=== PATIENT | male | born 1940 | race Hispanic/Latino ===

== ENCOUNTER 2017-03-23 18:47 | Inpatient (IN) | payer MEDICARE, OTHER ==
[2017-03-23 18:48] VITALS: BMI 27.8
--- NOTE | 2017-03-23 19:54 | ED PDOC ---
Syncope/Near Syncope/Dizziness Time Seen by Provider: 03/23/17 19:19 Chief Complaint (Nursing): Syncope Chief Complaint (Provider): Syncope History Per: Patient History/Exam Limitations: no limitations Onset/Duration Of Symptoms: Days (x1) Current Symptoms Are (Timing): Still Present Additional Complaint(s): Lucian Romeo is a 76 year old with previous medical history of myelodysplastic syndrome, CAD, HTN, CHF, hypothyroidism, and COPD, who presents to the emergency department accompanied by his daughter for an evaluation after a syncopal event around 13:00 today. He complains of weakness, nausea, and mild shortness of breath. Denied any chest pain, cough, fever, chills, or weight loss. Of note, patient was discharged yesterday from [facility] after a 2 day stay for general feeling of weakness and nausea. PMD: none provided Past Medical History Reviewed: Historical Data, Nursing Documentation, Vital Signs Vital Signs: Last Vital Signs Temp 97.6 F 03/23/17 18:56 Pulse 64 03/23/17 18:56 Resp 18 03/23/17 18:56 BP 112/58 L 03/23/17 18:56 Pulse Ox 98 03/23/17 18:56 - Medical History PMH: Anemia, Asthma, CAD, COPD, HTN, Hypercholesterolemia, Hyperlipidemia, Hypothyroidism, Chronic Kidney Disease Denies: HIV - Surgical History Surgical History: CABG - Family History Family History: States: No Known Family Hx - Social History Current smoker - smoking cessation education provided: No Alcohol: None Drugs: Denies - Home Medications Home Medications: Ambulatory Orders Medication Instructions Recorded Allopurinol [Zyloprim] 100 mg PO DAILY 12/26/15 Calcitriol [Rocaltrol] 0.25 mcg PO DAILY 12/26/15 Gabapentin [Neurontin] 300 mg PO BID 12/26/15 Metoprolol Succinate [Toprol XL] 200 mg PO DAILY 12/26/15 Omeprazole [Prilosec] 20 mg PO BID 12/26/15 Terazosin [Hytrin] 10 mg PO HS 12/26/15 Citalopram Hydrobromide 60 mg PO DAILY 01/15/16 [Citalopram HBr] Aspirin [Aspirin Chewable] 81 mg PO DAILY 03/23/17 Cholecalciferol [Vitamin D 1000 IU] 1,000 units PO DAILY 03/23/17 Finasteride [Proscar] 5 mg PO DAILY 03/23/17 Fluconazole [Fluconazole] 200 mg PO DAILY 03/23/17 Hydrochlorothiazide [Microzide] 12.5 mg PO DAILY 03/23/17 Isosorbide Mononitrate [Imdur] 60 mg PO DAILY 03/23/17 Levothyroxine [Synthroid] 88 mcg PO DAILY 03/23/17 Lisinopril [Zestril] 20 mg PO DAILY 03/23/17 Simvastatin [Simvastatin] 40 mg PO HS 03/23/17 Zolpidem Tartrate [Ambien] 10 mg PO HS 03/23/17 - Allergies Allergies/Adverse Reactions: Allergies Allergy/AdvReac Type Severity Reaction Status Date / Time No Known Allergies Allergy Verified 12/26/15 12:50 Review of Systems ROS Statement: Except As Marked, All Systems Reviewed And Found Negative Constitutional: Negative for: Fever, Chills, Weight loss Cardiovascular: Negative for: Chest Pain Respiratory: Positive for: Shortness of Breath (mild). Negative for: Cough Gastrointestinal: Positive for: Nausea Neurological: Positive for: Weakness Physical Exam - Reviewed Nursing Documentation Reviewed: Yes Vital Signs Reviewed: Yes - Physical Exam Appears: Positive for: Well, Non-toxic, No Acute Distress Head Exam: Positive for: ATRAUMATIC, NORMAL INSPECTION, NORMOCEPHALIC Skin: Positive for: Normal Color, Warm, DRY Eye Exam: Positive for: Normal appearance Cardiovascular/Chest: Positive for: Regular Rate, Rhythm Respiratory: Positive for: Normal Breath Sounds. Negative for: Crackles, Rales , Rhonchi, Wheezing Extremity: Positive for: Normal ROM. 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 Brain: Mild atrophy. No definite intracranial hemorrhage. No mass. Few scattered foci of decreased attenuation within periventricular/subcortical white matter. No definite edema. Ventricles: No hydrocephalus. Bones/joints: No acute fracture. Soft tissues: Unremarkable. Vasculature: Atherosclerotic disease of intracranial arteries. Sinuses: Scattered minimal mucosal thickening. Mastoid air cells: No mastoid effusion. Orbits: Unremarkable as visualized. IMPRESSION: 1. Nonspecific white matter changes. Acute infarction may be CT occult within first 24 hours. If a focal deficit persists, consider followup CT or MRI for further evaluation. 2. Incidental/non-acute findings are described above. Time: 2058 --Labs: significant clinical abnormality. Hemoglobin level reflect anemia. --Discussed with Dr. Mobley. Patient will be placed in OBS for syncope. Scribe Attestation: Documented by Annie Tamayo, acting as a scribe for Scott Valdez MD. Provider Scribe Attestation: All medical record entries made by the Scribe were at my direction and personally dictated by me. I have reviewed the chart and agree that the record accurately reflects my personal performance of the history, physical exam, medical decision making, and the department course for this patient. I have also personally directed, reviewed, and agree with the discharge instructions and disposition. Disposition - Clinical Impression Clinical Impression: Syncope - Patient ED Disposition Is Patient to be Admitted: Yes Counseled Patient/Family Regarding: Studies Performed, Diagnosis, Need For Followup - Disposition Disposition Time: 20:59 Condition: FAIR - Pt Status Changed To: Hospital Disposition Of: Observation
[2017-03-23 20:09] LABS: ALB/GLOB RATIO 1.2 (1.0-2.1); ALBUMIN 3.9 g/dL (3.5-5.0)
[2017-03-23 20:22] LABS: TROPONIN I 0.015 ng/mL (0.00-0.120)
[2017-03-23 20:25] LABS: PROTHROMBIN TIME 11.2 Seconds (9.8-13.1)
[2017-03-23 20:26] LABS: PARTIAL THROMBOPLASTIN TIME 28.5 Seconds (25.6-37.1)
[2017-03-23 20:28] LABS: BASO % 0.3 % (0.0-2.0); EOS # 0.1 K/uL (0.0-0.7); EOS % 3.3 % (0.0-4.0); LYMPH # 1.5 K/uL (1.0-4.3); LYMPH % 39.6 % (20.0-40.0); MEAN CELL VOLUME 103.1 fl (80.0-94.0); MEAN CORPUSCULAR HEMOGLOBIN 34.8 pg (27.0-31.0); MEAN CORPUSCULAR HGB CONC 33.7 g/dL (33.0-37.0); MONO # 0.5 K/uL (0.0-0.8); MONO % 12.2 % (0.0-10.0); NEUT # 1.7 K/uL (1.8-7.0); NEUT % 44.6 % (50.0-75.0); NRBC % 0.2 % (0.0-0.0); RBC 2.58 Mil/uL (4.40-5.90); RED CELL DISTRIBUTION WIDTH 17.7 % (11.5-14.5); WHITE BLOOD COUNT 3.7 K/uL (4.8-10.8)
--- NOTE | 2017-03-23 21:52 | CT ---
EXAM: CT Head Without Intravenous Contrast CLINICAL HISTORY: 76 years old, male; Signs and symptoms; Syncope and collapse TECHNIQUE: Axial computed tomography images of the head/brain without intravenous contrast. This CT exam was performed using one or more of the following dose reduction techniques: automated exposure control, adjustment of the mA and/or kV according to patient size, and/or use of iterative reconstruction technique. Coronal and sagittal reformatted images were created and reviewed. COMPARISON: CT - HEAD W/O CONTRAST 12/15/2015 2:08:45 PM FINDINGS: Limitations: Motion artifact - mild. Brain: Mild atrophy. No definite intracranial hemorrhage. No mass. Few scattered foci of decreased attenuation within periventricular/subcortical white matter. No definite edema. Ventricles: No hydrocephalus. Bones/joints: No acute fracture. Soft tissues: Unremarkable. Vasculature: Atherosclerotic disease of intracranial arteries. Sinuses: Scattered minimal mucosal thickening. Mastoid air cells: No mastoid effusion. Orbits: Unremarkable as visualized. IMPRESSION: 1. Nonspecific white matter changes. Acute infarction may be CT occult within first 24 hours. If a focal deficit persists, consider followup CT or MRI for further evaluation. 2. Incidental/non-acute findings are described above.
[2017-03-24] MEDS: Levothyroxine 88 MCG TAB PO SCH (06:39)
[2017-03-24 06:58] LABS: HEMOGLOBIN 8.9 g/dL (12.0-18.0); MEAN CELL VOLUME 103.8 fl (80.0-94.0); MEAN CORPUSCULAR HEMOGLOBIN 34.6 pg (27.0-31.0); MEAN CORPUSCULAR HGB CONC 33.4 g/dL (33.0-37.0); RBC 2.56 Mil/uL (4.40-5.90); RED CELL DISTRIBUTION WIDTH 17.9 % (11.5-14.5); WHITE BLOOD COUNT 4.3 K/uL (4.8-10.8)
[2017-03-24 07:20] LABS: ALB/GLOB RATIO 1.1 (1.0-2.1); ALBUMIN 3.7 g/dL (3.5-5.0); CALCIUM 8.9 mg/dL (8.4-10.2)
[2017-03-24] MEDS: Pantoprazole 40 mg EC Tab PO SCH (08:56)
[2017-03-24] MEDS: Metoprolol Succinate 100 mg XL Tab PO SCH (08:57)
[2017-03-24] MEDS: Enoxaparin 30 mg Syringe SC SCH (11:20)
--- NOTE | 2017-03-24 16:04 | CP.PCM.HP ---
<AnishfeliciaWes slade - Last Filed: 03/25/17 10:27> History of Present Illness - History of Present Illness History of Present Illness: 76 year old male with a PMHx remarkable for myelodysplastic syndrome, CAD, HTN , CHF, hypothyroidism, and COPD, who presented to the emergency department accompanied by his daughter for an evaluation after a near syncopal event around 1pm when he was returning from [place]. Pt reports after a recent stay at [facility] he was in his general state of health, but as he was walking back to his car he reports his legs weakened and "gave out". He ended up falling over onto his car and leaned against it till he regained strength. Denies LOC. The leg weakness is associated with lightheadedness, nausea and mild shortness of breath. Denies fever/chills, headaches, CP/Palpitations, V/D/C , urinary symptoms, numbness/tingling. PMD: prior PMD in [place], only being followed at [facility] for Myelodysplastic PMHx: as per HPI Meds: as per med rec ALL: NKDA Social: denies ETOH, tobacco, drug abuse ED COURSE: CT head without contrast EKG BNP Labs Troponin I PTT Accucheck Urinalysis Present on Admission - Present on Admission Any Indicators Present on Admission: No Review of Systems - Review of Systems All systems: reviewed and no additional remarkable complaints except - Constitutional Constitutional: As Per HPI Past Patient History - Past Medical History & Family History Past Medical History?: No - Past Social History Smoking Status: Never Smoked Alcohol: None Drugs: Denies Home Situation {Lives}: With Family Domestic Violence: Negative - CARDIAC Hx Hypercholesterolemia: Yes Hx Hypertension: Yes - PULMONARY Hx Asthma: Yes Hx Chronic Obstructive Pulmonary Disease (COPD): Yes - NEUROLOGICAL Hx Neurological Disorder: No - HEENT Hx HEENT Problems: No - RENAL Hx Chronic Kidney Disease: Yes - ENDOCRINE/METABOLIC Hx Hypothyroidism: Yes - HEMATOLOGICAL/ONCOLOGICAL Hx Anemia: Yes Hx Human Immunodeficiency Virus (HIV): No - INTEGUMENTARY Hx Dermatological Problems: No - MUSCULOSKELETAL/RHEUMATOLOGICAL Hx Falls: Yes - GASTROINTESTINAL Hx Gastrointestinal Disorders: No - GENITOURINARY/GYNECOLOGICAL Hx Prostate Problems: Yes - PSYCHIATRIC Hx Psychophysiologic Disorder: No Hx Substance Use: No - SURGICAL HISTORY Hx Coronary Artery Bypass Graft: Yes - ANESTHESIA Hx Anesthesia: Yes Hx Anesthesia Reactions: No Hx Malignant Hyperthermia: No Meds Allergies/Adverse Reactions: Allergies Allergy/AdvReac Type Severity Reaction Status Date / Time No Known Allergies Allergy Verified 12/26/15 12:50 Physical Exam - Constitutional Appears: Non-toxic, No Acute Distress - Head Exam Head Exam: ATRAUMATIC, NORMOCEPHALIC - Eye Exam Eye Exam: EOMI. absent: Conjunctival injection, Scleral icterus Pupil Exam: PERRL - ENT Exam ENT Exam: Mucous Membranes Moist - Neck Exam Neck exam: Positive for: Normal Inspection - Respiratory Exam Respiratory Exam: Clear to Auscultation Bilateral, NORMAL BREATHING PATTERN. absent: Rales, Rhonchi, Wheezes - Cardiovascular Exam Cardiovascular Exam: REGULAR RHYTHM, RRR, +S1, +S2. absent: Tachycardia, Gallop , JVD, Rubs, Systolic Murmur - GI/Abdominal Exam GI & Abdominal Exam: Normal Bowel Sounds, Soft. absent: Distended, Firm, Guarding, Hernia, Tenderness - Extremities Exam Extremities exam: Positive for: full ROM, normal inspection, pedal pulses present. Negative for: pedal edema, tenderness - Back Exam Back exam: NORMAL INSPECTION - Neurological Exam Neurological exam: Alert, CN II-XII Intact, Normal Gait, Oriented x3, Reflexes Normal - Psychiatric Exam Psychiatric exam: Normal Affect, Normal Mood Results - Vital Signs Recent Vital Signs: Last Vital Signs Temp 97.6 F 03/24/17 12:32 Pulse 63 03/24/17 12:32 Resp 20 03/24/17 12:32 BP 114/67 03/24/17 12:32 Pulse Ox 97 03/24/17 12:32 - Labs Result Diagrams: 03/24/17 05:25 03/25/17 09:40 Labs: Laboratory Results - last 24 hr 03/24/17 03/24/17 03/24/17 05:25 05:25 05:25 WBC 4.3 L RBC 2.56 L Hgb 8.9 L Hct 26.6 L MCV 103.8 H MCH 34.6 H MCHC 33.4 RDW 17.9 H Plt Count 80 L Sodium 137 Potassium 4.0 Chloride 104 Carbon Dioxide 25 Anion Gap 13 BUN 64 H Creatinine 3.0 H Est GFR ( Amer) 25 Est GFR (Non-Af Amer) 21 Random Glucose 84 Hemoglobin A1c 6.3 Calcium 8.9 Total Bilirubin 0.3 AST 26 ALT 29 Alkaline Phosphatase 45 Troponin I Total Protein 6.9 Albumin 3.7 Globulin 3.2 Albumin/Globulin Ratio 1.1 Triglycerides 142 Cholesterol 116 LDL Cholesterol Direct 51 HDL Cholesterol 25 L TSH 3rd Generation 3.79 03/24/17 05:25 WBC RBC Hgb Hct MCV MCH MCHC RDW Plt Count Sodium Potassium Chloride Carbon Dioxide Anion Gap BUN Creatinine Est GFR ( Amer) Est GFR (Non-Af Amer) Random Glucose Hemoglobin A1c Calcium Total Bilirubin AST ALT Alkaline Phosphatase Troponin I 0.0240 Total Protein Albumin Globulin Albumin/Globulin Ratio Triglycerides Cholesterol LDL Cholesterol Direct HDL Cholesterol TSH 3rd Generation Assessment & Plan (1) Near syncope Assessment and Plan: neurology consult with Dr. Barboza cardiology consult with Dr. Perkins f/u labs admitted to tele for monitoring Status: Acute (2) HTN (hypertension) Assessment and Plan: changed Metoprolol 200mg to 50mg BID D/Blake HCTZ Added Amlodipine 5mg QD Status: Chronic (3) Chronic kidney disease (CKD) Assessment and Plan: GFR noted to be [address] Rogers appreciated Status: Chronic (4) DVT prophylaxis Assessment and Plan: Lovenox SC QD Status: Acute <Riley Kern L - Last Filed: 03/26/17 09:40> Results - Vital Signs Recent Vital Signs: Last Vital Signs Temp 98.1 F 03/26/17 08:48 Pulse 59 L 03/26/17 08:48 Resp 20 03/26/17 08:48 BP 169/77 H 03/26/17 08:48 Pulse Ox 98 03/26/17 08:48 - Labs Result Diagrams: 03/24/17 05:25 03/26/17 08:35 Labs: Laboratory Results - last 24 hr 03/25/17 03/25/17 03/25/17 09:40 10:35 18:30 Sodium 137 Potassium 3.5 L Chloride 103 Carbon Dioxide 24 Anion Gap 14 BUN 53 H Creatinine 2.6 H Est GFR ( Amer) 29 Est GFR (Non-Af Amer) 24 Random Glucose 144 H Calcium 9.1 Total Bilirubin AST ALT Alkaline Phosphatase Total Protein Albumin Globulin Albumin/Globulin Ratio Urine Color Straw Urine Clarity Clear Urine pH 7.0 Ur Specific [place] 1.010 Urine Protein 30 Urine Glucose (UA) Neg Urine Ketones Negative Urine Blood Negative Urine Nitrate Negative Urine Bilirubin Negative Urine Urobilinogen 0.2-1.0 Ur Leukocyte Esterase Neg Urine RBC (Auto) 1 Urine Microscopic WBC < 1 Hep Bs Antigen Negative Hep Bs Antibody Hepatitis C Antibody 03/25/17 03/25/17 03/26/17 18:30 18:30 08:35 Sodium 136 Potassium 4.0 Chloride 105 Carbon Dioxide 24 Anion Gap 12 BUN 49 H Creatinine 2.2 H Est GFR ( Amer) 36 Est GFR (Non-Af Amer) 29 Random Glucose 89 Calcium 9.1 Total Bilirubin 0.2 AST 21 ALT 32 Alkaline Phosphatase 47 Total Protein 6.6 Albumin 3.6 Globulin 3.0 Albumin/Globulin Ratio 1.2 Urine Color Urine Clarity Urine pH Ur Specific [place] Urine Protein Urine Glucose (UA) Urine Ketones Urine Blood Urine Nitrate Urine Bilirubin Urine Urobilinogen Ur Leukocyte Esterase Urine RBC (Auto) Urine Microscopic WBC Hep Bs Antigen Hep Bs Antibody Negative Hepatitis C Antibody Negative Assessment & Plan - Assessment and Plan (Free Text) Plan: I was present during evaluation and discussed with Dr Daniel re plans of care and mgt Riley Kern M.D.
--- NOTE | 2017-03-24 17:43 | CP.PCM.CON ---
History of Present Illness - History of Present Illness History of Present Illness: I was asked to see patietn by Dr. Kern. Patient is a 76 year old male with a PMH HTN, who presents with dizziness. The patient had a recent hospital stay at [facility] for nausea and vomiting. The patient has a history of myeodysplastic syndrome and is currently being treated at [facility]. He was walking when he felt lighheaded. He denies chest pain or palpitations. Review of Systems - Constitutional Constitutional: Weakness - EENT Eyes: absent: As Per HPI, Blind Spots, Blurred Vision, Change in Vision, Decreased Night Vision, Diplopia, Discharge, Dry Eye, Exophthalmos, Floaters, Irritation, Itchy Eyes, Loss of Peripheral Vision, Pain, Photophobia, Requires Corrective Lenses, Sees Flashes, Spots in Vision, Tunnel Vision, Other Visual Disturbances, Loss of Vision, Other Ears: absent: As Per HPI, Decreased Hearing, Ear Discharge, Ear Pain, Tinnitus, Abnormal Hearing, Disequilibrium, Dizziness, Other Nose/Mouth/Throat: absent: As Per HPI, Epistaxis, Nasal Congestion, Nasal Discharge, Nasal Obstruction, Nasal Trauma, Nose Pain, Post Nasal Drip, Sinus Pain, Sinus Pressure, Bleeding Gums, Change in Voice, Dental Pain, Dry Mouth, Dysphagia, Halitosis, Hoarsness, Lip Swelling, Mouth Lesions, Mouth Pain, Odynophagia, Sore Throat, Throat Swelling, Tongue Swelling, Facial Pain, Neck Pain, Neck Mass, Other - Cardiovascular Cardiovascular: absent: As Per HPI, Acrocyanosis, Chest Pain, Chest Pain at Rest , Chest Pain with Activity, Claudication, Diaphoresis, Dyspnea, Dyspnea on Exertion, Edema, Irregular Heart Rhythm, Pain Radiating to Arm/Neck/Jaw, Leg Edema, Leg Ulcers, Lightheadedness, Orthopnea, Palpitations, Paroxysmal Nocturnal Dyspnea, Pedal Edema, Radiating Pain, Rapid Heart Rate, Slow Heart Rate, Syncope, Other - Respiratory Respiratory: absent: As Per HPI, Cough, Dyspnea, Hemoptysis, Dyspnea on Exertion , Wheezing, Snoring, Stridor, Pain on Inspiration, Chest Congestion, Excessive Mucous Production, Change in Mucous Color, Pain with Coughing, Other - Gastrointestinal Gastrointestinal: absent: As Per HPI, Abdominal Pain, Belching, Bloating, Change in Bowel Habits, Change in Stool Character, Coffee Ground Emesis, Constipation, Cramping, Diarrhea, Dyspepsia, Dysphagia, Early Satiety, Excessive Flatus, Fecal Incontinence, Heartburn, Hematemesis, Hematochezia, Loose Stools, Melena, Nausea, Odynophagia, Temesmus, Vomiting, Other - Genitourinary Genitourinary: absent: As Per HPI, Change in Urinary Stream, Difficulty Urinating, Dysuria, Flank Pain, Hematuria, Pyuria, Nocturia, Urinary Incontinence, Urinary Frequency, Urinary Hesitance, Urinary Urgency, Voiding Freq/Small Amts, Freq UTI, Hx Renal/Bladder Calculi, Hx /Renal Surgery, Bladder Distension, Other - Musculoskeletal Musculoskeletal: absent: As Per HPI, Abnormal Gait, Arthralgias, Atrophy, Back Pain, Deformity, Joint Swelling, Limited Range of Motion, Loss of Height, Muscle Cramps, Muscle Weakness, Myalgias, Neck Pain, Numbness, Radiating Pain into Limb, Stiffness, Tingling, Other - Integumentary Integumentary: absent: As Per HPI, Acne, Alopecia, Bleeding Lesions, Change in Hair, Change in Nails, Change in Pigmentation, Changing Lesions, Dry Skin, Erythema, Furuncle, Hirsutism, Lesions, New Lesions, Non-Healing Lesions, Photosensitivity, Pruritus, Rash, Skin Pain, Skin Ulcer, Sores, Striae, Swelling , Unusual Bruising, Wounds, Jaundice, Other - Neurological Neurological: absent: As Per HPI, Abnormal Gait, Abnormal Hearing, Abnormal Movements, Abnormal Speech, Behavioral Changes, Burning Sensations, Confusion, Convulsions, Disequilibrium, Dizziness, Numbness, Focal Weakness, Frequent Falls , Headaches, Lack of Coordination, Loss of Vision, Memory Loss, Paresthesias, Radicular Pain, Restless Legs, Sensory Deficit, Syncope, Tingling, Tremor, Vertigo, Weakness, Other Visual Disturbances, Other - Psychiatric Psychiatric: absent: As Per HPI, Abnormal Sleep Pattern, Anhedonia, Anxiety, Auditory Hallucinations, Behavioral Changes, Change in Appetite, Change in Libido, Confusion, Depression, Difficulty Concentrating, Hallucinations, Homicidal Ideation, Hopelessness, Irritability, Memory Loss, Mood Swings, Panic Attacks, Paranoia, Suicidal Ideation, Visual Hallucinations, Tactile Hallucinations, Other - Endocrine Endocrine: absent: As Per HPI, Change in Body Appearance, Change in Libido, Cold Intolorance, Deepening of Voice, Excessive Sweating, Fatigue, Flushing, Heat Intolorance, Increase in Ring/Shoe/Hat Size, Palpitations, Polydipsia, Polyphagia, Polyuria, Other - Hematologic/Lymphatic Hematologic: absent: As Per HPI, Easy Bleeding, Easy Bruising, Lymphadenopathy, Other Past Patient History - Past Medical History & Family History Past Medical History?: No - Past Social History Alcohol: None Drugs: Denies - CARDIAC Hx Hypercholesterolemia: Yes Hx Hypertension: Yes - PULMONARY Hx Asthma: Yes Hx Chronic Obstructive Pulmonary Disease (COPD): Yes - NEUROLOGICAL Hx Neurological Disorder: No - HEENT Hx HEENT Problems: No - RENAL Hx Chronic Kidney Disease: Yes - ENDOCRINE/METABOLIC Hx Hypothyroidism: Yes - HEMATOLOGICAL/ONCOLOGICAL Hx Anemia: Yes Hx Human Immunodeficiency Virus (HIV): No - INTEGUMENTARY Hx Dermatological Problems: No - MUSCULOSKELETAL/RHEUMATOLOGICAL Hx Falls: Yes - GASTROINTESTINAL Hx Gastrointestinal Disorders: No - GENITOURINARY/GYNECOLOGICAL Hx Prostate Problems: Yes - PSYCHIATRIC Hx Psychophysiologic Disorder: No Hx Substance Use: No - SURGICAL HISTORY Hx Coronary Artery Bypass Graft: Yes - ANESTHESIA Hx Anesthesia: Yes Hx Anesthesia Reactions: No Hx Malignant Hyperthermia: No Meds Allergies/Adverse Reactions: Allergies Allergy/AdvReac Type Severity Reaction Status Date / Time No Known Allergies Allergy Verified 12/26/15 12:50 - Medications Medications: Current Medications Acetaminophen (Tylenol 325mg Tab) 650 mg PO Q6 PRN PRN Reason: Pain, moderate (4-7) Last Admin: 03/24/17 17:11 Dose: 650 mg Allopurinol (Zyloprim) 100 mg PO DAILY [facility] Last Admin: 03/24/17 08:57 Dose: 100 mg Aspirin (Aspirin Chewable) 81 mg PO DAILY [facility] Last Admin: 03/24/17 08:55 Dose: 81 mg Atorvastatin Calcium (Lipitor) 20 mg PO [facility] Calcitriol (Rocaltrol) 0.25 mcg PO DAILY [facility] Last Admin: 03/24/17 08:56 Dose: 0.25 mcg Cholecalciferol (Vitamin D) 1,000 iu PO DAILY [facility] Last Admin: 03/24/17 08:57 Dose: 1,000 iu Enoxaparin Sodium (Lovenox) 30 mg SC DAILY [facility] PRN Reason: Protocol Last Admin: 03/24/17 11:20 Dose: 30 mg Finasteride (Proscar) 5 mg PO DAILY [facility] Last Admin: 03/24/17 08:56 Dose: 5 mg Fluconazole (Diflucan) 200 mg PO DAILY [facility] Last Admin: 03/24/17 08:55 Dose: 200 mg Gabapentin (Neurontin) 300 mg PO BID [facility] Last Admin: 03/24/17 17:09 Dose: 300 mg Home Med (Citalopram Hydrobromide [Citalopram Hbr]) 60 mg PO DAILY [facility] Hydrochlorothiazide (Microzide) 12.5 mg PO DAILY [facility] Last Admin: 03/24/17 08:56 Dose: 12.5 mg Isosorbide Mononitrate (Imdur) 60 mg PO DAILY [facility] Last Admin: 03/24/17 08:56 Dose: 60 mg Levothyroxine Sodium (Synthroid) 88 mcg PO DAILY@0630 [facility] Last Admin: 03/24/17 06:39 Dose: 88 mcg Lisinopril (Zestril) 20 mg PO DAILY [facility] Last Admin: 03/24/17 08:57 Dose: 20 mg Metoprolol Succinate (Toprol Xl) 200 mg PO DAILY [facility] Last Admin: 03/24/17 08:57 Dose: 200 mg Pantoprazole Sodium (Protonix Ec Tab) 40 mg PO DAILY [facility] Last Admin: 03/24/17 08:56 Dose: 40 mg Terazosin HCl (Hytrin) 10 mg PO [facility] Zolpidem Tartrate (Ambien) 5 mg PO HS PRN PRN Reason: Insomnia Last Admin: 03/24/17 01:11 Dose: 5 mg Physical Exam - Constitutional Appears: Non-toxic - Head Exam Head Exam: NORMAL INSPECTION - Eye Exam Eye Exam: Normal appearance - ENT Exam ENT Exam: Mucous Membranes Moist - Neck Exam Neck exam: Positive for: Normal Inspection - Respiratory Exam Respiratory Exam: NORMAL BREATHING PATTERN - Cardiovascular Exam Cardiovascular Exam: REGULAR RHYTHM - GI/Abdominal Exam GI & Abdominal Exam: Normal Bowel Sounds - Rectal Exam Rectal Exam: Deferred - Extremities Exam Extremities exam: Positive for: pedal pulses present - Back Exam Back exam: NORMAL INSPECTION - Neurological Exam Neurological exam: Alert, Oriented x3 - Psychiatric Exam Psychiatric exam: Normal Mood - Skin Skin Exam: Normal Color Results - Vital Signs Recent Vital Signs: Last Vital Signs Temp 97.5 F L 03/24/17 16:09 Pulse 60 03/24/17 16:09 Resp 16 03/24/17 16:09 BP 151/62 H 03/24/17 16:09 Pulse Ox 98 03/24/17 16:09 - Labs Result Diagrams: 03/24/17 05:25 03/26/17 08:35 Labs: Laboratory Results - last 24 hr 03/24/17 03/24/17 03/24/17 05:25 05:25 05:25 WBC 4.3 L RBC 2.56 L Hgb 8.9 L Hct 26.6 L MCV 103.8 H MCH 34.6 H MCHC 33.4 RDW 17.9 H Plt Count 80 L Sodium 137 Potassium 4.0 Chloride 104 Carbon Dioxide 25 Anion Gap 13 BUN 64 H Creatinine 3.0 H Est GFR ( Amer) 25 Est GFR (Non-Af Amer) 21 Random Glucose 84 Hemoglobin A1c 6.3 Calcium 8.9 Total Bilirubin 0.3 AST 26 ALT 29 Alkaline Phosphatase 45 Troponin I Total Protein 6.9 Albumin 3.7 Globulin 3.2 Albumin/Globulin Ratio 1.1 Triglycerides 142 Cholesterol 116 LDL Cholesterol Direct 51 HDL Cholesterol 25 L TSH 3rd Generation 3.79 03/24/17 05:25 WBC RBC Hgb Hct MCV MCH MCHC RDW Plt Count Sodium Potassium Chloride Carbon Dioxide Anion Gap BUN Creatinine Est GFR ( Amer) Est GFR (Non-Af Amer) Random Glucose Hemoglobin A1c Calcium Total Bilirubin AST ALT Alkaline Phosphatase Troponin I 0.0240 Total Protein Albumin Globulin Albumin/Globulin Ratio Triglycerides Cholesterol LDL Cholesterol Direct HDL Cholesterol TSH 3rd Generation - EKG Data EKG Interpreted by: Myself Assessment & Plan (1) HTN (hypertension) Assessment and Plan: monitor blood pressure Status: Chronic (2) Near syncope Assessment and Plan: likley due to myelodysplastic. will monitor on telemetry for arrhythmia Status: Resolved
--- NOTE | 2017-03-24 20:34 | CON ---
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 He was coming back from [place] outside in the car, where he felt lightheaded and has passed out from generalized weakness. He was more lightheadedness rather than spinning sensation of the room. He is found to have thought to be elevated BUN and creatinine and became possible more dehydration. He is slightly anemic at baseline and had a transient possible drop in his blood pressure, which he initially came in with 112/58. Currently, no focal neurological symptoms seen on examination. He is currently clinically stable. His CT had showed no intracranial abnormality. PAST MEDICAL HISTORY: History of hypertension, myelodysplastic syndrome seen by pottery decorator, history of COPD, hypothyroidism. FAMILY HISTORY: Noncontributory. MEDICATIONS: Medications reviewed by nurse practitioner. ALLERGIES: NO KNOWN DRUG ALLERGIES. SOCIAL HISTORY: No illicit drug use, smoking, or EtOH abuse. REVIEW OF SYSTEMS: A 14-point review of systems except in HPI. PHYSICAL EXAMINATION: GENERAL: The patient is seen up in bed in no acute distress. VITAL SIGNS: Temperature of 97.5, pulse rate of 60, blood pressure 151/60, respiratory rate 16, oxygen saturation 98% on room air. HEENT: Atraumatic and normocephalic. PERRLA. Extraocular muscles are intact. NECK: Supple. No JVD. No adenopathy noted. LUNGS: Clear to auscultation. No adventitious sounds. HEART: S1 and S2, normal rate and rhythm. No murmurs, rubs, or gallops. ABDOMEN: Soft, nontender, and nondistended. Bowel sounds are present. EXTREMITIES: No clubbing, no cyanosis. Peripheral pulses 2+ bilaterally. NEUROLOGIC: The patient is alert and oriented to person, place, month, year and visual awareness. Cranial nerves II through XII are intact. Motor exam: Moves all extremities equally. Toes are downgoing bilaterally. Sensory exam: Light touch pinprick, proprioception, vibration is intact. DTRs are 2+ throughout and 1 at the ankles. Coordination [id number] intact. Gait deferred for now. LABORATORY DATA: Sodium is 137, potassium 4, chloride 104, carbon dioxide 25, BUN of 64, creatinine of 3, glucose of 84. ASSESSMENT: This is a 76-year-old man with history of hypothyroidism, history of hypertension, dyslipidemia, anemia, myelodysplastic syndrome, and chronic obstructive pulmonary disease. He had dizziness especially out in the hot sun walking back from [facility] and felt lightheaded, but denied any palpitations or chest pain. No seizure like events. CT of the head showed no intracranial abnormality. He had a slightly lower blood pressure when he came in initially. He had an elevated BUN and creatinine levels as well mild dehydration. At this time, his syncopal event was likely secondary to vasovagal type nature, secondary from mild dehydration and possible transient cerebral hypoperfusion to the brain. RECOMMENDATION: At this time. 1. Continue with aspirin 81 mg and Lipitor 20 mg for his stroke prevention. 2. Continue with his gabapentin 300 mg p.o. b.i.d. for neuropathic pain relief. 3. Keep his blood pressure between 130 to 140 mmHg. 4. Continue current present medical management, PT evaluation. At this time, he is neurologically stable. Melvin Barboza MD
[2017-03-24] MEDS ORDERED: TERAZOSIN 10 MG PO SCH (22:00)
--- NOTE | 2017-03-24 23:56 | CARD ---
APPROVED REPORT EKG Measurement Heart [id number] <Conclusion> Sinus bradycardia Cannot rule out Inferior infarct, age undetermined T wave abnormality, consider lateral ischemia Abnormal ECG
[2017-03-25] MEDS: Levothyroxine 88 MCG TAB PO SCH (06:15)
[2017-03-25] MEDS: Enoxaparin 30 mg Syringe SC SCH (08:43)
[2017-03-25] MEDS: Pantoprazole 40 mg EC Tab PO SCH (08:46)
[2017-03-25] MEDS: Metoprolol Succinate 100 mg XL Tab PO SCH (08:46)
[2017-03-25 10:23] LABS: CALCIUM 9.1 mg/dL (8.4-10.2)
--- NOTE | 2017-03-25 10:27 | CP.PCM.PN ---
<Wes Daniel - Last Filed: 03/25/17 11:53> Subjective - Date & Time of Evaluation Date of Evaluation: 03/25/17 Time of Evaluation: 10:27 - Subjective Subjective: pt seen and examined at bedside. No acute events overnight. Reports feeling better overall. No new complaints. Lying in bed comfortably, NAD. Denies fever/ chills, headaches, changes in vision, CP/SOB/Palpitations, N/V/D/C, urinary symptoms, numbness/tingling. Objective - Vital Signs/Intake and Output Vital Signs (last 24 hours): Temp Pulse Resp BP Pulse Ox 98.2 F 56 L 20 156/72 H 97 03/25/17 08:00 03/25/17 08:46 03/25/17 08:00 03/25/17 08:46 03/25/17 08:00 - Medications Medications: Current Medications Acetaminophen (Tylenol 325mg Tab) 650 mg PO Q6 PRN PRN Reason: Pain, moderate (4-7) Last Admin: 03/24/17 17:11 Dose: 650 mg Allopurinol (Zyloprim) 100 mg PO DAILY [facility] Last Admin: 03/25/17 08:46 Dose: 100 mg Amlodipine Besylate (Norvasc) 5 mg PO DAILY [facility] Aspirin (Aspirin Chewable) 81 mg PO DAILY [facility] Last Admin: 03/25/17 08:46 Dose: 81 mg Atorvastatin Calcium (Lipitor) 20 mg PO HS [facility] Last Admin: 03/24/17 21:18 Dose: 20 mg Calcitriol (Rocaltrol) 0.25 mcg PO DAILY [facility] Last Admin: 03/25/17 08:46 Dose: 0.25 mcg Cholecalciferol (Vitamin D) 1,000 iu PO DAILY [facility] Last Admin: 03/25/17 08:46 Dose: 1,000 iu Citalopram Hydrobromide (Celexa) 60 mg PO DAILY [facility] Enoxaparin Sodium (Lovenox) 30 mg SC DAILY [facility] PRN Reason: Protocol Last Admin: 03/25/17 08:43 Dose: 30 mg Finasteride (Proscar) 5 mg PO DAILY [facility] Last Admin: 03/25/17 08:46 Dose: 5 mg Fluconazole (Diflucan) 200 mg PO DAILY [facility] Last Admin: 03/25/17 08:46 Dose: 200 mg Gabapentin (Neurontin) 300 mg PO BID [facility] Last Admin: 03/25/17 08:45 Dose: 300 mg Isosorbide Mononitrate (Imdur) 60 mg PO DAILY [facility] Last Admin: 03/25/17 08:44 Dose: 60 mg Levothyroxine Sodium (Synthroid) 88 mcg PO DAILY@0630 [facility] Last Admin: 03/25/17 06:15 Dose: 88 mcg Lisinopril (Zestril) 20 mg PO DAILY [facility] Last Admin: 03/25/17 08:45 Dose: Not Given Metoprolol Tartrate (Lopressor) 50 mg PO Q12 [facility] Pantoprazole Sodium (Protonix Ec Tab) 40 mg PO DAILY [facility] Last Admin: 03/25/17 08:46 Dose: 40 mg Terazosin HCl (Hytrin) 10 mg PO HS [facility] Last Admin: 03/24/17 21:18 Dose: 10 mg Zolpidem Tartrate (Ambien) 5 mg PO HS PRN PRN Reason: Insomnia Last Admin: 03/24/17 22:03 Dose: 5 mg - Labs Labs: 03/25/17 09:40 PT 11.2 Seconds (9.8-13.1) 03/23/17 19:55 INR 1.0 (0.9-1.2) 03/23/17 19:55 APTT 28.5 Seconds (25.6-37.1) 03/23/17 19:55 - Constitutional Appears: Non-toxic, No Acute Distress - Head Exam Head Exam: ATRAUMATIC, NORMOCEPHALIC - Eye Exam Eye Exam: EOMI Pupil Exam: PERRL - Respiratory Exam Respiratory Exam: Clear to Ausculation Bilateral, NORMAL BREATHING PATTERN. absent: Rales, Rhonchi, Wheezes - Cardiovascular Exam Cardiovascular Exam: REGULAR RHYTHM, RRR, +S1, +S2. absent: Tachycardia, Gallop , JVD, Rubs, Murmur - GI/Abdominal Exam GI & Abdominal Exam: Soft, Normal Bowel Sounds. absent: Firm, Guarding, Rigid, Tenderness, Rebound - Extremities Exam Extremities Exam: Normal Inspection. absent: Calf Tenderness, Pedal Edema, Tenderness - Neurological Exam Neurological Exam: Alert, Awake, CN II-XII Intact, Oriented x3 - Psychiatric Exam Psychiatric exam: Normal Affect, Normal Mood - Skin Skin Exam: Dry, Intact, Normal Color, Warm Assessment and Plan (1) Near syncope Assessment & Plan: cleared from neurology standpoint labs notable for anemia, worsening renal function Status: Resolved (2) HTN (hypertension) Assessment & Plan: changed medication regimen as this maybe reason for near syncope metoprolol 50mg BID Amlodipine 5mg QD D/Blake HCTZ Status: Chronic (3) Chronic kidney disease (CKD) Assessment & Plan: GFR [address] Rogers appreciated Status: Chronic (4) DVT prophylaxis Assessment & Plan: Lovenox SC QD Status: Acute <ErlinRiley L - Last Filed: 03/26/17 09:40> Objective - Vital Signs/Intake and Output Vital Signs (last 24 hours): Temp Pulse Resp BP Pulse Ox 98.1 F 59 L 20 169/77 H 98 03/26/17 08:48 03/26/17 08:48 03/26/17 08:48 03/26/17 08:48 03/26/17 08:48 Intake and Output: 03/26/17 03/26/17 06:59 18:59 Intake Total 760 Output Total 1500 Balance -740 - Medications Medications: Current Medications Acetaminophen (Tylenol 325mg Tab) 650 mg PO Q6 PRN PRN Reason: Pain, moderate (4-7) Last Admin: 03/24/17 17:11 Dose: 650 mg Allopurinol (Zyloprim) 100 mg PO DAILY [facility] Last Admin: 03/26/17 08:16 Dose: 100 mg Amlodipine Besylate (Norvasc) 5 mg PO DAILY [facility] Last Admin: 03/26/17 08:18 Dose: 5 mg Aspirin (Aspirin Chewable) 81 mg PO DAILY [facility] Last Admin: 03/26/17 08:17 Dose: 81 mg Atorvastatin Calcium (Lipitor) 20 mg PO HS [facility] Last Admin: 03/25/17 21:48 Dose: 20 mg Calcitriol (Rocaltrol) 0.25 mcg PO DAILY [facility] Last Admin: 03/26/17 08:16 Dose: 0.25 mcg Cholecalciferol (Vitamin D) 1,000 iu PO DAILY [facility] Last Admin: 03/26/17 08:16 Dose: 1,000 iu Citalopram Hydrobromide (Celexa) 60 mg PO DAILY [facility] Enoxaparin Sodium (Lovenox) 30 mg SC DAILY [facility] PRN Reason: Protocol Last Admin: 03/26/17 08:19 Dose: 30 mg Finasteride (Proscar) 5 mg PO DAILY [facility] Last Admin: 03/26/17 08:16 Dose: 5 mg Fluconazole (Diflucan) 200 mg PO DAILY [facility] Last Admin: 03/26/17 08:17 Dose: 200 mg Gabapentin (Neurontin) 300 mg PO BID [facility] Last Admin: 03/26/17 08:18 Dose: 300 mg Potassium Chloride 20 meq/ (Sodium Chloride) 1,010 mls @ 70 mls/hr IV .[id number] [facility] Stop: 03/26/17 23:25 Last Admin: 03/26/17 01:30 Dose: 70 mls/hr Isosorbide Mononitrate (Imdur) 60 mg PO DAILY [facility] Last Admin: 03/26/17 08:17 Dose: 60 mg Levothyroxine Sodium (Synthroid) 88 mcg PO DAILY@0630 [facility] Last Admin: 03/26/17 06:10 Dose: 88 mcg Lisinopril (Zestril) 20 mg PO DAILY [facility] Last Admin: 03/26/17 08:17 Dose: 20 mg Metoprolol Tartrate (Lopressor) 50 mg PO Q12 [facility] Last Admin: 03/26/17 08:22 Dose: 50 mg Pantoprazole Sodium (Protonix Ec Tab) 40 mg PO DAILY [facility] Last Admin: 03/26/17 08:16 Dose: 40 mg Terazosin HCl (Hytrin) 10 mg PO HS [facility] Last Admin: 03/25/17 21:48 Dose: 10 mg Zolpidem Tartrate (Ambien) 5 mg PO HS PRN PRN Reason: Insomnia Last Admin: 03/25/17 23:36 Dose: 5 mg - Labs Labs: 03/26/17 08:35 PT 11.2 Seconds (9.8-13.1) 03/23/17 19:55 INR 1.0 (0.9-1.2) 03/23/17 19:55 APTT 28.5 Seconds (25.6-37.1) 03/23/17 19:55 Assessment and Plan - Assessment and Plan (Free Text) Plan: I was prtesent during evaluation and discussed with Dr Daniel re plans of car and discharge Riley Kern M.D.
--- NOTE | 2017-03-25 18:31 | CARD ---
APPROVED REPORT EXAM: Two-dimensional and M-mode echocardiogram with Doppler and color Doppler. Other Information Quality : GoodRhythm : NSR INDICATION Syncope Surgery/Intervention CABG: Date: 1998 2D DIMENSIONS IVSd1.23 (0.7-1.1cm)LVDd4.41 (3.9-5.9cm) LVOT Diameter2.99 (1.8-2.4cm)PWd1.01 (0.7-1.1cm) IVSs1.74 (0.8-1.2cm)LVDs3.00 (2.5-4.0cm) FS (%) 32.0 %PWs1.42 (0.8-1.2cm) LVEF (%)50.0 (>50%) M-Mode DIMENSIONS Left Atrium (MM)3.81 (2.5-4.0cm)IVSd1.06 (0.7-1.1cm) Aortic Root3.84 (2.2-3.7cm)LVDd5.03 (4.0-5.6cm) Aortic Cusp Exc.1.72 (1.5-2.0cm)PWd1.06 (0.7-1.1cm) IVSs1.22 cmFS (%) 34 % LVDs3.34 (2.0-3.8cm)PWs1.42 cm Mitral Valve MV E Vgfvhvwy56.9cm/sMV DECEL [id number] A Eediaowp14.0cm/s MV CYF051enD/A ratio0.7MVA (PHT)1.76cm2 TDI Lateral E' Peak V8.80cm/sMedial E' Peak V4.16cm/sE/Lateral E'7.6 E/Medial E'16.1 Pulmonary Valve PV Peak Gbsrwxei29.4cm/s Tricuspid Valve TR Peak Nslrywjs452db/sRAP EWRZYYSD72mkErBA Peak Gr.22mmHg ELAT28nkFr LEFT VENTRICLE The left ventricle is normal size. There is borderline to mild concentric left ventricular hypertrophy. Left ventricle is borderline. Apical hypokinesis Transmitral Doppler flow pattern is Grade I-abnormal relaxation pattern. Apical echoes consistent with trabeculae are noted. Cannot rule out associated thrombi. RIGHT VENTRICLE The right ventricle is normal size. There is normal right ventricular wall thickness. The right ventricular systolic function is normal. ATRIA The left atrium size is normal. The right atrium size is normal. AORTIC VALVE The aortic valve is moderately sclerotic. There is mild to moderate aortic regurgitation. There is no aortic valvular stenosis. MITRAL VALVE The mitral valve is moderately thickened. There is no mitral valve stenosis. There is no mitral valve regurgitation noted. TRICUSPID VALVE The tricuspid valve is normal in structure and function. There is no tricuspid valve regurgitation noted. PULMONIC VALVE The pulmonary valve is normal in structure and function. There is no pulmonic valvular regurgitation. GREAT VESSELS The aortic root is mildly enlarged. The IVC was not visualized. PERICARDIAL EFFUSION There is a small loculated anterior pericardial effusion. <Conclusion> There is borderline to mild concentric left ventricular hypertrophy. Left ventricle is borderline. Apical hypokinesis Transmitral Doppler flow pattern is Grade I-abnormal relaxation pattern. Apical echoes consistent with trabeculae are noted. Cannot rule out associated thrombi. There is mild to moderate aortic regurgitation.
--- NOTE | 2017-03-25 20:15 | CP.PCM.CON ---
History of Present Illness - History of Present Illness History of Present Illness: pt seen and examined, full consult is dictated #[id number] 1. dagmar on ckd 2. pancytopenia 3. htn 4. MDS see orders Past Patient History - Past Medical History & Family History Past Medical History?: No - Past Social History Smoking Status: Never Smoked Alcohol: None Drugs: Denies Home Situation {Lives}: With Family Domestic Violence: Negative - CARDIAC Hx Hypercholesterolemia: Yes Hx Hypertension: Yes - PULMONARY Hx Asthma: Yes Hx Chronic Obstructive Pulmonary Disease (COPD): Yes - NEUROLOGICAL Hx Neurological Disorder: No - HEENT Hx HEENT Problems: No - RENAL Hx Chronic Kidney Disease: Yes - ENDOCRINE/METABOLIC Hx Hypothyroidism: Yes - HEMATOLOGICAL/ONCOLOGICAL Hx Anemia: Yes Hx Human Immunodeficiency Virus (HIV): No - INTEGUMENTARY Hx Dermatological Problems: No - MUSCULOSKELETAL/RHEUMATOLOGICAL Hx Falls: Yes - GASTROINTESTINAL Hx Gastrointestinal Disorders: No - GENITOURINARY/GYNECOLOGICAL Hx Prostate Problems: Yes - PSYCHIATRIC Hx Psychophysiologic Disorder: No Hx Substance Use: No - SURGICAL HISTORY Hx Coronary Artery Bypass Graft: Yes - ANESTHESIA Hx Anesthesia: Yes Hx Anesthesia Reactions: No Hx Malignant Hyperthermia: No Meds Allergies/Adverse Reactions: Allergies Allergy/AdvReac Type Severity Reaction Status Date / Time No Known Allergies Allergy Verified 12/26/15 12:50 - Medications Medications: Current Medications Acetaminophen (Tylenol 325mg Tab) 650 mg PO Q6 PRN PRN Reason: Pain, moderate (4-7) Last Admin: 03/24/17 17:11 Dose: 650 mg Allopurinol (Zyloprim) 100 mg PO DAILY [facility] Last Admin: 03/25/17 08:46 Dose: 100 mg Amlodipine Besylate (Norvasc) 5 mg PO DAILY [facility] Last Admin: 03/25/17 10:00 Dose: 5 mg Aspirin (Aspirin Chewable) 81 mg PO DAILY [facility] Last Admin: 03/25/17 08:46 Dose: 81 mg Atorvastatin Calcium (Lipitor) 20 mg PO HS [facility] Last Admin: 03/24/17 21:18 Dose: 20 mg Calcitriol (Rocaltrol) 0.25 mcg PO DAILY [facility] Last Admin: 03/25/17 08:46 Dose: 0.25 mcg Cholecalciferol (Vitamin D) 1,000 iu PO DAILY [facility] Last Admin: 03/25/17 08:46 Dose: 1,000 iu Citalopram Hydrobromide (Celexa) 60 mg PO DAILY [facility] Enoxaparin Sodium (Lovenox) 30 mg SC DAILY [facility] PRN Reason: Protocol Last Admin: 03/25/17 08:43 Dose: 30 mg Finasteride (Proscar) 5 mg PO DAILY [facility] Last Admin: 03/25/17 08:46 Dose: 5 mg Fluconazole (Diflucan) 200 mg PO DAILY [facility] Last Admin: 03/25/17 08:46 Dose: 200 mg Gabapentin (Neurontin) 300 mg PO BID [facility] Last Admin: 03/25/17 17:30 Dose: 300 mg Isosorbide Mononitrate (Imdur) 60 mg PO DAILY [facility] Last Admin: 03/25/17 08:44 Dose: 60 mg Levothyroxine Sodium (Synthroid) 88 mcg PO DAILY@0630 [facility] Last Admin: 03/25/17 06:15 Dose: 88 mcg Lisinopril (Zestril) 20 mg PO DAILY [facility] Last Admin: 03/25/17 08:45 Dose: Not Given Metoprolol Tartrate (Lopressor) 50 mg PO Q12 [facility] Last Admin: 03/25/17 10:00 Dose: Not Given Pantoprazole Sodium (Protonix Ec Tab) 40 mg PO DAILY [facility] Last Admin: 03/25/17 08:46 Dose: 40 mg Terazosin HCl (Hytrin) 10 mg PO HS [facility] Last Admin: 03/24/17 21:18 Dose: 10 mg Zolpidem Tartrate (Ambien) 5 mg PO HS PRN PRN Reason: Insomnia Last Admin: 03/24/17 22:03 Dose: 5 mg Results - Vital Signs Recent Vital Signs: Last Vital Signs Temp 98 F 03/25/17 16:44 Pulse 58 L 03/25/17 16:44 Resp 18 03/25/17 16:44 BP 151/68 H 03/25/17 16:44 Pulse Ox 95 03/25/17 16:44 - Labs Result Diagrams: 03/24/17 05:25 03/25/17 09:40 Labs: Laboratory Results - last 24 hr 03/24/17 03/25/17 20:49 09:40 Sodium 137 Potassium 3.5 L Chloride 103 Carbon Dioxide 24 Anion Gap 14 BUN 53 H Creatinine 2.6 H Est GFR ( Amer) 29 Est GFR (Non-Af Amer) 24 Random Glucose 144 H Calcium 9.1 Troponin I 0.0160
[2017-03-26] MEDS: Potassium Chloride 20 MEQ in Sodium Chloride 0.45% 1,000 ML IV SCH ×2 (01:30→14:00)
[2017-03-26] MEDS: Levothyroxine 88 MCG TAB PO SCH (06:10)
[2017-03-26] MEDS: Pantoprazole 40 mg EC Tab PO SCH (08:16)
[2017-03-26] MEDS: Enoxaparin 30 mg Syringe SC SCH (08:19)
[2017-03-26 09:01] LABS: URINE BILIRUBIN NEGATIVE (NEGATIVE); URINE BLOOD NEGATIVE (NEGATIVE); URINE CLARITY CLEAR (Clear); URINE COLOR STRAW (YELLOW); URINE GLUCOSE (UA) NEG (Normal); URINE LEUKOCYTE ESTERASE NEG Leu/uL (Negative); URINE NITRATE NEGATIVE (NEGATIVE); URINE PROTEIN 30 mg/dL (NEGATIVE); URINE UROBILINOGEN 0.2-1.0 mg/dL (0.2-1.0)
[2017-03-26 09:06] LABS: ALB/GLOB RATIO 1.2 (1.0-2.1); ALBUMIN 3.6 g/dL (3.5-5.0); CALCIUM 9.1 mg/dL (8.4-10.2)
--- NOTE | 2017-03-26 10:14 | PQF CHF ---
This form is a permanent part of the medical record 03/26/17 Dr. Jennifer Perkins, H&P with documentation of a history of CHF. Would you please specify the type and acuity of heart failure. ECHO: EF 50%,There is a small loculated anterior pericardial effusion. There is borderline to mild concentric left ventricular hypertrophy. Left ventricle is borderline. Apical hypokinesis Transmitral Doppler flow pattern is Grade I- abnormal relaxation pattern. Apical echoes consistent with trabeculae are noted. Cannot rule out associated thrombi. There is mild to moderate aortic regurgitation. ProBNP 1320. Medication includes: Zestril, Lopressor, Imdur, HCTZ Clarification of your documentation is requested to better reflect the severity of illness and intensity of treatment of your patient. Indicators present [x] Diagnosis of CHF and/or history of CHF [x] BNP > 200 [] Imaging Finding of Pulmonary Edema /Pleural Effusions [] Fluid/Volume Overload [] Pitting edema [x] Ejection Fraction < 40% (Indicative of Systolic Heart Failure) [] Ejection Fraction > 40% (Indicative of Diastolic Heart Failure) [] Dyspnea / Orthopenea / Paroxysmal Nocturnal Dyspnea [] Other: Location in the medical record that reflects the above clinical findings: [] Treatment Provided: [x] PHYSICIAN'S RESPONSE Based on your medical judgment of the clinical indicators outlined above, are you treating this patient for a known or suspected: [] Acute CHF [] Systolic [] Diastolic [] Combined [] Chronic CHF [] Systolic [] Diastolic [] Combined [] Acute on Chronic CHF []Systolic [] Diastolic [] Combined [] CHF due hypertension [] Acute systolic []Chronic systolic [] Acute/ chronic systolic [] Other, please indicate: [] [] If Unable to Determine, please check the box, sign and date. Present On Admission (POA) Indicator: [] Present at the time of admission [] Not present at the time of admission [] Clinically Undetermined In responding to this query, please exercise your independent professional judgment. The fact that a question is asked does not imply that any particular answer is desired or expected. Thank you for your clarification on this documentation. If you have any questions please call:ext [phone] * Thank you, Cheryl Bond RN, CDMP [facility]
--- NOTE | 2017-03-26 10:38 | CON ---
The patient is located in room 401, bed #1. REQUESTED BY: Riley Kern MD. REASON FOR RENAL CONSULTATION: Increased BUN and creatinine and pancytopenia and for further evaluation. HISTORY OF PRESENT ILLNESS: Mr. Romeo is now about 76-year-old, very pleasant male with a past medical history significant for a myelodysplastic syndrome, coronary artery disease, status post CABG about 15 years ago and CHF, hypothyroidism, COPD, was admitted with a chief complaint of syncope. As per the patient, he went to a beach and he walked for a few minutes and then he came back to his car and he felt very weak and tired and he fell on the floor and slowly he crawled up and stood up holding the car. Denies any chest pain. The patient has complaints of slight dizziness at that time. Denies any chest pain. Denies any palpitations. Denies any nausea, vomiting or diarrhea. Denies any abdominal pain. Denies any dysuria or frequency. Denies any swelling of the legs. PAST MEDICAL HISTORY: Significant for myelodysplastic syndrome, coronary artery disease, hypertension, CHF, hypothyroidism, COPD and questionable preleukemia on chemotherapy and also on transfusions every 2 weeks for the last 6 months in [facility]. PAST SURGICAL HISTORY: CABG about 15 years ago. FAMILY HISTORY: Not significant. He lives alone with his niece. SOCIAL HISTORY: No smoking. No alcohol. No drugs. PERSONAL HISTORY: He is single. He lives with his niece. CURRENT MEDICATIONS: Include as follows: Ambien 5 mg at bedtime, aspirin 81 mg daily, Celexa 60 mg p.o. daily, Diflucan 200 mg p.o. daily, Hytrin 10 mg at bedtime, Imdur 60 mg p.o. daily, Lipitor 20 mg p.o. at bedtime, metoprolol 15 mg p.o. q.12 hours, Lovenox 40 mg subcutaneous daily, Neurontin 300 mg p.o. b.i.d., amlodipine 5 mg daily, Proscar 5 mg p.o. daily, Protonix 40 mg p.o. daily, Rocaltrol 0.25 mcg p.o. daily, levothyroxine 88 mcg p.o. daily, Tylenol, vitamin D 1000 units p.o. daily, Lisinopril 20 mg p.o. daily and allopurinol 100 mg p.o. daily. REVIEW OF SYSTEMS: Significant for syncope. Denies any loss of consciousness and weakness and tired. All other review of systems are reviewed and negative. PHYSICAL EXAMINATION: VITAL SIGNS: Blood pressure 148/79, pulse 61, respirations 18, temperature 98.2 and O2 saturation 98%. Height 5 feet 7 inches and weight is 170 pounds. GENERAL: Mr. Romeo is a 76-year-old elderly male, very pleasant, well built, well nourished, not in distress. HEENT: Pupils are normal, reactive to light and accommodation. Conjunctivae are slightly pale. Sclerae anicteric. Tongue is moist. Trachea is midline. LUNGS: Symmetrical on both sides. Bilateral breath sounds present. Clear on auscultation. CARDIOVASCULAR: [place] at the fifth intercostal space midclavicular line. S1 and S2 audible. No murmur or gallop. ABDOMEN: Normal in appearance, soft and tympanic. No guarding. No rigidity. No hepatosplenomegaly. No abdominal bruit. The patient had a midsternal scar present from the previous CABG. EXTREMITIES: No cyanosis. No clubbing. No edema. 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 Nonfocal on examination. Cranial nerves II through XII grossly intact. Sensory motor system is within normal limits. LABORATORY DATA: His current laboratory data include as follows. As of 03/23/2017; WBC 3.7, hemoglobin 9, hematocrit is 26.7 and platelet is 89. PT 11.2, PTT 28.5. Sodium 137, potassium 4.2, chloride 103, CO2 22, BUN 70, creatinine 3.5, glucose 118, hemoglobin A1c is 6.3, and calcium 9. Total bilirubin 0.3, AST 26, ALT 27, alkaline phosphatase 47, troponin 0.015, 0.024, and 0.016 and pro-BNP 1320. As of 03/24/2017; BUN and creatinine 64/3 and cholesterol 116, triglyceride 142, LDL 51, HDL 25 and TSH is 3.79. As of 03/25/2017, sodium 137, potassium 3.5, chloride 103, CO2 24, BUN 53, creatinine 2.6, glucose 144, and calcium 9.1. As of 03/25/2017, CT of the head. Impression: Nonspecific white matter changes, acute infarction may be CT occult within first 24 hours. If a focal deficit persists, consider a followup CT or MRI for further evaluation. ASSESSMENT: In summary, Mr. Romeo is a 76-year-old elderly male with a history of hypertension, coronary artery disease, coronary artery bypass grafting, congestive heart failure, hypothyroidism, chronic obstructive pulmonary disease, myelodysplastic syndrome, questionable preleukemia on chemotherapy and blood transfusion every 2 weeks alternating with the chemotherapy for the last 6 months, was admitted with weakness and syncope and increased BUN and creatinine. 1. Renal failure, mostly likely [id number] kidney disease, rule out dehydration. 2. Pancytopenia, mostly likely secondary to myelodysplastic syndrome, rule out hypertensive nephrosclerosis. PLAN: We will check hepatitis B and C serology, C3, C4, ultrasound of the kidneys, and urinalysis. Also, we will start IV fluids, half normal saline at 70 mL per hour, gentle hydration and repeat BMP in a.m. We will follow with you. Thank you for allowing me to participate in your patient's care and follow up with Hematology also. Huber Woods MD
--- NOTE | 2017-03-26 13:45 | US ---
PROCEDURE: Duplex ultrasound of the carotid and vertebral arteries. HISTORY: syncope. COMPARISON: None available. TECHNIQUE: Grayscale and duplex Doppler evaluation of the cervical carotid and vertebral arteries were performed. The common carotid, carotid bifurcations and cervical ICA and proximal ECA were evaluated. The vertebral arteries were evaluated for gross patency and direction. FINDINGS: RIGHT CAROTID ARTERIES: Common Carotid Artery: MInimal atherosclerosis. Maximal flow velocity of 87.3 cm/s. Carotid Bifurcation: MInimal atherosclerosis. Internal Carotid Artery:Normal. Maximal flow velocity of 100.7 cm/s. External Carotid Artery (proximal branches): Normal. Maximal flow velocity of 95.1 cm/s. ICA/CCA Ratio: 1.2 LEFT CAROTID ARTERIES: Common Carotid Artery: MInimal atherosclerosis. Maximal flow velocity of 111.6 cm/s. Carotid Bifurcation: MInimal atherosclerosis. Internal Carotid Artery:Normal. Maximal flow velocity of 99.7 cm/s. External Carotid Artery (proximal branches): Normal. Maximal flow velocity of 139.0 cm/s. ICA/CCA Ratio: 0.9 VERTEBRAL ARTERIES: Right Vertebral Artery: Patent. Antegrade flow. Left Vertebral Artery: Patent. Antegrade flow. OTHER FINDINGS: None. IMPRESSION: 1. No significant stenosis of the bilateral common or internal carotid arteries in the neck 2. Minimal atherosclerosis seen in the bilateral common carotid arteries of the bilateral carotid bulb regions in short segments.
--- NOTE | 2017-03-26 14:11 | PQF GENQUE ---
This form is a permanent part of the medical record 03/26/17 Dr. Kern, Admitted with near syncope. Please clarify the possible etiology of syncope if known/ unknown after workup EKG: Sinus bradycardia cannot rule out inferior infarct age undetermined, T wave abnormality consider lateral ischemia. HR 56-68. Troponins negative. Cardiology consult pending. CT Head: Non specific white matter changes. Neurology Impression: CT of the head showed no intracranial abnormality. He had a slightly lower blood pressure when he came in initially. He had an elevated BUN and creatinine levels as well mild dehydration. At this time, his syncopal event was likely secondary to vasovagal type nature, secondary from mild dehydration and possible transient cerebral hypoperfusion to the brain. BUN 70->49, creatinine 3.0->2.2, GFR 17->29. Renal impression: ROSE on CKD Clarification of your documentation is requested to better reflect the severity of illness and intensity of treatment of your patient. PHYSICIAN'S RESPONSE Based on your medical judgment of the clinical indicators outlined above please clarify the following: [] Practitioner response [] If unable to determine, please check the box, sign and date. Present On Admission (POA) Indicator: [] Present at the time of admission [] Not present at the time of admission [] Clinically Undetermined In responding to this query, please exercise your independent professional judgment. The fact that a question is asked does not imply that any particular answer is desired or expected. Thank you for your clarification on this documentation. If you have any questions please call:ext [phone] * Thank you, Cheryl Bond RN CDMP [facility]
[2017-03-26 16:05] VITALS: BP 126/61; PULSE 71; RESP 16; TEMP 98.3; O2SAT 97
--- NOTE | 2017-03-26 17:00 | CP.PCM.PN ---
Subjective - Date & Time of Evaluation Date of Evaluation: 03/26/17 Time of Evaluation: 16:59 - Subjective Subjective: pt seen and examined, follow up consult is dictated #[id number] check u/s kidneys for size Objective - Vital Signs/Intake and Output Vital Signs (last 24 hours): Temp Pulse Resp BP Pulse Ox 98.3 F 71 16 126/61 97 03/26/17 16:04 03/26/17 16:04 03/26/17 16:04 03/26/17 16:04 03/26/17 16:04 Intake and Output: 03/26/17 03/26/17 06:59 18:59 Intake Total 760 Output Total 1500 Balance -740 - Medications Medications: Current Medications Acetaminophen (Tylenol 325mg Tab) 650 mg PO Q6 PRN PRN Reason: Pain, moderate (4-7) Last Admin: 03/24/17 17:11 Dose: 650 mg Allopurinol (Zyloprim) 100 mg PO DAILY [facility] Last Admin: 03/26/17 08:16 Dose: 100 mg Amlodipine Besylate (Norvasc) 5 mg PO DAILY [facility] Last Admin: 03/26/17 08:18 Dose: 5 mg Aspirin (Aspirin Chewable) 81 mg PO DAILY [facility] Last Admin: 03/26/17 08:17 Dose: 81 mg Atorvastatin Calcium (Lipitor) 20 mg PO HS [facility] Last Admin: 03/25/17 21:48 Dose: 20 mg Calcitriol (Rocaltrol) 0.25 mcg PO DAILY [facility] Last Admin: 03/26/17 08:16 Dose: 0.25 mcg Cholecalciferol (Vitamin D) 1,000 iu PO DAILY [facility] Last Admin: 03/26/17 08:16 Dose: 1,000 iu Citalopram Hydrobromide (Celexa) 60 mg PO DAILY [facility] Last Admin: 03/26/17 16:53 Dose: 60 mg Enoxaparin Sodium (Lovenox) 30 mg SC DAILY [facility] PRN Reason: Protocol Last Admin: 03/26/17 08:19 Dose: 30 mg Finasteride (Proscar) 5 mg PO DAILY [facility] Last Admin: 03/26/17 08:16 Dose: 5 mg Fluconazole (Diflucan) 200 mg PO DAILY [facility] Last Admin: 03/26/17 08:17 Dose: 200 mg Gabapentin (Neurontin) 300 mg PO BID [facility] Last Admin: 03/26/17 16:54 Dose: 300 mg Potassium Chloride 20 meq/ (Sodium Chloride) 1,010 mls @ 70 mls/hr IV .[id number] [facility] Stop: 03/26/17 23:25 Last Admin: 03/26/17 14:00 Dose: 70 mls/hr Isosorbide Mononitrate (Imdur) 60 mg PO DAILY [facility] Last Admin: 03/26/17 08:17 Dose: 60 mg Levothyroxine Sodium (Synthroid) 88 mcg PO DAILY@0630 [facility] Last Admin: 03/26/17 06:10 Dose: 88 mcg Lisinopril (Zestril) 20 mg PO DAILY [facility] Last Admin: 03/26/17 08:17 Dose: 20 mg Metoprolol Tartrate (Lopressor) 50 mg PO Q12 [facility] Last Admin: 03/26/17 08:22 Dose: 50 mg Pantoprazole Sodium (Protonix Ec Tab) 40 mg PO DAILY [facility] Last Admin: 03/26/17 08:16 Dose: 40 mg Terazosin HCl (Hytrin) 10 mg PO HS [facility] Last Admin: 03/25/17 21:48 Dose: 10 mg Zolpidem Tartrate (Ambien) 5 mg PO HS PRN PRN Reason: Insomnia Last Admin: 03/25/17 23:36 Dose: 5 mg - Labs Labs: 03/26/17 08:35 PT 11.2 Seconds (9.8-13.1) 03/23/17 19:55 INR 1.0 (0.9-1.2) 03/23/17 19:55 APTT 28.5 Seconds (25.6-37.1) 03/23/17 19:55
[2017-03-26] MEDS ORDERED: Sodium Chloride 0.45% 1,000 ML IV SCH (17:15)
[2017-03-26 19:09] LABS: U CREAT 24HOUR URINE 814.7 mg/24hr (800-2800); URINE CREATININE 36.7 mg/dl
--- NOTE | 2017-03-27 02:22 | PN ---
DATE: 03/26/2017 LOCATION: The patient is located in telemetry room 401, bed 1. REQUESTED BY: Dr. Riley Kern. REASON FOR RENAL FOLLOWUP: Acute renal failure, chronic kidney disease. SUBJECTIVE: Mr. Romeo is a 76-year-old elderly male with past medical history significant for longstanding hypertension, coronary artery disease, status post CABG, myelodysplastic syndrome, chronic kidney disease, who was admitted with a syncopal episode and the patient was found to have increased BUN and creatinine. Renal consult was requested initially for further evaluation. The patient was started on IV fluids with 20 mEq KCl and D5W at 70 mL per hour. Serum potassium improved to 4.0 this morning and also the serum creatinine slowly improved to 2.2, last serum creatinine. The patient is feeling better. Denies any headache or dizziness. Denies any chest pain or palpitation. Denies any fever or cough. No abdominal pain. No nausea, vomiting or diarrhea. PHYSICAL EXAMINATION: GENERAL: Mr. Romeo is a 76-year-old elderly male, moderately built, moderately nourished, not in acute distress. VITAL SIGNS: Blood pressure 126/61, pulse 71, respirations 16, temperature 98.3, saturations 97%. Height 5 feet 7 inches and weight is 170 pounds. HEENT: Pupils normal, reactive to light and accommodation. Conjunctivae pink. Sclerae anicteric. Tongue is moist. Trachea is midline. CARDIOVASCULAR: [place] at the fifth intercostal space midclavicular. S1 and S2 audible. No murmur, no gallop. The patient has midsternal scar present from the previous CABG. LUNGS: Symmetric on both sides. Bilateral breath sounds present. Clear on auscultation. ABDOMEN: Normal in appearance. Soft. Tympanic. No guarding, *------*, no hepatosplenomegaly. 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 Nonfocal on examination. Cranial nerves II through XII grossly intact. Sensory and motor, essentially within normal limits. EXTREMITIES: No cyanosis, no clubbing, no edema. CURRENT MEDICATIONS: Include as follows: 1. Ambien 5 mg at bedtime. 2. Aspirin 81 mg daily. 3. Celexa 60 mg p.o. daily. 4. Diflucan 200 mg p.o. daily. 5. Hytrin 10 mg p.o. at bedtime. 6. *------* 60 mg p.o. daily. 7. Lipitor 20 mg daily at bedtime. 8. Lopressor 50 mg p.o. q.12 hours. 9. Lovenox 30 mg subcu daily. 10. Neurontin 300 mg p.o. b.i.d. 11. Amlodipine 5 mg daily. 12. Proscar 5 mg p.o. daily. 13. Protonix 40 mg p.o. daily. 14. Calcitrol 0.25 mcg p.o. daily. 15. Synthroid 88 mcg p.o. daily. 16. Tylenol. 17. Vitamin D 1000 units p.o. daily. 18. Zestril 20 mg p.o. daily. 19. Allopurinol 100 mg p.o. daily. LABORATORY DATA: Include as follows: As of 03/26/2017; sodium 136, potassium is 4, chloride 105, CO2 24, BUN 49, and creatinine 2.2. His creatinine on admission on 03/23/2017 was 3.5. On 03/24/2017, creatinine was 3.0. On 03/25/2017, creatinine was 2.6 and 03/26/2017, today, the creatinine is 2.2. The other reports, hepatitis B surface antigen negative. Surface antibody negative. Hep C antibodies negative. Urinalysis, straw color, clear as of 03/25/2017, pH 7, specific gravity 1.010, protein 30, glucose negative, ketones negative, blood negative, nitrites negative, bilirubin negative, urobilinogen is 0.2 to 1.0, leukocyte esterase negative, rbc 1, wbc less than 1, and 24-hour urine collection volume is 2220 and creatinine clearance and protein are pending. PTH intact level is 59. ASSESSMENT AND PLAN: In summary, Mr. Romeo is a 76-year-old elderly male with history of hypertension, hyperlipidemia, hypothyroidism, questionable benign prostatic hypertrophy, and myelodysplastic syndrome, on chemotherapy every 2 weeks alternating with blood transfusion for 6 months in [facility], who was admitted with weakness and a syncopal episode and a low H and H and pancytopenia. Started on IV fluids with elevated serum creatinine on admission 3.5. 1. Acute renal failure on chronic kidney disease versus acute kidney injury. Renal function improving nicely with gentle hydration. 2. Pancytopenia most likely secondary to myelodysplastic syndrome. 3. Hypertension. 4. Coronary artery disease. Continue his current blood pressure medicines, Hytrin, amlodipine, Zestril and Lopressor. Continue IV fluids, half-normal saline at 70 mL per hour and check ultrasound of the kidneys for size. We will follow with you. Thank you for allowing me to participate in your patient's care. Huber Woods MD
[2017-03-27 07:22] LABS: CREATININE, 24 HOUR URINE 1.02 g/24 h (0.63-2.50)
--- NOTE | 2017-03-27 14:00 | CP.PCM.DIS ---
Provider - Provider Date of Admission: 03/24/17 19:49 Attending physician: Riley Kern MD Time Spent in preparation of Discharge (in minutes): 35 Diagnosis - Discharge Diagnosis (1) Near syncope Status: Resolved Hospital Course - Lab Results Lab Results: Most Recent Lab Values WBC 4.3 K/uL (4.8-10.8) L 03/24/17 05:25 RBC 2.56 Mil/uL (4.40-5.90) L 03/24/17 05:25 Hgb 8.9 g/dL (12.0-18.0) L 03/24/17 05:25 Hct 26.6 % (35.0-51.0) L 03/24/17 05:25 MCV 103.8 fl (80.0-94.0) H 03/24/17 05:25 MCH 34.6 pg (27.0-31.0) H 03/24/17 05:25 MCHC 33.4 g/dL (33.0-37.0) 03/24/17 05:25 RDW 17.9 % (11.5-14.5) H 03/24/17 05:25 Plt Count 80 K/uL (130-400) L 03/24/17 05:25 MPV 11.0 fl (7.2-11.7) 03/23/17 19:55 Neut % (Auto) 44.6 % (50.0-75.0) L 03/23/17 19:55 Lymph % (Auto) 39.6 % (20.0-40.0) 03/23/17 19:55 [place] % (Auto) 12.2 % (0.0-10.0) H 03/23/17 19:55 Eos % (Auto) 3.3 % (0.0-4.0) 03/23/17 19:55 Baso % (Auto) 0.3 % (0.0-2.0) 03/23/17 19:55 Neut # 1.7 K/uL (1.8-7.0) L 03/23/17 19:55 Lymph # 1.5 K/uL (1.0-4.3) 03/23/17 19:55 [place] # 0.5 K/uL (0.0-0.8) 03/23/17 19:55 Eos # 0.1 K/uL (0.0-0.7) 03/23/17 19:55 Baso # 0.0 K/uL (0.0-0.2) 03/23/17 19:55 PT 11.2 Seconds (9.8-13.1) 03/23/17 19:55 INR 1.0 (0.9-1.2) 03/23/17 19:55 APTT 28.5 Seconds (25.6-37.1) 03/23/17 19:55 Sodium 136 mmol/l (132-148) 03/26/17 08:35 Potassium 4.0 MMOL/L (3.6-5.0) 03/26/17 08:35 Chloride 105 mmol/L (98-107) 03/26/17 08:35 Carbon Dioxide 24 mmol/L (22-30) 03/26/17 08:35 Anion Gap 12 (10-20) 03/26/17 08:35 BUN 49 mg/dl (9-20) H 03/26/17 08:35 Creatinine 2.2 mg/dL (0.8-1.5) H 03/26/17 08:35 Est GFR ( Amer) 36 03/26/17 08:35 Est GFR (Non-Af Amer) 29 03/26/17 08:35 POC Glucose (mg/dL) 118 mg/dL (65-110) H 03/23/17 19:18 Random Glucose 89 mg/dL (75-110) 03/26/17 08:35 Hemoglobin A1c 6.3 % (4.2-6.5) 03/24/17 05:25 Calcium 9.1 mg/dL (8.4-10.2) 03/26/17 08:35 Total Bilirubin 0.2 mg/dl (0.2-1.3) 03/26/17 08:35 AST 21 U/L (17-59) 03/26/17 08:35 ALT 32 U/L (21-72) 03/26/17 08:35 Alkaline Phosphatase 47 U/L (38-126) 03/26/17 08:35 Troponin I 0.0160 ng/mL (0.00-0.120) 03/24/17 20:49 NT-Pro-B Natriuret Pep 1320 pg/ml (0-900) H 03/23/17 19:55 Total Protein 6.6 G/DL (6.3-8.2) 03/26/17 08:35 Albumin 3.6 g/dL (3.5-5.0) 03/26/17 08:35 Globulin 3.0 gm/dL (2.2-3.9) 03/26/17 08:35 Albumin/Globulin Ratio 1.2 (1.0-2.1) 03/26/17 08:35 Triglycerides 142 mg/DL (0-149) 03/24/17 05:25 Cholesterol 116 mg/dL (0-199) 03/24/17 05:25 LDL Cholesterol Direct 51 mg/dL (0-129) 03/24/17 05:25 HDL Cholesterol 25 MG/DL (30-70) L 03/24/17 05:25 TSH 3rd Generation 3.79 mIU/ML (0.46-4.68) 03/24/17 05:25 PTH Intact Whole Molec 59 pg/mL (14-64) 03/25/17 20:30 Urine Color Straw (YELLOW) 03/25/17 10:35 Urine Clarity Clear (Clear) 03/25/17 10:35 Urine pH 7.0 (5.0-8.0) 03/25/17 10:35 Ur Specific [place] 1.010 (1.003-1.030) 03/25/17 10:35 Urine Protein 30 mg/dL (NEGATIVE) 03/25/17 10:35 Urine Glucose (UA) Neg mg/dL (Normal) 03/25/17 10:35 Urine Ketones Negative mg/dL (NEGATIVE) 03/25/17 10:35 Urine Blood Negative (NEGATIVE) 03/25/17 10:35 Urine Nitrate Negative (NEGATIVE) 03/25/17 10:35 Urine Bilirubin Negative (NEGATIVE) 03/25/17 10:35 Urine Urobilinogen 0.2-1.0 mg/dL (0.2-1.0) 03/25/17 10:35 Ur Leukocyte Esterase Neg [place]/uL (Negative) 03/25/17 10:35 Urine RBC (Auto) 1 /hpf (0-3) 03/25/17 10:35 Urine Microscopic WBC < 1 /hpf (0-5) 03/25/17 10:35 Urine Collection Time 24 HRS 03/26/17 18:46 Urine Total Volume 2220 mL 03/26/17 18:46 Urine Creatinine 0.46 g/L 03/25/17 18:46 Ur Creatinine 24 Hour 1.02 g/24 h (0.63-2.50) 03/25/17 18:46 Ur Total Protein 24 Hr 895 mg/24 h (<150) H 03/25/17 18:46 Protein/Creat Ratio 24h 874 mg/g creat (</=84) H 03/25/17 18:46 Urine Total Protein 403 mg/L (50-250) H 03/25/17 18:46 Hep Bs Antigen Negative (NEGATIVE) 03/25/17 18:30 Hep Bs Antibody Negative (NEGATIVE) 03/25/17 18:30 Hepatitis C Antibody Negative (NEGATIVE) 03/25/17 18:30 - Hospital Course Hospital Course: 76 year old male with a PMHx remarkable for myelodysplastic syndrome, CAD, HTN , CHF, hypothyroidism, and COPD, who presented to the emergency department accompanied by his daughter for an evaluation after a near syncopal event around 1pm when he was returning from [place]. Pt reports after a recent stay at [facility] he was in his general state of health, but as he was walking back to his car he reports his legs weakened and "gave out". He ended up falling over onto his car and leaned against it till he regained strength. Denies LOC. The leg weakness is associated with lightheadedness, nausea and mild shortness of breath. Denies fever/chills, headaches, CP/Palpitations, V/D/C , urinary symptoms, numbness/tingling. HOSPITAL COURSE: (1) Near syncope pt was rehydrated neurology consult with Dr. Barboza: cleared pt from a Neuro standpoint cardiology consult with Dr. Perkins admitted to [facility] for monitoring: uneventful stay w/o arrhthymias noted (2) HTN (hypertension) changed Metoprolol 200mg to 50mg BID D/Blake HCTZ Added Amlodipine 5mg QD (3) Chronic kidney disease (CKD) GFR noted to be [address] Rogers appreciated After an uneventful hospital stay, the pt was discharged in stable condition with follow up orders with Dr. Kern and Dr. Jonnalagada. Discharge Exam - Head Exam Head Exam: ATRAUMATIC, NORMOCEPHALIC - Eye Exam Eye Exam: EOMI Pupil Exam: PERRL - Respiratory Exam Respiratory Exam: Clear to PA & Lateral, NORMAL BREATHING PATTERN, UNREMARKABLE - Cardiovascular Exam Cardiovascular Exam: REGULAR RHYTHM - GI/Abdominal Exam GI & Abdominal Exam: Normal Bowel Sounds, Unremarkable - Exam Exam: NORMAL INSPECTION - Extremities Exam Extremities exam: normal inspection - Neurological Exam Neurological exam: Alert, CN II-XII Intact, Normal Gait, Oriented x3, Reflexes Normal - Psychiatric Exam Psychiatric exam: Normal Affect, Normal Mood Discharge Plan - Follow Up Plan Condition: STABLE Disposition: HOME/ ROUTINE Instructions: Syncope (DC)
[2017-03-30 15:43] LABS: ALPHA-1 GLOBULIN 4.6 Relative %
== END 2017-03-26 18:28 | disposition home or self-care (01) | DRG 312 ==
LOC: H.ER 18:47 → H.ERHOLD 20:59 → H.TEL 22:37 → OBSVTOIN 03-24 19:49
PROVIDERS: ADMIT Family Medicine; ATTEND Family Medicine
DX: R55 Syncope and collapse (principal); N17.9 Acute kidney failure, unspecified; D61.818 Other pancytopenia; I50.9 Heart failure, unspecified; J44.9 Chronic obstructive pulmonary disease, unspecified; E86.0 Dehydration; I12.9 Hypertensive chronic kidney disease with stage 1 through stage 4 chronic kidney disease, or unspecified chronic kidney disease; D46.9 Myelodysplastic syndrome, unspecified; E03.9 Hypothyroidism, unspecified; N18.9 Chronic kidney disease, unspecified; E78.00 Pure hypercholesterolemia, unspecified; I25.10 Atherosclerotic heart disease of native coronary artery without angina pectoris; E78.5 Hyperlipidemia, unspecified; Z95.1 Presence of aortocoronary bypass graft

== ENCOUNTER 2017-10-25 12:43 | Inpatient (IN) | payer MEDICARE ==
[2017-10-25 12:43] VITALS: BMI 27.8
[2017-10-25] MEDS ORDERED: Albuterol-Ipratrop 3 mg / 0.5 (3 ml) UD IH STA ×2 (13:19→13:29)
[2017-10-25] MEDS ORDERED: Sodium Chloride 0.9% 1,000 ML IV STA (13:19)
--- NOTE | 2017-10-25 13:22 | ED PDOC ---
HPI: SOB/CHF/COPD Time Seen by Provider: 10/25/17 13:01 Chief Complaint (Nursing): Shortness Of Breath History Per: Family Onset/Duration Of Symptoms: Days (2) Current Symptoms Are (Timing): Still Present Current Respiratory Medications: See Home Med List Severity: Moderate Associated Symptoms: Fever Additional Complaint(s): Nonproductive cough assoc with fever and confusion x 2 days. Nausea but no vomiting or diarrhea. Past Medical History Vital Signs: Last Vital Signs Temp 97.6 F 10/25/17 12:51 Pulse 73 10/25/17 13:46 Resp 23 10/25/17 13:46 BP 150/78 10/25/17 13:46 Pulse Ox 100 10/25/17 13:46 - Medical History PMH: Anemia, Asthma, CAD, CHF, COPD, HTN, Hypercholesterolemia, Hyperlipidemia, Hypothyroidism, Chronic Kidney Disease Denies: HIV Other PMH: MDS - Surgical History Surgical History: CABG - Family History Family History: States: Unknown Family Hx - Home Medications Home Medications: Ambulatory Orders Medication Instructions Recorded Allopurinol [Zyloprim] 100 mg PO DAILY 12/26/15 Calcitriol [Rocaltrol] 0.25 mcg PO DAILY 12/26/15 Gabapentin [Neurontin] 300 mg PO BID 12/26/15 Metoprolol Succinate [Toprol XL] 200 mg PO DAILY 12/26/15 Omeprazole [Prilosec] 20 mg PO BID 12/26/15 Terazosin [Hytrin] 10 mg PO HS 12/26/15 Citalopram Hydrobromide 60 mg PO DAILY 01/15/16 [Citalopram HBr] Aspirin [Aspirin Chewable] 81 mg PO DAILY 03/23/17 Cholecalciferol [Vitamin D 1000 IU] 1,000 units PO DAILY 03/23/17 Finasteride [Proscar] 5 mg PO DAILY 03/23/17 Fluconazole [Fluconazole] 200 mg PO DAILY 03/23/17 Hydrochlorothiazide [Microzide] 12.5 mg PO DAILY 03/23/17 Isosorbide Mononitrate ER [Imdur 60 mg PO DAILY 03/23/17 ER] Levothyroxine [Synthroid] 88 mcg PO DAILY 03/23/17 Lisinopril [Zestril] 20 mg PO DAILY 03/23/17 Simvastatin [Simvastatin] 40 mg PO HS 03/23/17 Zolpidem Tartrate [Ambien] 10 mg PO HS 03/23/17 - Allergies Allergies/Adverse Reactions: Allergies Allergy/AdvReac Type Severity Reaction Status Date / Time No Known Allergies Allergy Verified 12/26/15 12:50 Review of Systems ROS Statement: Except As Marked, All Systems Reviewed And Found Negative Constitutional: Positive for: Fever Respiratory: Positive for: Cough Physical Exam - Reviewed Nursing Documentation Reviewed: Yes Vital Signs Reviewed: Yes - Physical Exam Appears: Positive for: Non-toxic, No Acute Distress Head Exam: Positive for: ATRAUMATIC, NORMAL INSPECTION, NORMOCEPHALIC Skin: Positive for: Normal Color, Warm, DRY Eye Exam: Positive for: EOMI, Normal appearance, PERRL ENT: Positive for: Normal ENT Inspection Neck: Positive for: Normal, Painless ROM Cardiovascular/Chest: Positive for: Regular Rate, Rhythm Respiratory: Positive for: Rhonchi, Wheezing. Negative for: Respiratory Distress Gastrointestinal/Abdominal: Positive for: Normal Exam, Bowel Sounds, Soft Back: Positive for: Normal Inspection Extremity: Positive for: Normal ROM Neurologic/Psych: Positive for: Alert, Oriented - Laboratory Results Result Diagrams: 10/25/17 13:35 10/25/17 13:35 - ECG O2 Sat by Pulse Oximetry: 95 Disposition - Clinical Impression Clinical Impression: COPD (chronic obstructive pulmonary disease), Bronchitis - Patient ED Disposition Is Patient to be Admitted: Yes - Disposition Disposition Time: 14:35 Condition: FAIR Forms: [facility] ([place] - Pt Status Changed To: Hospital Disposition Of: Inpatient - Admit Certification Admit to Inpatient:: After my assessment, the patient will require hospitalization for at least two midnights. This is because of the severity of symptoms shown, intensity of services needed, and/or the medical risk in this patient being treated as an outpatient. - POA Present On Arrival: None
[2017-10-25] MEDS ORDERED: Albuterol-Ipratrop 3 mg / 0.5 (3 ml) UD ONE ×2 (13:40→13:49)
[2017-10-25 13:44] LABS: BASO % 0.8 % (0.0-2.0); EOS % 0.3 % (0.0-4.0); HEMOGLOBIN 8.2 g/dL (12.0-18.0); LYMPH # 0.6 K/uL (1.0-4.3); LYMPH % 26.3 % (20.0-40.0); MEAN CELL VOLUME 90.3 fl (80.0-94.0); MEAN CORPUSCULAR HEMOGLOBIN 30.6 pg (27.0-31.0); MEAN CORPUSCULAR HGB CONC 33.8 g/dL (33.0-37.0); MEAN PLATELET VOLUME 11.3 fl (7.2-11.7); MONO # 0.4 K/uL (0.0-0.8); MONO % 18.8 % (0.0-10.0); NEUT # 1.2 K/uL (1.8-7.0); NEUT % 53.8 % (50.0-75.0); NRBC % 0.5 % (0.0-0.0); RBC 2.69 Mil/uL (4.40-5.90); RED CELL DISTRIBUTION WIDTH 14.3 % (11.5-14.5); WHITE BLOOD COUNT 2.3 K/uL (4.8-10.8)
[2017-10-25 13:54] LABS: ALB/GLOB RATIO 0.9 (1.0-2.1); ALBUMIN 3.5 g/dL (3.5-5.0); CALCIUM 8.9 mg/dL (8.4-10.2)
[2017-10-25] MEDS ORDERED: Azithromycin 500 MG in Sodium Chloride 0.9% 250 ML IVPB STA (14:33)
[2017-10-25] MEDS ORDERED: cefTRIAXone (Rocephin) 1 gm Inj ONE (14:44)
--- NOTE | 2017-10-25 15:58 | RAD ---
HISTORY: cough COMPARISON: No prior. FINDINGS: LUNGS: No active pulmonary disease. PLEURA: No significant pleural effusion identified, no pneumothorax apparent. CARDIOVASCULAR: Normal. Atherosclerotic aorta. OSSEOUS STRUCTURES: No significant abnormalities. VISUALIZED UPPER ABDOMEN: Normal. OTHER FINDINGS: Status post CABG. IMPRESSION: No active disease.
[2017-10-25] MEDS ORDERED: methylPREDNISolone 80 MG in Sodium Chloride 0.9% 50 ML IVP SCH (22:00)
[2017-10-26] MEDS ORDERED: Benzocaine/Menthol (Cepacol) Lozenge PO ONE (00:19)
[2017-10-26] MEDS: Albuterol-Ipratrop 3 mg / 0.5 (3 ml) UD INH SCH ×4 (01:17→19:28)
[2017-10-26 06:05] LABS: ALB/GLOB RATIO 0.8 (1.0-2.1); ALBUMIN 3.1 g/dL (3.5-5.0); CALCIUM 8.7 mg/dL (8.4-10.2)
[2017-10-26 06:09] LABS: HEMOGLOBIN 7.6 g/dL (12.0-18.0); MEAN CELL VOLUME 90.7 fl (80.0-94.0); MEAN CORPUSCULAR HEMOGLOBIN 30.1 pg (27.0-31.0); MEAN CORPUSCULAR HGB CONC 33.2 g/dL (33.0-37.0); RBC 2.51 Mil/uL (4.40-5.90); RED CELL DISTRIBUTION WIDTH 14.2 % (11.5-14.5); WHITE BLOOD COUNT 2.7 K/uL (4.8-10.8)
[2017-10-26] MEDS: Pantoprazole 40 mg EC Tab PO SCH (08:42)
[2017-10-26] MEDS: Azithromycin 500 MG in Sodium Chloride 0.9% 250 ML IVPB SCH (12:09)
[2017-10-26] MEDS: Promethazine/Cod 6.25mg-10mg/5ml Syr UD PO PRN (12:11)
[2017-10-26 16:03] LABS: MAGNESIUM 2.2 MG/DL (1.6-2.3)
--- NOTE | 2017-10-26 20:23 | CP.PCM.HP ---
History of Present Illness - History of Present Illness History of Present Illness: This is a77 y/o male admitted for worsening of cough and shortness of breath for the past 2 to 3 days. He has a hx of COPD CAD HTN asthma CKD hypothyroidism and MDS. He has been regularly receiving blood transfusion. Past Patient History - Past Medical History & Family History Past Medical History?: No - Past Social History Smoking Status: Former Smoker - CARDIAC Hx Congestive Heart Failure: Yes Hx Hypercholesterolemia: Yes Hx Hypertension: Yes - PULMONARY Hx Asthma: Yes Hx Chronic Obstructive Pulmonary Disease (COPD): Yes - NEUROLOGICAL Hx Neurological Disorder: No - HEENT Hx HEENT Problems: No - RENAL Hx Chronic Kidney Disease: Yes - ENDOCRINE/METABOLIC Hx Hypothyroidism: Yes - HEMATOLOGICAL/ONCOLOGICAL Hx Anemia: Yes Hx Human Immunodeficiency Virus (HIV): No - INTEGUMENTARY Hx Dermatological Problems: No - MUSCULOSKELETAL/RHEUMATOLOGICAL Hx Falls: Yes - GASTROINTESTINAL Hx Gastrointestinal Disorders: No - GENITOURINARY/GYNECOLOGICAL Hx Prostate Problems: Yes - PSYCHIATRIC Hx Psychophysiologic Disorder: No Hx Substance Use: No - SURGICAL HISTORY Hx Coronary Artery Bypass Graft: Yes - ANESTHESIA Hx Anesthesia: Yes Hx Anesthesia Reactions: No Hx Malignant Hyperthermia: No Meds Allergies/Adverse Reactions: Allergies Allergy/AdvReac Type Severity Reaction Status Date / Time No Known Allergies Allergy Verified 12/26/15 12:50 Results - Vital Signs Recent Vital Signs: Last Vital Signs Temp 97.8 F 10/26/17 19:08 Pulse 80 10/26/17 19:08 Resp 20 10/26/17 19:08 BP 145/74 10/26/17 19:08 Pulse Ox 95 10/26/17 19:08 - Labs Result Diagrams: 10/27/17 05:30 10/27/17 05:30 Labs: Laboratory Results - last 24 hr 10/26/17 10/26/17 10/26/17 04:25 04:25 09:35 WBC 2.7 L RBC 2.51 L Hgb 7.6 L Hct 22.8 L MCV 90.7 MCH 30.1 MCHC 33.2 RDW 14.2 Plt Count 83 L Sodium 137 Potassium 4.2 Chloride 104 Carbon Dioxide 21 L Anion Gap 16 BUN 68 H Creatinine 2.9 H Est GFR ( Amer) 26 Est GFR (Non-Af Amer) 21 Random Glucose 142 H Calcium 8.7 Magnesium 2.2 Total Bilirubin 0.4 AST 26 ALT 22 Alkaline Phosphatase 44 Total Protein 7.1 Albumin 3.1 L Globulin 4.0 H Albumin/Globulin Ratio 0.8 L Blood Type O POSITIVE Antibody Screen Positive Antibody Identification Anti c Antigen Identification c Antigen - NEGATIVE Crossmatch See Detail BBK History Checked Patient has bt
[2017-10-27] MEDS: Albuterol-Ipratrop 3 mg / 0.5 (3 ml) UD INH SCH ×4 (01:05→19:26)
[2017-10-27 05:59] LABS: HEMOGLOBIN 9.1 g/dL (12.0-18.0); MEAN CELL VOLUME 89.1 fl (80.0-94.0); MEAN CORPUSCULAR HEMOGLOBIN 29.8 pg (27.0-31.0); MEAN CORPUSCULAR HGB CONC 33.4 g/dL (33.0-37.0); RBC 3.07 Mil/uL (4.40-5.90); RED CELL DISTRIBUTION WIDTH 14.6 % (11.5-14.5); WHITE BLOOD COUNT 4.8 K/uL (4.8-10.8)
[2017-10-27 06:18] LABS: CALCIUM 8.8 mg/dL (8.4-10.2)
[2017-10-27] MEDS: Pantoprazole 40 mg EC Tab PO SCH (08:51)
[2017-10-27] MEDS: Promethazine/Cod 6.25mg-10mg/5ml Syr UD PO PRN ×2 (08:54→17:03)
[2017-10-27] MEDS: Azithromycin 500 MG in Sodium Chloride 0.9% 250 ML IVPB SCH (08:55)
--- NOTE | 2017-10-27 11:05 | PQF GENQUE ---
Dr. Kern, 1. Is there associated diagnosis to go along with the following clinical labs? 2.If yes: etiology if known? WBC: 2.3->2.7->4.8 RBC:2.69->2.51->3.07 H/H:8.2/24.3->7.6/22.8->9.1/27.[address] :90->83->91 ER; Clinical Impression: COPD (chronic obstructive pulmonary disease), Bronchitis Admission order: Admitting dx.: Exacerbation COPD, Bronihitis DRAFT: H and P: admitted for worsening of cough and shortness of breath for the past 2 - 3 days - CARDIAC Hx Congestive Heart Failure: Yes Hx Hypercholesterolemia: Yes Hx Hypertension: Yes - PULMONARY Hx Asthma: Yes Hx Chronic Obstructive Pulmonary Disease (COPD): Yes - RENAL Hx Chronic Kidney Disease: Yes - ENDOCRINE/METABOLIC Hx Hypothyroidism: Yes - HEMATOLOGICAL/ONCOLOGICAL Hx Anemia: Yes GENITOURINARY/GYNECOLOGICAL Hx Prostate Problems: Yes SURGICAL HISTORY : Hx Coronary Artery Bypass Graft: Yes Multiple meds: see EMR This form is a permanent part of the medical record Clarification of your documentation is requested to better reflect the severity of illness and intensity of treatment of your patient. Indicators present [] Specify: [] [] Specify: [] [] Specify: [] [] Specify: [] Location in the medical record that reflects the above clinical findings: [] Treatment Provided: [] PHYSICIAN'S RESPONSE Based on your medical judgment of the clinical indicators outlined above please clarify the following: [] Practitioner response [] If unable to determine, please check the box, sign and date. Present On Admission (POA) Indicator: [] Present at the time of admission [] Not present at the time of admission [] Clinically Undetermined In responding to this query, please exercise your independent professional judgment. The fact that a question is asked does not imply that any particular answer is desired or expected. Thank you for your clarification on this documentation. If you have any questions please call. * Thank you, Keri Diaz RN ext. #[phone] MTDD
--- NOTE | 2017-10-27 11:10 | PQF GENQUE ---
Dr. Kern, Please clarify the stage of the chronic kidney disease: Stage 1 Stage 2 (mild) Stage 3 (moderate) Stage 4 (severe) Stage 5 Other (please specify) Clinically unable to determine Unknown BUN:67->68->73 Creatinine:2.9->2.9->2.6 Est GFR (Afric Amer/Non-Af Amer):->->29/24 H and P hx. CKD Sodium Chloride 0.9: 1,000 ml IV 100 mls/hr: Discontinued This form is a permanent part of the medical record Clarification of your documentation is requested to better reflect the severity of illness and intensity of treatment of your patient. Indicators present [] Specify: [] [] Specify: [] [] Specify: [] [] Specify: [] Location in the medical record that reflects the above clinical findings: [] Treatment Provided: [] PHYSICIAN'S RESPONSE Based on your medical judgment of the clinical indicators outlined above please clarify the following: [] Practitioner response [] If unable to determine, please check the box, sign and date. Present On Admission (POA) Indicator: [] Present at the time of admission [] Not present at the time of admission [] Clinically Undetermined In responding to this query, please exercise your independent professional judgment. The fact that a question is asked does not imply that any particular answer is desired or expected. Thank you for your clarification on this documentation. If you have any questions please call. * Thank you, Keri Diaz RN ext. #[phone] MTDD
--- NOTE | 2017-10-27 11:13 | CP.PCM.PN ---
Subjective - Date & Time of Evaluation Date of Evaluation: 10/27/17 Time of Evaluation: 10:35 - Subjective Subjective: feeling better today, no new complaints or events overnight. no acute resp distress. S/p blood transfusion. Objective - Vital Signs/Intake and Output Vital Signs (last 24 hours): Temp Pulse Resp BP Pulse Ox 97.7 F 79 20 152/69 H 95 10/27/17 08:00 10/27/17 09:14 10/27/17 08:00 10/27/17 09:14 10/27/17 08:00 - Medications Medications: Current Medications Albuterol/Ipratropium (Duoneb 3 Mg/0.5 Mg (3 Ml) Ud) 3 ml INH RQ6 [facility] Last Admin: 10/27/17 01:05 Dose: 3 ml Allopurinol (Zyloprim) 100 mg PO DAILY [facility] Last Admin: 10/27/17 08:51 Dose: 100 mg Amlodipine Besylate (Norvasc) 5 mg PO [facility] Aspirin (Aspirin Chewable) 81 mg PO DAILY [facility] Last Admin: 10/27/17 08:51 Dose: 81 mg Atorvastatin Calcium (Lipitor) 20 mg PO HS [facility] Last Admin: 10/26/17 21:12 Dose: 20 mg Benzocaine/Menthol (Cepacol Sore Throat) 1 steffanie PO Q2 PRN PRN Reason: Sore Throat Carvedilol (Coreg) 12.5 mg PO BID@0900,2100 [facility] Last Admin: 10/27/17 09:14 Dose: 12.5 mg Finasteride (Proscar) 5 mg PO HS [facility] Last Admin: 10/26/17 21:12 Dose: 5 mg Gabapentin (Neurontin) 300 mg PO BID [facility] Last Admin: 10/27/17 08:52 Dose: 300 mg Ceftriaxone Sodium 1 gm/ (Sodium Chloride) 100 mls @ 100 mls/hr IVPB DAILY [facility] PRN Reason: Protocol Last Admin: 10/27/17 08:50 Dose: 100 mls/hr Azithromycin 500 mg/ Sodium (Chloride) 250 mls @ 250 mls/hr IVPB DAILY [facility] PRN Reason: Protocol Last Admin: 10/27/17 08:55 Dose: 250 mls/hr Isosorbide Mononitrate (Imdur) 120 mg PO [facility] Last Admin: 10/26/17 23:00 Dose: 120 mg Lisinopril (Zestril) 20 mg PO DAILY [facility] Last Admin: 10/27/17 08:50 Dose: 20 mg Methylprednisolone (Solu-Medrol) 60 mg IV Q12 [facility] Pantoprazole Sodium (Protonix Ec Tab) 40 mg PO DAILY [facility] Last Admin: 10/27/17 08:51 Dose: 40 mg Promethazine HCl/Codeine (Phenergan/Codeine Oral Syrup) 10 ml PO Q6 PRN PRN Reason: Cough Last Admin: 10/27/17 08:54 Dose: 10 ml Terazosin HCl (Hytrin) 10 mg PO HS [facility] Last Admin: 10/26/17 21:13 Dose: 10 mg Zolpidem Tartrate (Ambien) 10 mg PO HS [facility] Last Admin: 10/26/17 23:01 Dose: 10 mg - Labs Labs: 10/27/17 05:30 10/27/17 05:30 - Constitutional Appears: Non-toxic, No Acute Distress - Eye Exam Eye Exam: EOMI, PERRL - ENT Exam ENT Exam: Mucous Membranes Moist - Respiratory Exam Respiratory Exam: Decreased Breath Sounds (MIld,improved). absent: Rales, Wheezes - Cardiovascular Exam Cardiovascular Exam: REGULAR RHYTHM, +S1, +S2 - GI/Abdominal Exam GI & Abdominal Exam: Soft, Normal Bowel Sounds. absent: Tenderness - Neurological Exam Neurological Exam: Alert, Awake, Oriented x3 - Psychiatric Exam Psychiatric exam: Normal Affect, Normal Mood - Skin Skin Exam: Normal Color, Warm Assessment and Plan - Assessment and Plan (Free Text) Assessment: 77 y/o M with Hx of COPD, CAD and MDS admitted for COPD exacerbation COPD exacerbation Improved Taper down steroids Duonebs PRN C/W Rocephin IV MDS Anemia and Leukopenia on amidssion Chronic S/P PRBC tranfusion Monitor CAD Chronic, stable Monitor C/W home meds
--- NOTE | 2017-10-27 11:19 | PQF GENQUE ---
Dr. Kern, Please specify the type and acuity of heart failure in your progress notes:if known TYPE: Combined systolic and diastolic Heart failure with reduced ejection fraction and diastolic dysfunction Diastolic HFpEF Systolic HFrEF Left heart failure Right heart failure Right heart failure due to left heart failure High Output failure End stage heart failure Other (please specify) Clinically unable to determine Unknown 2. ACUITY: Acute Chronic Acute on chronic Other (please specify) Clinically unable to determine Unknown ER: Respiratory: Positive for: Cough PE; Respiratory: Positive for: Rhonchi, Wheezing. Negative for: Respiratory Distress Clinical Impression: COPD (chronic obstructive pulmonary disease), Bronchitis H and P: hx. CHF BUN:67->68->73 Creatinine:2.9->2.9->2.6 Est GFR (Afric Amer/Non-Af Amer):->-> CXR: IMPRESSION: No active disease. Sodium Chloride 0.9: 1,000 ml IV 100 mls/hr: discontinued -coreg This form is a permanent part of the medical record Clarification of your documentation is requested to better reflect the severity of illness and intensity of treatment of your patient. Indicators present [] Specify: [] [] Specify: [] [] Specify: [] [] Specify: [] Location in the medical record that reflects the above clinical findings: [] Treatment Provided: [] PHYSICIAN'S RESPONSE Based on your medical judgment of the clinical indicators outlined above please clarify the following: [] Practitioner response [] If unable to determine, please check the box, sign and date. Present On Admission (POA) Indicator: [] Present at the time of admission [] Not present at the time of admission [] Clinically Undetermined In responding to this query, please exercise your independent professional judgment. The fact that a question is asked does not imply that any particular answer is desired or expected. Thank you for your clarification on this documentation. If you have any questions please call. * Thank you, Keri Diaz RN ext. #[phone] MTDD
[2017-10-27] MEDS: Benzocaine/Menthol (Cepacol) Lozenge PO PRN ×2 (11:20→14:31)
[2017-10-28] MEDS: Albuterol-Ipratrop 3 mg / 0.5 (3 ml) UD INH SCH ×4 (01:09→19:01)
[2017-10-28] MEDS: Benzocaine/Menthol (Cepacol) Lozenge PO PRN ×3 (09:09→22:16)
[2017-10-28] MEDS: Pantoprazole 40 mg EC Tab PO SCH (09:09)
[2017-10-28] MEDS: Promethazine/Cod 6.25mg-10mg/5ml Syr UD PO PRN (09:18)
[2017-10-28] MEDS: Azithromycin 500 MG in Sodium Chloride 0.9% 250 ML IVPB SCH (09:19)
--- NOTE | 2017-10-28 11:35 | CP.PCM.PN ---
Subjective - Date & Time of Evaluation Date of Evaluation: 10/28/17 Time of Evaluation: 11:00 - Subjective Subjective: Stable. Tolerating flat decubitus. Mild SOB on exertion. No acute distress. No events overnight. Objective - Vital Signs/Intake and Output Vital Signs (last 24 hours): Temp Pulse Resp BP Pulse Ox 98.1 F 78 18 153/66 H 95 10/28/17 07:55 10/28/17 09:10 10/28/17 07:55 10/28/17 09:10 10/28/17 07:55 - Medications Medications: Current Medications Albuterol/Ipratropium (Duoneb 3 Mg/0.5 Mg (3 Ml) Ud) 3 ml INH RQ6 [facility] Last Admin: 10/28/17 07:28 Dose: 3 ml Allopurinol (Zyloprim) 100 mg PO DAILY [facility] Last Admin: 10/28/17 09:09 Dose: 100 mg Amlodipine Besylate (Norvasc) 5 mg PO HS [facility] Last Admin: 10/27/17 21:35 Dose: 5 mg Aspirin (Aspirin Chewable) 81 mg PO DAILY [facility] Last Admin: 10/28/17 09:10 Dose: 81 mg Atorvastatin Calcium (Lipitor) 20 mg PO HS [facility] Last Admin: 10/27/17 22:30 Dose: 20 mg Benzocaine/Menthol (Cepacol Sore Throat) 1 steffanie PO Q2 PRN PRN Reason: Sore Throat Last Admin: 10/28/17 09:09 Dose: 1 steffanie Carvedilol (Coreg) 12.5 mg PO BID@0900,2100 [facility] Last Admin: 10/28/17 09:08 Dose: 12.5 mg Finasteride (Proscar) 5 mg PO HS [facility] Last Admin: 10/27/17 21:35 Dose: 5 mg Gabapentin (Neurontin) 300 mg PO BID [facility] Last Admin: 10/28/17 09:09 Dose: 300 mg Ceftriaxone Sodium 1 gm/ (Sodium Chloride) 100 mls @ 100 mls/hr IVPB DAILY [facility] PRN Reason: Protocol Last Admin: 10/28/17 09:11 Dose: 100 mls/hr Azithromycin 500 mg/ Sodium (Chloride) 250 mls @ 250 mls/hr IVPB DAILY [facility] PRN Reason: Protocol Last Admin: 10/28/17 09:19 Dose: 250 mls/hr Isosorbide Mononitrate (Imdur) 120 mg PO [facility] Last Admin: 10/27/17 21:36 Dose: 120 mg Lisinopril (Zestril) 20 mg PO DAILY [facility] Last Admin: 10/28/17 09:10 Dose: 20 mg Methylprednisolone (Solu-Medrol) 60 mg IV Q12 [facility] Last Admin: 10/28/17 09:10 Dose: 60 mg Pantoprazole Sodium (Protonix Ec Tab) 40 mg PO DAILY [facility] Last Admin: 10/28/17 09:09 Dose: 40 mg Promethazine HCl/Codeine (Phenergan/Codeine Oral Syrup) 10 ml PO Q6 PRN PRN Reason: Cough Last Admin: 10/28/17 09:18 Dose: 10 ml Terazosin HCl (Hytrin) 10 mg PO [facility] Last Admin: 10/27/17 21:35 Dose: 10 mg Zolpidem Tartrate (Ambien) 10 mg PO [facility] Last Admin: 10/27/17 21:36 Dose: 10 mg - Labs Labs: 10/27/17 05:30 10/27/17 05:30 - Constitutional Appears: Non-toxic, No Acute Distress - Head Exam Head Exam: NORMAL INSPECTION - Eye Exam Eye Exam: EOMI, PERRL - ENT Exam ENT Exam: Mucous Membranes Moist - Respiratory Exam Respiratory Exam: Wheezes (Diffuse. B/L), Respiratory Distress (mild). absent: Rales, Stridor - Cardiovascular Exam Cardiovascular Exam: REGULAR RHYTHM, +S1, +S2. absent: Gallop - GI/Abdominal Exam GI & Abdominal Exam: Soft, Normal Bowel Sounds. absent: Tenderness - Neurological Exam Neurological Exam: Alert, Awake, Oriented x3 - Psychiatric Exam Psychiatric exam: Normal Affect, Normal Mood - Skin Skin Exam: Normal Color, Warm Assessment and Plan - Assessment and Plan (Free Text) Assessment: 77 y/o M with Hx of COPD, CAD and MDS admitted for COPD exacerbation COPD exacerbation Still wheezing diffuse B/L C/W current meds Duonebs sched QID C/W Rocephin IV Pulmonology consult: Will f/u recs PT eval and walk test ordered MDS Anemia and Leukopenia on amidssion Chronic S/P PRBC tranfusion Monitor CAD Chronic, stable Monitor C/W home meds
[2017-10-29 00:28] VITALS: RESP 18
[2017-10-29] MEDS: Albuterol-Ipratrop 3 mg / 0.5 (3 ml) UD INH SCH ×2 (01:00→07:21)
[2017-10-29 06:42] LABS: CALCIUM 8.8 mg/dL (8.4-10.2)
[2017-10-29 07:58] VITALS: PULSE 73
[2017-10-29] MEDS: Pantoprazole 40 mg EC Tab PO SCH (09:16)
[2017-10-29 09:21] VITALS: BP 176/70
[2017-10-29] MEDS: Promethazine/Cod 6.25mg-10mg/5ml Syr UD PO PRN (09:22)
[2017-10-29 11:40] VITALS: TEMP 97.8; O2SAT 97
--- NOTE | 2017-10-29 16:16 | CP.PCM.DIS ---
Provider - Provider Date of Admission: 10/25/17 14:32 Attending physician: Riley Kern MD Time Spent in preparation of Discharge (in minutes): 30 Diagnosis - Discharge Diagnosis (1) COPD exacerbation Status: Acute Comment: Improved. DC on Medrol pack (2) Chronic renal disease, stage 4, severely decreased glomerular filtration rate (GFR) between 15-29 mL/min/1.73 square meter Status: Chronic Comment: Stable during admission (3) Myelodysplasia (myelodysplastic syndrome) Status: Chronic Comment: Unknown type. Cause of Pancitopenia. Improved (4) CHF (congestive heart failure) Status: Chronic Comment: Likely diastolic. Stable Hospital Course - Lab Results Lab Results: Micro Results 10/25/17 13:30 Blood Blood Culture - Preliminary NO GROWTH AFTER 4 DAYS Most Recent Lab Values WBC 4.8 K/uL (4.8-10.8) D 10/27/17 05:30 RBC 3.07 Mil/uL (4.40-5.90) L 10/27/17 05:30 Hgb 9.1 g/dL (12.0-18.0) L 10/27/17 05:30 Hct 27.4 % (35.0-51.0) L 10/27/17 05:30 MCV 89.1 fl (80.0-94.0) 10/27/17 05:30 MCH 29.8 pg (27.0-31.0) 10/27/17 05:30 MCHC 33.4 g/dL (33.0-37.0) 10/27/17 05:30 RDW 14.6 % (11.5-14.5) H 10/27/17 05:30 Plt Count 91 K/uL (130-400) L 10/27/17 05:30 MPV 11.3 fl (7.2-11.7) 10/25/17 13:35 Neut % (Auto) 53.8 % (50.0-75.0) 10/25/17 13:35 Lymph % (Auto) 26.3 % (20.0-40.0) 10/25/17 13:35 [place] % (Auto) 18.8 % (0.0-10.0) H 10/25/17 13:35 Eos % (Auto) 0.3 % (0.0-4.0) 10/25/17 13:35 Baso % (Auto) 0.8 % (0.0-2.0) 10/25/17 13:35 Neut # (Auto) 1.2 K/uL (1.8-7.0) L 10/25/17 13:35 Lymph # (Auto) 0.6 K/uL (1.0-4.3) L 10/25/17 13:35 [place] # (Auto) 0.4 K/uL (0.0-0.8) 10/25/17 13:35 Eos # (Auto) 0.0 K/uL (0.0-0.7) 10/25/17 13:35 Baso # (Auto) 0.0 K/uL (0.0-0.2) 10/25/17 13:35 Sodium 139 mmol/l (132-148) 10/29/17 06:10 Potassium 3.8 MMOL/L (3.6-5.0) 10/29/17 06:10 Chloride 104 mmol/L (98-107) 10/29/17 06:10 Carbon Dioxide 25 mmol/L (22-30) 10/29/17 06:10 Anion Gap 14 (10-20) 10/29/17 06:10 BUN 69 mg/dl (9-20) H 10/29/17 06:10 Creatinine 2.2 mg/dl (0.8-1.5) H 10/29/17 06:10 Est GFR ( Amer) 35 10/29/17 06:10 Est GFR (Non-Af Amer) 29 10/29/17 06:10 POC Glucose (mg/dL) 115 mg/dL (65-110) H 10/25/17 13:04 Random Glucose 126 mg/dL (75-110) H 10/29/17 06:10 Calcium 8.8 mg/dL (8.4-10.2) 10/29/17 06:10 Magnesium 2.2 MG/DL (1.6-2.3) 10/26/17 04:25 Total Bilirubin 0.4 mg/dl (0.2-1.3) 10/26/17 04:25 AST 26 U/L (17-59) 10/26/17 04:25 ALT 22 U/L (21-72) 10/26/17 04:25 Alkaline Phosphatase 44 U/L (38-126) 10/26/17 04:25 Total Protein 7.1 G/DL (6.3-8.2) 10/26/17 04:25 Albumin 3.1 g/dL (3.5-5.0) L 10/26/17 04:25 Globulin 4.0 gm/dL (2.2-3.9) H 10/26/17 04:25 Albumin/Globulin Ratio 0.8 (1.0-2.1) L 10/26/17 04:25 Influenza Typ A,B (EIA) Negative for flu a/b (NEGATIVE) 10/25/17 13:35 Blood Type O POSITIVE 10/26/17 09:35 Antibody Screen Positive 10/26/17 09:35 Antibody Identification Anti K Anti c 10/26/17 09:35 Antibody Identification Anti K Anti c 10/26/17 09:35 Antigen Identification c Antigen - NEGATIVE 10/26/17 09:35 Crossmatch See Detail 10/26/17 09:35 BBK History Checked Patient has bt 10/26/17 09:35 - Hospital Course Hospital Course: 77 y/o patient with Hx of COPD, CHF, MDS, HTN was admitted to hosp for COPD exacerbation and pancitopenia. Patient responded well to inpatient treatment including high dose steroids and abx. He is stable and markedly improved today. To be DC home and f/u as outpatient. Discharge Exam - Head Exam Head Exam: NORMAL INSPECTION - Eye Exam Eye Exam: EOMI, PERRL - Respiratory Exam Respiratory Exam: Wheezes (Scattered/Scant), NORMAL BREATHING PATTERN. absent: Decreased Breath Sounds, Rales, Respiratory Distress - Cardiovascular Exam Cardiovascular Exam: REGULAR RHYTHM, +S1, +S2. absent: Gallop - GI/Abdominal Exam GI & Abdominal Exam: Normal Bowel Sounds, Soft. absent: Tenderness - Neurological Exam Neurological exam: Alert, Normal Gait, Oriented x3 - Psychiatric Exam Psychiatric exam: Normal Affect, Normal Mood - Skin Skin Exam: Normal Color, Warm Discharge Plan - Discharge Medications Prescriptions: Azithromycin [Zithromax Tri-Manuel] 500 mg PO DAILY #5 tablet Methylprednisolone [Medrol Dose Pack (21 tabs)] 4 mg PO DAILY #21 mg Promethazine/Codeine [Phenergan/Codeine Oral Syrup] 10 ml PO Q6 PRN #1 bottle PRN Reason: Cough Zolpidem [Ambien] 5 mg PO DAILY #30 tab - Follow Up Plan Condition: GOOD Disposition: HOME/ ROUTINE Instructions: Heart Healthy Diet, Acute Bronchitis, Adult (DC), Exacerbation of COPD (DC) Additional Instructions: Activity as tolerated . To follow-up w/ Dr Kern to call for appt. Heart healthy low fat low cholesterol diet. Referrals: Riley Kern MD [Staff Provider] - FAMILY PROVIDER,LINDSEY [Family Provider] - Jonny Garza MD [Staff Provider] -
== END 2017-10-29 13:22 | disposition home health service (06) | DRG 191 ==
LOC: H.ER 12:43 → H.ERHOLD 14:32 → H.TEL 16:17
PROVIDERS: ADMIT Family Medicine; ATTEND Family Medicine
PROC: 30233N1 Transfusion of Nonautologous Red Blood Cells into Peripheral Vein, Percutaneous Approach (ICD-10-PCS; principal; 2017-10-26)
DX: J44.1 Chronic obstructive pulmonary disease with (acute) exacerbation (principal); I13.0 Hypertensive heart and chronic kidney disease with heart failure and stage 1 through stage 4 chronic kidney disease, or unspecified chronic kidney disease; N18.4 Chronic kidney disease, stage 4 (severe); D61.818 Other pancytopenia; I50.32 Chronic diastolic (congestive) heart failure; D46.9 Myelodysplastic syndrome, unspecified; E03.9 Hypothyroidism, unspecified; I25.10 Atherosclerotic heart disease of native coronary artery without angina pectoris; Z95.1 Presence of aortocoronary bypass graft; Z87.891 Personal history of nicotine dependence; E78.5 Hyperlipidemia, unspecified; E78.00 Pure hypercholesterolemia, unspecified; J45.909 Unspecified asthma, uncomplicated

== ENCOUNTER 2017-11-05 12:29 | Inpatient (IN) | payer MEDICARE ==
[2017-11-05 12:29] VITALS: BMI 27.8
[2017-11-05] MEDS ORDERED: Sodium Chloride 0.9% 1,000 ML IV ONE (13:06)
--- NOTE | 2017-11-05 13:47 | ED PDOC ---
HPI: Abdomen Time Seen by Provider: 11/05/17 12:35 Chief Complaint (Nursing): Trauma History Per: Patient History/Exam Limitations: no limitations Onset/Duration Of Symptoms: Days (1), Gradual Current Symptoms Are (Timing): Still Present Severity: Mild Location Of Pain/Discomfort: LUQ, LLQ Quality Of Discomfort: Dull, Aching Associated Symptoms: denies: Fever, Chills, Nausea, Vomiting, Diarrhea, Back Pain, Chest Pain, Constipation, Urinary Symptoms Exacerbating Factors: None Alleviating Factors: None Additional History Per: Patient Additional Complaint(s): To ED via BLS for evaluation of bruising to abdomen x 1 day. Patient states he fell from his bed yesterday and struck is left flank, no head trauma or neck pain, states miild donald. Past Medical History Reviewed: Historical Data, Nursing Documentation, Vital Signs Vital Signs: Last Vital Signs Temp 98.1 F 11/07/17 12:00 Pulse 65 11/07/17 12:00 Resp 18 11/07/17 12:00 BP 164/67 H 11/07/17 12:00 Pulse Ox 98 11/07/17 12:00 - Medical History PMH: Anemia, Asthma, CAD, CHF, COPD, HTN, Hypercholesterolemia, Hyperlipidemia, Hypothyroidism, Chronic Kidney Disease Denies: HIV - Surgical History Surgical History: CABG - Family History Family History: States: Unknown Family Hx - Living Arrangements Living Arrangements: With Family - Social History Current smoker - smoking cessation education provided: No - Home Medications Home Medications: Ambulatory Orders Medication Instructions Recorded Allopurinol [Zyloprim] 100 mg PO HS 12/26/15 Gabapentin [Neurontin] 300 mg PO Q12 12/26/15 Omeprazole [Prilosec] 20 mg PO BID 12/26/15 Terazosin [Hytrin] 10 mg PO HS 12/26/15 Aspirin [Aspirin Chewable] 81 mg PO DAILY 03/23/17 Isosorbide Mononitrate ER [Imdur 120 mg PO HS 03/23/17 ER] Lisinopril [Zestril] 20 mg PO Q12 03/23/17 Simvastatin 40 mg PO HS 03/23/17 Carvedilol [Coreg] 12.5 mg PO Q12 10/25/17 Finasteride [Proscar] 5 mg PO HS 10/25/17 amLODIPine [Norvasc] 5 mg PO HS 10/25/17 Promethazine/Codeine 10 ml PO Q6 PRN #1 bottle 10/29/17 [Phenergan/Codeine Oral Syrup] Calcitriol [Calcitriol] 0.25 mcg PO DAILY 11/05/17 Cholecalciferol [Vitamin D 1000 IU] 1,000 unit PO DAILY 11/05/17 Citalopram Hydrobromide [Celexa] 20 mg PO DAILY 11/05/17 Citalopram Hydrobromide 40 mg PO DAILY 11/05/17 [Citalopram HBr] Fluticasone/Salmeterol [Advair 1 puff IH Q12 11/05/17 250-50 Diskus] Levothyroxine [Synthroid] 88 mcg PO DAILY 11/05/17 Nitroglycerin [Nitrostat] 0.4 mg SL Q5MIN PRN 11/05/17 Zolpidem [Ambien] 5 mg PO HS 11/05/17 hydroCHLOROthiazide [Microzide] 12.5 mg PO DAILY 11/05/17 - Allergies Allergies/Adverse Reactions: Allergies Allergy/AdvReac Type Severity Reaction Status Date / Time No Known Allergies Allergy Verified 11/05/17 12:31 Review of Systems ROS Statement: Except As Marked, All Systems Reviewed And Found Negative Constitutional: Negative for: Fever, Chills Cardiovascular: Negative for: Chest Pain, Palpitations Respiratory: Negative for: Cough, Shortness of Breath Gastrointestinal: Positive for: Abdominal Pain. Negative for: Nausea, Vomiting , Diarrhea Genitourinary Male: Negative for: Dysuria Musculoskeletal: Negative for: Neck Pain Neurological: Positive for: Headache. Negative for: Weakness, Numbness, Confusion, Seizures, Altered Mental Status Physical Exam - Reviewed Nursing Documentation Reviewed: Yes Vital Signs Reviewed: Yes - Physical Exam Appears: Positive for: No Acute Distress, Uncomfortable Head Exam: Positive for: ATRAUMATIC, NORMAL INSPECTION, NORMOCEPHALIC Skin: Positive for: Normal Color, Warm, Dry Eye Exam: Positive for: Normal appearance, EOMI, PERRL. Negative for: Nystagmus , Periorbital swelling, Periorbital tenderness, Conjunctival injection Neck: Positive for: Normal, Painless ROM, Supple Cardiovascular/Chest: Positive for: Regular Rate, Rhythm. Negative for: Chest Non Tender (left lower chest), Edema, Gallop, Bradycardia, Tachycardia Respiratory: Positive for: Normal Breath Sounds. Negative for: Decreased Breath Sounds, Accessory Muscle Use, Crackles, Rales, Rhonchi, Stridor, Wheezing , Respiratory Distress Pulses-Radial (L): 2+ Pulses-Radial (R): 2+ Gastrointestinal/Abdominal: Positive for: Bowel Sounds, Soft, Other (brusing to left flank and left abdomen, no tenderness). Negative for: Tenderness Back: Positive for: Normal Inspection. Negative for: L CVA Tenderness, R CVA Tenderness, Vertebral Tenderness, Decreased ROM, Muscle Spasm Extremity: Positive for: Normal ROM. Negative for: Tenderness, Pedal Edema, Calf Tenderness, Deformity, Swelling Neurologic/Psych: Positive for: Alert, hiv nurse II-XII, Oriented. Negative for: Motor/Sensory Deficits - Laboratory Results Result Diagrams: 11/07/17 04:51 11/07/17 04:51 - ECG O2 Sat by Pulse Oximetry: 95 Pulse Ox Interpretation: Normal Disposition - Clinical Impression Clinical Impression: Abdominal trauma, Anemia, Thrombocytopenia, Mass of lung - Patient ED Disposition Is Patient to be Admitted: Transfer of Care Counseled Patient/Family Regarding: Studies Performed, Diagnosis, Need For Followup - Disposition Disposition Time: 16:00 Condition: FAIR
[2017-11-05 14:23] LABS: ALB/GLOB RATIO 0.8 (1.0-2.1); ALBUMIN 2.7 g/dL (3.5-5.0); CALCIUM 8.2 mg/dL (8.4-10.2)
[2017-11-05 14:40] LABS: BASO % 0.6 % (0.0-2.0); EOS % 0.4 % (0.0-4.0); HEMOGLOBIN 6.8 g/dL (12.0-18.0); LYMPH # 0.4 K/uL (1.0-4.3); LYMPH % 22.2 % (20.0-40.0); MEAN CELL VOLUME 90.1 fl (80.0-94.0); MEAN CORPUSCULAR HEMOGLOBIN 29.9 pg (27.0-31.0); MEAN CORPUSCULAR HGB CONC 33.2 g/dL (33.0-37.0); MEAN PLATELET VOLUME 12.3 fl (7.2-11.7); MONO # 0.5 K/uL (0.0-0.8); MONO % 23.7 % (0.0-10.0); NEUT % 53.1 % (50.0-75.0); NRBC % 0.3 % (0.0-0.0); RBC 2.27 Mil/uL (4.40-5.90); RED CELL DISTRIBUTION WIDTH 14.5 % (11.5-14.5)
--- NOTE | 2017-11-05 15:01 | RAD ---
HISTORY: abd pain trauma COMPARISON: Portable chest 10/25/2017. FINDINGS: LUNGS: Interval infiltrate seen at the right upper lobe. None is seen at the left chest. PLEURA: No significant pleural effusion identified, no pneumothorax apparent. CARDIOVASCULAR: Vascular markings appears somewhat accentuated though the peripheral reticular markings are not. Borderline pulmonary venous congestion is questioned. OSSEOUS STRUCTURES: Sternotomy wires again noted. VISUALIZED UPPER ABDOMEN: Normal. OTHER FINDINGS: None. IMPRESSION: Interval right upper lobe infiltrate. Borderline pulmonary venous congestion.
[2017-11-05 15:05] LABS: PLATELET COUNT 32 K/uL (130-400)
[2017-11-05 15:41] LABS: LYMPHOCYTE 20 % (20-50); MONOCYTE 24 % (0-10); NEUTROPHIL 55 % (42-75); PLATELET ESTIMATE DECREASED (NORMAL); REACTIVE LYMPHOCYTES 1 % (0-0); TOTAL CELLS COUNTED 100
[2017-11-05 15:42] LABS: HYPOCHROMIC SLIGHT; LARGE PLATELETS PRESENT
--- NOTE | 2017-11-05 15:43 | ED PDOC ---
- Laboratory Results Result Diagrams: 11/05/17 13:30 11/05/17 15:40 Interpretation Of Abn Labs: 6.8 hg, platelets 32 - ECG ECG Rhythm: Positive for: Nonspecific Changes O2 Sat by Pulse Oximetry: 95 - Progress ED Course And Treament: 1535: Took over care from Dr. Metcalf. FU on ct. Getting blood transfusion. Hg 6.8. Has fall and bruising/abd pain L. CT head no acute. CT Chest, Abd, Pelvis 1. There is a large area of consolidation at the right upper lobe inferiorly and anteriorly which may be posttraumatic or neoplastic. Two pulmonary nodules are identified with 1 age at the upper lobes which are nonspecific. No significant lymphadenopathy. No fractures adjacent to the consolidated right upper lobe although there is a mild right pleural effusion. Consider follow-up PET-CT or even tissue diagnosis following therapy for potential contusion or pneumonia. No prominent lymphadenopathy in the chest. 1835: Stable. AAOx3. Vitals maintained. Will admit to Dr. Kern. Pt. well known to him. Surgery resident made aware and will consult. Will give 1 pack of platelets. - Critical Care Total Time (In Min): 30 Documented Critical Care: Time excludes all time spent performint seperately billable procedures Disposition - Clinical Impression Clinical Impression: Abdominal trauma, Anemia, Thrombocytopenia, Mass of lung - POA Present On Arrival: Falls Or Trauma - Disposition Disposition: Admitted as In-Patient Disposition Time: 18:20 Condition: FAIR
[2017-11-05 15:58] LABS: ALB/GLOB RATIO 0.8 (1.0-2.1); ALBUMIN 2.7 g/dL (3.5-5.0)
[2017-11-05 16:16] LABS: INR 1.3 (0.9-1.2); PARTIAL THROMBOPLASTIN TIME 27.7 Seconds (25.6-37.1); PROTHROMBIN TIME 13.9 Seconds (9.8-13.1)
--- NOTE | 2017-11-05 16:41 | CT ---
PROCEDURE: CT HEAD WITHOUT CONTRAST. HISTORY: trauma COMPARISON: 03/23/2017 TECHNIQUE: Axial computed tomography images were obtained through the head/brain without intravenous contrast. Radiation dose: Total exam DLP = 913.72 mGy-cm. This CT exam was performed using one or more of the following dose reduction techniques: Automated exposure control, adjustment of the mA and/or kV according to patient size, and/or use of iterative reconstruction technique. FINDINGS: HEMORRHAGE: No intracranial hemorrhage. BRAIN: No mass effect or edema. Mild diffuse atrophy consistent with age. Mild periventricular white matter lucency with patchy and confluent deep and subcortical white matter lucency, consistent with age related microvascular ischemic change. No evidence of acute infarct. VENTRICLES: Unremarkable. No hydrocephalus. CALVARIUM: Unremarkable. PARANASAL SINUSES: Mild chronic pansinusitis. MASTOID AIR CELLS: Unremarkable as visualized. No inflammatory changes. OTHER FINDINGS: None. IMPRESSION: No intracranial hemorrhage. Mild chronic pansinusitis. Age related atrophy and chronic white matter ischemic change peer
--- NOTE | 2017-11-05 17:44 | CT ---
PROCEDURE: CT Chest, Abdomen and Pelvis without intravenous contrast HISTORY: trauma COMPARISON: None. TECHNIQUE: Helical CT of the chest, abdomen and pelvis was performed without oral or intravenous contrast as requested. Axial, sagittal and coronal projections of been submitted for interpretation. Radiation dose: Total exam DLP = 1209.25 mGy-cm. This CT exam was performed using one or more of the following dose reduction techniques: Automated exposure control, adjustment of the mA and/or kV according to patient size, and/or use of iterative reconstruction technique. FINDINGS: CT CHEST WITHOUT CONTRAST: LUNGS: Extensive consolidation is identified in the nondependent right upper lobe in its mid to inferior extent suspicious for contusion or pneumonia. Nondependent changes at the right upper lobe are nonspecific and may reflect asymmetric atelectasis. 1.1 x 1.6 cm nodules identified in the right upper lobe and image 28 series 2 with the a 0.8 x 0.4 cm nodule at the left upper lobe and image 32. 1.3 by 1.5 cm nodule is identified at the lingula and image 40. The type pattern may reflect neoplasm and follow-up nuclear PET CT scan is recommended or even elective biopsy. Central airways appear clear. MEDIASTINUM: Mild right pleural effusion is evident. No left pleural effusion or pericardial effusion. LYMPH NODES: 1.7 x 1.0 cm pretracheal lymph node is identified inferiorly with otherwise shotty mediastinal lymph nodes noted. No gross hilar adenopathy. Shotty axillary lymph nodes are identified. PLEURA: A mild right pleural effusions identified with none on the left. No pericardial effusion. Cardiac size is normal. Extensive coronary artery atherosclerotic changes are identified with occasional surgical clips and patient is status post median sternotomy suggesting prior CABG. The thoracic inlet is unremarkable. BONES: Unremarkable. OTHER FINDINGS: None. CT ABDOMEN AND PELVIS: LIVER: Unremarkable. No gross lesion or ductal dilatation. GALLBLADDER AND BILE DUCTS: Unremarkable. PANCREAS: Unremarkable. No gross lesion or ductal dilatation. SPLEEN: Unremarkable. ADRENALS: Unremarkable. No mass. KIDNEYS AND URETERS: 2.1 cyst noted at upper pole right kidney. No hydronephrosis. No solid mass. Nonspecific bilateral streaky perinephric changes identified. VASCULATURE: Unremarkable. No aortic aneurysm. BOWEL: Unremarkable. No obstruction. No gross mural thickening. APPENDIX: Normal appendix. PERITONEUM: Unremarkable. No free fluid. No free air. LYMPH NODES: Unremarkable. No enlarged lymph nodes. BLADDER: Unremarkable. REPRODUCTIVE: Unremarkable. BONES: No acute fracture. OTHER FINDINGS: None. IMPRESSION: 1. There is a large area of consolidation at the right upper lobe inferiorly and anteriorly which may be posttraumatic or neoplastic. Two pulmonary nodules are identified with 1 age at the upper lobes which are nonspecific. No significant lymphadenopathy. No fractures adjacent to the consolidated right upper lobe although there is a mild right pleural effusion. Consider follow-up PET-CT or even tissue diagnosis following therapy for potential contusion or pneumonia. No prominent lymphadenopathy in the chest. 2. Nonacute abdomen/pelvis CT including fracture or hemoperitoneum. 3. Tiny right renal cyst identified. Nonspecific bilateral perinephric streaky changes.
--- NOTE | 2017-11-05 19:46 | CP.PCM.CON ---
History of Present Illness - History of Present Illness History of Present Illness: General Surgery Consult Note for Dr. Ramires This 77M with a PMH of MS, Leukemia, HTN, Renal failure and chronic transfusion requirement presented after he fell from bed. He reports that he was feeling a little dizzy however he reports that he does not fall often and that this is a one time. He denies any abdominal pain or tenderness. He denies any fevers chills or chest pain. He reports that he usually requires blood transfusions every ten days due to his leukemia and that his last transfusion was 10 days ago. PMH: See above PSH: PCI with cardiac and LE stenting, CABG Allergies: NKDA Social Hx: Patient lives with family, denies recent EtOH or tobacco Review of Systems - Review of Systems All systems: reviewed and no additional remarkable complaints except - Constitutional Constitutional: Weakness. absent: Anorexia, Chills Past Patient History - Past Medical History & Family History Past Medical History?: No - Past Social History Smoking Status: Former Smoker - CARDIAC Hx Cardiac Disorders: Yes - PULMONARY Hx Respiratory Disorders: Yes - NEUROLOGICAL Hx Neurological Disorder: Yes - HEENT Hx HEENT Problems: No - RENAL Hx Chronic Kidney Disease: Yes - ENDOCRINE/METABOLIC Hx Endocrine Disorders: Yes - HEMATOLOGICAL/ONCOLOGICAL Hx Blood Disorders: Yes - INTEGUMENTARY Hx Dermatological Problems: No - MUSCULOSKELETAL/RHEUMATOLOGICAL Hx Musculoskeletal Disorders: Yes Hx Falls: Yes - GASTROINTESTINAL Hx Gastrointestinal Disorders: No - GENITOURINARY/GYNECOLOGICAL Hx Genitourinary Disorders: Yes Hx Prostate Problems: Yes - PSYCHIATRIC Hx Psychophysiologic Disorder: No - SURGICAL HISTORY Hx Coronary Artery Bypass Graft: Yes - ANESTHESIA Hx Anesthesia: Yes Hx Anesthesia Reactions: No Hx Malignant Hyperthermia: No Meds Allergies/Adverse Reactions: Allergies Allergy/AdvReac Type Severity Reaction Status Date / Time No Known Allergies Allergy Verified 11/05/17 12:31 Physical Exam - Constitutional Appears: Non-toxic, No Acute Distress - Head Exam Head Exam: ATRAUMATIC, NORMOCEPHALIC - Eye Exam Eye Exam: EOMI, Normal appearance - ENT Exam ENT Exam: Mucous Membranes Moist - Respiratory Exam Respiratory Exam: NORMAL BREATHING PATTERN - Cardiovascular Exam Cardiovascular Exam: REGULAR RHYTHM - GI/Abdominal Exam GI & Abdominal Exam: Soft. absent: Distended, Firm, Guarding, Rebound, Rigid, Tenderness Additional comments: Abdominal wall echymosis no hematoma - Extremities Exam Additional comments: RUE echymosis - Neurological Exam Neurological exam: Alert, Oriented x3 - Psychiatric Exam Psychiatric exam: Normal Affect, Normal Mood Results - Vital Signs Recent Vital Signs: Last Vital Signs Temp 98.5 F 11/05/17 17:58 Pulse 88 11/05/17 17:58 Resp 18 11/05/17 17:58 BP 155/83 H 11/05/17 17:58 Pulse Ox 95 11/05/17 18:49 - Labs Result Diagrams: 11/05/17 13:30 11/05/17 15:40 Labs: Laboratory Results - last 24 hr 11/05/17 11/05/17 11/05/17 13:30 13:30 13:30 WBC 2.0 L* D RBC 2.27 L Hgb 6.8 L D Hct 20.5 L MCV 90.1 MCH 29.9 MCHC 33.2 RDW 14.5 Plt Count 32 L D MPV 12.3 H Neut % (Auto) 53.1 Lymph % (Auto) 22.2 [place] % (Auto) 23.7 H Eos % (Auto) 0.4 Baso % (Auto) 0.6 Neut # (Auto) 1.0 L Lymph # (Auto) 0.4 L [place] # (Auto) 0.5 Eos # (Auto) 0.0 Baso # (Auto) 0.0 Neutrophils % (Manual) 55 Lymphocytes % (Manual) 20 Reactive Lymphs % 1 H Monocytes % (Manual) 24 H Platelet Estimate Decreased L Large Platelets Present Hypochromasia (manual) Slight PT Cancelled INR Cancelled APTT Cancelled Sodium 137 Potassium 3.9 Chloride 102 Carbon Dioxide 25 Anion Gap 14 BUN 50 H Creatinine 2.1 H Est GFR ( Amer) 37 Est GFR (Non-Af Amer) 31 Random Glucose 91 Calcium 8.2 L Total Bilirubin 0.6 AST 31 ALT 32 Alkaline Phosphatase 39 Total Protein 6.1 L Albumin 2.7 L Globulin 3.4 Albumin/Globulin Ratio 0.8 L Lipase 128 Blood Type Antibody Screen BBK History Checked 11/05/17 11/05/17 11/05/17 13:30 15:40 15:40 WBC RBC Hgb Hct MCV MCH MCHC RDW Plt Count MPV Neut % (Auto) Lymph % (Auto) [place] % (Auto) Eos % (Auto) Baso % (Auto) Neut # (Auto) Lymph # (Auto) [place] # (Auto) Eos # (Auto) Baso # (Auto) Neutrophils % (Manual) Lymphocytes % (Manual) Reactive Lymphs % Monocytes % (Manual) Platelet Estimate Large Platelets Hypochromasia (manual) PT 13.9 H INR 1.3 H APTT 27.7 Sodium 136 Potassium 4.1 Chloride 104 Carbon Dioxide 22 Anion Gap 14 BUN 48 H Creatinine 2.0 H Est GFR ( Amer) 40 Est GFR (Non-Af Amer) 33 Random Glucose 86 Calcium 8.0 L Total Bilirubin 0.8 AST 35 ALT 30 Alkaline Phosphatase 34 L Total Protein 6.2 L Albumin 2.7 L Globulin 3.5 Albumin/Globulin Ratio 0.8 L Lipase Blood Type O POSITIVE Antibody Screen Positive BBK History Checked Patient has bt Assessment & Plan - Assessment and Plan (Free Text) Assessment: 77M s/p fall with abdominal wall echymosis and anemia Abdominal binder Mario bandage to RUE echymosis Serial Abdominal exams Followup CBC and platelets post transfusion Discuss with Dr. Ike Kent PGY2
[2017-11-05] MEDS ORDERED: Albuterol-Ipratrop 3 mg / 0.5 (3 ml) UD INH STA (22:21)
[2017-11-05] MEDS ORDERED: Albuterol-Ipratrop 3 mg / 0.5 (3 ml) UD ONE (22:23)
--- NOTE | 2017-11-05 22:24 | PCM.RRT ---
PAINTER SET Nurse Assessment - Situation PAINTER SET Responder Arrival Time: 22:15 I.Reason for PAINTER SET - A) Acute Change in Patient: Subjective: PAINTER SET Location: [facility] PAINTER SET reason: shortness of breath S: PAINTER SET was called by RN for 77 yo male pmhx COPD, CHF, MDS, and HTN because of shortness of breath. Upon arrival to the pt's bedside, pt is noted to be tachypenic and complained of shortness of breath. Denies any chest pain, dizziness, nausea, vomiting or focal weakness. O: BP 243/110, HR 95, RR: 22, pulse ox 94% on RA General: tachypneic but no in acute distress. HEENT: ATNC Respiratory: Diffuse B/L wheezing throughout the lung field. Cardio: RRR, normal S1,S2 psych: AAO X 3 A/P: 77 yo male pmhx COPD, CHF, MDS, and HTN admitted for abdominal ecchymosis s /p fall and anemia, PAINTER SET was called for shortness of breath. Plan: PAINTER SET intervention: CXR reviewed duoneb 3ml neb STAT Solumedrol 125 mg ivp Vancomycin 1 gm ivp Zosyn 2.25 gm ivp 2 L NC O2 to keep pulse ox >94% Elevate the head of the bed to 30 degrees. Pt's Vitals at the end of PAINTER SET was BP 191/73, HR 95, RR 18, PULSE OX 97% ON 2 L NC O2 Pt was comfortable and was not in acute distress. PAINTER SET leader: Dr. Tapia PAINTER SET resident: Dr. Daniel, PGY-2, Dr. Choi, PGY-1
[2017-11-05] MEDS ORDERED: Albuterol-Ipratrop 3 mg / 0.5 (3 ml) UD INH PRN (22:29)
[2017-11-06] MEDS: Fluticasone-Salmeterol 250-50mcg Diskus IH SCH ×3 (00:09→21:22)
[2017-11-06] MEDS: Albuterol-Ipratrop 3 mg / 0.5 (3 ml) UD INH SCH ×7 (00:16→23:22)
[2017-11-06] MEDS ORDERED: methylPREDNISolone 125 MG in Sodium Chloride 0.9% 50 ML IVPB SCH (01:00)
[2017-11-06] MEDS: Levothyroxine 88 MCG TAB PO SCH (06:42)
[2017-11-06 06:50] LABS: MEAN CELL VOLUME 89.6 fl (80.0-94.0); MEAN CORPUSCULAR HEMOGLOBIN 30.4 pg (27.0-31.0); RBC 2.63 Mil/uL (4.40-5.90)
[2017-11-06 07:04] LABS: ALB/GLOB RATIO 0.8 (1.0-2.1); ALBUMIN 2.7 g/dL (3.5-5.0); CALCIUM 8.1 mg/dL (8.4-10.2)
--- NOTE | 2017-11-06 07:13 | CP.PCM.HP ---
<EfraínQuentin - Last Filed: 11/06/17 14:05> History of Present Illness - History of Present Illness History of Present Illness: 77 y/o patient with Hx of COPD, CHF, MDS, HTN, discharged recently from hosp after being treated for COPD exacerbation and pancitopenia presented to ED last night after falling from bed and concerns about bruising in the flank/Chest area. He states that he does not fall often and that this is a one time. He denies any abdominal pain or tenderness. He denies any fevers chills or chest pain. Patient requires transfusion often, due to his MDS. On ED plts, wbc and hgb were very low and CT Chest shows nodules/consolidation with poss hematoma collection. VS Stable. PMH: See above PSH: PCI with cardiac and LE stenting, CABG Allergies: NKDA Social Hx: Patient lives with family, denies recent EtOH or tobacco Present on Admission - Present on Admission Any Indicators Present on Admission: No Review of Systems - Review of Systems All systems: reviewed and no additional remarkable complaints except Review of Systems: Rest as PER HPI - Constitutional Constitutional: Weakness - Integumentary Integumentary: Bleeding Lesions (Ecchymosis) Past Patient History - Past Medical History & Family History Past Medical History?: No - Past Social History Smoking Status: Former Smoker - CARDIAC Hx Cardiac Disorders: Yes Hx Congestive Heart Failure: Yes Hx Hypercholesterolemia: Yes Hx Hypertension: Yes - PULMONARY Hx Respiratory Disorders: Yes Hx Asthma: Yes Hx Chronic Obstructive Pulmonary Disease (COPD): Yes Hx Pneumonia: Yes - NEUROLOGICAL Hx Neurological Disorder: No - HEENT Hx HEENT Problems: Yes - RENAL Hx Chronic Kidney Disease: Yes - ENDOCRINE/METABOLIC Hx Endocrine Disorders: Yes Hx Hypothyroidism: Yes - HEMATOLOGICAL/ONCOLOGICAL Hx Blood Disorders: Yes Hx Anemia: Yes Hx Blood Transfusions: Yes Hx Leukemia: Yes - INTEGUMENTARY Hx Dermatological Problems: No - MUSCULOSKELETAL/RHEUMATOLOGICAL Hx Musculoskeletal Disorders: Yes Hx Falls: Yes - GASTROINTESTINAL Hx Gastrointestinal Disorders: No - GENITOURINARY/GYNECOLOGICAL Hx Genitourinary Disorders: Yes Hx Prostate Problems: Yes - PSYCHIATRIC Hx Psychophysiologic Disorder: No Hx Substance Use: No - SURGICAL HISTORY Hx Coronary Artery Bypass Graft: Yes - ANESTHESIA Hx Anesthesia: Yes Hx Anesthesia Reactions: No Hx Malignant Hyperthermia: No Has any member of the family had a problem w/ anesthesia?: No Meds Allergies/Adverse Reactions: Allergies Allergy/AdvReac Type Severity Reaction Status Date / Time No Known Allergies Allergy Verified 11/05/17 12:31 Physical Exam - Constitutional Appears: Non-toxic Additional comments: Sleepy - Eye Exam Eye Exam: EOMI, PERRL - ENT Exam ENT Exam: Mucous Membranes Moist - Respiratory Exam Respiratory Exam: Decreased Breath Sounds, Rhonchi, NORMAL BREATHING PATTERN - Cardiovascular Exam Cardiovascular Exam: REGULAR RHYTHM, +S1, +S2. absent: Gallop - GI/Abdominal Exam GI & Abdominal Exam: Normal Bowel Sounds, Soft, Tenderness (MIld LUQ) - Extremities Exam Extremities exam: Negative for: calf tenderness, joint swelling, pedal edema, tenderness - Back Exam Back exam: absent: CVA tenderness (L), CVA tenderness (R) - Neurological Exam Neurological exam: Alert, Oriented x3 Additional comments: Sleepy but easily arousable - Psychiatric Exam Psychiatric exam: Normal Affect, Normal Mood - Skin Skin Exam: Warm (Moderate ecchymotic area LUQ/Left lower chest area related to recent fall) Results - Vital Signs Recent Vital Signs: Last Vital Signs Temp 97.3 F L 11/06/17 05:05 Pulse 86 11/06/17 05:05 Resp 18 11/06/17 05:05 BP 155/74 H 11/06/17 05:05 Pulse Ox 94 L 11/06/17 05:05 - Labs Result Diagrams: 11/06/17 06:16 11/06/17 06:16 Labs: Laboratory Results - last 24 hr 11/05/17 11/05/17 11/05/17 13:30 13:30 13:30 WBC 2.0 L* D RBC 2.27 L Hgb 6.8 L D Hct 20.5 L MCV 90.1 MCH 29.9 MCHC 33.2 RDW 14.5 Plt Count 32 L D MPV 12.3 H Neut % (Auto) 53.1 Lymph % (Auto) 22.2 [place] % (Auto) 23.7 H Eos % (Auto) 0.4 Baso % (Auto) 0.6 Neut # (Auto) 1.0 L Lymph # (Auto) 0.4 L [place] # (Auto) 0.5 Eos # (Auto) 0.0 Baso # (Auto) 0.0 Neutrophils % (Manual) 55 Lymphocytes % (Manual) 20 Reactive Lymphs % 1 H Monocytes % (Manual) 24 H Platelet Estimate Decreased L Large Platelets Present Hypochromasia (manual) Slight PT Cancelled INR Cancelled APTT Cancelled Sodium 137 Potassium 3.9 Chloride 102 Carbon Dioxide 25 Anion Gap 14 BUN 50 H Creatinine 2.1 H Est GFR ( Amer) 37 Est GFR (Non-Af Amer) 31 Random Glucose 91 Calcium 8.2 L Total Bilirubin 0.6 AST 31 ALT 32 Alkaline Phosphatase 39 Total Protein 6.1 L Albumin 2.7 L Globulin 3.4 Albumin/Globulin Ratio 0.8 L Lipase 128 Blood Type Antibody Screen Antibody Identification Crossmatch BBK History Checked 11/05/17 11/05/17 11/05/17 13:30 15:40 15:40 WBC RBC Hgb Hct MCV MCH MCHC RDW Plt Count MPV Neut % (Auto) Lymph % (Auto) [place] % (Auto) Eos % (Auto) Baso % (Auto) Neut # (Auto) Lymph # (Auto) [place] # (Auto) Eos # (Auto) Baso # (Auto) Neutrophils % (Manual) Lymphocytes % (Manual) Reactive Lymphs % Monocytes % (Manual) Platelet Estimate Large Platelets Hypochromasia (manual) PT 13.9 H INR 1.3 H APTT 27.7 Sodium 136 Potassium 4.1 Chloride 104 Carbon Dioxide 22 Anion Gap 14 BUN 48 H Creatinine 2.0 H Est GFR ( Amer) 40 Est GFR (Non-Af Amer) 33 Random Glucose 86 Calcium 8.0 L Total Bilirubin 0.8 AST 35 ALT 30 Alkaline Phosphatase 34 L Total Protein 6.2 L Albumin 2.7 L Globulin 3.5 Albumin/Globulin Ratio 0.8 L Lipase Blood Type O POSITIVE Antibody Screen Positive Antibody Identification Anti Sakshi Crossmatch See Detail BBK History Checked Patient has bt 11/06/17 06:16 WBC RBC Hgb Hct MCV MCH MCHC RDW Plt Count MPV Neut % (Auto) Lymph % (Auto) [place] % (Auto) Eos % (Auto) Baso % (Auto) Neut # (Auto) Lymph # (Auto) [place] # (Auto) Eos # (Auto) Baso # (Auto) Neutrophils % (Manual) Lymphocytes % (Manual) Reactive Lymphs % Monocytes % (Manual) Platelet Estimate Large Platelets Hypochromasia (manual) PT INR APTT Sodium 138 Potassium 4.1 Chloride 106 Carbon Dioxide 20 L Anion Gap 16 BUN 51 H Creatinine 2.1 H Est GFR ( Amer) 37 Est GFR (Non-Af Amer) 31 Random Glucose 138 H Calcium 8.1 L Total Bilirubin 0.7 AST 31 ALT 31 Alkaline Phosphatase 41 Total Protein 5.9 L Albumin 2.7 L Globulin 3.3 Albumin/Globulin Ratio 0.8 L Lipase Blood Type Antibody Screen Antibody Identification Crossmatch BBK History Checked Assessment & Plan - Assessment and Plan (Free Text) Assessment: 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, unspecified S/O Plt transfusion For PRBC transfusion today Hem-Onc consult appreciated hold aspirin 81 mg Lung nodules/Consolidation CT findings R/O Hemothorax/Malignancy Hem-onc recs PET scan Pulm consult appreciated VS stable C/W IV broad spec Abx for now COPD exacerbation Stable C/W Current treatment HTN Chronic Stable after PRUNER event C/W Current meds <Riley Kern - Last Filed: 11/09/17 22:07> Results - Vital Signs Recent Vital Signs: Last Vital Signs Temp 98.1 F 11/09/17 19:30 Pulse 69 11/09/17 21:50 Resp 20 11/09/17 19:30 BP 182/73 H 11/09/17 21:50 Pulse Ox 96 11/09/17 19:30 - Labs Result Diagrams: 11/09/17 04:25 11/09/17 12:00 Labs: Laboratory Results - last 24 hr 11/09/17 11/09/17 04:25 12:00 WBC 2.1 L RBC 3.25 L Hgb 9.8 L Hct 28.7 L MCV 88.2 MCH 30.1 MCHC 34.1 RDW 14.1 Plt Count 34 L MPV 12.1 H Neut % (Auto) 46.5 L Lymph % (Auto) 33.4 [place] % (Auto) 18.7 H Eos % (Auto) 0.3 Baso % (Auto) 1.1 Neut # (Auto) 1.0 L Lymph # (Auto) 0.7 L [place] # (Auto) 0.4 Eos # (Auto) 0.0 Baso # (Auto) 0.0 Sodium 139 Potassium 4.2 Chloride 102 Carbon Dioxide 26 Anion Gap 15 BUN 64 H Creatinine 2.7 H Est GFR ( Amer) 28 Est GFR (Non-Af Amer) 23 Random Glucose 77 Calcium 8.0 L Assessment & Plan - Assessment and Plan (Free Text) Plan: I was present during evaluation and discussed with Dr Kenny re plans of care and tx. Riley Kern M.D.
[2017-11-06 07:20] LABS: WHITE BLOOD COUNT 1.5 K/uL (4.8-10.8)
[2017-11-06] MEDS: Pantoprazole 40 mg EC Tab PO SCH ×2 (08:14→16:45)
[2017-11-06] MEDS: Cholecalciferol 1,000 INTLU TAB PO SCH (08:18)
--- NOTE | 2017-11-06 09:05 | CP.PCM.CON ---
History of Present Illness - History of Present Illness History of Present Illness: This is a 77 yrs pld male who was admitted after he fell out of bed and had a near syncopal episode as he tries to get up. In the ER CT scan of the head was normal, but the chest shows consolidation in the right upper lobe with subcentimeter nodules in th right upper,lef upper and in the lingular lobes.there ia also a 1.7x.4 cm node in the pretracheal area. In the ER he had a cbc which showed a wbc of 2.0, hgb 6.8gm,and platelets 32. Only ecchymosis at the site of the trauma from the fall. He has a h/o MDS for which he gets transfusion every 10-14 days. But no chemotherapy. He does not know his oncologist's name. he also has HTN, chronic renal disease and evidence of having had a CABG. Past Patient History - Past Medical History & Family History Past Medical History?: No - Past Social History Smoking Status: Former Smoker - CARDIAC Hx Cardiac Disorders: Yes Hx Congestive Heart Failure: Yes Hx Hypercholesterolemia: Yes Hx Hypertension: Yes - PULMONARY Hx Respiratory Disorders: Yes Hx Asthma: Yes Hx Chronic Obstructive Pulmonary Disease (COPD): Yes Hx Pneumonia: Yes - NEUROLOGICAL Hx Neurological Disorder: No - HEENT Hx HEENT Problems: Yes - RENAL Hx Chronic Kidney Disease: Yes - ENDOCRINE/METABOLIC Hx Endocrine Disorders: Yes Hx Hypothyroidism: Yes - HEMATOLOGICAL/ONCOLOGICAL Hx Blood Disorders: Yes Hx Anemia: Yes Hx Blood Transfusions: Yes Hx Leukemia: Yes - INTEGUMENTARY Hx Dermatological Problems: No - MUSCULOSKELETAL/RHEUMATOLOGICAL Hx Musculoskeletal Disorders: Yes Hx Falls: Yes - GASTROINTESTINAL Hx Gastrointestinal Disorders: No - GENITOURINARY/GYNECOLOGICAL Hx Genitourinary Disorders: Yes Hx Prostate Problems: Yes - PSYCHIATRIC Hx Psychophysiologic Disorder: No Hx Substance Use: No - SURGICAL HISTORY Hx Coronary Artery Bypass Graft: Yes - ANESTHESIA Hx Anesthesia: Yes Hx Anesthesia Reactions: No Hx Malignant Hyperthermia: No Has any member of the family had a problem w/ anesthesia?: No Meds Allergies/Adverse Reactions: Allergies Allergy/AdvReac Type Severity Reaction Status Date / Time No Known Allergies Allergy Verified 11/05/17 12:31 - Medications Medications: Current Medications Albuterol/Ipratropium (Duoneb 3 Mg/0.5 Mg (3 Ml) Ud) 3 ml INH QID PRN PRN Reason: Shortness of Breath Albuterol/Ipratropium (Duoneb 3 Mg/0.5 Mg (3 Ml) Ud) 3 ml INH RQ4 [facility] Last Admin: 11/06/17 08:06 Dose: 3 ml Allopurinol (Zyloprim) 100 mg PO HS [facility] Amlodipine Besylate (Norvasc) 5 mg PO HS [facility] Last Admin: 11/05/17 23:56 Dose: 5 mg Aspirin (Aspirin Chewable) 81 mg PO DAILY [facility] Last Admin: 11/06/17 08:18 Dose: 81 mg Atorvastatin Calcium (Lipitor) 20 mg PO HS [facility] Last Admin: 11/05/17 23:59 Dose: 20 mg Calcitriol (Rocaltrol) 0.25 mcg PO DAILY [facility] Last Admin: 11/06/17 08:16 Dose: 0.25 mcg Carvedilol (Coreg) 12.5 mg PO Q12 [facility] Last Admin: 11/06/17 08:17 Dose: 12.5 mg Cholecalciferol (Vitamin D) 1,000 intlu PO DAILY [facility] Last Admin: 11/06/17 08:18 Dose: 1,000 intlu Citalopram Hydrobromide (Celexa) 40 mg PO DAILY [facility] Finasteride (Proscar) 5 mg PO HS [facility] Last Admin: 11/05/17 23:56 Dose: 5 mg Gabapentin (Neurontin) 300 mg PO Q12 [facility] Last Admin: 11/06/17 08:15 Dose: 300 mg Hydrochlorothiazide (Microzide) 12.5 mg PO DAILY [facility] Last Admin: 11/06/17 08:16 Dose: 12.5 mg Piperacillin Sod/Tazobactam (Sod 2.25 gm/ Sodium Chloride) 100 mls @ 100 mls/ hr IVPB Q6 [facility] PRN Reason: Protocol Last Admin: 11/06/17 04:14 Dose: 100 mls/hr Isosorbide Mononitrate (Imdur Er) 120 mg PO [facility] Last Admin: 11/05/17 23:57 Dose: 120 mg Levothyroxine Sodium (Synthroid) 88 mcg PO DAILY@0630 [facility] Last Admin: 11/06/17 06:42 Dose: 88 mcg Lisinopril (Zestril) 20 mg PO Q12 [facility] Last Admin: 11/06/17 08:19 Dose: 20 mg Methylprednisolone (Solu-Medrol) 125 mg IV Q8 [facility] Last Admin: 11/06/17 08:15 Dose: 125 mg Nitroglycerin (Nitrostat Sl Tab) 0.4 mg SL Q5MIN PRN PRN Reason: chest pain Pantoprazole Sodium (Protonix Ec Tab) 40 mg PO BID [facility] Last Admin: 11/06/17 08:14 Dose: 40 mg Promethazine HCl/Codeine (Phenergan/Codeine Oral Syrup) 10 ml PO Q6 PRN PRN Reason: Cough Fluticasone/Salmeterol (Advair Diskus 250/50) 1 puff IH Q12 [facility] Last Admin: 11/06/17 08:14 Dose: 1 puff Terazosin HCl (Hytrin) 10 mg PO HS [facility] Last Admin: 11/05/17 23:58 Dose: 10 mg Zolpidem Tartrate (Ambien) 5 mg PO [facility] Last Admin: 11/06/17 02:37 Dose: 5 mg Physical Exam - Additional Findings Additional findings: physical exam; pt is asleep. Does not answer too many questions when woken up. Neck; Supple , no adenopathy Chest; Clear, no rales or rhonchi Heart; RSR, no murmur Results - Vital Signs Recent Vital Signs: Last Vital Signs Temp 98 F 11/06/17 08:32 Pulse 86 11/06/17 08:32 Resp 18 11/06/17 08:32 BP 101/68 11/06/17 08:32 Pulse Ox 96 11/06/17 08:32 - Labs Result Diagrams: 11/06/17 06:16 11/06/17 06:16 Labs: Laboratory Results - last 24 hr 11/05/17 11/05/17 11/05/17 13:30 13:30 13:30 WBC 2.0 L* D RBC 2.27 L Hgb 6.8 L D Hct 20.5 L MCV 90.1 MCH 29.9 MCHC 33.2 RDW 14.5 Plt Count 32 L D MPV 12.3 H Neut % (Auto) 53.1 Lymph % (Auto) 22.2 [place] % (Auto) 23.7 H Eos % (Auto) 0.4 Baso % (Auto) 0.6 Neut # (Auto) 1.0 L Lymph # (Auto) 0.4 L [place] # (Auto) 0.5 Eos # (Auto) 0.0 Baso # (Auto) 0.0 Neutrophils % (Manual) 55 Lymphocytes % (Manual) 20 Reactive Lymphs % 1 H Monocytes % (Manual) 24 H Platelet Estimate Decreased L Large Platelets Present Hypochromasia (manual) Slight PT Cancelled INR Cancelled APTT Cancelled Sodium 137 Potassium 3.9 Chloride 102 Carbon Dioxide 25 Anion Gap 14 BUN 50 H Creatinine 2.1 H Est GFR ( Amer) 37 Est GFR (Non-Af Amer) 31 Random Glucose 91 Calcium 8.2 L Total Bilirubin 0.6 AST 31 ALT 32 Alkaline Phosphatase 39 Total Protein 6.1 L Albumin 2.7 L Globulin 3.4 Albumin/Globulin Ratio 0.8 L Lipase 128 Blood Type Antibody Screen Antibody Identification Crossmatch BBK History Checked 11/05/17 11/05/17 11/05/17 13:30 15:40 15:40 WBC RBC Hgb Hct MCV MCH MCHC RDW Plt Count MPV Neut % (Auto) Lymph % (Auto) [place] % (Auto) Eos % (Auto) Baso % (Auto) Neut # (Auto) Lymph # (Auto) [place] # (Auto) Eos # (Auto) Baso # (Auto) Neutrophils % (Manual) Lymphocytes % (Manual) Reactive Lymphs % Monocytes % (Manual) Platelet Estimate Large Platelets Hypochromasia (manual) PT 13.9 H INR 1.3 H APTT 27.7 Sodium 136 Potassium 4.1 Chloride 104 Carbon Dioxide 22 Anion Gap 14 BUN 48 H Creatinine 2.0 H Est GFR ( Amer) 40 Est GFR (Non-Af Amer) 33 Random Glucose 86 Calcium 8.0 L Total Bilirubin 0.8 AST 35 ALT 30 Alkaline Phosphatase 34 L Total Protein 6.2 L Albumin 2.7 L Globulin 3.5 Albumin/Globulin Ratio 0.8 L Lipase Blood Type O POSITIVE Antibody Screen Positive Antibody Identification Anti Sakshi Crossmatch See Detail BBK History Checked Patient has bt 11/06/17 11/06/17 06:16 06:16 WBC 1.5 L* RBC 2.63 L Hgb 8.0 L Hct 23.5 L MCV 89.6 MCH 30.4 MCHC 34.0 RDW 14.0 Plt Count 37 L MPV Neut % (Auto) Lymph % (Auto) [place] % (Auto) Eos % (Auto) Baso % (Auto) Neut # (Auto) Lymph # (Auto) [place] # (Auto) Eos # (Auto) Baso # (Auto) Neutrophils % (Manual) Lymphocytes % (Manual) Reactive Lymphs % Monocytes % (Manual) Platelet Estimate Large Platelets Hypochromasia (manual) PT INR APTT Sodium 138 Potassium 4.1 Chloride 106 Carbon Dioxide 20 L Anion Gap 16 BUN 51 H Creatinine 2.1 H Est GFR ( Amer) 37 Est GFR (Non-Af Amer) 31 Random Glucose 138 H Calcium 8.1 L Total Bilirubin 0.7 AST 31 ALT 31 Alkaline Phosphatase 41 Total Protein 5.9 L Albumin 2.7 L Globulin 3.3 Albumin/Globulin Ratio 0.8 L Lipase Blood Type Antibody Screen Antibody Identification Crossmatch BBK History Checked Assessment & Plan - Assessment and Plan (Free Text) Assessment: Impression; Pt with MDS needing frequent transfusions. He also has a ? mass in the upper lobe of the right lung., with several nodules in all the lobes of the lung ? malignant CRD. Plan: Plan; Pt was transfused 1 unit of platelets and now being transfused 2 units of packed cells. When he is a little better would suggest a PET scan to see if all the findings in the lung are malignant
--- NOTE | 2017-11-06 10:13 | CP.PCM.PN ---
Subjective - Date & Time of Evaluation Date of Evaluation: 11/06/17 Time of Evaluation: 10:10 - Subjective Subjective: General Surgery Progress Note for Dr. Ramires 77 year old male patient with a PMHx of MS, Leukemia, HTN, Renal failure and chronic transfusion requirement was seen this morning after he presented to the hospital for a fall. Patient is AAOx3 and is in NAD. Reports very mild pain on his belly today. Denies of any recent F/N/v/C/SOB/CP/headache/diarrhea. Denies of any other complains this morning. Objective - Vital Signs/Intake and Output Vital Signs (last 24 hours): Temp Pulse Resp BP Pulse Ox 98 F 86 18 101/68 96 11/06/17 08:32 11/06/17 08:32 11/06/17 08:32 11/06/17 08:32 11/06/17 08:32 - Medications Medications: Current Medications Albuterol/Ipratropium (Duoneb 3 Mg/0.5 Mg (3 Ml) Ud) 3 ml INH QID PRN PRN Reason: Shortness of Breath Albuterol/Ipratropium (Duoneb 3 Mg/0.5 Mg (3 Ml) Ud) 3 ml INH RQ4 [facility] Last Admin: 11/06/17 08:06 Dose: 3 ml Allopurinol (Zyloprim) 100 mg PO HS [facility] Amlodipine Besylate (Norvasc) 5 mg PO HS [facility] Last Admin: 11/05/17 23:56 Dose: 5 mg Aspirin (Aspirin Chewable) 81 mg PO DAILY [facility] Last Admin: 11/06/17 08:18 Dose: 81 mg Atorvastatin Calcium (Lipitor) 20 mg PO HS [facility] Last Admin: 11/05/17 23:59 Dose: 20 mg Calcitriol (Rocaltrol) 0.25 mcg PO DAILY [facility] Last Admin: 11/06/17 08:16 Dose: 0.25 mcg Carvedilol (Coreg) 12.5 mg PO Q12 [facility] Last Admin: 11/06/17 08:17 Dose: 12.5 mg Cholecalciferol (Vitamin D) 1,000 intlu PO DAILY [facility] Last Admin: 11/06/17 08:18 Dose: 1,000 intlu Citalopram Hydrobromide (Celexa) 40 mg PO DAILY [facility] Finasteride (Proscar) 5 mg PO HS [facility] Last Admin: 11/05/17 23:56 Dose: 5 mg Gabapentin (Neurontin) 300 mg PO Q12 [facility] Last Admin: 11/06/17 08:15 Dose: 300 mg Hydrochlorothiazide (Microzide) 12.5 mg PO DAILY [facility] Last Admin: 11/06/17 08:16 Dose: 12.5 mg Piperacillin Sod/Tazobactam (Sod 2.25 gm/ Sodium Chloride) 100 mls @ 100 mls/ hr IVPB Q6 [facility] PRN Reason: Protocol Last Admin: 11/06/17 09:18 Dose: 100 mls/hr Isosorbide Mononitrate (Imdur Er) 120 mg PO [facility] Last Admin: 11/05/17 23:57 Dose: 120 mg Levothyroxine Sodium (Synthroid) 88 mcg PO DAILY@0630 [facility] Last Admin: 11/06/17 06:42 Dose: 88 mcg Lisinopril (Zestril) 20 mg PO Q12 [facility] Last Admin: 11/06/17 08:19 Dose: 20 mg Methylprednisolone (Solu-Medrol) 125 mg IV Q8 [facility] Last Admin: 11/06/17 08:15 Dose: 125 mg Nitroglycerin (Nitrostat Sl Tab) 0.4 mg SL Q5MIN PRN PRN Reason: chest pain Pantoprazole Sodium (Protonix Ec Tab) 40 mg PO BID [facility] Last Admin: 11/06/17 08:14 Dose: 40 mg Promethazine HCl/Codeine (Phenergan/Codeine Oral Syrup) 10 ml PO Q6 PRN PRN Reason: Cough Fluticasone/Salmeterol (Advair Diskus 250/50) 1 puff IH Q12 [facility] Last Admin: 11/06/17 08:14 Dose: 1 puff Terazosin HCl (Hytrin) 10 mg PO [facility] Last Admin: 11/05/17 23:58 Dose: 10 mg Zolpidem Tartrate (Ambien) 5 mg PO [facility] Last Admin: 11/06/17 02:37 Dose: 5 mg - Labs Labs: 11/06/17 06:16 11/06/17 06:16 PT 13.9 Seconds (9.8-13.1) H 11/05/17 15:40 INR 1.3 (0.9-1.2) H 11/05/17 15:40 APTT 27.7 Seconds (25.6-37.1) 11/05/17 15:40 - Constitutional Appears: Well, Non-toxic, No Acute Distress - Respiratory Exam Respiratory Exam: NORMAL BREATHING PATTERN - GI/Abdominal Exam GI & Abdominal Exam: Soft, Tenderness (mild tenderness with ecchymosis) - Extremities Exam Extremities Exam: Normal Inspection - Neurological Exam Neurological Exam: Alert, Awake, Oriented x3 - Psychiatric Exam Psychiatric exam: Normal Affect, Normal Mood Assessment and Plan - Assessment and Plan (Free Text) Assessment: 77 year old male patient s/p fall with abdominal wall ecchymosis and anemia Plan: Patient seen and evaluated MIKHAIL bandage to RUE echymosis Patient is stable from surgical standpoint No surgical intervention at this time Surgical team to sign off on this patient - please re-consult if needed
[2017-11-06] MEDS: Bacitracin OINT 15GM TOP SCH (16:45)
--- NOTE | 2017-11-06 18:09 | CARD ---
APPROVED REPORT EKG Measurement Heart [id number] <Conclusion> Normal sinus rhythm Possible Left atrial enlargement Nonspecific ST and T wave abnormality Abnormal ECG
[2017-11-07] MEDS: Albuterol-Ipratrop 3 mg / 0.5 (3 ml) UD INH SCH ×3 (04:43→11:21)
[2017-11-07 06:13] LABS: HEMOGLOBIN 9.8 g/dL (12.0-18.0); MEAN CELL VOLUME 87.6 fl (80.0-94.0); MEAN CORPUSCULAR HEMOGLOBIN 30.1 pg (27.0-31.0); MEAN CORPUSCULAR HGB CONC 34.4 g/dL (33.0-37.0); RBC 3.26 Mil/uL (4.40-5.90); RED CELL DISTRIBUTION WIDTH 13.9 % (11.5-14.5); WHITE BLOOD COUNT 4.2 K/uL (4.8-10.8)
[2017-11-07 06:34] LABS: CALCIUM 8.1 mg/dL (8.4-10.2)
[2017-11-07] MEDS: Levothyroxine 88 MCG TAB PO SCH (07:01)
[2017-11-07] MEDS: Fluticasone-Salmeterol 250-50mcg Diskus IH SCH ×2 (08:21→22:10)
[2017-11-07] MEDS: Bacitracin OINT 15GM TOP SCH ×2 (08:21→16:13)
[2017-11-07] MEDS: Pantoprazole 40 mg EC Tab PO SCH ×2 (08:22→16:19)
[2017-11-07] MEDS: Cholecalciferol 1,000 INTLU TAB PO SCH (08:24)
--- NOTE | 2017-11-07 12:31 | CP.PCM.CON ---
History of Present Illness - History of Present Illness History of Present Illness: This 77 yeqar old male with a H/O MDS/leukemia (followed at [facility]) had an apparent fall OOB the day prior to admission with chest and abdominal trauma. He had areas of bruising and pain which prompted his presentation to the ER. A chest x-ray showed right upper lobe infiltrate and a CT chest was requested. A right upper lobe pneumonic infiltrated with air bronchogram was seen as well as nodular densities in both lungs (a RUL nodule was the most troubling in appearance). He was started on antibiotic therapy at that time and related feeling slightly better today. He has a congested cough, but is unable to expectorate. He has significant leukopenia as well as anemia and thrombocytopenia for which he is being transfused. A Hematology consult has also been performed. He is a former cigarette smoker with a prior history of pneumonia. Past Patient History - Past Medical History & Family History Past Medical History?: No Pertinent Family History: Father-lung cancer - Past Social History Smoking Status: Former Smoker Chewing Tobacco Use: No Cigar Use: No Alcohol: None Drugs: Denies Home Situation {Lives}: With Family - CARDIAC Hx Congestive Heart Failure: Yes Hx Hypertension: Yes Other/Comment: CABG 10-12 years ago - PULMONARY Hx Chronic Obstructive Pulmonary Disease (COPD): Yes Hx Pneumonia: Yes - NEUROLOGICAL Other/Comment: Near syncope. - HEENT Hx HEENT Problems: Yes - RENAL Hx Chronic Kidney Disease: Yes - ENDOCRINE/METABOLIC Hx Hypothyroidism: Yes - HEMATOLOGICAL/ONCOLOGICAL Hx Anemia: Yes Hx Blood Transfusions: Yes Hx Leukemia: Yes - INTEGUMENTARY Hx Dermatological Problems: No - MUSCULOSKELETAL/RHEUMATOLOGICAL Hx Falls: Yes - GASTROINTESTINAL Hx Gastrointestinal Disorders: No - GENITOURINARY/GYNECOLOGICAL Hx Prostate Problems: Yes - PSYCHIATRIC Hx Psychophysiologic Disorder: No Hx Substance Use: No - SURGICAL HISTORY Hx Coronary Artery Bypass Graft: Yes - ANESTHESIA Hx Anesthesia: Yes Hx Anesthesia Reactions: No Hx Malignant Hyperthermia: No Has any member of the family had a problem w/ anesthesia?: No Meds Allergies/Adverse Reactions: Allergies Allergy/AdvReac Type Severity Reaction Status Date / Time No Known Allergies Allergy Verified 11/05/17 12:31 - Medications Medications: Current Medications Albuterol/Ipratropium (Duoneb 3 Mg/0.5 Mg (3 Ml) Ud) 3 ml INH QID PRN PRN Reason: Shortness of Breath Albuterol/Ipratropium (Duoneb 3 Mg/0.5 Mg (3 Ml) Ud) 3 ml INH RQ4 [facility] Last Admin: 11/07/17 11:21 Dose: 3 ml Allopurinol (Zyloprim) 100 mg PO HS [facility] Last Admin: 11/06/17 21:41 Dose: 100 mg Amlodipine Besylate (Norvasc) 5 mg PO HS [facility] Last Admin: 11/06/17 21:24 Dose: 5 mg Aspirin (Aspirin Chewable) 81 mg PO DAILY [facility] Last Admin: 11/06/17 08:18 Dose: 81 mg Atorvastatin Calcium (Lipitor) 20 mg PO HS [facility] Last Admin: 11/06/17 21:25 Dose: 20 mg Bacitracin (Bacitracin Oint) 1 applic TOP BID [facility] Last Admin: 11/07/17 08:21 Dose: 1 applic Calcitriol (Rocaltrol) 0.25 mcg PO DAILY [facility] Last Admin: 11/07/17 08:22 Dose: 0.25 mcg Carvedilol (Coreg) 12.5 mg PO Q12 [facility] Last Admin: 11/07/17 08:23 Dose: 12.5 mg Cholecalciferol (Vitamin D) 1,000 intlu PO DAILY [facility] Last Admin: 11/07/17 08:24 Dose: 1,000 intlu Citalopram Hydrobromide (Celexa) 40 mg PO DAILY [facility] Finasteride (Proscar) 5 mg PO HS [facility] Last Admin: 11/06/17 21:23 Dose: 5 mg Furosemide (Lasix) 40 mg IV ONCE ONE Stop: 11/07/17 16:10 Last Admin: 11/06/17 16:42 Dose: 40 mg Gabapentin (Neurontin) 300 mg PO Q12 [facility] Last Admin: 11/07/17 08:22 Dose: 300 mg Hydrochlorothiazide (Microzide) 12.5 mg PO DAILY [facility] Last Admin: 11/07/17 08:22 Dose: 12.5 mg Piperacillin Sod/Tazobactam (Sod 2.25 gm/ Sodium Chloride) 100 mls @ 100 mls/ hr IVPB Q6 [facility] PRN Reason: Protocol Last Admin: 11/07/17 09:12 Dose: 100 mls/hr Isosorbide Mononitrate (Imdur Er) 120 mg PO [facility] Last Admin: 11/06/17 21:27 Dose: 120 mg Levothyroxine Sodium (Synthroid) 88 mcg PO DAILY@0630 [facility] Last Admin: 11/07/17 07:01 Dose: 88 mcg Lisinopril (Zestril) 20 mg PO Q12 [facility] Last Admin: 11/07/17 08:24 Dose: 20 mg Nitroglycerin (Nitrostat Sl Tab) 0.4 mg SL Q5MIN PRN PRN Reason: chest pain Pantoprazole Sodium (Protonix Ec Tab) 40 mg PO BID [facility] Last Admin: 11/07/17 08:22 Dose: 40 mg Promethazine HCl/Codeine (Phenergan/Codeine Oral Syrup) 10 ml PO Q6 PRN PRN Reason: Cough Fluticasone/Salmeterol (Advair Diskus 250/50) 1 puff IH Q12 [facility] Last Admin: 11/07/17 08:21 Dose: 1 puff Terazosin HCl (Hytrin) 10 mg PO [facility] Last Admin: 11/06/17 21:25 Dose: 10 mg Zolpidem Tartrate (Ambien) 5 mg PO [facility] Last Admin: 11/06/17 22:22 Dose: 5 mg Physical Exam - Additional Findings Additional findings: Well nourished, well developed male in no acute distress. Awake and alert, oriented x 3. Recall is diminished. Scattered areas of ecchymosis over UE's and shoulder, LUQ and left lower chest wall.. Speech is fluent, moving all extremities. Neck is supple and trachea midline. No visible JVD. No palpable cervical or supraclavicular adenopathy. No dullness on chest percussion, equal expansion. Coarse rhonchi are present in the right upper lung field. No audible wheezing or bronchial breathing. Heart sounds slightly distant, regular rhythm. Abdomen soft with positive bowel sounds. Bruied left flank, LUQ. No dependant edema, no cyanosis. Results - Vital Signs Recent Vital Signs: Last Vital Signs Temp 98.1 F 11/07/17 12:00 Pulse 65 11/07/17 12:00 Resp 18 11/07/17 12:00 BP 164/67 H 11/07/17 12:00 Pulse Ox 98 11/07/17 12:00 - Labs Result Diagrams: 11/09/17 04:25 11/07/17 04:51 Labs: Laboratory Results - last 24 hr 11/05/17 11/06/17 11/07/17 13:30 16:45 04:51 WBC 4.2 L D RBC 3.26 L Hgb 9.8 L Hct 28.6 L MCV 87.6 D MCH 30.1 MCHC 34.4 RDW 13.9 Plt Count 35 L Sodium Potassium Chloride Carbon Dioxide Anion Gap BUN Creatinine Est GFR ( Amer) Est GFR (Non-Af Amer) Random Glucose Calcium NT-Pro-B Natriuret Pep 61102 H Blood Type O POSITIVE Antibody Screen Positive Antibody Identification Anti c Crossmatch See Detail BBK History Checked Patient has bt 11/07/17 04:51 WBC RBC Hgb Hct MCV MCH MCHC RDW Plt Count Sodium 138 Potassium 3.5 L Chloride 103 Carbon Dioxide 22 Anion Gap 17 BUN 60 H Creatinine 2.4 H Est GFR ( Amer) 32 Est GFR (Non-Af Amer) 27 Random Glucose 123 H Calcium 8.1 L NT-Pro-B Natriuret Pep Blood Type Antibody Screen Antibody Identification Crossmatch BBK History Checked Assessment & Plan (1) Cough with hemoptysis Status: Acute Priority: High Comment: Although possibly related to infectious process in association with low platelets, neoplastic disease remains a consideration. (2) Pneumonia Status: Acute Priority: High Comment: Primarily RUL, but other smaller 'nodules' appear to be consistent with infectious process as well. (3) COPD (chronic obstructive pulmonary disease) Status: Chronic Priority: High Comment: Switch to a more selective beta-enrrique to avoid conflict with beta- agonist. - Assessment and Plan (Free Text) Plan: Continue present antibiotic regimen. Screen sputum for cytology. Obtain sputum for routine culture. Follow up with further imaging in 2-3 weeks (depending on the above results). - Date & Time Date: 11/07/17 Time: 12:30
[2017-11-07] MEDS ORDERED: Sodium Chloride 3% for Inhalation 4 ML VIAL.NEB IH PRN (12:34)
--- NOTE | 2017-11-07 14:21 | CP.PCM.PN ---
Subjective - Date & Time of Evaluation Date of Evaluation: 11/07/17 Time of Evaluation: 14:19 - Subjective Subjective: Pt is awake and alert but gets a little confused when asked about his MDS, who his oncologist is and if he wqas ever given chemotherapy Post [id number] the HGB is 9.8 gms and the wbc 4.1. Platelets are still a little low at 32K. Objective - Vital Signs/Intake and Output Vital Signs (last 24 hours): Temp Pulse Resp BP Pulse Ox 98.1 F 65 18 164/67 H 95 11/07/17 12:00 11/07/17 12:00 11/07/17 12:00 11/07/17 12:00 11/07/17 12:37 Intake and Output: 11/07/17 11/07/17 06:59 18:59 Intake Total 700 Output Total 1200 Balance -500 - Medications Medications: Current Medications Albuterol Sulfate (Albuterol 0.083% Inhal [place] (2.5 Mg/3 Ml) Ud) 2.5 mg INH RQ4 PRN PRN Reason: Shortness of Breath Allopurinol (Zyloprim) 100 mg PO HS [facility] Last Admin: 11/06/17 21:41 Dose: 100 mg Amlodipine Besylate (Norvasc) 5 mg PO HS [facility] Last Admin: 11/06/17 21:24 Dose: 5 mg Aspirin (Aspirin Chewable) 81 mg PO DAILY [facility] Last Admin: 11/06/17 08:18 Dose: 81 mg Atorvastatin Calcium (Lipitor) 20 mg PO HS [facility] Last Admin: 11/06/17 21:25 Dose: 20 mg Bacitracin (Bacitracin Oint) 1 applic TOP BID [facility] Last Admin: 11/07/17 08:21 Dose: 1 applic Calcitriol (Rocaltrol) 0.25 mcg PO DAILY [facility] Last Admin: 11/07/17 08:22 Dose: 0.25 mcg Carvedilol (Coreg) 12.5 mg PO Q12 [facility] Last Admin: 11/07/17 08:23 Dose: 12.5 mg Cholecalciferol (Vitamin D) 1,000 intlu PO DAILY [facility] Last Admin: 11/07/17 08:24 Dose: 1,000 intlu Citalopram Hydrobromide (Celexa) 40 mg PO DAILY [facility] Finasteride (Proscar) [address] [facility] Last Admin: 11/06/17 21:23 Dose: 5 mg Furosemide (Lasix) 40 mg IV ONCE ONE Stop: 11/07/17 16:10 Last Admin: 11/06/17 16:42 Dose: 40 mg Gabapentin (Neurontin) 300 mg PO Q12 [facility] Last Admin: 11/07/17 08:22 Dose: 300 mg Hydrochlorothiazide (Microzide) 12.5 mg PO DAILY [facility] Last Admin: 11/07/17 08:22 Dose: 12.5 mg Piperacillin Sod/Tazobactam (Sod 2.25 gm/ Sodium Chloride) 100 mls @ 100 mls/ hr IVPB Q6 [facility] PRN Reason: Protocol Last Admin: 11/07/17 09:12 Dose: 100 mls/hr Ipratropium [place] (Atrovent) 0.5 mg IH RQID [facility] Isosorbide Mononitrate (Imdur Er) [address] [facility] Last Admin: 11/06/17 21:27 Dose: 120 mg Levothyroxine Sodium (Synthroid) 88 mcg PO DAILY@0630 [facility] Last Admin: 11/07/17 07:01 Dose: 88 mcg Lisinopril (Zestril) 20 mg PO Q12 [facility] Last Admin: 11/07/17 08:24 Dose: 20 mg Nitroglycerin (Nitrostat Sl Tab) 0.4 mg SL Q5MIN PRN PRN Reason: chest pain Pantoprazole Sodium (Protonix Ec Tab) 40 mg PO BID [facility] Last Admin: 11/07/17 08:22 Dose: 40 mg Promethazine HCl/Codeine (Phenergan/Codeine Oral Syrup) 10 ml PO Q6 PRN PRN Reason: Cough Fluticasone/Salmeterol (Advair Diskus 250/50) 1 puff IH Q12 [facility] Last Admin: 11/07/17 08:21 Dose: 1 puff Terazosin HCl (Hytrin) [address] [facility] Last Admin: 11/06/17 21:25 Dose: 10 mg Zolpidem Tartrate (Ambien) [address] [facility] Last Admin: 11/06/17 22:22 Dose: 5 mg - Labs Labs: 11/07/17 04:51 11/07/17 04:51 PT 13.9 Seconds (9.8-13.1) H 11/05/17 15:40 INR 1.3 (0.9-1.2) H 11/05/17 15:40 APTT 27.7 Seconds (25.6-37.1) 11/05/17 15:40
[2017-11-07] MEDS: Promethazine/Cod 6.25mg-10mg/5ml Syr UD PO PRN ×2 (14:25→22:03)
[2017-11-07] MEDS: Ipratropium 0.02% Inhal Soln (0.5 mg/2.5 ml) UD IH SCH ×2 (16:43→20:25)
[2017-11-07] MEDS: Albuterol 0.083% Inhal Sol (2.5 mg/3 mL) UD INH PRN (23:47)
[2017-11-08] MEDS: Albuterol 0.083% Inhal Sol (2.5 mg/3 mL) UD INH PRN (04:57)
[2017-11-08] MEDS: Levothyroxine 88 MCG TAB PO SCH (06:41)
[2017-11-08] MEDS: Ipratropium 0.02% Inhal Soln (0.5 mg/2.5 ml) UD IH SCH ×4 (07:42→19:12)
[2017-11-08] MEDS: Fluticasone-Salmeterol 250-50mcg Diskus IH SCH ×2 (09:00→22:28)
[2017-11-08] MEDS: Pantoprazole 40 mg EC Tab PO SCH ×2 (09:00→17:21)
[2017-11-08] MEDS: Cholecalciferol 1,000 INTLU TAB PO SCH (09:02)
[2017-11-08] MEDS: Bacitracin OINT 15GM TOP SCH ×2 (09:02→16:40)
--- NOTE | 2017-11-08 09:04 | CP.PCM.PN ---
Subjective - Date & Time of Evaluation Date of Evaluation: 11/08/17 Time of Evaluation: 09:02 - Subjective Subjective: Pt is doing better, with lesser respiratory symptoms.CBC has been stable as well. Will repeat a cbc tomorrow am. Objective - Vital Signs/Intake and Output Vital Signs (last 24 hours): Temp Pulse Resp BP Pulse Ox 98.3 F 63 18 160/72 H 94 L 11/08/17 07:44 11/08/17 07:44 11/08/17 07:44 11/08/17 07:44 11/08/17 07:44 Intake and Output: 11/08/17 11/08/17 06:59 18:59 Intake Total 600 Output Total 1000 Balance -400 - Medications Medications: Current Medications Albuterol Sulfate (Albuterol 0.083% Inhal [place] (2.5 Mg/3 Ml) Ud) 2.5 mg INH RQ4 PRN PRN Reason: Shortness of Breath Last Admin: 11/08/17 04:57 Dose: 2.5 mg Allopurinol (Zyloprim) 100 mg PO HS [facility] Last Admin: 11/07/17 22:06 Dose: 100 mg Amlodipine Besylate (Norvasc) 5 mg PO [facility] Last Admin: 11/07/17 22:09 Dose: 5 mg Aspirin (Aspirin Chewable) 81 mg PO DAILY [facility] Last Admin: 11/06/17 08:18 Dose: 81 mg Atorvastatin Calcium (Lipitor) 20 mg PO HS [facility] Last Admin: 11/07/17 22:09 Dose: 20 mg Bacitracin (Bacitracin Oint) 1 applic TOP BID [facility] Last Admin: 11/07/17 16:13 Dose: 1 applic Calcitriol (Rocaltrol) 0.25 mcg PO DAILY [facility] Last Admin: 11/07/17 08:22 Dose: 0.25 mcg Carvedilol (Coreg) 12.5 mg PO Q12 [facility] Last Admin: 11/07/17 22:10 Dose: 12.5 mg Cholecalciferol (Vitamin D) 1,000 intlu PO DAILY [facility] Last Admin: 11/07/17 08:24 Dose: 1,000 intlu Citalopram Hydrobromide (Celexa) 40 mg PO DAILY [facility] Finasteride (Proscar) 5 mg PO [facility] Last Admin: 11/07/17 22:06 Dose: 5 mg Gabapentin (Neurontin) 300 mg PO Q12 [facility] Last Admin: 11/07/17 22:06 Dose: 300 mg Hydrochlorothiazide (Microzide) 12.5 mg PO DAILY [facility] Last Admin: 11/07/17 08:22 Dose: 12.5 mg Piperacillin Sod/Tazobactam (Sod 2.25 gm/ Sodium Chloride) 100 mls @ 100 mls/ hr IVPB Q6 [facility] PRN Reason: Protocol Last Admin: 11/08/17 04:48 Dose: 100 mls/hr Ipratropium [place] (Atrovent) 0.5 mg IH RQID [facility] Last Admin: 11/08/17 07:42 Dose: 0.5 mg Isosorbide Mononitrate (Imdur Er) 120 mg PO HS [facility] Last Admin: 11/07/17 22:08 Dose: 120 mg Levothyroxine Sodium (Synthroid) 88 mcg PO DAILY@0630 [facility] Last Admin: 11/08/17 06:41 Dose: 88 mcg Lisinopril (Zestril) 20 mg PO Q12 [facility] Last Admin: 11/07/17 22:16 Dose: 20 mg Nitroglycerin (Nitrostat Sl Tab) 0.4 mg SL Q5MIN PRN PRN Reason: chest pain Pantoprazole Sodium (Protonix Ec Tab) 40 mg PO BID [facility] Last Admin: 11/07/17 16:19 Dose: 40 mg Promethazine HCl/Codeine (Phenergan/Codeine Oral Syrup) 10 ml PO Q6 PRN PRN Reason: Cough Last Admin: 11/07/17 22:03 Dose: 10 ml Fluticasone/Salmeterol (Advair Diskus 250/50) 1 puff IH Q12 [facility] Last Admin: 11/07/17 22:10 Dose: 1 puff Terazosin HCl (Hytrin) 10 mg PO HS [facility] Last Admin: 11/07/17 22:09 Dose: 10 mg Zolpidem Tartrate (Ambien) 10 mg PO [facility] Last Admin: 11/07/17 22:03 Dose: 10 mg - Labs Labs: 11/07/17 04:51 11/07/17 04:51 PT 13.9 Seconds (9.8-13.1) H 11/05/17 15:40 INR 1.3 (0.9-1.2) H 11/05/17 15:40 APTT 27.7 Seconds (25.6-37.1) 11/05/17 15:40
[2017-11-08 15:34] LABS: HEMOGLOBIN 9.6 g/dL (12.0-18.0); MEAN CELL VOLUME 88.3 fl (80.0-94.0); MEAN CORPUSCULAR HEMOGLOBIN 29.8 pg (27.0-31.0); MEAN CORPUSCULAR HGB CONC 33.8 g/dL (33.0-37.0); RBC 3.22 Mil/uL (4.40-5.90); RED CELL DISTRIBUTION WIDTH 14.6 % (11.5-14.5); WHITE BLOOD COUNT 2.6 K/uL (4.8-10.8)
[2017-11-08] MEDS: Promethazine/Cod 6.25mg-10mg/5ml Syr UD PO PRN (19:59)
--- NOTE | 2017-11-08 23:58 | CP.PCM.PN ---
Subjective - Date & Time of Evaluation Date of Evaluation: 11/07/17 Time of Evaluation: 09:30 - Subjective Subjective: Patient still has SOB and cough. Noted stable CBC,Has no fever Still with low platelet 35 and Hgb 9.8 but both indices are stable Objective - Vital Signs/Intake and Output Vital Signs (last 24 hours): Temp Pulse Resp BP Pulse Ox 98 F 66 20 179/72 H 96 11/08/17 19:22 11/08/17 21:20 11/08/17 19:22 11/08/17 21:20 11/08/17 19:22 - Medications Medications: Current Medications Acetaminophen (Tylenol 325mg Tab) 650 mg PO Q6 PRN PRN Reason: Pain, Mild (1-3) Last Admin: 11/08/17 19:59 Dose: 650 mg Albuterol Sulfate (Albuterol 0.083% Inhal Zonia (2.5 Mg/3 Ml) Ud) 2.5 mg INH RQ4 PRN PRN Reason: Shortness of Breath Last Admin: 11/08/17 04:57 Dose: 2.5 mg Allopurinol (Zyloprim) 100 mg PO HS [facility] Last Admin: 11/07/17 22:06 Dose: 100 mg Amlodipine Besylate (Norvasc) 5 mg PO HS [facility] Last Admin: 11/08/17 21:20 Dose: 5 mg Aspirin (Aspirin Chewable) 81 mg PO DAILY [facility] Last Admin: 11/06/17 08:18 Dose: 81 mg Atorvastatin Calcium (Lipitor) 20 mg PO HS [facility] Last Admin: 11/08/17 21:18 Dose: 20 mg Bacitracin (Bacitracin Oint) 1 applic TOP BID [facility] Last Admin: 11/08/17 16:40 Dose: 1 applic Calcitriol (Rocaltrol) 0.25 mcg PO DAILY [facility] Last Admin: 11/08/17 09:02 Dose: 0.25 mcg Carvedilol (Coreg) 12.5 mg PO Q12 [facility] Last Admin: 11/08/17 21:19 Dose: 12.5 mg Cholecalciferol (Vitamin D) 1,000 intlu PO DAILY [facility] Last Admin: 11/08/17 09:02 Dose: 1,000 intlu Citalopram Hydrobromide (Celexa) 40 mg PO DAILY [facility] Finasteride (Proscar) 5 mg PO HS [facility] Last Admin: 11/08/17 21:20 Dose: 5 mg Gabapentin (Neurontin) 300 mg PO Q12 [facility] Last Admin: 11/08/17 21:18 Dose: 300 mg Hydrochlorothiazide (Microzide) 12.5 mg PO DAILY [facility] Last Admin: 11/08/17 09:01 Dose: 12.5 mg Piperacillin Sod/Tazobactam (Sod 2.25 gm/ Sodium Chloride) 100 mls @ 100 mls/ hr IVPB Q6 [facility] PRN Reason: Protocol Last Admin: 11/08/17 16:39 Dose: 100 mls/hr Ipratropium [place] (Atrovent) 0.5 mg IH RQID [facility] Last Admin: 11/08/17 19:12 Dose: 0.5 mg Isosorbide Mononitrate (Imdur Er) 120 mg PO [facility] Last Admin: 11/08/17 21:19 Dose: 120 mg Levothyroxine Sodium (Synthroid) 88 mcg PO DAILY@0630 [facility] Last Admin: 11/08/17 06:41 Dose: 88 mcg Lisinopril (Zestril) 20 mg PO Q12 [facility] Last Admin: 11/08/17 21:19 Dose: 20 mg Nitroglycerin (Nitrostat Sl Tab) 0.4 mg SL Q5MIN PRN PRN Reason: chest pain Pantoprazole Sodium (Protonix Ec Tab) 40 mg PO BID [facility] Last Admin: 11/08/17 17:21 Dose: 40 mg Fluticasone/Salmeterol (Advair Diskus 250/50) 1 puff IH Q12 [facility] Last Admin: 11/08/17 22:28 Dose: 1 puff Terazosin HCl (Hytrin) 10 mg PO [facility] Last Admin: 11/08/17 21:18 Dose: 10 mg Zolpidem Tartrate (Ambien) 10 mg PO [facility] Last Admin: 11/08/17 22:28 Dose: 10 mg - Labs Labs: 11/08/17 15:30 11/07/17 04:51 PT 13.9 Seconds (9.8-13.1) H 11/05/17 15:40 INR 1.3 (0.9-1.2) H 11/05/17 15:40 APTT 27.7 Seconds (25.6-37.1) 11/05/17 15:40 - Head Exam Head Exam: NORMAL INSPECTION - ENT Exam ENT Exam: Mucous Membranes Moist - Respiratory Exam Respiratory Exam: Rhonchi - Cardiovascular Exam Cardiovascular Exam: REGULAR RHYTHM - GI/Abdominal Exam GI & Abdominal Exam: Normal Bowel Sounds - Neurological Exam Neurological Exam: Awake, Oriented x3 Assessment and Plan (1) Thrombocytopenia Status: Acute (2) COPD exacerbation Status: Acute (3) Pneumonia Status: Acute (4) Severe anemia Status: Acute - Assessment and Plan (Free Text) Plan: Cont meds Cont Zosyn Cont neb tx iv solumedrol pulmonary consult
--- NOTE | 2017-11-09 | CP.PCM.PN ---
Subjective - Date & Time of Evaluation Date of Evaluation: 11/08/17 Time of Evaluation: 14:00 - Subjective Subjective: Patient remains stable Has no chest pain Noted low Hgb and platelet but no decreasing trend. Has no fever Has slight cough Objective - Vital Signs/Intake and Output Vital Signs (last 24 hours): Temp Pulse Resp BP Pulse Ox 98 F 66 20 179/72 H 96 11/08/17 19:22 11/08/17 21:20 11/08/17 19:22 11/08/17 21:20 11/08/17 19:22 - Medications Medications: Current Medications Acetaminophen (Tylenol 325mg Tab) 650 mg PO Q6 PRN PRN Reason: Pain, Mild (1-3) Last Admin: 11/08/17 19:59 Dose: 650 mg Albuterol Sulfate (Albuterol 0.083% Inhal Zonia (2.5 Mg/3 Ml) Ud) 2.5 mg INH RQ4 PRN PRN Reason: Shortness of Breath Last Admin: 11/08/17 04:57 Dose: 2.5 mg Allopurinol (Zyloprim) 100 mg PO HS [facility] Last Admin: 11/07/17 22:06 Dose: 100 mg Amlodipine Besylate (Norvasc) 5 mg PO [facility] Last Admin: 11/08/17 21:20 Dose: 5 mg Aspirin (Aspirin Chewable) 81 mg PO DAILY [facility] Last Admin: 11/06/17 08:18 Dose: 81 mg Atorvastatin Calcium (Lipitor) 20 mg PO HS [facility] Last Admin: 11/08/17 21:18 Dose: 20 mg Bacitracin (Bacitracin Oint) 1 applic TOP BID [facility] Last Admin: 11/08/17 16:40 Dose: 1 applic Calcitriol (Rocaltrol) 0.25 mcg PO DAILY [facility] Last Admin: 11/08/17 09:02 Dose: 0.25 mcg Carvedilol (Coreg) 12.5 mg PO Q12 [facility] Last Admin: 11/08/17 21:19 Dose: 12.5 mg Cholecalciferol (Vitamin D) 1,000 intlu PO DAILY [facility] Last Admin: 11/08/17 09:02 Dose: 1,000 intlu Citalopram Hydrobromide (Celexa) 40 mg PO DAILY [facility] Finasteride (Proscar) 5 mg PO [facility] Last Admin: 11/08/17 21:20 Dose: 5 mg Gabapentin (Neurontin) 300 mg PO Q12 [facility] Last Admin: 11/08/17 21:18 Dose: 300 mg Hydrochlorothiazide (Microzide) 12.5 mg PO DAILY [facility] Last Admin: 11/08/17 09:01 Dose: 12.5 mg Piperacillin Sod/Tazobactam (Sod 2.25 gm/ Sodium Chloride) 100 mls @ 100 mls/ hr IVPB Q6 [facility] PRN Reason: Protocol Last Admin: 11/08/17 16:39 Dose: 100 mls/hr Ipratropium [place] (Atrovent) 0.5 mg IH RQID [facility] Last Admin: 11/08/17 19:12 Dose: 0.5 mg Isosorbide Mononitrate (Imdur Er) 120 mg PO HS [facility] Last Admin: 11/08/17 21:19 Dose: 120 mg Levothyroxine Sodium (Synthroid) 88 mcg PO DAILY@0630 [facility] Last Admin: 11/08/17 06:41 Dose: 88 mcg Lisinopril (Zestril) 20 mg PO Q12 [facility] Last Admin: 11/08/17 21:19 Dose: 20 mg Nitroglycerin (Nitrostat Sl Tab) 0.4 mg SL Q5MIN PRN PRN Reason: chest pain Pantoprazole Sodium (Protonix Ec Tab) 40 mg PO BID [facility] Last Admin: 11/08/17 17:21 Dose: 40 mg Fluticasone/Salmeterol (Advair Diskus 250/50) 1 puff IH Q12 [facility] Last Admin: 11/08/17 22:28 Dose: 1 puff Terazosin HCl (Hytrin) 10 mg PO [facility] Last Admin: 11/08/17 21:18 Dose: 10 mg Zolpidem Tartrate (Ambien) 10 mg PO HS [facility] Last Admin: 11/08/17 22:28 Dose: 10 mg - Labs Labs: 11/08/17 15:30 11/07/17 04:51 PT 13.9 Seconds (9.8-13.1) H 11/05/17 15:40 INR 1.3 (0.9-1.2) H 11/05/17 15:40 APTT 27.7 Seconds (25.6-37.1) 11/05/17 15:40 - Head Exam Head Exam: NORMAL INSPECTION - Eye Exam Eye Exam: Normal appearance - ENT Exam ENT Exam: Mucous Membranes Moist - Respiratory Exam Respiratory Exam: Rhonchi, NORMAL BREATHING PATTERN - Cardiovascular Exam Cardiovascular Exam: REGULAR RHYTHM - GI/Abdominal Exam GI & Abdominal Exam: Normal Bowel Sounds Assessment and Plan (1) COPD exacerbation Status: Acute (2) Myelodysplasia (myelodysplastic syndrome) Status: Acute (3) Anemia Status: Acute (4) Thrombocytopenia Status: Acute (5) Pneumonia Status: Acute - Assessment and Plan (Free Text) Plan: Cont iv antibiotics cont neb tx repeat CXR in am contmeds
[2017-11-09] MEDS: Albuterol 0.083% Inhal Sol (2.5 mg/3 mL) UD INH PRN (03:53)
[2017-11-09 05:39] LABS: BASO % 1.1 % (0.0-2.0); EOS % 0.3 % (0.0-4.0); HEMOGLOBIN 9.8 g/dL (12.0-18.0); LYMPH # 0.7 K/uL (1.0-4.3); LYMPH % 33.4 % (20.0-40.0); MEAN CELL VOLUME 88.2 fl (80.0-94.0); MEAN CORPUSCULAR HEMOGLOBIN 30.1 pg (27.0-31.0); MEAN CORPUSCULAR HGB CONC 34.1 g/dL (33.0-37.0); MEAN PLATELET VOLUME 12.1 fl (7.2-11.7); MONO # 0.4 K/uL (0.0-0.8); MONO % 18.7 % (0.0-10.0); NEUT % 46.5 % (50.0-75.0); NRBC % 0.2 % (0.0-0.0); RBC 3.25 Mil/uL (4.40-5.90); RED CELL DISTRIBUTION WIDTH 14.1 % (11.5-14.5); WHITE BLOOD COUNT 2.1 K/uL (4.8-10.8)
[2017-11-09] MEDS: Ipratropium 0.02% Inhal Soln (0.5 mg/2.5 ml) UD IH SCH ×2 (07:49→11:38)
[2017-11-09] MEDS: Pantoprazole 40 mg EC Tab PO SCH ×2 (09:31→16:59)
[2017-11-09] MEDS: Cholecalciferol 1,000 INTLU TAB PO SCH (09:31)
[2017-11-09] MEDS: Levothyroxine 88 MCG TAB PO SCH (09:31)
[2017-11-09] MEDS: Bacitracin OINT 15GM TOP SCH ×2 (09:31→16:59)
[2017-11-09] MEDS: Fluticasone-Salmeterol 250-50mcg Diskus IH SCH ×2 (09:31→20:41)
--- NOTE | 2017-11-09 09:39 | PQF GENQUE ---
Dr. Kern, 2 queries: Please specify the type and acuity of heart failure in your progress notes: 1. TYPE: Combined systolic and diastolic Heart failure with reduced ejection fraction and diastolic dysfunction Diastolic HFpEF Systolic HFrEF Left heart failure Right heart failure Right heart failure due to left heart failure High Output failure End stage heart failure Other (please specify) Clinically unable to determine Unknown 2. ACUITY: Acute Chronic Acute on chronic Other (please specify) Clinically unable to determine Unknown H and P: hx. of CHF ProBNP:[id number] 11/05 CXR: Impression: Interval right upper lobe infiltrate. Borderline pulmonary venous congestion. coreg , 11/06 :IV lasix x 1 This form is a permanent part of the medical record Clarification of your documentation is requested to better reflect the severity of illness and intensity of treatment of your patient. Indicators present [] Specify: [] [] Specify: [] [] Specify: [] [] Specify: [] Location in the medical record that reflects the above clinical findings: [] Treatment Provided: [] PHYSICIAN'S RESPONSE Based on your medical judgment of the clinical indicators outlined above please clarify the following: [] Practitioner response [] If unable to determine, please check the box, sign and date. Present On Admission (POA) Indicator: [] Present at the time of admission [] Not present at the time of admission [] Clinically Undetermined In responding to this query, please exercise your independent professional judgment. The fact that a question is asked does not imply that any particular answer is desired or expected. Thank you for your clarification on this documentation. If you have any questions please call. * Thank you, Keri Diaz RN ext. #[phone] MTDD
--- NOTE | 2017-11-09 09:46 | PQF GENQUE ---
Dr. Kern, Please clarify the stage of the chronic kidney disease: Stage 1 Stage 2 (mild) Stage 3 (moderate) Stage 4 (severe) Stage 5 Other (please specify) Clinically unable to determine Unknown H and P: hx. CKD BUN:50->48->51->60 Creatinine:2.1->2.0->2.1->2.4 Est GFR(Afric/Non Afric Amer): 37/31->40/33->37/31->32/27 This form is a permanent part of the medical record Clarification of your documentation is requested to better reflect the severity of illness and intensity of treatment of your patient. Indicators present [] Specify: [] [] Specify: [] [] Specify: [] [] Specify: [] Location in the medical record that reflects the above clinical findings: [] Treatment Provided: [] PHYSICIAN'S RESPONSE Based on your medical judgment of the clinical indicators outlined above please clarify the following: [] Practitioner response [] If unable to determine, please check the box, sign and date. Present On Admission (POA) Indicator: [] Present at the time of admission [] Not present at the time of admission [] Clinically Undetermined In responding to this query, please exercise your independent professional judgment. The fact that a question is asked does not imply that any particular answer is desired or expected. Thank you for your clarification on this documentation. If you have any questions please call. * Thank you, Keri Diaz RN ext. #[phone] MTDD
--- NOTE | 2017-11-09 09:53 | CP.PCM.PN ---
Subjective - Date & Time of Evaluation Date of Evaluation: 11/09/17 Time of Evaluation: 09:51 - Subjective Subjective: Pt is awake and alert. he claims that he will get his record from his oncologist because he wants to continue with me.on discharge. Objective - Vital Signs/Intake and Output Vital Signs (last 24 hours): Temp Pulse Resp BP Pulse Ox 98.4 F 88 18 162/70 H 99 11/09/17 07:55 11/09/17 09:32 11/09/17 07:55 11/09/17 09:32 11/09/17 07:55 - Medications Medications: Current Medications Acetaminophen (Tylenol 325mg Tab) 650 mg PO Q6 PRN PRN Reason: Pain, Mild (1-3) Last Admin: 11/08/17 19:59 Dose: 650 mg Acetylcysteine (Acetylcysteine 20%) 2 ml INH RBID [place] Albuterol Sulfate (Albuterol 0.083% Inhal Zonia (2.5 Mg/3 Ml) Ud) 2.5 mg INH RQ4 PRN PRN Reason: Shortness of Breath Last Admin: 11/09/17 03:53 Dose: 2.5 mg Allopurinol (Zyloprim) 100 mg PO HS [facility] Last Admin: 11/07/17 22:06 Dose: 100 mg Amlodipine Besylate (Norvasc) 5 mg PO HS [facility] Last Admin: 11/08/17 21:20 Dose: 5 mg Aspirin (Aspirin Chewable) 81 mg PO DAILY [facility] Last Admin: 11/06/17 08:18 Dose: 81 mg Atorvastatin Calcium (Lipitor) 20 mg PO HS [facility] Last Admin: 11/08/17 21:18 Dose: 20 mg Bacitracin (Bacitracin Oint) 1 applic TOP BID [facility] Last Admin: 11/09/17 09:31 Dose: 1 applic Benzonatate (Tessalon Perles) 200 mg PO Q8 [facility] Last Admin: 11/09/17 09:46 Dose: 200 mg Calcitriol (Rocaltrol) 0.25 mcg PO DAILY [facility] Last Admin: 11/09/17 09:31 Dose: 0.25 mcg Carvedilol (Coreg) 12.5 mg PO Q12 [facility] Last Admin: 11/09/17 09:32 Dose: 12.5 mg Cholecalciferol (Vitamin D) 1,000 intlu PO DAILY [facility] Last Admin: 11/09/17 09:31 Dose: 1,000 intlu Citalopram Hydrobromide (Celexa) 40 mg PO DAILY [facility] Finasteride (Proscar) 5 mg PO [facility] Last Admin: 11/08/17 21:20 Dose: 5 mg Gabapentin (Neurontin) 300 mg PO Q12 [facility] Last Admin: 11/09/17 09:31 Dose: 300 mg Hydrochlorothiazide (Microzide) 12.5 mg PO DAILY [facility] Last Admin: 11/09/17 09:32 Dose: 12.5 mg Piperacillin Sod/Tazobactam (Sod 2.25 gm/ Sodium Chloride) 100 mls @ 100 mls/ hr IVPB Q6 [facility] PRN Reason: Protocol Last Admin: 11/09/17 09:32 Dose: 100 mls/hr Ipratropium [place] (Atrovent) 0.5 mg IH RQID [facility] Last Admin: 11/09/17 07:49 Dose: 0.5 mg Isosorbide Mononitrate (Imdur Er) 120 mg PO [facility] Last Admin: 11/08/17 21:19 Dose: 120 mg Levothyroxine Sodium (Synthroid) 88 mcg PO DAILY@0630 [facility] Last Admin: 11/09/17 09:31 Dose: 88 mcg Lisinopril (Zestril) 20 mg PO Q12 [facility] Last Admin: 11/09/17 09:31 Dose: 20 mg Nitroglycerin (Nitrostat Sl Tab) 0.4 mg SL Q5MIN PRN PRN Reason: chest pain Pantoprazole Sodium (Protonix Ec Tab) 40 mg PO BID [facility] Last Admin: 11/09/17 09:31 Dose: 40 mg Fluticasone/Salmeterol (Advair Diskus 250/50) 1 puff IH Q12 [facility] Last Admin: 11/09/17 09:31 Dose: 1 puff Terazosin HCl (Hytrin) 10 mg PO [facility] Last Admin: 11/08/17 21:18 Dose: 10 mg Zolpidem Tartrate (Ambien) 10 mg PO HS [facility] Last Admin: 11/08/17 22:28 Dose: 10 mg - Labs Labs: 11/09/17 04:25 11/07/17 04:51 PT 13.9 Seconds (9.8-13.1) H 11/05/17 15:40 INR 1.3 (0.9-1.2) H 11/05/17 15:40 APTT 27.7 Seconds (25.6-37.1) 11/05/17 15:40
--- NOTE | 2017-11-09 10:01 | CP.PCM.PN ---
Subjective - Date & Time of Evaluation Date of Evaluation: 11/09/17 Time of Evaluation: 09:58 - Subjective Subjective: Awake, seated up in bed. Appears comfortable, coughing non-productively. The cough does appear to be congested. There has been one sputum collected and sent for culture. No further sputum specimens have been obtained. He denies any chest pains or dyspnea presently. Vital signs have been stable and he has remained afebrile since admission. Oxygenation has been stable using nasal canula. No dullness on percussion, no subcut emphysema. Coarse rhonchi are present in the RUL area posteriorly. No audible bronchial breath sounds or egophony. No wheezes, scattered medium rales present in the lower lobes. Heart sounds slightly distant, regular. Continue aerosol therapy, add acetylcysteine BID. CPT with flutter valve device. Continue attempt to obtain sputum for cytology. Sputum for culture has been sent to lab. Presently on Zosyn; continue. Plain CXR today. Objective - Vital Signs/Intake and Output Vital Signs (last 24 hours): Temp Pulse Resp BP Pulse Ox 98.4 F 88 18 162/70 H 99 11/09/17 07:55 11/09/17 09:32 11/09/17 07:55 11/09/17 09:32 11/09/17 07:55 - Medications Medications: Current Medications Acetaminophen (Tylenol 325mg Tab) 650 mg PO Q6 PRN PRN Reason: Pain, Mild (1-3) Last Admin: 11/08/17 19:59 Dose: 650 mg Acetylcysteine (Acetylcysteine 20%) 2 ml INH RBID [place] Albuterol Sulfate (Albuterol 0.083% Inhal Zonia (2.5 Mg/3 Ml) Ud) 2.5 mg INH RQ4 PRN PRN Reason: Shortness of Breath Last Admin: 11/09/17 03:53 Dose: 2.5 mg Allopurinol (Zyloprim) 100 mg PO [facility] Last Admin: 11/07/17 22:06 Dose: 100 mg Amlodipine Besylate (Norvasc) 5 mg PO HS [facility] Last Admin: 11/08/17 21:20 Dose: 5 mg Aspirin (Aspirin Chewable) 81 mg PO DAILY [facility] Last Admin: 11/06/17 08:18 Dose: 81 mg Atorvastatin Calcium (Lipitor) 20 mg PO [facility] Last Admin: 11/08/17 21:18 Dose: 20 mg Bacitracin (Bacitracin Oint) 1 applic TOP BID [facility] Last Admin: 11/09/17 09:31 Dose: 1 applic Benzonatate (Tessalon Perles) 200 mg PO Q8 [facility] Last Admin: 11/09/17 09:46 Dose: 200 mg Calcitriol (Rocaltrol) 0.25 mcg PO DAILY [facility] Last Admin: 11/09/17 09:31 Dose: 0.25 mcg Carvedilol (Coreg) 12.5 mg PO Q12 [facility] Last Admin: 11/09/17 09:32 Dose: 12.5 mg Cholecalciferol (Vitamin D) 1,000 intlu PO DAILY [facility] Last Admin: 11/09/17 09:31 Dose: 1,000 intlu Citalopram Hydrobromide (Celexa) 40 mg PO DAILY [facility] Finasteride (Proscar) 5 mg PO [facility] Last Admin: 11/08/17 21:20 Dose: 5 mg Gabapentin (Neurontin) 300 mg PO Q12 [facility] Last Admin: 11/09/17 09:31 Dose: 300 mg Hydrochlorothiazide (Microzide) 12.5 mg PO DAILY [facility] Last Admin: 11/09/17 09:32 Dose: 12.5 mg Piperacillin Sod/Tazobactam (Sod 2.25 gm/ Sodium Chloride) 100 mls @ 100 mls/ hr IVPB Q6 [facility] PRN Reason: Protocol Last Admin: 11/09/17 09:32 Dose: 100 mls/hr Ipratropium [place] (Atrovent) 0.5 mg IH RQID [facility] Last Admin: 11/09/17 07:49 Dose: 0.5 mg Isosorbide Mononitrate (Imdur Er) 120 mg PO [facility] Last Admin: 11/08/17 21:19 Dose: 120 mg Levothyroxine Sodium (Synthroid) 88 mcg PO DAILY@0630 [facility] Last Admin: 11/09/17 09:31 Dose: 88 mcg Lisinopril (Zestril) 20 mg PO Q12 [facility] Last Admin: 11/09/17 09:31 Dose: 20 mg Nitroglycerin (Nitrostat Sl Tab) 0.4 mg SL Q5MIN PRN PRN Reason: chest pain Pantoprazole Sodium (Protonix Ec Tab) 40 mg PO BID [facility] Last Admin: 11/09/17 09:31 Dose: 40 mg Fluticasone/Salmeterol (Advair Diskus 250/50) 1 puff IH Q12 [facility] Last Admin: 11/09/17 09:31 Dose: 1 puff Terazosin HCl (Hytrin) 10 mg PO HS [facility] Last Admin: 11/08/17 21:18 Dose: 10 mg Zolpidem Tartrate (Ambien) 10 mg PO [facility] Last Admin: 11/08/17 22:28 Dose: 10 mg - Labs Labs: 11/09/17 04:25 11/07/17 04:51 PT 13.9 Seconds (9.8-13.1) H 11/05/17 15:40 INR 1.3 (0.9-1.2) H 11/05/17 15:40 APTT 27.7 Seconds (25.6-37.1) 11/05/17 15:40 Assessment and Plan (1) Cough with hemoptysis Status: Acute (2) Pneumonia Status: Acute (3) COPD (chronic obstructive pulmonary disease) Status: Chronic
--- NOTE | 2017-11-09 10:09 | PQF GENQUE ---
Dr. Kern, Please specify type of pneumonia in the progress notes: if in agreement with C [employer] Work[employer]: (Note: CAP, HAP, and HCAP indicate where the pneumonia was acquired, not a specific type.) i.e.: Aspiration pneumonia Please document specific aspirate (food, liquids, etc.) Please indicate if this is postprocedural Bacterial (specify organism) Bronchopneumonia (specify organism) Interstitual pneumonia Organizing pneumonia/BOOP Pneumonia with influenza, yelitza flu, or H1N1 flu RSV pneumonia Tuberculosis, pulmonary Viral pneumonia Other pneumonia (specify organism or type) OR: Disagree OR Clinically unable to determine OR Unknown Note: Probable and suspected conditions can be coded as if they exist if still documented at the time of discharge. Please specify the organism causing the pneumonia: if known after the work up is completed Pulmonary consult: Cough with hemoptysis Status: Acute Priority: High Comment: Although possibly related to infectious process in association with low platelets, neoplastic disease remains a consideration. (2) Pneumonia Status: Acute Priority: High Comment: Primarily RUL, but other smaller 'nodules' appear to be consistent with infectious process as well. (3) COPD (chronic obstructive pulmonary disease) Status: Chronic Priority: High Comment: Switch to a more selective beta-enrrique to avoid conflict with beta- agonist. Assessment and Plan (Free Text) : Plan: Continue present antibiotic regimen. Screen sputum for cytology. Obtain sputum for routine culture. Follow up with further imaging in 2-3 weeks (depending on the above results). This form is a permanent part of the medical record Clarification of your documentation is requested to better reflect the severity of illness and intensity of treatment of your patient. Indicators present [] Specify: [] [] Specify: [] [] Specify: [] [] Specify: [] Location in the medical record that reflects the above clinical findings: [] Treatment Provided: [] PHYSICIAN'S RESPONSE Based on your medical judgment of the clinical indicators outlined above please clarify the following: [] Practitioner response [] If unable to determine, please check the box, sign and date. Present On Admission (POA) Indicator: [] Present at the time of admission [] Not present at the time of admission [] Clinically Undetermined In responding to this query, please exercise your independent professional judgment. The fact that a question is asked does not imply that any particular answer is desired or expected. Thank you for your clarification on this documentation. If you have any questions please call. * Thank you, Keri Diaz RN ext. #[phone] MTDD
[2017-11-09] MEDS ORDERED: methylPREDNISolone 40 MG in Sodium Chloride 0.9% 50 ML IVPB ONE (11:59)
[2017-11-09] MEDS ORDERED: MethylPREDNISolone 40 mg Vial IVP ONE (12:30)
--- NOTE | 2017-11-09 15:20 | RAD ---
HISTORY: Pneumonia. COMPARISON: 11/05/2017. TECHNIQUE: Chest PA and lateral FINDINGS: LUNGS: Interval improvement right upper lobe infiltrate. PLEURA: No significant pleural effusion identified. No pneumothorax apparent. CARDIOVASCULAR: No radiographic findings to suggest acute or significant cardiovascular disease. OSSEOUS STRUCTURES: No significant abnormalities. VISUALIZED UPPER ABDOMEN: Normal. OTHER FINDINGS: None. IMPRESSION: Improving right upper lobe infiltrate. Residual consolidative changes in the anterior segment remain
[2017-11-09] MEDS: Albuterol-Ipratrop 3 mg / 0.5 (3 ml) UD INH SCH ×2 (15:57→19:47)
[2017-11-09] MEDS: guaiFENesin-DM 600-30 mg ER Tab PO SCH (16:59)
[2017-11-09] MEDS: Acetylcysteine 20% Inhal Soln (4ml) INH SCH (19:46)
[2017-11-10 05:23] LABS: HEMOGLOBIN 9.5 g/dL (12.0-18.0); MEAN CELL VOLUME 88.7 fl (80.0-94.0); MEAN CORPUSCULAR HEMOGLOBIN 29.8 pg (27.0-31.0); MEAN CORPUSCULAR HGB CONC 33.6 g/dL (33.0-37.0); RBC 3.17 Mil/uL (4.40-5.90); RED CELL DISTRIBUTION WIDTH 14.2 % (11.5-14.5)
[2017-11-10] MEDS: Levothyroxine 88 MCG TAB PO SCH (05:35)
[2017-11-10 05:41] LABS: CALCIUM 8.4 mg/dL (8.4-10.2)
--- NOTE | 2017-11-10 07:08 | CP.PCM.PN ---
Subjective - Date & Time of Evaluation Date of Evaluation: 11/09/17 Time of Evaluation: 10:30 - Subjective Subjective: Patient started to have recurrence of wheezing and rhonchi earlier in the morning Repeat CXR showed persistent lung infiltrate but improved. Has no fever Has no chest pain Objective - Vital Signs/Intake and Output Vital Signs (last 24 hours): Temp Pulse Resp BP Pulse Ox 97.5 F L 81 18 171/73 H 97 11/10/17 04:54 11/10/17 04:54 11/10/17 04:54 11/10/17 04:54 11/10/17 04:54 - Medications Medications: Current Medications Acetaminophen (Tylenol 325mg Tab) 650 mg PO Q6 PRN PRN Reason: Pain, Mild (1-3) Last Admin: 11/08/17 19:59 Dose: 650 mg Acetylcysteine (Acetylcysteine 20%) 2 ml INH RBID [facility] Last Admin: 11/09/17 19:46 Dose: 2 ml Albuterol Sulfate (Albuterol 0.083% Inhal Zonia (2.5 Mg/3 Ml) Ud) 2.5 mg INH RQ4 PRN PRN Reason: Shortness of Breath Last Admin: 11/09/17 03:53 Dose: 2.5 mg Albuterol/Ipratropium (Duoneb 3 Mg/0.5 Mg (3 Ml) Ud) 3 ml INH RQID [facility] Last Admin: 11/09/17 19:47 Dose: 3 ml Allopurinol (Zyloprim) 100 mg PO [facility] Last Admin: 11/09/17 22:00 Dose: 100 mg Amlodipine Besylate (Norvasc) 5 mg PO [facility] Last Admin: 11/09/17 21:50 Dose: 5 mg Aspirin (Aspirin Chewable) 81 mg PO DAILY [facility] Last Admin: 11/06/17 08:18 Dose: 81 mg Atorvastatin Calcium (Lipitor) 20 mg PO HS [facility] Last Admin: 11/09/17 21:50 Dose: 20 mg Bacitracin (Bacitracin Oint) 1 applic TOP BID [facility] Last Admin: 11/09/17 16:59 Dose: 1 applic Benzonatate (Tessalon Perles) 200 mg PO Q8 [facility] Last Admin: 11/10/17 00:19 Dose: 200 mg Calcitriol (Rocaltrol) 0.25 mcg PO DAILY [facility] Last Admin: 11/09/17 09:31 Dose: 0.25 mcg Carvedilol (Coreg) 12.5 mg PO Q12 [facility] Last Admin: 11/09/17 20:41 Dose: 12.5 mg Cholecalciferol (Vitamin D) 1,000 intlu PO DAILY [facility] Last Admin: 11/09/17 09:31 Dose: 1,000 intlu Citalopram Hydrobromide (Celexa) 40 mg PO DAILY [facility] Finasteride (Proscar) 5 mg PO [facility] Last Admin: 11/09/17 21:50 Dose: 5 mg Gabapentin (Neurontin) 300 mg PO Q12 [facility] Last Admin: 11/09/17 20:43 Dose: 300 mg Guaifenesin/Dextromethorphan (Mucinex-Dm 600-30 Mg) 1 tab PO BID [facility] Last Admin: 11/09/17 16:59 Dose: 1 tab Hydrochlorothiazide (Microzide) 12.5 mg PO DAILY [facility] Last Admin: 11/09/17 09:32 Dose: 12.5 mg Piperacillin Sod/Tazobactam (Sod 2.25 gm/ Sodium Chloride) 100 mls @ 100 mls/ hr IVPB Q6 [facility] PRN Reason: Protocol Ipratropium [place] (Atrovent) 0.5 mg IH RQID [facility] Last Admin: 11/09/17 11:38 Dose: 0.5 mg Isosorbide Mononitrate (Imdur Er) 120 mg PO [facility] Last Admin: 11/09/17 21:51 Dose: 120 mg Levothyroxine Sodium (Synthroid) 88 mcg PO DAILY@0630 [facility] Last Admin: 11/10/17 05:35 Dose: 88 mcg Lisinopril (Zestril) 20 mg PO Q12 [facility] Last Admin: 11/09/17 20:42 Dose: 20 mg Nitroglycerin (Nitrostat Sl Tab) 0.4 mg SL Q5MIN PRN PRN Reason: chest pain Pantoprazole Sodium (Protonix Ec Tab) 40 mg PO BID [facility] Last Admin: 11/09/17 16:59 Dose: 40 mg Prednisone (Prednisone Tab) 10 mg PO DAILY [facility] Fluticasone/Salmeterol (Advair Diskus 250/50) 1 puff IH Q12 [facility] Last Admin: 11/09/17 20:41 Dose: 1 puff Terazosin HCl (Hytrin) 10 mg PO HS [facility] Last Admin: 11/09/17 21:49 Dose: 10 mg Zolpidem Tartrate (Ambien) 10 mg PO HS [facility] Last Admin: 11/09/17 21:49 Dose: 10 mg - Labs Labs: 11/10/17 04:15 11/10/17 04:15 PT 13.9 Seconds (9.8-13.1) H 11/05/17 15:40 INR 1.3 (0.9-1.2) H 11/05/17 15:40 APTT 27.7 Seconds (25.6-37.1) 11/05/17 15:40 - Head Exam Head Exam: NORMAL INSPECTION - Eye Exam Eye Exam: Normal appearance - ENT Exam ENT Exam: Mucous Membranes Moist - Respiratory Exam Respiratory Exam: Rhonchi, Wheezes - Cardiovascular Exam Cardiovascular Exam: REGULAR RHYTHM - Neurological Exam Neurological Exam: Awake, Oriented x3 Assessment and Plan (1) COPD exacerbation Status: Acute (2) Myelodysplasia (myelodysplastic syndrome) Status: Acute (3) Anemia Status: Acute (4) Thrombocytopenia Status: Acute (5) Pneumonia Status: Acute - Assessment and Plan (Free Text) Plan: Cont meds cont neb tx cont iv antibiotics cont start phys therapy
[2017-11-10] MEDS: Acetylcysteine 20% Inhal Soln (4ml) INH SCH (07:50)
[2017-11-10] MEDS: Albuterol-Ipratrop 3 mg / 0.5 (3 ml) UD INH SCH ×4 (07:50→15:44)
[2017-11-10] MEDS: Fluticasone-Salmeterol 250-50mcg Diskus IH SCH (08:34)
[2017-11-10] MEDS: Pantoprazole 40 mg EC Tab PO SCH (08:35)
[2017-11-10] MEDS: Cholecalciferol 1,000 INTLU TAB PO SCH (08:36)
[2017-11-10] MEDS: Bacitracin OINT 15GM TOP SCH (08:36)
[2017-11-10] MEDS: guaiFENesin-DM 600-30 mg ER Tab PO SCH (08:36)
--- NOTE | 2017-11-10 09:26 | CP.PCM.PN ---
Subjective - Date & Time of Evaluation Date of Evaluation: 11/10/17 Time of Evaluation: 09:26 Objective - Vital Signs/Intake and Output Vital Signs (last 24 hours): Temp Pulse Resp BP Pulse Ox 97.6 F 84 18 153/75 H 93 L 11/10/17 08:00 11/10/17 08:36 11/10/17 08:00 11/10/17 08:36 11/10/17 08:00 - Medications Medications: Current Medications Acetaminophen (Tylenol 325mg Tab) 650 mg PO Q6 PRN PRN Reason: Pain, Mild (1-3) Last Admin: 11/08/17 19:59 Dose: 650 mg Acetylcysteine (Acetylcysteine 20%) 2 ml INH RBID [facility] Last Admin: 11/10/17 07:50 Dose: 2 ml Albuterol Sulfate (Albuterol 0.083% Inhal Zonia (2.5 Mg/3 Ml) Ud) 2.5 mg INH RQ4 PRN PRN Reason: Shortness of Breath Last Admin: 11/09/17 03:53 Dose: 2.5 mg Albuterol/Ipratropium (Duoneb 3 Mg/0.5 Mg (3 Ml) Ud) 3 ml INH RQID [facility] Last Admin: 11/10/17 07:50 Dose: 3 ml Allopurinol (Zyloprim) 100 mg PO HS [facility] Last Admin: 11/09/17 22:00 Dose: 100 mg Amlodipine Besylate (Norvasc) 5 mg PO HS [facility] Last Admin: 11/09/17 21:50 Dose: 5 mg Aspirin (Aspirin Chewable) 81 mg PO DAILY [facility] Last Admin: 11/06/17 08:18 Dose: 81 mg Atorvastatin Calcium (Lipitor) 20 mg PO HS [facility] Last Admin: 11/09/17 21:50 Dose: 20 mg Bacitracin (Bacitracin Oint) 1 applic TOP BID [facility] Last Admin: 11/10/17 08:36 Dose: 1 applic Benzonatate (Tessalon Perles) 200 mg PO Q8 [facility] Last Admin: 11/10/17 08:35 Dose: 200 mg Calcitriol (Rocaltrol) 0.25 mcg PO DAILY [facility] Last Admin: 11/10/17 08:39 Dose: 0.25 mcg Carvedilol (Coreg) 12.5 mg PO Q12 [facility] Last Admin: 11/10/17 08:36 Dose: 12.5 mg Cholecalciferol (Vitamin D) 1,000 intlu PO DAILY [facility] Last Admin: 11/10/17 08:36 Dose: 1,000 intlu Citalopram Hydrobromide (Celexa) 40 mg PO DAILY [facility] Finasteride (Proscar) 5 mg PO HS [facility] Last Admin: 11/09/17 21:50 Dose: 5 mg Gabapentin (Neurontin) 300 mg PO Q12 [facility] Last Admin: 11/10/17 08:35 Dose: 300 mg Guaifenesin/Dextromethorphan (Mucinex-Dm 600-30 Mg) 1 tab PO BID [facility] Last Admin: 11/10/17 08:36 Dose: 1 tab Hydrochlorothiazide (Microzide) 12.5 mg PO DAILY [facility] Last Admin: 11/09/17 09:32 Dose: 12.5 mg Piperacillin Sod/Tazobactam (Sod 2.25 gm/ Sodium Chloride) 100 mls @ 100 mls/ hr IVPB Q6 [facility] PRN Reason: Protocol Last Admin: 11/10/17 09:11 Dose: 100 mls/hr Ipratropium [place] (Atrovent) 0.5 mg IH RQID [facility] Last Admin: 11/09/17 11:38 Dose: 0.5 mg Isosorbide Mononitrate (Imdur Er) 120 mg PO HS [facility] Last Admin: 11/09/17 21:51 Dose: 120 mg Levothyroxine Sodium (Synthroid) 88 mcg PO DAILY@0630 [facility] Last Admin: 11/10/17 05:35 Dose: 88 mcg Lisinopril (Zestril) 20 mg PO Q12 [facility] Last Admin: 11/10/17 08:35 Dose: 20 mg Nitroglycerin (Nitrostat Sl Tab) 0.4 mg SL Q5MIN PRN PRN Reason: chest pain Pantoprazole Sodium (Protonix Ec Tab) 40 mg PO BID [facility] Last Admin: 11/10/17 08:35 Dose: 40 mg Prednisone (Prednisone Tab) 10 mg PO DAILY [facility] Last Admin: 11/10/17 08:35 Dose: 10 mg Fluticasone/Salmeterol (Advair Diskus 250/50) 1 puff IH Q12 [facility] Last Admin: 11/10/17 08:34 Dose: 1 puff Terazosin HCl (Hytrin) 10 mg PO HS [facility] Last Admin: 11/09/17 21:49 Dose: 10 mg Zolpidem Tartrate (Ambien) 10 mg PO HS [facility] Last Admin: 11/09/17 21:49 Dose: 10 mg - Labs Labs: 11/10/17 04:15 11/10/17 04:15 PT 13.9 Seconds (9.8-13.1) H 11/05/17 15:40 INR 1.3 (0.9-1.2) H 11/05/17 15:40 APTT 27.7 Seconds (25.6-37.1) 11/05/17 15:40 Assessment and Plan (1) Cough with hemoptysis Status: Acute (2) Pneumonia Status: Acute (3) COPD (chronic obstructive pulmonary disease) Status: Chronic
--- NOTE | 2017-11-10 10:06 | CP.PCM.PN ---
Subjective - Date & Time of Evaluation Date of Evaluation: 11/10/17 Time of Evaluation: 09:48 - Subjective Subjective: Interim events reviewed. Developed acute bronchospasm yesterday and multiple meds were added. Prednisone is fine, duoneb with concomitant Advair may result in excess beta adrenergic effect. Mucinex DM along with benzonatate seems to be well tolerated and effective. Carvedilol in this situation would be deleterious causing more bronchospasm. His chest x-ray yesterday shows that the right upper lobe infiltrate is responding to therapy. He has been afebrile, remains hypertensive, and his labs remain stable. On exam this morning there is no dullness on chest percussion. Rhonchi which were very prominent yesterday are very much decreased. There is no audible wheezing at this time,and a few medium rales are heard. Harsh breath sounds with some egophony are heard in the RUL anteriorly. Hopefully sputum culture will be reported today and may indicate a specific oral antibiotic. Change carvedilol to metoprolol or atenolol and continue prednisone 10MG for 5 days, then 5MG for another 5 days. Advair can be continued with Spiriva added to the regimen. A rescue inhaler and nebulizer can be used as needed. A follow up CT chest w/o contrast should be repeated in one month. If the reported 'nodules' are still present, then a biopsy would be indicated. Once he is on an oral antibiotic discharge can be planned. Objective - Vital Signs/Intake and Output Vital Signs (last 24 hours): Temp Pulse Resp BP Pulse Ox 97.6 F 84 18 153/75 H 93 L 11/10/17 08:00 11/10/17 08:36 11/10/17 08:00 11/10/17 08:36 11/10/17 08:00 - Medications Medications: Current Medications Acetaminophen (Tylenol 325mg Tab) 650 mg PO Q6 PRN PRN Reason: Pain, Mild (1-3) Last Admin: 11/08/17 19:59 Dose: 650 mg Acetylcysteine (Acetylcysteine 20%) 2 ml INH RBID [facility] Last Admin: 11/10/17 07:50 Dose: 2 ml Albuterol Sulfate (Albuterol 0.083% Inhal Zonia (2.5 Mg/3 Ml) Ud) 2.5 mg INH RQ4 PRN PRN Reason: Shortness of Breath Last Admin: 11/09/17 03:53 Dose: 2.5 mg Albuterol/Ipratropium (Duoneb 3 Mg/0.5 Mg (3 Ml) Ud) 3 ml INH RQID [facility] Last Admin: 11/10/17 07:50 Dose: 3 ml Allopurinol (Zyloprim) 100 mg PO HS [facility] Last Admin: 11/09/17 22:00 Dose: 100 mg Amlodipine Besylate (Norvasc) 5 mg PO HS [facility] Last Admin: 11/09/17 21:50 Dose: 5 mg Aspirin (Aspirin Chewable) 81 mg PO DAILY [facility] Last Admin: 11/06/17 08:18 Dose: 81 mg Atorvastatin Calcium (Lipitor) 20 mg PO HS [facility] Last Admin: 11/09/17 21:50 Dose: 20 mg Bacitracin (Bacitracin Oint) 1 applic TOP BID [facility] Last Admin: 11/10/17 08:36 Dose: 1 applic Benzonatate (Tessalon Perles) 200 mg PO Q8 [facility] Last Admin: 11/10/17 08:35 Dose: 200 mg Calcitriol (Rocaltrol) 0.25 mcg PO DAILY [facility] Last Admin: 11/10/17 08:39 Dose: 0.25 mcg Carvedilol (Coreg) 12.5 mg PO Q12 [facility] Last Admin: 11/10/17 08:36 Dose: 12.5 mg Cholecalciferol (Vitamin D) 1,000 intlu PO DAILY [facility] Last Admin: 11/10/17 08:36 Dose: 1,000 intlu Citalopram Hydrobromide (Celexa) 40 mg PO DAILY [facility] Finasteride (Proscar) 5 mg PO HS [facility] Last Admin: 11/09/17 21:50 Dose: 5 mg Gabapentin (Neurontin) 300 mg PO Q12 [facility] Last Admin: 11/10/17 08:35 Dose: 300 mg Guaifenesin/Dextromethorphan (Mucinex-Dm 600-30 Mg) 1 tab PO BID [facility] Last Admin: 11/10/17 08:36 Dose: 1 tab Hydrochlorothiazide (Microzide) 12.5 mg PO DAILY [facility] Last Admin: 11/09/17 09:32 Dose: 12.5 mg Piperacillin Sod/Tazobactam (Sod 2.25 gm/ Sodium Chloride) 100 mls @ 100 mls/ hr IVPB Q6 [facility] PRN Reason: Protocol Last Admin: 11/10/17 09:11 Dose: 100 mls/hr Ipratropium [place] (Atrovent) 0.5 mg IH RQID [facility] Last Admin: 11/09/17 11:38 Dose: 0.5 mg Isosorbide Mononitrate (Imdur Er) 120 mg PO HS [facility] Last Admin: 11/09/17 21:51 Dose: 120 mg Levothyroxine Sodium (Synthroid) 88 mcg PO DAILY@0630 [facility] Last Admin: 11/10/17 05:35 Dose: 88 mcg Lisinopril (Zestril) 20 mg PO Q12 [facility] Last Admin: 11/10/17 08:35 Dose: 20 mg Nitroglycerin (Nitrostat Sl Tab) 0.4 mg SL Q5MIN PRN PRN Reason: chest pain Pantoprazole Sodium (Protonix Ec Tab) 40 mg PO BID [facility] Last Admin: 11/10/17 08:35 Dose: 40 mg Prednisone (Prednisone Tab) 10 mg PO DAILY [facility] Last Admin: 11/10/17 08:35 Dose: 10 mg Fluticasone/Salmeterol (Advair Diskus 250/50) 1 puff IH Q12 [facility] Last Admin: 11/10/17 08:34 Dose: 1 puff Terazosin HCl (Hytrin) 10 mg PO [facility] Last Admin: 11/09/17 21:49 Dose: 10 mg Zolpidem Tartrate (Ambien) 10 mg PO HS [facility] Last Admin: 11/09/17 21:49 Dose: 10 mg - Labs Labs: 11/10/17 04:15 11/10/17 04:15 PT 13.9 Seconds (9.8-13.1) H 11/05/17 15:40 INR 1.3 (0.9-1.2) H 11/05/17 15:40 APTT 27.7 Seconds (25.6-37.1) 11/05/17 15:40 Assessment and Plan (1) Cough with hemoptysis Status: Acute (2) Pneumonia Status: Acute (3) COPD (chronic obstructive pulmonary disease) Status: Chronic
--- NOTE | 2017-11-10 11:20 | CP.PCM.PN ---
Subjective - Date & Time of Evaluation Date of Evaluation: 11/10/17 Time of Evaluation: 11:10 - Subjective Subjective: Pt's cbc is stable considering his MDS. He is however still having respiratory problems.. The nodules in the lung mainly seem to be due to the pulmonary inflammatory process. Awaiting sputum c/s/. Objective - Vital Signs/Intake and Output Vital Signs (last 24 hours): Temp Pulse Resp BP Pulse Ox 97.6 F 84 18 153/75 H 93 L 11/10/17 08:00 11/10/17 08:36 11/10/17 08:00 11/10/17 08:36 11/10/17 08:00 - Medications Medications: Current Medications Acetaminophen (Tylenol 325mg Tab) 650 mg PO Q6 PRN PRN Reason: Pain, Mild (1-3) Last Admin: 11/08/17 19:59 Dose: 650 mg Acetylcysteine (Acetylcysteine 20%) 2 ml INH RBID [facility] Last Admin: 11/10/17 07:50 Dose: 2 ml Albuterol Sulfate (Albuterol 0.083% Inhal Zonia (2.5 Mg/3 Ml) Ud) 2.5 mg INH RQ4 PRN PRN Reason: Shortness of Breath Last Admin: 11/09/17 03:53 Dose: 2.5 mg Albuterol/Ipratropium (Duoneb 3 Mg/0.5 Mg (3 Ml) Ud) 3 ml INH RQID [facility] Last Admin: 11/10/17 07:50 Dose: 3 ml Allopurinol (Zyloprim) 100 mg PO [facility] Last Admin: 11/09/17 22:00 Dose: 100 mg Amlodipine Besylate (Norvasc) 5 mg PO [facility] Last Admin: 11/09/17 21:50 Dose: 5 mg Aspirin (Aspirin Chewable) 81 mg PO DAILY [facility] Last Admin: 11/06/17 08:18 Dose: 81 mg Atorvastatin Calcium (Lipitor) 20 mg PO [facility] Last Admin: 11/09/17 21:50 Dose: 20 mg Bacitracin (Bacitracin Oint) 1 applic TOP BID [facility] Last Admin: 11/10/17 08:36 Dose: 1 applic Benzonatate (Tessalon Perles) 200 mg PO Q8 [facility] Last Admin: 11/10/17 08:35 Dose: 200 mg Calcitriol (Rocaltrol) 0.25 mcg PO DAILY [facility] Last Admin: 11/10/17 08:39 Dose: 0.25 mcg Carvedilol (Coreg) 12.5 mg PO Q12 [facility] Last Admin: 11/10/17 08:36 Dose: 12.5 mg Cholecalciferol (Vitamin D) 1,000 intlu PO DAILY [facility] Last Admin: 11/10/17 08:36 Dose: 1,000 intlu Citalopram Hydrobromide (Celexa) 40 mg PO DAILY [facility] Finasteride (Proscar) 5 mg PO HS [facility] Last Admin: 11/09/17 21:50 Dose: 5 mg Gabapentin (Neurontin) 300 mg PO Q12 [facility] Last Admin: 11/10/17 08:35 Dose: 300 mg Guaifenesin/Dextromethorphan (Mucinex-Dm 600-30 Mg) 1 tab PO BID [facility] Last Admin: 11/10/17 08:36 Dose: 1 tab Hydrochlorothiazide (Microzide) 12.5 mg PO DAILY [facility] Last Admin: 11/09/17 09:32 Dose: 12.5 mg Piperacillin Sod/Tazobactam (Sod 2.25 gm/ Sodium Chloride) 100 mls @ 100 mls/ hr IVPB Q6 [facility] PRN Reason: Protocol Last Admin: 11/10/17 09:11 Dose: 100 mls/hr Ipratropium [employer] (Atrovent) 0.5 mg IH RQID [facility] Last Admin: 11/09/17 11:38 Dose: 0.5 mg Isosorbide Mononitrate (Imdur) 120 mg PO [facility] Levothyroxine Sodium (Synthroid) 88 mcg PO DAILY@0630 [facility] Last Admin: 11/10/17 05:35 Dose: 88 mcg Lisinopril (Zestril) 20 mg PO Q12 [facility] Last Admin: 11/10/17 08:35 Dose: 20 mg Nitroglycerin (Nitrostat Sl Tab) 0.4 mg SL Q5MIN PRN PRN Reason: chest pain Pantoprazole Sodium (Protonix Ec Tab) 40 mg PO BID [facility] Last Admin: 11/10/17 08:35 Dose: 40 mg Prednisone (Prednisone Tab) 10 mg PO DAILY [facility] Last Admin: 11/10/17 08:35 Dose: 10 mg Fluticasone/Salmeterol (Advair Diskus 250/50) 1 puff IH Q12 [facility] Last Admin: 11/10/17 08:34 Dose: 1 puff Terazosin HCl (Hytrin) 10 mg PO HS [facility] Last Admin: 11/09/17 21:49 Dose: 10 mg Zolpidem Tartrate (Ambien) 10 mg PO HS [facility] Last Admin: 11/09/17 21:49 Dose: 10 mg - Labs Labs: 11/10/17 04:15 11/10/17 04:15 PT 13.9 Seconds (9.8-13.1) H 11/05/17 15:40 INR 1.3 (0.9-1.2) H 11/05/17 15:40 APTT 27.7 Seconds (25.6-37.1) 11/05/17 15:40
[2017-11-10] MEDS ORDERED: Metoprolol Succinate 25 mg XL Tab PO SCH (11:45)
[2017-11-10 12:06] VITALS: RESP 20
[2017-11-10] MEDS ORDERED: levoFLOXacin 500 mg in D5W 500 MG/100 ML BAG IVPB SCH (12:30)
--- NOTE | 2017-11-10 13:24 | CP.PCM.DIS ---
Provider - Provider Date of Admission: 11/05/17 18:50 Attending physician: Riley Kern MD Consults: Pulmonology Hem-Onc Time Spent in preparation of Discharge (in minutes): 35 Diagnosis - Discharge Diagnosis (1) Pneumonia Status: Acute Priority: High Comment: Improved. C/W Abx (2) Myelodysplasia (myelodysplastic syndrome) Status: Chronic Comment: S/P PRBC/Plts transfusion. Chronic. Evaluated by Hem-onc (3) Pancytopenia Status: Chronic Comment: Likely due to MDS. Stable (4) Abdominal trauma Status: Acute Comment: Post fall. Ecchymosis. No organ damage suspected. Stable Hospital Course - Lab Results Lab Results: Micro Results 11/06/17 11:40 Blood-Venous Blood Culture - Preliminary NO GROWTH AFTER 4 DAYS 11/06/17 11:30 Blood-Venous Blood Culture - Preliminary NO GROWTH AFTER 4 DAYS 11/07/17 20:39 Sputum Gram Stain - Final 11/07/17 20:39 Sputum Sputum Culture - Final NORMAL ORAL DEANN Most Recent Lab Values WBC 2.0 K/uL (4.8-10.8) L* 11/10/17 04:15 RBC 3.17 Mil/uL (4.40-5.90) L 11/10/17 04:15 Hgb 9.5 g/dL (12.0-18.0) L 11/10/17 04:15 Hct 28.2 % (35.0-51.0) L 11/10/17 04:15 MCV 88.7 fl (80.0-94.0) 11/10/17 04:15 MCH 29.8 pg (27.0-31.0) 11/10/17 04:15 MCHC 33.6 g/dL (33.0-37.0) 11/10/17 04:15 RDW 14.2 % (11.5-14.5) 11/10/17 04:15 Plt Count 34 K/uL (130-400) L 11/10/17 04:15 MPV 12.1 fl (7.2-11.7) H 11/09/17 04:25 Neut % (Auto) 46.5 % (50.0-75.0) L 11/09/17 04:25 Lymph % (Auto) 33.4 % (20.0-40.0) 11/09/17 04:25 [place] % (Auto) 18.7 % (0.0-10.0) H 11/09/17 04:25 Eos % (Auto) 0.3 % (0.0-4.0) 11/09/17 04:25 Baso % (Auto) 1.1 % (0.0-2.0) 11/09/17 04:25 Neut # (Auto) 1.0 K/uL (1.8-7.0) L 11/09/17 04:25 Lymph # (Auto) 0.7 K/uL (1.0-4.3) L 11/09/17 04:25 [place] # (Auto) 0.4 K/uL (0.0-0.8) 11/09/17 04:25 Eos # (Auto) 0.0 K/uL (0.0-0.7) 11/09/17 04:25 Baso # (Auto) 0.0 K/uL (0.0-0.2) 11/09/17 04:25 Neutrophils % (Manual) 55 % (42-75) 11/05/17 13:30 Lymphocytes % (Manual) 20 % (20-50) 11/05/17 13:30 Reactive Lymphs % 1 % (0-0) H 11/05/17 13:30 Monocytes % (Manual) 24 % (0-10) H 11/05/17 13:30 Platelet Estimate Decreased (NORMAL) L 11/05/17 13:30 Large Platelets Present 11/05/17 13:30 Hypochromasia (manual) Slight 11/05/17 13:30 PT 13.9 Seconds (9.8-13.1) H 11/05/17 15:40 INR 1.3 (0.9-1.2) H 11/05/17 15:40 APTT 27.7 Seconds (25.6-37.1) 11/05/17 15:40 Sodium 137 mmol/l (132-148) 11/10/17 04:15 Potassium 4.3 MMOL/L (3.6-5.0) 11/10/17 04:15 Chloride 101 mmol/L (98-107) 11/10/17 04:15 Carbon Dioxide 24 mmol/L (22-30) 11/10/17 04:15 Anion Gap 16 (10-20) 11/10/17 04:15 BUN 67 mg/dl (9-20) H 11/10/17 04:15 Creatinine 2.4 mg/dl (0.8-1.5) H 11/10/17 04:15 Est GFR ( Amer) 32 11/10/17 04:15 Est GFR (Non-Af Amer) 27 11/10/17 04:15 Random Glucose 126 mg/dL (75-110) H 11/10/17 04:15 Calcium 8.4 mg/dL (8.4-10.2) 11/10/17 04:15 Total Bilirubin 0.7 mg/dl (0.2-1.3) 11/06/17 06:16 AST 31 U/L (17-59) 11/06/17 06:16 ALT 31 U/L (21-72) 11/06/17 06:16 Alkaline Phosphatase 41 U/L (38-126) 11/06/17 06:16 NT-Pro-B Natriuret Pep 36583 pg/ml (0-900) H 11/06/17 16:45 Total Protein 5.9 G/DL (6.3-8.2) L 11/06/17 06:16 Albumin 2.7 g/dL (3.5-5.0) L 11/06/17 06:16 Globulin 3.3 gm/dL (2.2-3.9) 11/06/17 06:16 Albumin/Globulin Ratio 0.8 (1.0-2.1) L 11/06/17 06:16 Lipase 128 U/L (23-300) 11/05/17 13:30 Ur L.pneumophila Ag Negative (NEGATIVE) 11/07/17 20:39 Blood Type O POSITIVE 11/05/17 13:30 Antibody Screen Positive 11/05/17 13:30 Antibody Identification Anti c 11/05/17 13:30 Crossmatch See Detail 11/05/17 13:30 BBK History Checked Patient has bt 11/05/17 13:30 - Hospital Course Hospital Course: 77 y/o patient with Hx of COPD, CHF, MDS, HTN, admitted to hosp after falling from bed and concerns about bruising in the flank/Chest area. Chest imaging studies showed infiltrate/consolidation and nodularity. Patient evaluated by Pulm and was started on abx for Pneumonia. He was noticed pancytopenic and received PRBC and plts trasnfusion. Was evaluated by hem-onc. Today after cleared by consultants and medically stable [facility] is [facility] PO abx and medical care as outpatient Discharge Exam - Head Exam Head Exam: NORMAL INSPECTION - Eye Exam Eye Exam: PERRL - ENT Exam ENT Exam: Mucous Membranes Moist - Respiratory Exam Respiratory Exam: NORMAL BREATHING PATTERN, UNREMARKABLE. absent: Wheezes - Cardiovascular Exam Cardiovascular Exam: REGULAR RHYTHM, +S1, +S2. absent: Gallop - GI/Abdominal Exam GI & Abdominal Exam: Normal Bowel Sounds, Soft, Unremarkable. absent: Tenderness - Neurological Exam Neurological exam: Alert, Oriented x3 - Psychiatric Exam Psychiatric exam: Normal Affect, Normal Mood - Skin Skin Exam: Warm Discharge Plan - Discharge Medications Prescriptions: Albuterol 0.083% [Albuterol 0.083% Inhal [place] (2.5 mg/3 ml) UD] 2.5 mg INH RQ4 PRN #30 neb PRN Reason: Shortness Of Breath Bacitracin OINT 1 applic TOP BID #1 tube Benzonatate [Tessalon Perles] 200 mg PO Q8 #30 sgl guaiFENesin/Dextromethorphan [Mucinex-DM 600-30 mg] 1 tab PO BID #14 tab Ipratropium 0.02% [Atrovent] 0.5 mg IH RQID #30 neb Levofloxacin [Levaquin] 500 mg PO DAILY #7 tablet Metoprolol Succinate [Toprol XL] 25 mg PO DAILY #30 tab predniSONE [predniSONE Tab] 5 mg PO DAILY #15 tab - Follow Up Plan Condition: STABLE Disposition: HOME/ ROUTINE Instructions: Cough, Adult (DC), Exacerbation of COPD (DC), Myelodysplastic Syndromes (MDS) (DC) Additional Instructions: Patient in bed, in no apparent distress, and feeling well. Discharge plan discussed with Dr. Kern and Dr. Torres, meds reviewed. Discharge plan reviewed with patient and agreed. pt. cleared for d/c today by , and pt. will f/u with next thursday at 10 am Rx for all meds sent to [facility] Referrals: Orestes Donaldson MD [Staff Provider] - Riley Kern MD [Staff Provider] - Jeanmarie Torres MD [Staff Provider] -
[2017-11-10 15:20] VITALS: BP 182/73; PULSE 85; TEMP 98; O2SAT 97
[2017-11-10] MEDS: Ipratropium 0.02% Inhal Soln (0.5 mg/2.5 ml) UD IH SCH (15:44)
== END 2017-11-10 17:15 | disposition home or self-care (01) | DRG 808 ==
LOC: H.ER 12:29 → H.ERHOLD 18:50 → H.TEL 22:13
PROVIDERS: ADMIT Family Medicine; ATTEND Family Medicine
PROC: 30233N1 Transfusion of Nonautologous Red Blood Cells into Peripheral Vein, Percutaneous Approach (ICD-10-PCS; principal; 2017-11-06)
DX: D61.818 Other pancytopenia (principal); J15.9 Unspecified bacterial pneumonia; C95.90 Leukemia, unspecified not having achieved remission; I13.0 Hypertensive heart and chronic kidney disease with heart failure and stage 1 through stage 4 chronic kidney disease, or unspecified chronic kidney disease; N18.4 Chronic kidney disease, stage 4 (severe); J44.0 Chronic obstructive pulmonary disease with (acute) lower respiratory infection; I50.9 Heart failure, unspecified; D46.9 Myelodysplastic syndrome, unspecified; J44.1 Chronic obstructive pulmonary disease with (acute) exacerbation; E03.9 Hypothyroidism, unspecified; E78.00 Pure hypercholesterolemia, unspecified; E78.5 Hyperlipidemia, unspecified; I25.10 Atherosclerotic heart disease of native coronary artery without angina pectoris; W06.XXXA Fall from bed, initial encounter; Y92.003 Bedroom of unspecified non-institutional (private) residence as the place of occurrence of the external cause; Z79.82 Long term (current) use of aspirin; Z80.1 Family history of malignant neoplasm of trachea, bronchus and lung; Z87.01 Personal history of pneumonia (recurrent); Z87.891 Personal history of nicotine dependence; Z95.1 Presence of aortocoronary bypass graft; Z79.899 Other long term (current) drug therapy; R06.02 Shortness of breath; R91.8 Other nonspecific abnormal finding of lung field

== ENCOUNTER 2017-11-23 04:09 | Inpatient (IN) | payer MEDICARE ==
[2017-11-23 04:10] VITALS: BMI 27.8
[2017-11-23] MEDS ORDERED: DiphenhydrAMINE 50 mg/ml Inj ONE (04:17)
[2017-11-23] MEDS ORDERED: DiphenhydrAMINE 50 mg/ml Inj IVP STA (04:18)
[2017-11-23] MEDS ORDERED: Albuterol 0.083% Inhal Sol (2.5 mg/3 mL) UD INH ONE (04:25)
--- NOTE | 2017-11-23 04:25 | ED PDOC ---
HPI: Allergic Reaction Time Seen by Provider: 11/23/17 04:13 Chief Complaint (Nursing): Dental Pain Chief Complaint (Provider): Swollen Tongue History Per: Patient History/Exam Limitations: no limitations Current Symptoms Are (Timing): Still Present Possible Cause: Medication Associated Symptoms: Swelling Additional Complaint(s): 77 year old male brought in by EMS presents to ED with complaints of angioedema to the tongue and has a past medical history of HTN, seizures, gout, CAD, COPD, CHDF, chronic kidney disease, myelodysplastic syndrome, hypothyroidism, subdural hemorrhage, allergic reactions, and was recently treated for PNA. Patient notes acute onset of tongue swelling upon waking up and subsequently called EMS. (-) SOB. Patient states he has been taking Lisinopril for the last 4 months. PCP: Erlin Past Medical History Reviewed: Historical Data, Nursing Documentation, Vital Signs Vital Signs: Last Vital Signs Temp 97.9 F 11/23/17 04:13 Pulse 99 H 11/23/17 04:13 Resp 18 11/23/17 04:13 BP 113/58 L 11/23/17 04:13 Pulse Ox 98 11/23/17 04:13 - Medical History PMH: Anemia, Asthma, CAD, CHF, COPD, HTN, Hypercholesterolemia, Hyperlipidemia, Hypothyroidism, Pneumonia, Chronic Kidney Disease Denies: HIV - Surgical History Surgical History: CABG - Family History Family History: States: Unknown Family Hx - Social History Alcohol: None Drugs: Denies - Home Medications Home Medications: Ambulatory Orders Medication Instructions Recorded Allopurinol [Zyloprim] 100 mg PO HS 12/26/15 Gabapentin [Neurontin] 300 mg PO Q12 12/26/15 Omeprazole [Prilosec] 20 mg PO BID 12/26/15 Terazosin [Hytrin] 10 mg PO HS 12/26/15 Isosorbide Mononitrate ER [Imdur 120 mg PO HS 03/23/17 ER] Lisinopril [Zestril] 20 mg PO Q12 03/23/17 Simvastatin 40 mg PO HS 03/23/17 Finasteride [Proscar] 5 mg PO HS 10/25/17 amLODIPine [Norvasc] 5 mg PO HS 10/25/17 Cholecalciferol [Vitamin D 1000 IU] 1,000 unit PO DAILY 11/05/17 Levothyroxine [Synthroid] 88 mcg PO DAILY 11/05/17 Nitroglycerin [Nitrostat] 0.4 mg SL Q5MIN PRN 11/05/17 Zolpidem [Ambien] 5 mg PO HS 11/05/17 hydroCHLOROthiazide [Microzide] 12.5 mg PO DAILY 11/05/17 Metoprolol Succinate [Toprol XL] 25 mg PO DAILY #30 tab 11/10/17 - Allergies Allergies/Adverse Reactions: Allergies Allergy/AdvReac Type Severity Reaction Status Date / Time No Known Allergies Allergy Verified 11/23/17 04:12 Review of Systems ROS Statement: Except As Marked, All Systems Reviewed And Found Negative ENT: Positive for: Other (Tongue swelling) Respiratory: Negative for: Shortness of Breath Physical Exam - Reviewed Nursing Documentation Reviewed: Yes Vital Signs Reviewed: Yes - Physical Exam Appears: Positive for: Non-toxic Skin: Positive for: Normal Color, Warm, Dry Eye Exam: Positive for: Normal appearance ENT: Negative for: Normal ENT Inspection (angioedema of the tongue) Cardiovascular/Chest: Positive for: Regular Rate, Rhythm. Negative for: Murmur Respiratory: Positive for: Normal Breath Sounds. Negative for: Wheezing, Respiratory Distress (able to speak) Gastrointestinal/Abdominal: Positive for: Soft. Negative for: Tenderness Neurologic/Psych: Positive for: Alert, Oriented. Negative for: Motor/Sensory Deficits - Laboratory Results Result Diagrams: 11/25/17 04:35 11/25/17 04:35 - ECG O2 Sat by Pulse Oximetry: 98 Disposition - Patient ED Disposition Is Patient to be Admitted: Yes - Disposition Disposition Time: 04:29 Condition: FAIR - Pt Status Changed To: Hospital Disposition Of: Inpatient (INPATIENT ICU) - Admit Certification Admit to Inpatient:: After my assessment, the patient will require hospitalization for at least two midnights. This is because of the severity of symptoms shown, intensity of services needed, and/or the medical risk in this patient being treated as an outpatient. Medical Decision Making Medical Decision Makin Initial plan: * T&S * Labs * PTT/PT * Benadryl 50mg IVP * Pepcid 20mg IVP * Solumedrol 125 mg IVP * Re-eval [id number] Kern, PCP, who agrees with plan to admit to ICU. [id number] Discussed case with service sprinkler helper secondary school teacher, Dr. Parmar, who accepts admission. * CXR Scribe Attestation: Documented by Mile Main acting as a scribe for Ana Ye MD. Scribe Attestation: All medical record entries made by the Scribe were at my direction and personally dictated by me. I have reviewed the chart and agree that the record accurately reflects my personal performance of the history, physical exam, medical decision making, and the department course for this patient. I have also personally directed, reviewed, and agree with the discharge instructions and disposition.
[2017-11-23 04:31] LABS: BASO % 0.6 % (0.0-2.0); EOS % 0.4 % (0.0-4.0); HEMOGLOBIN 8.4 g/dL (12.0-18.0); LYMPH # 0.8 K/uL (1.0-4.3); LYMPH % 52.8 % (20.0-40.0); MEAN CELL VOLUME 86.4 fl (80.0-94.0); MEAN CORPUSCULAR HEMOGLOBIN 29.5 pg (27.0-31.0); MEAN CORPUSCULAR HGB CONC 34.1 g/dL (33.0-37.0); MONO # 0.2 K/uL (0.0-0.8); MONO % 13.2 % (0.0-10.0); NEUT # 0.5 K/uL (1.8-7.0); NRBC % 0.5 % (0.0-0.0); RBC 2.85 Mil/uL (4.40-5.90)
[2017-11-23 04:38] LABS: WHITE BLOOD COUNT 1.4 K/uL (4.8-10.8)
[2017-11-23 04:43] LABS: ALB/GLOB RATIO 0.7 (1.0-2.1); ALBUMIN 2.7 g/dL (3.5-5.0); CALCIUM 8.7 mg/dL (8.4-10.2)
[2017-11-23] MEDS ORDERED: Albuterol 0.083% Inhal Sol (2.5 mg/3 mL) UD ONE (04:57)
[2017-11-23 05:21] LABS: INR 1.2 (0.9-1.2); PARTIAL THROMBOPLASTIN TIME 33.5 Seconds (25.6-37.1); PROTHROMBIN TIME 12.9 Seconds (9.8-13.1)
--- NOTE | 2017-11-23 05:23 | CP.PCM.CON ---
History of Present Illness - History of Present Illness History of Present Illness: PMD: Riley Kern MD Reason for consult: Critical care Management Chief Complaint: Swollen tongue The Patient was seen and evaluated in the ED. no family member present HPI: The Hx is obtained after evaluation of the medical records. He is a 77 years old male with hx of CAD/PVD, Hypothyroidism, Subdural hematoma. Myelodysplastic syndrome who was admitted on 01/15/16 for Tongue swelling and trouble swallowing. He is now brought by the EMS with complaint of an acute unset of swollen tongue on waking up during the night. No SOB. he has been taking Lisinopril for the last 4 months. PMH: CAD/ PVD; HTN; Hypothyroidism; Gout; Asthma, SDH; CKD; BPH; Anemia with multiple blood transfusions; Myelodysplastic syndrome; Sleep Apnea; Chronic Leukopenia PSH: CABG, PCI with 3 stents placement; Bilateral lower extremity stents; SH: No illegal drug use; Former Smoker; No Alcohol; Live with niece FH: Father with lung cancer Allergies: past hx of Angioedema with swollen tongue Medications: Reviewed Review of Systems - Review of Systems Review of Systems: Review of systems is limited as the patient cannot talk with large tongue and mild sedation after Benadryl Past Patient History - Past Medical History & Family History Past Medical History?: Yes - Past Social History Smoking Status: Former Smoker Chewing Tobacco Use: No Cigar Use: No Alcohol: None Drugs: Denies Home Situation {Lives}: With Family - CARDIAC Hx Congestive Heart Failure: Yes Hx Hypercholesterolemia: Yes Hx Hypertension: Yes - PULMONARY Hx Asthma: Yes Hx Chronic Obstructive Pulmonary Disease (COPD): Yes Hx Pneumonia: Yes - NEUROLOGICAL Hx Neurological Disorder: Yes Other/Comment: Near syncope. - HEENT Hx HEENT Problems: Yes - RENAL Hx Chronic Kidney Disease: Yes - ENDOCRINE/METABOLIC Hx Hypothyroidism: Yes - HEMATOLOGICAL/ONCOLOGICAL Hx Anemia: Yes Hx Human Immunodeficiency Virus (HIV): No Other/Comment: Myelodysplastic syndrome - INTEGUMENTARY Hx Dermatological Problems: No - MUSCULOSKELETAL/RHEUMATOLOGICAL Hx Falls: Yes - GASTROINTESTINAL Hx Gastrointestinal Disorders: No - GENITOURINARY/GYNECOLOGICAL Hx Prostate Problems: Yes - PSYCHIATRIC Hx Psychophysiologic Disorder: No Hx Substance Use: No - SURGICAL HISTORY Hx Cardiac Catheterization: Yes Hx Coronary Artery Bypass Graft: Yes Other/Comment: Stents in both lower extremities - ANESTHESIA Hx Anesthesia: Yes Hx Anesthesia Reactions: No Hx Malignant Hyperthermia: No Meds Allergies/Adverse Reactions: Allergies Allergy/AdvReac Type Severity Reaction Status Date / Time No Known Allergies Allergy Verified 11/23/17 04:12 Physical Exam - Constitutional Additional comments: Mild respiratory with the large tongue protruding from the mouth. - Head Exam Head Exam: ATRAUMATIC, NORMAL INSPECTION, NORMOCEPHALIC - Eye Exam Eye Exam: Normal appearance. absent: Periorbital swelling Additional comments: Equal and reacting well to light - ENT Exam ENT Exam: Mucous Membranes Moist Additional comments: Genaro tongue protruding from the mouth with Saliva dripping down. - Neck Exam Neck exam: Negative for: Lymphadenopathy Additional comments: Short obese neck - Respiratory Exam Respiratory Exam: absent: Stridor Additional comments: Distant breath sounds, no rales, wheezing. Mild ronchi. - Cardiovascular Exam Cardiovascular Exam: Diastolic murmur, REGULAR RHYTHM, RRR, +S1, +S2 - GI/Abdominal Exam Additional comments: Ecchymotic patch 10X5cm at the mid legt abdomen and another patch of ecchymosis 12X4cm below the right breast Abdomen obese, firm, decreased bowel sounds, No palpable viceromegaleas. - Rectal Exam Rectal Exam: Deferred - Extremities Exam Additional comments: 2+ edema to the right lower extremity. No edema to the left lower extremity. - Back Exam Back exam: absent: CVA tenderness (L), CVA tenderness (R) - Neurological Exam Additional comments: Very Sleepy post Benadryl , no facial droop, Motor tone conserved. Non focal neurological findings - Psychiatric Exam Additional comments: Very Sleepy post Benadryl , no facial droop, Motor tone conserved. Non focal neurological findings - Skin Skin Exam: Dry, Intact, Normal Color, Warm Additional comments: Ecchymotic patch 10X5cm at the mid legt abdomen and another patch of ecchymosis 12X4cm below the right breast Results - Vital Signs Recent Vital Signs: Last Vital Signs Temp 97.9 F 11/23/17 04:13 Pulse 99 H 11/23/17 04:13 Resp 18 11/23/17 04:13 BP 113/58 L 11/23/17 04:13 Pulse Ox 98 11/23/17 05:06 - Labs Result Diagrams: 11/23/17 04:28 11/23/17 04:28 Labs: Laboratory Results - last 24 hr 11/23/17 11/23/17 11/23/17 04:28 04:28 04:28 WBC 1.4 L* RBC 2.85 L Hgb 8.4 L Hct 24.6 L MCV 86.4 D MCH 29.5 MCHC 34.1 RDW 14.0 Plt Count 38 L MPV 10.0 Neut % (Auto) 33.0 L Lymph % (Auto) 52.8 H [place] % (Auto) 13.2 H Eos % (Auto) 0.4 Baso % (Auto) 0.6 Neut # (Auto) 0.5 L Lymph # (Auto) 0.8 L [place] # (Auto) 0.2 Eos # (Auto) 0.0 Baso # (Auto) 0.0 PT 12.9 INR 1.2 APTT 33.5 Sodium 140 Potassium 4.7 Chloride 103 Carbon Dioxide 26 Anion Gap 16 BUN 45 H Creatinine 2.9 H Est GFR ( Amer) 26 Est GFR (Non-Af Amer) 21 Random Glucose 113 H Calcium 8.7 Total Bilirubin 0.3 AST 33 ALT 21 D Alkaline Phosphatase 48 Total Protein 6.6 Albumin 2.7 L Globulin 3.9 Albumin/Globulin Ratio 0.7 L BBK History Checked 11/23/17 04:29 WBC RBC Hgb Hct MCV MCH MCHC RDW Plt Count MPV Neut % (Auto) Lymph % (Auto) [place] % (Auto) Eos % (Auto) Baso % (Auto) Neut # (Auto) Lymph # (Auto) [place] # (Auto) Eos # (Auto) Baso # (Auto) PT INR APTT Sodium Potassium Chloride Carbon Dioxide Anion Gap BUN Creatinine Est GFR ( Amer) Est GFR (Non-Af Amer) Random Glucose Calcium Total Bilirubin AST ALT Alkaline Phosphatase Total Protein Albumin Globulin Albumin/Globulin Ratio BBK History Checked Patient has bt - Imaging and Cardiology Chest x-ray Status: Image reviewed by me Additional comment: cardiomegaly No infiltrate Assessment & Plan - Assessment and Plan (Free Text) Assessment: #. Allergic Reaction with Angioedema #. Myelodysplastic Syndrome with Pancytopenia #. Hypothyroidism #. Stage IV CKD #. CAD/PVD #. Asthma Plan: 77 years old male with hx of CAD/PVD, Hypothyroidism, Subdural hematoma. Myelodysplastic syndrome who was admitted on 01/15/16 for Tongue swelling and trouble swallowing. He is now brought by the EMS with acute unset of swollen tongue on waking up during the night. #. Allergic Reaction with Angioedema - Admit to ICU for closs monitoring - NPO - Hold Lisinopril - Benadryl - Pepcid - Methylprednisolone - IV Fluid #. Myelodysplastic Syndrome with Pancytopenia - Consult Dr Leahy Hem/Onc -Follow WBC #. Hypothyroidism - Synthroid. #. Stage IV CKD - IV Fluid - Follow Renal labs #. CAD/PVD - Restart Statin when patient start oral feed - No ASA nor Plavix as pte is thrombocytopenic #. Asthma - Albuterol #. DVT Prophylaxis with SCD #. Code Status: Full - Date & Time Date: 11/23/17 Time: 05:23
[2017-11-23] MEDS ORDERED: Pneumococcal 23-Valent Vaccine IM ONE (07:13)
[2017-11-23] MEDS: Albuterol 0.083% Inhal Sol (2.5 mg/3 mL) UD INH SCH ×5 (08:22→23:24)
--- NOTE | 2017-11-23 08:46 | RAD ---
HISTORY: angioedema COMPARISON: Chest radiographs 11/09/2017. FINDINGS: LUNGS: Limited airspace disease is seen at the left base with none on the right. Apparent resolution of right perihilar infiltrate. Diminished inspiratory effort noted in the interval. PLEURA: Minimal left pleural effusion is identified. None is seen at the right. No pneumothorax bilaterally. CARDIOVASCULAR: Normal. OSSEOUS STRUCTURES: Sternotomy wires identified once again. VISUALIZED UPPER ABDOMEN: Normal. OTHER FINDINGS: None. IMPRESSION: Diminished inspiratory volume with left basilar atelectasis or infiltrate noted in minimally. Resolution of right perihilar infiltrate Trace left pleural effusion is evident. None is seen the right. Exam otherwise stable.
[2017-11-23] MEDS: Levothyroxine 100 mcg (0.1 mg) Inj IVP SCH (09:40)
[2017-11-23] MEDS ORDERED: methylPREDNISolone 80 MG in Sodium Chloride 0.9% 50 ML IVPB SCH (10:00)
[2017-11-23] MEDS ORDERED: DiphenhydrAMINE 50 mg/ml Inj IM PRN (10:00)
--- NOTE | 2017-11-23 23:45 | CP.PCM.HP ---
History of Present Illness - History of Present Illness History of Present Illness: This is a 77 y/o male admitted for sudden swelling of the tongue. Claims that upon waking up he noted excessive swelling of the tongue hence called 911. He had no difficulty of breathing and has no wheezing. He has been on Lisinopril for the past few months. Has a hx of COPD, recent pneumonia, HTN, CAD CKD, myelodysplasia, anemia Past Patient History - Past Medical History & Family History Past Medical History?: Yes - Past Social History Smoking Status: Former Smoker Chewing Tobacco Use: No Cigar Use: No Alcohol: None Drugs: Denies Home Situation {Lives}: With Family - CARDIAC Hx Congestive Heart Failure: Yes Hx Hypercholesterolemia: Yes Hx Hypertension: Yes - PULMONARY Hx Asthma: Yes Hx Chronic Obstructive Pulmonary Disease (COPD): Yes Hx Pneumonia: Yes - NEUROLOGICAL Hx Neurological Disorder: Yes Other/Comment: Near syncope. - HEENT Hx HEENT Problems: Yes - RENAL Hx Chronic Kidney Disease: Yes - ENDOCRINE/METABOLIC Hx Hypothyroidism: Yes - HEMATOLOGICAL/ONCOLOGICAL Hx Anemia: Yes Hx Human Immunodeficiency Virus (HIV): No Other/Comment: Myelodysplastic syndrome - INTEGUMENTARY Hx Dermatological Problems: No - MUSCULOSKELETAL/RHEUMATOLOGICAL Hx Falls: Yes - GASTROINTESTINAL Hx Gastrointestinal Disorders: No - GENITOURINARY/GYNECOLOGICAL Hx Prostate Problems: Yes - PSYCHIATRIC Hx Psychophysiologic Disorder: No Hx Substance Use: No - SURGICAL HISTORY Hx Cardiac Catheterization: Yes Hx Coronary Artery Bypass Graft: Yes Other/Comment: Stents in both lower extremities - ANESTHESIA Hx Anesthesia: Yes Hx Anesthesia Reactions: No Hx Malignant Hyperthermia: No Meds Allergies/Adverse Reactions: Allergies Allergy/AdvReac Type Severity Reaction Status Date / Time No Known Allergies Allergy Verified 11/23/17 04:12 Results - Vital Signs Recent Vital Signs: Last Vital Signs Temp 97.6 F 11/23/17 16:00 Pulse 91 H 11/23/17 18:00 Resp 19 11/23/17 18:00 BP 114/70 11/23/17 18:00 Pulse Ox 98 11/23/17 18:00 - Labs Result Diagrams: 11/23/17 04:28 11/23/17 04:28 Labs: Laboratory Results - last 24 hr 11/23/17 11/23/17 11/23/17 04:28 04:28 04:28 WBC 1.4 L* RBC 2.85 L Hgb 8.4 L Hct 24.6 L MCV 86.4 D MCH 29.5 MCHC 34.1 RDW 14.0 Plt Count 38 L MPV 10.0 Neut % (Auto) 33.0 L Lymph % (Auto) 52.8 H [place] % (Auto) 13.2 H Eos % (Auto) 0.4 Baso % (Auto) 0.6 Neut # (Auto) 0.5 L Lymph # (Auto) 0.8 L [place] # (Auto) 0.2 Eos # (Auto) 0.0 Baso # (Auto) 0.0 PT 12.9 INR 1.2 APTT 33.5 Sodium 140 Potassium 4.7 Chloride 103 Carbon Dioxide 26 Anion Gap 16 BUN 45 H Creatinine 2.9 H Est GFR ( Amer) 26 Est GFR (Non-Af Amer) 21 Random Glucose 113 H Calcium 8.7 Total Bilirubin 0.3 AST 33 ALT 21 D Alkaline Phosphatase 48 Total Protein 6.6 Albumin 2.7 L Globulin 3.9 Albumin/Globulin Ratio 0.7 L Blood Type Antibody Screen BBK History Checked 11/23/17 04:29 WBC RBC Hgb Hct MCV MCH MCHC RDW Plt Count MPV Neut % (Auto) Lymph % (Auto) [place] % (Auto) Eos % (Auto) Baso % (Auto) Neut # (Auto) Lymph # (Auto) [place] # (Auto) Eos # (Auto) Baso # (Auto) PT INR APTT Sodium Potassium Chloride Carbon Dioxide Anion Gap BUN Creatinine Est GFR ( Amer) Est GFR (Non-Af Amer) Random Glucose Calcium Total Bilirubin AST ALT Alkaline Phosphatase Total Protein Albumin Globulin Albumin/Globulin Ratio Blood Type O POSITIVE Antibody Screen Negative BBK History Checked Patient has bt
[2017-11-24 01:08] LABS: HEMOGLOBIN 7.8 g/dL (12.0-18.0); MEAN CELL VOLUME 86.1 fl (80.0-94.0); MEAN CORPUSCULAR HEMOGLOBIN 28.7 pg (27.0-31.0); MEAN CORPUSCULAR HGB CONC 33.3 g/dL (33.0-37.0); RBC 2.72 Mil/uL (4.40-5.90); RED CELL DISTRIBUTION WIDTH 13.8 % (11.5-14.5)
[2017-11-24 01:18] LABS: CALCIUM 8.3 mg/dL (8.4-10.2); WHITE BLOOD COUNT 1.7 K/uL (4.8-10.8)
[2017-11-24 02:06] LABS: TROPONIN I 0.613 ng/mL (0.00-0.120)
[2017-11-24] MEDS: Albuterol 0.083% Inhal Sol (2.5 mg/3 mL) UD INH SCH ×5 (05:20→19:11)
[2017-11-24 06:13] LABS: TROPONIN I 0.546 ng/mL (0.00-0.120)
[2017-11-24] MEDS: Levothyroxine 100 mcg (0.1 mg) Inj IVP SCH (06:51)
--- NOTE | 2017-11-24 08:05 | RAD ---
PROCEDURE: CHEST RADIOGRAPH, 1 VIEW HISTORY: CP COMPARISON: Frontal chest radiograph 11/23/2017. FINDINGS: LUNGS: Trace left basilar atelectasis or infiltrate remains with minimal left pleural effusion remaining in question. Borderline patchy density right perihilar region. No right pleural effusion. No pneumothorax bilaterally. Cardiac size stable. Trachea is midline. No pulmonary vascular derangement appreciated. PLEURA: As above. CARDIOVASCULAR: As above. OSSEOUS STRUCTURES: No significant abnormalities. VISUALIZED UPPER ABDOMEN: Normal. OTHER FINDINGS: None. IMPRESSION: Diminished left basilar atelectasis or infiltrate with minimal residual noted. Minimal left pleural effusion in question. None at the right. Borderline patchy right perihilar density.
--- NOTE | 2017-11-24 08:55 | CP.CCUPN ---
CCU Subjective - Physician Review Events Since Last Encounter (Free Text): 11/24/17 16:50 The patient was Seen/interviewed and examined by me at the bedside during ICU round, Medical records reviewed and Management issues were discussed and formulated with the house staff. Events reviewed Doing better Saturation 96-99% on 2L nasal cannula Tongue swelling less, almost back to normal Started on PO diet and tolerating, will discontinue IV Fluid Holding Lisinopril Continue Benadryl, Pepcid and IV Methylprednisolone but will decrease dose Thank you Patient had an episode of chest pain this morning, EKG done showed sinus tachycardia, no acute changes, trop mildly elevated but trending down, scheduled for [facility] and will be evaluated by cardiology. CCU Objective - Vital Signs / Intake & Output Vital Signs (Last 4 hours): Vital Signs Temp Pulse Resp BP Pulse Ox 11/24/17 08:00 97.3 F L 118 H 14 125/27 L 99 11/24/17 06:00 111 H 15 115/81 98 - Physical Exam Head: Positive for: Atraumatic, Normocephalic. Negative for: Tenderness, Contusion, Swelling Pupils: Positive for: PERRL. Negative for: Sluggish, Non-Reactive Extroacular Muscles: Positive for: EOMI Conjunctiva: Positive for: Normal. Negative for: Injected, Icteric Ears: Positive for: Normal Mouth: Positive for: Moist Mucous Membranes Pharnyx: Positive for: Normal. Negative for: ERYTHEMA, EXUDATE Nose (Internal): Positive for: Normal Inspection Neck: Positive for: Normal Range of Motion, Trachea Midline. Negative for: Meningeal Signs, MIDLINE TENDERNESS, Paraspinal Tenderness, JVD, Lymphadenopathy , Bruit, Other Respiratory/Chest: Positive for: Clear to Auscultation, Good Air Exchange. Negative for: Respiratory Distress, Accessory Muscle Use Cardiovascular: Positive for: Regular Rate and Rhythm, Normal S1, S2, Peripheal Pulses Present. Negative for: Murmurs, Irregular Rhythm, Tachycardic, Bradycardic Abdomen: Positive for: Normal Bowel Sounds. Negative for: Tenderness, Distention, Peritoneal Signs Back: Positive for: Normal Inspection. Negative for: CVA Tenderness Neurological: Positive for: GCS=15, CN II-XII Intact, Speech Normal, Motor Func Grossly Intact, Normal Sensory Function Psychiatric: Positive for: Alert, Oriented x 3 - Medications Active Medications: Active Medications Generic Name Dose Route Start Last Admin Trade Name Freq PRN Reason Stop Dose Admin Albuterol Sulfate 2.5 mg 11/23/17 08:00 11/24/17 07:38 Albuterol 0.083% Inhal Zonia (2.5 Mg/3 Ml) Ud INH 2.5 mg RQ4 TOMÁS Administration Diphenhydramine HCl 50 mg 11/23/17 10:00 Benadryl IM Q6 PRN Allergy symptoms Famotidine 20 mg 11/23/17 09:00 11/24/17 08:45 Pepcid IVP 20 mg Q12 TOMÁS Administration Levothyroxine Sodium 44 mcg 11/23/17 06:30 11/24/17 06:51 Synthroid IVP 44 mcg DAILY@0630 TOMÁS Administration Methylprednisolone 80 mg 11/23/17 10:00 11/24/17 03:47 Solu-Medrol IV 80 mg Q6 TOMÁS Administration Nitroglycerin 0.4 mg 11/23/17 07:07 11/24/17 04:50 Nitrostat Sl Tab SL 0.4 mg Q5MIN PRN Administration chest pain - Patient Studies Lab Studies: Lab Studies 11/24/17 11/24/17 11/24/17 Range/Units 05:40 00:30 00:30 WBC 1.7 L* (4.8-10.8) K/uL RBC 2.72 L (4.40-5.90) Mil/uL Hgb 7.8 L (12.0-18.0) g/dL Hct 23.4 L (35.0-51.0) % MCV 86.1 (80.0-94.0) fl MCH 28.7 (27.0-31.0) pg MCHC 33.3 (33.0-37.0) g/dL RDW 13.8 (11.5-14.5) % Plt Count 39 L (130-400) K/uL Sodium 140 (132-148) mmol/l Potassium 4.0 (3.6-5.0) MMOL/L Chloride 107 (98-107) mmol/L Carbon Dioxide 22 (22-30) mmol/L Anion Gap 15 (10-20) BUN 52 H (9-20) mg/dl Creatinine 2.8 H (0.8-1.5) mg/dl Est GFR ( Amer) 27 Est GFR (Non-Af Amer) 22 Random Glucose 137 H (75-110) mg/dL Calcium 8.3 L (8.4-10.2) mg/dL Troponin I 0.5460 H* 0.6130 H* (0.00-0.120) ng/mL NT-Pro-B Natriuret Pep 3530 H (0-900) pg/ml Laboratory Results - last 24 hr 11/24/17 11/24/17 11/24/17 00:30 00:30 05:40 WBC 1.7 L* RBC 2.72 L Hgb 7.8 L Hct 23.4 L MCV 86.1 MCH 28.7 MCHC 33.3 RDW 13.8 Plt Count 39 L Sodium 140 Potassium 4.0 Chloride 107 Carbon Dioxide 22 Anion Gap 15 BUN 52 H Creatinine 2.8 H Est GFR ( Amer) 27 Est GFR (Non-Af Amer) 22 Random Glucose 137 H Calcium 8.3 L Troponin I 0.6130 H* 0.5460 H* NT-Pro-B Natriuret Pep 3530 H EKG/Cardiology Studies: Cardiology / EKG Studies 11/24/17 07:00 EKG [ELECTROCARDIOGRAM] Routine Comment: Mode Of Transportation: Reason For Exam: CP, elevated trop Review of Systems - Cardiovascular Cardiovascular: absent: As Per HPI, Acrocyanosis, Chest Pain, Chest Pain at Rest , Chest Pain with Activity, Claudication, Diaphoresis, Dyspnea, Dyspnea on Exertion, Edema, Irregular Heart Rhythm, Pain Radiating to Arm/Neck/Jaw, Leg Edema, Leg Ulcers, Lightheadedness, Orthopnea, Palpitations, Paroxysmal Nocturnal Dyspnea, Pedal Edema, Radiating Pain, Rapid Heart Rate, Slow Heart Rate, Syncope, Other, UNREMARKABLE - Respiratory Respiratory: absent: As Per HPI, Cough, Dyspnea, Hemoptysis, Dyspnea on Exertion , Wheezing, Snoring, Stridor, Pain on Inspiration, Chest Congestion, Excessive Mucous Production, Change in Mucous Color, Pain with Coughing, Other, UNREMARKABLE - Gastrointestinal Gastrointestinal: absent: As Per HPI, Abdominal Pain, Belching, Bloating, Change in Bowel Habits, Change in Stool Character, Coffee Ground Emesis, Constipation, Cramping, Diarrhea, Dyspepsia, Dysphagia, Early Satiety, Excessive Flatus, Fecal Incontinence, Heartburn, Hematemesis, Hematochezia, Loose Stools, Melena, Nausea, Odynophagia, Temesmus, Vomiting, Other, UNREMARKABLE Critical Care Progress Note - Nutrition Nutrition: Nutrition Category Date Time Status Heart Healthy Diet [DIET] Diets 11/24/17 Breakfast Active Assessment/Plan (1) Allergic reaction Current Visit: No Status: Acute Comment: Continue Benadryl, Pepcid and IV Methylprednisolone (2) ACS (acute coronary syndrome) Current Visit: Yes Status: Acute Comment: Thank you Patient had an episode of chest pain this morning, EKG done showed sinus tachycardia, no acute changes , trop mildly elevated but trending down, scheduled for [facility] and will be evaluated by cardiology.
--- NOTE | 2017-11-24 09:38 | CP.PCM.CON ---
History of Present Illness - History of Present Illness History of Present Illness: 77 year old male with a history of COPD, HTN, CAD, MDS on weekly transfusions, admitted with swelling of his tongue, with pancytopenia. The patient reports to increased swelling of his tongue which prompted him to come to the hospital. He denies shortness of breath or chest pain. He reports to going into [place] for weekly transfusions due to his blood condition. He denies abnormal bleeding and bruising. Past medical history: COPD, HTN, CAD, MDS Past surgical history: CABG Family history: Denies hematologic and oncologic problems Social history: Denies tobacco, alcohol, and illicit drug use. Allergies: NKA Review of systems: All remaining review of systems including HEENT, cardiovascular, respiratory, gastrointestinal, genitourinary, musculoskeletal, dermatologic, neurologic, and psychiatric are negative unless mentioned in the HPI. Past Patient History - Past Medical History & Family History Past Medical History?: Yes - Past Social History Smoking Status: Former Smoker Chewing Tobacco Use: No Cigar Use: No Alcohol: None Drugs: Denies Home Situation {Lives}: With Family - CARDIAC Hx Congestive Heart Failure: Yes Hx Hypercholesterolemia: Yes Hx Hypertension: Yes - PULMONARY Hx Asthma: Yes Hx Chronic Obstructive Pulmonary Disease (COPD): Yes Hx Pneumonia: Yes - NEUROLOGICAL Hx Neurological Disorder: Yes Other/Comment: Near syncope. - HEENT Hx HEENT Problems: Yes - RENAL Hx Chronic Kidney Disease: Yes - ENDOCRINE/METABOLIC Hx Hypothyroidism: Yes - HEMATOLOGICAL/ONCOLOGICAL Hx Anemia: Yes Hx Human Immunodeficiency Virus (HIV): No Other/Comment: Myelodysplastic syndrome - INTEGUMENTARY Hx Dermatological Problems: No - MUSCULOSKELETAL/RHEUMATOLOGICAL Hx Falls: Yes - GASTROINTESTINAL Hx Gastrointestinal Disorders: No - GENITOURINARY/GYNECOLOGICAL Hx Prostate Problems: Yes - PSYCHIATRIC Hx Psychophysiologic Disorder: No Hx Substance Use: No - SURGICAL HISTORY Hx Cardiac Catheterization: Yes Hx Coronary Artery Bypass Graft: Yes Other/Comment: Stents in both lower extremities - ANESTHESIA Hx Anesthesia: Yes Hx Anesthesia Reactions: No Hx Malignant Hyperthermia: No Meds Allergies/Adverse Reactions: Allergies Allergy/AdvReac Type Severity Reaction Status Date / Time No Known Allergies Allergy Verified 11/23/17 04:12 - Medications Medications: Current Medications Albuterol Sulfate (Albuterol 0.083% Inhal Zonia (2.5 Mg/3 Ml) Ud) 2.5 mg INH RQ4 [facility] Last Admin: 11/24/17 07:38 Dose: 2.5 mg Diphenhydramine HCl (Benadryl) 50 mg IM Q6 PRN PRN Reason: Allergy symptoms Famotidine (Pepcid) 20 mg IVP Q12 [facility] Last Admin: 11/24/17 08:45 Dose: 20 mg Levothyroxine Sodium (Synthroid) 44 mcg IVP DAILY@0630 [facility] Last Admin: 11/24/17 06:51 Dose: 44 mcg Methylprednisolone (Solu-Medrol) 80 mg IV Q6 [facility] Last Admin: 11/24/17 09:00 Dose: 80 mg Nitroglycerin (Nitrostat Sl Tab) 0.4 mg SL Q5MIN PRN PRN Reason: chest pain Last Admin: 11/24/17 04:50 Dose: 0.4 mg Physical Exam - Head Exam Head Exam: ATRAUMATIC - Eye Exam Eye Exam: Normal appearance - ENT Exam ENT Exam: Mucous Membranes Dry - Respiratory Exam Respiratory Exam: NORMAL BREATHING PATTERN - Cardiovascular Exam Cardiovascular Exam: +S1, +S2 - GI/Abdominal Exam GI & Abdominal Exam: Normal Bowel Sounds - Neurological Exam Neurological exam: Oriented x3 - Psychiatric Exam Psychiatric exam: Normal Affect, Normal Mood - Skin Skin Exam: Warm Results - Vital Signs Recent Vital Signs: Last Vital Signs Temp 97.3 F L 11/24/17 08:00 Pulse 118 H 11/24/17 08:00 Resp 14 11/24/17 08:00 BP 125/27 L 11/24/17 08:00 Pulse Ox 99 11/24/17 08:00 - Labs Result Diagrams: 11/25/17 04:35 11/25/17 04:35 Labs: Laboratory Results - last 24 hr 11/24/17 11/24/17 11/24/17 00:30 00:30 05:40 WBC 1.7 L* RBC 2.72 L Hgb 7.8 L Hct 23.4 L MCV 86.1 MCH 28.7 MCHC 33.3 RDW 13.8 Plt Count 39 L Sodium 140 Potassium 4.0 Chloride 107 Carbon Dioxide 22 Anion Gap 15 BUN 52 H Creatinine 2.8 H Est GFR ( Amer) 27 Est GFR (Non-Af Amer) 22 Random Glucose 137 H Calcium 8.3 L Troponin I 0.6130 H* 0.5460 H* NT-Pro-B Natriuret Pep 3530 H Assessment & Plan (1) Pancytopenia Assessment and Plan: pt reports to being diagnosed with MDS recquires weekly PRBC transfusion will give 2U PRBC today Status: Chronic (2) Myelodysplasia (myelodysplastic syndrome) Assessment and Plan: outpatient f/u Thank you for this interesting consult. Status: Chronic
--- NOTE | 2017-11-24 09:49 | CARD ---
APPROVED REPORT EKG Measurement Heart [id number] <Conclusion> Sinus tachycardia Nonspecific T wave abnormality Abnormal ECG
--- NOTE | 2017-11-24 12:09 | CP.PCM.PN ---
Addendum entered and electronically signed by Quentin Kenny MD 11/24/17 13: 59: CHF chronic, no an active problem during current admission. C/W Home meds Original Note: <Quentin Kenny - Last Filed: 11/24/17 12:52> Subjective - Date & Time of Evaluation Date of Evaluation: 11/24/17 Time of Evaluation: 10:20 - Subjective Subjective: Stable. Tongue swelling resolved. No acute distress. Admitted CP last night that resolved. Denies CP or SOB at this time. Tolerating PO. No difficulty breathing. Afebrile Objective - Vital Signs/Intake and Output Vital Signs (last 24 hours): Temp Pulse Resp BP Pulse Ox 97.3 F L 115 H 12 142/68 99 11/24/17 08:00 11/24/17 10:00 11/24/17 10:00 11/24/17 10:00 11/24/17 10:00 - Medications Medications: Current Medications Albuterol Sulfate (Albuterol 0.083% Inhal Zonia (2.5 Mg/3 Ml) Ud) 2.5 mg INH RQ4 [facility] Last Admin: 11/24/17 11:06 Dose: 2.5 mg Diphenhydramine HCl (Benadryl) 50 mg IM Q6 PRN PRN Reason: Allergy symptoms Famotidine (Pepcid) 20 mg IVP Q12 [facility] Last Admin: 11/24/17 08:45 Dose: 20 mg Levothyroxine Sodium (Synthroid) 44 mcg IVP DAILY@0630 [facility] Last Admin: 11/24/17 06:51 Dose: 44 mcg Methylprednisolone (Solu-Medrol) 80 mg IV Q6 [facility] Last Admin: 11/24/17 09:00 Dose: 80 mg Nitroglycerin (Nitrostat Sl Tab) 0.4 mg SL Q5MIN PRN PRN Reason: chest pain Last Admin: 11/24/17 04:50 Dose: 0.4 mg - Labs Labs: 11/24/17 00:30 11/24/17 00:30 PT 12.9 Seconds (9.8-13.1) 11/23/17 04:28 INR 1.2 (0.9-1.2) 11/23/17 04:28 APTT 33.5 Seconds (25.6-37.1) 11/23/17 04:28 - Constitutional Appears: Non-toxic, No Acute Distress - Eye Exam Eye Exam: EOMI, PERRL - ENT Exam ENT Exam: Mucous Membranes Moist - Respiratory Exam Respiratory Exam: Decreased Breath Sounds, Clear to Ausculation Bilateral. absent: Rales, Wheezes, Respiratory Distress - Cardiovascular Exam Cardiovascular Exam: REGULAR RHYTHM, +S1, +S2. absent: Gallop - GI/Abdominal Exam GI & Abdominal Exam: Soft, Normal Bowel Sounds. absent: Tenderness, Rebound - Neurological Exam Neurological Exam: Alert, Awake, Oriented x3. absent: Motor Sensory Deficit - Psychiatric Exam Psychiatric exam: Normal Affect, Normal Mood - Skin Skin Exam: Pallor, Warm Assessment and Plan - Assessment and Plan (Free Text) Assessment: Angioedema resolved. DC solumedrol, keep benadryl PRN Avoid ACEi MDS: Hemonc consult appreciated Pancitopenia, chronic. F/U hem-onc recs COPD stable, c/w current treatment CAD/Elevated troponins: Episode of CP last night, has Hx of Heart Sx 15 y/a. Trops x2 elevated. EKG this morning non specific T-wave changes. Cardiology consulted: Dr Kern spoke with Dr Perkins this morning who will see patient today. F/U recs <Riley Kern - Last Filed: 11/24/17 14:52> Objective - Vital Signs/Intake and Output Vital Signs (last 24 hours): Temp Pulse Resp BP Pulse Ox 98.9 F 103 H 16 149/70 100 11/24/17 12:00 11/24/17 14:00 11/24/17 14:00 11/24/17 14:00 11/24/17 14:00 - Medications Medications: Current Medications Albuterol Sulfate (Albuterol 0.083% Inhal Zonia (2.5 Mg/3 Ml) Ud) 2.5 mg INH RQ4 [facility] Last Admin: 11/24/17 11:06 Dose: 2.5 mg Amlodipine Besylate (Norvasc) 5 mg PO HS [facility] Atorvastatin Calcium (Lipitor) 20 mg PO HS [facility] Diphenhydramine HCl (Benadryl) 50 mg IM Q6 PRN PRN Reason: Allergy symptoms Famotidine (Pepcid) 20 mg IVP Q12 [facility] Last Admin: 11/24/17 08:45 Dose: 20 mg Hydrochlorothiazide (Microzide) 12.5 mg PO DAILY [facility] Isosorbide Mononitrate (Imdur) 120 mg PO HS [facility] Levothyroxine Sodium (Synthroid) 44 mcg IVP DAILY@0630 [facility] Last Admin: 11/24/17 06:51 Dose: 44 mcg Metoprolol Succinate (Toprol Xl) 25 mg PO DAILY [facility] Nitroglycerin (Nitrostat Sl Tab) 0.4 mg SL Q5MIN PRN PRN Reason: chest pain Last Admin: 11/24/17 04:50 Dose: 0.4 mg Zolpidem Tartrate (Ambien) 5 mg PO HS [facility] - Labs Labs: 11/24/17 00:30 11/24/17 00:30 PT 12.9 Seconds (9.8-13.1) 11/23/17 04:28 INR 1.2 (0.9-1.2) 11/23/17 04:28 APTT 33.5 Seconds (25.6-37.1) 11/23/17 04:28 Assessment and Plan - Assessment and Plan (Free Text) Plan: Pt seen on rounds with resident. Agree with above plan.
--- NOTE | 2017-11-24 13:45 | PQF GENQUE ---
Dr. Kern, 2 queries: Please specify the type and acuity of heart failure in your progress notes: versus hx. of CHF and not currently being treated versus CHF ruled out 1. TYPE: Combined systolic and diastolic Heart failure with reduced ejection fraction and diastolic dysfunction Diastolic HFpEF Systolic HFrEF Left heart failure Right heart failure Right heart failure due to left heart failure High Output failure End stage heart failure Other (please specify) OR Clinically unable to determine OR Unknown 2. ACUITY: Acute Chronic Acute on chronic Other (please specify) OR Clinically unable to determine OR Unknown ProBNP: 3530 CXR: Imp:Diminished inspiratory volume with left basilar atelectasis or infiltrate noted in minimally. Resolution of right perihilar infiltrate Trace left pleural effusion is evident. None is seen the right. Exam otherwise stable 11/24 CXR: Imp.:Diminished left basilar atelectasis or infiltrate with minimal residual noted. Minimal left pleural effusion in question. None at the right. Borderline patchy right perihilar density. H and P and Consult notes: Hx Congestive Heart Failure: Yes Echo ordered 11/24/17 This form is a permanent part of the medical record Clarification of your documentation is requested to better reflect the severity of illness and intensity of treatment of your patient. Indicators present [] Specify: [] [] Specify: [] [] Specify: [] [] Specify: [] Location in the medical record that reflects the above clinical findings: [] Treatment Provided: [] PHYSICIAN'S RESPONSE Based on your medical judgment of the clinical indicators outlined above please clarify the following: [] Practitioner response [] If unable to determine, please check the box, sign and date. Present On Admission (POA) Indicator: [] Present at the time of admission [] Not present at the time of admission [] Clinically Undetermined In responding to this query, please exercise your independent professional judgment. The fact that a question is asked does not imply that any particular answer is desired or expected. Thank you for your clarification on this documentation. If you have any questions please call. * Thank you, Keri Diaz RN ext. #[phone] MTDD
--- NOTE | 2017-11-24 13:59 | PQF GENQUE ---
Dr. Kern, Documentation Clarification: After the work up is completed: Etiology of the Elevated Troponin levels?: if known: after the work up is completed OR: Unable to determine OR: Other explanation of clinical finding 11/24: Troponin: 0.6130->0.5460 11/24 Resident Progress note: CAD/Elevated troponins: Episode of CP last night, has Hx of Heart Sx 15 y/a. Trops x2 elevated. EKG this morning non specific T- wave changes. Cardiology consulted: Dr Kern spoke with Dr Perkins this morning who will see patient today. F/U recs This form is a permanent part of the medical record Clarification of your documentation is requested to better reflect the severity of illness and intensity of treatment of your patient. Indicators present [] Specify: [] [] Specify: [] [] Specify: [] [] Specify: [] Location in the medical record that reflects the above clinical findings: [] Treatment Provided: [] PHYSICIAN'S RESPONSE Based on your medical judgment of the clinical indicators outlined above please clarify the following: [] Practitioner response [] If unable to determine, please check the box, sign and date. Present On Admission (POA) Indicator: [] Present at the time of admission [] Not present at the time of admission [] Clinically Undetermined In responding to this query, please exercise your independent professional judgment. The fact that a question is asked does not imply that any particular answer is desired or expected. Thank you for your clarification on this documentation. If you have any questions please call. * Thank you, Keri Diaz RN ext. #[phone] MTDD
--- NOTE | 2017-11-24 18:14 | CP.PCM.CON ---
History of Present Illness - History of Present Illness History of Present Illness: patient seen/examined. full consult to follow. angioedema due to lisino[pril. will d/c. chest pain due to anemia in the setting of CAD. recommend blood transufusion. no heparin at this time. will check echocardiogram Past Patient History - Past Medical History & Family History Past Medical History?: Yes - Past Social History Smoking Status: Former Smoker Chewing Tobacco Use: No Cigar Use: No Alcohol: None Drugs: Denies Home Situation {Lives}: With Family - CARDIAC Hx Congestive Heart Failure: Yes Hx Hypercholesterolemia: Yes Hx Hypertension: Yes - PULMONARY Hx Asthma: Yes Hx Chronic Obstructive Pulmonary Disease (COPD): Yes Hx Pneumonia: Yes - NEUROLOGICAL Hx Neurological Disorder: Yes Other/Comment: Near syncope. - HEENT Hx HEENT Problems: Yes - RENAL Hx Chronic Kidney Disease: Yes - ENDOCRINE/METABOLIC Hx Hypothyroidism: Yes - HEMATOLOGICAL/ONCOLOGICAL Hx Anemia: Yes Hx Human Immunodeficiency Virus (HIV): No Other/Comment: Myelodysplastic syndrome - INTEGUMENTARY Hx Dermatological Problems: No - MUSCULOSKELETAL/RHEUMATOLOGICAL Hx Falls: Yes - GASTROINTESTINAL Hx Gastrointestinal Disorders: No - GENITOURINARY/GYNECOLOGICAL Hx Prostate Problems: Yes - PSYCHIATRIC Hx Psychophysiologic Disorder: No Hx Substance Use: No - SURGICAL HISTORY Hx Cardiac Catheterization: Yes Hx Coronary Artery Bypass Graft: Yes Other/Comment: Stents in both lower extremities - ANESTHESIA Hx Anesthesia: Yes Hx Anesthesia Reactions: No Hx Malignant Hyperthermia: No Meds Allergies/Adverse Reactions: Allergies Allergy/AdvReac Type Severity Reaction Status Date / Time No Known Allergies Allergy Verified 11/23/17 04:12 - Medications Medications: Current Medications Albuterol Sulfate (Albuterol 0.083% Inhal Zonia (2.5 Mg/3 Ml) Ud) 2.5 mg INH RQ4 [facility] Last Admin: 11/24/17 15:27 Dose: 2.5 mg Amlodipine Besylate (Norvasc) 5 mg PO HS [facility] Atorvastatin Calcium (Lipitor) 20 mg PO HS [facility] Famotidine (Pepcid) 20 mg IVP Q12 [facility] Last Admin: 11/24/17 08:45 Dose: 20 mg Hydrochlorothiazide (Microzide) 12.5 mg PO DAILY [facility] Isosorbide Mononitrate (Imdur) 120 mg PO HS [facility] Levothyroxine Sodium (Synthroid) 44 mcg IVP DAILY@0630 [facility] Last Admin: 11/24/17 06:51 Dose: 44 mcg Metoprolol Succinate (Toprol Xl) 25 mg PO DAILY [facility] Nitroglycerin (Nitrostat Sl Tab) 0.4 mg SL Q5MIN PRN PRN Reason: chest pain Last Admin: 11/24/17 04:50 Dose: 0.4 mg Zolpidem Tartrate (Ambien) 5 mg PO [facility] Results - Vital Signs Recent Vital Signs: Last Vital Signs Temp 97.8 F 11/24/17 16:00 Pulse 103 H 11/24/17 18:00 Resp 19 11/24/17 18:00 BP 140/72 11/24/17 18:00 Pulse Ox 99 11/24/17 18:00 - Labs Result Diagrams: 11/24/17 00:30 11/24/17 00:30 Labs: Laboratory Results - last 24 hr 11/23/17 11/24/17 11/24/17 04:29 00:30 00:30 WBC 1.7 L* RBC 2.72 L Hgb 7.8 L Hct 23.4 L MCV 86.1 MCH 28.7 MCHC 33.3 RDW 13.8 Plt Count 39 L Sodium 140 Potassium 4.0 Chloride 107 Carbon Dioxide 22 Anion Gap 15 BUN 52 H Creatinine 2.8 H Est GFR ( Amer) 27 Est GFR (Non-Af Amer) 22 Random Glucose 137 H Calcium 8.3 L Troponin I 0.6130 H* NT-Pro-B Natriuret Pep Blood Type O POSITIVE Antibody Screen Negative Crossmatch See Detail BBK History Checked Patient has bt 11/24/17 11/24/17 05:40 14:20 WBC RBC Hgb Hct MCV MCH MCHC RDW Plt Count Sodium Potassium Chloride Carbon Dioxide Anion Gap BUN Creatinine Est GFR ( Amer) Est GFR (Non-Af Amer) Random Glucose Calcium Troponin I 0.5460 H* 0.5440 H* NT-Pro-B Natriuret Pep 3530 H Blood Type Antibody Screen Crossmatch BBK History Checked
--- NOTE | 2017-11-24 18:14 | CP.PCM.CON ---
Past Patient History - Past Medical History & Family History Past Medical History?: Yes - Past Social History Smoking Status: Former Smoker Chewing Tobacco Use: No Cigar Use: No Alcohol: None Drugs: Denies Home Situation {Lives}: With Family - CARDIAC Hx Congestive Heart Failure: Yes Hx Hypercholesterolemia: Yes Hx Hypertension: Yes - PULMONARY Hx Asthma: Yes Hx Chronic Obstructive Pulmonary Disease (COPD): Yes Hx Pneumonia: Yes - NEUROLOGICAL Hx Neurological Disorder: Yes Other/Comment: Near syncope. - HEENT Hx HEENT Problems: Yes - RENAL Hx Chronic Kidney Disease: Yes - ENDOCRINE/METABOLIC Hx Hypothyroidism: Yes - HEMATOLOGICAL/ONCOLOGICAL Hx Anemia: Yes Hx Human Immunodeficiency Virus (HIV): No Other/Comment: Myelodysplastic syndrome - INTEGUMENTARY Hx Dermatological Problems: No - MUSCULOSKELETAL/RHEUMATOLOGICAL Hx Falls: Yes - GASTROINTESTINAL Hx Gastrointestinal Disorders: No - GENITOURINARY/GYNECOLOGICAL Hx Prostate Problems: Yes - PSYCHIATRIC Hx Psychophysiologic Disorder: No Hx Substance Use: No - SURGICAL HISTORY Hx Cardiac Catheterization: Yes Hx Coronary Artery Bypass Graft: Yes Other/Comment: Stents in both lower extremities - ANESTHESIA Hx Anesthesia: Yes Hx Anesthesia Reactions: No Hx Malignant Hyperthermia: No Meds Allergies/Adverse Reactions: Allergies Allergy/AdvReac Type Severity Reaction Status Date / Time No Known Allergies Allergy Verified 11/23/17 04:12 - Medications Medications: Current Medications Albuterol Sulfate (Albuterol 0.083% Inhal Zonia (2.5 Mg/3 Ml) Ud) 2.5 mg INH RQ4 [facility] Last Admin: 11/24/17 15:27 Dose: 2.5 mg Amlodipine Besylate (Norvasc) 5 mg PO HS [facility] Atorvastatin Calcium (Lipitor) 20 mg PO HS [facility] Famotidine (Pepcid) 20 mg IVP Q12 [facility] Last Admin: 11/24/17 08:45 Dose: 20 mg Hydrochlorothiazide (Microzide) 12.5 mg PO DAILY [facility] Isosorbide Mononitrate (Imdur) 120 mg PO HS [facility] Levothyroxine Sodium (Synthroid) 44 mcg IVP DAILY@0630 [facility] Last Admin: 11/24/17 06:51 Dose: 44 mcg Metoprolol Succinate (Toprol Xl) 25 mg PO DAILY [facility] Nitroglycerin (Nitrostat Sl Tab) 0.4 mg SL Q5MIN PRN PRN Reason: chest pain Last Admin: 11/24/17 04:50 Dose: 0.4 mg Zolpidem Tartrate (Ambien) 5 mg PO HS [facility] Results - Vital Signs Recent Vital Signs: Last Vital Signs Temp 97.8 F 11/24/17 16:00 Pulse 103 H 11/24/17 18:00 Resp 19 11/24/17 18:00 BP 140/72 11/24/17 18:00 Pulse Ox 99 11/24/17 18:00 - Labs Result Diagrams: 11/24/17 00:30 11/24/17 00:30 Labs: Laboratory Results - last 24 hr 11/23/17 11/24/17 11/24/17 04:29 00:30 00:30 WBC 1.7 L* RBC 2.72 L Hgb 7.8 L Hct 23.4 L MCV 86.1 MCH 28.7 MCHC 33.3 RDW 13.8 Plt Count 39 L Sodium 140 Potassium 4.0 Chloride 107 Carbon Dioxide 22 Anion Gap 15 BUN 52 H Creatinine 2.8 H Est GFR ( Amer) 27 Est GFR (Non-Af Amer) 22 Random Glucose 137 H Calcium 8.3 L Troponin I 0.6130 H* NT-Pro-B Natriuret Pep Blood Type O POSITIVE Antibody Screen Negative Crossmatch See Detail BBK History Checked Patient has bt 11/24/17 11/24/17 05:40 14:20 WBC RBC Hgb Hct MCV MCH MCHC RDW Plt Count Sodium Potassium Chloride Carbon Dioxide Anion Gap BUN Creatinine Est GFR ( Amer) Est GFR (Non-Af Amer) Random Glucose Calcium Troponin I 0.5460 H* 0.5440 H* NT-Pro-B Natriuret Pep 3530 H Blood Type Antibody Screen Crossmatch BBK History Checked
[2017-11-24 20:25] VITALS: TEMP 98.2
[2017-11-25] MEDS: Albuterol 0.083% Inhal Sol (2.5 mg/3 mL) UD INH SCH ×2 (00:05→05:12)
[2017-11-25 05:14] LABS: HEMOGLOBIN 8.9 g/dL (12.0-18.0); MEAN CELL VOLUME 86.2 fl (80.0-94.0); MEAN CORPUSCULAR HEMOGLOBIN 28.6 pg (27.0-31.0); MEAN CORPUSCULAR HGB CONC 33.2 g/dL (33.0-37.0); RBC 3.1 Mil/uL (4.40-5.90); WHITE BLOOD COUNT 2.7 K/uL (4.8-10.8)
[2017-11-25 05:20] LABS: CALCIUM 8.1 mg/dL (8.4-10.2)
[2017-11-25] MEDS: Levothyroxine 100 mcg (0.1 mg) Inj IVP SCH (06:27)
[2017-11-25 07:09] VITALS: BP 167/66; PULSE 98; RESP 26
[2017-11-25] MEDS ORDERED: Metoprolol Succinate 25 mg XL Tab PO SCH (09:00)
--- NOTE | 2017-11-25 09:44 | CP.PCM.DIS ---
Provider - Provider Date of Admission: 11/23/17 04:29 Attending physician: Riley Kern MD Primary care physician: Riley Kern MD Consults: Cardiology Hemonc Time Spent in preparation of Discharge (in minutes): 30 Diagnosis - Discharge Diagnosis (1) Angioedema due to angiotensin converting enzyme inhibitor (MIKHAIL-I) Status: Acute Comment: Resolved. ACEi stopped (2) Chronic renal disease, stage 4, severely decreased glomerular filtration rate (GFR) between 15-29 mL/min/1.73 square meter Status: Chronic (3) Myelodysplasia (myelodysplastic syndrome) Status: Chronic Comment: S/p 2 units of PRBC transfusion. (4) Elevated troponin Status: Acute Comment: Evaluated by Cardio. Likely due to increaed cardiac demands due to anemia Hospital Course - Lab Results Lab Results: Micro Results 11/23/17 07:55 Naris MRSA Culture (Admit) - Final MRSA NOT DETECTED Most Recent Lab Values WBC 2.7 K/uL (4.8-10.8) L D 11/25/17 04:35 RBC 3.10 Mil/uL (4.40-5.90) L 11/25/17 04:35 Hgb 8.9 g/dL (12.0-18.0) L 11/25/17 04:35 Hct 26.7 % (35.0-51.0) L 11/25/17 04:35 MCV 86.2 fl (80.0-94.0) 11/25/17 04:35 MCH 28.6 pg (27.0-31.0) 11/25/17 04:35 MCHC 33.2 g/dL (33.0-37.0) 11/25/17 04:35 RDW 14.0 % (11.5-14.5) 11/25/17 04:35 Plt Count 48 K/uL (130-400) L 11/25/17 04:35 MPV 10.0 fl (7.2-11.7) 11/23/17 04:28 Neut % (Auto) 33.0 % (50.0-75.0) L 11/23/17 04:28 Lymph % (Auto) 52.8 % (20.0-40.0) H 11/23/17 04:28 Rains % (Auto) 13.2 % (0.0-10.0) H 11/23/17 04:28 Eos % (Auto) 0.4 % (0.0-4.0) 11/23/17 04:28 Baso % (Auto) 0.6 % (0.0-2.0) 11/23/17 04:28 Neut # (Auto) 0.5 K/uL (1.8-7.0) L 11/23/17 04:28 Lymph # (Auto) 0.8 K/uL (1.0-4.3) L 11/23/17 04:28 Rains # (Auto) 0.2 K/uL (0.0-0.8) 11/23/17 04:28 Eos # (Auto) 0.0 K/uL (0.0-0.7) 11/23/17 04:28 Baso # (Auto) 0.0 K/uL (0.0-0.2) 11/23/17 04:28 PT 12.9 Seconds (9.8-13.1) 11/23/17 04:28 INR 1.2 (0.9-1.2) 11/23/17 04:28 APTT 33.5 Seconds (25.6-37.1) 11/23/17 04:28 Sodium 142 mmol/l (132-148) 11/25/17 04:35 Potassium 4.1 MMOL/L (3.6-5.0) 11/25/17 04:35 Chloride 108 mmol/L (98-107) H 11/25/17 04:35 Carbon Dioxide 22 mmol/L (22-30) 11/25/17 04:35 Anion Gap 16 (10-20) 11/25/17 04:35 BUN 58 mg/dl (9-20) H 11/25/17 04:35 Creatinine 2.9 mg/dl (0.8-1.5) H 11/25/17 04:35 Est GFR ( Amer) 11/25/17 04:35 Est GFR (Non-Af Amer) 11/25/17 04:35 Random Glucose 119 mg/dL (75-110) H 11/25/17 04:35 Calcium 8.1 mg/dL (8.4-10.2) L 11/25/17 04:35 Total Bilirubin 0.3 mg/dl (0.2-1.3) 11/23/17 04:28 AST 33 U/L (17-59) 11/23/17 04:28 ALT 21 U/L (21-72) D 11/23/17 04:28 Alkaline Phosphatase 48 U/L (38-126) 11/23/17 04:28 Troponin I 0.5440 ng/mL (0.00-0.120) H* 11/24/17 14:20 NT-Pro-B Natriuret Pep 3530 pg/ml (0-900) H 11/24/17 05:40 Total Protein 6.6 G/DL (6.3-8.2) 11/23/17 04:28 Albumin 2.7 g/dL (3.5-5.0) L 11/23/17 04:28 Globulin 3.9 gm/dL (2.2-3.9) 11/23/17 04:28 Albumin/Globulin Ratio 0.7 (1.0-2.1) L 11/23/17 04:28 Blood Type O POSITIVE 11/23/17 04:29 Antibody Screen Negative 11/23/17 04:29 Crossmatch See Detail 11/23/17 04:29 BBK History Checked Patient has bt 11/23/17 04:29 - Hospital Course Hospital Course: 77 y/o M with multiple co-morbidities was admitted to hosp for angioedema. Patient received bandryl and steroids IV and ACEi were stopped. Swelling resolved overnight but patient was found to have very low hgb and elevated tropponins. Cardiology and Hem-Onc were consulted and patient received 2 units of PRBC with post transfusion hgb improved. As per Cardiology elevated trops likely due to increased cardiac demands due to anemia. Patient decided to leave AMA director of primary because of the "storm" before finishing work up or medically cleared. Discharge Plan - Follow Up Plan Condition: FAIR Disposition: AGAINST MEDICAL ADVICE Additional Instructions: Called patient after leaving AMA to confirm with him that he should stop taking ACEi and to f/u as outpatient at the clinic next week. Referrals: Riley Kern MD [Primary Care Provider] -
[2017-11-26 18:41] VITALS: O2SAT 98
== END 2017-11-25 07:00 | disposition left against medical advice (07) | DRG 916 ==
LOC: H.ER 04:09 → H.ERHOLD 04:29 → H.ICU/CCU 05:26
PROVIDERS: ADMIT Family Medicine; ATTEND Family Medicine
PROC: 3E0234Z Introduction of Serum, Toxoid and Vaccine into Muscle, Percutaneous Approach (ICD-10-PCS; 2017-11-23)
PROC: 30233N1 Transfusion of Nonautologous Red Blood Cells into Peripheral Vein, Percutaneous Approach (ICD-10-PCS; principal; 2017-11-24)
DX: T78.3XXA Angioneurotic edema, initial encounter (principal); N18.4 Chronic kidney disease, stage 4 (severe); D61.818 Other pancytopenia; I24.9 Acute ischemic heart disease, unspecified; I13.0 Hypertensive heart and chronic kidney disease with heart failure and stage 1 through stage 4 chronic kidney disease, or unspecified chronic kidney disease; T46.4X5A Adverse effect of angiotensin-converting-enzyme inhibitors, initial encounter; J44.9 Chronic obstructive pulmonary disease, unspecified; I50.9 Heart failure, unspecified; D46.9 Myelodysplastic syndrome, unspecified; E03.9 Hypothyroidism, unspecified; I25.10 Atherosclerotic heart disease of native coronary artery without angina pectoris; I73.9 Peripheral vascular disease, unspecified; E78.00 Pure hypercholesterolemia, unspecified; N40.0 Benign prostatic hyperplasia without lower urinary tract symptoms; G47.30 Sleep apnea, unspecified; M10.9 Gout, unspecified; R00.0 Tachycardia, unspecified; Z23 Encounter for immunization; Z87.01 Personal history of pneumonia (recurrent); Z95.1 Presence of aortocoronary bypass graft; Z87.891 Personal history of nicotine dependence

== ENCOUNTER 2018-03-18 18:23 | Observation (INO) | payer MEDICARE ==
[2018-03-18 18:23] VITALS: BMI 27.8
--- NOTE | 2018-03-18 18:59 | ED PDOC ---
HPI: Chest Pain Time Seen by Provider: 03/18/18 18:32 Chief Complaint (Nursing): Chest Pain Chief Complaint (Provider): Chest Pain History Per: Patient History/Exam Limitations: no limitations Onset/Duration Of Symptoms: Hrs, Days (this morning) Current Symptoms Are (Timing): Still Present Quality: "Pain" Additional Complaint(s): 77 year old male with a history of CAD, s/p CABG, s/p stent placement presents to the ED with intermittent episodes of left sided chest pain radiating left arm onset this morning. He denies shortness of breath, nausea, vomiting, or any other medical complaints. PMD: Dr. Riley Kern Past Medical History Reviewed: Historical Data, Nursing Documentation, Vital Signs Vital Signs: Last Vital Signs Temp 99.8 F H 03/18/18 18:26 Pulse 109 H 03/18/18 18:26 Resp 18 03/18/18 18:26 BP 127/72 03/18/18 18:26 Pulse Ox 96 03/18/18 19:00 - Medical History PMH: Anemia, Asthma, CAD, CHF, COPD, HTN, Hypercholesterolemia, Hyperlipidemia, Hypothyroidism, Pneumonia, Chronic Kidney Disease Denies: HIV - Surgical History Surgical History: CABG, Coronary Stent - Family History Family History: States: Unknown Family Hx - Home Medications Home Medications: Ambulatory Orders Medication Instructions Recorded Allopurinol [Zyloprim] 100 mg PO HS 12/26/15 Gabapentin [Neurontin] 300 mg PO Q12 12/26/15 Omeprazole [Prilosec] 20 mg PO BID 12/26/15 Terazosin [Hytrin] 10 mg PO HS 12/26/15 Isosorbide Mononitrate ER [Imdur 120 mg PO HS 03/23/17 ER] Lisinopril [Zestril] 20 mg PO Q12 03/23/17 Simvastatin 40 mg PO HS 03/23/17 Finasteride [Proscar] 5 mg PO HS 10/25/17 amLODIPine [Norvasc] 5 mg PO HS 10/25/17 Cholecalciferol [Vitamin D 1000 IU] 1,000 unit PO DAILY 11/05/17 Levothyroxine [Synthroid] 88 mcg PO DAILY 11/05/17 Nitroglycerin [Nitrostat] 0.4 mg SL Q5MIN PRN 11/05/17 Zolpidem [Ambien] 5 mg PO HS 11/05/17 hydroCHLOROthiazide [Microzide] 12.5 mg PO DAILY 11/05/17 Metoprolol Succinate XL [Toprol XL] 25 mg PO DAILY #30 tab 11/10/17 - Allergies Allergies/Adverse Reactions: Allergies Allergy/AdvReac Type Severity Reaction Status Date / Time No Known Allergies Allergy Verified 03/18/18 18:25 Review of Systems ROS Statement: Except As Marked, All Systems Reviewed And Found Negative Cardiovascular: Positive for: Chest Pain Musculoskeletal: Positive for: Arm Pain (left) Physical Exam - Reviewed Nursing Documentation Reviewed: Yes Vital Signs Reviewed: Yes - Physical Exam Appears: Positive for: Non-toxic, No Acute Distress Head Exam: Positive for: ATRAUMATIC, NORMOCEPHALIC Skin: Positive for: Normal Color, Warm, Dry Eye Exam: Positive for: EOMI, Normal appearance, PERRL Neck: Positive for: Normal, Painless ROM Cardiovascular/Chest: Positive for: Regular Rate, Rhythm. Negative for: Murmur Respiratory: Positive for: Normal Breath Sounds. Negative for: Respiratory Distress Gastrointestinal/Abdominal: Positive for: Normal Exam, Soft. Negative for: Tenderness Extremity: Positive for: Normal ROM (upper and lower) Neurologic/Psych: Positive for: Alert, Oriented (x3). Negative for: Motor/ Sensory Deficits - Laboratory Results Result Diagrams: 03/18/18 18:55 03/18/18 18:55 - ECG O2 Sat by Pulse Oximetry: 96 (RA) Pulse Ox Interpretation: Normal Medical Decision Making Medical Decision Making: Time: 18:53 Initial Plan: --EKG --CMP --Troponin --CBC with differentials --CXR Scribe Attestation: Documented by Allison Silva, acting as a scribe for Rosendo Ramirez MD Provider Scribe Attestation: All medical record entries made by the Scribe were at my direction and personally dictated by me. I have reviewed the chart and agree that the record accurately reflects my personal performance of the history, physical exam, medical decision making, and the department course for this patient. I have also personally directed, reviewed, and agree with the discharge instructions and disposition. Disposition - Clinical Impression Clinical Impression: Chest pain - Patient ED Disposition Is Patient to be Admitted: Yes - Disposition Disposition Time: 19:42 Condition: FAIR Forms: [employer] (Yoruba) - Pt Status Changed To: Hospital Disposition Of: Observation - POA Present On Arrival: None
[2018-03-18 19:09] LABS: BASO % 1.1 % (0.0-2.0); EOS % 1.4 % (0.0-4.0); LYMPH # 0.6 K/uL (1.0-4.3); LYMPH % 40.7 % (20.0-40.0); MEAN CELL VOLUME 87.2 fl (80.0-94.0); MEAN CORPUSCULAR HEMOGLOBIN 29.9 pg (27.0-31.0); MEAN CORPUSCULAR HGB CONC 34.2 g/dL (33.0-37.0); MEAN PLATELET VOLUME 10.2 fl (7.2-11.7); MONO # 0.3 K/uL (0.0-0.8); NEUT # 0.5 K/uL (1.8-7.0); NEUT % 33.8 % (50.0-75.0); NRBC % 0.4 % (0.0-0.0); PLATELET COUNT 48 K/uL (130-400); RBC 3.02 Mil/uL (4.40-5.90); RED CELL DISTRIBUTION WIDTH 14.6 % (11.5-14.5)
[2018-03-18 19:15] LABS: WHITE BLOOD COUNT 1.5 K/uL (4.8-10.8)
[2018-03-18 19:28] LABS: TROPONIN I 0.019 ng/mL (0.00-0.120)
[2018-03-18 19:29] LABS: ALB/GLOB RATIO 0.8 (1.0-2.1); ALBUMIN 3.5 g/dL (3.5-5.0); CALCIUM 8.5 mg/dL (8.4-10.2)
[2018-03-18] MEDS ORDERED: Nitroglycerin 2% Ointment Foilpak UD TOP STA (20:46)
[2018-03-18] MEDS ORDERED: Nitroglycerin 2% Ointment Foilpak UD TOP ONE (20:50)
[2018-03-18 21:25] LABS: ANISOCYTOSIS SLIGHT; BASOPHIL 1 % (0-2); LYMPHOCYTE 43 % (20-50); MONOCYTE 13 % (0-10); MYELOCYTE 1 % (0-0); NEUTROPHIL 42 % (42-75); PLATELET ESTIMATE MARKEDLY DECREASED (NORMAL); TOTAL CELLS COUNTED 100
[2018-03-18 21:26] LABS: LARGE PLATELETS PRESENT; OVALOCYTES SLIGHT
[2018-03-19] MEDS ORDERED: Levothyroxine 88 MCG TAB PO SCH (06:30)
[2018-03-19] MEDS: Pantoprazole 20 mg EC Tab PO SCH ×2 (08:32→16:45)
[2018-03-19] MEDS ORDERED: Cholecalciferol 1,000 INTLU TAB PO SCH (09:00)
[2018-03-19] MEDS ORDERED: Metoprolol Succinate 25 mg XL Tab PO SCH (09:00)
[2018-03-19] MEDS ORDERED: Nitroglycerin 2% Ointment Foilpak UD TOP ONE (10:00)
--- NOTE | 2018-03-19 10:31 | RAD ---
Date of service: 03/18/2018 HISTORY: cough COMPARISON: Chest radiograph dated 11/24/2017. FINDINGS: LUNGS: No active pulmonary disease. PLEURA: No significant pleural effusion identified, no pneumothorax apparent. CARDIOVASCULAR: Prior sternotomy with sternal wires and surgical clips redemonstrated. Atherosclerotic aortic calcifications. Cardiomediastinal silhouette stably prominent. OSSEOUS STRUCTURES: Unchanged. VISUALIZED UPPER ABDOMEN: Normal. OTHER FINDINGS: None. IMPRESSION: No active disease.
[2018-03-19 12:35] VITALS: PULSE 81; O2SAT 98
--- NOTE | 2018-03-19 14:50 | CP.PCM.HP ---
History of Present Illness - History of Present Illness History of Present Illness: 77 yo M with PMH HTN, CAD, ME, s/p CABG, s/p stent placement admitted due to chest pain, r/o ACS. He presented yesterday to the ED with complaint of intermittent episodes of left sided chest pain radiating left arm. Pain started morning of day of presentation. In ED: denies shortness of breath, nausea, vomiting, or any other medical complaints. EKG showed no acute changes. CXR unremarkable Initial troponin in ED neg. Neutropenic. Seen this morning on rounds with Dr. Kern. Pt states he feels better, still has some discomfort but improved. PMD: Dr. Kern Present on Admission - Present on Admission Any Indicators Present on Admission: No Review of Systems - Review of Systems All systems: reviewed and no additional remarkable complaints except (as per HPI ) Past Patient History - Past Medical History & Family History Past Medical History?: Yes - Past Social History Smoking Status: Former Smoker - CARDIAC Hx Cardiac Disorders: Yes Hx Hypercholesterolemia: Yes Hx Hypertension: Yes - PULMONARY Hx Respiratory Disorders: Yes Hx Asthma: Yes Hx Chronic Obstructive Pulmonary Disease (COPD): Yes - NEUROLOGICAL Hx Neurological Disorder: No - HEENT Hx HEENT Problems: No - RENAL Hx Chronic Kidney Disease: Yes - ENDOCRINE/METABOLIC Hx Endocrine Disorders: Yes Hx Hypothyroidism: Yes - HEMATOLOGICAL/ONCOLOGICAL Hx Blood Disorders: Yes Hx AIDS: No Hx Anemia: Yes Hx Blood Transfusions: Yes Hx Blood Transfusion Reaction: No Hx Chemotherapy: Yes Hx Human Immunodeficiency Virus (HIV): No Hx Leukemia: Yes - INTEGUMENTARY Hx Dermatological Problems: No - MUSCULOSKELETAL/RHEUMATOLOGICAL Hx Musculoskeletal Disorders: Yes Hx Arthritis: Yes Hx Falls: No Hx Gout: Yes - GASTROINTESTINAL Hx Gastrointestinal Disorders: No - GENITOURINARY/GYNECOLOGICAL Hx Genitourinary Disorders: Yes Hx Prostate Problems: Yes - PSYCHIATRIC Hx Psychophysiologic Disorder: No Hx Substance Use: No - SURGICAL HISTORY Hx Coronary Artery Bypass Graft: Yes Hx Coronary Stent: Yes - ANESTHESIA Hx Anesthesia: Yes Hx Anesthesia Reactions: No Hx Malignant Hyperthermia: No Meds Allergies/Adverse Reactions: Allergies Allergy/AdvReac Type Severity Reaction Status Date / Time No Known Allergies Allergy Verified 03/18/18 18:25 Physical Exam - Constitutional Appears: No Acute Distress - Eye Exam Additional comments: wearing glasses - Respiratory Exam Respiratory Exam: Clear to Auscultation Bilateral, NORMAL BREATHING PATTERN. absent: Respiratory Distress - Cardiovascular Exam Cardiovascular Exam: REGULAR RHYTHM - Extremities Exam Extremities exam: Negative for: calf tenderness - Neurological Exam Neurological exam: Alert, Oriented x3 - Psychiatric Exam Psychiatric exam: Normal Mood - Skin Skin Exam: Normal Color, Warm Results - Vital Signs Recent Vital Signs: Last Vital Signs Temp 98.5 F 03/19/18 12:35 Pulse 81 03/19/18 12:35 Resp 18 03/19/18 12:35 BP 141/68 03/19/18 12:35 Pulse Ox 98 03/19/18 12:35 - Labs Result Diagrams: 03/18/18 18:55 03/18/18 18:55 Labs: Laboratory Results - last 24 hr 03/18/18 03/18/18 03/19/18 18:55 18:55 03:27 WBC 1.5 L* RBC 3.02 L Hgb 9.0 L Hct 26.3 L MCV 87.2 MCH 29.9 MCHC 34.2 RDW 14.6 H Plt Count 48 L MPV 10.2 Neut % (Auto) 33.8 L Lymph % (Auto) 40.7 H [place] % (Auto) 23.0 H Eos % (Auto) 1.4 Baso % (Auto) 1.1 Neut # (Auto) 0.5 L Lymph # (Auto) 0.6 L [place] # (Auto) 0.3 Eos # (Auto) 0.0 Baso # (Auto) 0.0 Neutrophils % (Manual) 42 Lymphocytes % (Manual) 43 Monocytes % (Manual) 13 H Basophils % (Manual) 1 Myelocytes % 1 H Platelet Estimate Markedly decreased L Large Platelets Present Anisocytosis (manual) Slight Ovalocytes Slight Sodium 140 Potassium 4.9 Chloride 113 H Carbon Dioxide 14 L Anion Gap 18 BUN 63 H Creatinine 3.7 H Est GFR ( Amer) 19 Est GFR (Non-Af Amer) 16 Random Glucose 116 H Calcium 8.5 Total Bilirubin 0.6 AST 23 ALT 6 L D Alkaline Phosphatase 56 Troponin I 0.0190 0.0250 Total Protein 7.6 Albumin 3.5 D Globulin 4.1 H Albumin/Globulin Ratio 0.8 L 03/19/18 11:13 WBC RBC Hgb Hct MCV MCH MCHC RDW Plt Count MPV Neut % (Auto) Lymph % (Auto) [place] % (Auto) Eos % (Auto) Baso % (Auto) Neut # (Auto) Lymph # (Auto) [place] # (Auto) Eos # (Auto) Baso # (Auto) Neutrophils % (Manual) Lymphocytes % (Manual) Monocytes % (Manual) Basophils % (Manual) Myelocytes % Platelet Estimate Large Platelets Anisocytosis (manual) Ovalocytes Sodium Potassium Chloride Carbon Dioxide Anion Gap BUN Creatinine Est GFR ( Amer) Est GFR (Non-Af Amer) Random Glucose Calcium Total Bilirubin AST ALT Alkaline Phosphatase Troponin I 0.0240 Total Protein Albumin Globulin Albumin/Globulin Ratio Assessment & Plan (1) Chest pain Status: Acute (2) Neutropenia Status: Chronic - Assessment and Plan (Free Text) Plan: - Admitted to tele; monitoring - Trend troponins - Cardio consult - Dr. Perkins - Heme/onc - Dr. Yemi Donaldson - Resume home meds; heart healthy diet - f/u CBC , CMP in am - Rest of plan as ordered, continue current management
[2018-03-19 16:01] VITALS: BP 148/69; RESP 20; TEMP 98.1
--- NOTE | 2018-03-19 18:03 | CP.PCM.CON ---
Past Patient History - Past Medical History & Family History Past Medical History?: Yes - Past Social History Smoking Status: Former Smoker - CARDIAC Hx Cardiac Disorders: Yes Hx Hypercholesterolemia: Yes Hx Hypertension: Yes - PULMONARY Hx Respiratory Disorders: Yes Hx Asthma: Yes Hx Chronic Obstructive Pulmonary Disease (COPD): Yes - NEUROLOGICAL Hx Neurological Disorder: No - HEENT Hx HEENT Problems: No - RENAL Hx Chronic Kidney Disease: Yes - ENDOCRINE/METABOLIC Hx Endocrine Disorders: Yes Hx Hypothyroidism: Yes - HEMATOLOGICAL/ONCOLOGICAL Hx Blood Disorders: Yes Hx AIDS: No Hx Anemia: Yes Hx Blood Transfusions: Yes Hx Blood Transfusion Reaction: No Hx Chemotherapy: Yes Hx Human Immunodeficiency Virus (HIV): No Hx Leukemia: Yes - INTEGUMENTARY Hx Dermatological Problems: No - MUSCULOSKELETAL/RHEUMATOLOGICAL Hx Musculoskeletal Disorders: Yes Hx Arthritis: Yes Hx Falls: No Hx Gout: Yes - GASTROINTESTINAL Hx Gastrointestinal Disorders: No - GENITOURINARY/GYNECOLOGICAL Hx Genitourinary Disorders: Yes Hx Prostate Problems: Yes - PSYCHIATRIC Hx Psychophysiologic Disorder: No Hx Substance Use: No - SURGICAL HISTORY Hx Coronary Artery Bypass Graft: Yes Hx Coronary Stent: Yes - ANESTHESIA Hx Anesthesia: Yes Hx Anesthesia Reactions: No Hx Malignant Hyperthermia: No Meds Allergies/Adverse Reactions: Allergies Allergy/AdvReac Type Severity Reaction Status Date / Time No Known Allergies Allergy Verified 03/18/18 18:25 - Medications Medications: Current Medications Allopurinol (Zyloprim) 100 mg PO HS [facility] Last Admin: 03/18/18 22:38 Dose: 100 mg Amlodipine Besylate (Norvasc) 5 mg PO HS [facility] Last Admin: 03/18/18 22:38 Dose: 5 mg Atorvastatin Calcium (Lipitor) 20 mg PO HS [facility] Last Admin: 03/18/18 22:38 Dose: 20 mg Calcitriol (Rocaltrol) 0.25 mcg PO DAILY [facility] Last Admin: 03/19/18 08:32 Dose: 0.25 mcg Cholecalciferol (Vitamin D) 1,000 intlu PO DAILY [facility] Last Admin: 03/19/18 08:35 Dose: 1,000 intlu Finasteride (Proscar) 5 mg PO HS [facility] Last Admin: 03/18/18 22:37 Dose: 5 mg Gabapentin (Neurontin) 300 mg PO Q12 [facility] Last Admin: 03/19/18 08:31 Dose: 300 mg Hydrochlorothiazide (Microzide) 12.5 mg PO DAILY [facility] Last Admin: 03/19/18 08:31 Dose: 12.5 mg Isosorbide Mononitrate (Imdur) 120 mg PO HS [facility] Last Admin: 03/18/18 22:39 Dose: 120 mg Levothyroxine Sodium (Synthroid) 88 mcg PO DAILY@0630 [facility] Last Admin: 03/19/18 06:23 Dose: 88 mcg Metoprolol Succinate (Toprol Xl) 25 mg PO DAILY [facility] Last Admin: 03/19/18 08:34 Dose: 25 mg Pantoprazole Sodium (Protonix Ec Tab) 20 mg PO BID [facility] Last Admin: 03/19/18 16:45 Dose: 20 mg Terazosin HCl (Hytrin) 10 mg PO HS [facility] Last Admin: 03/18/18 22:39 Dose: 10 mg Results - Vital Signs Recent Vital Signs: Last Vital Signs Temp 98.1 F 03/19/18 16:00 Pulse 81 03/19/18 16:00 Resp 20 03/19/18 16:00 BP 148/69 03/19/18 16:00 Pulse Ox 98 03/19/18 16:00 - Labs Result Diagrams: 03/18/18 18:55 03/18/18 18:55 Labs: Laboratory Results - last 24 hr 03/18/18 03/18/18 03/19/18 18:55 18:55 03:27 WBC 1.5 L* RBC 3.02 L Hgb 9.0 L Hct 26.3 L MCV 87.2 MCH 29.9 MCHC 34.2 RDW 14.6 H Plt Count 48 L MPV 10.2 Neut % (Auto) 33.8 L Lymph % (Auto) 40.7 H [place] % (Auto) 23.0 H Eos % (Auto) 1.4 Baso % (Auto) 1.1 Neut # (Auto) 0.5 L Lymph # (Auto) 0.6 L [place] # (Auto) 0.3 Eos # (Auto) 0.0 Baso # (Auto) 0.0 Neutrophils % (Manual) 42 Lymphocytes % (Manual) 43 Monocytes % (Manual) 13 H Basophils % (Manual) 1 Myelocytes % 1 H Platelet Estimate Markedly decreased L Large Platelets Present Anisocytosis (manual) Slight Ovalocytes Slight Sodium 140 Potassium 4.9 Chloride 113 H Carbon Dioxide 14 L Anion Gap 18 BUN 63 H Creatinine 3.7 H Est GFR ( Amer) 19 Est GFR (Non-Af Amer) 16 Random Glucose 116 H Calcium 8.5 Total Bilirubin 0.6 AST 23 ALT 6 L D Alkaline Phosphatase 56 Troponin I 0.0190 0.0250 Total Protein 7.6 Albumin 3.5 D Globulin 4.1 H Albumin/Globulin Ratio 0.8 L 03/19/18 11:13 WBC RBC Hgb Hct MCV MCH MCHC RDW Plt Count MPV Neut % (Auto) Lymph % (Auto) [place] % (Auto) Eos % (Auto) Baso % (Auto) Neut # (Auto) Lymph # (Auto) [place] # (Auto) Eos # (Auto) Baso # (Auto) Neutrophils % (Manual) Lymphocytes % (Manual) Monocytes % (Manual) Basophils % (Manual) Myelocytes % Platelet Estimate Large Platelets Anisocytosis (manual) Ovalocytes Sodium Potassium Chloride Carbon Dioxide Anion Gap BUN Creatinine Est GFR ( Amer) Est GFR (Non-Af Amer) Random Glucose Calcium Total Bilirubin AST ALT Alkaline Phosphatase Troponin I 0.0240 Total Protein Albumin Globulin Albumin/Globulin Ratio
--- NOTE | 2018-03-22 11:52 | CARD ---
APPROVED REPORT Date of service: 03/18/2018 EKG Measurement Heart [id number] <Conclusion> Normal sinus rhythm Possible Inferior infarct, age undetermined T wave abnormality, consider lateral ischemia Abnormal ECG
== END 2018-03-19 18:45 | disposition home or self-care (01) ==
LOC: H.ER 18:23 → H.ERHOLD 19:41 → H.TEL 21:10
PROVIDERS: ADMIT Family Medicine; ATTEND Family Medicine
DX: R07.9 Chest pain, unspecified (principal); D70.9 Neutropenia, unspecified; I25.10 Atherosclerotic heart disease of native coronary artery without angina pectoris; Z95.1 Presence of aortocoronary bypass graft; Z95.5 Presence of coronary angioplasty implant and graft; J44.9 Chronic obstructive pulmonary disease, unspecified; I13.0 Hypertensive heart and chronic kidney disease with heart failure and stage 1 through stage 4 chronic kidney disease, or unspecified chronic kidney disease; I50.9 Heart failure, unspecified; N18.9 Chronic kidney disease, unspecified; E03.9 Hypothyroidism, unspecified; E78.00 Pure hypercholesterolemia, unspecified; E78.5 Hyperlipidemia, unspecified; Z87.891 Personal history of nicotine dependence
CPT/HCPCS: 36415; 71045; 80053; 84484; 85025; 99285; G0378

== ENCOUNTER 2018-04-22 10:48 | Emergency (ER) | payer MEDICARE ==
[2018-04-22 11:03] VITALS: BMI 25.8
--- NOTE | 2018-04-22 11:16 | ED PDOC ---
HPI: General Adult Time Seen by Provider: 04/22/18 10:58 Chief Complaint (Nursing): Weakness/Neurological Deficit Chief Complaint (Provider): Generalized weakness History Per: Patient, Family History/Exam Limitations: no limitations Additional Complaint(s): Pt presents to ED with c/o generalized weakness, inability to walk secondary to weakness in both legs. Pt discharged from [facility] 3 days ago, being treated for leukemia, admitted for fungal infection in blood for 10 days. Pt was advised to come to ED for transfer to [facility]. Denies fever, CP, SOB, GUIDRY, numbness. Past Medical History Reviewed: Nursing Documentation, Vital Signs Vital Signs: Last Vital Signs Temp 98.6 F 04/22/18 14:29 Pulse 88 04/22/18 14:29 Resp 18 04/22/18 14:29 BP 149/74 04/22/18 14:29 Pulse Ox 98 04/22/18 14:29 - Medical History PMH: Anemia, Arthritis, Asthma, Benign Prostatic Hyperplasia, CAD, CHF, COPD, HTN, Hypercholesterolemia, Hyperlipidemia, Hypothyroidism, Pneumonia, Chronic Kidney Disease Denies: HIV - Surgical History Surgical History: CABG, Coronary Stent - Family History Family History: States: Unknown Family Hx - Home Medications Home Medications: Ambulatory Orders Medication Instructions Recorded Allopurinol [Zyloprim] 100 mg PO HS 12/26/15 Gabapentin [Neurontin] 300 mg PO Q12 12/26/15 Omeprazole [Prilosec] 20 mg PO BID 12/26/15 Terazosin [Hytrin] 10 mg PO HS 12/26/15 Isosorbide Mononitrate ER [Imdur 120 mg PO HS 03/23/17 ER] Simvastatin 40 mg PO HS 03/23/17 Finasteride [Proscar] 5 mg PO HS 10/25/17 amLODIPine [Norvasc] 5 mg PO HS 10/25/17 Cholecalciferol [Vitamin D 1000 IU] 1,000 unit PO DAILY 11/05/17 Levothyroxine [Synthroid] 88 mcg PO DAILY 11/05/17 hydroCHLOROthiazide [Microzide] 12.5 mg PO DAILY 11/05/17 Metoprolol Succinate XL [Toprol XL] 25 mg PO DAILY #30 tab 11/10/17 Calcitriol 0.25 mcg PO DAILY 03/18/18 - Allergies Allergies/Adverse Reactions: Allergies Allergy/AdvReac Type Severity Reaction Status Date / Time No Known Allergies Allergy Verified 03/18/18 18:25 Review of Systems Constitutional: Negative for: Fever, Chills Cardiovascular: Negative for: Chest Pain, Palpitations Respiratory: Negative for: Cough, Shortness of Breath Gastrointestinal: Negative for: Nausea, Vomiting, Abdominal Pain, Diarrhea Neurological: Positive for: Weakness. Negative for: Numbness, Incoordination, Change in Speech, Confusion, Seizures, Altered Mental Status, Headache, Dizziness Physical Exam - Reviewed Nursing Documentation Reviewed: Yes Vital Signs Reviewed: Yes - Physical Exam Appears: Positive for: Well, No Acute Distress Head Exam: Positive for: ATRAUMATIC, NORMAL INSPECTION Skin: Positive for: Normal Color, Warm, Dry Eye Exam: Positive for: Normal appearance, EOMI, PERRL Cardiovascular/Chest: Positive for: Regular Rate, Rhythm Respiratory: Positive for: Normal Breath Sounds Gastrointestinal/Abdominal: Positive for: Normal Exam Extremity: Positive for: Normal ROM. Negative for: Tenderness, Pedal Edema, Swelling Neurologic/Psych: Positive for: Alert, curing finisher II-XII, Oriented. Negative for: Motor/Sensory Deficits, Aphasia, Facial Droop - Laboratory Results Result Diagrams: 04/22/18 12:06 04/22/18 12:06 - ECG Interpretation Of ECG: NSR @ 86, TWI inferiolaterally, anteriorly. O2 Sat by Pulse Oximetry: 99 Pulse Ox Interpretation: Normal Medical Decision Making Medical Decision Makin yo male with generalized weakness. - labs - EKG - CXR - CT head Time: 11:15 Case discussed with SHAHLA Corona ([phone]) for Dr. Maulik Brewster (Heme-Onc) @ [facility]) ([phone]). States pt dx with acute leukemia, no chemo for past 1.5 years, undergoing symptomatic treatment with blood transfusions. Requests workup here prior to transfer. Time: 1134 CXR RESULTS FINDINGS: LUNGS: Interval improved aeration right lung. Progressive consolidative changes affecting perihilar region of left upper and left lower lobe. PLEURA: No significant pleural effusion identified, no pneumothorax apparent. CARDIOVASCULAR: No radiographic findings to suggest acute or significant cardiovascular disease. Incidental Finding(s): Postoperative changes related to sternotomy. OSSEOUS STRUCTURES: No significant abnormalities. VISUALIZED UPPER ABDOMEN: Normal. OTHER FINDINGS: None. IMPRESSION: New infiltrates affecting left upper lobe and to lesser extent left lower lobe. Time: 13:[address] Brewster, states patient has myelodysplastic syndrome, advised placement to NH at time of admission there but family declined. Labs and CXR findings discussed, advises no antibiotic treatment for pneumonia since he was treated while admitted there. Time: [address] RESULTS FINDINGS: HEMORRHAGE: No intracranial hemorrhage. BRAIN: There are mild chronic microangiopathic changes. There is no mass, mass effect or abnormal extra-axial fluid collection. There is no territorial infarction. The midline sagittal structures are normal. VENTRICLES: There is mild age-related global parenchymal volume loss and proportionate enlargement of the ventricles and cortical sulci. CALVARIUM: The skull base and calvarium are normal. PARANASAL SINUSES: Predominantly clear. MASTOID AIR CELLS: Predominantly clear. OTHER FINDINGS: None. IMPRESSION: No acute intracranial abnormality. Mild chronic microangiopathic changes and mild age-related global parenchymal volume loss. Time: 1356 -- At this time, spoke to Penelope POTTS who will be receiving the patient to the floor at [facility]. Scribe Attestation: Documented by Vasu Araujo acting as a scribe for Dr. Irene aCrter MD. Provider Scribe Attestation: All medical record entries made by the Scribe were at my direction and personally dictated by me. I have reviewed the chart and agree that the record accurately reflects my personal performance of the medical decision making for this patient. I have also personally directed, reviewed, and agree with the discharge instructions and disposition. Disposition - Clinical Impression Clinical Impression: Generalized muscle weakness, Myelodysplasia (myelodysplastic syndrome), Pneumobilia - Patient ED Disposition Is Patient to be Admitted: Transfer of Care - Disposition Disposition: Other Institution ([facility]) Disposition Time: 13:35 Condition: GUARDED Instructions: Weakness (ED) Forms: [employer] (Fijian)
--- NOTE | 2018-04-22 11:46 | RAD ---
Date of service: 04/22/2018 HISTORY: Generalized weakness COMPARISON: 03/18/2018 single-view chest. 11/05/2017 CT thorax. FINDINGS: LUNGS: Interval improved aeration right lung. Progressive consolidative changes affecting perihilar region of left upper and left lower lobe. PLEURA: No significant pleural effusion identified, no pneumothorax apparent. CARDIOVASCULAR: No radiographic findings to suggest acute or significant cardiovascular disease. Incidental Finding(s): Postoperative changes related to sternotomy. OSSEOUS STRUCTURES: No significant abnormalities. VISUALIZED UPPER ABDOMEN: Normal. OTHER FINDINGS: None. IMPRESSION: New infiltrates affecting left upper lobe and to lesser extent left lower lobe.
[2018-04-22 12:25] LABS: BASO % 0.8 % (0.0-2.0); EOS # 0.1 K/uL (0.0-0.7); EOS % 1.9 % (0.0-4.0); HEMOGLOBIN 8.1 g/dL (12.0-18.0); LYMPH # 2.1 K/uL (1.0-4.3); LYMPH % 45.4 % (20.0-40.0); MEAN CELL VOLUME 83.8 fl (80.0-94.0); MEAN CORPUSCULAR HEMOGLOBIN 29.1 pg (27.0-31.0); MEAN CORPUSCULAR HGB CONC 34.7 g/dL (33.0-37.0); MEAN PLATELET VOLUME 10.2 fl (7.2-11.7); MONO % 20.6 % (0.0-10.0); NEUT # 1.5 K/uL (1.8-7.0); NEUT % 31.3 % (50.0-75.0); NRBC % 1.3 % (0.0-0.0); RED CELL DISTRIBUTION WIDTH 14.6 % (11.5-14.5); WHITE BLOOD COUNT 4.7 K/uL (4.8-10.8)
[2018-04-22 12:30] LABS: ALB/GLOB RATIO 0.8 (1.0-2.1); ALBUMIN 3.1 g/dL (3.5-5.0); CALCIUM 8.2 mg/dL (8.4-10.2)
[2018-04-22 12:56] LABS: VENOUS BLOOD GAS BASE EXCESS -2.9 mmol/L (0.0-2.0); VENOUS BLOOD GAS PCO2 33 mmHg (40-60); VENOUS BLOOD GAS PO2 40 mm/Hg (30-55); VENOUS BLOOD PH 7.41 (7.32-7.43)
[2018-04-22 13:11] LABS: PLATELET COUNT 65 K/uL (130-400)
[2018-04-22 13:16] LABS: LYMPHOCYTE 50 % (20-50); MONOCYTE 18 % (0-10); NEUTROPHIL 32 % (42-75); TOTAL CELLS COUNTED 100
[2018-04-22 13:17] LABS: ANISOCYTOSIS SLIGHT; LARGE PLATELETS PRESENT; PLATELET ESTIMATE DECREASED (NORMAL)
[2018-04-22 13:18] LABS: GIANT PLATELETS PRESENT; OVALOCYTES SLIGHT; POIKILOCYTOSIS SLIGHT
[2018-04-22 13:22] LABS: URINE AMORPHOUS SEDIMENT RARE /ul (<OCC); URINE BILIRUBIN NEGATIVE (NEGATIVE); URINE BLOOD MODERATE (NEGATIVE); URINE CLARITY SLIGHTY-CLOUDY (Clear); URINE COLOR YELLOW (YELLOW); URINE GLUCOSE (UA) NEG (Normal); URINE LEUKOCYTE ESTERASE NEG Leu/uL (Negative); URINE PROTEIN 100 mg/dL (NEGATIVE); URINE UROBILINOGEN 0.2-1.0 mg/dL (0.2-1.0)
--- NOTE | 2018-04-22 13:42 | CT ---
Date of service: 04/22/2018 PROCEDURE: CT HEAD WITHOUT CONTRAST. HISTORY: Generalized weakness COMPARISON: 11/05/2017. TECHNIQUE: Axial computed tomography images were obtained through the head/brain without intravenous contrast. Radiation dose: Total exam DLP = 913.72 mGy-cm. This CT exam was performed using one or more of the following dose reduction techniques: Automated exposure control, adjustment of the mA and/or kV according to patient size, and/or use of iterative reconstruction technique. FINDINGS: HEMORRHAGE: No intracranial hemorrhage. BRAIN: There are mild chronic microangiopathic changes. There is no mass, mass effect or abnormal extra-axial fluid collection. There is no territorial infarction. The midline sagittal structures are normal. VENTRICLES: There is mild age-related global parenchymal volume loss and proportionate enlargement of the ventricles and cortical sulci. CALVARIUM: The skull base and calvarium are normal. PARANASAL SINUSES: Predominantly clear. MASTOID AIR CELLS: Predominantly clear. OTHER FINDINGS: None. IMPRESSION: No acute intracranial abnormality. Mild chronic microangiopathic changes and mild age-related global parenchymal volume loss.
[2018-04-22 14:30] VITALS: BP 149/74; PULSE 88; RESP 18; TEMP 98.6
[2018-04-22 17:40] VITALS: O2SAT 99
--- NOTE | 2018-04-22 18:53 | CARD ---
APPROVED REPORT Date of service: 04/22/2018 <Conclusion> Normal sinus rhythm Cannot rule out Inferior infarct, age undetermined ST & T wave abnormality, consider anterior ischemia Abnormal ECG
[2018-04-23] MEDS ORDERED: Cefepime 1 GM in Sodium Chloride 0.9% 100 ML IVPB SCH (09:00)
== END 2018-04-22 15:35 | disposition short-term general hospital (02) ==
LOC: H.ER 10:48
DX: M62.81 Muscle weakness (generalized) (principal); D46.9 Myelodysplastic syndrome, unspecified; K83.8 Other specified diseases of biliary tract; E03.9 Hypothyroidism, unspecified; E78.00 Pure hypercholesterolemia, unspecified; I13.0 Hypertensive heart and chronic kidney disease with heart failure and stage 1 through stage 4 chronic kidney disease, or unspecified chronic kidney disease; N40.0 Benign prostatic hyperplasia without lower urinary tract symptoms; Z95.5 Presence of coronary angioplasty implant and graft; Z95.1 Presence of aortocoronary bypass graft

== ENCOUNTER 2018-06-18 11:03 | Inpatient (IN) | payer MEDICARE ==
[2018-06-18 11:11] VITALS: BMI 26.6
[2018-06-18] MEDS ORDERED: Albuterol-Ipratrop 3 mg / 0.5 (3 ml) UD IH STA ×2 (11:30→13:47)
--- NOTE | 2018-06-18 11:55 | ED PDOC ---
HPI: SOB/CHF/COPD Time Seen by Provider: 06/18/18 11:17 Chief Complaint (Nursing): Shortness Of Breath Chief Complaint (Provider): Shortness Of Breath History Per: Patient, Family History/Exam Limitations: no limitations Onset/Duration Of Symptoms: Days (2) Associated Symptoms: denies: Fever Additional Complaint(s): 78 years old male with history of COPD and MDS brought to ER by family due to shortness of breath, cough and productive brown sputum. Patient was admitted 2 weeks ago for pneumonia and discharged with antibiotics. He denies fever and chest pain with cough. PMD: non provided Past Medical History Reviewed: Historical Data, Nursing Documentation, Vital Signs Vital Signs: Last Vital Signs Temp 98.2 F 06/18/18 11:11 Pulse 122 H 06/18/18 11:11 Resp 19 06/18/18 11:11 BP 149/93 H 06/18/18 11:11 Pulse Ox 99 06/18/18 11:11 - Medical History PMH: Anemia, Arthritis, Asthma, Benign Prostatic Hyperplasia, CAD, CHF, COPD, HTN, Hypercholesterolemia, Hyperlipidemia, Hypothyroidism, Pneumonia, Chronic Kidney Disease Denies: HIV - Surgical History Surgical History: CABG, Coronary Stent - Family History Family History: States: Unknown Family Hx - Home Medications Home Medications: Ambulatory Orders Medication Instructions Recorded Allopurinol [Zyloprim] 100 mg PO HS 12/26/15 Gabapentin [Neurontin] 300 mg PO Q12 12/26/15 Omeprazole [Prilosec] 20 mg PO BID 12/26/15 Terazosin [Hytrin] 10 mg PO HS 12/26/15 Isosorbide Mononitrate ER [Imdur 120 mg PO HS 03/23/17 ER] Simvastatin 40 mg PO HS 03/23/17 Finasteride [Proscar] 5 mg PO HS 10/25/17 amLODIPine [Norvasc] 5 mg PO HS 10/25/17 Cholecalciferol [Vitamin D 1000 IU] 1,000 unit PO DAILY 11/05/17 Levothyroxine [Synthroid] 88 mcg PO DAILY 11/05/17 hydroCHLOROthiazide [Microzide] 12.5 mg PO DAILY 11/05/17 Metoprolol Succinate XL [Toprol XL] 25 mg PO DAILY #30 tab 11/10/17 Calcitriol 0.25 mcg PO DAILY 03/18/18 - Allergies Allergies/Adverse Reactions: Allergies Allergy/AdvReac Type Severity Reaction Status Date / Time No Known Allergies Allergy Verified 03/18/18 18:25 Review of Systems ROS Statement: Except As Marked, All Systems Reviewed And Found Negative Constitutional: Negative for: Fever Cardiovascular: Negative for: Chest Pain Respiratory: Positive for: Cough, Shortness of Breath, Sputum (brown) Physical Exam - Reviewed Nursing Documentation Reviewed: Yes Vital Signs Reviewed: Yes - Physical Exam Appears: Positive for: Non-toxic, No Acute Distress Head Exam: Positive for: ATRAUMATIC, NORMOCEPHALIC Skin: Positive for: Normal Color, Warm, Dry Cardiovascular/Chest: Positive for: Regular Rate, Rhythm, Tachycardia Respiratory: Positive for: Normal Breath Sounds, Rhonchi (Scattered), Other (mild dyspnea). Negative for: Wheezing Gastrointestinal/Abdominal: Positive for: Normal Exam, Soft. Negative for: Tenderness Extremity: Positive for: Normal ROM, Tenderness (to right upper extremity bicep with ecchymosis induration) Neurologic/Psych: Positive for: Alert, Oriented (x3). Negative for: Motor/Senso ry Deficits - Laboratory Results Result Diagrams: 06/18/18 11:55 06/18/18 11:55 - ECG O2 Sat by Pulse Oximetry: 99 (RA) Pulse Ox Interpretation: Normal Medical Decision Making Medical Decision Making: Time: 112 Initial Plan: --VBG Shock --EKG --CMP --CBC --D Dimer --PTT --Chest X-Ray --Albuterol 3 ml IH --Blood culture --Peak flow pre/post treatment ----- Scribe Attestation: Documented by Pamela Ballesteros, acting as a scribe for Rosendo Ramirez MD. Provider Scribe Attestation: All medical record entries made by the Scribe were at my direction and personally dictated by me. I have reviewed the chart and agree that the record accurately reflects my personal performance of the history, physical exam, medical decision making, and the department course for this patient. I have also personally directed, reviewed, and agree with the discharge instructions and disposition. Disposition - Clinical Impression Clinical Impression: COPD (chronic obstructive pulmonary disease), Myelodysplasia (myelodysplastic syndrome), Pneumonia - Patient ED Disposition Is Patient to be Admitted: Yes - Disposition Disposition Time: 13:59 Condition: FAIR Forms: [employer] ([place] Islander) - Pt Status Changed To: Hospital Disposition Of: Inpatient - Admit Certification Admit to Inpatient:: After my assessment, the patient will require hospitalization for at least two midnights. This is because of the severity of symptoms shown, intensity of services needed, and/or the medical risk in this patient being treated as an outpatient. - POA Present On Arrival: None
[2018-06-18] MEDS ORDERED: Albuterol-Ipratrop 3 mg / 0.5 (3 ml) UD ONE ×2 (12:03→13:52)
[2018-06-18 12:07] LABS: VENOUS BLOOD GAS BASE EXCESS -3.2 mmol/L (0.0-2.0); VENOUS BLOOD GAS PCO2 29 mmHg (40-60); VENOUS BLOOD GAS PO2 39 mm/Hg (30-55); VENOUS BLOOD PH 7.44 (7.32-7.43)
[2018-06-18 12:13] LABS: BASO % 0.5 % (0.0-2.0); EOS % 0.1 % (0.0-4.0); LYMPH # 0.4 K/uL (1.0-4.3); LYMPH % 34.5 % (20.0-40.0); MEAN CELL VOLUME 84.5 fl (80.0-94.0); MEAN CORPUSCULAR HEMOGLOBIN 29.4 pg (27.0-31.0); MEAN CORPUSCULAR HGB CONC 34.8 g/dL (33.0-37.0); MEAN PLATELET VOLUME 10.5 fl (7.2-11.7); MONO # 0.1 K/uL (0.0-0.8); MONO % 13.1 % (0.0-10.0); NEUT # 0.6 K/uL (1.8-7.0); NEUT % 51.8 % (50.0-75.0); NRBC % 0.1 % (0.0-0.0); RBC 3.06 Mil/uL (4.40-5.90); RED CELL DISTRIBUTION WIDTH 16.2 % (11.5-14.5)
[2018-06-18 12:18] LABS: WHITE BLOOD COUNT 1.1 K/uL (4.8-10.8)
[2018-06-18 12:26] LABS: CALCIUM 8.6 mg/dL (8.4-10.2)
[2018-06-18 12:27] LABS: ALB/GLOB RATIO 0.7 (1.0-2.1); ALBUMIN 3.3 g/dL (3.5-5.0)
[2018-06-18 13:11] LABS: INR 1.3; PROTHROMBIN TIME 14.4 Seconds (9.8-13.1)
--- NOTE | 2018-06-18 13:35 | RAD ---
Date of service: 06/18/2018 HISTORY: cough COMPARISON: 11/09/2017 and 04/22/2018. serial chest radiographs FINDINGS: LUNGS: Persistent infiltrate left lung. PLEURA: No significant pleural effusion identified, no pneumothorax apparent. CARDIOVASCULAR: No radiographic findings to suggest acute or significant cardiovascular disease. Incidental Finding(s): Postoperative changes related to sternotomy. OSSEOUS STRUCTURES: No significant abnormalities. VISUALIZED UPPER ABDOMEN: Normal. OTHER FINDINGS: None. IMPRESSION: Persistent/chronic infiltrate left lung. CT scan recommended for findings that have not resolved compared to 04/22/2018.
--- NOTE | 2018-06-18 13:41 | CARD ---
APPROVED REPORT Date of service: 06/18/2018 EKG Measurement Heart [id number] <Conclusion> Sinus tachycardia ST & T wave abnormality, consider lateral ischemia Abnormal ECG
[2018-06-18] MEDS ORDERED: Albuterol-Ipratrop 3 mg / 0.5 (3 ml) UD INH STA ×2 (16:13→19:46)
--- NOTE | 2018-06-18 16:18 | NM ---
Date of service: 06/18/2018 COMPARISON: Single-view chest June 18, 2018 TECHNIQUE: 45.2 mCi technetium 99-m DTPA aerosol. 5.80 mCI technetium 99-m MAA administered intravenously. FINDINGS: VENTILATION COMPONENT: Heterogeneous ventilation. Retention of radionuclide in the tracheobronchial tree and ingestion of radionuclide in the stomach, incidental findings PERFUSION COMPONENT: Heterogeneous distribution of radionuclide. No geographic, segmental, lobar abnormalities apparent on the present examination. IMPRESSION: Low probability ventilation perfusion scan for pulmonary embolism.
[2018-06-18 16:41] LABS: ALB/GLOB RATIO 0.7 (1.0-2.1); ALBUMIN 3.2 g/dL (3.5-5.0); CALCIUM 8.7 mg/dL (8.4-10.2)
[2018-06-18] MEDS ORDERED: Albuterol-Ipratrop 3 mg / 0.5 (3 ml) UD NEB SCH (17:00)
[2018-06-18] MEDS ORDERED: methylPREDNISolone 40 MG in Sodium Chloride 0.9% 50 ML IVPB SCH (17:00)
[2018-06-18] MEDS: MethylPREDNISolone 40 mg Vial IVP SCH (17:28)
[2018-06-18 18:31] LABS: TROPONIN I 0.043 ng/mL (0.00-0.120)
[2018-06-18 20:02] LABS: ABG ALLEN TEST YES; ARTERIAL BLOOD GAS O2 SAT 99.8 % (95-98); ARTERIAL BLOOD GAS PCO2 26 mm/Hg (35-45); ARTERIAL BLOOD GAS PH 7.25 (7.35-7.45); ARTERIAL BLOOD GAS PO2 139 mm/Hg (80-100); ARTERIAL BLOOD GAS TCO2 12.2 mmol/L (22-28)
--- NOTE | 2018-06-18 20:12 | PCM.RRT ---
<Wes Daniel - Last Filed: 06/18/18 20:09> PLATE [employer]OP HELPER Nurse Assessment - Situation Location: telemetry Room Number: 410-1 [facility]ATE SHOP HEL[employer] Reason for Call: Respiratory Distress PLATE SHOP HELPER Called By: RN - IV IV Inserted during PLATE SHOP HELPER?: No - Respiratory Oxygen Delivery Method: Venturi Mask Received Nebulizer Treatments: Yes (Duo-neb x1) Was the Patient Ventilated with Bag/Mask 100% O2?: No Secretions Suctioned?: No Was the Patient Intubated?: No Was the Patient Placed on a Ventilator?: No - Medication Medications Administered During PLATE SHOP HELPER: duo-neb 3ml INH. xopenex 1.25ml INH - Diagnostic Test Ordered EKG: No Chest X-Ray: No CT Scan: No - Stat Labs Ordered [facility]ATE SHOP HELPER Stat Labs Ordered: ABG CPR started during PLATE SHOP HELPER?: No - Vital Signs Vital Signs: POX: 92% BP: 184/112 HR: 161 RR: 28 agitated - Irena Coma Scale Coma Scale Eye Opening: Spontaneous Coma Scale Motor: Obeys Commands Movement Coma Scale Verbal: Oriented Coma Scale Total: 15 - Vital Signs at end of [employer]ATE SHOP HELPER Vital Signs at end of PLATE SHOP HELPER: POX 100% BP: 176/102 HR: 140 RR: 20 - Recommendations PLATE SHOP HELPER Level of Care Recommendations: Transfer to ICU Notifications: Attending Physician I.Reason for PLATE SHOP HELPER - A) Acute Change in Patient: (Select all that apply): Acute change in SpO2 less Subjective: 78 y/o male with PMHx of COPD, MDS, admitted for acute COPD exacerbation/pneumonia, had [employer]ATE [employer] HELPER called due to acute SOB and agitation. As per nursing, he reported yelling he is having a hard time breathing and became very agitated. He did not want to keep face mask on. He was also diaphoretic. He denied any chest pain, arm/jaw pain. Afebrile. - Neurological Status (Select all that apply): Alert, Responsive, Oriented, Verbal, Follows Commands. absent: Disoriented, Lethargic - Respiratory Oxygen Delivery Method: Venturi Mask @% Oxygen Flow Rate: 5 - Constitutional Appears: Non-toxic, Agitated - Head Head Exam: ATRAUMATIC, NORMOCEPHALIC - Eyes Eye Exam: EOMI, PERRL - Respiratory Exam Respiratory Exam: Accessory Muscle Use, Decreased Breath Sounds, Wheezes, Respiratory Distress. absent: Rales, Rhonchi, NORMAL BREATHING PATTERN - Cardiovascular Exam Cardiovascular Exam: Tachycardia, RRR, +S1, +S2. absent: JVD, Rubs, Murmur - GI/Abdominal Exam GI & Abdominal Exam: Soft, Normal Bowel Sounds. absent: Tenderness - Neurological Exam Neurological Exam: Awake, CN II-XII Intact, Oriented x3 - Extremities Exam Extremities Exam: absent: Pedal Edema Plan - Assessment of Findings&Treatment Plan 78 y/o male with PMHx of COPD and MDS had [employer] called for acute SOB. Plan: -s/p duo-nb x1 -s/p xopenex x1 -abg pending -transfer to ICU -case discussed with nocturinist -admitting physician notified <Shola Parmar - Last Filed: 06/19/18 02:57> [employer] Nurse Assessment - Vital Signs Vital Signs: Rapid Response Vital Sign Blood Pressure 181/100 Pulse Rate 163 Respiratory Rate 44 Oxygen Saturation 98 - Vital Signs at end of [employer]PER Vital Signs at end of PLATE SHOP HELPER: Rapid Response End Vital Sign Blood Pressure 146/108 Pulse Rate 141 Respiratory Rate 24 O2 Sat by Pulse Oximetry 100 Attending/Attestation - Attestation I have personally seen and examined this patient.: Yes I have fully participated in the care of the patient.: Yes I have reviewed all pertinent clinical information, including history, physical exam and plan: Yes Notes (Text): 06/19/18 02:56 I saw and examined this patient with Dr Daniel. i agree with his assessment and plan.
--- NOTE | 2018-06-18 20:26 | CP.PCM.CON ---
History of Present Illness - History of Present Illness History of Present Illness: Attending: Enrrique Howard MD Reason for Consult: Critical care management Chief complaint: SOB The patient was seen and examined on the Telemetry Unit HPI: The hx was obtained after review of the Radiographic, laboratory and medical records as the patient was in severe SOB. He is a 78 years old male with hx of HTN, Myelodysplastic Syndrome, CHF, Asthma and COPD. he came to the ED with Two days of worsening SOB with productive cough. Apparently he was admitted a few weeks ago and dx with pneumonia and discharged on antibiotics. No fever,nausea,nor vomits.On the Telemetry unit he developed severe SOB. This was eventually relieved with Albuterol/ Ipratropium combination although Tachycardia was left post treatment. PMH: Anemia, Arthritis, Asthma, Benign Prostatic Hyperplasia, CAD, CHF, COPD, HTN, HLD, Hypothyroidism, Pneumonia, CKD PSH: CABG; Coronary Stents SH: Former Smoker; live with Family;No Alcohol nor illegal drug use FA: States: Unknown Family Hx Allergies: NKDA Medication: Reviewed Review of Systems - Review of Systems Systems not reviewed;Unavailable: Respiratory Distress Review of Systems: Review of systems limited because of patients Respiratory distress Past Patient History - Past Medical History & Family History Past Medical History?: Yes - Past Social History Smoking Status: Former Smoker Chewing Tobacco Use: No Cigar Use: No Alcohol: None Drugs: Denies Home Situation {Lives}: With Family - CARDIAC Hx Cardiac Disorders: Yes Hx Congestive Heart Failure: Yes Hx Hypercholesterolemia: Yes Hx Hypertension: Yes - PULMONARY Hx Respiratory Disorders: Yes Hx Asthma: Yes Hx Chronic Obstructive Pulmonary Disease (COPD): Yes Hx Pneumonia: Yes - NEUROLOGICAL Hx Neurological Disorder: No - HEENT Hx HEENT Problems: No - RENAL Hx Chronic Kidney Disease: Yes Hx Renal Failure: Yes - ENDOCRINE/METABOLIC Hx Hypothyroidism: Yes - HEMATOLOGICAL/ONCOLOGICAL Hx Blood Disorders: Yes Hx AIDS: No Hx Anemia: Yes Hx Human Immunodeficiency Virus (HIV): No - INTEGUMENTARY Hx Dermatological Problems: No - MUSCULOSKELETAL/RHEUMATOLOGICAL Hx Musculoskeletal Disorders: Yes Hx Arthritis: Yes Hx Falls: No - GASTROINTESTINAL Hx Gastrointestinal Disorders: No - GENITOURINARY/GYNECOLOGICAL Hx Genitourinary Disorders: Yes Hx Prostate Problems: Yes - PSYCHIATRIC Hx Psychophysiologic Disorder: Yes Hx Anxiety: Yes Hx Substance Use: No - SURGICAL HISTORY Hx Surgeries: Yes Hx Coronary Artery Bypass Graft: Yes Hx Coronary Stent: Yes - ANESTHESIA Hx Anesthesia: Yes Hx Anesthesia Reactions: No Hx Malignant Hyperthermia: No Has any member of the family had a problem w/ anesthesia?: No Meds Allergies/Adverse Reactions: Allergies Allergy/AdvReac Type Severity Reaction Status Date / Time No Known Allergies Allergy Verified 03/18/18 18:25 - Medications Medications: Current Medications Albuterol/Ipratropium (Duoneb 3 Mg/0.5 Mg (3 Ml) Ud) 3 ml NEB QID [facility] Last Admin: 06/18/18 19:34 Dose: 3 ml Furosemide (Lasix) 40 mg PO BID [facility] Last Admin: 06/18/18 17:28 Dose: 40 mg Influenza Virus Vaccine (Afluria Quad (Pf) [id number]) 60 mcg IM .ONCE ONE Stop: 06/19/18 09:01 Methylprednisolone (Solu-Medrol) 40 mg IVP Q8 [facility] Last Admin: 06/18/18 17:28 Dose: 40 mg Physical Exam - Constitutional Appears: In Acute Distress - Head Exam Head Exam: ATRAUMATIC, NORMAL INSPECTION, NORMOCEPHALIC - Eye Exam Eye Exam: EOMI, Normal appearance Pupil Exam: NORMAL ACCOMODATION, PERRL - ENT Exam ENT Exam: Mucous Membranes Moist, Normal Exam, Normal External Ear Exam - Neck Exam Neck exam: Positive for: Full Rom, Normal Inspection. Negative for: Lymphadenopathy, Tenderness - Respiratory Exam Additional comments: Decreased Breath sounds with Rales at both lung bases. - Cardiovascular Exam Cardiovascular Exam: REGULAR RHYTHM, RRR, +S1, +S2 - GI/Abdominal Exam GI & Abdominal Exam: Normal Bowel Sounds, Soft. absent: Mass, Organomegaly, Tenderness - Rectal Exam Rectal Exam: Deferred - Extremities Exam Extremities exam: Positive for: normal inspection. Negative for: full ROM, joint swelling, pedal edema - Back Exam Back exam: NORMAL INSPECTION. absent: CVA tenderness (L), CVA tenderness (R) - Neurological Exam Neurological exam: Alert, CN II-XII Intact, Oriented x3, Reflexes Normal - Psychiatric Exam Psychiatric exam: Anxious - Skin Skin Exam: Diaphoretic, Intact, Normal Color, Warm Results - Vital Signs Recent Vital Signs: Last Vital Signs Temp 97.7 F 06/18/18 17:49 Pulse 124 H 06/18/18 18:18 Resp 18 06/18/18 18:18 BP 168/83 H 06/18/18 17:49 Pulse Ox 94 L 06/18/18 17:49 - Labs Result Diagrams: 06/18/18 11:55 06/18/18 15:50 Labs: Laboratory Results - last 24 hr 06/18/18 06/18/18 06/18/18 11:55 11:55 12:00 WBC 1.1 L* D RBC 3.06 L Hgb 9.0 L Hct 25.9 L MCV 84.5 MCH 29.4 MCHC 34.8 RDW 16.2 H Plt Count 39 L D MPV 10.5 Neut % (Auto) 51.8 Lymph % (Auto) 34.5 [place] % (Auto) 13.1 H Eos % (Auto) 0.1 Baso % (Auto) 0.5 Neut # (Auto) 0.6 L Lymph # (Auto) 0.4 L [place] # (Auto) 0.1 Eos # (Auto) 0.0 Baso # (Auto) 0.0 PT INR D-Dimer, Quantitative pCO2 pO2 39 HCO3 ABG pH ABG Total CO2 ABG O2 Saturation ABG Base Excess Abdirizak Test ABG Potassium VBG pH 7.44 H VBG pCO2 29 L VBG HCO3 21.9 VBG Total CO2 20.6 L VBG O2 Sat (Calc) 81.3 H VBG Base Excess -3.2 L VBG Potassium 6.1 H A-a O2 Difference Glucose 146 H Lactate 1.9 Vent Mode FiO2 21.0 Crit Value Called To Crit Value Called By Crit Value Read Back Blood Gas Notified Time Sodium 138 133.0 Potassium 6.0 H Chloride 108 H 104.0 Carbon Dioxide 18 L Anion Gap 18 BUN 62 H Creatinine 3.3 H Est GFR ( Amer) 22 Est GFR (Non-Af Amer) 18 Random Glucose 144 H Calcium 8.6 Total Bilirubin 0.7 AST 41 ALT 22 Alkaline Phosphatase 51 Troponin I Total Protein 8.2 Albumin 3.3 L Globulin 5.0 H Albumin/Globulin Ratio 0.7 L Arterial Blood Potassium Venous Blood Potassium 6.1 H 06/18/18 06/18/18 06/18/18 12:50 15:50 19:52 WBC RBC Hgb Hct MCV MCH MCHC RDW Plt Count MPV Neut % (Auto) Lymph % (Auto) [place] % (Auto) Eos % (Auto) Baso % (Auto) Neut # (Auto) Lymph # (Auto) [place] # (Auto) Eos # (Auto) Baso # (Auto) PT 14.4 H INR 1.3 D-Dimer, Quantitative 708 H pCO2 26 L pO2 139 H HCO3 14.0 L ABG pH 7.25 L ABG Total CO2 12.2 L ABG O2 Saturation 99.8 H ABG Base Excess -14.1 L Abdirizak Test Yes ABG Potassium 5.5 H VBG pH VBG pCO2 VBG HCO3 VBG Total CO2 VBG O2 Sat (Calc) VBG Base Excess VBG Potassium A-a O2 Difference 114.0 Glucose 288 H Lactate 7.3 H* Vent Mode Aerosol mask FiO2 40.0 Crit Value Called To grace Daniel md Crit Value Called By Helena gonsalves Crit Value Read Back Y Blood Gas Notified Time 2001 Sodium 137 132.0 Potassium 5.0 Chloride 106 105.0 Carbon Dioxide 19 L Anion Gap 17 BUN 60 H Creatinine 3.5 H Est GFR ( Amer) 21 Est GFR (Non-Af Amer) 17 Random Glucose 117 H Calcium 8.7 Total Bilirubin 0.3 AST 34 ALT 29 Alkaline Phosphatase 60 Troponin I 0.0430 Total Protein 7.8 Albumin 3.2 L Globulin 4.6 H Albumin/Globulin Ratio 0.7 L Arterial Blood Potassium 5.5 H Venous Blood Potassium - Impressions Impression: Sinus Tachycardia 127/min No sign of ischemia - Imaging and Cardiology Chest x-ray Status: Image reviewed by me, Report reviewed by me Additional comment: Interstitial infiltrate at left lung Wire from sternotomy visable LUNG Scan Additional comment: Low probability Assessment & Plan - Assessment and Plan (Free Text) Assessment: #. COPD Exacerbation #. Myelodysplastic Syndrome with Pancytopenia #. CKD Stage IV #. Hypothyroidism Plan: 78 years old male with hx of HTN, Myelodysplastic Syndrome, CHF, Asthma and COPD. he came to the ED with Two days of worsening SOB with productive cough. Apparently he was admitted a few weeks ago and dx with pneumonia and discharged on antibiotics. No fever,nausea,nor vomits.On the Telemetry unit he developed severe SOB. This was eventually relieved with Albuterol/ Ipratropium combination although Tachycardia was left post treatment. #. COPD Exacerbation - Xopenex/ Ipratropium Q4H and Q2H PRN - Methylprednisolone Q8H IV - O2 via NC 2L/min - Patient was recently treated for Pneumonia - Procalcitonin #. Myelodysplastic Syndrome with Pancytopenia - patient's Oncologist Is in [place] - Consult Dr Yemi Donaldson hem/Onc #. CKD Stage IV - follow Renal labs #. Rales at the bases probably atelectasis r/o CHF with ECHO #. Hypothyroidism - follow TSH Shola Parmar MD - Date & Time Date: 06/18/18 Time: 20:26
[2018-06-18] MEDS ORDERED: guaiFENesin-Codeine 100-10mg/5ml Syrup (5 ml) UD PO PRN (21:56)
[2018-06-18] MEDS: guaiFENesin 100 mg/5 ml Syrup UD PO PRN (22:08)
[2018-06-18] MEDS: Ipratropium 0.02% Inhal Soln (0.5 mg/2.5 ml) UD IH SCH (22:59)
[2018-06-18] MEDS: Levalbuterol 1.25 MG/3 ML Inhal Soln UD INH SCH (22:59)
[2018-06-19] MEDS: MethylPREDNISolone 40 mg Vial IVP SCH ×3 (01:15→16:52)
[2018-06-19] MEDS ORDERED: Levalbuterol 1.25 MG/3 ML Inhal Soln UD INH PRN (02:00)
[2018-06-19] MEDS: guaiFENesin 100 mg/5 ml Syrup UD PO PRN ×4 (03:20→22:54)
[2018-06-19] MEDS: Ipratropium 0.02% Inhal Soln (0.5 mg/2.5 ml) UD IH SCH ×6 (04:53→23:46)
[2018-06-19] MEDS: Levalbuterol 1.25 MG/3 ML Inhal Soln UD INH SCH ×6 (04:53→23:46)
[2018-06-19 06:16] LABS: MEAN CELL VOLUME 84.9 fl (80.0-94.0); MEAN CORPUSCULAR HEMOGLOBIN 28.5 pg (27.0-31.0); MEAN CORPUSCULAR HGB CONC 33.6 g/dL (33.0-37.0); RBC 3.14 Mil/uL (4.40-5.90); RED CELL DISTRIBUTION WIDTH 16.3 % (11.5-14.5); WHITE BLOOD COUNT 5.2 K/uL (4.8-10.8)
[2018-06-19 06:41] LABS: ALB/GLOB RATIO 0.7 (1.0-2.1); ALBUMIN 3.5 g/dL (3.5-5.0)
[2018-06-19] MEDS ORDERED: Influenza Vaccine (5 YR UP)/PF 60 MCG/0.5 ML SYR IM ONE (09:00)
--- NOTE | 2018-06-19 09:54 | CP.PCM.CON ---
History of Present Illness - History of Present Illness History of Present Illness: He is a 78 years old male who was transferred to ICU last night due to sever SOB, which was acute, , had no CP, . He has hx of HTN, Myelodysplastic Syndrome, CHF, Asthma and COPD. he came to the ED with Two days of worsening SOB with productive cough. Apparently he was admitted a few weeks ago and dx with pneumonia and discharged on antibiotics. No fever,nausea,nor vomits. This was eventually relieved with Albuterol/ Ipratropium combination although Tachycardia was left post treatment. He has h/o CKD-4. Review of Systems - Review of Systems Systems not reviewed;Unavailable: Other - Constitutional Constitutional: Fatigue - EENT Eyes: As Per HPI Ears: As Per HPI Nose/Mouth/Throat: As Per HPI - Cardiovascular Cardiovascular: As Per HPI - Respiratory Respiratory: Dyspnea - Gastrointestinal Gastrointestinal: As Per HPI - Genitourinary Genitourinary: As Per HPI Past Patient History - Past Medical History & Family History Past Medical History?: Yes - Past Social History Smoking Status: Former Smoker Chewing Tobacco Use: No Cigar Use: No Alcohol: None Drugs: Denies Home Situation {Lives}: With Family - CARDIAC Hx Cardiac Disorders: Yes Hx Congestive Heart Failure: Yes Hx Hypercholesterolemia: Yes Hx Hypertension: Yes - PULMONARY Hx Respiratory Disorders: Yes Hx Asthma: Yes Hx Chronic Obstructive Pulmonary Disease (COPD): Yes Hx Pneumonia: Yes - NEUROLOGICAL Hx Neurological Disorder: No - HEENT Hx HEENT Problems: No - RENAL Hx Chronic Kidney Disease: Yes Hx Renal Failure: Yes - ENDOCRINE/METABOLIC Hx Hypothyroidism: Yes - HEMATOLOGICAL/ONCOLOGICAL Hx Blood Disorders: Yes Hx AIDS: No Hx Anemia: Yes Hx Human Immunodeficiency Virus (HIV): No - INTEGUMENTARY Hx Dermatological Problems: No - MUSCULOSKELETAL/RHEUMATOLOGICAL Hx Musculoskeletal Disorders: Yes Hx Arthritis: Yes Hx Falls: No - GASTROINTESTINAL Hx Gastrointestinal Disorders: No - GENITOURINARY/GYNECOLOGICAL Hx Genitourinary Disorders: Yes Hx Prostate Problems: Yes - PSYCHIATRIC Hx Psychophysiologic Disorder: Yes Hx Anxiety: Yes Hx Substance Use: No - SURGICAL HISTORY Hx Surgeries: Yes Hx Coronary Artery Bypass Graft: Yes Hx Coronary Stent: Yes - ANESTHESIA Hx Anesthesia: Yes Hx Anesthesia Reactions: No Hx Malignant Hyperthermia: No Has any member of the family had a problem w/ anesthesia?: No Meds Allergies/Adverse Reactions: Allergies Allergy/AdvReac Type Severity Reaction Status Date / Time No Known Allergies Allergy Verified 03/18/18 18:25 - Medications Medications: Current Medications Acetaminophen (Tylenol 325mg Tab) 650 mg PO Q6 PRN PRN Reason: Headache Last Admin: 06/19/18 07:36 Dose: 650 mg Furosemide (Lasix) 40 mg PO BID [facility] Last Admin: 06/19/18 09:02 Dose: 40 mg Guaifenesin (Robitussin) 100 mg PO Q4 PRN PRN Reason: Cough Last Admin: 06/19/18 03:20 Dose: 100 mg Ipratropium [place] (Atrovent) 0.5 mg IH RQ4 [facility] Last Admin: 06/19/18 07:48 Dose: 0.5 mg Levalbuterol HCl (Xopenex) 1.25 mg INH RQ4 [facility] Last Admin: 06/19/18 07:48 Dose: 1.25 mg Levalbuterol HCl (Xopenex) 1.25 mg INH RQ2 PRN PRN Reason: Shortness of Breath Last Admin: 06/19/18 01:35 Dose: 1.25 mg Methylprednisolone (Solu-Medrol) 40 mg IVP Q8 [facility] Last Admin: 06/19/18 09:10 Dose: 40 mg Zolpidem Tartrate (Ambien) 5 mg PO HS PRN PRN Reason: Sleep Last Admin: 06/18/18 22:40 Dose: 5 mg Physical Exam - Head Exam Head Exam: ATRAUMATIC - Eye Exam Eye Exam: Normal appearance - ENT Exam ENT Exam: Mucous Membranes Moist - Neck Exam Neck exam: Positive for: Full Rom - Respiratory Exam Respiratory Exam: Rales - Cardiovascular Exam Cardiovascular Exam: REGULAR RHYTHM - GI/Abdominal Exam GI & Abdominal Exam: Soft Results - Vital Signs Recent Vital Signs: Last Vital Signs Temp 98.3 F 06/19/18 07:48 Pulse 120 H 06/19/18 07:48 Resp 20 06/19/18 07:48 BP 135/79 06/19/18 09:02 Pulse Ox 100 06/19/18 07:48 - Labs Result Diagrams: 06/19/18 05:30 06/19/18 05:30 Labs: Laboratory Results - last 24 hr 06/18/18 06/18/18 06/18/18 11:55 11:55 12:00 WBC 1.1 L* D RBC 3.06 L Hgb 9.0 L Hct 25.9 L MCV 84.5 MCH 29.4 MCHC 34.8 RDW 16.2 H Plt Count 39 L D MPV 10.5 Neut % (Auto) 51.8 Lymph % (Auto) 34.5 [place] % (Auto) 13.1 H Eos % (Auto) 0.1 Baso % (Auto) 0.5 Neut # (Auto) 0.6 L Lymph # (Auto) 0.4 L [place] # (Auto) 0.1 Eos # (Auto) 0.0 Baso # (Auto) 0.0 PT INR D-Dimer, Quantitative pCO2 pO2 39 HCO3 ABG pH ABG Total CO2 ABG O2 Saturation ABG Base Excess Abdirizak Test ABG Potassium VBG pH 7.44 H VBG pCO2 29 L VBG HCO3 21.9 VBG Total CO2 20.6 L VBG O2 Sat (Calc) 81.3 H VBG Base Excess -3.2 L VBG Potassium 6.1 H A-a O2 Difference Glucose 146 H Lactate 1.9 Vent Mode FiO2 21.0 Crit Value Called To Crit Value Called By Crit Value Read Back Blood Gas Notified Time Sodium 138 133.0 Potassium 6.0 H Chloride 108 H 104.0 Carbon Dioxide 18 L Anion Gap 18 BUN 62 H Creatinine 3.3 H Est GFR ( Amer) 22 Est GFR (Non-Af Amer) 18 Random Glucose 144 H Calcium 8.6 Total Bilirubin 0.7 AST 41 ALT 22 Alkaline Phosphatase 51 Troponin I NT-Pro-B Natriuret Pep Total Protein 8.2 Albumin 3.3 L Globulin 5.0 H Albumin/Globulin Ratio 0.7 L TSH 3rd Generation Arterial Blood Potassium Venous Blood Potassium 6.1 H 06/18/18 06/18/18 06/18/18 12:50 15:50 19:52 WBC RBC Hgb Hct MCV MCH MCHC RDW Plt Count MPV Neut % (Auto) Lymph % (Auto) [place] % (Auto) Eos % (Auto) Baso % (Auto) Neut # (Auto) Lymph # (Auto) [place] # (Auto) Eos # (Auto) Baso # (Auto) PT 14.4 H INR 1.3 D-Dimer, Quantitative 708 H pCO2 26 L pO2 139 H HCO3 14.0 L ABG pH 7.25 L ABG Total CO2 12.2 L ABG O2 Saturation 99.8 H ABG Base Excess -14.1 L Abdirizak Test Yes ABG Potassium 5.5 H VBG pH VBG pCO2 VBG HCO3 VBG Total CO2 VBG O2 Sat (Calc) VBG Base Excess VBG Potassium A-a O2 Difference 114.0 Glucose 288 H Lactate 7.3 H* Vent Mode Aerosol mask FiO2 40.0 Crit Value Called To grace Daniel md Crit Value Called By major Crit Value Read Back Y Blood Gas Notified Time 2001 Sodium 137 132.0 Potassium 5.0 Chloride 106 105.0 Carbon Dioxide 19 L Anion Gap 17 BUN 60 H Creatinine 3.5 H Est GFR ( Amer) 21 Est GFR (Non-Af Amer) 17 Random Glucose 117 H Calcium 8.7 Total Bilirubin 0.3 AST 34 ALT 29 Alkaline Phosphatase 60 Troponin I 0.0430 NT-Pro-B Natriuret Pep Total Protein 7.8 Albumin 3.2 L Globulin 4.6 H Albumin/Globulin Ratio 0.7 L TSH 3rd Generation Arterial Blood Potassium 5.5 H Venous Blood Potassium 06/19/18 06/19/18 06/19/18 05:30 05:30 05:30 WBC 5.2 D RBC 3.14 L Hgb 9.0 L Hct 26.7 L MCV 84.9 MCH 28.5 MCHC 33.6 RDW 16.3 H Plt Count 35 L MPV Neut % (Auto) Lymph % (Auto) [place] % (Auto) Eos % (Auto) Baso % (Auto) Neut # (Auto) Lymph # (Auto) [place] # (Auto) Eos # (Auto) Baso # (Auto) PT INR D-Dimer, Quantitative pCO2 pO2 HCO3 ABG pH ABG Total CO2 ABG O2 Saturation ABG Base Excess Abdirizak Test ABG Potassium VBG pH VBG pCO2 VBG HCO3 VBG Total CO2 VBG O2 Sat (Calc) VBG Base Excess VBG Potassium A-a O2 Difference Glucose Lactate Vent Mode FiO2 Crit Value Called To Crit Value Called By Crit Value Read Back Blood Gas Notified Time Sodium 138 Potassium 5.1 H Chloride 105 Carbon Dioxide 21 L Anion Gap 17 BUN 67 H Creatinine 4.0 H Est GFR ( Amer) 18 Est GFR (Non-Af Amer) 15 Random Glucose 149 H Calcium 9.0 Total Bilirubin 0.4 AST 45 ALT 28 Alkaline Phosphatase 68 Troponin I 0.2960 H* NT-Pro-B Natriuret Pep 129192 H Total Protein 8.5 H Albumin 3.5 Globulin 5.0 H Albumin/Globulin Ratio 0.7 L TSH 3rd Generation Arterial Blood Potassium Venous Blood Potassium 06/19/18 05:30 WBC RBC Hgb Hct MCV MCH MCHC RDW Plt Count MPV Neut % (Auto) Lymph % (Auto) [place] % (Auto) Eos % (Auto) Baso % (Auto) Neut # (Auto) Lymph # (Auto) [place] # (Auto) Eos # (Auto) Baso # (Auto) PT INR D-Dimer, Quantitative pCO2 pO2 HCO3 ABG pH ABG Total CO2 ABG O2 Saturation ABG Base Excess Abdirizak Test ABG Potassium VBG pH VBG pCO2 VBG HCO3 VBG Total CO2 VBG O2 Sat (Calc) VBG Base Excess VBG Potassium A-a O2 Difference Glucose Lactate Vent Mode FiO2 Crit Value Called To Crit Value Called By Crit Value Read Back Blood Gas Notified Time Sodium Potassium Chloride Carbon Dioxide Anion Gap BUN Creatinine Est GFR ( Amer) Est GFR (Non-Af Amer) Random Glucose Calcium Total Bilirubin AST ALT Alkaline Phosphatase Troponin I NT-Pro-B Natriuret Pep Total Protein Albumin Globulin Albumin/Globulin Ratio TSH 3rd Generation 3.38 Arterial Blood Potassium Venous Blood Potassium Assessment & Plan - Assessment and Plan (Free Text) Assessment: Assessment and Plan: #. COPD Exacerbation - Xopenex/ Ipratropium Q4H and Q2H PRN - Methylprednisolone Q8H IV - O2 via NC 2L/min - Patient was recently treated for Pneumonia - Procalcitonin CHF exacerbation: Lasix 40 mg IV q 12 H #. Myelodysplastic Syndrome with Pancytopenia, low platlets , leukopenia improved - patient's Oncologist Is in [place] - Consult Dr Yemi Donaldson hem/Onc #. CKD Stage IV - follow Renal labs #. Hypothyroidism - follow TSH Repeat Lactate and TNI.
--- NOTE | 2018-06-19 11:33 | CP.PCM.CON ---
History of Present Illness - History of Present Illness History of Present Illness: This is a 78 yrs old male who was admitted because of increasing shortness of breath. Apparently pt had been admitted to [facility] 2 weeks ago with pneumonia and after treatment was asent home with antibiotics. Now he no longer has fever , cough or chills, but had shortness of breath and came back to the hospital.last night a LAPPER was called on him because he was getting more short of breath and hypoxic. He was transferred to the ICU where he was given 100% 02 by nasal cannula. he is doing much better today h/0 MDS for which he is followed up at [facility]. He has not been on any chemotherapy , he has a transfusion every week. On admission, hisWVC was 1.1, Hgb 9.0gms, and platelets were 39K. I gave him 1 dose of granix and his WBC has increased to 5.2. His hgb is still 9,o gms and i will transfuse him is it drops any further. He has a past h/o CAD and had a stent placement and a CABG done, Anemia, arthritis, BPH ,CHF, COPD , HTN, HDL, hypothyroidism and CRD Past Patient History - Past Medical History & Family History Past Medical History?: Yes - Past Social History Smoking Status: Former Smoker Chewing Tobacco Use: No Cigar Use: No Alcohol: None Drugs: Denies Home Situation {Lives}: With Family - CARDIAC Hx Cardiac Disorders: Yes Hx Congestive Heart Failure: Yes Hx Hypercholesterolemia: Yes Hx Hypertension: Yes - PULMONARY Hx Respiratory Disorders: Yes Hx Asthma: Yes Hx Chronic Obstructive Pulmonary Disease (COPD): Yes Hx Pneumonia: Yes - NEUROLOGICAL Hx Neurological Disorder: No - HEENT Hx HEENT Problems: No - RENAL Hx Chronic Kidney Disease: Yes Hx Renal Failure: Yes - ENDOCRINE/METABOLIC Hx Hypothyroidism: Yes - HEMATOLOGICAL/ONCOLOGICAL Hx Blood Disorders: Yes Hx AIDS: No Hx Anemia: Yes Hx Human Immunodeficiency Virus (HIV): No - INTEGUMENTARY Hx Dermatological Problems: No - MUSCULOSKELETAL/RHEUMATOLOGICAL Hx Musculoskeletal Disorders: Yes Hx Arthritis: Yes Hx Falls: No - GASTROINTESTINAL Hx Gastrointestinal Disorders: No - GENITOURINARY/GYNECOLOGICAL Hx Genitourinary Disorders: Yes Hx Prostate Problems: Yes - PSYCHIATRIC Hx Psychophysiologic Disorder: Yes Hx Anxiety: Yes Hx Substance Use: No - SURGICAL HISTORY Hx Surgeries: Yes Hx Coronary Artery Bypass Graft: Yes Hx Coronary Stent: Yes - ANESTHESIA Hx Anesthesia: Yes Hx Anesthesia Reactions: No Hx Malignant Hyperthermia: No Has any member of the family had a problem w/ anesthesia?: No Meds Allergies/Adverse Reactions: Allergies Allergy/AdvReac Type Severity Reaction Status Date / Time No Known Allergies Allergy Verified 03/18/18 18:25 - Medications Medications: Current Medications Acetaminophen (Tylenol 325mg Tab) 650 mg PO Q6 PRN PRN Reason: Headache Last Admin: 06/19/18 07:36 Dose: 650 mg Furosemide (Lasix) 40 mg PO BID TOMÁS Last Admin: 06/19/18 09:02 Dose: 40 mg Guaifenesin (Robitussin) 100 mg PO Q4 PRN PRN Reason: Cough Last Admin: 06/19/18 10:43 Dose: 100 mg Ipratropium [place] (Atrovent) 0.5 mg IH RQ4 TOMÁS Last Admin: 06/19/18 07:48 Dose: 0.5 mg Levalbuterol HCl (Xopenex) 1.25 mg INH RQ4 TOMÁS Last Admin: 06/19/18 07:48 Dose: 1.25 mg Levalbuterol HCl (Xopenex) 1.25 mg INH RQ2 PRN PRN Reason: Shortness of Breath Last Admin: 06/19/18 01:35 Dose: 1.25 mg Methylprednisolone (Solu-Medrol) 40 mg IVP Q8 TOMÁS Last Admin: 06/19/18 09:10 Dose: 40 mg Zolpidem Tartrate (Ambien) 5 mg PO HS PRN PRN Reason: Sleep Last Admin: 06/18/18 22:40 Dose: 5 mg Physical Exam - Additional Findings Additional findings: Physical exam; Alert, well oriented.in no acute distress now neck; Supple, no adenopathy Chest; Scattered rhonchi and basal rales Heart Grade 2/6 systolic murmur Abd; Soft, no mass, no h/s megaly Results - Vital Signs Recent Vital Signs: Last Vital Signs Temp 98.3 F 06/19/18 07:48 Pulse 119 H 06/19/18 10:00 Resp 15 06/19/18 10:00 BP 140/78 06/19/18 10:00 Pulse Ox 99 06/19/18 10:00 - Labs Result Diagrams: 06/19/18 05:30 06/19/18 05:30 Labs: Laboratory Results - last 24 hr 06/18/18 06/18/18 06/18/18 11:55 11:55 12:00 WBC 1.1 L* D RBC 3.06 L Hgb 9.0 L Hct 25.9 L MCV 84.5 MCH 29.4 MCHC 34.8 RDW 16.2 H Plt Count 39 L D MPV 10.5 Neut % (Auto) 51.8 Lymph % (Auto) 34.5 Glenn % (Auto) 13.1 H Eos % (Auto) 0.1 Baso % (Auto) 0.5 Neut # (Auto) 0.6 L Lymph # (Auto) 0.4 L Glenn # (Auto) 0.1 Eos # (Auto) 0.0 Baso # (Auto) 0.0 PT INR D-Dimer, Quantitative pCO2 pO2 39 HCO3 ABG pH ABG Total CO2 ABG O2 Saturation ABG Base Excess Abdirizak Test ABG Potassium VBG pH 7.44 H VBG pCO2 29 L VBG HCO3 21.9 VBG Total CO2 20.6 L VBG O2 Sat (Calc) 81.3 H VBG Base Excess -3.2 L VBG Potassium 6.1 H A-a O2 Difference Glucose 146 H Lactate 1.9 Vent Mode FiO2 21.0 Crit Value Called To Crit Value Called By Crit Value Read Back Blood Gas Notified Time Sodium 138 133.0 Potassium 6.0 H Chloride 108 H 104.0 Carbon Dioxide 18 L Anion Gap 18 BUN 62 H Creatinine 3.3 H Est GFR ( Amer) 22 Est GFR (Non-Af Amer) 18 Random Glucose 144 H Calcium 8.6 Total Bilirubin 0.7 AST 41 ALT 22 Alkaline Phosphatase 51 Troponin I NT-Pro-B Natriuret Pep Total Protein 8.2 Albumin 3.3 L Globulin 5.0 H Albumin/Globulin Ratio 0.7 L TSH 3rd Generation Arterial Blood Potassium Venous Blood Potassium 6.1 H 06/18/18 06/18/18 06/18/18 12:50 15:50 19:52 WBC RBC Hgb Hct MCV MCH MCHC RDW Plt Count MPV Neut % (Auto) Lymph % (Auto) Glenn % (Auto) Eos % (Auto) Baso % (Auto) Neut # (Auto) Lymph # (Auto) Glenn # (Auto) Eos # (Auto) Baso # (Auto) PT 14.4 H INR 1.3 D-Dimer, Quantitative 708 H pCO2 26 L pO2 139 H HCO3 14.0 L ABG pH 7.25 L ABG Total CO2 12.2 L ABG O2 Saturation 99.8 H ABG Base Excess -14.1 L Abdirizak Test Yes ABG Potassium 5.5 H VBG pH VBG pCO2 VBG HCO3 VBG Total CO2 VBG O2 Sat (Calc) VBG Base Excess VBG Potassium A-a O2 Difference 114.0 Glucose 288 H Lactate 7.3 H* Vent Mode Aerosol mask FiO2 40.0 Crit Value Called To grace Daniel md Crit Value Called By Helena gonsalves Crit Value Read Back Y Blood Gas Notified Time 2001 Sodium 137 132.0 Potassium 5.0 Chloride 106 105.0 Carbon Dioxide 19 L Anion Gap 17 BUN 60 H Creatinine 3.5 H Est GFR ( Amer) 21 Est GFR (Non-Af Amer) 17 Random Glucose 117 H Calcium 8.7 Total Bilirubin 0.3 AST 34 ALT 29 Alkaline Phosphatase 60 Troponin I 0.0430 NT-Pro-B Natriuret Pep Total Protein 7.8 Albumin 3.2 L Globulin 4.6 H Albumin/Globulin Ratio 0.7 L TSH 3rd Generation Arterial Blood Potassium 5.5 H Venous Blood Potassium 06/19/18 06/19/18 06/19/18 05:30 05:30 05:30 WBC 5.2 D RBC 3.14 L Hgb 9.0 L Hct 26.7 L MCV 84.9 MCH 28.5 MCHC 33.6 RDW 16.3 H Plt Count 35 L MPV Neut % (Auto) Lymph % (Auto) Glenn % (Auto) Eos % (Auto) Baso % (Auto) Neut # (Auto) Lymph # (Auto) Glenn # (Auto) Eos # (Auto) Baso # (Auto) PT INR D-Dimer, Quantitative pCO2 pO2 HCO3 ABG pH ABG Total CO2 ABG O2 Saturation ABG Base Excess Abdirizak Test ABG Potassium VBG pH VBG pCO2 VBG HCO3 VBG Total CO2 VBG O2 Sat (Calc) VBG Base Excess VBG Potassium A-a O2 Difference Glucose Lactate Vent Mode FiO2 Crit Value Called To Crit Value Called By Crit Value Read Back Blood Gas Notified Time Sodium 138 Potassium 5.1 H Chloride 105 Carbon Dioxide 21 L Anion Gap 17 BUN 67 H Creatinine 4.0 H Est GFR ( Amer) 18 Est GFR (Non-Af Amer) 15 Random Glucose 149 H Calcium 9.0 Total Bilirubin 0.4 AST 45 ALT 28 Alkaline Phosphatase 68 Troponin I 0.2960 H* NT-Pro-B Natriuret Pep 210514 H Total Protein 8.5 H Albumin 3.5 Globulin 5.0 H Albumin/Globulin Ratio 0.7 L TSH 3rd Generation Arterial Blood Potassium Venous Blood Potassium 06/19/18 05:30 WBC RBC Hgb Hct MCV MCH MCHC RDW Plt Count MPV Neut % (Auto) Lymph % (Auto) Glenn % (Auto) Eos % (Auto) Baso % (Auto) Neut # (Auto) Lymph # (Auto) Glenn # (Auto) Eos # (Auto) Baso # (Auto) PT INR D-Dimer, Quantitative pCO2 pO2 HCO3 ABG pH ABG Total CO2 ABG O2 Saturation ABG Base Excess Abdirizak Test ABG Potassium VBG pH VBG pCO2 VBG HCO3 VBG Total CO2 VBG O2 Sat (Calc) VBG Base Excess VBG Potassium A-a O2 Difference Glucose Lactate Vent Mode FiO2 Crit Value Called To Crit Value Called By Crit Value Read Back Blood Gas Notified Time Sodium Potassium Chloride Carbon Dioxide Anion Gap BUN Creatinine Est GFR ( Amer) Est GFR (Non-Af Amer) Random Glucose Calcium Total Bilirubin AST ALT Alkaline Phosphatase Troponin I NT-Pro-B Natriuret Pep Total Protein Albumin Globulin Albumin/Globulin Ratio TSH 3rd Generation 3.38 Arterial Blood Potassium Venous Blood Potassium Assessment & Plan - Assessment and Plan (Free Text) Assessment: Impression; Acute shortness of breath MDS with pancytopenia Plan: Plan;Ii have given him 1 dose of granix yesterday, and will d/c granix after another dose today.. His hgb is 9.0. if it drops below 8.0 will transfuse PRBC - Date & Time Date: 06/19/18 Time: 11:42
[2018-06-19] MEDS ORDERED: Oxycodone/Acetaminophen 5/325 mg Tab PO ONE (18:14)
[2018-06-19] MEDS ORDERED: Levalbuterol 1.25 MG/3 ML Inhal Soln UD INH ONE (21:47)
[2018-06-19] MEDS ORDERED: Alum-Mag Hydrox-Simethicone Susp (30 mL) PO ONE (23:16)
--- NOTE | 2018-06-19 23:57 | CON ---
DATE: 06/19/2018 REASON FOR CONSULTATION: Chest pain and elevated troponin. HISTORY OF PRESENT ILLNESS: The patient is a 78-year-old male, who has a history of coronary artery disease, underwent a single-vessel coronary artery bypass surgery 15 years ago in a [facility]. Subsequently, the patient required at least one coronary intervention by his catalyst concentration operator, Dr. Silverio, in [facility] as well as at least four peripheral vascular interventions on both lower extremities. The patient was recently diagnosed with myelodysplasia and for the past few months, he was receiving packed RBC transfusion. The patient presented at this time because of shortness of breath, cough, and productive cough and was treated two weeks earlier prior to this admission for pneumonia. Today, the patient reported retrosternal chest pain and troponin was mildly elevated. No reported ventricular arrhythmia or hypotension; however, the patient has been in sinus tachycardia. SOCIAL HISTORY: The patient quit smoking 15 years ago after his open heart surgery. MEDICATIONS: Ambien 5 mg at bedtime, Atrovent inhalation every 4 hours, Lasix 40 mg intravenously twice a day, Robitussin 100 mg p.o. every 4 hours p.r.n., Solu-Medrol 40 mg intravenously every 8 hours, and Xopenex inhaler every 4 hours. REVIEW OF SYSTEMS: No fever. The patient complains of chills which he attributes to low room temperature. No nausea or vomiting; and no dizziness or syncope. PHYSICAL EXAMINATION: GENERAL: The patient is an elderly male, who does not appear to be in acute distress. VITAL SIGNS: Blood pressure 140/78, heart rate 119, temperature 98.3, respirations 20. HEENT: Pale conjunctivae. CHEST: Diffuse bilateral rhonchi. CARDIOPULMONARY: Heart S1 and S2 regular. ABDOMEN: Soft. EXTREMITIES: No edema. LABORATORY DATA: Yesterday's white count on admission was 1.1. Today's white count 5.2, hemoglobin and hematocrit 9 and 26.7, platelet count 35,000. Today's SMA-7, sodium 138, potassium 5.1, chloride 105, CO2 of 21, glucose 149, BUN 67, and creatinine 4. ProBNP is 164,000. Troponin 0.296 and 0.399. D-dimer is 708. INR is 1.3. Ventilation perfusion scan revealed low probability for pulmonary embolus. Echocardiogram in March of last year revealed [id number] LVH with apical hypokinesis, cannot rule out associated thrombi. Ejection at that time was measured at 50%. EKG revealed sinus tachycardia, ST-T wave changes. Consider lateral ischemia. Chest x-ray revealed no cardiomegaly, sternotomy scar, prominent bronchovascular markings. ASSESSMENT: 1. Chest pain, consider non-ST elevation myocardial infarction. 2. Worsening renal insufficiency. 3. History of coronary artery disease, status post single-vessel bypass surgery, according to the patient 15 years ago. 4. Myelodysplasia. 5. Pancytopenia. RECOMMENDATIONS: Continue Lasix 40 mg p.o. twice a day, Solu-Medrol 40 mg intravenously every 8 hours, Atrovent and Xopenex. Start aspirin at 81 mg orally daily once approved by foster winder, Dr. Donaldson. Obtain a bedside echocardiogram. Invasive cardiac workup will not be justified because of the underlying significant renal insufficiency and the conditions of thrombocytopenia. I will also request venous Doppler of the lower extremities. Valdemar Pedraza MD
[2018-06-20] MEDS: Levalbuterol 1.25 MG/3 ML Inhal Soln UD INH PRN ×2 (02:11→10:03)
[2018-06-20] MEDS: Levalbuterol 1.25 MG/3 ML Inhal Soln UD INH SCH ×5 (05:07→19:34)
[2018-06-20] MEDS: Ipratropium 0.02% Inhal Soln (0.5 mg/2.5 ml) UD IH SCH ×5 (05:07→19:34)
--- NOTE | 2018-06-20 09:35 | CP.CCUPN ---
CCU Subjective - Physician Review Events Since Last Encounter (Free Text): 06/20/18 09:31 alert and awake, no sob, still has mild cough, no blood work available this morning, re-ordered, will review. CCU Objective - Vital Signs / Intake & Output Vital Signs (Last 4 hours): Vital Signs Temp Pulse Resp BP Pulse Ox 06/20/18 09:12 122/71 06/20/18 09:11 99 H 122/71 06/20/18 08:00 97.6 F 94 H 12 126/74 100 06/20/18 06:00 94 H 20 134/81 100 Intake and Output (Last 8hrs): Intake & Output 06/19/18 06/20/18 06/20/18 22:59 06:59 14:59 Intake Total 280 10 Output Total 350 Balance -70 10 Intake: IV 10 Oral 280 Output: Urine 350 Condom 350 Other: # Voids Condom 200 # Bowel Movements 1 1 - Physical Exam Narrative Physical Exam (Free Text): 06/20/18 09:32 P./E neck: No JVD Lungs: few scattered ronchi, Rt basal crackles Abdomen: soft, non-tender Ext; no edema heart: No gallop. - Medications Active Medications: Active Medications Generic Name Dose Route Start Last Admin Trade Name Freq PRN Reason Stop Dose Admin Acetaminophen 650 mg 06/19/18 21:47 06/20/18 01:26 Tylenol 325mg Tab PO 650 mg Q6 PRN Administration Headache Aspirin 81 mg 06/20/18 09:00 06/20/18 09:10 Aspirin Chewable PO 81 mg DAILY TOMÁS Administration Furosemide 40 mg 06/19/18 22:00 06/20/18 09:12 Lasix IVP 40 mg BID TOMÁS Administration Guaifenesin 100 mg 06/19/18 21:47 06/19/18 22:54 Robitussin PO 100 mg Q4 PRN Administration Cough Ipratropium [place] 0.5 mg 06/20/18 00:00 06/20/18 08:09 Atrovent IH 0.5 mg RQ4 TOMÁS Administration Levalbuterol HCl 1.25 mg 06/19/18 21:47 06/20/18 02:11 Xopenex INH 1.25 mg RQ2 PRN Administration Shortness of Breath Levalbuterol HCl 1.25 mg 06/20/18 00:00 06/20/18 08:09 Xopenex INH 1.25 mg RQ4 TOMÁS Administration Metoprolol Tartrate 50 mg 06/19/18 22:00 06/20/18 09:11 Lopressor PO 50 mg Q12 TOMÁS Administration Ondansetron HCl 4 mg 06/20/18 01:16 06/20/18 01:57 Zofran Inj IVP 4 mg Q6 PRN Administration Nausea/Vomiting Zolpidem Tartrate 10 mg 06/19/18 22:00 06/19/18 22:53 Ambien PO 10 mg HS TOMÁS Administration - Patient Studies Lab Studies: Microbiology Studies 06/18/18 15:30 Blood Culture - Preliminary Blood-Venous NO GROWTH AFTER 24 HOURS 06/18/18 11:55 Blood Culture - Preliminary Blood-Venous NO GROWTH AFTER 24 HOURS Lab Studies 06/19/18 06/19/18 06/19/18 Range/Units 22:59 10:50 10:50 POC Glucose (mg/dL) 129 H (65-110) mg/dL Lactic Acid 3.1 H (0.7-2.1) MMOL/L Troponin I 0.3990 H* (0.00-0.120) ng/mL Procalcitonin (0.19-0.49) NG/ML 06/19/18 Range/Units 05:30 POC Glucose (mg/dL) (65-110) mg/dL Lactic Acid (0.7-2.1) MMOL/L Troponin I (0.00-0.120) ng/mL Procalcitonin 0.11 L (0.19-0.49) NG/ML Laboratory Results - last 24 hr 06/19/18 06/19/18 06/19/18 05:30 10:50 10:50 POC Glucose (mg/dL) Lactic Acid 3.1 H Troponin I 0.3990 H* Procalcitonin 0.11 L 06/19/18 22:59 POC Glucose (mg/dL) 129 H Lactic Acid Troponin I Procalcitonin Critical Care Progress Note - Nutrition Nutrition: Nutrition Category Date Time Status Heart Healthy Diet [DIET] Diets 06/20/18 Breakfast Active Assessment/Plan - Assessment and Plan (Free Text) Assessment: Assessment and Plan: #. COPD Exacerbation - Xopenex/ Ipratropium Q4H and Q2H PRN - Methylprednisolone Q8H IV - O2 via NC 2L/min - Patient was recently treated for Pneumonia - Procalcitonin CHF exacerbation: Lasix 40 mg IV q 12 H #. Myelodysplastic Syndrome with Pancytopenia, low platlets , leukopenia improved - patient's Oncologist Is in [place] - Consult Dr Yemi Donaldson hem/Onc, platets and WBC improved yesterday, was given granix by Dr Donaldson yesterday, today's labs are pending #. CKD Stage IV - follow Renal labs #. Hypothyroidism - follow TSH Labs ordered, will review, if stable , will transfer to tele Cardiology consult was done yesterday due to rising TNI, Echo was ordered, Dr Perkins to follow.
[2018-06-20] MEDS ORDERED: MethylPREDNISolone 40 mg Vial IVP STA (10:20)
[2018-06-20 11:23] LABS: BASO # 0.2 K/uL (0.0-0.2); BASO % 1.3 % (0.0-2.0); EOS % 0.2 % (0.0-4.0); HEMOGLOBIN 9.1 g/dL (12.0-18.0); LYMPH % 15.1 % (20.0-40.0); MEAN CELL VOLUME 86.3 fl (80.0-94.0); MEAN CORPUSCULAR HEMOGLOBIN 28.3 pg (27.0-31.0); MEAN CORPUSCULAR HGB CONC 32.8 g/dL (33.0-37.0); MEAN PLATELET VOLUME 12.3 fl (7.2-11.7); MONO # 1.1 K/uL (0.0-0.8); MONO % 8.2 % (0.0-10.0); NEUT # 9.8 K/uL (1.8-7.0); NEUT % 75.2 % (50.0-75.0); RBC 3.21 Mil/uL (4.40-5.90); RED CELL DISTRIBUTION WIDTH 16.8 % (11.5-14.5)
--- NOTE | 2018-06-20 11:32 | CP.PCM.CON ---
History of Present Illness - History of Present Illness History of Present Illness: I was asked to evaluate patient by Dr Howard. Patient is a 78 year old male with PMH HTN, hypercholesterolemia CAD s/p CABG, Myelodysplastic syndrome who presents with dyspnea. The patient had a recent hospitalization for pneumonia and was treated with antibiotics. he was cischsrged and presents with dyspnea and productive cough. He was pancytopenic. He was also found to be in renal failure. He was transferred to ICU for acute dyspnea. He has had very poor urine output. He developed change inmental status with emesis this morning. ABG is pending. Review of Systems - Review of Systems Systems not reviewed;Unavailable: Altered Mental Status Past Patient History - Past Medical History & Family History Past Medical History?: Yes - Past Social History Smoking Status: Former Smoker Chewing Tobacco Use: No Cigar Use: No Alcohol: None Drugs: Denies Home Situation {Lives}: With Family - CARDIAC Hx Cardiac Disorders: Yes Hx Congestive Heart Failure: Yes Hx Hypercholesterolemia: Yes Hx Hypertension: Yes - PULMONARY Hx Respiratory Disorders: Yes Hx Asthma: Yes Hx Chronic Obstructive Pulmonary Disease (COPD): Yes Hx Pneumonia: Yes - NEUROLOGICAL Hx Neurological Disorder: No - HEENT Hx HEENT Problems: No - RENAL Hx Chronic Kidney Disease: Yes Hx Renal Failure: Yes - ENDOCRINE/METABOLIC Hx Hypothyroidism: Yes - HEMATOLOGICAL/ONCOLOGICAL Hx Blood Disorders: Yes Hx AIDS: No Hx Anemia: Yes Hx Human Immunodeficiency Virus (HIV): No - INTEGUMENTARY Hx Dermatological Problems: No - MUSCULOSKELETAL/RHEUMATOLOGICAL Hx Musculoskeletal Disorders: Yes Hx Arthritis: Yes Hx Falls: No - GASTROINTESTINAL Hx Gastrointestinal Disorders: No - GENITOURINARY/GYNECOLOGICAL Hx Genitourinary Disorders: Yes Hx Prostate Problems: Yes - PSYCHIATRIC Hx Psychophysiologic Disorder: Yes Hx Anxiety: Yes Hx Substance Use: No - SURGICAL HISTORY Hx Surgeries: Yes Hx Coronary Artery Bypass Graft: Yes Hx Coronary Stent: Yes - ANESTHESIA Hx Anesthesia: Yes Hx Anesthesia Reactions: No Hx Malignant Hyperthermia: No Has any member of the family had a problem w/ anesthesia?: No Meds Allergies/Adverse Reactions: Allergies Allergy/AdvReac Type Severity Reaction Status Date / Time No Known Allergies Allergy Verified 03/18/18 18:25 - Medications Medications: Current Medications Acetaminophen (Tylenol 325mg Tab) 650 mg PO Q6 PRN PRN Reason: Headache Last Admin: 06/20/18 01:26 Dose: 650 mg Aspirin (Aspirin Chewable) 81 mg PO DAILY [facility] Last Admin: 06/20/18 09:10 Dose: 81 mg Furosemide (Lasix) 40 mg IVP BID [facility] Last Admin: 06/20/18 09:12 Dose: 40 mg Guaifenesin (Robitussin) 100 mg PO Q4 PRN PRN Reason: Cough Last Admin: 06/19/18 22:54 Dose: 100 mg Ipratropium [place] (Atrovent) 0.5 mg IH RQ4 [facility] Last Admin: 06/20/18 08:09 Dose: 0.5 mg Levalbuterol HCl (Xopenex) 1.25 mg INH RQ2 PRN PRN Reason: Shortness of Breath Last Admin: 06/20/18 10:03 Dose: 1.25 mg Levalbuterol HCl (Xopenex) 1.25 mg INH RQ4 [facility] Last Admin: 06/20/18 08:09 Dose: 1.25 mg Metoprolol Tartrate (Lopressor) 50 mg PO Q12 [facility] Last Admin: 06/20/18 09:11 Dose: 50 mg Ondansetron HCl (Zofran Inj) 4 mg IVP Q6 PRN PRN Reason: Nausea/Vomiting Last Admin: 06/20/18 01:57 Dose: 4 mg Zolpidem Tartrate (Ambien) 10 mg PO HS [facility] Last Admin: 06/19/18 22:53 Dose: 10 mg Physical Exam - Constitutional Appears: Toxic - Head Exam Head Exam: NORMAL INSPECTION - Eye Exam Eye Exam: Normal appearance - ENT Exam ENT Exam: Mucous Membranes Moist - Neck Exam Neck exam: Positive for: Normal Inspection. Negative for: Lymphadenopathy, Meningismus, Tenderness, Thyromegaly - Respiratory Exam Respiratory Exam: Decreased Breath Sounds - Cardiovascular Exam Cardiovascular Exam: REGULAR RHYTHM, RRR, +S1, +S2. absent: Gallop, JVD, Rubs, +S4 - GI/Abdominal Exam GI & Abdominal Exam: Diminished Bowel Sounds - Rectal Exam Rectal Exam: Deferred - Extremities Exam Extremities exam: Positive for: normal inspection, pedal pulses present. Negative for: pedal edema - Back Exam Back exam: NORMAL INSPECTION - Neurological Exam Additional comments: confused. appears altered - Skin Skin Exam: Normal Color Results - Vital Signs Recent Vital Signs: Last Vital Signs Temp 97.6 F 06/20/18 08:00 Pulse 99 H 06/20/18 09:11 Resp 12 06/20/18 08:00 BP 122/71 06/20/18 09:12 Pulse Ox 100 06/20/18 08:00 - Labs Result Diagrams: 06/20/18 11:10 06/19/18 05:30 Labs: Laboratory Results - last 24 hr 06/19/18 06/19/18 06/19/18 05:30 10:50 10:50 POC Glucose (mg/dL) Lactic Acid 3.1 H Troponin I 0.3990 H* Procalcitonin 0.11 L 06/19/18 22:59 POC Glucose (mg/dL) 129 H Lactic Acid Troponin I Procalcitonin - EKG Data EKG Interpreted by: Myself EKG shows normal: Sinus rhythm Assessment & Plan (1) CAD (coronary artery disease) Assessment and Plan: patient has known CAD and is s/p CABG. His troponin is elevated but in the setting of renal failure cannot be interpreted. The patient is at high risk for progressive renal failure, if given contrast therefore will not proceed with cardiac cath. His presentation currently is not indicative of acute coronary syndrome. Status: Chronic (2) CHF (congestive heart failure) Assessment and Plan: recommend echocardiogram to assess etiology of heart failure. previous LV function was preserved. Status: Chronic (3) Chronic kidney disease (CKD) Assessment and Plan: likley the etiology of acute compromise. The patient had metabolic acidosis on admission. He may need dialysis as he is currently oliguric. recommend repeat ABG to assess acid base status. Status: Chronic
[2018-06-20 11:44] LABS: ABG ALLEN TEST YES; ARTERIAL BLOOD GAS HCO3 15.4 mmol/L (21-28); ARTERIAL BLOOD GAS HEMOGLOBIN 9.5 g/dL (11.7-17.4); ARTERIAL BLOOD GAS O2 CAPACITY 13.3 mL/dL (16-24); ARTERIAL BLOOD GAS O2 CONTENT 13.4 ML/dL (15-23); ARTERIAL BLOOD GAS O2 SAT 100.4 % (95-98); ARTERIAL BLOOD GAS PCO2 26 mm/Hg (35-45); ARTERIAL BLOOD GAS PO2 168 mm/Hg (80-100); ARTERIAL BLOOD GAS TCO2 13.6 mmol/L (22-28)
[2018-06-20] MEDS ORDERED: Calcium Gluconate 4.65 mEq/10 ml Inj IV ONE (11:46)
[2018-06-20] MEDS ORDERED: Etomidate 20 mg/10ml Inj IV ONE ×2 (11:51→13:07)
[2018-06-20 11:53] LABS: ALB/GLOB RATIO 0.8 (1.0-2.1); ALBUMIN 3.6 g/dL (3.5-5.0); CALCIUM 8.5 mg/dL (8.4-10.2); TROPONIN I 0.694 ng/mL (0.00-0.120)
[2018-06-20] MEDS ORDERED: Dextrose 50% SYRINGE Inj (50 ml) ONE ×2 (11:57→14:01)
[2018-06-20] MEDS ORDERED: Calcium Gluconate 4.6 MEQ in Sodium Chloride 0.9% 100 ML IV ONE (12:00)
[2018-06-20] MEDS ORDERED: Propofol 10 mg/ml 3,000 MG/300 ML VIAL ONE (12:21)
[2018-06-20] MEDS: Propofol 10 mg/ml 1,000 MG/100 ML VIAL IV SCH ×2 (12:30→21:48)
--- NOTE | 2018-06-20 12:55 | CP.PCM.HP ---
History of Present Illness - History of Present Illness History of Present Illness: This is a 78 y/o male with COPD chronic heart failure,hypothyroidism and MDS was admitted for worsening of cough and SOB. He was apparently admitted to another hospital 2 weeks ago and was sent home on po antibiotics however he continued to cough and started having SOB in the past few days and sx worsen hence sought ER evaluation, Past Hx CAD COPD MDS he gets transfusion regularly every week. CKD Hypothyroidism Present on Admission - Present on Admission Any Indicators Present on Admission: No History of DVT/PE: No History of Uncontrolled Diabetes: No Urinary Catheter: No Decubitus Ulcer Present: No Review of Systems - Constitutional Constitutional: Anorexia, Fatigue, Weakness - Respiratory Respiratory: Cough, Dyspnea Past Patient History - Past Medical History & Family History Past Medical History?: Yes - Past Social History Smoking Status: Former Smoker Chewing Tobacco Use: No Cigar Use: No Alcohol: None Drugs: Denies Home Situation {Lives}: With Family - CARDIAC Hx Cardiac Disorders: Yes Hx Congestive Heart Failure: Yes Hx Hypercholesterolemia: Yes Hx Hypertension: Yes - PULMONARY Hx Respiratory Disorders: Yes Hx Asthma: Yes Hx Chronic Obstructive Pulmonary Disease (COPD): Yes Hx Pneumonia: Yes - NEUROLOGICAL Hx Neurological Disorder: No - HEENT Hx HEENT Problems: No - RENAL Hx Chronic Kidney Disease: Yes Hx Renal Failure: Yes - ENDOCRINE/METABOLIC Hx Hypothyroidism: Yes - HEMATOLOGICAL/ONCOLOGICAL Hx Blood Disorders: Yes Hx AIDS: No Hx Anemia: Yes Hx Human Immunodeficiency Virus (HIV): No - INTEGUMENTARY Hx Dermatological Problems: No - MUSCULOSKELETAL/RHEUMATOLOGICAL Hx Musculoskeletal Disorders: Yes Hx Arthritis: Yes Hx Falls: No - GASTROINTESTINAL Hx Gastrointestinal Disorders: No - GENITOURINARY/GYNECOLOGICAL Hx Genitourinary Disorders: Yes Hx Prostate Problems: Yes - PSYCHIATRIC Hx Psychophysiologic Disorder: Yes Hx Anxiety: Yes Hx Substance Use: No - SURGICAL HISTORY Hx Surgeries: Yes Hx Coronary Artery Bypass Graft: Yes Hx Coronary Stent: Yes - ANESTHESIA Hx Anesthesia: Yes Hx Anesthesia Reactions: No Hx Malignant Hyperthermia: No Has any member of the family had a problem w/ anesthesia?: No Meds Allergies/Adverse Reactions: Allergies Allergy/AdvReac Type Severity Reaction Status Date / Time No Known Allergies Allergy Verified 03/18/18 18:25 Physical Exam - Head Exam Head Exam: NORMAL INSPECTION - Eye Exam Eye Exam: Normal appearance - ENT Exam ENT Exam: Mucous Membranes Dry - Respiratory Exam Respiratory Exam: Decreased Breath Sounds, Rales, Rhonchi - Cardiovascular Exam Cardiovascular Exam: REGULAR RHYTHM - GI/Abdominal Exam GI & Abdominal Exam: Normal Bowel Sounds Results - Vital Signs Recent Vital Signs: Last Vital Signs Temp 97.6 F 06/20/18 08:00 Pulse 99 H 06/20/18 09:11 Resp 12 06/20/18 08:00 BP 122/71 06/20/18 09:12 Pulse Ox 100 06/20/18 08:00 - Labs Result Diagrams: 06/29/18 04:20 06/29/18 04:20 Labs: Laboratory Results - last 24 hr 06/19/18 06/19/18 06/20/18 05:30 22:59 11:10 WBC RBC Hgb Hct MCV MCH MCHC RDW Plt Count MPV Neut % (Auto) Lymph % (Auto) [place] % (Auto) Eos % (Auto) Baso % (Auto) Neut # (Auto) Lymph # (Auto) [place] # (Auto) Eos # (Auto) Baso # (Auto) pCO2 pO2 HCO3 ABG pH ABG Total CO2 ABG O2 Saturation ABG O2 Content ABG Base Excess ABG Hemoglobin ABG Carboxyhemoglobin POC ABG HHb (Measured) ABG Methemoglobin ABG O2 Capacity Abdirizak Test A-a O2 Difference Hgb O2 Saturation Liter Flow Vent Mode FiO2 Blood Gas Comments Crit Value Called To Crit Value Called By Crit Value Read Back Blood Gas Notified Time Sodium 131 L Potassium 7.2 H* D Chloride 99 Carbon Dioxide 18 L Anion Gap 21 H BUN 88 H Creatinine 4.6 H Est GFR ( Amer) 15 Est GFR (Non-Af Amer) 12 POC Glucose (mg/dL) 129 H Random Glucose 134 H Calcium 8.5 Total Bilirubin 0.7 AST 208 H D ALT 154 H D Alkaline Phosphatase 62 Troponin I 0.6940 H* Total Protein 8.3 H Albumin 3.6 Globulin 4.7 H Albumin/Globulin Ratio 0.8 L Procalcitonin 0.11 L 06/20/18 06/20/18 11:10 11:32 WBC 13.0 H D RBC 3.21 L Hgb 9.1 L Hct 27.7 L MCV 86.3 MCH 28.3 MCHC 32.8 L RDW 16.8 H Plt Count 51 L MPV 12.3 H Neut % (Auto) 75.2 H Lymph % (Auto) 15.1 L [place] % (Auto) 8.2 Eos % (Auto) 0.2 Baso % (Auto) 1.3 Neut # (Auto) 9.8 H Lymph # (Auto) 2.0 Churchill # (Auto) 1.1 H Eos # (Auto) 0.0 Baso # (Auto) 0.2 pCO2 26 L pO2 168 H HCO3 15.4 L ABG pH 7.30 L ABG Total CO2 13.6 L ABG O2 Saturation 100.4 H ABG O2 Content 13.4 L ABG Base Excess -12.2 L ABG Hemoglobin 9.5 L ABG Carboxyhemoglobin 1.5 POC ABG HHb (Measured) -0.4 L ABG Methemoglobin 1.4 ABG O2 Capacity 13.3 L Abdirizak Test Yes A-a O2 Difference 113.0 Hgb O2 Saturation 97.5 Liter Flow 6 Vent Mode Nc FiO2 44.0 Blood Gas Comments Nc 6 lpm Crit Value Called To Dr kaitlynn stauffer Crit Value Called By Keri Crit Value Read Back Y Blood Gas Notified Time 1144 Sodium Potassium Chloride Carbon Dioxide Anion Gap BUN Creatinine Est GFR ( Amer) Est GFR (Non-Af Amer) POC Glucose (mg/dL) Random Glucose Calcium Total Bilirubin AST ALT Alkaline Phosphatase Troponin I Total Protein Albumin Globulin Albumin/Globulin Ratio Procalcitonin Assessment & Plan (1) Acute respiratory failure with hypoxia Status: Acute Priority: High (2) COPD exacerbation Status: Acute Priority: High (3) Pneumonia Status: Acute Priority: High (4) Renal failure (ARF), acute on chronic Status: Acute Priority: High (5) Myelodysplasia (myelodysplastic syndrome) Status: Chronic Priority: High (6) Severe anemia Status: Acute (7) Thrombocytopenia Status: Acute - Assessment and Plan (Free Text) Plan: start IV antibiotics troponn ECHO diuretic neb tx crdiology and pulmonary eval ICU check labs cbc cmp
--- NOTE | 2018-06-20 12:57 | CP.PCM.PN ---
Subjective - Date & Time of Evaluation Date of Evaluation: 06/20/18 Time of Evaluation: 12:56 - Subjective Subjective: Patient was noted to have elevated Objective - Vital Signs/Intake and Output Vital Signs (last 24 hours): Temp Pulse Resp BP Pulse Ox 97.6 F 107 H 12 122/71 100 06/20/18 08:00 06/20/18 12:15 06/20/18 08:00 06/20/18 09:12 06/20/18 08:00 Intake and Output: 06/20/18 06/20/18 06:59 18:59 Intake Total 290 Output Total 350 Balance -60 - Medications Medications: Current Medications Acetaminophen (Tylenol 325mg Tab) 650 mg PO Q6 PRN PRN Reason: Headache Last Admin: 06/20/18 01:26 Dose: 650 mg Aspirin (Aspirin Chewable) 81 mg PO DAILY [facility] Last Admin: 06/20/18 09:10 Dose: 81 mg Furosemide (Lasix) 40 mg IVP BID [facility] Last Admin: 06/20/18 09:12 Dose: 40 mg Guaifenesin (Robitussin) 100 mg PO Q4 PRN PRN Reason: Cough Last Admin: 06/19/18 22:54 Dose: 100 mg Calcium Gluconate 4.6 meq/ (Sodium Chloride) 109.8924 mls @ 109.892 mls/hr IV ONCE ONE Stop: 06/20/18 12:59 Sodium Bicarbonate 150 meq/ (Dextrose) 1,150 mls @ 200 mls/hr IV .Q5H45M [facility] Stop: 06/21/18 12:14 Ipratropium [place] (Atrovent) 0.5 mg IH RQ4 [facility] Last Admin: 06/20/18 12:22 Dose: 0.5 mg Levalbuterol HCl (Xopenex) 1.25 mg INH RQ2 PRN PRN Reason: Shortness of Breath Last Admin: 06/20/18 10:03 Dose: 1.25 mg Levalbuterol HCl (Xopenex) 1.25 mg INH RQ4 [facility] Last Admin: 06/20/18 12:22 Dose: 1.25 mg Metoprolol Tartrate (Lopressor) 50 mg PO Q12 [facility] Last Admin: 06/20/18 09:11 Dose: 50 mg Ondansetron HCl (Zofran Inj) 4 mg IVP Q6 PRN PRN Reason: Nausea/Vomiting Last Admin: 06/20/18 01:57 Dose: 4 mg Zolpidem Tartrate (Ambien) 10 mg PO HS [facility] Last Admin: 06/19/18 22:53 Dose: 10 mg - Labs Labs: 06/20/18 11:10 06/20/18 11:10 PT 14.4 Seconds (9.8-13.1) H 06/18/18 12:50 INR 1.3 06/18/18 12:50
[2018-06-20] MEDS ORDERED: Sodium Bicarbonate 7.5% (0.9 MEQ/ML) 50ML INJ IV ONE (13:01)
[2018-06-20] MEDS ORDERED: Calcium Chloride 1000 mg/10 ml Syringe IV ONE (13:01)
[2018-06-20] MEDS ORDERED: Dextrose 50% SYRINGE Inj (50 ml) IVP ONE (13:01)
[2018-06-20] MEDS ORDERED: Insulin Regular 100 units/ml IV ONE (13:15)
[2018-06-20] MEDS: Sodium Bicarbonate 8.4% 150 MEQ in Dextrose 5% In Water 1,000 ML IV SCH ×2 (14:34→21:57)
--- NOTE | 2018-06-20 15:00 | CP.PCM.CON ---
History of Present Illness - History of Present Illness History of Present Illness: Mr. Farmer is 78 yo wm with pmh/o MDS, cad, s/p CABG about 15 yrs ago, hypothyroidism, CHF, COPD was admitted to [facility] for about 2 months as per pt's family. who discharged about 2 weks ago was presedted to ER on with cc/o severe cough, sob, cough ass ociated yellow sputum for few days. s/p LEASE PICKER, pt was transferred to iCU. renal consult is requested for worsening renal function since admission, pt was in resp. distress and intubated electively this am, pt also develeoped met. acidosis, resp.acidosis and severe hyperkalemia, s/p rt FV catheter , scheduled for HD this afternoon, pt is on vent, arousable, following commands. Review of Systems - Constitutional Constitutional: As Per HPI - EENT Eyes: As Per HPI Ears: As Per HPI Nose/Mouth/Throat: As Per HPI - Cardiovascular Cardiovascular: As Per HPI - Respiratory Respiratory: As Per HPI, Cough, Dyspnea, Dyspnea on Exertion - Gastrointestinal Gastrointestinal: As Per HPI - Genitourinary Genitourinary: As Per HPI - Musculoskeletal Musculoskeletal: As Per HPI - Integumentary Integumentary: As Per HPI - Neurological Neurological: As Per HPI - Psychiatric Psychiatric: As Per HPI - Endocrine Endocrine: As Per HPI - Hematologic/Lymphatic Hematologic: As Per HPI Past Patient History - Past Medical History & Family History Past Medical History?: Yes - Past Social History Smoking Status: Former Smoker Chewing Tobacco Use: No Cigar Use: No Alcohol: None Drugs: Denies Home Situation {Lives}: With Family - CARDIAC Hx Cardiac Disorders: Yes Hx Congestive Heart Failure: Yes Hx Hypercholesterolemia: Yes Hx Hypertension: Yes - PULMONARY Hx Respiratory Disorders: Yes Hx Asthma: Yes Hx Chronic Obstructive Pulmonary Disease (COPD): Yes Hx Pneumonia: Yes - NEUROLOGICAL Hx Neurological Disorder: No - HEENT Hx HEENT Problems: No - RENAL Hx Chronic Kidney Disease: Yes Hx Renal Failure: Yes - ENDOCRINE/METABOLIC Hx Hypothyroidism: Yes - HEMATOLOGICAL/ONCOLOGICAL Hx Blood Disorders: Yes Hx AIDS: No Hx Anemia: Yes Hx Human Immunodeficiency Virus (HIV): No - INTEGUMENTARY Hx Dermatological Problems: No - MUSCULOSKELETAL/RHEUMATOLOGICAL Hx Musculoskeletal Disorders: Yes Hx Arthritis: Yes Hx Falls: No - GASTROINTESTINAL Hx Gastrointestinal Disorders: No - GENITOURINARY/GYNECOLOGICAL Hx Genitourinary Disorders: Yes Hx Prostate Problems: Yes - PSYCHIATRIC Hx Psychophysiologic Disorder: Yes Hx Anxiety: Yes Hx Substance Use: No - SURGICAL HISTORY Hx Surgeries: Yes Hx Coronary Artery Bypass Graft: Yes Hx Coronary Stent: Yes - ANESTHESIA Hx Anesthesia: Yes Hx Anesthesia Reactions: No Hx Malignant Hyperthermia: No Has any member of the family had a problem w/ anesthesia?: No Meds Allergies/Adverse Reactions: Allergies Allergy/AdvReac Type Severity Reaction Status Date / Time No Known Allergies Allergy Verified 03/18/18 18:25 - Medications Medications: Current Medications Acetaminophen (Tylenol 325mg Tab) 650 mg PO Q6 PRN PRN Reason: Headache Last Admin: 06/20/18 01:26 Dose: 650 mg Aspirin (Aspirin Chewable) 81 mg PO DAILY [facility] Last Admin: 06/20/18 09:10 Dose: 81 mg Furosemide (Lasix) 40 mg IVP BID [facility] Last Admin: 06/20/18 09:12 Dose: 40 mg Guaifenesin (Robitussin) 100 mg PO Q4 PRN PRN Reason: Cough Last Admin: 06/19/18 22:54 Dose: 100 mg Sodium Bicarbonate 150 meq/ (Dextrose) 1,150 mls @ 200 mls/hr IV .Q5H45M [facility] Stop: 06/21/18 12:14 Last Admin: 06/20/18 14:34 Dose: 200 mls/hr Propofol (Diprivan) 1,000 mg in 100 mls @ 2.313 mls/hr IV .Q24H [facility]; Protocol Stop: 06/21/18 13:01 Last Admin: 06/20/18 12:30 Dose: 5 mcg/kg/min, 2.313 mls/hr Ipratropium [place] (Atrovent) 0.5 mg IH RQ4 [facility] Last Admin: 06/20/18 12:22 Dose: 0.5 mg Levalbuterol HCl (Xopenex) 1.25 mg INH RQ2 PRN PRN Reason: Shortness of Breath Last Admin: 06/20/18 10:03 Dose: 1.25 mg Levalbuterol HCl (Xopenex) 1.25 mg INH RQ4 [facility] Last Admin: 06/20/18 12:22 Dose: 1.25 mg Metoprolol Tartrate (Lopressor) 50 mg PO Q12 [facility] Last Admin: 06/20/18 09:11 Dose: 50 mg Ondansetron HCl (Zofran Inj) 4 mg IVP Q6 PRN PRN Reason: Nausea/Vomiting Last Admin: 06/20/18 01:57 Dose: 4 mg Zolpidem Tartrate (Ambien) 10 mg PO HS [facility] Last Admin: 06/19/18 22:53 Dose: 10 mg Physical Exam - Constitutional Appears: No Acute Distress Additional comments: s/p intubation, on vent, arousable - Head Exam Head Exam: ATRAUMATIC, NORMAL INSPECTION, NORMOCEPHALIC - Eye Exam Eye Exam: EOMI, Normal appearance, PERRL Pupil Exam: NORMAL ACCOMODATION - ENT Exam ENT Exam: Mucous Membranes Moist - Neck Exam Neck exam: Positive for: Normal Inspection - Respiratory Exam Respiratory Exam: Clear to Auscultation Bilateral, NORMAL BREATHING PATTERN - Cardiovascular Exam Cardiovascular Exam: REGULAR RHYTHM, +S1, +S2 Additional comments: on vent - GI/Abdominal Exam GI & Abdominal Exam: Normal Bowel Sounds, Soft - Rectal Exam Rectal Exam: Deferred - Extremities Exam Extremities exam: Positive for: normal inspection - Neurological Exam Additional comments: on vent , under sedation, opens eyes to verbal stimuli - Skin Skin Exam: Normal Color, Warm Results - Vital Signs Recent Vital Signs: Last Vital Signs Temp 97.6 F 06/20/18 08:00 Pulse 107 H 06/20/18 12:15 Resp 12 06/20/18 08:00 BP 122/71 06/20/18 09:12 Pulse Ox 100 06/20/18 08:00 - Labs Result Diagrams: 06/20/18 11:10 06/20/18 18:53 Labs: Laboratory Results - last 24 hr 06/19/18 06/19/18 06/20/18 05:30 22:59 11:10 WBC RBC Hgb Hct MCV MCH MCHC RDW Plt Count MPV Neut % (Auto) Lymph % (Auto) [place] % (Auto) Eos % (Auto) Baso % (Auto) Neut # (Auto) Lymph # (Auto) [place] # (Auto) Eos # (Auto) Baso # (Auto) pCO2 pO2 HCO3 ABG pH ABG Total CO2 ABG O2 Saturation ABG O2 Content ABG Base Excess ABG Hemoglobin ABG Carboxyhemoglobin POC ABG HHb (Measured) ABG Methemoglobin ABG O2 Capacity Abdirizak Test A-a O2 Difference Hgb O2 Saturation Liter Flow Vent Mode FiO2 Blood Gas Comments Crit Value Called To Crit Value Called By Crit Value Read Back Blood Gas Notified Time Sodium 131 L Potassium 7.2 H* D Chloride 99 Carbon Dioxide 18 L Anion Gap 21 H BUN 88 H Creatinine 4.6 H Est GFR ( Amer) 15 Est GFR (Non-Af Amer) 12 POC Glucose (mg/dL) 129 H Random Glucose 134 H Calcium 8.5 Total Bilirubin 0.7 AST 208 H D ALT 154 H D Alkaline Phosphatase 62 Troponin I 0.6940 H* Total Protein 8.3 H Albumin 3.6 Globulin 4.7 H Albumin/Globulin Ratio 0.8 L Procalcitonin 0.11 L 06/20/18 06/20/18 11:10 11:32 WBC 13.0 H D RBC 3.21 L Hgb 9.1 L Hct 27.7 L MCV 86.3 MCH 28.3 MCHC 32.8 L RDW 16.8 H Plt Count 51 L MPV 12.3 H Neut % (Auto) 75.2 H Lymph % (Auto) 15.1 L [place] % (Auto) 8.2 Eos % (Auto) 0.2 Baso % (Auto) 1.3 Neut # (Auto) 9.8 H Lymph # (Auto) 2.0 [place] # (Auto) 1.1 H Eos # (Auto) 0.0 Baso # (Auto) 0.2 pCO2 26 L pO2 168 H HCO3 15.4 L ABG pH 7.30 L ABG Total CO2 13.6 L ABG O2 Saturation 100.4 H ABG O2 Content 13.4 L ABG Base Excess -12.2 L ABG Hemoglobin 9.5 L ABG Carboxyhemoglobin 1.5 POC ABG HHb (Measured) -0.4 L ABG Methemoglobin 1.4 ABG O2 Capacity 13.3 L Abdirizak Test Yes A-a O2 Difference 113.0 Hgb O2 Saturation 97.5 Liter Flow 6 Vent Mode Nc FiO2 44.0 Blood Gas Comments Nc 6 lpm Crit Value Called To Dr kaitlynn stauffer Crit Value Called By Keri Crit Value Read Back Y Blood Gas Notified Time 1144 Sodium Potassium Chloride Carbon Dioxide Anion Gap BUN Creatinine Est GFR ( Amer) Est GFR (Non-Af Amer) POC Glucose (mg/dL) Random Glucose Calcium Total Bilirubin AST ALT Alkaline Phosphatase Troponin I Total Protein Albumin Globulin Albumin/Globulin Ratio Procalcitonin - Imaging and Cardiology Chest x-ray Status: Report reviewed by me Assessment & Plan - Assessment and Plan (Free Text) Assessment: Mr. Farmer is 78 yo wm with pmh/o MDS, cad, s/p CABG about 15 yrs ago, hypothyroidism, CHF, COPD was admitted to [facility] for about 2 months as per pt's family. who discharged about 2 weks ago was presedted to ER on with cc/o severe cough, sob, cough ass ociated yellow sputum for few days. s/p intubation with worsening renal function , hyperkalemia 1. ROSE on ckd-4 2. HYperkalemia 3. Acute resp. failure 4. s/p intubation 5. Acute exaccerbation of COPD 6. MDS 7. Anemia s/p Rt fv catheter placement pt is being dialyzed check hep. b, c serology repeat bmp pre and post HD d/w pt's family at bed side d/w ICU attending in rounds Plan: As above
--- NOTE | 2018-06-20 15:06 | PCM.PROC ---
Procedures Attestation:: I certify that I have explained the specified Operation(s) or Procedure(s), risks, benefits and reasonable alternatives to the Patient and/or other person responsible. The opportunity was given to ask questions and all questions answered - Intubation Sedative: Etomidate Laryngoscope: Warren ET Tube Size: 7.5 ET Tube Uncuffed: Yes ET Tube Secured Locarion: Lips ET Tube Placement Confirmation: Visualized Passing Through Cords, Breath Sounds Equal Bilaterally, Confirmation w/Capnometry Patient Tolerated Procedure: Well Procedure Immediate Complications: None
--- NOTE | 2018-06-20 15:08 | PCM.PROC ---
Procedures Attestation:: I certify that I have explained the specified Operation(s) or Procedure(s), risks, benefits and reasonable alternatives to the Patient and/or other person responsible. The opportunity was given to ask questions and all questions answered - Central Line Placement Right Femoral Hemodialysis Access Aseptic technique was employed throughout the procedure: Full sterile barriers (mask, hair cover, sterile gown, sterile gloves), Full body sterile drape, Chloraprep Antiseptic: 30 second prep for IJ or SC sites CVP Time Out Performed: Yes Pt. Placed on Pulse Ox Monitor: Yes Central Line Prep: Chlorhexidine-Alcohol Combination Local Anesthesia Used: Lidocaine 2% Ultrasound Used for Placement: No Central Line Lumen Inserted: double Central Line Length: 20 cm Post Procedure: Sutured in Place, Good Blood Return, All Ports Aspirated, Flushed, Capped, Sterile Dressing Applied Secured by: Suture Post procedure dressing: Gauze Post Procedure X-Ray: No Patient Tolerated Procedure: Well Immediate Complications: None
[2018-06-20 16:15] LABS: BLOOD UREA NITROGEN 86 mg/dl (9-20); CALCIUM 9.2 mg/dL (8.4-10.2); GFR NON-AFRICAN AMERICAN 13
--- NOTE | 2018-06-20 17:35 | RAD ---
Date of service: 06/20/2018 PROCEDURE: CHEST RADIOGRAPH, 1 VIEW HISTORY: CHF, resp failure, COPD COMPARISON: Comparison is made with 06/18/2018 FINDINGS: LUNGS: Interval worsening of perihilar opacities left more than right since the previous study. There is consolidation at the left lower chest may represent atelectasis or infiltrate associated with left pleural effusion. PLEURA: Suspicious for left pleural effusion. CARDIOVASCULAR: Normal. OSSEOUS STRUCTURES: No significant abnormalities. VISUALIZED UPPER ABDOMEN: Normal. OTHER FINDINGS: None. IMPRESSION: Worsening opacities in the left lower lung since the previous exam with possible new left pleural effusion.
--- NOTE | 2018-06-20 17:52 | RAD ---
Date of service: 06/20/2018 HISTORY: intubation COMPARISON: Comparison is made with previous same-day exam. FINDINGS: LUNGS: Status post intubation. The ET tube seen as somewhat low position pointing to were the right with the tip at the level of jorge luis. Patchy opacities in the lungs more prominent on the left. PLEURA: No significant pleural effusion identified, no pneumothorax apparent. CARDIOVASCULAR: Normal. OSSEOUS STRUCTURES: No significant abnormalities. VISUALIZED UPPER ABDOMEN: Normal. OTHER FINDINGS: None. IMPRESSION: Low position of the ETT pointing to the right main bronchus. Redemonstration of bilateral opacities in the lungs and blunting of the left costophrenic angle.
[2018-06-20 18:36] LABS: ABG ALLEN TEST YES; ARTERIAL BLOOD GAS HCO3 30.8 mmol/L (21-28); ARTERIAL BLOOD GAS HEMOGLOBIN 7.8 g/dL (11.7-17.4); ARTERIAL BLOOD GAS O2 CAPACITY 11.6 mL/dL (16-24); ARTERIAL BLOOD GAS O2 CONTENT 11.7 ML/dL (15-23); ARTERIAL BLOOD GAS O2 SAT 100.7 % (95-98); ARTERIAL BLOOD GAS PCO2 38 mm/Hg (35-45); ARTERIAL BLOOD GAS PH 7.52 (7.35-7.45); ARTERIAL BLOOD GAS PO2 322 mm/Hg (80-100); ARTERIAL BLOOD GAS TCO2 32.2 mmol/L (22-28)
[2018-06-20 19:19] LABS: CALCIUM 8.2 mg/dL (8.4-10.2)
[2018-06-20] MEDS: MethylPREDNISolone 40 mg Vial IVP SCH (21:48)
--- NOTE | 2018-06-20 23:06 | CARD ---
APPROVED REPORT Date of service: 06/20/2018 EKG Measurement Heart [id number] <Conclusion> Normal sinus rhythm ST & T wave abnormality, consider lateral ischemia Abnormal ECG
[2018-06-20] MEDS: guaiFENesin 100 mg/5 ml Syrup UD PO PRN (23:55)
[2018-06-21] MEDS: Levalbuterol 1.25 MG/3 ML Inhal Soln UD INH SCH ×7 (00:53→23:37)
[2018-06-21] MEDS: Ipratropium 0.02% Inhal Soln (0.5 mg/2.5 ml) UD IH SCH ×7 (00:53→23:37)
[2018-06-21] MEDS: Sodium Bicarbonate 8.4% 150 MEQ in Dextrose 5% In Water 1,000 ML IV SCH ×2 (03:06→08:00)
[2018-06-21 04:53] LABS: ABG ALLEN TEST YES; ARTERIAL BLOOD GAS HCO3 36.1 mmol/L (21-28); ARTERIAL BLOOD GAS HEMOGLOBIN 7.6 g/dL (11.7-17.4); ARTERIAL BLOOD GAS O2 CAPACITY 10.8 mL/dL (16-24); ARTERIAL BLOOD GAS O2 CONTENT 10.9 ML/dL (15-23); ARTERIAL BLOOD GAS O2 SAT 100.9 % (95-98); ARTERIAL BLOOD GAS PCO2 40 mm/Hg (35-45); ARTERIAL BLOOD GAS PH 7.58 (7.35-7.45); ARTERIAL BLOOD GAS PO2 170 mm/Hg (80-100); ARTERIAL BLOOD GAS TCO2 38.7 mmol/L (22-28)
[2018-06-21 05:12] LABS: HEMOGLOBIN 7.6 g/dL (12.0-18.0); MEAN CELL VOLUME 84.7 fl (80.0-94.0); MEAN CORPUSCULAR HEMOGLOBIN 29.3 pg (27.0-31.0); MEAN CORPUSCULAR HGB CONC 34.6 g/dL (33.0-37.0); RBC 2.6 Mil/uL (4.40-5.90); WHITE BLOOD COUNT 3.9 K/uL (4.8-10.8)
[2018-06-21 05:24] LABS: CALCIUM 7.9 mg/dL (8.4-10.2)
--- NOTE | 2018-06-21 07:29 | CP.CCUPN ---
CCU Subjective - Physician Review Subjective (Free Text): 06/21/18 The patient was Seen and examined by me at the bedside during ICU round, Medical records reviewed and Management issues were discussed and formulated with the house staff. Events reviewed Mr Romeo is a 78 Years old Male with PMHx of HTN, CKD-4, Myelodysplastic Syndrome, CHF, Asthma and COPD Who initially presented to the Emergency department with Two days of worsening SOB with productive cough. Apparently he was admitted a few weeks ago and dx with pneumonia and discharged on antibiotics. On 06/20 morning he developed an episode of acute SOB and was very restless ad improved for the time being with bronchodilators, IV steroids and IV lasix but continue to be very anxious , resless and at time SOB, although Oxy sat remained > 95% all the time but was hyperventilating. ABG was done , which also showed K 7.4, and stat blood work also showed K 7.2, with no hemolysis , pt was also oliguric by new High K was treated with IV bicarb, D50, insulin and pt needed dialysis due to worsening renal failure, high K and worsening metabolic acidosis, probably was the reason for his acute AMS and being very restless and tachypnic. Patient was urgently intubated for being very tachypnic , confusing and airway protection as he vomited twice also. Consent for HD and dialysis cath insertion ws taken from patient's NOK, his neice and HD catheter was inserted HD to be started. This morning, he is comfortable, Sedated and orally intubated, NAD Afebrile, NSR on the monitor Last 24H I&O 2300/150 CXR reviewed; small stable left perihilar and Bibasilar infiltrate Will send 2 sets of blood culturesd and Start IV Antibiotics with IV Vancomycin (post HD) and Piperacillin Sod/Tazobactam This morning labs revealed improved WBC, H/H drop to 7.6/22, improved renal function BUN/Cr 47/2.7 with resolved hyperkalemia, K of 4.4, Pt scheduled for HD session today and will transfuse 2U packed RBC with HD. 06/21/18 14:38 Will start tube feeding via OG tube with [facility] Critical Care Time Spent (in minutes): 48 CCU Objective - Vital Signs / Intake & Output Vital Signs (Last 4 hours): Vital Signs Temp Pulse Resp BP Pulse Ox 06/21/18 06:00 76 14 139/60 100 06/21/18 05:00 77 16 139/73 100 06/21/18 04:00 98.3 F 80 16 136/56 L 100 Intake and Output (Last 8hrs): Intake & Output 06/20/18 06/21/18 06/21/18 22:59 06:59 14:59 Intake Total 1300 1000 Balance 1300 1000 Intake: IV 1300 880 Tube Feeding 60 Free Water Flush 60 - Physical Exam Physical Exam Limitations: Positive for: Altered Mental Status, Clinical Condition Head: Positive for: Atraumatic, Normocephalic Pupils: Positive for: PERRL, Sluggish Extroacular Muscles: Positive for: EOMI Conjunctiva: Positive for: Normal. Negative for: Injected, Icteric Ears: Positive for: Normal Mouth: Positive for: Moist Mucous Membranes Pharnyx: Positive for: Normal Nose (Internal): Positive for: Normal Inspection Neck: Positive for: Normal Range of Motion, Trachea Midline. Negative for: Meningeal Signs, MIDLINE TENDERNESS, Paraspinal Tenderness, JVD, Lymphadenopathy, Bruit, Other Respiratory/Chest: Positive for: Decreased Breath Sounds, Rales, Rhonchi. Negative for: Clear to Auscultation, Respiratory Distress, Accessory Muscle Use, Wheezes, Tachypneic, Tender to Palpation Cardiovascular: Positive for: Regular Rate and Rhythm, Normal S1, S2, Peripheal Pulses Present, Tachycardic. Negative for: Murmurs, Irregular Rhythm Abdomen: Positive for: Distention. Negative for: Tenderness, Peritoneal Signs - Medications Active Medications: Active Medications Generic Name Dose Route Start Last Admin Trade Name Freq PRN Reason Stop Dose Admin Acetaminophen 650 mg 06/19/18 21:47 06/20/18 01:26 Tylenol 325mg Tab PO 650 mg Q6 PRN Administration Headache Aspirin 81 mg 06/20/18 09:00 06/20/18 09:10 Aspirin Chewable PO 81 mg DAILY TOMÁS Administration Furosemide 40 mg 06/19/18 22:00 06/20/18 18:28 Lasix IVP Not Given BID TOMÁS Guaifenesin 100 mg 06/19/18 21:47 06/20/18 23:55 Robitussin PO 100 mg Q4 PRN Administration Cough Sodium Bicarbonate 150 meq/ 1,150 mls @ 200 mls/hr 06/20/18 12:15 06/21/18 03:06 Dextrose IV 06/21/18 12:14 200 mls/hr .Q5H45M TOMÁS Administration Propofol 1,000 mg in 100 mls @ 2.313 mls/hr 06/20/18 13:00 06/21/18 06:55 Diprivan IV 06/21/18 13:01 25 mcg/kg/min .Q24H TOMÁS 11.567 mls/hr Titration Protocol 5 MCG/KG/MIN Ipratropium [place] 0.5 mg 06/20/18 00:00 06/21/18 04:11 Atrovent IH 0.5 mg RQ4 TOMÁS Administration Levalbuterol HCl 1.25 mg 06/19/18 21:47 06/20/18 10:03 Xopenex INH 1.25 mg RQ2 PRN Administration Shortness of Breath Levalbuterol HCl 1.25 mg 06/20/18 00:00 06/21/18 04:11 Xopenex INH 1.25 mg RQ4 TOMÁS Administration Methylprednisolone 40 mg 06/20/18 21:00 06/20/18 21:48 Solu-Medrol IVP 40 mg Q12 TOMÁS Administration Metoprolol Tartrate 50 mg 06/19/18 22:00 06/20/18 23:54 Lopressor PO 50 mg Q12 TOMÁS Administration Ondansetron HCl 4 mg 06/20/18 01:16 06/20/18 01:57 Zofran Inj IVP 4 mg Q6 PRN Administration Nausea/Vomiting Zolpidem Tartrate 10 mg 06/19/18 22:00 06/20/18 21:30 Ambien PO Not Given HS TOMÁS - Patient Studies Lab Studies: Microbiology Studies 06/18/18 15:30 Blood Culture - Preliminary Blood-Venous NO GROWTH AFTER 48 HOURS 06/18/18 11:55 Blood Culture - Preliminary Blood-Venous NO GROWTH AFTER 48 HOURS 06/18/18 06:15 MRSA Culture (Admit) - Final [facility] Lab Studies 06/21/18 06/21/18 06/21/18 Range/Units 04:24 04:20 04:20 WBC 3.9 L D (4.8-10.8) K/uL RBC 2.60 L (4.40-5.90) Mil/uL Hgb 7.6 L (12.0-18.0) g/dL Hct 22.0 L (35.0-51.0) % MCV 84.7 (80.0-94.0) fl MCH 29.3 (27.0-31.0) pg MCHC 34.6 (33.0-37.0) g/dL RDW 16.0 H (11.5-14.5) % Plt Count 26 L* D (130-400) K/uL MPV (7.2-11.7) fl Neut % (Auto) (50.0-75.0) % Lymph % (Auto) (20.0-40.0) % [place] % (Auto) (0.0-10.0) % Eos % (Auto) (0.0-4.0) % Baso % (Auto) (0.0-2.0) % Neut # (Auto) (1.8-7.0) K/uL Lymph # (Auto) (1.0-4.3) K/uL [place] # (Auto) (0.0-0.8) K/uL Eos # (Auto) (0.0-0.7) K/uL Baso # (Auto) (0.0-0.2) K/uL pCO2 40 (35-45) mm/Hg pO2 170 H (80-100) mm/Hg HCO3 36.1 H (21-28) mmol/L ABG pH 7.58 H (7.35-7.45) ABG Total CO2 38.7 H (22-28) mmol/L ABG O2 Saturation 100.9 H (95-98) % ABG O2 Content 10.9 L (15-23) ML/dL ABG Base Excess 14.3 H (-2.0-3.0) mmol/L ABG Hemoglobin 7.6 L (11.7-17.4) g/dL ABG Carboxyhemoglobin 1.6 H (0.5-1.5) % POC ABG HHb (Measured) -0.9 L (0.0-5.0) % ABG Methemoglobin 1.4 (0.0-3.0) % ABG O2 Capacity 10.8 L (16-24) mL/dL Abdirizak Test Yes A-a O2 Difference 65.0 mm/Hg Hgb O2 Saturation 97.9 (95.0-98.0) % Liter Flow Vent Mode Prvc ac Mechanical Rate 12 FiO2 40.0 % Tidal Volume 500 PEEP 5 Blood Gas Comments Crit Value Called To Crit Value Called By Crit Value Read Back Blood Gas Notified Time Sodium 134 (132-148) mmol/l Potassium 4.4 (3.6-5.0) MMOL/L Chloride 92 L (98-107) mmol/L Carbon Dioxide 37 H (22-30) mmol/L Anion Gap 9 L (10-20) BUN 47 H (9-20) mg/dl Creatinine 2.7 H (0.8-1.5) mg/dl Est GFR ( Amer) 28 Est GFR (Non-Af Amer) 23 POC Glucose (mg/dL) (65-110) mg/dL Random Glucose 158 H (75-110) mg/dL Calcium 7.9 L (8.4-10.2) mg/dL Total Bilirubin (0.2-1.3) mg/dl AST (17-59) U/L ALT (21-72) U/L Alkaline Phosphatase (38-126) U/L Troponin I (0.00-0.120) ng/mL Total Protein (6.3-8.2) G/DL Albumin (3.5-5.0) g/dL Globulin (2.2-3.9) gm/dL Albumin/Globulin Ratio (1.0-2.1) 06/20/18 06/20/18 06/20/18 Range/Units 18:53 18:22 15:56 WBC (4.8-10.8) K/uL RBC (4.40-5.90) Mil/uL Hgb (12.0-18.0) g/dL Hct (35.0-51.0) % MCV (80.0-94.0) fl MCH (27.0-31.0) pg MCHC (33.0-37.0) g/dL RDW (11.5-14.5) % Plt Count (130-400) K/uL MPV (7.2-11.7) fl Neut % (Auto) (50.0-75.0) % Lymph % (Auto) (20.0-40.0) % [place] % (Auto) (0.0-10.0) % Eos % (Auto) (0.0-4.0) % Baso % (Auto) (0.0-2.0) % Neut # (Auto) (1.8-7.0) K/uL Lymph # (Auto) (1.0-4.3) K/uL [place] # (Auto) (0.0-0.8) K/uL Eos # (Auto) (0.0-0.7) K/uL Baso # (Auto) (0.0-0.2) K/uL pCO2 38 (35-45) mm/Hg pO2 322 H (80-100) mm/Hg HCO3 30.8 H (21-28) mmol/L ABG pH 7.52 H (7.35-7.45) ABG Total CO2 32.2 H (22-28) mmol/L ABG O2 Saturation 100.7 H (95-98) % ABG O2 Content 11.7 L (15-23) ML/dL ABG Base Excess 7.5 H (-2.0-3.0) mmol/L ABG Hemoglobin 7.8 L (11.7-17.4) g/dL ABG Carboxyhemoglobin 0.9 (0.5-1.5) % POC ABG HHb (Measured) -0.7 L (0.0-5.0) % ABG Methemoglobin 1.2 (0.0-3.0) % ABG O2 Capacity 11.6 L (16-24) mL/dL Abdirizak Test Yes A-a O2 Difference 58.0 mm/Hg Hgb O2 Saturation 98.6 H (95.0-98.0) % Liter Flow Vent Mode Prvc/c Mechanical Rate 12 FiO2 60.0 % Tidal Volume 500 PEEP 5 Blood Gas Comments Crit Value Called To Crit Value Called By Crit Value Read Back Blood Gas Notified Time Sodium 136 133 (132-148) mmol/l Potassium 3.8 5.7 H (3.6-5.0) MMOL/L Chloride 99 100 (98-107) mmol/L Carbon Dioxide 33 H 24 (22-30) mmol/L Anion Gap 8 L 15 (10-20) BUN 32 H 86 H (9-20) mg/dl Creatinine 1.8 H 4.3 H (0.8-1.5) mg/dl Est GFR ( Amer) 45 16 Est GFR (Non-Af Amer) 37 13 POC Glucose (mg/dL) (65-110) mg/dL Random Glucose 147 H 118 H (75-110) mg/dL Calcium 8.2 L 9.2 (8.4-10.2) mg/dL Total Bilirubin (0.2-1.3) mg/dl AST (17-59) U/L ALT (21-72) U/L Alkaline Phosphatase (38-126) U/L Troponin I (0.00-0.120) ng/mL Total Protein (6.3-8.2) G/DL Albumin (3.5-5.0) g/dL Globulin (2.2-3.9) gm/dL Albumin/Globulin Ratio (1.0-2.1) 06/20/18 06/20/18 06/20/18 Range/Units 14:54 13:56 11:55 WBC (4.8-10.8) K/uL RBC (4.40-5.90) Mil/uL Hgb (12.0-18.0) g/dL Hct (35.0-51.0) % MCV (80.0-94.0) fl MCH (27.0-31.0) pg MCHC (33.0-37.0) g/dL RDW (11.5-14.5) % Plt Count (130-400) K/uL MPV (7.2-11.7) fl Neut % (Auto) (50.0-75.0) % Lymph % (Auto) (20.0-40.0) % [place] % (Auto) (0.0-10.0) % Eos % (Auto) (0.0-4.0) % Baso % (Auto) (0.0-2.0) % Neut # (Auto) (1.8-7.0) K/uL Lymph # (Auto) (1.0-4.3) K/uL [place] # (Auto) (0.0-0.8) K/uL Eos # (Auto) (0.0-0.7) K/uL Baso # (Auto) (0.0-0.2) K/uL pCO2 (35-45) mm/Hg pO2 (80-100) mm/Hg HCO3 (21-28) mmol/L ABG pH (7.35-7.45) ABG Total CO2 (22-28) mmol/L ABG O2 Saturation (95-98) % ABG O2 Content (15-23) ML/dL ABG Base Excess (-2.0-3.0) mmol/L ABG Hemoglobin (11.7-17.4) g/dL ABG Carboxyhemoglobin (0.5-1.5) % POC ABG HHb (Measured) (0.0-5.0) % ABG Methemoglobin (0.0-3.0) % ABG O2 Capacity (16-24) mL/dL Abdirizak Test A-a O2 Difference mm/Hg Hgb O2 Saturation (95.0-98.0) % Liter Flow Vent Mode Mechanical Rate FiO2 % Tidal Volume PEEP Blood Gas Comments Crit Value Called To Crit Value Called By Crit Value Read Back Blood Gas Notified Time Sodium (132-148) mmol/l Potassium (3.6-5.0) MMOL/L Chloride (98-107) mmol/L Carbon Dioxide (22-30) mmol/L Anion Gap (10-20) BUN (9-20) mg/dl Creatinine (0.8-1.5) mg/dl Est GFR ( Amer) Est GFR (Non-Af Amer) POC Glucose (mg/dL) 131 H 47 L 126 H (65-110) mg/dL Random Glucose (75-110) mg/dL Calcium (8.4-10.2) mg/dL Total Bilirubin (0.2-1.3) mg/dl AST (17-59) U/L ALT (21-72) U/L Alkaline Phosphatase (38-126) U/L Troponin I (0.00-0.120) ng/mL Total Protein (6.3-8.2) G/DL Albumin (3.5-5.0) g/dL Globulin (2.2-3.9) gm/dL Albumin/Globulin Ratio (1.0-2.1) 06/20/18 06/20/18 06/20/18 Range/Units 11:32 11:10 11:10 WBC 13.0 H D (4.8-10.8) K/uL RBC 3.21 L (4.40-5.90) Mil/uL Hgb 9.1 L (12.0-18.0) g/dL Hct 27.7 L (35.0-51.0) % MCV 86.3 (80.0-94.0) fl MCH 28.3 (27.0-31.0) pg MCHC 32.8 L (33.0-37.0) g/dL RDW 16.8 H (11.5-14.5) % Plt Count 51 L (130-400) K/uL MPV 12.3 H (7.2-11.7) fl Neut % (Auto) 75.2 H (50.0-75.0) % Lymph % (Auto) 15.1 L (20.0-40.0) % [place] % (Auto) 8.2 (0.0-10.0) % Eos % (Auto) 0.2 (0.0-4.0) % Baso % (Auto) 1.3 (0.0-2.0) % Neut # (Auto) 9.8 H (1.8-7.0) K/uL Lymph # (Auto) 2.0 (1.0-4.3) K/uL [place] # (Auto) 1.1 H (0.0-0.8) K/uL Eos # (Auto) 0.0 (0.0-0.7) K/uL Baso # (Auto) 0.2 (0.0-0.2) K/uL pCO2 26 L (35-45) mm/Hg pO2 168 H (80-100) mm/Hg HCO3 15.4 L (21-28) mmol/L ABG pH 7.30 L (7.35-7.45) ABG Total CO2 13.6 L (22-28) mmol/L ABG O2 Saturation 100.4 H (95-98) % ABG O2 Content 13.4 L (15-23) ML/dL ABG Base Excess -12.2 L (-2.0-3.0) mmol/L ABG Hemoglobin 9.5 L (11.7-17.4) g/dL ABG Carboxyhemoglobin 1.5 (0.5-1.5) % POC ABG HHb (Measured) -0.4 L (0.0-5.0) % ABG Methemoglobin 1.4 (0.0-3.0) % ABG O2 Capacity 13.3 L (16-24) mL/dL Abdirizak Test Yes A-a O2 Difference 113.0 mm/Hg Hgb O2 Saturation 97.5 (95.0-98.0) % Liter Flow 6 Vent Mode Nc Mechanical Rate FiO2 44.0 % Tidal Volume PEEP Blood Gas Comments Nc 6 lpm Crit Value Called To Dr kaitlynn stauffer Crit Value Called By Keri Crit Value Read Back Y Blood Gas Notified Time 1144 Sodium 131 L (132-148) mmol/l Potassium 7.2 H* D (3.6-5.0) MMOL/L Chloride 99 (98-107) mmol/L Carbon Dioxide 18 L (22-30) mmol/L Anion Gap 21 H (10-20) BUN 88 H (9-20) mg/dl Creatinine 4.6 H (0.8-1.5) mg/dl Est GFR ( Amer) 15 Est GFR (Non-Af Amer) 12 POC Glucose (mg/dL) (65-110) mg/dL Random Glucose 134 H (75-110) mg/dL Calcium 8.5 (8.4-10.2) mg/dL Total Bilirubin 0.7 (0.2-1.3) mg/dl AST 208 H D (17-59) U/L ALT 154 H D (21-72) U/L Alkaline Phosphatase 62 (38-126) U/L Troponin I 0.6940 H* (0.00-0.120) ng/mL Total Protein 8.3 H (6.3-8.2) G/DL Albumin 3.6 (3.5-5.0) g/dL Globulin 4.7 H (2.2-3.9) gm/dL Albumin/Globulin Ratio 0.8 L (1.0-2.1) Laboratory Results - last 24 hr 06/20/18 06/20/18 06/20/18 11:10 11:10 11:32 WBC 13.0 H D RBC 3.21 L Hgb 9.1 L Hct 27.7 L MCV 86.3 MCH 28.3 MCHC 32.8 L RDW 16.8 H Plt Count 51 L MPV 12.3 H Neut % (Auto) 75.2 H Lymph % (Auto) 15.1 L [place] % (Auto) 8.2 Eos % (Auto) 0.2 Baso % (Auto) 1.3 Neut # (Auto) 9.8 H Lymph # (Auto) 2.0 [place] # (Auto) 1.1 H Eos # (Auto) 0.0 Baso # (Auto) 0.2 pCO2 26 L pO2 168 H HCO3 15.4 L ABG pH 7.30 L ABG Total CO2 13.6 L ABG O2 Saturation 100.4 H ABG O2 Content 13.4 L ABG Base Excess -12.2 L ABG Hemoglobin 9.5 L ABG Carboxyhemoglobin 1.5 POC ABG HHb (Measured) -0.4 L ABG Methemoglobin 1.4 ABG O2 Capacity 13.3 L Abdirizak Test Yes A-a O2 Difference 113.0 Hgb O2 Saturation 97.5 Liter Flow 6 Vent Mode Nc Mechanical Rate FiO2 44.0 Tidal Volume PEEP Blood Gas Comments Nc 6 lpm Crit Value Called To Dr kaitlynn stauffer Crit Value Called By Keri Crit Value Read Back Y Blood Gas Notified Time 1144 Sodium 131 L Potassium 7.2 H* D Chloride 99 Carbon Dioxide 18 L Anion Gap 21 H BUN 88 H Creatinine 4.6 H Est GFR ( Amer) 15 Est GFR (Non-Af Amer) 12 POC Glucose (mg/dL) Random Glucose 134 H Calcium 8.5 Total Bilirubin 0.7 AST 208 H D ALT 154 H D Alkaline Phosphatase 62 Troponin I 0.6940 H* Total Protein 8.3 H Albumin 3.6 Globulin 4.7 H Albumin/Globulin Ratio 0.8 L 06/20/18 06/20/18 06/20/18 11:55 13:56 14:54 WBC RBC Hgb Hct MCV MCH MCHC RDW Plt Count MPV Neut % (Auto) Lymph % (Auto) [place] % (Auto) Eos % (Auto) Baso % (Auto) Neut # (Auto) Lymph # (Auto) [place] # (Auto) Eos # (Auto) Baso # (Auto) pCO2 pO2 HCO3 ABG pH ABG Total CO2 ABG O2 Saturation ABG O2 Content ABG Base Excess ABG Hemoglobin ABG Carboxyhemoglobin POC ABG HHb (Measured) ABG Methemoglobin ABG O2 Capacity Abdirizak Test A-a O2 Difference Hgb O2 Saturation Liter Flow Vent Mode Mechanical Rate FiO2 Tidal Volume PEEP Blood Gas Comments Crit Value Called To Crit Value Called By Crit Value Read Back Blood Gas Notified Time Sodium Potassium Chloride Carbon Dioxide Anion Gap BUN Creatinine Est GFR ( Amer) Est GFR (Non-Af Amer) POC Glucose (mg/dL) 126 H 47 L 131 H Random Glucose Calcium Total Bilirubin AST ALT Alkaline Phosphatase Troponin I Total Protein Albumin Globulin Albumin/Globulin Ratio 06/20/18 06/20/18 06/20/18 15:56 18:22 18:53 WBC RBC Hgb Hct MCV MCH MCHC RDW Plt Count MPV Neut % (Auto) Lymph % (Auto) [place] % (Auto) Eos % (Auto) Baso % (Auto) Neut # (Auto) Lymph # (Auto) [place] # (Auto) Eos # (Auto) Baso # (Auto) pCO2 38 pO2 322 H HCO3 30.8 H ABG pH 7.52 H ABG Total CO2 32.2 H ABG O2 Saturation 100.7 H ABG O2 Content 11.7 L ABG Base Excess 7.5 H ABG Hemoglobin 7.8 L ABG Carboxyhemoglobin 0.9 POC ABG HHb (Measured) -0.7 L ABG Methemoglobin 1.2 ABG O2 Capacity 11.6 L Abdirizak Test Yes A-a O2 Difference 58.0 Hgb O2 Saturation 98.6 H Liter Flow Vent Mode Prvc/c Mechanical Rate 12 FiO2 60.0 Tidal Volume 500 PEEP 5 Blood Gas Comments Crit Value Called To Crit Value Called By Crit Value Read Back Blood Gas Notified Time Sodium 133 136 Potassium 5.7 H 3.8 Chloride 100 99 Carbon Dioxide 24 33 H Anion Gap 15 8 L BUN 86 H 32 H Creatinine 4.3 H 1.8 H Est GFR ( Amer) 16 45 Est GFR (Non-Af Amer) 13 37 POC Glucose (mg/dL) Random Glucose 118 H 147 H Calcium 9.2 8.2 L Total Bilirubin AST ALT Alkaline Phosphatase Troponin I Total Protein Albumin Globulin Albumin/Globulin Ratio 06/21/18 06/21/18 06/21/18 04:20 04:20 04:24 WBC 3.9 L D RBC 2.60 L Hgb 7.6 L Hct 22.0 L MCV 84.7 MCH 29.3 MCHC 34.6 RDW 16.0 H Plt Count 26 L* D MPV Neut % (Auto) Lymph % (Auto) [place] % (Auto) Eos % (Auto) Baso % (Auto) Neut # (Auto) Lymph # (Auto) [place] # (Auto) Eos # (Auto) Baso # (Auto) pCO2 40 pO2 170 H HCO3 36.1 H ABG pH 7.58 H ABG Total CO2 38.7 H ABG O2 Saturation 100.9 H ABG O2 Content 10.9 L ABG Base Excess 14.3 H ABG Hemoglobin 7.6 L ABG Carboxyhemoglobin 1.6 H POC ABG HHb (Measured) -0.9 L ABG Methemoglobin 1.4 ABG O2 Capacity 10.8 L Abdirizak Test Yes A-a O2 Difference 65.0 Hgb O2 Saturation 97.9 Liter Flow Vent Mode Prvc ac Mechanical Rate 12 FiO2 40.0 Tidal Volume 500 PEEP 5 Blood Gas Comments Crit Value Called To Crit Value Called By Crit Value Read Back Blood Gas Notified Time Sodium 134 Potassium 4.4 Chloride 92 L Carbon Dioxide 37 H Anion Gap 9 L BUN 47 H Creatinine 2.7 H Est GFR ( Amer) 28 Est GFR (Non-Af Amer) 23 POC Glucose (mg/dL) Random Glucose 158 H Calcium 7.9 L Total Bilirubin AST ALT Alkaline Phosphatase Troponin I Total Protein Albumin Globulin Albumin/Globulin Ratio Critical Care Progress Note - Ventilator Checklist Head of Bed 30 Degrees: Yes Daily Sedation Vacation: Yes Daily Assessment of Readiness to Wean: Yes Daily Spontaneous Breathing Trial: Yes PUD Prophalyxis: Yes DVT Prophylaxis: Yes Oral Care with Chlorhexidine Gluconate {CHG}: Yes - Extremities/Vascular Does the Patient have a Central Venous Catheter?: Yes Does the Patient need a Central Venous Catheter?: Yes Does the Patient have a Rosas Catheter?: Yes Does the Patient need a Rosas Catheter?: Yes - Nutrition Nutrition: Nutrition Category Date Time Status NPO Diet [DIET] Diets 06/21/18 Breakfast Active Assessment/Plan (1) Acute respiratory failure with hypoxia Current Visit: Yes Status: Acute Priority: High Comment: Vent weaning in progress Daily CAT/SBT IV antibiotics IV Methylprednisolone to 40 mg IVPB Q12H Continue nebulizer treatment Continue diuretics Another HD todat to obtimize fluid status (2) COPD exacerbation Current Visit: Yes Status: Acute Priority: High Comment: IV Methylprednisolone to 40 mg IVPB Q12H Continue nebulizer treatment Continue diuretics (3) Pneumonia Current Visit: Yes Status: Acute Priority: High Comment: CXR reviewed; small left perihilar and Bibasilar infiltrate Will send 2 sets of blood culturesd and Start IV Antibiotics with IV Vancomycin (post HD) and Piperacillin Sod/Tazobactam (4) Myelodysplasia (myelodysplastic syndrome) Current Visit: Yes Status: Chronic Priority: High (5) ACS (acute coronary syndrome) Current Visit: Yes Status: Acute Priority: Medium Comment: EKG done showed no acute changes, evaluated by cardiology. (6) Renal failure (ARF), acute on chronic Current Visit: No Status: Acute Comment: - Stage 4 - Started on HD - IV Lasix given - f/u repeat bun/cr (7) Prophylactic measure Current Visit: No Status: Acute Comment: # Stress Ulcer prophylaxis Protonix 40 mg IVP QD # DVT prophylaxis with SCD, AC contraindicated due to Low platelets count of 26 - Assessment and Plan (Free Text) Assessment: # HOB maintained at 30 degrees. Encouraged use of IS # GI/DVT PPX # Stress Ulcer prophylaxis Protonix 40 mg IVP QD # DVT prophylaxis with SCD, AC contraindicated due to Low platelets count of 26 # Code Status: Full code Will start tube feeding via OG tube with [facility] Total critical care time 48 minutes
[2018-06-21 08:23] LABS: HEMOGLOBIN 7.3 g/dL (12.0-18.0); MEAN CELL VOLUME 83.6 fl (80.0-94.0); MEAN CORPUSCULAR HEMOGLOBIN 28.7 pg (27.0-31.0); MEAN CORPUSCULAR HGB CONC 34.4 g/dL (33.0-37.0); RBC 2.54 Mil/uL (4.40-5.90); RED CELL DISTRIBUTION WIDTH 16.2 % (11.5-14.5); WHITE BLOOD COUNT 3.8 K/uL (4.8-10.8)
--- NOTE | 2018-06-21 09:31 | RAD ---
Date of service: 06/21/2018 PROCEDURE: CHEST RADIOGRAPH, 1 VIEW HISTORY: pt intubated, daily verification of ETT and OGT COMPARISON: Portable chest 06/20/2018. FINDINGS: LUNGS: Endotracheal tube has been adjusted to terminate at the distal trachea in the interval. Nasogastric tube does not appear significantly changed in position. Patchy left perihilar infiltrate unchanged with minimal patchy density left base noted. Borderline medial right basilar patchy opacity. PLEURA: No pneumothorax or pleural fluid seen. CARDIOVASCULAR: Cardiac silhouette appears stable. No pulmonary vascular congestion. OSSEOUS STRUCTURES: No significant abnormalities. VISUALIZED UPPER ABDOMEN: Normal. OTHER FINDINGS: None. IMPRESSION: Stable left perihilar and limited basilar patchy infiltrate, borderline at the medial right base. ET tube in good apparent position.
--- NOTE | 2018-06-21 09:33 | RAD ---
Date of service: 06/20/2018 PROCEDURE: CHEST RADIOGRAPH, 1 VIEW HISTORY: confirm OGT placement COMPARISON: Portable chest 06/20/2018, 12:56 p.m.. FINDINGS: LUNGS: Endotracheal tube adjusted terminating in lower trachea 3 cm above the jorge luis. Nasogastric tube identified placed terminating at the right upper quadrant abdomen. Patchy density is developing at the left perihilar and medial basilar regions with the right lung grossly clear. PLEURA: No pneumothorax or pleural fluid seen. CARDIOVASCULAR: Stable cardiomediastinal silhouette. No pulmonary vascular congestion. OSSEOUS STRUCTURES: No significant abnormalities. VISUALIZED UPPER ABDOMEN: Normal. OTHER FINDINGS: None. IMPRESSION: Adequate interval nasogastric tube deployment and ETT adjustment. Subtle developing patchy infiltrates are noted at the left perihilar and medial basilar regions. Continued clinical and radiographic monitor advised.
[2018-06-21] MEDS: Propofol 10 mg/ml 1,000 MG/100 ML VIAL IV SCH ×4 (09:36→22:46)
[2018-06-21] MEDS: MethylPREDNISolone 40 mg Vial IVP SCH ×2 (09:39→22:52)
--- NOTE | 2018-06-21 10:38 | CP.PCM.PN ---
Subjective - Date & Time of Evaluation Date of Evaluation: 06/21/18 Time of Evaluation: 10:37 - Subjective Subjective: Pt seemed to be improving but yesterday he got very short of breath and hypoxic, was intubated. His renal function rapidly deteriorated as well. and he was given 1 dialysis yesterday. Today his CBC shows the WBC to be 3.8, hgb 7.3gms I will transfuse him 2 units of packed cells today and platelets were 26K. Objective - Vital Signs/Intake and Output Vital Signs (last 24 hours): Temp Pulse Resp BP Pulse Ox 98.3 F 80 14 141/65 100 06/21/18 04:00 06/21/18 09:38 06/21/18 06:00 06/21/18 09:47 06/21/18 06:00 Intake and Output: 06/21/18 06/21/18 06:59 18:59 Intake Total 1900 20 Balance 1900 20 - Medications Medications: Current Medications Acetaminophen (Tylenol 325mg Tab) 650 mg PO Q6 PRN PRN Reason: Headache Last Admin: 06/20/18 01:26 Dose: 650 mg Aspirin (Aspirin Chewable) 81 mg PO DAILY [facility] Last Admin: 06/20/18 09:10 Dose: 81 mg Furosemide (Lasix) 40 mg IVP BID [facility] Last Admin: 06/21/18 09:47 Dose: 40 mg Guaifenesin (Robitussin) 100 mg PO Q4 PRN PRN Reason: Cough Last Admin: 06/20/18 23:55 Dose: 100 mg Sodium Bicarbonate 150 meq/ (Dextrose) 1,150 mls @ 200 mls/hr IV .Q5H45M [facility] Stop: 06/21/18 12:14 Last Admin: 06/21/18 08:00 Dose: 200 mls/hr Propofol (Diprivan) 1,000 mg in 100 mls @ 2.313 mls/hr IV .Q24H [facility]; Protocol Stop: 06/21/18 13:01 Last Admin: 06/21/18 09:36 Dose: 25 mcg/kg/min, 11.567 mls/hr Ipratropium [place] (Atrovent) 0.5 mg IH RQ4 [facility] Last Admin: 06/21/18 07:48 Dose: 0.5 mg Levalbuterol HCl (Xopenex) 1.25 mg INH RQ2 PRN PRN Reason: Shortness of Breath Last Admin: 06/20/18 10:03 Dose: 1.25 mg Levalbuterol HCl (Xopenex) 1.25 mg INH RQ4 [facility] Last Admin: 06/21/18 07:48 Dose: 1.25 mg Methylprednisolone (Solu-Medrol) 40 mg IVP Q12 [facility] Last Admin: 06/21/18 09:39 Dose: 40 mg Metoprolol Tartrate (Lopressor) 50 mg PO Q12 [facility] Last Admin: 06/21/18 09:38 Dose: 50 mg Ondansetron HCl (Zofran Inj) 4 mg IVP Q6 PRN PRN Reason: Nausea/Vomiting Last Admin: 06/20/18 01:57 Dose: 4 mg Zolpidem Tartrate (Ambien) 10 mg PO HS [facility] Last Admin: 06/20/18 21:30 Dose: Not Given - Labs Labs: 06/21/18 07:30 06/21/18 04:20 PT 14.4 Seconds (9.8-13.1) H 06/18/18 12:50 INR 1.3 06/18/18 12:50
[2018-06-21 12:19] LABS: HEPATITIS B SURFACE AG Negative (NEGATIVE)
[2018-06-21 12:24] LABS: HEPATITIS B CORE AB NEGATIVE (NEGATIVE)
--- NOTE | 2018-06-21 12:26 | US ---
Date of service: 06/21/2018 PROCEDURE: Bilateral lower extremity venous duplex Doppler. HISTORY: r/o dvt COMPARISON: None available. TECHNIQUE: Bilateral common femoral, superficial femoral, popliteal and posterior tibial veins were evaluated. Flow was assessed with color Doppler, compressibility, assessment of phasic flow and augmentation response. FINDINGS: COMMON FEMORAL VEIN: Right CFV: Unremarkable. Left CFV: Unremarkable. SUPERFICIAL FEMORAL VEIN: Right SFV: Unremarkable. Left SFV: Unremarkable. POPLITEAL VEIN: Right Popliteal: Unremarkable. Left Popliteal: Unremarkable. POSTERIOR TIBIAL VEIN: Right PTV: Unremarkable. Left PTV: Unremarkable. OTHER FINDINGS: None. IMPRESSION: No evidence of deep venous thrombosis.
[2018-06-21 12:36] LABS: HEPATITIS C ANTIBODY NEGATIVE (NEGATIVE)
--- NOTE | 2018-06-21 18:11 | CARD ---
APPROVED REPORT Date of service: 06/21/2018 EXAM: Two-dimensional and M-mode echocardiogram with Doppler and color Doppler. Other Information Quality : GoodRhythm : NSR INDICATION Chest Pain Surgery/Intervention CABD DIMENSIONS IVSd1.01 (0.7-1.1cm)LVDd5.66 (3.9-5.9cm) LVOT Diameter2.48 (1.8-2.4cm)PWd0.81 (0.7-1.1cm) IVSs0.85 (0.8-1.2cm)LVDs5.37 (2.5-4.0cm) FS (%) 5.1 %PWs1.20 (0.8-1.2cm) M-Mode DIMENSIONS Left Atrium (MM)4.00 (2.5-4.0cm)IVSd0.81 (0.7-1.1cm) Aortic Root3.66 (2.2-3.7cm)LVDd6.97 (4.0-5.6cm) Aortic Cusp Exc.1.63 (1.5-2.0cm)PWd0.91 (0.7-1.1cm) IVSs1.13 cmFS (%) 3 % LVDs6.75 (2.0-3.8cm)PWs1.03 cm Aortic Valve AoV Peak Hulxzzgd528.8cm/sAoV VTI23.5cmAO Peak GR.6mmHg LVOT Peak Meqzwqoc74.7cm/sLVOT VTI14.80cmAO Mean GR.3mmHg PORFIRIO (VMAX)1.53ad0VQT (VTI)1.92ye0PO P 1/2 Grpa658fu Mitral Valve MV E Ofnklpem46.5cm/sMV DECEL [id number] A Fciwqfqb55.1cm/s MV MCH56jmI/A ratio2.2MVA (PHT)4.16cm2 TDI Lateral E' Peak V8.07cm/sMedial E' Peak V5.21cm/sE/Lateral E'12.3 E/Medial E'19.1 Tricuspid Valve TR Peak Lclglrwa675by/sRAP ILGKUIEI31qbAwBK Peak Gr.36mmHg [id number] LEFT VENTRICLE The left ventricle is normal size. There is normal left ventricular wall thickness. The systolic function is severely impaired. The estimated ejection fraction is 25-30% No regional wall motion abnormalities noted.. Transmitral Doppler flow pattern is Grade II-pseudonormal filling dynamics. No left ventricle thrombus noted on this study. There is no ventricular septal defect visualized. There is no left ventricular aneurysm. There is no mass noted in the left ventricle. RIGHT VENTRICLE The right ventricle is normal size. There is normal right ventricular wall thickness. The right ventricular systolic function is normal. ATRIA The left atrium is mildly dilated. The right atrium size is normal. The interatrial septum is intact with no evidence for an atrial septal defect. AORTIC VALVE The aortic valve is normal in structure. Mild to moderate aortic regurgitation is present. There is no aortic valvular stenosis. There is no aortic valvular vegetation. MITRAL VALVE The mitral valve is normal in structure. There is no evidence of mitral valve prolapse. There is no mitral valve stenosis. There is moderate to severe mitral valve regurgitation. TRICUSPID VALVE The tricuspid valve is normal in structure. There is mild tricuspid valve regurgitation noted. RVSP is calculated at 45 mm Hg. There is no tricuspid valve prolapse or vegetation. There is no tricuspid valve stenosis. PULMONIC VALVE The pulmonary valve is normal in structure. There is no pulmonic valvular regurgitation. There is no pulmonic valvular stenosis. GREAT VESSELS The aortic root is normal in size. The ascending aorta is normal in size. The pulmonary artery is normal. The IVC is normal in size and collapses >50% with inspiration. PERICARDIAL EFFUSION There is no pericardial effusion. There is no pleural effusion. <Conclusion> The systolic function is severely impaired. The estimated ejection fraction is 25-30% Transmitral Doppler flow pattern is Grade II-pseudonormal filling dynamics. The left atrium is mildly dilated. Mild to moderate aortic regurgitation is present. There is moderate to severe mitral valve regurgitation. There is mild tricuspid valve regurgitation noted. RVSP is calculated at 45 mm Hg.
--- NOTE | 2018-06-21 18:53 | CP.PCM.PN ---
Subjective - Date & Time of Evaluation Date of Evaluation: 06/21/18 Time of Evaluation: 18:53 - Subjective Subjective: Mr. Farmer is 78 yo wm with pmh/o MDS, cad, s/p CABG about 15 yrs ago, hypothyroidism, CHF, COPD was admitted to [facility] for about 2 months as per pt's family. who discharged about 2 weks ago was presented to ER on with cc/o severe cough, sob, cough associated with yellow sputum for few days. 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 renal consult is requested for worsening renal function since admission, pt was in resp. distress and intubated on 06/20/2018, pt also developed met. acidosis, res p.acidosis and severe hyperkalemia, s/p rt FV catheter placement by icu attending, pt remains intubated s/p hd last night, K+ is corrected, for another hd this evening and transfusion of 2 units prbc Objective - Vital Signs/Intake and Output Vital Signs (last 24 hours): Temp Pulse Resp BP Pulse Ox 98.0 F 79 12 146/90 0 L 06/21/18 16:00 06/21/18 17:00 06/21/18 17:00 06/21/18 17:00 06/21/18 17:00 Intake and Output: 06/21/18 06/21/18 06:59 18:59 Intake Total 1900 2254 Balance 1900 2254 - Medications Medications: Current Medications Acetaminophen (Tylenol 325mg Tab) 650 mg PO Q6 PRN PRN Reason: Headache Last Admin: 06/20/18 01:26 Dose: 650 mg Aspirin (Aspirin Chewable) 81 mg PO DAILY [facility] Last Admin: 06/21/18 16:36 Dose: Not Given Furosemide (Lasix) 40 mg IVP BID [facility] Last Admin: 06/21/18 16:40 Dose: 40 mg Guaifenesin (Robitussin) 100 mg PO Q4 PRN PRN Reason: Cough Last Admin: 06/20/18 23:55 Dose: 100 mg Piperacillin Sod/Tazobactam (Sod 2.25 gm/ Sodium Chloride) 100 mls @ 100 mls/hr IVPB Q6 [facility]; Protocol Propofol (Diprivan) 1,000 mg in 100 mls @ 13.88 mls/hr IV .Q7H13M [facility]; Protocol Stop: 06/22/18 17:23 Last Admin: 06/21/18 17:00 Dose: 30 mcg/kg/min, 13.88 mls/hr Ipratropium [place] (Atrovent) 0.5 mg IH RQ4 [facility] Last Admin: 06/21/18 15:13 Dose: 0.5 mg Levalbuterol HCl (Xopenex) 1.25 mg INH RQ2 PRN PRN Reason: Shortness of Breath Last Admin: 06/20/18 10:03 Dose: 1.25 mg Levalbuterol HCl (Xopenex) 1.25 mg INH RQ4 [facility] Last Admin: 06/21/18 15:13 Dose: 1.25 mg Methylprednisolone (Solu-Medrol) 40 mg IVP Q12 [facility] Last Admin: 06/21/18 09:39 Dose: 40 mg Metoprolol Tartrate (Lopressor) 50 mg PO Q12 [facility] Last Admin: 06/21/18 09:38 Dose: 50 mg Ondansetron HCl (Zofran Inj) 4 mg IVP Q6 PRN PRN Reason: Nausea/Vomiting Last Admin: 06/20/18 01:57 Dose: 4 mg Pantoprazole Sodium (Protonix Inj) 40 mg IVP DAILY [facility] Last Admin: 06/21/18 16:37 Dose: 40 mg - Labs Labs: 06/21/18 07:30 06/21/18 04:20 PT 14.4 Seconds (9.8-13.1) H 06/18/18 12:50 INR 1.3 06/18/18 12:50 - Constitutional Appears: Well, Non-toxic - Head Exam Head Exam: ATRAUMATIC, NORMAL INSPECTION, NORMOCEPHALIC - Eye Exam Eye Exam: EOMI, Normal appearance, PERRL Pupil Exam: NORMAL ACCOMODATION - ENT Exam ENT Exam: Mucous Membranes Moist - Neck Exam Neck Exam: Full ROM - Respiratory Exam Respiratory Exam: Clear to Ausculation Bilateral, NORMAL BREATHING PATTERN - Cardiovascular Exam Cardiovascular Exam: REGULAR RHYTHM, +S1, +S2 - GI/Abdominal Exam GI & Abdominal Exam: Soft, Normal Bowel Sounds - Neurological Exam Additional comments: pt is under sedation, on ventilator - Skin Skin Exam: Normal Color, Warm Assessment and Plan - Assessment and Plan (Free Text) Assessment: Mr. Farmer is 78 yo wm with pmh/o MDS, cad, s/p CABG about 15 yrs ago, hypothyroidism, CHF, COPD was admitted to [facility] for about 2 months as per pt's family. who discharged about 2 weks ago was presedted to ER on with cc/o severe cough, sob, cough [id number] yellow sputum for few days. s/p intubation with worsening renal function , hyperkalemia 1. ROSE on ckd-4 2. s/p Hyperkalemia 3. Acute resp. failure 4. s/p intubation 5. Acute exaccerbation of COPD 6. MDS 7. Anemia 8. Thrombocytopenia s/p Rt fv catheter placement, s/p hd last night pt is being dialyzed again this evening hep. b, c serology is wnl c/w vent support pt is scheduled to receive 2 units PRBC during HD d/w ICU attending in rounds
--- NOTE | 2018-06-21 20:37 | CP.PCM.PN ---
Subjective - Date & Time of Evaluation Date of Evaluation: 06/21/18 Time of Evaluation: 16:30 - Subjective Subjective: patient remains intubated. s/p HD. Improvement in K. sedated Objective - Vital Signs/Intake and Output Vital Signs (last 24 hours): Temp Pulse Resp BP Pulse Ox 97.3 F L 75 17 118/60 100 06/21/18 20:04 06/21/18 20:04 06/21/18 20:04 06/21/18 20:04 06/21/18 18:00 Intake and Output: 06/21/18 06/22/18 18:59 06:59 Intake Total 2702 0 Output Total 300 Balance 2402 0 - Medications Medications: Current Medications Acetaminophen (Tylenol 325mg Tab) 650 mg PO Q6 PRN PRN Reason: Headache Last Admin: 06/20/18 01:26 Dose: 650 mg Aspirin (Aspirin Chewable) 81 mg PO DAILY [facility] Last Admin: 06/21/18 16:36 Dose: Not Given Furosemide (Lasix) 40 mg IVP BID [facility] Last Admin: 06/21/18 16:40 Dose: 40 mg Guaifenesin (Robitussin) 100 mg PO Q4 PRN PRN Reason: Cough Last Admin: 06/20/18 23:55 Dose: 100 mg Piperacillin Sod/Tazobactam (Sod 2.25 gm/ Sodium Chloride) 100 mls @ 100 mls/hr IVPB Q6 [facility]; Protocol Propofol (Diprivan) 1,000 mg in 100 mls @ 13.88 mls/hr IV .Q7H13M [facility]; Protocol Stop: 06/22/18 17:23 Last Admin: 06/21/18 17:00 Dose: 30 mcg/kg/min, 13.88 mls/hr Ipratropium [place] (Atrovent) 0.5 mg IH RQ4 [facility] Last Admin: 06/21/18 19:35 Dose: 0.5 mg Levalbuterol HCl (Xopenex) 1.25 mg INH RQ2 PRN PRN Reason: Shortness of Breath Last Admin: 06/20/18 10:03 Dose: 1.25 mg Levalbuterol HCl (Xopenex) 1.25 mg INH RQ4 [facility] Last Admin: 06/21/18 19:35 Dose: 1.25 mg Methylprednisolone (Solu-Medrol) 40 mg IVP Q12 [facility] Last Admin: 06/21/18 09:39 Dose: 40 mg Metoprolol Tartrate (Lopressor) 50 mg PO Q12 [facility] Last Admin: 06/21/18 09:38 Dose: 50 mg Ondansetron HCl (Zofran Inj) 4 mg IVP Q6 PRN PRN Reason: Nausea/Vomiting Last Admin: 06/20/18 01:57 Dose: 4 mg Pantoprazole Sodium (Protonix Inj) 40 mg IVP DAILY [facility] Last Admin: 06/21/18 16:37 Dose: 40 mg - Labs Labs: 06/21/18 07:30 06/21/18 04:20 PT 14.4 Seconds (9.8-13.1) H 06/18/18 12:50 INR 1.3 06/18/18 12:50 - Constitutional Appears: Toxic - Head Exam Head Exam: NORMAL INSPECTION - Eye Exam Eye Exam: Normal appearance - ENT Exam ENT Exam: Mucous Membranes Moist - Neck Exam Neck Exam: Full ROM - Respiratory Exam Respiratory Exam: Decreased Breath Sounds - Cardiovascular Exam Cardiovascular Exam: REGULAR RHYTHM - GI/Abdominal Exam GI & Abdominal Exam: Normal Bowel Sounds - Rectal Exam Rectal Exam: Deferred - Extremities Exam Extremities Exam: absent: Pedal Edema - Back Exam Back Exam: NORMAL INSPECTION - Skin Skin Exam: Normal Color Assessment and Plan (1) CAD (coronary artery disease) Assessment & Plan: will treate cosnervatively. no active angina Status: Chronic (2) CHF (congestive heart failure) Assessment & Plan: likely acute daistolic dsyfunction and volume overlaod due to renal failure. improved with dialysis Status: Chronic (3) Chronic kidney disease (CKD) Assessment & Plan: s/p HD Status: Chronic
--- NOTE | 2018-06-22 00:07 | CP.PCM.PN ---
Subjective - Date & Time of Evaluation Date of Evaluation: 06/20/18 Time of Evaluation: 11:00 - Subjective Subjective: Noted increasing creatinine and elevated potassium. Objective - Vital Signs/Intake and Output Vital Signs (last 24 hours): Temp Pulse Resp BP Pulse Ox 97.5 F L 83 17 135/70 100 06/21/18 21:50 06/21/18 22:53 06/21/18 21:50 06/21/18 22:53 06/21/18 19:00 Intake and Output: 06/21/18 06/22/18 18:59 06:59 Intake Total 2702 490 Output Total 300 Balance 2402 490 - Medications Medications: Current Medications Acetaminophen (Tylenol 325mg Tab) 650 mg PO Q6 PRN PRN Reason: Headache Last Admin: 06/20/18 01:26 Dose: 650 mg Aspirin (Aspirin Chewable) 81 mg PO DAILY [facility] Last Admin: 06/21/18 16:36 Dose: Not Given Furosemide (Lasix) 40 mg IVP BID [facility] Last Admin: 06/21/18 16:40 Dose: 40 mg Guaifenesin (Robitussin) 100 mg PO Q4 PRN PRN Reason: Cough Last Admin: 06/20/18 23:55 Dose: 100 mg Piperacillin Sod/Tazobactam (Sod 2.25 gm/ Sodium Chloride) 100 mls @ 100 mls/hr IVPB Q6 [facility]; Protocol Last Admin: 06/21/18 22:49 Dose: 100 mls/hr Propofol (Diprivan) 1,000 mg in 100 mls @ 13.88 mls/hr IV .Q7H13M [facility]; Protocol Stop: 06/22/18 17:23 Last Admin: 06/21/18 22:46 Dose: 35 mcg/kg/min, 16.193 mls/hr Ipratropium [place] (Atrovent) 0.5 mg IH RQ4 [facility] Last Admin: 06/21/18 23:37 Dose: 0.5 mg Levalbuterol HCl (Xopenex) 1.25 mg INH RQ2 PRN PRN Reason: Shortness of Breath Last Admin: 06/20/18 10:03 Dose: 1.25 mg Levalbuterol HCl (Xopenex) 1.25 mg INH RQ4 [facility] Last Admin: 06/21/18 23:37 Dose: 1.25 mg Methylprednisolone (Solu-Medrol) 40 mg IVP Q12 [facility] Last Admin: 06/21/18 22:52 Dose: 40 mg Metoprolol Tartrate (Lopressor) 50 mg PO Q12 [facility] Last Admin: 06/21/18 22:53 Dose: 50 mg Ondansetron HCl (Zofran Inj) 4 mg IVP Q6 PRN PRN Reason: Nausea/Vomiting Last Admin: 06/20/18 01:57 Dose: 4 mg Pantoprazole Sodium (Protonix Inj) 40 mg IVP DAILY [facility] Last Admin: 06/21/18 16:37 Dose: 40 mg - Labs Labs: 06/21/18 07:30 06/21/18 04:20 PT 14.4 Seconds (9.8-13.1) H 06/18/18 12:50 INR 1.3 06/18/18 12:50
--- NOTE | 2018-06-22 00:08 | CP.PCM.PN ---
Subjective - Date & Time of Evaluation Date of Evaluation: 06/21/18 Time of Evaluation: 10:00 - Subjective Subjective: Still intubated. Noted very low hgb Objective - Vital Signs/Intake and Output Vital Signs (last 24 hours): Temp Pulse Resp BP Pulse Ox 97.5 F L 83 17 135/70 100 06/21/18 21:50 06/21/18 22:53 06/21/18 21:50 06/21/18 22:53 06/21/18 19:00 Intake and Output: 06/21/18 06/22/18 18:59 06:59 Intake Total 2702 490 Output Total 300 Balance 2402 490 - Medications Medications: Current Medications Acetaminophen (Tylenol 325mg Tab) 650 mg PO Q6 PRN PRN Reason: Headache Last Admin: 06/20/18 01:26 Dose: 650 mg Aspirin (Aspirin Chewable) 81 mg PO DAILY [facility] Last Admin: 06/21/18 16:36 Dose: Not Given Furosemide (Lasix) 40 mg IVP BID [facility] Last Admin: 06/21/18 16:40 Dose: 40 mg Guaifenesin (Robitussin) 100 mg PO Q4 PRN PRN Reason: Cough Last Admin: 06/20/18 23:55 Dose: 100 mg Piperacillin Sod/Tazobactam (Sod 2.25 gm/ Sodium Chloride) 100 mls @ 100 mls/hr IVPB Q6 [facility]; Protocol Last Admin: 06/21/18 22:49 Dose: 100 mls/hr Propofol (Diprivan) 1,000 mg in 100 mls @ 13.88 mls/hr IV .Q7H13M [facility]; Protocol Stop: 06/22/18 17:23 Last Admin: 06/21/18 22:46 Dose: 35 mcg/kg/min, 16.193 mls/hr Ipratropium [place] (Atrovent) 0.5 mg IH RQ4 [facility] Last Admin: 06/21/18 23:37 Dose: 0.5 mg Levalbuterol HCl (Xopenex) 1.25 mg INH RQ2 PRN PRN Reason: Shortness of Breath Last Admin: 06/20/18 10:03 Dose: 1.25 mg Levalbuterol HCl (Xopenex) 1.25 mg INH RQ4 [facility] Last Admin: 06/21/18 23:37 Dose: 1.25 mg Methylprednisolone (Solu-Medrol) 40 mg IVP Q12 [facility] Last Admin: 06/21/18 22:52 Dose: 40 mg Metoprolol Tartrate (Lopressor) 50 mg PO Q12 [facility] Last Admin: 06/21/18 22:53 Dose: 50 mg Ondansetron HCl (Zofran Inj) 4 mg IVP Q6 PRN PRN Reason: Nausea/Vomiting Last Admin: 06/20/18 01:57 Dose: 4 mg Pantoprazole Sodium (Protonix Inj) 40 mg IVP DAILY [facility] Last Admin: 06/21/18 16:37 Dose: 40 mg - Labs Labs: 06/21/18 07:30 06/21/18 04:20 PT 14.4 Seconds (9.8-13.1) H 06/18/18 12:50 INR 1.3 06/18/18 12:50
[2018-06-22 05:14] LABS: HEMOGLOBIN 10.1 g/dL (12.0-18.0); MEAN CELL VOLUME 87.5 fl (80.0-94.0); MEAN CORPUSCULAR HEMOGLOBIN 30.3 pg (27.0-31.0); MEAN CORPUSCULAR HGB CONC 34.7 g/dL (33.0-37.0); RBC 3.33 Mil/uL (4.40-5.90); WHITE BLOOD COUNT 5.2 K/uL (4.8-10.8)
[2018-06-22] MEDS: Levalbuterol 1.25 MG/3 ML Inhal Soln UD INH SCH ×5 (05:28→19:33)
[2018-06-22] MEDS: Ipratropium 0.02% Inhal Soln (0.5 mg/2.5 ml) UD IH SCH ×5 (05:28→19:33)
[2018-06-22 05:32] LABS: CALCIUM 7.7 mg/dL (8.4-10.2)
[2018-06-22] MEDS: Propofol 10 mg/ml 1,000 MG/100 ML VIAL IV SCH (05:44)
--- NOTE | 2018-06-22 08:37 | RAD ---
Date of service: 06/22/2018 HISTORY: ETT placement COMPARISON: Portable chest 06/21/2018. FINDINGS: LUNGS: Endotracheal and nasogastric tubes do not appear significantly changed in position. Proved aeration with diminishing airspace disease at the left perihilar and medial basilar regions trace residual patchy density identified at the medial right base. PLEURA: No pneumothorax bilaterally, no right pleural effusion. Trace of pleural effusion is suggested blunting the left costophrenic sulcus. CARDIOVASCULAR: Cardiomediastinal silhouette is stable. No pulmonary vascular derangement evident. OSSEOUS STRUCTURES: No significant abnormalities. VISUALIZED UPPER ABDOMEN: Sternotomy wires reiterated. OTHER FINDINGS: None. IMPRESSION: Improving left-sided airspace disease with trace residual at the medial right lung base. Minimal left pleural effusion identified.
[2018-06-22 08:51] LABS: ABG ALLEN TEST YES
[2018-06-22 09:03] LABS: ARTERIAL BLOOD GAS HCO3 31.8 mmol/L (21-28); ARTERIAL BLOOD GAS HEMOGLOBIN 10.3 g/dL (11.7-17.4); ARTERIAL BLOOD GAS O2 CAPACITY 14.5 mL/dL (16-24); ARTERIAL BLOOD GAS O2 CONTENT 14.5 ML/dL (15-23); ARTERIAL BLOOD GAS O2 SAT 99.8 % (95-98); ARTERIAL BLOOD GAS PCO2 42 mm/Hg (35-45); ARTERIAL BLOOD GAS PO2 171 mm/Hg (80-100); ARTERIAL BLOOD GAS TCO2 34.1 mmol/L (22-28)
[2018-06-22] MEDS: MethylPREDNISolone 40 mg Vial IVP SCH ×2 (09:20→23:35)
--- NOTE | 2018-06-22 09:25 | CP.PCM.PN ---
Subjective - Date & Time of Evaluation Date of Evaluation: 06/22/18 Time of Evaluation: 09:25 - Subjective Subjective: Mr. Farmer is 78 yo wm with pmh/o MDS, cad, s/p CABG about 15 yrs ago, hypothyroidism, CHF, COPD was admitted to [facility] for about 2 months as per pt's family. who discharged about 2 weks ago was presented to ER on with cc/o severe cough, sob, cough associated with yellow sputum for few days. 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 renal consult is requested for worsening renal function since admission, pt was in resp. distress and intubated on 06/20/2018, pt also developed met. acidosis, res p.acidosis and severe hyperkalemia, s/p rt FV catheter placement by icu attending. pt remains intubated s/p transfusion of 2 units prbc, pt is drowsy, arousable Objective - Vital Signs/Intake and Output Vital Signs (last 24 hours): Temp Pulse Resp BP Pulse Ox 96.9 F L 80 17 135/75 100 06/22/18 08:00 06/22/18 09:19 06/22/18 08:00 06/22/18 09:23 06/22/18 08:00 Intake and Output: 06/22/18 06/22/18 06:59 18:59 Intake Total 1320 96 Output Total 450 Balance 870 96 - Medications Medications: Current Medications Acetaminophen (Tylenol 325mg Tab) 650 mg PO Q6 PRN PRN Reason: Headache Last Admin: 06/20/18 01:26 Dose: 650 mg Aspirin (Aspirin Chewable) 81 mg PO DAILY [facility] Last Admin: 06/22/18 09:19 Dose: Not Given Furosemide (Lasix) 40 mg IVP BID [facility] Last Admin: 06/22/18 09:23 Dose: 40 mg Guaifenesin (Robitussin) 100 mg PO Q4 PRN PRN Reason: Cough Last Admin: 06/20/18 23:55 Dose: 100 mg Piperacillin Sod/Tazobactam (Sod 2.25 gm/ Sodium Chloride) 100 mls @ 100 mls/hr IVPB Q6 [facility]; Protocol Last Admin: 06/22/18 09:21 Dose: 100 mls/hr Propofol (Diprivan) 1,000 mg in 100 mls @ 13.88 mls/hr IV .Q7H13M [facility]; Protocol Stop: 06/22/18 17:23 Last Admin: 06/22/18 05:44 Dose: 35 mcg/kg/min, 16.193 mls/hr Ipratropium [place] (Atrovent) 0.5 mg IH RQ4 [facility] Last Admin: 06/22/18 07:41 Dose: 0.5 mg Levalbuterol HCl (Xopenex) 1.25 mg INH RQ2 PRN PRN Reason: Shortness of Breath Last Admin: 06/20/18 10:03 Dose: 1.25 mg Levalbuterol HCl (Xopenex) 1.25 mg INH RQ4 [facility] Last Admin: 06/22/18 07:41 Dose: 1.25 mg Methylprednisolone (Solu-Medrol) 40 mg IVP Q12 [facility] Last Admin: 06/22/18 09:20 Dose: 40 mg Metoprolol Tartrate (Lopressor) 50 mg PO Q12 [facility] Last Admin: 06/22/18 09:19 Dose: 50 mg Ondansetron HCl (Zofran Inj) 4 mg IVP Q6 PRN PRN Reason: Nausea/Vomiting Last Admin: 06/20/18 01:57 Dose: 4 mg Pantoprazole Sodium (Protonix Inj) 40 mg IVP DAILY [facility] Last Admin: 06/22/18 09:20 Dose: 40 mg - Labs Labs: 06/22/18 04:20 06/22/18 04:20 PT 14.4 Seconds (9.8-13.1) H 06/18/18 12:50 INR 1.3 06/18/18 12:50 - Constitutional Appears: Well, No Acute Distress - Head Exam Head Exam: ATRAUMATIC, NORMAL INSPECTION, NORMOCEPHALIC - Eye Exam Eye Exam: EOMI, Normal appearance, PERRL Pupil Exam: NORMAL ACCOMODATION - Neck Exam Neck Exam: Full ROM, Normal Inspection - Respiratory Exam Respiratory Exam: Clear to Ausculation Bilateral, NORMAL BREATHING PATTERN - Cardiovascular Exam Cardiovascular Exam: REGULAR RHYTHM, +S1, +S2 - GI/Abdominal Exam GI & Abdominal Exam: Soft, Normal Bowel Sounds - Extremities Exam Additional comments: no edema - Neurological Exam Additional comments: on vent , under sedation - Skin Skin Exam: Normal Color, Warm Assessment and Plan - Assessment and Plan (Free Text) Assessment: Mr. Farmer is 78 yo wm with pmh/o MDS, cad, s/p CABG about 15 yrs ago, hypothyroidism, CHF, COPD was admitted to [facility] for about 2 months as per pt's family. who discharged about 2 weks ago was presedted to ER on with cc/o severe cough, sob, cough [id number] yellow sputum for few days. s/p intubation with worsening renal function , hyperkalemia 1. ROSE on ckd-4 2. s/p Hyperkalemia 3. Acute resp. failure 4. s/p intubation 5. Acute exaccerbation of COPD 6. MDS 7. Anemia 8. Thrombocytopenia s/p Rt fv catheter placement, s/p hd thursday and thursday c/w vent support s/p transfusion of 2 units PRBC during HD yesterday d/w ICU attending in rounds possible extubation today
--- NOTE | 2018-06-22 10:22 | CP.PCM.PN ---
Subjective - Date & Time of Evaluation Date of Evaluation: 06/22/18 Time of Evaluation: 10:20 - Subjective Subjective: Pt6 is more strable and is to be extubated today. The hgb increased to 10.2 and WBC is in the normal range. Will follow Objective - Vital Signs/Intake and Output Vital Signs (last 24 hours): Temp Pulse Resp BP Pulse Ox 96.9 F L 80 17 135/75 100 06/22/18 08:00 06/22/18 09:19 06/22/18 08:00 06/22/18 09:23 06/22/18 08:00 Intake and Output: 06/22/18 06/22/18 06:59 18:59 Intake Total 1320 96 Output Total 450 Balance 870 96 - Medications Medications: Current Medications Acetaminophen (Tylenol 325mg Tab) 650 mg PO Q6 PRN PRN Reason: Headache Last Admin: 06/20/18 01:26 Dose: 650 mg Aspirin (Aspirin Chewable) 81 mg PO DAILY [facility] Last Admin: 06/22/18 09:19 Dose: Not Given Furosemide (Lasix) 40 mg IVP BID [facility] Last Admin: 06/22/18 09:23 Dose: 40 mg Guaifenesin (Robitussin) 100 mg PO Q4 PRN PRN Reason: Cough Last Admin: 06/20/18 23:55 Dose: 100 mg Piperacillin Sod/Tazobactam (Sod 2.25 gm/ Sodium Chloride) 100 mls @ 100 mls/hr IVPB Q6 [facility]; Protocol Last Admin: 06/22/18 09:21 Dose: 100 mls/hr Propofol (Diprivan) 1,000 mg in 100 mls @ 13.88 mls/hr IV .Q7H13M [facility]; Protocol Stop: 06/22/18 17:23 Last Admin: 06/22/18 05:44 Dose: 35 mcg/kg/min, 16.193 mls/hr Ipratropium [place] (Atrovent) 0.5 mg IH RQ4 [facility] Last Admin: 06/22/18 07:41 Dose: 0.5 mg Levalbuterol HCl (Xopenex) 1.25 mg INH RQ2 PRN PRN Reason: Shortness of Breath Last Admin: 06/20/18 10:03 Dose: 1.25 mg Levalbuterol HCl (Xopenex) 1.25 mg INH RQ4 [facility] Last Admin: 06/22/18 07:41 Dose: 1.25 mg Methylprednisolone (Solu-Medrol) 40 mg IVP Q12 [facility] Last Admin: 06/22/18 09:20 Dose: 40 mg Metoprolol Tartrate (Lopressor) 50 mg PO Q12 [facility] Last Admin: 06/22/18 09:19 Dose: 50 mg Ondansetron HCl (Zofran Inj) 4 mg IVP Q6 PRN PRN Reason: Nausea/Vomiting Last Admin: 06/20/18 01:57 Dose: 4 mg Pantoprazole Sodium (Protonix Inj) 40 mg IVP DAILY [facility] Last Admin: 06/22/18 09:20 Dose: 40 mg - Labs Labs: 06/22/18 04:20 06/22/18 04:20 PT 14.4 Seconds (9.8-13.1) H 06/18/18 12:50 INR 1.3 06/18/18 12:50
--- NOTE | 2018-06-22 10:37 | CP.CCUPN ---
CCU Subjective - Physician Review Subjective (Free Text): 06/22/18 10:25 The patient was Seen and examined by me at the bedside during ICU round, Medical records reviewed and Management issues were discussed and formulated with the house staff. Events reviewed Mr Romeo is a 78 Years old Male with PMHx of HTN, CKD-4, Myelodysplastic Syndrome, CHF, Asthma and COPD Who initially presented to the Emergency department with Two days of worsening SOB with productive cough. Apparently he was admitted a few weeks ago and dx with pneumonia and discharged on antibiotics. On 06/20 morning he developed an episode of acute SOB and was very restless ad improved for the time being with bronchodilators, IV steroids and IV lasix but continue to be very anxious , resless and at time SOB, although Oxy sat remained > 95% all the time but was hyperventilating. ABG was done , which also showed K 7.4, and stat blood work also showed K 7.2, with no hemolysis , pt was also oliguric by new High K was treated with IV bicarb, D50, insulin and pt needed dialysis due to worsening renal failure, high K and worsening metabolic acidosis, probably was the reason for his acute AMS and being very restless and tachypnic. Patient was urgently intubated for being very tachypnic , confusing and airway protection as he vomited twice also. Consent for HD and dialysis cath insertion ws taken from patient's NOK, his neice and HD catheter was inserted HD to be started. Patient received 2 sessions of HD so far 2 sets of blood cultures was sent yesterday 06/21 Started on IV Antibiotics with IV Vancomycin (post HD) and Piperacillin Sod/Tazobactam 06/21 Also [facility] This morning, he is comfortable, Sedated and orally intubated, NAD Vent weaning in progress Afebrile, NSR on the monitor Last 24H I&O 4022/750 CXR reviewed; Improved pulmoonary edema, small stable left perihilar and Bibasilar infiltrate This morning labs revealed improved WBC H/H (Received 2U Packed RBC with HD yesterday ), improved renal function BUN/Cr 32/2.00 with resolved hyperkalemia, K of 4.3 Pt received a second HD session yesterday and was transfused 2U packed RBC with HD. CCU Objective - Vital Signs / Intake & Output Vital Signs (Last 4 hours): Vital Signs Temp Pulse Resp BP Pulse Ox 06/22/18 09:23 135/75 06/22/18 09:19 80 135/75 06/22/18 08:00 96.9 F L 77 17 132/73 100 06/22/18 07:00 80 14 124/59 L 100 Intake and Output (Last 8hrs): Intake & Output 06/21/18 06/22/18 06/22/18 22:59 06:59 14:59 Intake Total 1856 440 96 Output Total 300 450 Balance 1556 -10 96 Intake: IV 1000 100 4 Intake, Piggyback 406 32 Tube Feeding 105 240 60 Blood Product 325 Red Blood Cells Cp2d As3 325 Lr Unit [id number] Red Blood Cells Cpd As1 0 Lr Unit [id number] Free Water Flush 100 Other 20 Red Blood Cells Cp2d As3 10 Lr Unit [id number] Red Blood Cells Cpd As1 10 Lr Unit [id number] Output: Urine 300 450 Condom 300 450 - Physical Exam Head: Positive for: Atraumatic, Normocephalic Pupils: Positive for: PERRL, Sluggish Extroacular Muscles: Positive for: EOMI Conjunctiva: Positive for: Normal. Negative for: Injected, Icteric Ears: Positive for: Normal Mouth: Positive for: Moist Mucous Membranes Pharnyx: Positive for: Normal Nose (Internal): Positive for: Normal Inspection Neck: Positive for: Normal Range of Motion, Trachea Midline. Negative for: Meningeal Signs, MIDLINE TENDERNESS, Paraspinal Tenderness, JVD, Lymphadenopathy, Bruit, Other Respiratory/Chest: Positive for: Decreased Breath Sounds, Rales, Rhonchi. Negative for: Clear to Auscultation, Respiratory Distress, Accessory Muscle Use, Wheezes, Tachypneic, Tender to Palpation Cardiovascular: Positive for: Regular Rate and Rhythm, Normal S1, S2, Peripheal Pulses Present, Tachycardic. Negative for: Murmurs, Irregular Rhythm Abdomen: Positive for: Distention. Negative for: Tenderness, Peritoneal Signs - Medications Active Medications: Active Medications Generic Name Dose Route Start Last Admin Trade Name Freq PRN Reason Stop Dose Admin Acetaminophen 650 mg 06/19/18 21:47 06/20/18 01:26 Tylenol 325mg Tab PO 650 mg Q6 PRN Administration Headache Aspirin 81 mg 06/20/18 09:00 06/22/18 09:19 Aspirin Chewable PO Not Given DAILY [facility] Furosemide 40 mg 06/22/18 09:00 06/22/18 09:23 Lasix IVP 40 mg BID [facility] Administration Guaifenesin 100 mg 06/19/18 21:47 06/20/18 23:55 Robitussin PO 100 mg Q4 PRN Administration Cough Piperacillin Sod/Tazobactam 100 mls @ 100 mls/hr 06/21/18 16:00 06/22/18 09:21 Sod 2.25 gm/ Sodium Chloride IVPB 100 mls/hr Q6 [facility] Administration Protocol Propofol 1,000 mg in 100 mls @ 13.88 mls/hr 06/21/18 17:00 06/22/18 05:44 Diprivan IV 06/22/18 17:23 35 mcg/kg/min .Q7H13M [facility] 16.193 mls/hr Administration Protocol 30 MCG/KG/MIN Ipratropium [place] 0.5 mg 06/20/18 00:00 06/22/18 07:41 Atrovent IH 0.5 mg RQ4 [facility] Administration Levalbuterol HCl 1.25 mg 06/19/18 21:47 06/20/18 10:03 Xopenex INH 1.25 mg RQ2 PRN Administration Shortness of Breath Levalbuterol HCl 1.25 mg 06/20/18 00:00 06/22/18 07:41 Xopenex INH 1.25 mg RQ4 [facility] Administration Methylprednisolone 40 mg 06/20/18 21:00 06/22/18 09:20 Solu-Medrol IVP 40 mg Q12 [facility] Administration Metoprolol Tartrate 50 mg 06/19/18 22:00 06/22/18 09:19 Lopressor PO 50 mg Q12 [facility] Administration Ondansetron HCl 4 mg 06/20/18 01:16 06/20/18 01:57 Zofran Inj IVP 4 mg Q6 PRN Administration Nausea/Vomiting Pantoprazole Sodium 40 mg 06/21/18 14:15 06/22/18 09:20 Protonix Inj IVP 40 mg DAILY [facility] Administration - Patient Studies Lab Studies: Microbiology Studies 06/18/18 15:30 Blood Culture - Preliminary Blood-Venous NO GROWTH AFTER 3 DAYS 06/18/18 11:55 Blood Culture - Preliminary Blood-Venous NO GROWTH AFTER 3 DAYS Lab Studies 06/22/18 06/22/18 06/22/18 Range/Units 08:42 04:20 04:20 WBC 5.2 (4.8-10.8) K/uL RBC 3.33 L (4.40-5.90) Mil/uL Hgb 10.1 L D (12.0-18.0) g/dL Hct 29.2 L (35.0-51.0) % MCV 87.5 D (80.0-94.0) fl MCH 30.3 (27.0-31.0) pg MCHC 34.7 (33.0-37.0) g/dL RDW 16.0 H (11.5-14.5) % Plt Count 33 L (130-400) K/uL pCO2 42 (35-45) mm/Hg pO2 171 H (80-100) mm/Hg HCO3 31.8 H (21-28) mmol/L ABG pH 7.50 H (7.35-7.45) ABG Total CO2 34.1 H (22-28) mmol/L ABG O2 Saturation 99.8 H (95-98) % ABG O2 Content 14.5 L (15-23) ML/dL ABG Base Excess 8.8 H (-2.0-3.0) mmol/L ABG Hemoglobin 10.3 L (11.7-17.4) g/dL ABG Carboxyhemoglobin 1.2 (0.5-1.5) % POC ABG HHb (Measured) 0.2 (0.0-5.0) % ABG Methemoglobin 1.4 (0.0-3.0) % ABG O2 Capacity 14.5 L (16-24) mL/dL Abdirizak Test Yes A-a O2 Difference 62.0 mm/Hg Hgb O2 Saturation 97.2 (95.0-98.0) % Vent Mode A/c Mechanical Rate 12 FiO2 40.0 % Tidal Volume 500 PEEP 5 Sodium 134 (132-148) mmol/l Potassium 4.3 (3.6-5.0) MMOL/L Chloride 100 (98-107) mmol/L Carbon Dioxide 29 (22-30) mmol/L Anion Gap 9 L (10-20) BUN 32 H (9-20) mg/dl Creatinine 2.0 H (0.8-1.5) mg/dl Est GFR ( Amer) 40 Est GFR (Non-Af Amer) 33 Random Glucose 149 H (75-110) mg/dL Calcium 7.7 L (8.4-10.2) mg/dL Hep Bs Antigen (NEGATIVE) Hep B Core IgM Ab (NEGATIVE) Hepatitis C Antibody (NEGATIVE) Blood Type Antibody Screen Crossmatch BBK History Checked 06/21/18 06/20/18 Range/Units 10:10 15:56 WBC (4.8-10.8) K/uL RBC (4.40-5.90) Mil/uL Hgb (12.0-18.0) g/dL Hct (35.0-51.0) % MCV (80.0-94.0) fl MCH (27.0-31.0) pg MCHC (33.0-37.0) g/dL RDW (11.5-14.5) % Plt Count (130-400) K/uL pCO2 (35-45) mm/Hg pO2 (80-100) mm/Hg HCO3 (21-28) mmol/L ABG pH (7.35-7.45) ABG Total CO2 (22-28) mmol/L ABG O2 Saturation (95-98) % ABG O2 Content (15-23) ML/dL ABG Base Excess (-2.0-3.0) mmol/L ABG Hemoglobin (11.7-17.4) g/dL ABG Carboxyhemoglobin (0.5-1.5) % POC ABG HHb (Measured) (0.0-5.0) % ABG Methemoglobin (0.0-3.0) % ABG O2 Capacity (16-24) mL/dL Abdirizak Test A-a O2 Difference mm/Hg Hgb O2 Saturation (95.0-98.0) % Vent Mode Mechanical Rate FiO2 % Tidal Volume PEEP Sodium (132-148) mmol/l Potassium (3.6-5.0) MMOL/L Chloride (98-107) mmol/L Carbon Dioxide (22-30) mmol/L Anion Gap (10-20) BUN (9-20) mg/dl Creatinine (0.8-1.5) mg/dl Est GFR ( Amer) Est GFR (Non-Af Amer) Random Glucose (75-110) mg/dL Calcium (8.4-10.2) mg/dL Hep Bs Antigen Negative (NEGATIVE) Hep B Core IgM Ab Negative (NEGATIVE) Hepatitis C Antibody Negative (NEGATIVE) Blood Type O POSITIVE Antibody Screen Negative Crossmatch See Detail BBK History Checked Patient has bt Laboratory Results - last 24 hr 06/20/18 06/21/18 06/22/18 15:56 10:10 04:20 WBC 5.2 RBC 3.33 L Hgb 10.1 L D Hct 29.2 L MCV 87.5 D MCH 30.3 MCHC 34.7 RDW 16.0 H Plt Count 33 L pCO2 pO2 HCO3 ABG pH ABG Total CO2 ABG O2 Saturation ABG O2 Content ABG Base Excess ABG Hemoglobin ABG Carboxyhemoglobin POC ABG HHb (Measured) ABG Methemoglobin ABG O2 Capacity Abdirizak Test A-a O2 Difference Hgb O2 Saturation Vent Mode Mechanical Rate FiO2 Tidal Volume PEEP Sodium Potassium Chloride Carbon Dioxide Anion Gap BUN Creatinine Est GFR ( Amer) Est GFR (Non-Af Amer) Random Glucose Calcium Hep Bs Antigen Negative Hep B Core IgM Ab Negative Hepatitis C Antibody Negative Blood Type O POSITIVE Antibody Screen Negative Crossmatch See Detail BBK History Checked Patient has bt 06/22/18 06/22/18 04:20 08:42 WBC RBC Hgb Hct MCV MCH MCHC RDW Plt Count pCO2 42 pO2 171 H HCO3 31.8 H ABG pH 7.50 H ABG Total CO2 34.1 H ABG O2 Saturation 99.8 H ABG O2 Content 14.5 L ABG Base Excess 8.8 H ABG Hemoglobin 10.3 L ABG Carboxyhemoglobin 1.2 POC ABG HHb (Measured) 0.2 ABG Methemoglobin 1.4 ABG O2 Capacity 14.5 L Abdirizak Test Yes A-a O2 Difference 62.0 Hgb O2 Saturation 97.2 Vent Mode A/c Mechanical Rate 12 FiO2 40.0 Tidal Volume 500 PEEP 5 Sodium 134 Potassium 4.3 Chloride 100 Carbon Dioxide 29 Anion Gap 9 L BUN 32 H Creatinine 2.0 H Est GFR ( Amer) 40 Est GFR (Non-Af Amer) 33 Random Glucose 149 H Calcium 7.7 L Hep Bs Antigen Hep B Core IgM Ab Hepatitis C Antibody Blood Type Antibody Screen Crossmatch BBK History Checked Critical Care Progress Note - Ventilator Checklist Head of Bed 30 Degrees: Yes Daily Sedation Vacation: Yes Daily Assessment of Readiness to Wean: Yes Daily Spontaneous Breathing Trial: Yes PUD Prophalyxis: Yes DVT Prophylaxis: Yes Oral Care with Chlorhexidine Gluconate {CHG}: Yes - Extremities/Vascular Does the Patient have a Central Venous Catheter?: Yes Does the Patient need a Central Venous Catheter?: Yes Does the Patient have a Rosas Catheter?: Yes Does the Patient need a Rosas Catheter?: Yes - Nutrition Nutrition: Nutrition Category Date Time Status NPO Diet [DIET] Diets 06/21/18 Breakfast Active Assessment/Plan (1) Acute respiratory failure with hypoxia Current Visit: Yes Status: Acute Priority: High Comment: Vent weaning in progress, Discontinued the Propofol Daily CAT/SBT IV antibiotics IV Methylprednisolone to 40 mg IVPB Q12H Continue nebulizer treatment Continue diuretics and HD todat to obtimize fluid status Aggressive pulmonary toilet, chest PT, suctioning (2) COPD exacerbation Current Visit: Yes Status: Acute Priority: High Comment: IV Methylprednisolone to 40 mg IVPB Q12H Continue nebulizer treatment Aggressive pulmonary toilet, chest PT, suctioning (3) Pneumonia Current Visit: Yes Status: Acute Priority: High Comment: CXR reviewed; Improved pulmoonary edema, small left perihilar and Bibasilar infiltrate 2 sets of blood cultures was sent yesterday 06/21 Started on IV Antibiotics with IV Vancomycin (post HD) and Piperacillin Sod/Tazobactam (4) Myelodysplasia (myelodysplastic syndrome) Current Visit: Yes Status: Chronic Priority: High Comment: Transfused 2U packed RBC with HD yesterday Hem/Oncology consult appretiated (5) ACS (acute coronary syndrome) Current Visit: Yes Status: Acute Priority: Medium Comment: EKG done showed no acute changes, evaluated by cardiology. (6) Renal failure (ARF), acute on chronic Current Visit: Yes Status: Acute Priority: High Comment: - Stage 4 - Started on HD - IV Lasix given - f/u repeat bun/cr (7) Prophylactic measure Current Visit: Yes Status: Acute Priority: High Comment: # Stress Ulcer prophylaxis Protonix 40 mg IVP QD # DVT prophylaxis with SCD, AC contraindicated due to Low platelets count of 26
--- NOTE | 2018-06-22 11:56 | CP.PCM.PN ---
Subjective - Date & Time of Evaluation Date of Evaluation: 06/22/18 Time of Evaluation: 08:32 - Subjective Subjective: Patient seen and examined at bed side today, still intubated, but alert, able to follow commands Plan for extubate today Afebrile, denies chest pain, otherwise no complaints. Objective - Vital Signs/Intake and Output Vital Signs (last 24 hours): Temp Pulse Resp BP Pulse Ox 96.9 F L 90 18 154/91 H 100 06/22/18 08:00 06/22/18 11:00 06/22/18 11:00 06/22/18 11:00 06/22/18 11:00 Intake and Output: 06/22/18 06/22/18 06:59 18:59 Intake Total 1320 216 Output Total 450 Balance 870 216 - Medications Medications: Current Medications Acetaminophen (Tylenol 325mg Tab) 650 mg PO Q6 PRN PRN Reason: Headache Last Admin: 06/20/18 01:26 Dose: 650 mg Aspirin (Aspirin Chewable) 81 mg PO DAILY [facility] Last Admin: 06/22/18 09:19 Dose: Not Given Furosemide (Lasix) 40 mg IVP BID [facility] Last Admin: 06/22/18 09:23 Dose: 40 mg Guaifenesin (Robitussin) 100 mg PO Q4 PRN PRN Reason: Cough Last Admin: 06/20/18 23:55 Dose: 100 mg Piperacillin Sod/Tazobactam (Sod 2.25 gm/ Sodium Chloride) 100 mls @ 100 mls/hr IVPB Q6 [facility]; Protocol Last Admin: 06/22/18 09:21 Dose: 100 mls/hr Propofol (Diprivan) 1,000 mg in 100 mls @ 13.88 mls/hr IV .Q7H13M [facility]; Protocol Stop: 06/22/18 17:23 Last Admin: 06/22/18 05:44 Dose: 35 mcg/kg/min, 16.193 mls/hr Dexmedetomidine HCl 400 mcg/ (Sodium Chloride) 100 mls @ 3.86 mls/hr IV .Q24H ONE; Protocol Stop: 06/23/18 11:59 Ipratropium [place] (Atrovent) 0.5 mg IH RQ4 [facility] Last Admin: 06/22/18 07:41 Dose: 0.5 mg Levalbuterol HCl (Xopenex) 1.25 mg INH RQ2 PRN PRN Reason: Shortness of Breath Last Admin: 06/20/18 10:03 Dose: 1.25 mg Levalbuterol HCl (Xopenex) 1.25 mg INH RQ4 [facility] Last Admin: 06/22/18 07:41 Dose: 1.25 mg Methylprednisolone (Solu-Medrol) 40 mg IVP Q12 [facility] Last Admin: 06/22/18 09:20 Dose: 40 mg Metoprolol Tartrate (Lopressor) 50 mg PO Q12 [facility] Last Admin: 06/22/18 09:19 Dose: 50 mg Ondansetron HCl (Zofran Inj) 4 mg IVP Q6 PRN PRN Reason: Nausea/Vomiting Last Admin: 06/20/18 01:57 Dose: 4 mg Pantoprazole Sodium (Protonix Inj) 40 mg IVP DAILY [facility] Last Admin: 06/22/18 09:20 Dose: 40 mg - Labs Labs: 06/22/18 04:20 06/22/18 04:20 PT 14.4 Seconds (9.8-13.1) H 06/18/18 12:50 INR 1.3 06/18/18 12:50 - Constitutional Appears: No Acute Distress - Head Exam Head Exam: NORMAL INSPECTION - Eye Exam Eye Exam: EOMI, PERRL - Respiratory Exam Respiratory Exam: Clear to Ausculation Bilateral - Cardiovascular Exam Cardiovascular Exam: REGULAR RHYTHM, +S1, +S2 - GI/Abdominal Exam GI & Abdominal Exam: Soft. absent: Distended, Tenderness - Extremities Exam Extremities Exam: absent: Calf Tenderness - Neurological Exam Neurological Exam: Alert, Awake Assessment and Plan - Assessment and Plan (Free Text) Assessment: 78 Years old Male with PMHx of HTN, CKD-4, Myelodysplastic Syndrome, CHF, Asthma and COPD admitted due to worsening SOB with productive cough likely 2/2 to COPD exacerbation. Plan: - Plan for extubate today - MRSA positive - ID consulted, recommeds appreciated. - stable H/H - Continue plan as ordered Case discussed with Dr Howard
[2018-06-22] MEDS ORDERED: Dexmedetomidine Hydrochloride 400 MCG in Sodium Chloride 0.9% 96 ML IV ONE (12:00)
[2018-06-22 13:13] LABS: BASO % 0.4 % (0.0-2.0); EOS % 0.3 % (0.0-4.0); HEMOGLOBIN 10.1 g/dL (12.0-18.0); LYMPH # 0.5 K/uL (1.0-4.3); MEAN CELL VOLUME 87.8 fl (80.0-94.0); MEAN CORPUSCULAR HEMOGLOBIN 30.3 pg (27.0-31.0); MEAN CORPUSCULAR HGB CONC 34.5 g/dL (33.0-37.0); MEAN PLATELET VOLUME 11.2 fl (7.2-11.7); MONO # 0.1 K/uL (0.0-0.8); MONO % 1.3 % (0.0-10.0); NEUT # 4.8 K/uL (1.8-7.0); NRBC % 0.1 % (0.0-0.0); PLATELET COUNT 41 K/uL (130-400); RBC 3.32 Mil/uL (4.40-5.90); RED CELL DISTRIBUTION WIDTH 16.5 % (11.5-14.5); WHITE BLOOD COUNT 5.4 K/uL (4.8-10.8)
[2018-06-22 14:37] LABS: BANDS 1 % (0-2); LYMPHOCYTE 9 % (20-50); METAMYELOCYTE 1 % (0-0); MONOCYTE 4 % (0-10); MYELOCYTE 1 % (0-0); NEUTROPHIL 84 % (42-75); PLATELET ESTIMATE MARKEDLY DECREASED (NORMAL); TOTAL CELLS COUNTED 100
[2018-06-22 14:41] LABS: ANISOCYTOSIS SLIGHT; GIANT PLATELETS PRESENT; HYPOCHROMIC SLIGHT; LARGE PLATELETS PRESENT; OVALOCYTES SLIGHT
--- NOTE | 2018-06-22 14:41 | PCM.PROC ---
Procedures Attestation:: I certify that I have explained the specified Operation(s) or Procedure(s), risks, benefits and reasonable alternatives to the Patient and/or other person responsible. The opportunity was given to ask questions and all questions answered - Extubation Clinical Parameters: Resolution/Stabilization of disease process, Hemodynamically Stable, Intact Cough/Gag Reflex, Spontaneous Respirations, Acceptable Vent Settings (FIO2<50%, PEEP<8, PaO2>75, pH>7.25) Weaning Criteria Met: Yes General Weaning Approaches: Pressure Support Ventilation (PSV) Weaning Patient Condition: Patient has been successfully extubated and assessed Oxygen Therapy: O2 via Venti Mask Patient Tolerated Procedure: Well, No Complications
--- NOTE | 2018-06-22 21:21 | CP.PCM.PN ---
Subjective - Date & Time of Evaluation Date of Evaluation: 06/22/18 Time of Evaluation: 21:00 - Subjective Subjective: extubated. sleeping at present Objective - Vital Signs/Intake and Output Vital Signs (last 24 hours): Temp Pulse Resp BP Pulse Ox 97.5 F L 97 H 17 154/89 H 99 06/22/18 16:00 06/22/18 18:00 06/22/18 18:00 06/22/18 18:00 06/22/18 18:00 Intake and Output: 06/22/18 06/23/18 18:59 06:59 Intake Total 348 Output Total 800 Balance -452 - Medications Medications: Current Medications Acetaminophen (Tylenol 325mg Tab) 650 mg PO Q6 PRN PRN Reason: Headache Last Admin: 06/20/18 01:26 Dose: 650 mg Aspirin (Aspirin Chewable) 81 mg PO DAILY [facility] Last Admin: 06/22/18 09:19 Dose: Not Given Furosemide (Lasix) 40 mg IVP BID [facility] Last Admin: 06/22/18 16:40 Dose: 40 mg Guaifenesin (Robitussin) 100 mg PO Q4 PRN PRN Reason: Cough Last Admin: 06/20/18 23:55 Dose: 100 mg Piperacillin Sod/Tazobactam (Sod 2.25 gm/ Sodium Chloride) 100 mls @ 100 mls/hr IVPB Q6 [facility]; Protocol Last Admin: 06/22/18 16:44 Dose: 100 mls/hr Dexmedetomidine HCl 400 mcg/ (Sodium Chloride) 100 mls @ 3.86 mls/hr IV .Q24H ONE; Protocol Stop: 06/23/18 11:59 Last Titration: 06/22/18 17:20 Dose: 0.5 mcg/kg/hr, 9.64 mls/hr Ipratropium [place] (Atrovent) 0.5 mg IH RQ4 [facility] Last Admin: 06/22/18 19:33 Dose: 0.5 mg Levalbuterol HCl (Xopenex) 1.25 mg INH RQ2 PRN PRN Reason: Shortness of Breath Last Admin: 06/20/18 10:03 Dose: 1.25 mg Levalbuterol HCl (Xopenex) 1.25 mg INH RQ4 [facility] Last Admin: 06/22/18 19:33 Dose: 1.25 mg Methylprednisolone (Solu-Medrol) 40 mg IVP Q12 [facility] Last Admin: 06/22/18 09:20 Dose: 40 mg Metoprolol Tartrate (Lopressor) 50 mg PO Q12 [facility] Last Admin: 06/22/18 09:19 Dose: 50 mg Ondansetron HCl (Zofran Inj) 4 mg IVP Q6 PRN PRN Reason: Nausea/Vomiting Last Admin: 06/20/18 01:57 Dose: 4 mg Pantoprazole Sodium (Protonix Inj) 40 mg IVP DAILY [facility] Last Admin: 06/22/18 09:20 Dose: 40 mg - Labs Labs: 06/22/18 13:00 06/22/18 04:20 PT 14.4 Seconds (9.8-13.1) H 06/18/18 12:50 INR 1.3 06/18/18 12:50 - Constitutional Appears: Chronically Ill - Head Exam Head Exam: NORMAL INSPECTION - Eye Exam Eye Exam: Normal appearance - ENT Exam ENT Exam: Mucous Membranes Dry - Neck Exam Neck Exam: Full ROM. absent: Lymphadenopathy - Respiratory Exam Respiratory Exam: Decreased Breath Sounds - Cardiovascular Exam Cardiovascular Exam: REGULAR RHYTHM - GI/Abdominal Exam GI & Abdominal Exam: Normal Bowel Sounds. absent: Distended, Firm, Guarding - Rectal Exam Rectal Exam: Deferred - Extremities Exam Extremities Exam: absent: Pedal Edema - Back Exam Back Exam: NORMAL INSPECTION - Neurological Exam Neurological Exam: Alert - Psychiatric Exam Psychiatric exam: Normal Affect - Skin Skin Exam: Normal Color Assessment and Plan (1) CAD (coronary artery disease) Assessment & Plan: conservative therapy Status: Chronic (2) CHF (congestive heart failure) Assessment & Plan: not in acute CHF. volume status is improved Status: Chronic (3) Chronic kidney disease (CKD) Assessment & Plan: dialysis as per renal Status: Chronic
[2018-06-22] MEDS ORDERED: Metoprolol 1 mg/ml Inj IVP ONE (21:50)
[2018-06-23] MEDS ORDERED: Chlorhexidine Gluconate 1 APPL/PKT TP ONE (00:26)
[2018-06-23] MEDS: Ipratropium 0.02% Inhal Soln (0.5 mg/2.5 ml) UD IH SCH ×6 (00:39→19:10)
[2018-06-23] MEDS: Levalbuterol 1.25 MG/3 ML Inhal Soln UD INH SCH ×6 (00:39→19:10)
[2018-06-23 00:55] LABS: ABG ALLEN TEST YES; ARTERIAL BLOOD GAS HCO3 22.9 mmol/L (21-28); ARTERIAL BLOOD GAS HEMOGLOBIN 11.2 g/dL (11.7-17.4); ARTERIAL BLOOD GAS O2 CAPACITY 16.6 mL/dL (16-24); ARTERIAL BLOOD GAS O2 CONTENT 16.6 ML/dL (15-23); ARTERIAL BLOOD GAS O2 SAT 100.2 % (95-98); ARTERIAL BLOOD GAS PCO2 49 mm/Hg (35-45); ARTERIAL BLOOD GAS PO2 408 mm/Hg (80-100); ARTERIAL BLOOD GAS TCO2 25.6 mmol/L (22-28)
[2018-06-23 05:23] LABS: BASO % 0.2 % (0.0-2.0); HEMOGLOBIN 10.1 g/dL (12.0-18.0); LYMPH # 0.4 K/uL (1.0-4.3); LYMPH % 7.7 % (20.0-40.0); MEAN CELL VOLUME 87.8 fl (80.0-94.0); MEAN CORPUSCULAR HEMOGLOBIN 30.5 pg (27.0-31.0); MEAN CORPUSCULAR HGB CONC 34.7 g/dL (33.0-37.0); MEAN PLATELET VOLUME 11.4 fl (7.2-11.7); MONO # 0.1 K/uL (0.0-0.8); MONO % 1.5 % (0.0-10.0); NEUT # 4.6 K/uL (1.8-7.0); NEUT % 90.6 % (50.0-75.0); NRBC % 0.1 % (0.0-0.0); RED CELL DISTRIBUTION WIDTH 16.3 % (11.5-14.5); WHITE BLOOD COUNT 5.1 K/uL (4.8-10.8)
[2018-06-23 05:55] LABS: ALB/GLOB RATIO 0.7 (1.0-2.1); ALBUMIN 2.9 g/dL (3.5-5.0); CALCIUM 8.1 mg/dL (8.4-10.2)
[2018-06-23 06:15] LABS: PLATELET COUNT 27 K/uL (130-400)
--- NOTE | 2018-06-23 08:36 | RAD ---
Date of service: 06/23/2018 PROCEDURE: CHEST RADIOGRAPH, 1 VIEW HISTORY: sob COMPARISON: 06/22/2018 FINDINGS: LUNGS: Endotracheal tube removed Interval increased symmetrical pulmonary venous congestion PLEURA: Thorax. Similar trace left pleural effusion CARDIOVASCULAR: Cardiomegaly and interval increased bilateral symmetrical pulmonary venous congestion. OSSEOUS STRUCTURES: Similar midline sternotomy wires present VISUALIZED UPPER ABDOMEN: Inferred NG tube removal. OTHER FINDINGS: None. IMPRESSION: Cardiomegaly with interval increased pulmonary venous congestion-compatible with CHF. Similar trace left pleural effusion Interval endotracheal and NG tube removals
[2018-06-23 09:39] LABS: BANDS 2 % (0-2); BASOPHIL 1 % (0-2); LYMPHOCYTE 10 % (20-50); MONOCYTE 2 % (0-10); NEUTROPHIL 85 % (42-75); TOTAL CELLS COUNTED 100
[2018-06-23 09:41] LABS: GIANT PLATELETS PRESENT; OVALOCYTES SLIGHT; PLATELET CLUMPS PRESENT; SPHEROCYTES SLIGHT
[2018-06-23 09:42] LABS: PLATELET ESTIMATE MARKEDLY DECREASED (NORMAL)
[2018-06-23] MEDS: MethylPREDNISolone 40 mg Vial IVP SCH ×2 (10:17→21:41)
--- NOTE | 2018-06-23 11:58 | CP.PCM.PN ---
Subjective - Date & Time of Evaluation Date of Evaluation: 06/23/18 Time of Evaluation: 11:49 - Subjective Subjective: Pt extubated himself last night and then was extremely agitated all night long. he was given some ativan and is deeply sedated . His CBC shows the wbc to be 5.1, hgb 10.1g. platelet 27K. Pt was on aspirin. I suggest discontinuing the asp irin until the platelet count is up to at least 40K. Objective - Vital Signs/Intake and Output Vital Signs (last 24 hours): Temp Pulse Resp BP Pulse Ox 98.2 F 87 21 140/78 100 06/23/18 08:00 06/23/18 10:12 06/23/18 10:00 06/23/18 10:12 06/23/18 10:00 Intake and Output: 06/23/18 06/23/18 06:59 18:59 Intake Total 285 0 Balance 285 0 - Medications Medications: Current Medications Acetaminophen (Tylenol 325mg Tab) 650 mg PO Q6 PRN PRN Reason: Headache Last Admin: 06/20/18 01:26 Dose: 650 mg Aspirin (Aspirin Chewable) 81 mg PO DAILY [facility] Last Admin: 06/23/18 10:12 Dose: Not Given Furosemide (Lasix) 40 mg IVP BID [facility] Last Admin: 06/23/18 10:12 Dose: 40 mg Guaifenesin (Robitussin) 100 mg PO Q4 PRN PRN Reason: Cough Last Admin: 06/20/18 23:55 Dose: 100 mg Piperacillin Sod/Tazobactam (Sod 2.25 gm/ Sodium Chloride) 100 mls @ 100 mls/hr IVPB Q6 [facility]; Protocol Last Admin: 06/23/18 10:16 Dose: 100 mls/hr Dexmedetomidine HCl 400 mcg/ (Sodium Chloride) 100 mls @ 3.86 mls/hr IV .Q24H [facility]; Protocol Stop: 06/23/18 11:59 Last Titration: 06/23/18 09:00 Dose: 0 mcg/kg/hr, 0 mls/hr Vancomycin HCl 750 mg/ Sodium (Chloride) 250 mls @ 166.667 mls/hr IVPB Q12 [facility]; Protocol Last Admin: 06/23/18 10:16 Dose: 166.667 mls/hr Ipratropium [place] (Atrovent) 0.5 mg IH RQ4 [facility] Last Admin: 06/23/18 11:00 Dose: 0.5 mg Levalbuterol HCl (Xopenex) 1.25 mg INH RQ2 PRN PRN Reason: Shortness of Breath Last Admin: 06/20/18 10:03 Dose: 1.25 mg Levalbuterol HCl (Xopenex) 1.25 mg INH RQ4 [facility] Last Admin: 06/23/18 11:00 Dose: 1.25 mg Methylprednisolone (Solu-Medrol) 40 mg IVP Q12 [facility] Last Admin: 06/23/18 10:17 Dose: 40 mg Metoprolol Tartrate (Lopressor) 50 mg PO Q12 [facility] Last Admin: 06/23/18 10:12 Dose: Not Given Ondansetron HCl (Zofran Inj) 4 mg IVP Q6 PRN PRN Reason: Nausea/Vomiting Last Admin: 06/20/18 01:57 Dose: 4 mg Pantoprazole Sodium (Protonix Inj) 40 mg IVP DAILY [facility] Last Admin: 06/23/18 10:17 Dose: 40 mg - Labs Labs: 06/23/18 04:20 06/23/18 04:20 PT 14.4 Seconds (9.8-13.1) H 06/18/18 12:50 INR 1.3 06/18/18 12:50
--- NOTE | 2018-06-23 12:50 | CP.PCM.PN ---
Subjective - Date & Time of Evaluation Date of Evaluation: 06/23/18 Time of Evaluation: 09:30 - Subjective Subjective: Patient seen and examined this morning in ICU, self extubated yesterday, tolerated well. nonverbal, uncooperative with exam Afebrile, no sob or chest pain appreciated. VSS As per nurse patient pulled out HD catheter, needs PICC insertion for IV fluids and meds No official health Care proxy, discussed with ICU attending needs for emergent / urgent PICC placement under IR specialty-imaging guidance given thrombocytopenia in order to obtain a stable form of venous access for further management. Objective - Vital Signs/Intake and Output Vital Signs (last 24 hours): Temp Pulse Resp BP Pulse Ox 97.5 F L 103 H 20 164/92 H 100 06/23/18 12:00 06/23/18 12:00 06/23/18 12:00 06/23/18 12:00 06/23/18 12:00 Intake and Output: 06/23/18 06/23/18 06:59 18:59 Intake Total 285 0 Balance 285 0 - Medications Medications: Current Medications Acetaminophen (Tylenol 325mg Tab) 650 mg PO Q6 PRN PRN Reason: Headache Last Admin: 06/20/18 01:26 Dose: 650 mg Aspirin (Aspirin Chewable) 81 mg PO DAILY [facility] Last Admin: 06/23/18 10:12 Dose: Not Given Furosemide (Lasix) 40 mg IVP BID [facility] Last Admin: 06/23/18 10:12 Dose: 40 mg Guaifenesin (Robitussin) 100 mg PO Q4 PRN PRN Reason: Cough Last Admin: 06/20/18 23:55 Dose: 100 mg Piperacillin Sod/Tazobactam (Sod 2.25 gm/ Sodium Chloride) 100 mls @ 100 mls/hr IVPB Q6 [facility]; Protocol Last Admin: 06/23/18 10:16 Dose: 100 mls/hr Vancomycin HCl 750 mg/ Sodium (Chloride) 250 mls @ 166.667 mls/hr IVPB Q12 [facility]; Protocol Last Admin: 06/23/18 10:16 Dose: 166.667 mls/hr Ipratropium [place] (Atrovent) 0.5 mg IH RQ4 [facility] Last Admin: 06/23/18 11:00 Dose: 0.5 mg Levalbuterol HCl (Xopenex) 1.25 mg INH RQ2 PRN PRN Reason: Shortness of Breath Last Admin: 06/20/18 10:03 Dose: 1.25 mg Levalbuterol HCl (Xopenex) 1.25 mg INH RQ4 [facility] Last Admin: 06/23/18 11:00 Dose: 1.25 mg Lorazepam (Ativan) 1 mg IVP Q6 PRN PRN Reason: Agitation Methylprednisolone (Solu-Medrol) 40 mg IVP Q12 [facility] Last Admin: 06/23/18 10:17 Dose: 40 mg Metoprolol Tartrate (Lopressor) 50 mg PO Q12 [facility] Last Admin: 06/23/18 10:12 Dose: Not Given Ondansetron HCl (Zofran Inj) 4 mg IVP Q6 PRN PRN Reason: Nausea/Vomiting Last Admin: 06/20/18 01:57 Dose: 4 mg Pantoprazole Sodium (Protonix Inj) 40 mg IVP DAILY [facility] Last Admin: 06/23/18 10:17 Dose: 40 mg - Labs Labs: 06/23/18 04:20 06/23/18 04:20 PT 14.4 Seconds (9.8-13.1) H 06/18/18 12:50 INR 1.3 06/18/18 12:50 - Constitutional Appears: Other (Mildly agitated, in 1:1) - Head Exam Head Exam: NORMAL INSPECTION - Eye Exam Eye Exam: EOMI, PERRL - Respiratory Exam Respiratory Exam: Decreased Breath Sounds, Prolonged Expiratory Phase - Cardiovascular Exam Cardiovascular Exam: REGULAR RHYTHM, +S1, +S2 - GI/Abdominal Exam GI & Abdominal Exam: Soft. absent: Distended, Tenderness - Extremities Exam Extremities Exam: absent: Calf Tenderness - Neurological Exam Additional comments: Mildly agitated - Skin Skin Exam: Dry, Warm Assessment and Plan - Assessment and Plan (Free Text) Assessment: 78 Years old Male with PMHx of HTN, CKD-4, Myelodysplastic Syndrome, CHF, Asthma and COPD admitted due to worsening SOB with productive cough likely 2/2 to COPD exacerbation. Plan: - Extubated - MRSA positive - ID consulted, recommeds appreciated. - Pulmonology consulted, recommendations appreciated - stable H/H - Cr improving - thrombocytopenia satble - started on vanco and zosyn IV - nephro on board, recommendations appreciated - Heme/onco on board, f/u recomm - needs for PICC line insertion - Continue plan as ordered Case discussed with Dr Howard
--- NOTE | 2018-06-23 13:00 | CP.CCUPN ---
CCU Subjective - Physician Review Subjective (Free Text): Events over the past 72 H reviewed. Underwent self-extubation yesterday despite anxiolytics, no apparent injury of other sequelae noted so far. Recd 2 mg Ativan dose overnight and still sedated this AM, but has also remained on low dose Precedex infusion as well, which has been stopped. He did self-remove temporary HD groin catheter, too. Placed on 1:1 supervision this AM for patients safety. Other vitals and I/O's reviewed. No fever spikes last 24H, approx. 800 ml urine output overnight. Placed onto nasal cannula and SPO2 99-100^%. ROS: No other pertinent negs or positives on 10+ system review- unobtainable due to agitation. PMSFH: All other Nursing and physician documentation reviewed to date; no new pertinent info noted relevant to current medical problems. EXAM- HEENT: no icterus, no gaze preference, Pupils 3 mm and reactive. NECK: No JVD visible, supple, carotids equal upstroke bilat/no bruit CHEST: clear bilateral BS , no wheezes audible HEART: regular, distant, tachy S1S2, no rubs ABD: softly and nontender, no guarding, no organomegaly, BS hypoactive. EXT: +1 edema, no calf tenderness or palpable cords, distal pulses intact and symmetrical. NEURO: no focal motor deficits. SKIN: no rashes, warm and dry LABS: WBC= 5.1 HGB= 10.1 PLTs= 27K 7.30/49/408 Na= 137 K= 4.3 CL= 100 HCO3= 29 BUN/Cr= 55/2.9 BS= 141 AST= 689 (increased) ALT= 819 (increased) CXR: minor bilateral basilar and bi-hilar interstitial changes. IMPRESSION / MAJOR PROBLEMS NOW: 1. Delirium 2. s/p Acute Hypoxemic Resp failure, self extubated yesterday after 3 days on MV. 3. Bilateral PNA 4. CHF 2 DDysfx and Pulm edema from Acute Renal faikure 5. Pancytopenia / MDS PLAN: 1. PRN anxiolysis, Get OOB as tolerated. 2. Needs PICC line. 3. Discussed with Nephro, no further need for repeat HD. 4. No evidence of any acute bleeding, but may need platelets for any invasive procedure ( PICC) today. 5. Lasix IV / Lasix Drip PRN 6. Consider weaning steroids. Day #2 Empiric Zosyn / Vanco. Vanco trough level in AM. 7. Transaminase rise noted 2' ?? ischemic hepatocellular disease, monitor repeal levels, no suspicion of active hepatic infection. 8. No official health Care proxy, discussed with PMD, will place 2-physician consent for urgent PICC placement under IR specialty guidance given low platelets. CCU Objective - Vital Signs / Intake & Output Vital Signs (Last 4 hours): Vital Signs Temp Pulse Resp BP Pulse Ox 06/23/18 12:00 97.5 F L 103 H 20 164/92 H 100 06/23/18 10:12 87 140/78 06/23/18 10:00 90 21 140/78 100 Intake and Output (Last 8hrs): Intake & Output 06/22/18 06/23/18 06/23/18 22:59 06:59 14:59 Intake Total 220 185 0 Output Total 800 Balance -580 185 0 Intake: IV 8 85 0 Intake, Piggyback 212 100 Output: Urine 800 Condom 400 Straight 400 Other: # Voids Condom 0 # Bowel Movements 0
--- NOTE | 2018-06-23 14:08 | CP.PCM.CON ---
History of Present Illness - History of Present Illness History of Present Illness: Mr. Romeo is 78 yo wm with pmh/o MDS, cad, s/p CABG about 15 yrs ago, hypothyroidism, CHF, COPD was admitted to [facility] for about 2 months as per pt's family. was discharged about 2 weks ago on VFend for unknown reason and was to ER on with cc/o severe cough, sob, cough associated yellow sputum for few days. here he developed respiratory distress and s/p [employer], pt was transferred to ICU. renal Was eventually extubated but remains consed agitated and bed bound Review of Systems - Review of Systems Systems not reviewed;Unavailable: Altered Mental Status All systems: reviewed and no additional remarkable complaints except - Constitutional Constitutional: As Per HPI - EENT Eyes: absent: As Per HPI, Blind Spots, Blurred Vision, Change in Vision, Decreased Night Vision, Diplopia, Discharge, Dry Eye, Exophthalmos, Floaters, Irritation, Itchy Eyes, Loss of Peripheral Vision, Pain, Photophobia, Requires Corrective Lenses, Sees Flashes, Spots in Vision, Tunnel Vision, Other Visual Disturbances, Loss of Vision, Other Ears: absent: As Per HPI, Decreased Hearing, Ear Discharge, Ear Pain, Tinnitus, Abnormal Hearing, Disequilibrium, Dizziness, Other Nose/Mouth/Throat: absent: As Per HPI, Epistaxis, Nasal Congestion, Nasal Discharge, Nasal Obstruction, Nasal Trauma, Nose Pain, Post Nasal Drip, Sinus Pain, Sinus Pressure, Bleeding Gums, Change in Voice, Dental Pain, Dry Mouth, Dysphagia, Halitosis, Hoarsness, Lip Swelling, Mouth Lesions, Mouth Pain, Odynophagia, Sore Throat, Throat Swelling, Tongue Swelling, Facial Pain, Neck Pain, Neck Mass, Other - Cardiovascular Cardiovascular: As Per HPI - Respiratory Respiratory: As Per HPI - Gastrointestinal Gastrointestinal: absent: As Per HPI, Abdominal Pain, Belching, Bloating, Change in Bowel Habits, Change in Stool Character, Coffee Ground Emesis, Constipation, Cramping, Diarrhea, Dyspepsia, Dysphagia, Early Satiety, Excessive Flatus, Fecal Incontinence, Heartburn, Hematemesis, Hematochezia, Loose Stools, Melena, Nausea, Odynophagia, Temesmus, Vomiting, Other - Genitourinary Genitourinary: absent: As Per HPI, Change in Urinary Stream, Difficulty Urina ting, Dysuria, Flank Pain, Hematuria, Pyuria, Nocturia, Urinary Incontinence, Urinary Frequency, Urinary Hesitance, Urinary Urgency, Voiding Freq/Small Amts, Freq UTI, Hx Renal/Bladder Calculi, Hx /Renal Surgery, Bladder Distension, Other - Musculoskeletal Musculoskeletal: absent: As Per HPI, Abnormal Gait, Arthralgias, Atrophy, Back Pain, Deformity, Joint Swelling, Limited Range of Motion, Loss of Height, Muscle Cramps, Muscle Weakness, Myalgias, Neck Pain, Numbness, Radiating Pain into Limb, Stiffness, Tingling, Other - Integumentary Integumentary: absent: As Per HPI, Acne, Alopecia, Bleeding Lesions, Change in Hair, Change in Nails, Change in Pigmentation, Changing Lesions, Dry Skin, Erythema, Furuncle, Hirsutism, Lesions, New Lesions, Non-Healing Lesions, Photosensitivity, Pruritus, Rash, Skin Pain, Skin Ulcer, Sores, Striae, Swelling, Unusual Bruising, Wounds, Jaundice, Other - Neurological Neurological: As Per HPI - Psychiatric Psychiatric: absent: As Per HPI, Abnormal Sleep Pattern, Anhedonia, Anxiety, Auditory Hallucinations, Behavioral Changes, Change in Appetite, Change in Libido, Confusion, Depression, Difficulty Concentrating, Hallucinations, Homicidal Ideation, Hopelessness, Irritability, Memory Loss, Mood Swings, Panic Attacks, Paranoia, Suicidal Ideation, Visual Hallucinations, Tactile Hallucinations, Other - Endocrine Endocrine: absent: As Per HPI, Change in Body Appearance, Change in Libido, Cold Intolorance, Deepening of Voice, Excessive Sweating, Fatigue, Flushing, Heat Intolorance, Increase in Ring/Shoe/Hat Size, Palpitations, Polydipsia, Polyphagia, Polyuria, Other - Hematologic/Lymphatic Hematologic: absent: As Per HPI, Easy Bleeding, Easy Bruising, Lymphadenopathy, Other Past Patient History - Past Medical History & Family History Past Medical History?: Yes - Past Social History Smoking Status: Former Smoker Chewing Tobacco Use: No Cigar Use: No Alcohol: None Drugs: Denies Home Situation {Lives}: With Family - CARDIAC Hx Cardiac Disorders: Yes Hx Congestive Heart Failure: Yes Hx Hypercholesterolemia: Yes Hx Hypertension: Yes - PULMONARY Hx Respiratory Disorders: Yes Hx Asthma: Yes Hx Chronic Obstructive Pulmonary Disease (COPD): Yes Hx Pneumonia: Yes - NEUROLOGICAL Hx Neurological Disorder: No - HEENT Hx HEENT Problems: No - RENAL Hx Chronic Kidney Disease: Yes Hx Renal Failure: Yes - ENDOCRINE/METABOLIC Hx Hypothyroidism: Yes - HEMATOLOGICAL/ONCOLOGICAL Hx Blood Disorders: Yes Hx AIDS: No Hx Anemia: Yes Hx Human Immunodeficiency Virus (HIV): No - INTEGUMENTARY Hx Dermatological Problems: No - MUSCULOSKELETAL/RHEUMATOLOGICAL Hx Musculoskeletal Disorders: Yes Hx Arthritis: Yes Hx Falls: No - GASTROINTESTINAL Hx Gastrointestinal Disorders: No - GENITOURINARY/GYNECOLOGICAL Hx Genitourinary Disorders: Yes Hx Prostate Problems: Yes - PSYCHIATRIC Hx Psychophysiologic Disorder: Yes Hx Anxiety: Yes Hx Substance Use: No - SURGICAL HISTORY Hx Surgeries: Yes Hx Coronary Artery Bypass Graft: Yes Hx Coronary Stent: Yes - ANESTHESIA Hx Anesthesia: Yes Hx Anesthesia Reactions: No Hx Malignant Hyperthermia: No Has any member of the family had a problem w/ anesthesia?: No Meds Allergies/Adverse Reactions: Allergies Allergy/AdvReac Type Severity Reaction Status Date / Time No Known Allergies Allergy Verified 03/18/18 18:25 - Medications Medications: Current Medications Acetaminophen (Tylenol 325mg Tab) 650 mg PO Q6 PRN PRN Reason: Headache Last Admin: 06/20/18 01:26 Dose: 650 mg Aspirin (Aspirin Chewable) 81 mg PO DAILY [facility] Last Admin: 06/23/18 10:12 Dose: Not Given Furosemide (Lasix) 40 mg IVP BID [facility] Last Admin: 06/23/18 10:12 Dose: 40 mg Guaifenesin (Robitussin) 100 mg PO Q4 PRN PRN Reason: Cough Last Admin: 06/20/18 23:55 Dose: 100 mg Piperacillin Sod/Tazobactam (Sod 2.25 gm/ Sodium Chloride) 100 mls @ 100 mls/hr IVPB Q6 [facility]; Protocol Last Admin: 06/23/18 10:16 Dose: 100 mls/hr Vancomycin HCl 750 mg/ Sodium (Chloride) 250 mls @ 166.667 mls/hr IVPB Q12 [facility]; Protocol Last Admin: 06/23/18 10:16 Dose: 166.667 mls/hr Ipratropium [place] (Atrovent) 0.5 mg IH RQ4 [facility] Last Admin: 06/23/18 11:00 Dose: 0.5 mg Levalbuterol HCl (Xopenex) 1.25 mg INH RQ2 PRN PRN Reason: Shortness of Breath Last Admin: 06/20/18 10:03 Dose: 1.25 mg Levalbuterol HCl (Xopenex) 1.25 mg INH RQ4 [facility] Last Admin: 06/23/18 11:00 Dose: 1.25 mg Lorazepam (Ativan) 1 mg IVP Q6 PRN PRN Reason: Agitation Last Admin: 06/23/18 12:53 Dose: 1 mg Methylprednisolone (Solu-Medrol) 40 mg IVP Q12 [facility] Last Admin: 06/23/18 10:17 Dose: 40 mg Metoprolol Tartrate (Lopressor) 50 mg PO Q12 [facility] Last Admin: 06/23/18 10:12 Dose: Not Given Ondansetron HCl (Zofran Inj) 4 mg IVP Q6 PRN PRN Reason: Nausea/Vomiting Last Admin: 06/20/18 01:57 Dose: 4 mg Pantoprazole Sodium (Protonix Inj) 40 mg IVP DAILY [facility] Last Admin: 06/23/18 10:17 Dose: 40 mg Physical Exam - Constitutional Appears: Confused, Cachectic, Chronically Ill - Head Exam Head Exam: ATRAUMATIC, NORMAL INSPECTION, NORMOCEPHALIC - Eye Exam Eye Exam: EOMI, PERRL. absent: Scleral icterus - ENT Exam ENT Exam: Mucous Membranes Dry, Normal External Ear Exam - Neck Exam Neck exam: Negative for: Lymphadenopathy - Respiratory Exam Respiratory Exam: Decreased Breath Sounds, Prolonged Expiratory Phase, Rhonchi - Cardiovascular Exam Cardiovascular Exam: REGULAR RHYTHM, +S1, +S2 - GI/Abdominal Exam GI & Abdominal Exam: Diminished Bowel Sounds, Soft. absent: Tenderness - Rectal Exam Rectal Exam: Deferred - Exam Exam: NORMAL INSPECTION - Extremities Exam Extremities exam: Positive for: pedal pulses present. Negative for: calf tenderness, pedal edema, tenderness - Back Exam Back exam: absent: CVA tenderness (L), CVA tenderness (R) - Neurological Exam Neurological exam: Alert, Altered, CN II-XII Intact - Psychiatric Exam Psychiatric exam: Depressed - Skin Skin Exam: Dry Results - Vital Signs Recent Vital Signs: Last Vital Signs Temp 97.5 F L 06/23/18 12:00 Pulse 103 H 06/23/18 12:00 Resp 20 06/23/18 12:00 BP 164/92 H 06/23/18 12:00 Pulse Ox 100 06/23/18 12:00 - Labs Result Diagrams: 06/23/18 04:20 06/23/18 04:20 Labs: Laboratory Results - last 24 hr 06/22/18 06/23/18 06/23/18 13:00 00:44 04:20 WBC 5.1 RBC 3.30 L Hgb 10.1 L Hct 29.0 L MCV 87.8 MCH 30.5 MCHC 34.7 RDW 16.3 H Plt Count 27 L* D MPV 11.4 Neut % (Auto) 90.6 H Lymph % (Auto) 7.7 L Forrest % (Auto) 1.5 Eos % (Auto) 0.0 Baso % (Auto) 0.2 Neut # (Auto) 4.6 Lymph # (Auto) 0.4 L Forrest # (Auto) 0.1 Eos # (Auto) 0.0 Baso # (Auto) 0.0 Neutrophils % (Manual) 84 H 85 H Band Neutrophils % 1 2 Lymphocytes % (Manual) 9 L 10 L Monocytes % (Manual) 4 2 Basophils % (Manual) 1 Metamyelocytes % 1 H Myelocytes % 1 H Platelet Estimate Markedly decreased L Markedly decreased L Plt Clumps, EDTA Present Large Platelets Present Giant Platelets Present Present Hypochromasia (manual) Slight Anisocytosis (manual) Slight Spherocytes Slight Ovalocytes Slight Slight pCO2 49 H pO2 408 H HCO3 22.9 ABG pH 7.30 L ABG Total CO2 25.6 ABG O2 Saturation 100.2 H ABG O2 Content 16.6 ABG Base Excess -2.6 L ABG Hemoglobin 11.2 L ABG Carboxyhemoglobin 1.2 POC ABG HHb (Measured) -0.2 L ABG Methemoglobin 0.9 ABG O2 Capacity 16.6 Abdirizak Test Yes A-a O2 Difference 244.0 Hgb O2 Saturation 98.1 H FiO2 100.0 Crit Value Called To Dr jeffry block Crit Value Called By Christopher Crit Value Read Back Y Blood Gas Notified Time 54 Sodium Potassium Chloride Carbon Dioxide Anion Gap BUN Creatinine Est GFR ( Amer) Est GFR (Non-Af Amer) Random Glucose Calcium Total Bilirubin AST ALT Alkaline Phosphatase Total Protein Albumin Globulin Albumin/Globulin Ratio 06/23/18 04:20 WBC RBC Hgb Hct MCV MCH MCHC RDW Plt Count MPV Neut % (Auto) Lymph % (Auto) Forrest % (Auto) Eos % (Auto) Baso % (Auto) Neut # (Auto) Lymph # (Auto) Forrest # (Auto) Eos # (Auto) Baso # (Auto) Neutrophils % (Manual) Band Neutrophils % Lymphocytes % (Manual) Monocytes % (Manual) Basophils % (Manual) Metamyelocytes % Myelocytes % Platelet Estimate Plt Clumps, EDTA Large Platelets Giant Platelets Hypochromasia (manual) Anisocytosis (manual) Spherocytes Ovalocytes pCO2 pO2 HCO3 ABG pH ABG Total CO2 ABG O2 Saturation ABG O2 Content ABG Base Excess ABG Hemoglobin ABG Carboxyhemoglobin POC ABG HHb (Measured) ABG Methemoglobin ABG O2 Capacity Abdirizak Test A-a O2 Difference Hgb O2 Saturation FiO2 Crit Value Called To Crit Value Called By Crit Value Read Back Blood Gas Notified Time Sodium 137 Potassium 4.3 Chloride 100 Carbon Dioxide 29 Anion Gap 12 BUN 55 H Creatinine 2.9 H Est GFR ( Amer) 26 Est GFR (Non-Af Amer) 21 Random Glucose 141 H Calcium 8.1 L Total Bilirubin 1.0 AST 689 H D ALT 819 H D Alkaline Phosphatase 60 Total Protein 6.8 Albumin 2.9 L Globulin 4.0 H Albumin/Globulin Ratio 0.7 L Assessment & Plan (1) ACS (acute coronary syndrome) Status: Acute Priority: Medium (2) Acute respiratory failure with hypoxia Status: Acute Priority: High (3) COPD (chronic obstructive pulmonary disease) Status: Acute Priority: High (4) Pneumonia Status: Acute Priority: High (5) Renal failure (ARF), acute on chronic Status: Acute Priority: High (6) Myelodysplasia (myelodysplastic syndrome) Status: Chronic Priority: High - Assessment and Plan (Free Text) Assessment: Mr. Farmer is 78 yo wm with pmh/o MDS, cad, s/p CABG about 15 yrs ago, hypothyroidism, CHF, COPD septic work up in progress IV antibiotics reviewed
[2018-06-23] MEDS ORDERED: Dexmedetomidine Hydrochloride 400 MCG in Sodium Chloride 0.9% 96 ML IV ONE (14:26)
--- NOTE | 2018-06-23 14:27 | CP.PCM.CON ---
History of Present Illness - History of Present Illness History of Present Illness: GI Fellow PGY5 Consult This is a 78yM with past medical history of hx Myelodysplastic Syndrome, Asthma, BPH, CAD, CHF, COPD, HTN, HLD, Hypothyroidism, CKD presenting for worsening SOB with productive cough. Apparently he was admitted a few weeks ago and dx with pneumonia and discharged on antibiotics. Pt decompressed on the medical floor and transferred to ICU. Pt was intubated on MV and went into ARF started on HD with two sessions. Pt self extubated and pulled temp HD catheter yesterday. Pt is currently delirious and very agitated. Pt recent echo shows an EF of 25-30% with elevated troponins and AECHF. GI was consulted for elevated LFTS. ROS: A 12pt ROS was unable to be obtained from [facility] PMH: As stated in HPI PSH: CABG; Coronary Stents SH: Former Smoker;No Alcohol nor illegal drug use FA: Unknown Family Hx Past Patient History - Past Medical History & Family History Past Medical History?: Yes - Past Social History Smoking Status: Former Smoker Chewing Tobacco Use: No Cigar Use: No Alcohol: None Drugs: Denies Home Situation {Lives}: With Family - CARDIAC Hx Cardiac Disorders: Yes Hx Congestive Heart Failure: Yes Hx Hypercholesterolemia: Yes Hx Hypertension: Yes - PULMONARY Hx Respiratory Disorders: Yes Hx Asthma: Yes Hx Chronic Obstructive Pulmonary Disease (COPD): Yes Hx Pneumonia: Yes - NEUROLOGICAL Hx Neurological Disorder: No - HEENT Hx HEENT Problems: No - RENAL Hx Chronic Kidney Disease: Yes Hx Renal Failure: Yes - ENDOCRINE/METABOLIC Hx Hypothyroidism: Yes - HEMATOLOGICAL/ONCOLOGICAL Hx Blood Disorders: Yes Hx AIDS: No Hx Anemia: Yes Hx Human Immunodeficiency Virus (HIV): No - INTEGUMENTARY Hx Dermatological Problems: No - MUSCULOSKELETAL/RHEUMATOLOGICAL Hx Musculoskeletal Disorders: Yes Hx Arthritis: Yes Hx Falls: No - GASTROINTESTINAL Hx Gastrointestinal Disorders: No - GENITOURINARY/GYNECOLOGICAL Hx Genitourinary Disorders: Yes Hx Prostate Problems: Yes - PSYCHIATRIC Hx Psychophysiologic Disorder: Yes Hx Anxiety: Yes Hx Substance Use: No - SURGICAL HISTORY Hx Surgeries: Yes Hx Coronary Artery Bypass Graft: Yes Hx Coronary Stent: Yes - ANESTHESIA Hx Anesthesia: Yes Hx Anesthesia Reactions: No Hx Malignant Hyperthermia: No Has any member of the family had a problem w/ anesthesia?: No Meds Allergies/Adverse Reactions: Allergies Allergy/AdvReac Type Severity Reaction Status Date / Time No Known Allergies Allergy Verified 03/18/18 18:25 - Medications Medications: Current Medications Acetaminophen (Tylenol 325mg Tab) 650 mg PO Q6 PRN PRN Reason: Headache Last Admin: 06/20/18 01:26 Dose: 650 mg Aspirin (Aspirin Chewable) 81 mg PO DAILY [facility] Last Admin: 06/23/18 10:12 Dose: Not Given Furosemide (Lasix) 40 mg IVP BID [facility] Last Admin: 06/23/18 10:12 Dose: 40 mg Guaifenesin (Robitussin) 100 mg PO Q4 PRN PRN Reason: Cough Last Admin: 06/20/18 23:55 Dose: 100 mg Piperacillin Sod/Tazobactam (Sod 2.25 gm/ Sodium Chloride) 100 mls @ 100 mls/hr IVPB Q6 [facility]; Protocol Last Admin: 06/23/18 10:16 Dose: 100 mls/hr Vancomycin HCl 1,000 mg/ (Sodium Chloride) 250 mls @ 250 mls/hr IVPB Q48H [facility]; Protocol Micafungin Sodium 100 mg/ (Sodium Chloride) 100 mls @ 100 mls/hr IVPB DAILY [facility]; Protocol Ipratropium [place] (Atrovent) 0.5 mg IH RQ4 [facility] Last Admin: 06/23/18 11:00 Dose: 0.5 mg Levalbuterol HCl (Xopenex) 1.25 mg INH RQ2 PRN PRN Reason: Shortness of Breath Last Admin: 06/20/18 10:03 Dose: 1.25 mg Levalbuterol HCl (Xopenex) 1.25 mg INH RQ4 [facility] Last Admin: 06/23/18 11:00 Dose: 1.25 mg Lorazepam (Ativan) 1 mg IVP Q6 PRN PRN Reason: Agitation Last Admin: 06/23/18 12:53 Dose: 1 mg Methylprednisolone (Solu-Medrol) 40 mg IVP Q12 [facility] Last Admin: 06/23/18 10:17 Dose: 40 mg Metoprolol Tartrate (Lopressor) 50 mg PO Q12 [facility] Last Admin: 06/23/18 10:12 Dose: Not Given Ondansetron HCl (Zofran Inj) 4 mg IVP Q6 PRN PRN Reason: Nausea/Vomiting Last Admin: 06/20/18 01:57 Dose: 4 mg Pantoprazole Sodium (Protonix Inj) 40 mg IVP DAILY [facility] Last Admin: 06/23/18 10:17 Dose: 40 mg Physical Exam - Constitutional Appears: Toxic, In Acute Distress, Combative, Agitated, Confused, Chronically Ill - Head Exam Head Exam: ATRAUMATIC, NORMAL INSPECTION, NORMOCEPHALIC - ENT Exam ENT Exam: Mucous Membranes Dry - Respiratory Exam Respiratory Exam: Rales, Rhonchi, Respiratory Distress - Cardiovascular Exam Cardiovascular Exam: Tachycardia, +S1, +S2 - GI/Abdominal Exam GI & Abdominal Exam: Normal Bowel Sounds, Soft. absent: Distended, Firm, Guarding, Organomegaly, Tenderness - Rectal Exam Rectal Exam: Deferred - Extremities Exam Extremities exam: Positive for: full ROM - Psychiatric Exam Psychiatric exam: Agitated - Skin Skin Exam: Dry, Intact, Normal Color, Warm Results - Vital Signs Recent Vital Signs: Last Vital Signs Temp 97.5 F L 06/23/18 12:00 Pulse 103 H 06/23/18 12:00 Resp 20 06/23/18 12:00 BP 164/92 H 06/23/18 12:00 Pulse Ox 100 06/23/18 12:00 - Labs Result Diagrams: 06/23/18 04:20 06/23/18 04:20 Labs: Laboratory Results - last 24 hr 06/22/18 06/23/18 06/23/18 13:00 00:44 04:20 WBC 5.1 RBC 3.30 L Hgb 10.1 L Hct 29.0 L MCV 87.8 MCH 30.5 MCHC 34.7 RDW 16.3 H Plt Count 27 L* D MPV 11.4 Neut % (Auto) 90.6 H Lymph % (Auto) 7.7 L [place] % (Auto) 1.5 Eos % (Auto) 0.0 Baso % (Auto) 0.2 Neut # (Auto) 4.6 Lymph # (Auto) 0.4 L [place] # (Auto) 0.1 Eos # (Auto) 0.0 Baso # (Auto) 0.0 Neutrophils % (Manual) 84 H 85 H Band Neutrophils % 1 2 Lymphocytes % (Manual) 9 L 10 L Monocytes % (Manual) 4 2 Basophils % (Manual) 1 Metamyelocytes % 1 H Myelocytes % 1 H Platelet Estimate Markedly decreased L Markedly decreased L Plt Clumps, EDTA Present Large Platelets Present Giant Platelets Present Present Hypochromasia (manual) Slight Anisocytosis (manual) Slight Spherocytes Slight Ovalocytes Slight Slight pCO2 49 H pO2 408 H HCO3 22.9 ABG pH 7.30 L ABG Total CO2 25.6 ABG O2 Saturation 100.2 H ABG O2 Content 16.6 ABG Base Excess -2.6 L ABG Hemoglobin 11.2 L ABG Carboxyhemoglobin 1.2 POC ABG HHb (Measured) -0.2 L ABG Methemoglobin 0.9 ABG O2 Capacity 16.6 Abdirizak Test Yes A-a O2 Difference 244.0 Hgb O2 Saturation 98.1 H FiO2 100.0 Crit Value Called To Dr jeffry block Crit Value Called By Christopher Crit Value Read Back Y Blood Gas Notified Time 54 Sodium Potassium Chloride Carbon Dioxide Anion Gap BUN Creatinine Est GFR ( Amer) Est GFR (Non-Af Amer) Random Glucose Calcium Total Bilirubin AST ALT Alkaline Phosphatase Total Protein Albumin Globulin Albumin/Globulin Ratio 06/23/18 04:20 WBC RBC Hgb Hct MCV MCH MCHC RDW Plt Count MPV Neut % (Auto) Lymph % (Auto) [place] % (Auto) Eos % (Auto) Baso % (Auto) Neut # (Auto) Lymph # (Auto) [place] # (Auto) Eos # (Auto) Baso # (Auto) Neutrophils % (Manual) Band Neutrophils % Lymphocytes % (Manual) Monocytes % (Manual) Basophils % (Manual) Metamyelocytes % Myelocytes % Platelet Estimate Plt Clumps, EDTA Large Platelets Giant Platelets Hypochromasia (manual) Anisocytosis (manual) Spherocytes Ovalocytes pCO2 pO2 HCO3 ABG pH ABG Total CO2 ABG O2 Saturation ABG O2 Content ABG Base Excess ABG Hemoglobin ABG Carboxyhemoglobin POC ABG HHb (Measured) ABG Methemoglobin ABG O2 Capacity Abdirizak Test A-a O2 Difference Hgb O2 Saturation FiO2 Crit Value Called To Crit Value Called By Crit Value Read Back Blood Gas Notified Time Sodium 137 Potassium 4.3 Chloride 100 Carbon Dioxide 29 Anion Gap 12 BUN 55 H Creatinine 2.9 H Est GFR ( Amer) 26 Est GFR (Non-Af Amer) 21 Random Glucose 141 H Calcium 8.1 L Total Bilirubin 1.0 AST 689 H D ALT 819 H D Alkaline Phosphatase 60 Total Protein 6.8 Albumin 2.9 L Globulin 4.0 H Albumin/Globulin Ratio 0.7 L Assessment & Plan - Assessment and Plan (Free Text) Assessment: 1. Elevated LFTs 2. PNA 3. VDRF s/p extubation 4. COPD Exacerbation 5. Myelodysplastic Syndrome with Pancytopenia 6. ARF s/p HP 7. Delirium 8. AECHF 9. Elevated troponin Plan: -Continue supportive care in ICU -Elevated LFTs likely from Drug induced liver injury while on abx and congestive hepatopathy with CHF -Monitor LFTS -Will order Abd US to evaluate liver -Hepatitis profile ordered -Optimize cardiac function and fluid status -Recommend changing abx to less hepatotoxic agent -Transfuse as needed for MDS, hematology following -Will continue to follow pt
[2018-06-23] MEDS: Micafungin 100 MG in Sodium Chloride 0.9% 100 ML IVPB SCH (15:49)
--- NOTE | 2018-06-23 21:31 | CP.PCM.CON ---
History of Present Illness - History of Present Illness History of Present Illness: Patient seen, examined, and interrogated. Full consult to follow. Cont present treatment plan. Past Patient History - Past Medical History & Family History Past Medical History?: Yes - Past Social History Smoking Status: Former Smoker Chewing Tobacco Use: No Cigar Use: No Alcohol: None Drugs: Denies Home Situation {Lives}: With Family - CARDIAC Hx Cardiac Disorders: Yes Hx Congestive Heart Failure: Yes Hx Hypercholesterolemia: Yes Hx Hypertension: Yes - PULMONARY Hx Respiratory Disorders: Yes Hx Asthma: Yes Hx Chronic Obstructive Pulmonary Disease (COPD): Yes Hx Pneumonia: Yes - NEUROLOGICAL Hx Neurological Disorder: No - HEENT Hx HEENT Problems: No - RENAL Hx Chronic Kidney Disease: Yes Hx Renal Failure: Yes - ENDOCRINE/METABOLIC Hx Hypothyroidism: Yes - HEMATOLOGICAL/ONCOLOGICAL Hx Blood Disorders: Yes Hx AIDS: No Hx Anemia: Yes Hx Human Immunodeficiency Virus (HIV): No - INTEGUMENTARY Hx Dermatological Problems: No - MUSCULOSKELETAL/RHEUMATOLOGICAL Hx Musculoskeletal Disorders: Yes Hx Arthritis: Yes Hx Falls: No - GASTROINTESTINAL Hx Gastrointestinal Disorders: No - GENITOURINARY/GYNECOLOGICAL Hx Genitourinary Disorders: Yes Hx Prostate Problems: Yes - PSYCHIATRIC Hx Psychophysiologic Disorder: Yes Hx Anxiety: Yes Hx Substance Use: No - SURGICAL HISTORY Hx Surgeries: Yes Hx Coronary Artery Bypass Graft: Yes Hx Coronary Stent: Yes - ANESTHESIA Hx Anesthesia: Yes Hx Anesthesia Reactions: No Hx Malignant Hyperthermia: No Has any member of the family had a problem w/ anesthesia?: No Meds Allergies/Adverse Reactions: Allergies Allergy/AdvReac Type Severity Reaction Status Date / Time No Known Allergies Allergy Verified 03/18/18 18:25 - Medications Medications: Current Medications Acetaminophen (Tylenol 325mg Tab) 650 mg PO Q6 PRN PRN Reason: Headache Last Admin: 06/20/18 01:26 Dose: 650 mg Aspirin (Aspirin Chewable) 81 mg PO DAILY [facility] Last Admin: 06/23/18 10:12 Dose: Not Given Furosemide (Lasix) 40 mg IVP BID [facility] Last Admin: 06/23/18 18:33 Dose: 40 mg Guaifenesin (Robitussin) 100 mg PO Q4 PRN PRN Reason: Cough Last Admin: 06/20/18 23:55 Dose: 100 mg Haloperidol Lactate (Haldol) 5 mg IVP Q6 PRN PRN Reason: Agitation Last Admin: 06/23/18 18:32 Dose: 5 mg Piperacillin Sod/Tazobactam (Sod 2.25 gm/ Sodium Chloride) 100 mls @ 100 mls/hr IVPB Q6 [facility]; Protocol Last Admin: 06/23/18 15:45 Dose: 100 mls/hr Vancomycin HCl 1 gm/ Sodium (Chloride) 250 mls @ 125 mls/hr IVPB Q48H [facility]; Protocol Last Admin: 06/23/18 15:48 Dose: Not Given Micafungin Sodium 100 mg/ (Sodium Chloride) 100 mls @ 100 mls/hr IVPB DAILY [facility]; Protocol Last Admin: 06/23/18 15:49 Dose: 100 mls/hr Dexmedetomidine HCl 400 mcg/ (Sodium Chloride) 100 mls @ 3.86 mls/hr IV .Q24H [facility]; Protocol Stop: 06/24/18 14:25 Last Titration: 06/23/18 16:30 Dose: 0 mcg/kg/hr, 0 mls/hr Ipratropium [place] (Atrovent) 0.5 mg IH RQ4 [facility] Last Admin: 06/23/18 19:10 Dose: 0.5 mg Levalbuterol HCl (Xopenex) 1.25 mg INH RQ2 PRN PRN Reason: Shortness of Breath Last Admin: 06/20/18 10:03 Dose: 1.25 mg Levalbuterol HCl (Xopenex) 1.25 mg INH RQ4 [facility] Last Admin: 06/23/18 19:10 Dose: 1.25 mg Lorazepam (Ativan) 1 mg IVP Q6 PRN PRN Reason: Agitation Last Admin: 06/23/18 12:53 Dose: 1 mg Methylprednisolone (Solu-Medrol) 40 mg IVP Q12 [facility] Last Admin: 06/23/18 10:17 Dose: 40 mg Metoprolol Tartrate (Lopressor) 50 mg PO Q12 [facility] Last Admin: 06/23/18 10:12 Dose: Not Given Morphine Sulfate (Morphine) 4 mg IVP Q4 PRN PRN Reason: Pain, moderate (4-7) Last Admin: 06/23/18 18:15 Dose: 4 mg Ondansetron HCl (Zofran Inj) 4 mg IVP Q6 PRN PRN Reason: Nausea/Vomiting Last Admin: 06/20/18 01:57 Dose: 4 mg Pantoprazole Sodium (Protonix Inj) 40 mg IVP DAILY [facility] Last Admin: 06/23/18 10:17 Dose: 40 mg Results - Vital Signs Recent Vital Signs: Last Vital Signs Temp 98.6 F 06/23/18 16:00 Pulse 117 H 06/23/18 18:00 Resp 15 06/23/18 18:00 BP 171/97 H 06/23/18 18:33 Pulse Ox 96 06/23/18 18:00 - Labs Result Diagrams: 06/23/18 04:20 06/23/18 04:20 Labs: Laboratory Results - last 24 hr 06/23/18 06/23/18 06/23/18 00:44 04:20 04:20 WBC 5.1 RBC 3.30 L Hgb 10.1 L Hct 29.0 L MCV 87.8 MCH 30.5 MCHC 34.7 RDW 16.3 H Plt Count 27 L* D MPV 11.4 Neut % (Auto) 90.6 H Lymph % (Auto) 7.7 L [place] % (Auto) 1.5 Eos % (Auto) 0.0 Baso % (Auto) 0.2 Neut # (Auto) 4.6 Lymph # (Auto) 0.4 L [place] # (Auto) 0.1 Eos # (Auto) 0.0 Baso # (Auto) 0.0 Neutrophils % (Manual) 85 H Band Neutrophils % 2 Lymphocytes % (Manual) 10 L Monocytes % (Manual) 2 Basophils % (Manual) 1 Platelet Estimate Markedly decreased L Plt Clumps, EDTA Present Giant Platelets Present Spherocytes Slight Ovalocytes Slight pCO2 49 H pO2 408 H HCO3 22.9 ABG pH 7.30 L ABG Total CO2 25.6 ABG O2 Saturation 100.2 H ABG O2 Content 16.6 ABG Base Excess -2.6 L ABG Hemoglobin 11.2 L ABG Carboxyhemoglobin 1.2 POC ABG HHb (Measured) -0.2 L ABG Methemoglobin 0.9 ABG O2 Capacity 16.6 Abdirizak Test Yes A-a O2 Difference 244.0 Hgb O2 Saturation 98.1 H FiO2 100.0 Crit Value Called To Dr jeffry block Crit Value Called By Christopher Crit Value Read Back Y Blood Gas Notified Time 54 Sodium 137 Potassium 4.3 Chloride 100 Carbon Dioxide 29 Anion Gap 12 BUN 55 H Creatinine 2.9 H Est GFR ( Amer) 26 Est GFR (Non-Af Amer) 21 Random Glucose 141 H Calcium 8.1 L Total Bilirubin 1.0 AST 689 H D ALT 819 H D Alkaline Phosphatase 60 Total Protein 6.8 Albumin 2.9 L Globulin 4.0 H Albumin/Globulin Ratio 0.7 L
[2018-06-23] MEDS ORDERED: Metoprolol 1 mg/ml Inj IVP ONE (21:48)
[2018-06-24] MEDS: Levalbuterol 1.25 MG/3 ML Inhal Soln UD INH SCH ×7 (05:13→23:31)
[2018-06-24] MEDS: Ipratropium 0.02% Inhal Soln (0.5 mg/2.5 ml) UD IH SCH ×7 (05:13→23:31)
[2018-06-24 05:38] LABS: HEMOGLOBIN 11.2 g/dL (12.0-18.0); MEAN CELL VOLUME 90.3 fl (80.0-94.0); MEAN CORPUSCULAR HGB CONC 33.3 g/dL (33.0-37.0); RBC 3.73 Mil/uL (4.40-5.90); RED CELL DISTRIBUTION WIDTH 17.1 % (11.5-14.5); WHITE BLOOD COUNT 8.8 K/uL (4.8-10.8)
[2018-06-24 06:20] LABS: CALCIUM 8.7 mg/dL (8.4-10.2)
[2018-06-24] MEDS ORDERED: Albuterol 0.083% Inhal Sol (2.5 mg/3 mL) UD INH ONE (08:57)
--- NOTE | 2018-06-24 09:11 | CP.PCM.PN ---
Subjective - Date & Time of Evaluation Date of Evaluation: 06/24/18 Time of Evaluation: 08:30 - Subjective Subjective: GI Fellow PGY5 Progress Note Pt seen and examined at bedside, pt is still delirious, screaming, disoriented, unable to answer questions. Received ativan overnight, in restraints. No abdominal pain on exam. ROS: A 12pt ROS was unable to be obtained due to AMS. Objective - Vital Signs/Intake and Output Vital Signs (last 24 hours): Temp Pulse Resp BP Pulse Ox 98.3 F 110 H 37 H 167/76 H 96 06/24/18 08:00 06/24/18 08:00 06/24/18 08:00 06/24/18 08:00 06/24/18 08:00 Intake and Output: 06/24/18 06/24/18 06:59 18:59 Intake Total 414 Output Total 350 Balance 64 - Medications Medications: Current Medications Acetaminophen (Tylenol 325mg Tab) 650 mg PO Q6 PRN PRN Reason: Headache Last Admin: 06/20/18 01:26 Dose: 650 mg Aspirin (Aspirin Chewable) 81 mg PO DAILY [facility] Last Admin: 06/23/18 10:12 Dose: Not Given Furosemide (Lasix) 40 mg IVP BID [facility] Last Admin: 06/23/18 18:33 Dose: 40 mg Guaifenesin (Robitussin) 100 mg PO Q4 PRN PRN Reason: Cough Last Admin: 06/20/18 23:55 Dose: 100 mg Haloperidol Lactate (Haldol) 5 mg IVP Q6 PRN PRN Reason: Agitation Last Admin: 06/24/18 01:46 Dose: 5 mg Piperacillin Sod/Tazobactam (Sod 2.25 gm/ Sodium Chloride) 100 mls @ 100 mls/hr IVPB Q6 [facility]; Protocol Last Admin: 06/24/18 00:27 Dose: 100 mls/hr Vancomycin HCl 1 gm/ Sodium (Chloride) 250 mls @ 125 mls/hr IVPB Q48H [facility]; Protocol Last Admin: 06/23/18 15:48 Dose: Not Given Micafungin Sodium 100 mg/ (Sodium Chloride) 100 mls @ 100 mls/hr IVPB DAILY [facility]; Protocol Last Admin: 06/23/18 15:49 Dose: 100 mls/hr Dexmedetomidine HCl 400 mcg/ (Sodium Chloride) 100 mls @ 3.86 mls/hr IV .Q24H [facility]; Protocol Stop: 06/24/18 14:25 Last Titration: 06/23/18 16:30 Dose: 0 mcg/kg/hr, 0 mls/hr Ipratropium [place] (Atrovent) 0.5 mg IH RQ4 [facility] Last Admin: 06/24/18 07:59 Dose: 0.5 mg Levalbuterol HCl (Xopenex) 1.25 mg INH RQ2 PRN PRN Reason: Shortness of Breath Last Admin: 06/20/18 10:03 Dose: 1.25 mg Levalbuterol HCl (Xopenex) 1.25 mg INH RQ4 [facility] Last Admin: 06/24/18 07:59 Dose: 1.25 mg Lorazepam (Ativan) 1 mg IVP Q6 PRN PRN Reason: Agitation Last Admin: 06/24/18 00:24 Dose: 1 mg Methylprednisolone (Solu-Medrol) 40 mg IVP Q12 [facility] Last Admin: 06/23/18 21:41 Dose: 40 mg Metoprolol Tartrate (Lopressor) 50 mg PO Q12 [facility] Last Admin: 06/23/18 22:40 Dose: Not Given Morphine Sulfate (Morphine) 4 mg IVP Q4 PRN PRN Reason: Pain, moderate (4-7) Last Admin: 06/23/18 22:44 Dose: 4 mg Ondansetron HCl (Zofran Inj) 4 mg IVP Q6 PRN PRN Reason: Nausea/Vomiting Last Admin: 06/20/18 01:57 Dose: 4 mg Pantoprazole Sodium (Protonix Inj) 40 mg IVP DAILY [facility] Last Admin: 06/23/18 10:17 Dose: 40 mg - Labs Labs: 06/24/18 04:20 06/24/18 04:20 PT 14.4 Seconds (9.8-13.1) H 06/18/18 12:50 INR 1.3 06/18/18 12:50 - Constitutional Appears: Toxic, In Acute Distress, Agitated, Confused, Chronically Ill - Head Exam Head Exam: ATRAUMATIC, NORMAL INSPECTION, NORMOCEPHALIC - ENT Exam ENT Exam: Mucous Membranes Dry - Neck Exam Neck Exam: Full ROM - Respiratory Exam Respiratory Exam: Rales, Rhonchi - Cardiovascular Exam Cardiovascular Exam: Tachycardia, +S1, +S2 - GI/Abdominal Exam GI & Abdominal Exam: Soft, Normal Bowel Sounds. absent: Distended, Firm, Guarding, Tenderness - Rectal Exam Rectal Exam: Deferred - Extremities Exam Extremities Exam: Full ROM - Psychiatric Exam Psychiatric exam: Agitated - Skin Skin Exam: Dry, Erythema, Intact, Petechiae, Rash, Warm Assessment and Plan - Assessment and Plan (Free Text) Assessment: 1. Elevated LFTs 2. PNA 3. VDRF s/p extubation 4. COPD Exacerbation 5. Myelodysplastic Syndrome with Pancytopenia 6. ARF s/p HD 7. Delirium 8. AECHF 9. Elevated troponin Plan: -Continue supportive care in ICU -Elevated LFTs likely from Drug induced liver injury while on abx and congestive hepatopathy with CHF -Monitor LFTS and INR pending for today -Abd US to evaluate liver pending -Hepatitis profile negative -Optimize cardiac function and fluid status -Test for legionella since levated LFTs -Recommend changing abx to less hepatotoxic agent, pt is currently on Zosyn which can cause elevated LFTs -Transfuse as needed for MDS, hematology following -Will continue to follow pt
[2018-06-24 09:19] LABS: INR 2.3
[2018-06-24 09:30] LABS: ALB/GLOB RATIO 0.8 (1.0-2.1); ALBUMIN 3.3 g/dL (3.5-5.0); BILIRUBIN,DIRECT 3.2 mg/ml (0.0-0.4)
[2018-06-24] MEDS: Micafungin 100 MG in Sodium Chloride 0.9% 100 ML IVPB SCH (09:46)
[2018-06-24] MEDS: MethylPREDNISolone 40 mg Vial IVP SCH ×2 (09:47→21:07)
--- NOTE | 2018-06-24 09:51 | CP.PCM.PN ---
Subjective - Date & Time of Evaluation Date of Evaluation: 06/24/18 Time of Evaluation: 09:49 - Subjective Subjective: Mr. Farmer is 78 yo wm with pmh/o MDS, cad, s/p CABG about 15 yrs ago, hypothyroidism, CHF, COPD was admitted to [facility] for about 2 months as per pt's family. who discharged about 2 weks ago was presented to ER on with cc/o severe cough, sob, cough associated with yellow sputum for few days. s/p [employer], pt was transferred to iCU. renal consult is requested for worsening renal function since admission, pt was in resp. distress and intubated on 06/20/2018, pt also developed met. acidosis, res p.acidosis and severe hyperkalemia, s/p rt FV catheter placement by icu attending s/p HD x2 on thursday and thursday, then pt fulled out his fv catheter. pt is confused, agitated and pt's renal function is deteriorating with hyperkalemia pt will benfit from continuation of hemodialysis, pt will need dialysis catheter/ perma cath. As per icu team pt doesn't have NOK. pt is very confused. Agree with icu attending for HD and catheter placement,benefits outweigh the risks Objective - Vital Signs/Intake and Output Vital Signs (last 24 hours): Temp Pulse Resp BP Pulse Ox 98.3 F 105 H 37 H 145/75 96 06/24/18 08:00 06/24/18 09:46 06/24/18 08:00 06/24/18 09:46 06/24/18 08:00 Intake and Output: 06/24/18 06/24/18 06:59 18:59 Intake Total 414 Output Total 350 Balance 64 - Medications Medications: Current Medications Acetaminophen (Tylenol 325mg Tab) 650 mg PO Q6 PRN PRN Reason: Headache Last Admin: 06/20/18 01:26 Dose: 650 mg Aspirin (Aspirin Chewable) 81 mg PO DAILY [facility] Last Admin: 06/23/18 10:12 Dose: Not Given Furosemide (Lasix) 40 mg IVP BID [facility] Last Admin: 06/24/18 09:45 Dose: Not Given Guaifenesin (Robitussin) 100 mg PO Q4 PRN PRN Reason: Cough Last Admin: 06/20/18 23:55 Dose: 100 mg Haloperidol Lactate (Haldol) 5 mg IVP Q6 PRN PRN Reason: Agitation Last Admin: 06/24/18 01:46 Dose: 5 mg Piperacillin Sod/Tazobactam (Sod 2.25 gm/ Sodium Chloride) 100 mls @ 100 mls/hr IVPB Q6 [facility]; Protocol Last Admin: 06/24/18 09:47 Dose: Not Given Vancomycin HCl 1 gm/ Sodium (Chloride) 250 mls @ 125 mls/hr IVPB Q48H [facility]; Protocol Last Admin: 06/23/18 15:48 Dose: Not Given Micafungin Sodium 100 mg/ (Sodium Chloride) 100 mls @ 100 mls/hr IVPB DAILY [facility]; Protocol Last Admin: 06/24/18 09:46 Dose: Not Given Dexmedetomidine HCl 400 mcg/ (Sodium Chloride) 100 mls @ 3.86 mls/hr IV .Q24H [facility]; Protocol Stop: 06/24/18 14:25 Last Titration: 06/23/18 16:30 Dose: 0 mcg/kg/hr, 0 mls/hr Ipratropium [place] (Atrovent) 0.5 mg IH RQ4 [facility] Last Admin: 06/24/18 07:59 Dose: 0.5 mg Levalbuterol HCl (Xopenex) 1.25 mg INH RQ2 PRN PRN Reason: Shortness of Breath Last Admin: 06/20/18 10:03 Dose: 1.25 mg Levalbuterol HCl (Xopenex) 1.25 mg INH RQ4 [facility] Last Admin: 06/24/18 07:59 Dose: 1.25 mg Lorazepam (Ativan) 1 mg IVP Q6 PRN PRN Reason: Agitation Last Admin: 06/24/18 00:24 Dose: 1 mg Methylprednisolone (Solu-Medrol) 40 mg IVP Q12 [facility] Last Admin: 06/24/18 09:47 Dose: Not Given Metoprolol Tartrate (Lopressor) 50 mg PO Q12 [facility] Last Admin: 06/24/18 09:46 Dose: Not Given Morphine Sulfate (Morphine) 4 mg IVP Q4 PRN PRN Reason: Pain, moderate (4-7) Last Admin: 06/23/18 22:44 Dose: 4 mg Ondansetron HCl (Zofran Inj) 4 mg IVP Q6 PRN PRN Reason: Nausea/Vomiting Last Admin: 06/20/18 01:57 Dose: 4 mg Pantoprazole Sodium (Protonix Inj) 40 mg IVP DAILY [facility] Last Admin: 06/24/18 09:47 Dose: Not Given - Labs Labs: 06/24/18 04:20 06/24/18 04:20 PT 26.0 Seconds (9.8-13.1) H 06/24/18 09:10 INR 2.3 06/24/18 09:10 - Constitutional Appears: Non-toxic, Agitated, Confused, Chronically Ill - Head Exam Head Exam: ATRAUMATIC, NORMOCEPHALIC - Eye Exam Eye Exam: EOMI, Normal appearance, PERRL Pupil Exam: NORMAL ACCOMODATION - ENT Exam ENT Exam: Mucous Membranes Moist, Normal Exam - Neck Exam Neck Exam: Full ROM, Normal Inspection - Respiratory Exam Respiratory Exam: Clear to Ausculation Bilateral, NORMAL BREATHING PATTERN - GI/Abdominal Exam GI & Abdominal Exam: Soft, Normal Bowel Sounds - Rectal Exam Rectal Exam: Deferred - Extremities Exam Extremities Exam: Normal Inspection - Neurological Exam Neurological Exam: Altered Additional comments: confused, agitated, restless, moving all extremities, - Skin Skin Exam: Normal Color, Warm Assessment and Plan - Assessment and Plan (Free Text) Assessment: Mr. Farmer is 78 yo wm with pmh/o MDS, cad, s/p CABG about 15 yrs ago, hypothyroidism, CHF, COPD was admitted to [facility] for about 2 months as per pt's family. who discharged about 2 weks ago was presedted to ER on with cc/o severe cough, sob, cough [id number] yellow sputum for few days. s/p intubation with worsening renal function , hyperkalemia 1. ROSE on ckd-4 2. s/p Hyperkalemia 3. Acute resp. failure 4. s/p intubation 5. Acute exaccerbation of COPD 6. MDS 7. Anemia 8. Thrombocytopenia s/p Rt fv catheter placement, s/p hd thursday and thursday s/p transfusion of 2 units PRBC during HD on thursday d/w ICU attending in rounds renal is deteriorating with hyperkalemia, as per social service unable to reach any family, no numbers are available, the person who was listed in the chart is not a blood relative, ? friend, no NOK at this time pt will benfit from hemodialysis and catheter placement will schedule for hd after catheter placement, d/w DR Yamileth Meng d/w socail service Ms. Travis in rounds
--- NOTE | 2018-06-24 10:23 | CP.PCM.PN ---
Subjective - Date & Time of Evaluation Date of Evaluation: 06/24/18 Time of Evaluation: 10:15 - Subjective Subjective: Pt is extremely demented. He pulled out his iv, and inspite of him receiving Ativan and Morphine he shouts out almost all day and night. He his WBC and hgb are in the normal range but platelets were low yesterday and after transfusion o f 1 unit of platelets the count today is 53K. He needs a PICC line and since the BUN/Creat have increased as well.will also need a shunt for dialysis.If the IR radiologist needs a higher platelet count, will give another platelet transfusion. Objective - Vital Signs/Intake and Output Vital Signs (last 24 hours): Temp Pulse Resp BP Pulse Ox 98.3 F 104 H 37 H 154/83 H 95 06/24/18 08:00 06/24/18 10:00 06/24/18 10:00 06/24/18 10:00 06/24/18 10:00 Intake and Output: 06/24/18 06/24/18 06:59 18:59 Intake Total 414 Output Total 350 Balance 64 - Medications Medications: Current Medications Acetaminophen (Tylenol 325mg Tab) 650 mg PO Q6 PRN PRN Reason: Headache Last Admin: 06/20/18 01:26 Dose: 650 mg Aspirin (Aspirin Chewable) 81 mg PO DAILY [facility] Last Admin: 06/23/18 10:12 Dose: Not Given Furosemide (Lasix) 40 mg IVP BID [facility] Last Admin: 06/24/18 09:45 Dose: Not Given Guaifenesin (Robitussin) 100 mg PO Q4 PRN PRN Reason: Cough Last Admin: 06/20/18 23:55 Dose: 100 mg Haloperidol Lactate (Haldol) 5 mg IVP Q6 PRN PRN Reason: Agitation Last Admin: 06/24/18 01:46 Dose: 5 mg Piperacillin Sod/Tazobactam (Sod 2.25 gm/ Sodium Chloride) 100 mls @ 100 mls/hr IVPB Q6 [facility]; Protocol Last Admin: 06/24/18 09:47 Dose: Not Given Vancomycin HCl 1 gm/ Sodium (Chloride) 250 mls @ 125 mls/hr IVPB Q48H [facility]; Protocol Last Admin: 06/23/18 15:48 Dose: Not Given Micafungin Sodium 100 mg/ (Sodium Chloride) 100 mls @ 100 mls/hr IVPB DAILY [facility]; Protocol Last Admin: 06/24/18 09:46 Dose: Not Given Dexmedetomidine HCl 400 mcg/ (Sodium Chloride) 100 mls @ 3.86 mls/hr IV .Q24H [facility]; Protocol Stop: 06/24/18 14:25 Last Titration: 06/23/18 16:30 Dose: 0 mcg/kg/hr, 0 mls/hr Ipratropium [place] (Atrovent) 0.5 mg IH RQ4 [facility] Last Admin: 06/24/18 07:59 Dose: 0.5 mg Levalbuterol HCl (Xopenex) 1.25 mg INH RQ2 PRN PRN Reason: Shortness of Breath Last Admin: 06/20/18 10:03 Dose: 1.25 mg Levalbuterol HCl (Xopenex) 1.25 mg INH RQ4 [facility] Last Admin: 06/24/18 07:59 Dose: 1.25 mg Lorazepam (Ativan) 1 mg IVP Q6 PRN PRN Reason: Agitation Last Admin: 06/24/18 00:24 Dose: 1 mg Methylprednisolone (Solu-Medrol) 40 mg IVP Q12 [facility] Last Admin: 06/24/18 09:47 Dose: Not Given Metoprolol Tartrate (Lopressor) 50 mg PO Q12 [facility] Last Admin: 06/24/18 09:46 Dose: Not Given Morphine Sulfate (Morphine) 4 mg IVP Q4 PRN PRN Reason: Pain, moderate (4-7) Last Admin: 06/23/18 22:44 Dose: 4 mg Ondansetron HCl (Zofran Inj) 4 mg IVP Q6 PRN PRN Reason: Nausea/Vomiting Last Admin: 06/20/18 01:57 Dose: 4 mg Pantoprazole Sodium (Protonix Inj) 40 mg IVP DAILY [facility] Last Admin: 06/24/18 09:47 Dose: Not Given - Labs Labs: 06/24/18 04:20 06/24/18 04:20 PT 26.0 Seconds (9.8-13.1) H 06/24/18 09:10 INR 2.3 06/24/18 09:10
[2018-06-24] MEDS ORDERED: Lidocaine 1% 5ml Abboject ONE (11:38)
--- NOTE | 2018-06-24 11:44 | CP.CCUPN ---
CCU Subjective - Physician Review Subjective (Free Text): Still extremely agitated and now non-verbal with rhythmic moaning with each breath, yet he does not appear distressed, diaphoretic, nor does he show any labored breathing. Recd 1 unit of platelets overnight. Continued on 1:1 supervision this AM for patients safety. Other vitals and I/O's reviewed. No fever spikes last 24H, approx. 600 ml urine output overnight. Placed on nasal cannula and SPO2 99-100^%. ROS: No other pertinent negs or positives on 10+ system review- unobtainable due to agitation. PMSFH: All other Nursing and physician documentation reviewed to date; no new pertinent info noted relevant to current medical problems. EXAM- HEENT: no icterus, no gaze preference, Pupils 3 mm and reactive. NECK: No JVD visible, supple, carotids equal upstroke bilat/no bruit CHEST: clear bilateral BS , no wheezes audible HEART: regular, distant, tachy S1S2, no rubs ABD: softly and nontender, no guarding, no organomegaly, BS hypoactive. EXT: +1 edema, no calf tenderness or palpable cords, distal pulses intact and symmetrical. NEURO: no focal motor deficits. SKIN: no rashes, warm and dry LABS: WBC= 8.8 HGB= 11.2 PLTs= 53K INR= 2.3 7.30/49/408 yesterday Na= 141 K= 5.8 CL= 101 HCO3= 22 BUN/Cr= 75/4.0 BS= 98 Vanco random level= 18 AST= 689 (increased) to 1678 ALT= 819 (increased) to 1832 Alk Phos = 66 IMPRESSION / MAJOR PROBLEMS NOW: 1. Delirium 2. s/p Acute Hypoxemic Resp failure, self extubated 2 days ago, after 3 days on MV. 3. Bilateral PNA, was d/edison on VFend from [facility], now on Shellie/ Zosyn/ Vanco 4. CHF 2 DDysfx and Pulm edema from Acute Renal failure 5. Pancytopenia / MDS PLAN: 1. PRN anxiolysis, Get OOB as tolerated. As more anxiolytics are used to control psychomotor agitation and delirium, it may result in the need for airway protection and subsequent re-intubation with MV support. 2. Needs PICC line. Nephrology now requesting re-placement of temp dialysis catheter. Interim multiple Albuterol nebs given for now, no malignant arrthymias noted so far. 3. LFTs higher, GI eval reviewed. 4. No evidence of any acute bleeding, but may need more platelets for any invasive procedure ( PICC) today. Discussed with Heme-Onc. 5. No known official health Care proxy. Discussed with PMD, and Nephro, will need physician documentation noting life-threatening disease and emergent need for invasive lines for IV access, hemodialysis and hemodynamic monitoring. Social Work Dept notes that he has been estranged from family for the past 12 years, and progressive Dementia had been documented during last hospitalization at [facility]. He remains full Code status. CCU Objective - Vital Signs / Intake & Output Vital Signs (Last 4 hours): Vital Signs Temp Pulse Resp BP Pulse Ox 06/24/18 10:00 104 H 37 H 154/83 H 95 06/24/18 09:46 105 H 145/75 06/24/18 08:00 98.3 F 110 H 37 H 167/76 H 96 Intake and Output (Last 8hrs): Intake & Output 06/23/18 06/24/18 06/24/18 22:59 06:59 14:59 Intake Total 200 414 Output Total 450 150 Balance -250 264 Intake: IV 0 Intake, Piggyback 200 Blood Product 0 414 Apheresis Plts Acda Lr 0 199 Irr 3rd Unit [id number] Albumin 0 Free Water Flush 0 Output: Urine 450 150 Straight 200 Urethral (Rosas) 250 150
--- NOTE | 2018-06-24 12:37 | PCM.SURG1 ---
Surgeon's Initial Post Op Note - Surgeon's Notes Surgeon: aDvid Jaramillo MD Linotype Mechanic: NONE Type of Anesthesia: Local Pre-Operative Diagnosis: Renal failure, poor venous access Operative Findings: US showed patent right brachial vein, PATENT right IJV Post-Operative Diagnosis: Renal failure, poor venous access Operation Performed: Double lumen picc right arm 43 cm. Temporary HD catheter right IJV, 15 cm. Specimen/Specimens Removed: None Estimated Blood Loss: EBL {In ML}: 5 Blood Products Given: N/A Drains Used: No Drains Post-Op Condition: Poor Date of Surgery/Procedure: 06/24/18 Time of Surgery/Procedure: 12:30
--- NOTE | 2018-06-24 12:53 | CP.PCM.PN ---
Subjective - Date & Time of Evaluation Date of Evaluation: 06/24/18 Time of Evaluation: 12:53 - Subjective Subjective: Patient seen and examined this morning in ICU, nonverbal, agitated, uncooperative with exam Afebrile, no sob or chest pain appreciated. For PICC line today. VSS Objective - Vital Signs/Intake and Output Vital Signs (last 24 hours): Temp Pulse Resp BP Pulse Ox 99.2 F 105 H 20 137/72 98 06/24/18 12:03 06/24/18 12:03 06/24/18 12:03 06/24/18 12:03 06/24/18 12:03 Intake and Output: 06/24/18 06/24/18 06:59 18:59 Intake Total 414 Output Total 350 Balance 64 - Medications Medications: Current Medications Acetaminophen (Tylenol 325mg Tab) 650 mg PO Q6 PRN PRN Reason: Headache Last Admin: 06/20/18 01:26 Dose: 650 mg Aspirin (Aspirin Chewable) 81 mg PO DAILY [facility] Last Admin: 06/23/18 10:12 Dose: Not Given Furosemide (Lasix) 40 mg IVP BID [facility] Last Admin: 06/24/18 09:45 Dose: Not Given Guaifenesin (Robitussin) 100 mg PO Q4 PRN PRN Reason: Cough Last Admin: 06/20/18 23:55 Dose: 100 mg Haloperidol Lactate (Haldol) 5 mg IVP Q6 PRN PRN Reason: Agitation Last Admin: 06/24/18 01:46 Dose: 5 mg Piperacillin Sod/Tazobactam (Sod 2.25 gm/ Sodium Chloride) 100 mls @ 100 mls/hr IVPB Q6 [facility]; Protocol Last Admin: 06/24/18 09:47 Dose: Not Given Vancomycin HCl 1 gm/ Sodium (Chloride) 250 mls @ 125 mls/hr IVPB Q48H [facility]; Protocol Last Admin: 06/23/18 15:48 Dose: Not Given Micafungin Sodium 100 mg/ (Sodium Chloride) 100 mls @ 100 mls/hr IVPB DAILY [facility]; Protocol Last Admin: 06/24/18 09:46 Dose: Not Given Dexmedetomidine HCl 400 mcg/ (Sodium Chloride) 100 mls @ 3.86 mls/hr IV .Q24H [facility]; Protocol Stop: 06/24/18 14:25 Last Titration: 06/23/18 16:30 Dose: 0 mcg/kg/hr, 0 mls/hr Ipratropium [place] (Atrovent) 0.5 mg IH RQ4 [facility] Last Admin: 06/24/18 11:18 Dose: Not Given Levalbuterol HCl (Xopenex) 1.25 mg INH RQ2 PRN PRN Reason: Shortness of Breath Last Admin: 06/20/18 10:03 Dose: 1.25 mg Levalbuterol HCl (Xopenex) 1.25 mg INH RQ4 [facility] Last Admin: 06/24/18 11:18 Dose: Not Given Lorazepam (Ativan) 1 mg IVP Q6 PRN PRN Reason: Agitation Last Admin: 06/24/18 00:24 Dose: 1 mg Methylprednisolone (Solu-Medrol) 40 mg IVP Q12 [facility] Last Admin: 06/24/18 09:47 Dose: Not Given Metoprolol Tartrate (Lopressor) 50 mg PO Q12 [facility] Last Admin: 06/24/18 09:46 Dose: Not Given Morphine Sulfate (Morphine) 4 mg IVP Q4 PRN PRN Reason: Pain, moderate (4-7) Last Admin: 06/23/18 22:44 Dose: 4 mg Ondansetron HCl (Zofran Inj) 4 mg IVP Q6 PRN PRN Reason: Nausea/Vomiting Last Admin: 06/20/18 01:57 Dose: 4 mg Pantoprazole Sodium (Protonix Inj) 40 mg IVP DAILY [facility] Last Admin: 06/24/18 09:47 Dose: Not Given - Labs Labs: 06/24/18 04:20 06/24/18 04:20 PT 26.0 Seconds (9.8-13.1) H 06/24/18 09:10 INR 2.3 06/24/18 09:10 - Constitutional Appears: No Acute Distress - Head Exam Head Exam: NORMAL INSPECTION - Respiratory Exam Respiratory Exam: Decreased Breath Sounds, Prolonged Expiratory Phase, Rhonchi - Cardiovascular Exam Cardiovascular Exam: Tachycardia, REGULAR RHYTHM - GI/Abdominal Exam GI & Abdominal Exam: Soft. absent: Distended, Tenderness - Extremities Exam Extremities Exam: absent: Calf Tenderness - Neurological Exam Additional comments: Agitated, uncooperative with exam - Skin Skin Exam: Dry, Warm Assessment and Plan - Assessment and Plan (Free Text) Assessment: 78 yo old Male with PMHx of HTN, CKD-4, Myelodysplastic Syndrome, CHF, Asthma and COPD admitted due to worsening SOB with productive cough likely 2/2 to COPD exacerbation. R/O HCAP, unspecified. troponin elevated, no acute EKG changes, likely secondary to renal failure, r/o ACS. Plan: - Double lumen PICC right arm 37 cm. Temporary HD catheter right IJV 15 cm. - hyperkalemia, likely 2/2 to CKD, kayexalate once - MRSA positive - ID on board, recommendations appreciated. - Pulmonology consulted, recommendations appreciated - stable H/H, plt stable, no active bleeding - Cr improving - c/w vanco and zosyn IV - nephro on board, recommendations appreciated - Heme/onco on board, f/u recomm - Continue plan as ordered Case discussed with Dr Howard
[2018-06-24] MEDS ORDERED: Sod Polystyrene Sulf 15 gm/60 ml Susp PO ONE (12:57)
--- NOTE | 2018-06-24 12:59 | VASCULAR ---
PROCEDURE: Date of procedure: 06/24/2018 Procedure: 1. Placement of a right arm PICC with ultrasound and fluoroscopic guidance, CPT 56006 2. PICC tip confirmation with spot radiograph and is in the superior vena cava Medications: 3cc 1 percent lidocaine Total Fluoro time: 14.7 Seconds Radiation: 2.39 MGy EBL: 2 cc HISTORY: Poor venous access TECHNIQUE: Following informed consent and procedure time-out, the patient was placed supine on the interventional table and the right arm prepped and draped in the usual sterile fashion. Ultrasound showed a patent and compressible right brachial vein. After the skin was anesthetized with lidocaine, the brachial vein was accessed with micro micropuncture technique using ultrasound guidance. A guidewire was then advanced under fluoroscopic guidance into the superior vena cava. An image documenting ultrasound guidance for vascular access was permanently saved. The length of the double-lumen 5 Macedonian PICC was trimmed to 37 centimeters and advanced through a peel-away sheath. The PICC was position with tip of PICC confirm a spot radiograph the superior vena cava. The PICC was secured to the patient's skin. The PICC was flushed. A biopatch and sterile dressing was applied. IMPRESSION: Placement of a double-lumen 5 Macedonian PICC trimmed to 35 centimeters via right brachial vein. The tip of the PICC is confirmed with spot radiograph and is in the superior vena cava.
--- NOTE | 2018-06-24 13:00 | VASCULAR ---
PROCEDURE: Date of procedure: 06/24/2017 Procedure: Placement of a non tunneled hemodialysis catheter, CPT 21135 Medications: 6cc 1 percent lidocaine Radiation: 2.26 MGy Fluoro time: 2.3 Seconds Images saved: 2 HISTORY: Renal failure TECHNIQUE: Following informed consent, the patient's right neck was prepped and draped in the usual sterile fashion. Ultrasound showed a patent and compressible right internal jugular vein. After the skin was anesthetized with 3cc 1% lidocaine, the internal jugular vein was accessed under direct ultrasound guidance with micropuncture technique and a guidewire was advanced under fluoroscopic guidance into the SVC. The venotomy was then dilated to accommodate a non tunneled 15 hemodialysis catheter. An image documenting ultrasound guidance for vascular access was permanently saved. The catheter was tested and has adequate blood return for hemodialysis. The catheter was flushed and loaded with heparin per specified amounts. The catheter was secured to patient's skin. A dressing was applied. Post procedure chest x-ray showed a hemodialysis catheter at the caval atrial junction. IMPRESSION: Placement of a non tunneled 15 centimeter hemodialysis catheter via the right internal jugular vein. The tip of the catheter was confirmed with a postoperative chest x-ray and is at the cavoatrial junction. The catheter is functional ready for use.
[2018-06-24] MEDS ORDERED: Chlorhexidine Gluconate 1 APPL/PKT TP ONE (13:18)
[2018-06-24 16:37] LABS: HEPATITIS B SURFACE AG Negative (NEGATIVE)
[2018-06-24 16:42] LABS: HEPATITIS B CORE AB NEGATIVE (NEGATIVE)
[2018-06-24 17:27] LABS: HEPATITIS A IGM NEGATIVE (NEGATIVE)
[2018-06-24 17:37] LABS: HEPATITIS C ANTIBODY NEGATIVE (NEGATIVE)
--- NOTE | 2018-06-24 21:59 | CP.PCM.CON ---
History of Present Illness - History of Present Illness History of Present Illness: This note represents a consult done on Acute Resp Fail COPD Ex. Pna / Sepsis NKDA 2 PPD smoker for 40 years. Quit 20 y ago. Fam Hx Non Cont. VSS Head: neg adeno, pos janki Heart: RRR ns1s2 neg m Lungs Distant BS. Mild exp wheezing no C,C,E Neuro: lethargic 2/2 sedation Plan: Cont supp O2, maintain O2 Sat > 90%. Avoid hyperoxia. Cont NIKOLAY nebulized, steroids with a taper. Cont IV ABX. Monitor WBC#, temp curve, and micro studies. D/C from case. Will f/u with me after d/c. Dr. Garza Past Patient History - Past Medical History & Family History Past Medical History?: Yes - Past Social History Smoking Status: Former Smoker Chewing Tobacco Use: No Cigar Use: No Alcohol: None Drugs: Denies Home Situation {Lives}: With Family - CARDIAC Hx Cardiac Disorders: Yes Hx Congestive Heart Failure: Yes Hx Hypercholesterolemia: Yes Hx Hypertension: Yes - PULMONARY Hx Respiratory Disorders: Yes Hx Asthma: Yes Hx Chronic Obstructive Pulmonary Disease (COPD): Yes Hx Pneumonia: Yes - NEUROLOGICAL Hx Neurological Disorder: No - HEENT Hx HEENT Problems: No - RENAL Hx Chronic Kidney Disease: Yes Hx Renal Failure: Yes - ENDOCRINE/METABOLIC Hx Hypothyroidism: Yes - HEMATOLOGICAL/ONCOLOGICAL Hx Blood Disorders: Yes Hx AIDS: No Hx Anemia: Yes Hx Human Immunodeficiency Virus (HIV): No - INTEGUMENTARY Hx Dermatological Problems: No - MUSCULOSKELETAL/RHEUMATOLOGICAL Hx Musculoskeletal Disorders: Yes Hx Arthritis: Yes Hx Falls: No - GASTROINTESTINAL Hx Gastrointestinal Disorders: No - GENITOURINARY/GYNECOLOGICAL Hx Genitourinary Disorders: Yes Hx Prostate Problems: Yes - PSYCHIATRIC Hx Psychophysiologic Disorder: Yes Hx Anxiety: Yes Hx Substance Use: No - SURGICAL HISTORY Hx Surgeries: Yes Hx Coronary Artery Bypass Graft: Yes Hx Coronary Stent: Yes - ANESTHESIA Hx Anesthesia: Yes Hx Anesthesia Reactions: No Hx Malignant Hyperthermia: No Has any member of the family had a problem w/ anesthesia?: No Meds Allergies/Adverse Reactions: Allergies Allergy/AdvReac Type Severity Reaction Status Date / Time No Known Allergies Allergy Verified 03/18/18 18:25 - Medications Medications: Current Medications Acetaminophen (Tylenol 325mg Tab) 650 mg PO Q6 PRN PRN Reason: Headache Last Admin: 06/20/18 01:26 Dose: 650 mg Aspirin (Aspirin Chewable) 81 mg PO DAILY [facility] Last Admin: 06/23/18 10:12 Dose: Not Given Furosemide (Lasix) 40 mg IVP BID [facility] Last Admin: 06/24/18 17:42 Dose: Not Given Guaifenesin (Robitussin) 100 mg PO Q4 PRN PRN Reason: Cough Last Admin: 06/20/18 23:55 Dose: 100 mg Haloperidol Lactate (Haldol) 5 mg IVP Q6 PRN PRN Reason: Agitation Last Admin: 06/24/18 15:47 Dose: 5 mg Piperacillin Sod/Tazobactam (Sod 2.25 gm/ Sodium Chloride) 100 mls @ 100 mls/hr IVPB Q6 [facility]; Protocol Last Admin: 06/24/18 21:08 Dose: 100 mls/hr Vancomycin HCl 1 gm/ Sodium (Chloride) 250 mls @ 125 mls/hr IVPB Q48H [facility]; Protocol Last Admin: 06/23/18 15:48 Dose: Not Given Micafungin Sodium 100 mg/ (Sodium Chloride) 100 mls @ 100 mls/hr IVPB DAILY [facility]; Protocol Last Admin: 06/24/18 09:46 Dose: Not Given Ipratropium [place] (Atrovent) 0.5 mg IH RQ4 [facility] Last Admin: 06/24/18 19:58 Dose: 0.5 mg Levalbuterol HCl (Xopenex) 1.25 mg INH RQ2 PRN PRN Reason: Shortness of Breath Last Admin: 06/20/18 10:03 Dose: 1.25 mg Levalbuterol HCl (Xopenex) 1.25 mg INH RQ4 [facility] Last Admin: 06/24/18 19:58 Dose: 1.25 mg Lorazepam (Ativan) 1 mg IVP Q6 PRN PRN Reason: Agitation Last Admin: 06/24/18 18:23 Dose: 1 mg Methylprednisolone (Solu-Medrol) 40 mg IVP Q12 [facility] Last Admin: 06/24/18 21:07 Dose: 40 mg Metoprolol Tartrate (Lopressor) 50 mg PO Q12 [facility] Last Admin: 06/24/18 21:07 Dose: Not Given Morphine Sulfate (Morphine) 4 mg IVP Q4 PRN PRN Reason: Pain, moderate (4-7) Last Admin: 06/24/18 21:16 Dose: 4 mg Ondansetron HCl (Zofran Inj) 4 mg IVP Q6 PRN PRN Reason: Nausea/Vomiting Last Admin: 06/20/18 01:57 Dose: 4 mg Pantoprazole Sodium (Protonix Inj) 40 mg IVP DAILY [facility] Last Admin: 06/24/18 09:47 Dose: Not Given Results - Vital Signs Recent Vital Signs: Last Vital Signs Temp 97.9 F 06/24/18 20:00 Pulse 110 H 06/24/18 20:00 Resp 18 06/24/18 20:00 BP 137/77 06/24/18 20:00 Pulse Ox 100 06/24/18 20:00 - Labs Result Diagrams: 06/24/18 04:20 06/24/18 04:20 Labs: Laboratory Results - last 24 hr 06/21/18 06/24/18 06/24/18 10:10 04:20 04:20 WBC RBC Hgb Hct MCV MCH MCHC RDW Plt Count PT INR Sodium Potassium Chloride Carbon Dioxide Anion Gap BUN Creatinine Est GFR ( Amer) Est GFR (Non-Af Amer) Random Glucose Calcium Total Bilirubin Direct Bilirubin AST ALT Alkaline Phosphatase Total Protein Albumin Globulin Albumin/Globulin Ratio Random Vancomycin 18.0 Hepatitis A IgM Ab Hep Bs Antigen Hep B Core IgM Ab Hepatitis C Antibody HIV 1&2 Antibody Screen Negative Ur L.pneumophila Ag Crossmatch See Detail 06/24/18 06/24/18 06/24/18 04:20 04:20 04:20 WBC 8.8 D RBC 3.73 L Hgb 11.2 L Hct 33.7 L MCV 90.3 D MCH 30.0 MCHC 33.3 RDW 17.1 H Plt Count 53 L D PT INR Sodium 141 Potassium 5.8 H Chloride 101 Carbon Dioxide 22 Anion Gap 24 H BUN 75 H Creatinine 4.0 H Est GFR ( Amer) 18 Est GFR (Non-Af Amer) 15 Random Glucose 98 Calcium 8.7 Total Bilirubin Direct Bilirubin AST ALT Alkaline Phosphatase Total Protein Albumin Globulin Albumin/Globulin Ratio Random Vancomycin Hepatitis A IgM Ab Negative Hep Bs Antigen Negative Hep B Core IgM Ab Negative Hepatitis C Antibody Negative HIV 1&2 Antibody Screen Ur L.pneumophila Ag Crossmatch 06/24/18 06/24/18 06/24/18 09:10 09:10 14:49 WBC RBC Hgb Hct MCV MCH MCHC RDW Plt Count PT 26.0 H INR 2.3 Sodium Potassium Chloride Carbon Dioxide Anion Gap BUN Creatinine Est GFR ( Amer) Est GFR (Non-Af Amer) Random Glucose Calcium Total Bilirubin 3.6 H Direct Bilirubin 3.2 H AST 1678 H ALT 1832 H Alkaline Phosphatase 66 Total Protein 7.4 Albumin 3.3 L Globulin 4.1 H Albumin/Globulin Ratio 0.8 L Random Vancomycin Hepatitis A IgM Ab Hep Bs Antigen Hep B Core IgM Ab Hepatitis C Antibody HIV 1&2 Antibody Screen Ur L.pneumophila Ag Negative Crossmatch
[2018-06-25] MEDS: Levalbuterol 1.25 MG/3 ML Inhal Soln UD INH SCH ×6 (05:10→23:26)
[2018-06-25] MEDS: Ipratropium 0.02% Inhal Soln (0.5 mg/2.5 ml) UD IH SCH ×6 (05:10→23:27)
[2018-06-25 05:55] LABS: BASO % 0.3 % (0.0-2.0); HEMOGLOBIN 8.9 g/dL (12.0-18.0); LYMPH # 0.2 K/uL (1.0-4.3); LYMPH % 6.3 % (20.0-40.0); MEAN CELL VOLUME 88.9 fl (80.0-94.0); MEAN CORPUSCULAR HEMOGLOBIN 30.5 pg (27.0-31.0); MEAN CORPUSCULAR HGB CONC 34.3 g/dL (33.0-37.0); MEAN PLATELET VOLUME 10.3 fl (7.2-11.7); MONO % 1.4 % (0.0-10.0); NEUT # 2.8 K/uL (1.8-7.0); NRBC % 0.1 % (0.0-0.0); RBC 2.93 Mil/uL (4.40-5.90); RED CELL DISTRIBUTION WIDTH 16.8 % (11.5-14.5)
[2018-06-25 06:02] LABS: PLATELET COUNT 17 K/uL (130-400)
[2018-06-25 06:03] LABS: ALB/GLOB RATIO 0.7 (1.0-2.1); BILIRUBIN,DIRECT 2.6 mg/ml (0.0-0.4)
[2018-06-25 06:43] LABS: ALB/GLOB RATIO 0.7 (1.0-2.1); ALBUMIN 2.9 g/dL (3.5-5.0); CALCIUM 8.3 mg/dL (8.4-10.2)
[2018-06-25 09:17] LABS: EOSINOPHIL 1 % (0-7); LYMPHOCYTE 8 % (20-50); MONOCYTE 4 % (0-10); NEUTROPHIL 87 % (42-75); PLATELET ESTIMATE MARKEDLY DECREASED (NORMAL); TOTAL CELLS COUNTED 100
[2018-06-25 09:18] LABS: ANISOCYTOSIS SLIGHT; LARGE PLATELETS PRESENT; MICROCYTOSIS SLIGHT; OVALOCYTES MODERATE; TEARDROP CELLS SLIGHT
[2018-06-25] MEDS ORDERED: Lactulose 10 gm/15 ml (Rectal Use) PR ONE (09:45)
[2018-06-25] MEDS: Micafungin 100 MG in Sodium Chloride 0.9% 100 ML IVPB SCH (09:53)
[2018-06-25] MEDS: MethylPREDNISolone 40 mg Vial IVP SCH (09:55)
--- NOTE | 2018-06-25 10:11 | CP.CCUPN ---
CCU Subjective - Physician Review Subjective (Free Text): Still intermittently agitated, non-verbal with rhythmic moaning with each breath, but does not appear distressed, diaphoretic, nor does he show any labored breathing. Underwent HD yesterday with 1 L/ fluid removal. otherwise oliguric. Continued on 1:1 supervision this AM for patients safety. Other vitals and I/O's reviewed. No fever spikes last 24H, on nasal cannula and SPO2 99-100^%. ROS: No other pertinent negs or positives on 10+ system review- unobtainable due to agitation. PMSFH: All other Nursing and physician documentation reviewed to date; no new pertinent info noted relevant to current medical problems. EXAM- HEENT: no icterus, no gaze preference, Pupils 3 mm and reactive. NECK: No JVD visible, supple, carotids equal upstroke bilat/no bruit CHEST: clear bilateral BS , no wheezes audible HEART: regular, distant, tachy S1S2, no rubs ABD: softly and nontender, no guarding, no organomegaly, BS hypoactive. EXT: +1 edema, no calf tenderness or palpable cords, distal pulses intact and symmetrical. NEURO: no focal motor deficits. SKIN: no rashes, warm and dry LABS: WBC= 3.0 HGB= 8.9 PLTs= 17K INR= 2.3 yesterday Na= 140 K= 4.8 CL= 101 HCO3= 30 BUN/Cr= 60/3.1 BS= 119 Vanco random level= 18 AST= (increased) to 6378 ALT= (increased) to 5224 Alk Phos = normal TBili= 3.3 IMPRESSION / MAJOR PROBLEMS NOW: 1. Delirium 2. s/p Acute Hypoxemic Resp failure, self extubated 2 days ago, after 3 day s on MV. 3. Bilateral PNA, was d/edison on VFend from [facility], now on Shellie/ Zosyn/ Vanco 4. CHF 2 DDysfx and Pulm edema from Acute Renal failure 5. Pancytopenia / MDS PLAN: 1. 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 Have reqested Aspergillus serum testing here, no sputum cx were obtained when he was intubated. Consider resuming Voriconazole given ex[ected long duration of therapy for this fungal organism. Will need to consoder CT Chest to further evaluate for infiltraes. Unclear if there is dissemination of disease now?? ID and Pulm f/u. 2. LFTs higher, GI eval reviewed. 3. No evidence of any acute bleeding, but may need more platelets, to prevent any spontaneous bleed, INR was elevated from yesterday, will discuss with Heme- Onc. 4. Further HD as per Nephro. Will continue interim Lasix IV (known 25% EF). 5. NGT for meds and enteral nutritional support. 6. Unchanged full Code status. 06/25/18 10:11 CCU Objective - Vital Signs / Intake & Output Vital Signs (Last 4 hours): Vital Signs Temp Pulse Resp BP Pulse Ox 06/25/18 07:48 984 F H 91 H 21 147/77 100 06/25/18 06:00 97 H 18 153/93 H 100 Intake and Output (Last 8hrs): Intake & Output 06/24/18 06/25/18 06/25/18 22:59 06:59 14:59 Intake Total 100 100 Output Total 35 15 Balance 65 85 Intake: IV 100 100 Oral 0 0 Output: Urine 35 15 Urethral (Rosas) 35 15
[2018-06-25] MEDS ORDERED: Chlorhexidine Gluconate 1 APPL/PKT TP ONE ×3 (10:14→23:30)
[2018-06-25 10:20] LABS: INR 2.8; PROTHROMBIN TIME 32.3 Seconds (9.8-13.1)
--- NOTE | 2018-06-25 11:28 | CP.PCM.PN ---
Subjective - Date & Time of Evaluation Date of Evaluation: 06/25/18 Time of Evaluation: 08:31 - Subjective Subjective: Patient seen and examined this morning in ICU, still intermittently agitated, non-verbal but does not appear distressed, no labored breathing. Underwent HD yesterday, afebrile VSS I/O: 200/50 Objective - Vital Signs/Intake and Output Vital Signs (last 24 hours): Temp Pulse Resp BP Pulse Ox 984 F H 91 H 21 135/82 100 06/25/18 07:48 06/25/18 07:48 06/25/18 07:48 06/25/18 09:56 06/25/18 07:48 Intake and Output: 06/25/18 06/25/18 06:59 18:59 Intake Total 200 Output Total 30 Balance 170 - Medications Medications: Current Medications Aspirin (Aspirin Chewable) 81 mg PO DAILY [facility] Last Admin: 06/23/18 10:12 Dose: Not Given Furosemide (Lasix) 40 mg IVP BID [facility] Last Admin: 06/25/18 09:56 Dose: 40 mg Guaifenesin (Robitussin) 100 mg PO Q4 PRN PRN Reason: Cough Last Admin: 06/20/18 23:55 Dose: 100 mg Haloperidol Lactate (Haldol) 5 mg IVP Q6 PRN PRN Reason: Agitation Last Admin: 06/25/18 09:52 Dose: 5 mg Piperacillin Sod/Tazobactam (Sod 2.25 gm/ Sodium Chloride) 100 mls @ 100 mls/hr IVPB Q6 [facility]; Protocol Last Admin: 06/25/18 09:54 Dose: 100 mls/hr Vancomycin HCl 1 gm/ Sodium (Chloride) 250 mls @ 125 mls/hr IVPB Q48H [facility]; Protocol Last Admin: 06/23/18 15:48 Dose: Not Given Micafungin Sodium 100 mg/ (Sodium Chloride) 100 mls @ 100 mls/hr IVPB DAILY [facility]; Protocol Last Admin: 06/25/18 09:53 Dose: 100 mls/hr Phytonadione 10 mg/ Sodium (Chloride) 51 mls @ 102 mls/hr IV ONCE ONE Stop: 06/25/18 11:59 [address] [place] (Atrovent) 0.5 mg IH RQ4 [facility] Last Admin: 06/25/18 07:27 Dose: 0.5 mg Lactulose (Enulose) 20 gm PO Q6 [facility] Levalbuterol HCl (Xopenex) 1.25 mg INH RQ2 PRN PRN Reason: Shortness of Breath Last Admin: 06/20/18 10:03 Dose: 1.25 mg Levalbuterol HCl (Xopenex) 1.25 mg INH RQ4 [facility] Last Admin: 06/25/18 07:27 Dose: 1.25 mg Lorazepam (Ativan) 1 mg IVP Q6 PRN PRN Reason: Agitation Last Admin: 06/25/18 05:39 Dose: 1 mg Methylprednisolone (Solu-Medrol) 40 mg IVP Q12 [facility] Last Admin: 06/25/18 09:55 Dose: 40 mg Metoprolol Tartrate (Lopressor) 50 mg PO Q12 [facility] Last Admin: 06/25/18 09:56 Dose: Not Given Morphine Sulfate (Morphine) 4 mg IVP Q4 PRN PRN Reason: Pain, moderate (4-7) Last Admin: 06/25/18 09:30 Dose: 4 mg Ondansetron HCl (Zofran Inj) 4 mg IVP Q6 PRN PRN Reason: Nausea/Vomiting Last Admin: 06/20/18 01:57 Dose: 4 mg - Labs Labs: 06/25/18 05:00 06/25/18 05:00 PT 32.3 Seconds (9.8-13.1) H D 06/25/18 10:06 INR 2.8 06/25/18 10:06 - Constitutional Appears: No Acute Distress - Head Exam Head Exam: NORMAL INSPECTION - Eye Exam Eye Exam: EOMI, PERRL - Respiratory Exam Respiratory Exam: Clear to Ausculation Bilateral. absent: Rhonchi, Wheezes - Cardiovascular Exam Cardiovascular Exam: Tachycardia, REGULAR RHYTHM, +S1, +S2 - GI/Abdominal Exam GI & Abdominal Exam: Soft. absent: Distended, Tenderness - Extremities Exam Extremities Exam: absent: Calf Tenderness Additional comments: 1+ edema - Neurological Exam Neurological Exam: absent: Motor Sensory Deficit - Skin Skin Exam: Dry, Warm Assessment and Plan - Assessment and Plan (Free Text) Assessment: 78 yo old Male with PMHx of HTN, CKD-4, Myelodysplastic Syndrome, CHF, Asthma and COPD admitted due to worsening SOB with productive cough likely 2/2 to COPD exacerbation. R/O HCAP, unspecified. troponin elevated, no acute EKG changes, likely secondary to renal failure, r/o ACS. Plan: - Double lumen PICC right arm 37 cm. Temporary HD catheter right IJV 15 cm. - hyperkalemia, likely 2/2 to CKD, resolved after HD - MRSA positive - ID on board, recommendations appreciated. - Pulmonology consulted, recommendations appreciated - drop in H/H, no active bleeding, trasnfuse PRN - Cr improving - c/w vanco and zosyn IV - nephro on board, recommendations appreciated, continue with HD - Heme/onco on board, f/u recomm - Continue plan as ordered Case seen and examined with Dr Kern
[2018-06-25] MEDS ORDERED: Phytonadione 10 mg/ml Inj (Adult) IV SCH (11:30)
[2018-06-25] MEDS ORDERED: Phytonadione 10 MG in Sodium Chloride 0.9% 50 ML IV ONE (11:30)
--- NOTE | 2018-06-25 11:50 | CP.PCM.PN ---
Subjective - Date & Time of Evaluation Date of Evaluation: 06/25/18 Time of Evaluation: 11:46 - Subjective Subjective: Pt is afebrile, still very restless and calling out loudly. He had a PICC line placed yesterday, and also had a dialysis done. Today his platelets dropped to 17 and I have ordered a platelet transfusion. Prognosis appears to be poor, Objective - Vital Signs/Intake and Output Vital Signs (last 24 hours): Temp Pulse Resp BP Pulse Ox 984 F H 91 H 21 135/82 100 06/25/18 07:48 06/25/18 07:48 06/25/18 07:48 06/25/18 09:56 06/25/18 07:48 Intake and Output: 06/25/18 06/25/18 06:59 18:59 Intake Total 200 Output Total 30 Balance 170 - Medications Medications: Current Medications Aspirin (Aspirin Chewable) 81 mg PO DAILY [facility] Last Admin: 06/23/18 10:12 Dose: Not Given Furosemide (Lasix) 40 mg IVP BID [facility] Last Admin: 06/25/18 09:56 Dose: 40 mg Guaifenesin (Robitussin) 100 mg PO Q4 PRN PRN Reason: Cough Last Admin: 06/20/18 23:55 Dose: 100 mg Haloperidol Lactate (Haldol) 5 mg IVP Q6 PRN PRN Reason: Agitation Last Admin: 06/25/18 09:52 Dose: 5 mg Piperacillin Sod/Tazobactam (Sod 2.25 gm/ Sodium Chloride) 100 mls @ 100 mls/hr IVPB Q6 [facility]; Protocol Last Admin: 06/25/18 09:54 Dose: 100 mls/hr Vancomycin HCl 1 gm/ Sodium (Chloride) 250 mls @ 125 mls/hr IVPB Q48H [facility]; Protocol Last Admin: 06/23/18 15:48 Dose: Not Given Micafungin Sodium 100 mg/ (Sodium Chloride) 100 mls @ 100 mls/hr IVPB DAILY [facility]; Protocol Last Admin: 06/25/18 09:53 Dose: 100 mls/hr Phytonadione 10 mg/ Sodium (Chloride) 51 mls @ 102 mls/hr IV ONCE ONE Stop: 06/25/18 11:59 Ipratropium [place] (Atrovent) 0.5 mg IH RQ4 [facility] Last Admin: 06/25/18 07:27 Dose: 0.5 mg Lactulose (Enulose) 20 gm PO Q6 [facility] Levalbuterol HCl (Xopenex) 1.25 mg INH RQ2 PRN PRN Reason: Shortness of Breath Last Admin: 06/20/18 10:03 Dose: 1.25 mg Levalbuterol HCl (Xopenex) 1.25 mg INH RQ4 [facility] Last Admin: 06/25/18 07:27 Dose: 1.25 mg Lorazepam (Ativan) 1 mg IVP Q6 PRN PRN Reason: Agitation Last Admin: 06/25/18 05:39 Dose: 1 mg Methylprednisolone (Solu-Medrol) 40 mg IVP Q12 [facility] Last Admin: 06/25/18 09:55 Dose: 40 mg Metoprolol Tartrate (Lopressor) 50 mg PO Q12 [facility] Last Admin: 06/25/18 09:56 Dose: Not Given Morphine Sulfate (Morphine) 4 mg IVP Q4 PRN PRN Reason: Pain, moderate (4-7) Last Admin: 06/25/18 09:30 Dose: 4 mg Ondansetron HCl (Zofran Inj) 4 mg IVP Q6 PRN PRN Reason: Nausea/Vomiting Last Admin: 06/20/18 01:57 Dose: 4 mg - Labs Labs: 06/25/18 05:00 06/25/18 05:00 PT 32.3 Seconds (9.8-13.1) H D 06/25/18 10:06 INR 2.8 06/25/18 10:06
[2018-06-25] MEDS ORDERED: DEXTROSE 5% IVPB ONE ×3 (11:59→17:00)
[2018-06-25] MEDS ORDERED: WATER IVPB ONE ×3 (11:59→17:00)
[2018-06-25] MEDS ORDERED: ACETYLCYSTEINE IVPB ONE ×3 (11:59→17:00)
[2018-06-25] MEDS ORDERED: WATER IVPB STA (11:59)
[2018-06-25] MEDS ORDERED: ACETYLCYSTEINE IVPB STA (11:59)
[2018-06-25] MEDS ORDERED: DEXTROSE 5% IVPB STA (11:59)
--- NOTE | 2018-06-25 12:06 | CP.PCM.PN ---
Subjective - Date & Time of Evaluation Date of Evaluation: 06/25/18 Time of Evaluation: 10:00 - Subjective Subjective: GI Fellow PGY5 Progress Note Pt seen and examined at bedside, pt is still delirious, screaming, disoriented, unable to answer questions. Received ativan overnight, in restraints. No abdominal pain on exam. Per nursing no BM in days. Pt does not have NGT and no nutrition at this time. ROS: A 12pt ROS was unable to be obtained due to AMS. Objective - Vital Signs/Intake and Output Vital Signs (last 24 hours): Temp Pulse Resp BP Pulse Ox 984 F H 91 H 21 135/82 100 06/25/18 07:48 06/25/18 07:48 06/25/18 07:48 06/25/18 09:56 06/25/18 07:48 Intake and Output: 06/25/18 06/25/18 06:59 18:59 Intake Total 200 Output Total 30 Balance 170 - Medications Medications: Current Medications Aspirin (Aspirin Chewable) 81 mg PO DAILY [facility] Last Admin: 06/23/18 10:12 Dose: Not Given Furosemide (Lasix) 40 mg IVP BID [facility] Last Admin: 06/25/18 09:56 Dose: 40 mg Guaifenesin (Robitussin) 100 mg PO Q4 PRN PRN Reason: Cough Last Admin: 06/20/18 23:55 Dose: 100 mg Haloperidol Lactate (Haldol) 5 mg IVP Q6 PRN PRN Reason: Agitation Last Admin: 06/25/18 09:52 Dose: 5 mg Piperacillin Sod/Tazobactam (Sod 2.25 gm/ Sodium Chloride) 100 mls @ 100 mls/hr IVPB Q6 [facility]; Protocol Last Admin: 06/25/18 09:54 Dose: 100 mls/hr Vancomycin HCl 1 gm/ Sodium (Chloride) 250 mls @ 125 mls/hr IVPB Q48H [facility]; Protocol Last Admin: 06/23/18 15:48 Dose: Not Given Micafungin Sodium 100 mg/ (Sodium Chloride) 100 mls @ 100 mls/hr IVPB DAILY [facility]; Protocol Last Admin: 06/25/18 09:53 Dose: 100 mls/hr Acetylcysteine 11,570 mg/ (Dextrose) 257.85 mls @ 200 mls/hr IVPB STAT STA Stop: 06/25/18 13:16 Acetylcysteine 3,860 mg/ (Dextrose) 519.3 mls @ 125 mls/hr IVPB ONCE ONE Stop: 06/25/18 16:08 Acetylcysteine 7,710 mg/ (Dextrose) 1,038.55 mls @ 62.5 mls/hr IVPB ONCE ONE Stop: 06/26/18 04:35 Ipratropium [place] (Atrovent) 0.5 mg IH RQ4 [facility] Last Admin: 06/25/18 11:48 Dose: 0.5 mg Lactulose (Enulose) 20 gm PO Q6 [facility] Levalbuterol HCl (Xopenex) 1.25 mg INH RQ2 PRN PRN Reason: Shortness of Breath Last Admin: 06/20/18 10:03 Dose: 1.25 mg Levalbuterol HCl (Xopenex) 1.25 mg INH RQ4 [facility] Last Admin: 06/25/18 11:48 Dose: 1.25 mg Lorazepam (Ativan) 1 mg IVP Q6 PRN PRN Reason: Agitation Last Admin: 06/25/18 05:39 Dose: 1 mg Methylprednisolone (Solu-Medrol) 40 mg IVP Q12 [facility] Last Admin: 06/25/18 09:55 Dose: 40 mg Metoprolol Tartrate (Lopressor) 50 mg PO Q12 [facility] Last Admin: 06/25/18 09:56 Dose: Not Given Morphine Sulfate (Morphine) 4 mg IVP Q4 PRN PRN Reason: Pain, moderate (4-7) Last Admin: 06/25/18 09:30 Dose: 4 mg Ondansetron HCl (Zofran Inj) 4 mg IVP Q6 PRN PRN Reason: Nausea/Vomiting Last Admin: 06/20/18 01:57 Dose: 4 mg - Labs Labs: 06/25/18 05:00 06/25/18 05:00 PT 32.3 Seconds (9.8-13.1) H D 06/25/18 10:06 INR 2.8 06/25/18 10:06 - Constitutional Appears: Toxic, In Acute Distress, Confused - Head Exam Head Exam: ATRAUMATIC, NORMAL INSPECTION, NORMOCEPHALIC - ENT Exam ENT Exam: Mucous Membranes Dry - Neck Exam Neck Exam: Full ROM - Respiratory Exam Respiratory Exam: Rales, Rhonchi - Cardiovascular Exam Cardiovascular Exam: Tachycardia, +S1, +S2 - GI/Abdominal Exam GI & Abdominal Exam: Soft, Normal Bowel Sounds. absent: Distended, Guarding ( ), Tenderness - Rectal Exam Rectal Exam: Deferred - Extremities Exam Extremities Exam: Full ROM - Psychiatric Exam Psychiatric exam: Agitated - Skin Skin Exam: Dry, Intact, Normal Color, Warm Assessment and Plan - Assessment and Plan (Free Text) Assessment: 1. Acute Liver Failure, elevated LFTs and INR 2. Delirium possible Hepatic encephalopathy 3. VDRF s/p extubation 4. COPD Exacerbation 5. Myelodysplastic Syndrome with Pancytopenia 6. ARF s/p HD 7. PNA 8. AECHF 9. Elevated troponin Plan: -Continue supportive care in ICU -Acute Liver failure with LFTs trending up and increasing Tbili and INR -Elevated LFTs multifactorial from Drug induced liver injury while on abx and congestive hepatopathy with CHF/fluid overload, and well as hypotension with SBP 170s-->115 -Monitor LFTS and INR daily -STAT Abd US to evaluate liver pending -Start STAT IV Vit K 10mg daily for 3 days -Start STAT IV NAC for three doses -Hepatitis profile negative -Check acetaminophen level -Discontinue acetaminophen -Discontinue PPI -Recommend changing abx to less hepatotoxic agent, pt is currently on Zosyn, Steroids, Antifungal which can cause elevated LFTs, DILI -Delirium possible Hepatic encephalopathy in setting of FPC -Insert NGT -Start STAT Lactulose via NGT for 3 BM daily -One time dose of Lactulose per rectum -Recommend CT imaging of head with severe AMS -Nutritional support -Optimize cardiac function and fluid status -Avoid hypotension -Test for legionella since elevated LFTs ws negative -Transfuse as needed for MDS, hematology following -Will continue to follow pt
--- NOTE | 2018-06-25 13:30 | RAD ---
Date of service: 06/25/2018 HISTORY: NGT placement COMPARISON: 06/23/2018 FINDINGS: LUNGS: No active pulmonary disease. PLEURA: No significant pleural effusion identified, no pneumothorax apparent. CARDIOVASCULAR: Mild aortic calcification Mild cardiomegaly OSSEOUS STRUCTURES: Sternal wires VISUALIZED UPPER ABDOMEN: Normal. OTHER FINDINGS: Right-sided central line and dialysis catheter. IMPRESSION: There is no visible nasogastric tube
--- NOTE | 2018-06-25 14:23 | CP.PCM.PN ---
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 at [facility] ordered prognosis grave Objective - Vital Signs/Intake and Output Vital Signs (last 24 hours): Temp Pulse Resp BP Pulse Ox 984 F H 91 H 21 135/82 100 06/25/18 07:48 06/25/18 07:48 06/25/18 07:48 06/25/18 09:56 06/25/18 07:48 Intake and Output: 06/25/18 06/25/18 06:59 18:59 Intake Total 200 Output Total 30 Balance 170 - Medications Medications: Current Medications Aspirin (Aspirin Chewable) 81 mg PO DAILY [facility] Last Admin: 06/23/18 10:12 Dose: Not Given Furosemide (Lasix) 40 mg IVP BID [facility] Last Admin: 06/25/18 09:56 Dose: 40 mg Guaifenesin (Robitussin) 100 mg PO Q4 PRN PRN Reason: Cough Last Admin: 06/20/18 23:55 Dose: 100 mg Haloperidol Lactate (Haldol) 5 mg IVP Q6 PRN PRN Reason: Agitation Last Admin: 06/25/18 09:52 Dose: 5 mg Piperacillin Sod/Tazobactam (Sod 2.25 gm/ Sodium Chloride) 100 mls @ 100 mls/hr IVPB Q6 [facility]; Protocol Last Admin: 06/25/18 09:54 Dose: 100 mls/hr Vancomycin HCl 1 gm/ Sodium (Chloride) 250 mls @ 125 mls/hr IVPB Q48H [facility]; Protocol Last Admin: 06/23/18 15:48 Dose: Not Given Acetylcysteine 3,860 mg/ (Dextrose) 519.3 mls @ 125 mls/hr IVPB ONCE ONE Stop: 06/25/18 17:09 Acetylcysteine 7,710 mg/ (Dextrose) 1,038.55 mls @ 62.5 mls/hr IVPB ONCE ONE Stop: 06/26/18 09:36 Voriconazole 600 mg/ Sodium (Chloride) 250 mls @ 125 mls/hr IVPB Q12 [facility]; Protocol Stop: 06/26/18 10:59 Voriconazole 250 mg/ Sodium (Chloride) 250 mls @ 125 mls/hr IVPB Q12 [facility]; Protocol Stop: 07/07/18 23:59 Ipratropium [place] (Atrovent) 0.5 mg IH RQ4 [facility] Last Admin: 06/25/18 11:48 Dose: 0.5 mg Lactulose (Enulose) 20 gm PO Q6 [facility] Levalbuterol HCl (Xopenex) 1.25 mg INH RQ2 PRN PRN Reason: Shortness of Breath Last Admin: 06/20/18 10:03 Dose: 1.25 mg Levalbuterol HCl (Xopenex) 1.25 mg INH RQ4 [facility] Last Admin: 06/25/18 11:48 Dose: 1.25 mg Lorazepam (Ativan) 1 mg IVP Q6 PRN PRN Reason: Agitation Last Admin: 06/25/18 12:15 Dose: 1 mg Methylprednisolone (Solu-Medrol) 40 mg IVP Q12 [facility] Last Admin: 06/25/18 09:55 Dose: 40 mg Metoprolol Tartrate (Lopressor) 50 mg PO Q12 [facility] Last Admin: 06/25/18 09:56 Dose: Not Given Morphine Sulfate (Morphine) 4 mg IVP Q4 PRN PRN Reason: Pain, moderate (4-7) Last Admin: 06/25/18 09:30 Dose: 4 mg Ondansetron HCl (Zofran Inj) 4 mg IVP Q6 PRN PRN Reason: Nausea/Vomiting Last Admin: 06/20/18 01:57 Dose: 4 mg - Labs Labs: 06/25/18 05:00 06/25/18 05:00 PT 32.3 Seconds (9.8-13.1) H D 06/25/18 10:06 INR 2.8 06/25/18 10:06 - Constitutional Appears: Confused, Chronically Ill - Head Exam Head Exam: NORMOCEPHALIC - Eye Exam Eye Exam: absent: Scleral icterus - ENT Exam ENT Exam: Mucous Membranes Dry - Neck Exam Neck Exam: absent: Lymphadenopathy - Respiratory Exam Respiratory Exam: Decreased Breath Sounds - Cardiovascular Exam Cardiovascular Exam: REGULAR RHYTHM - GI/Abdominal Exam GI & Abdominal Exam: Distended, Soft - Rectal Exam Rectal Exam: Deferred - Exam Exam: NORMAL INSPECTION - Extremities Exam Extremities Exam: Pedal Edema - Back Exam Back Exam: absent: CVA tenderness (L), CVA tenderness (R) - Neurological Exam Neurological Exam: Altered - Psychiatric Exam Psychiatric exam: Depressed - Skin Skin Exam: Dry Assessment and Plan (1) ACS (acute coronary syndrome) Status: Acute (2) Acute respiratory failure with hypoxia Status: Acute (3) COPD (chronic obstructive pulmonary disease) Status: Acute (4) Pneumonia Status: Acute (5) Renal failure (ARF), acute on chronic Status: Acute (6) Myelodysplasia (myelodysplastic syndrome) Status: Chronic - Assessment and Plan (Free Text) Assessment: agitated lft's elevated etiology unclear - serologies neg was being treated for aspergillosis at [facility] ordered prognosis grave
[2018-06-25] MEDS: Cefepime 1 GM in Sodium Chloride 0.9% 100 ML IVPB SCH (16:05)
[2018-06-25] MEDS ORDERED: Lactulose 10 gm/15 ml (Rectal Use) PR SCH (17:00)
[2018-06-25] MEDS: SODIUM CHLORIDE 0.9% IVPB SCH (21:04)
[2018-06-25] MEDS: VORICONAZOLE IVPB SCH (21:04)
[2018-06-26] MEDS: Cefepime 1 GM in Sodium Chloride 0.9% 100 ML IVPB SCH ×3 (00:02→16:03)
[2018-06-26] MEDS: MethylPREDNISolone 40 mg Vial IVP SCH (00:03)
[2018-06-26] MEDS: Levalbuterol 1.25 MG/3 ML Inhal Soln UD INH SCH ×6 (04:12→23:41)
[2018-06-26] MEDS: Ipratropium 0.02% Inhal Soln (0.5 mg/2.5 ml) UD IH SCH ×6 (04:12→23:41)
[2018-06-26 06:37] LABS: HEMOGLOBIN 7.8 g/dL (12.0-18.0); MEAN CELL VOLUME 89.7 fl (80.0-94.0); MEAN CORPUSCULAR HEMOGLOBIN 30.1 pg (27.0-31.0); MEAN CORPUSCULAR HGB CONC 33.6 g/dL (33.0-37.0); RBC 2.6 Mil/uL (4.40-5.90); RED CELL DISTRIBUTION WIDTH 17.2 % (11.5-14.5); WHITE BLOOD COUNT 5.9 K/uL (4.8-10.8)
[2018-06-26 06:49] LABS: CALCIUM 8.5 mg/dL (8.4-10.2)
[2018-06-26] MEDS: guaiFENesin 100 mg/5 ml Syrup UD PO PRN (08:48)
[2018-06-26] MEDS: VORICONAZOLE IVPB SCH (08:50)
[2018-06-26] MEDS: SODIUM CHLORIDE 0.9% IVPB SCH (08:50)
[2018-06-26 09:04] LABS: INR 2.6; PROTHROMBIN TIME 29.7 Seconds (9.8-13.1)
[2018-06-26 09:15] LABS: ALB/GLOB RATIO 0.8 (1.0-2.1); ALBUMIN 2.9 g/dL (3.5-5.0); BILIRUBIN,DIRECT 4.1 mg/ml (0.0-0.4)
--- NOTE | 2018-06-26 09:28 | CP.CCUPN ---
CCU Subjective - Physician Review Events Since Last Encounter (Free Text): Patient non verbal, no distress, no fever, no O2 supplement, NG tube in place no pressors, events reviewed CCU Objective - Vital Signs / Intake & Output Vital Signs (Last 4 hours): Vital Signs Temp Pulse Resp BP Pulse Ox 06/26/18 09:00 102 H 15 141/70 100 06/26/18 08:47 103 H 152/86 H 06/26/18 07:48 97 F L 87 14 146/76 100 06/26/18 06:00 91 H 14 151/84 H 100 Intake and Output (Last 8hrs): Intake & Output 06/25/18 06/26/18 06/26/18 22:59 06:59 14:59 Intake Total 2351 476 63 Output Total 30 170 Balance 2321 306 63 Intake: IV 0 250 63 Intake, Piggyback 1550 226 Blood Product 698 Apheresis Plts Acda Lr 0 Irr Unit [id number] Apheresis Plts Acda Lr 199 Irr Unit [id number] Free Water Flush 20 Other 83 Apheresis Plts Acda Lr 25 Irr Unit [id number] Apheresis Plts Acda Lr 58 Irr Unit [id number] Output: Urine 30 170 Urethral (Rosas) 30 170 Other: # Bowel Movements 1 1 - Physical Exam Head: Positive for: Atraumatic, Normocephalic Pupils: Positive for: PERRL, Sluggish Conjunctiva: Positive for: Normal. Negative for: Injected, Icteric Ears: Positive for: Normal Mouth: Positive for: Moist Mucous Membranes Pharnyx: Positive for: Normal Nose (Internal): Positive for: Normal Inspection Neck: Positive for: Normal Range of Motion, Trachea Midline. Negative for: Meningeal Signs, MIDLINE TENDERNESS, Paraspinal Tenderness, JVD, Lymphadenop athy, Bruit, Other Respiratory/Chest: Positive for: Decreased Breath Sounds, Rales, Rhonchi. Negative for: Clear to Auscultation, Respiratory Distress, Accessory Muscle Use, Wheezes, Tachypneic, Tender to Palpation Cardiovascular: Positive for: Regular Rate and Rhythm, Normal S1, S2, Peripheal Pulses Present. Negative for: Murmurs, Irregular Rhythm Abdomen: Positive for: Distention. Negative for: Tenderness, Peritoneal Signs Upper Extremity: Positive for: Normal Inspection Lower Extremity: Positive for: Normal Inspection Neurological: Positive for: Other (non verbal) - Medications Active Medications: Active Medications Generic Name Dose Route Start Last Admin Trade Name Freq PRN Reason Stop Dose Admin Aspirin 81 mg 06/20/18 09:00 06/23/18 10:12 Aspirin Chewable PO Not Given DAILY [facility] Furosemide 40 mg 06/22/18 09:00 06/25/18 20:10 Lasix IVP 40 mg BID [facility] Administration Guaifenesin 100 mg 06/19/18 21:47 06/26/18 08:48 Robitussin PO 100 mg Q4 PRN Administration Cough Haloperidol Lactate 5 mg 06/23/18 18:15 06/25/18 21:44 Haldol IVP 5 mg Q6 PRN Administration Agitation Vancomycin HCl 1 gm/ Sodium 250 mls @ 125 mls/hr 06/23/18 14:30 06/25/18 15:44 Chloride IVPB 125 mls/hr Q48H [facility] Administration Protocol Acetylcysteine 7,710 mg/ 1,038.55 mls @ 62.5 mls/hr 06/25/18 17:00 06/26/18 00:03 Dextrose IVPB 06/26/18 09:36 62.5 mls/hr ONCE ONE Administration Voriconazole 450 mg/ Sodium 250 mls @ 125 mls/hr 06/25/18 21:00 06/26/18 08:50 Chloride IVPB 06/26/18 10:59 125 mls/hr Q12 [facility] Administration Protocol Voriconazole 300 mg/ Sodium 250 mls @ 125 mls/hr 06/26/18 21:00 Chloride IVPB 07/07/18 23:59 Q12 [facility] Protocol Cefepime HCl 1 gm/ Sodium 100 mls @ 100 mls/hr 06/25/18 17:00 06/26/18 00:02 Chloride IVPB 100 mls/hr Q8 [facility] Administration Protocol Ipratropium [place] 0.5 mg 06/20/18 00:00 06/26/18 07:23 Atrovent IH 0.5 mg RQ4 [facility] Administration Lactulose 20 gm 06/25/18 10:45 06/26/18 03:27 Enulose PO 20 gm Q6 [facility] Administration Lactulose 200 gm 06/26/18 08:00 Generlac [place] Q8H [facility] Levalbuterol HCl 1.25 mg 06/19/18 21:47 06/20/18 10:03 Xopenex INH 1.25 mg RQ2 PRN Administration Shortness of Breath Levalbuterol HCl 1.25 mg 06/20/18 00:00 06/26/18 07:23 Xopenex INH 1.25 mg RQ4 [facility] Administration Lorazepam 1 mg 06/23/18 12:34 06/26/18 03:25 Ativan IVP 1 mg Q6 PRN Administration Agitation Metoprolol Tartrate 50 mg 06/19/18 22:00 06/26/18 08:47 Lopressor PO 50 mg Q12 [facility] Administration Morphine Sulfate 4 mg 06/23/18 15:23 06/26/18 00:05 Morphine IVP 4 mg Q4 PRN Administration Pain, moderate (4-7) Ondansetron HCl 4 mg 06/20/18 01:16 06/20/18 01:57 Zofran Inj IVP 4 mg Q6 PRN Administration Nausea/Vomiting - Patient Studies Lab Studies: Microbiology Studies 06/21/18 Unknown Blood Culture - Preliminary Blood-During Dialysis NO GROWTH AFTER 4 DAYS 06/21/18 Unknown Blood Culture - Preliminary Blood-During Dialysis NO GROWTH AFTER 4 DAYS Lab Studies 06/26/18 06/26/18 06/26/18 Range/Units 08:00 08:00 05:30 WBC (4.8-10.8) K/uL RBC (4.40-5.90) Mil/uL Hgb (12.0-18.0) g/dL Hct (35.0-51.0) % MCV (80.0-94.0) fl MCH (27.0-31.0) pg MCHC (33.0-37.0) g/dL RDW (11.5-14.5) % Plt Count (130-400) K/uL PT 29.7 H (9.8-13.1) Seconds INR 2.6 Sodium (132-148) mmol/l Potassium (3.6-5.0) MMOL/L Chloride (98-107) mmol/L Carbon Dioxide (22-30) mmol/L Anion Gap (10-20) BUN (9-20) mg/dl Creatinine (0.8-1.5) mg/dl Est GFR ( Amer) Est GFR (Non-Af Amer) Random Glucose (75-110) mg/dL Calcium (8.4-10.2) mg/dL Total Bilirubin 4.6 H (0.2-1.3) mg/dl Direct Bilirubin 4.1 H (0.0-0.4) mg/ml Alkaline Phosphatase 62 (38-126) U/L Ammonia 17 (16-60) umo/L Total Protein 6.8 (6.3-8.2) G/DL Albumin 2.9 L (3.5-5.0) g/dL Globulin 3.8 (2.2-3.9) gm/dL Albumin/Globulin Ratio 0.8 L (1.0-2.1) Acetaminophen (10.0-30.0) ug/ml Beta-(1,3)-D-Glucan (<60) pg/mL B-(1,3)-D-Glucan Intrp 06/26/18 06/26/18 06/25/18 Range/Units 05:30 05:30 10:20 WBC 5.9 D (4.8-10.8) K/uL RBC 2.60 L (4.40-5.90) Mil/uL Hgb 7.8 L (12.0-18.0) g/dL Hct 23.3 L (35.0-51.0) % MCV 89.7 (80.0-94.0) fl MCH 30.1 (27.0-31.0) pg MCHC 33.6 (33.0-37.0) g/dL RDW 17.2 H (11.5-14.5) % Plt Count 12 L* D (130-400) K/uL PT (9.8-13.1) Seconds INR Sodium 141 (132-148) mmol/l Potassium 4.9 (3.6-5.0) MMOL/L Chloride 103 (98-107) mmol/L Carbon Dioxide 22 (22-30) mmol/L Anion Gap 21 H (10-20) BUN 98 H (9-20) mg/dl Creatinine 4.1 H (0.8-1.5) mg/dl Est GFR ( Amer) 17 Est GFR (Non-Af Amer) 14 Random Glucose 142 H (75-110) mg/dL Calcium 8.5 (8.4-10.2) mg/dL Total Bilirubin (0.2-1.3) mg/dl Direct Bilirubin (0.0-0.4) mg/ml Alkaline Phosphatase (38-126) U/L Ammonia (16-60) umo/L Total Protein (6.3-8.2) G/DL Albumin (3.5-5.0) g/dL Globulin (2.2-3.9) gm/dL Albumin/Globulin Ratio (1.0-2.1) Acetaminophen < 10.0 L (10.0-30.0) ug/ml Beta-(1,3)-D-Glucan (<60) pg/mL B-(1,3)-D-Glucan Intrp 06/25/18 06/23/18 Range/Units 10:06 15:22 WBC (4.8-10.8) K/uL RBC (4.40-5.90) Mil/uL Hgb (12.0-18.0) g/dL Hct (35.0-51.0) % MCV (80.0-94.0) fl MCH (27.0-31.0) pg MCHC (33.0-37.0) g/dL RDW (11.5-14.5) % Plt Count (130-400) K/uL PT 32.3 H D (9.8-13.1) Seconds INR 2.8 Sodium (132-148) mmol/l Potassium (3.6-5.0) MMOL/L Chloride (98-107) mmol/L Carbon Dioxide (22-30) mmol/L Anion Gap (10-20) BUN (9-20) mg/dl Creatinine (0.8-1.5) mg/dl Est GFR ( Amer) Est GFR (Non-Af Amer) Random Glucose (75-110) mg/dL Calcium (8.4-10.2) mg/dL Total Bilirubin (0.2-1.3) mg/dl Direct Bilirubin (0.0-0.4) mg/ml Alkaline Phosphatase (38-126) U/L Ammonia (16-60) umo/L Total Protein (6.3-8.2) G/DL Albumin (3.5-5.0) g/dL Globulin (2.2-3.9) gm/dL Albumin/Globulin Ratio (1.0-2.1) Acetaminophen (10.0-30.0) ug/ml Beta-(1,3)-D-Glucan >500 H (<60) pg/mL B-(1,3)-D-Glucan Intrp Positive H Laboratory Results - last 24 hr 06/23/18 06/25/18 06/25/18 15:22 10:06 10:20 WBC RBC Hgb Hct MCV MCH MCHC RDW Plt Count PT 32.3 H D INR 2.8 Sodium Potassium Chloride Carbon Dioxide Anion Gap BUN Creatinine Est GFR ( Amer) Est GFR (Non-Af Amer) Random Glucose Calcium Total Bilirubin Direct Bilirubin Alkaline Phosphatase Ammonia Total Protein Albumin Globulin Albumin/Globulin Ratio Acetaminophen < 10.0 L Beta-(1,3)-D-Glucan >500 H B-(1,3)-D-Glucan Intrp Positive H 06/26/18 06/26/18 06/26/18 05:30 05:30 05:30 WBC 5.9 D RBC 2.60 L Hgb 7.8 L Hct 23.3 L MCV 89.7 MCH 30.1 MCHC 33.6 RDW 17.2 H Plt Count 12 L* D PT INR Sodium 141 Potassium 4.9 Chloride 103 Carbon Dioxide 22 Anion Gap 21 H BUN 98 H Creatinine 4.1 H Est GFR ( Amer) 17 Est GFR (Non-Af Amer) 14 Random Glucose 142 H Calcium 8.5 Total Bilirubin Direct Bilirubin Alkaline Phosphatase Ammonia 17 Total Protein Albumin Globulin Albumin/Globulin Ratio Acetaminophen Beta-(1,3)-D-Glucan B-(1,3)-D-Glucan Intrp 06/26/18 06/26/18 08:00 08:00 WBC RBC Hgb Hct MCV MCH MCHC RDW Plt Count PT 29.7 H INR 2.6 Sodium Potassium Chloride Carbon Dioxide Anion Gap BUN Creatinine Est GFR ( Amer) Est GFR (Non-Af Amer) Random Glucose Calcium Total Bilirubin 4.6 H Direct Bilirubin 4.1 H Alkaline Phosphatase 62 Ammonia Total Protein 6.8 Albumin 2.9 L Globulin 3.8 Albumin/Globulin Ratio 0.8 L Acetaminophen Beta-(1,3)-D-Glucan B-(1,3)-D-Glucan Intrp Critical Care Progress Note - Nutrition Nutrition: Nutrition Category Date Time Status NPO Diet [DIET] Diets 06/21/18 Breakfast Active Assessment/Plan - Assessment and Plan (Free Text) Assessment: A/P Respiratory insufficiency, pneumonia, CHF, renal failure, pancytopenia, MDS - O2 supplement - Pulmonary toilets - Continue meds - ID follow up - Hematology follow up - Dialysis as per renal
--- NOTE | 2018-06-26 11:59 | CP.PCM.PN ---
Subjective - Date & Time of Evaluation Date of Evaluation: 06/26/18 Time of Evaluation: 11:54 - Subjective Subjective: Pt's condition is rapidly deteriorating.. His renal function and hepatic function is deterioratng. The bone marrrow is also failing. He was transfused platelets yesterday but today the count is only 12K, Will treansfuse again today. Still delirious. Prognosis is poor. Objective - Vital Signs/Intake and Output Vital Signs (last 24 hours): Temp Pulse Resp BP Pulse Ox 97 F L 93 H 24 136/67 100 06/26/18 07:48 06/26/18 11:00 06/26/18 11:00 06/26/18 11:00 06/26/18 11:00 Intake and Output: 06/26/18 06/26/18 06:59 18:59 Intake Total 1546 426 Output Total 170 Balance 1376 426 - Medications Medications: Current Medications Aspirin (Aspirin Chewable) 81 mg PO DAILY [facility] Last Admin: 06/23/18 10:12 Dose: Not Given Furosemide (Lasix) 40 mg IVP BID [facility] Last Admin: 06/25/18 20:10 Dose: 40 mg Guaifenesin (Robitussin) 100 mg PO Q4 PRN PRN Reason: Cough Last Admin: 06/26/18 08:48 Dose: 100 mg Haloperidol Lactate (Haldol) 5 mg IVP Q6 PRN PRN Reason: Agitation Last Admin: 06/26/18 11:53 Dose: 5 mg Vancomycin HCl 1 gm/ Sodium (Chloride) 250 mls @ 125 mls/hr IVPB Q48H [facility]; Protocol Last Admin: 06/25/18 15:44 Dose: 125 mls/hr Voriconazole 300 mg/ Sodium (Chloride) 250 mls @ 125 mls/hr IVPB Q12 [facility]; Protocol Stop: 07/07/18 23:59 Cefepime HCl 1 gm/ Sodium (Chloride) 100 mls @ 100 mls/hr IVPB Q8 [facility]; Protocol Last Admin: 06/26/18 09:27 Dose: 100 mls/hr Ipratropium [place] (Atrovent) 0.5 mg IH RQ4 [facility] Last Admin: 06/26/18 11:09 Dose: 0.5 mg Lactulose (Enulose) 20 gm PO Q6 [facility] Last Admin: 06/26/18 09:33 Dose: 20 gm Lactulose (Generlac) 200 gm [place] Q8H [facility] Levalbuterol HCl (Xopenex) 1.25 mg INH RQ2 PRN PRN Reason: Shortness of Breath Last Admin: 06/20/18 10:03 Dose: 1.25 mg Levalbuterol HCl (Xopenex) 1.25 mg INH RQ4 [facility] Last Admin: 06/26/18 11:09 Dose: 1.25 mg Lorazepam (Ativan) 1 mg IVP Q6 PRN PRN Reason: Agitation Last Admin: 06/26/18 03:25 Dose: 1 mg Metoprolol Tartrate (Lopressor) 50 mg PO Q12 [facility] Last Admin: 06/26/18 08:47 Dose: 50 mg Morphine Sulfate (Morphine) 4 mg IVP Q4 PRN PRN Reason: Pain, moderate (4-7) Last Admin: 06/26/18 00:05 Dose: 4 mg Ondansetron HCl (Zofran Inj) 4 mg IVP Q6 PRN PRN Reason: Nausea/Vomiting Last Admin: 06/20/18 01:57 Dose: 4 mg - Labs Labs: 06/26/18 05:30 06/26/18 05:30 PT 29.7 Seconds (9.8-13.1) H 06/26/18 08:00 INR 2.6 06/26/18 08:00
--- NOTE | 2018-06-26 13:49 | CP.PCM.PN ---
Subjective - Date & Time of Evaluation Date of Evaluation: 06/26/18 Time of Evaluation: 13:49 - Subjective Subjective: Mr. Farmer is 78 yo wm with pmh/o MDS, cad, s/p CABG about 15 yrs ago, hypothyroidism, CHF, COPD was admitted to [facility] for about 2 months as per pt's family. who discharged about 2 weks ago was presented to ER on with cc/o severe cough, sob, cough associated with yellow sputum for few days. 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 renal consult is requested for worsening renal function since admission, pt was in resp. distress and intubated on 06/20/2018, pt also developed met. acidosis, re sp.acidosis and severe hyperkalemia, s/p rt FV catheter placement by icu attending s/p HD x2 on thursday and thursday, then pt fulled out his fv catheter. pt is confused, agitated and pt's renal function is deteriorating with hyperkalemia pt is being dialyzed, uf goal is about 2lit Objective - Vital Signs/Intake and Output Vital Signs (last 24 hours): Temp Pulse Resp BP Pulse Ox 97.2 F L 92 H 14 125/66 100 06/26/18 12:00 06/26/18 12:00 06/26/18 12:00 06/26/18 12:00 06/26/18 12:00 Intake and Output: 06/26/18 06/26/18 06:59 18:59 Intake Total 1546 489 Output Total 170 Balance 1376 489 - Medications Medications: Current Medications Aspirin (Aspirin Chewable) 81 mg PO DAILY [facility] Last Admin: 06/23/18 10:12 Dose: Not Given Furosemide (Lasix) 40 mg IVP BID [facility] Last Admin: 06/26/18 11:57 Dose: 40 mg Guaifenesin (Robitussin) 100 mg PO Q4 PRN PRN Reason: Cough Last Admin: 06/26/18 08:48 Dose: 100 mg Haloperidol Lactate (Haldol) 5 mg IVP Q6 PRN PRN Reason: Agitation Last Admin: 06/26/18 11:53 Dose: 5 mg Vancomycin HCl 1 gm/ Sodium (Chloride) 250 mls @ 125 mls/hr IVPB Q48H [facility]; Protocol Last Admin: 06/25/18 15:44 Dose: 125 mls/hr Voriconazole 300 mg/ Sodium (Chloride) 250 mls @ 125 mls/hr IVPB Q12 [facility]; Protocol Stop: 07/07/18 23:59 Cefepime HCl 1 gm/ Sodium (Chloride) 100 mls @ 100 mls/hr IVPB Q8 [facility]; Protocol Last Admin: 06/26/18 09:27 Dose: 100 mls/hr Ipratropium [place] (Atrovent) 0.5 mg IH RQ4 [facility] Last Admin: 06/26/18 11:09 Dose: 0.5 mg Lactulose (Enulose) 20 gm PO Q6 [facility] Last Admin: 06/26/18 09:33 Dose: 20 gm Lactulose (Generlac) 200 gm [place] Q8H [facility] Levalbuterol HCl (Xopenex) 1.25 mg INH RQ2 PRN PRN Reason: Shortness of Breath Last Admin: 06/20/18 10:03 Dose: 1.25 mg Levalbuterol HCl (Xopenex) 1.25 mg INH RQ4 [facility] Last Admin: 06/26/18 11:09 Dose: 1.25 mg Metoprolol Tartrate (Lopressor) 50 mg PO Q12 [facility] Last Admin: 06/26/18 08:47 Dose: 50 mg Morphine Sulfate (Morphine) 4 mg IVP Q4 PRN PRN Reason: Pain, moderate (4-7) Last Admin: 06/26/18 00:05 Dose: 4 mg Ondansetron HCl (Zofran Inj) 4 mg IVP Q6 PRN PRN Reason: Nausea/Vomiting Last Admin: 06/20/18 01:57 Dose: 4 mg - Labs Labs: 06/26/18 05:30 06/26/18 05:30 PT 29.7 Seconds (9.8-13.1) H 06/26/18 08:00 INR 2.6 06/26/18 08:00 - Constitutional Appears: No Acute Distress - Head Exam Head Exam: ATRAUMATIC, NORMAL INSPECTION, NORMOCEPHALIC - Eye Exam Eye Exam: EOMI, Normal appearance, PERRL Pupil Exam: NORMAL ACCOMODATION - Neck Exam Neck Exam: Normal Inspection - Respiratory Exam Respiratory Exam: Clear to Ausculation Bilateral, NORMAL BREATHING PATTERN - Cardiovascular Exam Cardiovascular Exam: REGULAR RHYTHM, +S1, +S2 - GI/Abdominal Exam GI & Abdominal Exam: Soft, Normal Bowel Sounds - Rectal Exam Rectal Exam: Deferred - Back Exam Additional comments: no edema - Neurological Exam Additional comments: pt is lethergic, restrained - Skin Skin Exam: Normal Color, Warm Assessment and Plan - Assessment and Plan (Free Text) Assessment: Mr. Farmer is 78 yo wm with pmh/o MDS, cad, s/p CABG about 15 yrs ago, hypothyroidism, CHF, COPD was admitted to [facility] for about 2 months as per pt's family. who discharged about 2 weks ago was presedted to ER on with cc/o severe cough, sob, cough [id number] yellow sputum for few days. s/p intubation with worsening renal function , hyperkalemia 1. ROSE on ckd-4 2. s/p Hyperkalemia 3. Acute resp. failure 4. s/p intubation 5. Acute exaccerbation of COPD 6. MDS 7. Anemia 8. Thrombocytopenia s/p rt IJV cate cath , s/p hd on pt is being dialyzed, uf goal is about 2 lit prognosis is very poor
[2018-06-26] MEDS: Lactulose 10 gm/15 ml (Rectal Use) PR SCH (16:00)
--- NOTE | 2018-06-26 17:27 | CP.PCM.PN ---
Subjective - Date & Time of Evaluation Date of Evaluation: 06/26/18 Time of Evaluation: 17:26 - Subjective Subjective: Patient remains very lethargic. Noted very low platelet. Objective - Vital Signs/Intake and Output Vital Signs (last 24 hours): Temp Pulse Resp BP Pulse Ox 97.3 F L 93 H 11 L 128/72 100 06/26/18 16:00 06/26/18 16:00 06/26/18 16:00 06/26/18 16:00 06/26/18 16:00 Intake and Output: 06/26/18 06/26/18 06:59 18:59 Intake Total 1546 1066 Output Total 170 1500 Balance 1376 -434 - Medications Medications: Current Medications Aspirin (Aspirin Chewable) 81 mg PO DAILY [facility] Last Admin: 06/23/18 10:12 Dose: Not Given Furosemide (Lasix) 40 mg IVP BID [facility] Last Admin: 06/26/18 11:57 Dose: 40 mg Guaifenesin (Robitussin) 100 mg PO Q4 PRN PRN Reason: Cough Last Admin: 06/26/18 08:48 Dose: 100 mg Haloperidol Lactate (Haldol) 5 mg IVP Q6 PRN PRN Reason: Agitation Last Admin: 06/26/18 11:53 Dose: 5 mg Vancomycin HCl 1 gm/ Sodium (Chloride) 250 mls @ 125 mls/hr IVPB Q48H [facility]; Protocol Last Admin: 06/25/18 15:44 Dose: 125 mls/hr Voriconazole 300 mg/ Sodium (Chloride) 250 mls @ 125 mls/hr IVPB Q12 [facility]; Protocol Stop: 07/07/18 23:59 Cefepime HCl 1 gm/ Sodium (Chloride) 100 mls @ 100 mls/hr IVPB Q8 [facility]; Protocol Last Admin: 06/26/18 16:03 Dose: 100 mls/hr Ipratropium [place] (Atrovent) 0.5 mg IH RQ4 [facility] Last Admin: 06/26/18 15:09 Dose: 0.5 mg Lactulose (Enulose) 20 gm PO Q6 [facility] Last Admin: 06/26/18 15:58 Dose: 20 gm Lactulose (Generlac) 200 gm [place] Q8H [facility] Last Admin: 06/26/18 16:00 Dose: Not Given Levalbuterol HCl (Xopenex) 1.25 mg INH RQ2 PRN PRN Reason: Shortness of Breath Last Admin: 06/20/18 10:03 Dose: 1.25 mg Levalbuterol HCl (Xopenex) 1.25 mg INH RQ4 [facility] Last Admin: 06/26/18 15:09 Dose: 1.25 mg Metoprolol Tartrate (Lopressor) 50 mg PO Q12 [facility] Last Admin: 06/26/18 08:47 Dose: 50 mg Ondansetron HCl (Zofran Inj) 4 mg IVP Q6 PRN PRN Reason: Nausea/Vomiting Last Admin: 06/20/18 01:57 Dose: 4 mg - Labs Labs: 06/26/18 05:30 06/26/18 05:30 PT 29.7 Seconds (9.8-13.1) H 06/26/18 08:00 INR 2.6 06/26/18 08:00
[2018-06-26] MEDS ORDERED: methylPREDNISolone 40 MG in Sodium Chloride 0.9% 50 ML IVPB SCH (20:35)
[2018-06-26] MEDS ORDERED: MethylPREDNISolone 40 mg Vial IVP ONE (21:30)
[2018-06-27] MEDS: Cefepime 1 GM in Sodium Chloride 0.9% 100 ML IVPB SCH ×3 (01:05→17:08)
[2018-06-27 04:32] LABS: ASPERGILLUS SPP NOT DETECTED
[2018-06-27 06:23] LABS: INR 2.4; PROTHROMBIN TIME 27.1 Seconds (9.8-13.1)
[2018-06-27 06:38] LABS: ALB/GLOB RATIO 0.7 (1.0-2.1); ALBUMIN 2.9 g/dL (3.5-5.0); BILIRUBIN,DIRECT 3.9 mg/ml (0.0-0.4); CALCIUM 9.1 mg/dL (8.4-10.2)
[2018-06-27 06:47] LABS: HEMOGLOBIN 8.7 g/dL (12.0-18.0); MEAN CELL VOLUME 88.8 fl (80.0-94.0); MEAN CORPUSCULAR HEMOGLOBIN 30.6 pg (27.0-31.0); MEAN CORPUSCULAR HGB CONC 34.5 g/dL (33.0-37.0); RBC 2.85 Mil/uL (4.40-5.90); RED CELL DISTRIBUTION WIDTH 16.3 % (11.5-14.5)
--- NOTE | 2018-06-27 08:03 | CP.CCUPN ---
CCU Subjective - Physician Review Events Since Last Encounter (Free Text): Patient non verbal, no distress, no fever, no O2 supplement, NG tube in place no pressors, events reviewed CCU Objective - Vital Signs / Intake & Output Vital Signs (Last 4 hours): Vital Signs Pulse Resp BP Pulse Ox 06/27/18 06:00 80 12 128/74 97 Intake and Output (Last 8hrs): Intake & Output 06/26/18 06/27/18 06/27/18 22:59 06:59 14:59 Intake Total 1679 100 Output Total 1550 80 Balance 129 20 Intake: IV 126 0 Intake, Piggyback 350 100 Blood Product 1023 Apheresis Plts Acda Lr 199 Irr Unit [id number] Apheresis Plts Acda Lr 0 Irr Unit [id number] Red Blood Cells Cpd As1 325 Lr Unit [id number] Free Water Flush 30 Other 150 Apheresis Plts Acda Lr 75 Irr Unit [id number] Apheresis Plts Acda Lr 75 Irr Unit [id number] Output: Urine 50 80 Urethral (Rosas) 50 80 Ultrafiltrate 1500 Other: # Bowel Movements 1 1 - Physical Exam Head: Positive for: Atraumatic, Normocephalic Pupils: Positive for: PERRL, Sluggish Extroacular Muscles: Positive for: EOMI Conjunctiva: Positive for: Normal. Negative for: Injected, Icteric Ears: Positive for: Normal Mouth: Positive for: Moist Mucous Membranes Pharnyx: Positive for: Normal Nose (Internal): Positive for: Normal Inspection Neck: Positive for: Normal Range of Motion, Trachea Midline. Negative for: Meningeal Signs, MIDLINE TENDERNESS, Paraspinal Tenderness, JVD, Lymphadenopathy, Bruit, Other Respiratory/Chest: Positive for: Decreased Breath Sounds, Rales, Rhonchi. Negative for: Clear to Auscultation, Respiratory Distress, Accessory Muscle Use, Wheezes, Tachypneic, Tender to Palpation Cardiovascular: Positive for: Regular Rate and Rhythm, Normal S1, S2, Peripheal Pulses Present. Negative for: Murmurs, Irregular Rhythm Abdomen: Positive for: Distention. Negative for: Tenderness, Peritoneal Signs Upper Extremity: Positive for: Normal Inspection Lower Extremity: Positive for: Normal Inspection Neurological: Positive for: Other (non verbal) - Medications Active Medications: Active Medications Generic Name Dose Route Start Last Admin Trade Name Freq PRN Reason Stop Dose Admin Aspirin 81 mg 06/20/18 09:00 06/23/18 10:12 Aspirin Chewable PO Not Given DAILY TOMÁS Furosemide 40 mg 06/22/18 09:00 06/26/18 17:34 Lasix IVP 40 mg BID TOMÁS Administration Guaifenesin 100 mg 06/19/18 21:47 06/26/18 08:48 Robitussin PO 100 mg Q4 PRN Administration Cough Haloperidol Lactate 5 mg 06/23/18 18:15 06/26/18 20:43 Haldol IVP 5 mg Q6 PRN Administration Agitation Vancomycin HCl 1 gm/ Sodium 250 mls @ 125 mls/hr 06/23/18 14:30 06/25/18 15:44 Chloride IVPB 125 mls/hr Q48H TOMÁS Administration Protocol Voriconazole 300 mg/ Sodium 250 mls @ 125 mls/hr 06/26/18 21:00 06/26/18 20:54 Chloride IVPB 07/07/18 23:59 125 mls/hr Q12 TOMÁS Administration Protocol Cefepime HCl 1 gm/ Sodium 100 mls @ 100 mls/hr 06/25/18 17:00 06/27/18 01:05 Chloride IVPB 100 mls/hr Q8 TOMÁS Administration Protocol Lactulose 20 gm 06/25/18 10:45 06/27/18 03:36 Enulose PO 20 gm Q6 TOMÁS Administration Lactulose 200 gm 06/26/18 08:00 06/27/18 00:00 Generlac IA Not Given Q8H TOMÁS Lorazepam 1 mg 06/26/18 20:33 06/26/18 20:44 Ativan IVP 1 mg Q6 PRN Administration Agitation Methylprednisolone 40 mg 06/27/18 09:00 Solu-Medrol IVP DAILY TOMÁS Metoprolol Tartrate 50 mg 06/19/18 22:00 06/26/18 20:53 Lopressor PO 50 mg Q12 TOMÁS Administration Morphine Sulfate 4 mg 06/26/18 20:32 06/26/18 23:12 Morphine IVP 4 mg Q4 PRN Administration Pain, moderate (4-7) Ondansetron HCl 4 mg 06/20/18 01:16 06/20/18 01:57 Zofran Inj IVP 4 mg Q6 PRN Administration Nausea/Vomiting - Patient Studies Lab Studies: Microbiology Studies 06/21/18 Unknown Blood Culture - Final Blood-During Dialysis NO GROWTH AFTER 5 DAYS Gram Stain - Final TEST NOT PERFORMED 06/21/18 Unknown Blood Culture - Final Blood-During Dialysis NO GROWTH AFTER 5 DAYS Gram Stain - Final TEST NOT PERFORMED Lab Studies 06/27/18 06/27/18 06/27/18 Range/Units 05:30 05:30 05:30 WBC 6.0 (4.8-10.8) K/uL RBC 2.85 L (4.40-5.90) Mil/uL Hgb 8.7 L (12.0-18.0) g/dL Hct 25.3 L (35.0-51.0) % MCV 88.8 (80.0-94.0) fl MCH 30.6 (27.0-31.0) pg MCHC 34.5 (33.0-37.0) g/dL RDW 16.3 H (11.5-14.5) % PT 27.1 H (9.8-13.1) Seconds INR 2.4 Sodium 141 (132-148) mmol/l Potassium 4.7 (3.6-5.0) MMOL/L Chloride 104 (98-107) mmol/L Carbon Dioxide 26 (22-30) mmol/L Anion Gap 16 (10-20) BUN 75 H (9-20) mg/dl Creatinine 3.2 H (0.8-1.5) mg/dl Est GFR ( Amer) 23 Est GFR (Non-Af Amer) 19 Random Glucose 112 H (75-110) mg/dL Calcium 9.1 (8.4-10.2) mg/dL Total Bilirubin 4.5 H (0.2-1.3) mg/dl Direct Bilirubin 3.9 H (0.0-0.4) mg/ml AST 1440 H (17-59) U/L ALT 2358 H (21-72) U/L Alkaline Phosphatase 72 (38-126) U/L Total Protein 6.7 (6.3-8.2) G/DL Albumin 2.9 L (3.5-5.0) g/dL Globulin 3.9 (2.2-3.9) gm/dL Albumin/Globulin Ratio 0.7 L (1.0-2.1) Aspergillus sp (PCR) Blood Type Antibody Screen Crossmatch 06/26/18 06/26/18 06/26/18 Range/Units 12:25 08:00 08:00 WBC (4.8-10.8) K/uL RBC (4.40-5.90) Mil/uL Hgb (12.0-18.0) g/dL Hct (35.0-51.0) % MCV (80.0-94.0) fl MCH (27.0-31.0) pg MCHC (33.0-37.0) g/dL RDW (11.5-14.5) % PT 29.7 H (9.8-13.1) Seconds INR 2.6 Sodium (132-148) mmol/l Potassium (3.6-5.0) MMOL/L Chloride (98-107) mmol/L Carbon Dioxide (22-30) mmol/L Anion Gap (10-20) BUN (9-20) mg/dl Creatinine (0.8-1.5) mg/dl Est GFR ( Amer) Est GFR (Non-Af Amer) Random Glucose (75-110) mg/dL Calcium (8.4-10.2) mg/dL Total Bilirubin 4.6 H (0.2-1.3) mg/dl Direct Bilirubin 4.1 H (0.0-0.4) mg/ml AST 2249 H (17-59) U/L ALT 3350 H (21-72) U/L Alkaline Phosphatase 62 (38-126) U/L Total Protein 6.8 (6.3-8.2) G/DL Albumin 2.9 L (3.5-5.0) g/dL Globulin 3.8 (2.2-3.9) gm/dL Albumin/Globulin Ratio 0.8 L (1.0-2.1) Aspergillus sp (PCR) Blood Type O POSITIVE Antibody Screen Negative Crossmatch See Detail 06/24/18 Range/Units 16:12 WBC (4.8-10.8) K/uL RBC (4.40-5.90) Mil/uL Hgb (12.0-18.0) g/dL Hct (35.0-51.0) % MCV (80.0-94.0) fl MCH (27.0-31.0) pg MCHC (33.0-37.0) g/dL RDW (11.5-14.5) % PT (9.8-13.1) Seconds INR Sodium (132-148) mmol/l Potassium (3.6-5.0) MMOL/L Chloride (98-107) mmol/L Carbon Dioxide (22-30) mmol/L Anion Gap (10-20) BUN (9-20) mg/dl Creatinine (0.8-1.5) mg/dl Est GFR ( Amer) Est GFR (Non-Af Amer) Random Glucose (75-110) mg/dL Calcium (8.4-10.2) mg/dL Total Bilirubin (0.2-1.3) mg/dl Direct Bilirubin (0.0-0.4) mg/ml AST (17-59) U/L ALT (21-72) U/L Alkaline Phosphatase (38-126) U/L Total Protein (6.3-8.2) G/DL Albumin (3.5-5.0) g/dL Globulin (2.2-3.9) gm/dL Albumin/Globulin Ratio (1.0-2.1) Aspergillus sp (PCR) Not detected Blood Type Antibody Screen Crossmatch Laboratory Results - last 24 hr 06/24/18 06/26/18 06/26/18 16:12 08:00 08:00 WBC RBC Hgb Hct MCV MCH MCHC RDW PT 29.7 H INR 2.6 Sodium Potassium Chloride Carbon Dioxide Anion Gap BUN Creatinine Est GFR ( Amer) Est GFR (Non-Af Amer) Random Glucose Calcium Total Bilirubin 4.6 H Direct Bilirubin 4.1 H AST 2249 H ALT 3350 H Alkaline Phosphatase 62 Total Protein 6.8 Albumin 2.9 L Globulin 3.8 Albumin/Globulin Ratio 0.8 L Aspergillus sp (PCR) Not detected Blood Type Antibody Screen Crossmatch 06/26/18 06/27/18 06/27/18 12:25 05:30 05:30 WBC RBC Hgb Hct MCV MCH MCHC RDW PT 27.1 H INR 2.4 Sodium 141 Potassium 4.7 Chloride 104 Carbon Dioxide 26 Anion Gap 16 BUN 75 H Creatinine 3.2 H Est GFR ( Amer) 23 Est GFR (Non-Af Amer) 19 Random Glucose 112 H Calcium 9.1 Total Bilirubin 4.5 H Direct Bilirubin 3.9 H AST 1440 H ALT 2358 H Alkaline Phosphatase 72 Total Protein 6.7 Albumin 2.9 L Globulin 3.9 Albumin/Globulin Ratio 0.7 L Aspergillus sp (PCR) Blood Type O POSITIVE Antibody Screen Negative Crossmatch See Detail 06/27/18 05:30 WBC 6.0 RBC 2.85 L Hgb 8.7 L Hct 25.3 L MCV 88.8 MCH 30.6 MCHC 34.5 RDW 16.3 H PT INR Sodium Potassium Chloride Carbon Dioxide Anion Gap BUN Creatinine Est GFR ( Amer) Est GFR (Non-Af Amer) Random Glucose Calcium Total Bilirubin Direct Bilirubin AST ALT Alkaline Phosphatase Total Protein Albumin Globulin Albumin/Globulin Ratio Aspergillus sp (PCR) Blood Type Antibody Screen Crossmatch Critical Care Progress Note - Nutrition Nutrition: Nutrition Category Date Time Status NPO Diet [DIET] Diets 06/21/18 Breakfast Active Assessment/Plan - Assessment and Plan (Free Text) Assessment: A/P Respiratory insufficiency, pneumonia, CHF, renal failure, pancytopenia, MDS - O2 supplement - Pulmonary toilets - Continue meds - ID follow up - Hematology follow up - Dialysis as per renal
[2018-06-27] MEDS: Lactulose 10 gm/15 ml (Rectal Use) PR SCH ×3 (10:22→17:08)
[2018-06-27] MEDS: MethylPREDNISolone 40 mg Vial IVP SCH (10:30)
--- NOTE | 2018-06-27 12:36 | CP.PCM.PN ---
Subjective - Date & Time of Evaluation Date of Evaluation: 06/27/18 Time of Evaluation: 10:00 - Subjective Subjective: remains agitated at times / confused afebrile Has aspergillosis of lung as per records from [place]- may have disseminated Objective - Vital Signs/Intake and Output Vital Signs (last 24 hours): Temp Pulse Resp BP Pulse Ox 98.2 F 75 16 132/67 96 06/27/18 08:00 06/27/18 10:00 06/27/18 10:00 06/27/18 10:34 06/27/18 10:00 Intake and Output: 06/27/18 06/27/18 06:59 18:59 Intake Total 729 Output Total 80 Balance 649 - Medications Medications: Current Medications Aspirin (Aspirin Chewable) 81 mg PO DAILY TOMÁS Last Admin: 06/23/18 10:12 Dose: Not Given Furosemide (Lasix) 40 mg IVP BID TOMÁS Last Admin: 06/27/18 10:34 Dose: 40 mg Guaifenesin (Robitussin) 100 mg PO Q4 PRN PRN Reason: Cough Last Admin: 06/26/18 08:48 Dose: 100 mg Haloperidol Lactate (Haldol) 5 mg IVP Q6 PRN PRN Reason: Agitation Last Admin: 06/27/18 11:20 Dose: 5 mg Vancomycin HCl 1 gm/ Sodium (Chloride) 250 mls @ 125 mls/hr IVPB Q48H TOMÁS; Protocol Last Admin: 06/25/18 15:44 Dose: 125 mls/hr Voriconazole 300 mg/ Sodium (Chloride) 250 mls @ 125 mls/hr IVPB Q12 TOMÁS; P rotocol Stop: 07/07/18 23:59 Last Admin: 06/27/18 10:33 Dose: 125 mls/hr Cefepime HCl 1 gm/ Sodium (Chloride) 100 mls @ 100 mls/hr IVPB Q8 TOMÁS; Protocol Last Admin: 06/27/18 10:31 Dose: 100 mls/hr Lactulose (Enulose) 20 gm PO Q6 TOMÁS Last Admin: 06/27/18 10:30 Dose: 20 gm Lactulose (Generlac) 200 gm ME Q8H TOMÁS Last Admin: 06/27/18 10:22 Dose: Not Given Lorazepam (Ativan) 1 mg IVP Q6 PRN PRN Reason: Agitation Last Admin: 06/26/18 20:44 Dose: 1 mg Methylprednisolone (Solu-Medrol) 40 mg IVP DAILY [facility] Last Admin: 06/27/18 10:30 Dose: 40 mg Metoprolol Tartrate (Lopressor) 50 mg PO Q12 [facility] Last Admin: 06/27/18 10:32 Dose: 50 mg Morphine Sulfate (Morphine) 4 mg IVP Q4 PRN PRN Reason: Pain, moderate (4-7) Last Admin: 06/26/18 23:12 Dose: 4 mg Ondansetron HCl (Zofran Inj) 4 mg IVP Q6 PRN PRN Reason: Nausea/Vomiting Last Admin: 06/20/18 01:57 Dose: 4 mg - Labs Labs: 06/27/18 05:30 06/27/18 05:30 PT 27.1 Seconds (9.8-13.1) H 06/27/18 05:30 INR 2.4 06/27/18 05:30 - Constitutional Appears: Toxic, Confused, Cachectic, Chronically Ill - Head Exam Head Exam: NORMOCEPHALIC - Eye Exam Eye Exam: PERRL. absent: Scleral icterus - ENT Exam ENT Exam: Mucous Membranes Dry - Neck Exam Neck Exam: absent: Lymphadenopathy, Thyromegaly - Respiratory Exam Respiratory Exam: Decreased Breath Sounds - Cardiovascular Exam Cardiovascular Exam: REGULAR RHYTHM, +S1, +S2 - GI/Abdominal Exam GI & Abdominal Exam: Distended, Soft. absent: Tenderness - Rectal Exam Rectal Exam: Deferred - Extremities Exam Extremities Exam: absent: Pedal Edema - Back Exam Back Exam: absent: CVA tenderness (L), CVA tenderness (R) - Neurological Exam Neurological Exam: Altered - Psychiatric Exam Psychiatric exam: Depressed Assessment and Plan (1) ACS (acute coronary syndrome) Status: Acute (2) Acute respiratory failure with hypoxia Status: Acute (3) COPD (chronic obstructive pulmonary disease) Status: Acute (4) Pneumonia Status: Acute (5) Renal failure (ARF), acute on chronic Status: Acute (6) Myelodysplasia (myelodysplastic syndrome) Status: Chronic (7) Disseminated aspergillosis Status: Acute - Assessment and Plan (Free Text) Assessment: MDS with disseminated aspergillosis On Voriconazole fungal serology + poor prognosis in terms of MDS No family to clarify code status ICU care to continue
--- NOTE | 2018-06-27 15:21 | US ---
Date of service: 06/25/2018 HISTORY: COMPARISON: None. TECHNIQUE: Sonographic evaluation of the abdomen. FINDINGS: LIVER: Measures 13.0 in length. Grossly nonfocal echogenicity of the liver parenchyma. No mass. No intrahepatic bile duct dilatation. Normal directional blood flow is identified at the portal vein. GALLBLADDER: Gallbladder is distended with mural thickness up to 3.1 mm without pericholecystic fluid collection or cholelithiasis associated. There is no reported sonographic [place] sign. Clinically correlate nevertheless. COMMON BILE DUCT: Measures 4.0 in transverse dimension. No stones. No dilatation. PANCREAS: Pancreas is completely obscured by overlying bowel gas. RIGHT KIDNEY: Measures 9.9cm. There is poor corticomedullary definition and mild cortical atrophy is appreciated. Intrinsic medical renal disease not excluded. No urolithiasis or obstructive uropathy is appreciated. No solid mass identified at this time or perinephric fluid collection. There is an upper pole simple cyst measuring 2.3 x 2.1 x 2.5 cm. Two small midpole right renal cysts are identified measure 1.1 x 1.1 x 0.9 cm and measuring 2.1 x 2.3 x 2.2 cm. LEFT KIDNEY: Measures 9.9cm. There is poor corticomedullary definition and mild cortical atrophy is appreciated. Intrinsic medical renal disease not excluded. No urolithiasis or obstructive uropathy is appreciated. No cystic or solid mass identified at this time or perinephric fluid collection. SPLEEN: Normal in size and contour. No mass. AORTA: No aneurysmal dilatation. IVC: Unremarkable. OTHER FINDINGS: Body habitus limits overall examination. Incidental note is made of trace right pleural effusion. IMPRESSION: 1. Normal directional blood flow is identified at the main portal vein. 2. No suspicious hepatic findings appreciated the gallbladder is distended with mild mural thickening up to 3.1 mm but no other significant findings to suggest active cholecystitis. No cholelithiasis. Clinically correlate further. 3. Pancreas completely obscured by overlying bowel gas. 4. Multiple simple cysts right kidney. No obstructive uropathy bilaterally.
[2018-06-27] MEDS ORDERED: Chlorhexidine Gluconate 1 APPL/PKT TP ONE (21:49)
[2018-06-27] MEDS: Levalbuterol 0.63 MG/3 ML Inhal Soln UD INH PRN (22:13)
[2018-06-28] MEDS: Lactulose 10 gm/15 ml (Rectal Use) PR SCH (00:20)
[2018-06-28] MEDS: Cefepime 1 GM in Sodium Chloride 0.9% 100 ML IVPB SCH ×3 (00:47→16:40)
[2018-06-28] MEDS: Levalbuterol 1.25 MG/3 ML Inhal Soln UD INH SCH ×4 (02:45→19:17)
[2018-06-28] MEDS: Ipratropium 0.02% Inhal Soln (0.5 mg/2.5 ml) UD IH SCH ×4 (02:45→19:17)
[2018-06-28] MEDS: Levalbuterol 0.63 MG/3 ML Inhal Soln UD INH PRN (05:43)
[2018-06-28 08:16] LABS: HEPATITIS B SURFACE AG Negative (NEGATIVE)
[2018-06-28 08:23] LABS: HEPATITIS A IGM NEGATIVE (NEGATIVE); HEPATITIS B CORE AB NEGATIVE (NEGATIVE)
[2018-06-28 08:33] LABS: HEPATITIS C ANTIBODY NEGATIVE (NEGATIVE)
--- NOTE | 2018-06-28 09:02 | RAD ---
Date of service: 06/27/2018 HISTORY: Post NG tube insertion COMPARISON: Portable chest 06/25/2018. FINDINGS: LUNGS: Right central venous dialysis catheter and right upper extremity PICC are unchanged in position with interval nasogastric tube placed entering into left upper quadrant abdomen. Borderline left basilar airspace disease obscures left hemidiaphragm minimally. Remaining lung bazan appear clear. PLEURA: No significant pleural effusion identified, no pneumothorax apparent. CARDIOVASCULAR: No atherosclerotic calcification present Normal. OSSEOUS STRUCTURES: No significant abnormalities. VISUALIZED UPPER ABDOMEN: Normal. OTHER FINDINGS: None. IMPRESSION: Trace airspace disease left base with remaining lung bazan clear. Adequate NG tube placement entering into the left upper quadrant abdomen with the tip off the image. Remaining catheters unchanged.
[2018-06-28 09:16] LABS: INR 2.3; PROTHROMBIN TIME 25.6 Seconds (9.8-13.1)
[2018-06-28] MEDS: MethylPREDNISolone 40 mg Vial IVP SCH (09:44)
--- NOTE | 2018-06-28 09:57 | CP.PCM.PN ---
Subjective - Date & Time of Evaluation Date of Evaluation: 06/28/18 Time of Evaluation: 09:00 - Subjective Subjective: GI Fellow PGY 5 Progress Note Pt seen and examined at bedside, pt is still delirium but not screaming as last week, unable to answer questions. No abdominal pain on exam. + BM in days. Pt does have NGT. ROS: A 12pt ROS was unable to be obtained due to AMS. Objective - Vital Signs/Intake and Output Vital Signs (last 24 hours): Temp Pulse Resp BP Pulse Ox 98 F 67 11 L 121/59 L 100 06/28/18 08:00 06/28/18 09:42 06/28/18 08:00 06/28/18 09:42 06/28/18 08:00 Intake and Output: 06/28/18 06/28/18 06:59 18:59 Intake Total 759 Output Total 200 Balance 559 - Medications Medications: Current Medications Aspirin (Aspirin Chewable) 81 mg PO DAILY TOMÁS Last Admin: 06/23/18 10:12 Dose: Not Given Furosemide (Lasix) 40 mg IVP BID TOMÁS Last Admin: 06/28/18 09:42 Dose: 40 mg Guaifenesin (Robitussin) 100 mg PO Q4 PRN PRN Reason: Cough Last Admin: 06/26/18 08:48 Dose: 100 mg Haloperidol Lactate (Haldol) 5 mg IVP Q6 PRN PRN Reason: Agitation Last Admin: 06/27/18 11:20 Dose: 5 mg Voriconazole 300 mg/ Sodium (Chloride) 250 mls @ 125 mls/hr IVPB Q12 TOMÁS; Protocol Stop: 07/07/18 23:59 Last Admin: 06/28/18 09:43 Dose: 125 mls/hr Cefepime HCl 1 gm/ Sodium (Chloride) 100 mls @ 100 mls/hr IVPB Q8 TOMÁS; Protocol Last Admin: 06/28/18 09:43 Dose: 100 mls/hr Ipratropium [place] (Atrovent) 0.5 mg IH RQ6 TOMÁS Last Admin: 06/28/18 07:39 Dose: 0.5 mg Lactulose (Enulose) 20 gm PO TID TOMÁS Levalbuterol HCl (Xopenex) 1.25 mg INH RQ6 TOMÁS Last Admin: 06/28/18 07:39 Dose: 1.25 mg Levalbuterol HCl (Xopenex) 0.63 mg INH RQ2 PRN PRN Reason: Shortness of Breath Last Admin: 06/28/18 05:43 Dose: 0.63 mg Lorazepam (Ativan) 1 mg IVP Q6 PRN PRN Reason: Agitation Last Admin: 06/27/18 13:45 Dose: 1 mg Methylprednisolone (Solu-Medrol) 40 mg IVP DAILY [facility] Last Admin: 06/28/18 09:44 Dose: 40 mg Metoprolol Tartrate (Lopressor) 50 mg PO Q12 TOMÁS Last Admin: 06/28/18 09:42 Dose: Not Given Morphine Sulfate (Morphine) 4 mg IVP Q4 PRN PRN Reason: Pain, moderate (4-7) Last Admin: 06/27/18 21:04 Dose: 4 mg Ondansetron HCl (Zofran Inj) 4 mg IVP Q6 PRN PRN Reason: Nausea/Vomiting Last Admin: 06/20/18 01:57 Dose: 4 mg - Labs Labs: 06/27/18 05:30 06/27/18 05:30 PT 25.6 Seconds (9.8-13.1) H 06/28/18 08:53 INR 2.3 06/28/18 08:53 - Constitutional Appears: Confused, Chronically Ill - Head Exam Head Exam: ATRAUMATIC, NORMAL INSPECTION, NORMOCEPHALIC - ENT Exam ENT Exam: Mucous Membranes Dry Additional comments: NGT - Respiratory Exam Respiratory Exam: Decreased Breath Sounds, NORMAL BREATHING PATTERN - Cardiovascular Exam Cardiovascular Exam: Tachycardia, +S1, +S2 - GI/Abdominal Exam GI & Abdominal Exam: Soft, Normal Bowel Sounds. absent: Distended, Firm, Guarding, Rigid, Tenderness - Rectal Exam Rectal Exam: Deferred - Extremities Exam Extremities Exam: Pedal Edema - Skin Skin Exam: Dry, Intact, Normal Color, Warm Assessment and Plan - Assessment and Plan (Free Text) Assessment: 1. Acute Liver Failure, elevated LFTs and INR 2. Delirium possible Hepatic encephalopathy 3. VDRF s/p extubation 4. COPD Exacerbation 5. Myelodysplastic Syndrome with Pancytopenia 6. ARF s/p HD 7. PNA 8. AECHF 9. Elevated troponin Plan: -Continue supportive care in ICU -Acute Liver failure with LFT/INR trending down -Elevated LFTs multifactorial from Drug induced liver injury while on abx/antifungal/steroids and congestive hepatopathy with CHF/fluid overload, and well as hypotension with SBP 170s-->115 -Monitor LFTS and INR daily -Abd US with patent portal flow -Pt completed IV Vit K 10mg for 3 days -s/p IV NAC for three doses -Hepatitis profile negative -Acetaminophen level negative -Avoid hepatotoxic agents -Delirium possible Hepatic encephalopathy in setting of LONG-TERM -Lactulose via NGT for 3 BM daily -Nutritional support -Optimize cardiac function and fluid status -Avoid hypotension -Transfuse as needed for MDS, hematology following -Please call with any questions or concerns
--- NOTE | 2018-06-28 10:40 | CP.PCM.PN ---
Subjective - Date & Time of Evaluation Date of Evaluation: 06/28/18 Time of Evaluation: 08:00 - Subjective Subjective: remains bed bound and lethargic afebrile NAD Objective - Vital Signs/Intake and Output Vital Signs (last 24 hours): Temp Pulse Resp BP Pulse Ox 98 F 66 10 L 122/57 L 100 06/28/18 08:00 06/28/18 10:00 06/28/18 10:00 06/28/18 10:00 06/28/18 10:00 Intake and Output: 06/28/18 06/28/18 06:59 18:59 Intake Total 759 Output Total 200 Balance 559 - Medications Medications: Current Medications Aspirin (Aspirin Chewable) 81 mg PO DAILY TOMÁS Last Admin: 06/23/18 10:12 Dose: Not Given Furosemide (Lasix) 40 mg IVP BID TOMÁS Last Admin: 06/28/18 09:42 Dose: 40 mg Guaifenesin (Robitussin) 100 mg PO Q4 PRN PRN Reason: Cough Last Admin: 06/26/18 08:48 Dose: 100 mg Haloperidol Lactate (Haldol) 5 mg IVP Q6 PRN PRN Reason: Agitation Last Admin: 06/27/18 11:20 Dose: 5 mg Voriconazole 300 mg/ Sodium (Chloride) 250 mls @ 125 mls/hr IVPB Q12 TOMÁS; Protocol Stop: 07/07/18 23:59 Last Admin: 06/28/18 09:43 Dose: 125 mls/hr Cefepime HCl 1 gm/ Sodium (Chloride) 100 mls @ 100 mls/hr IVPB Q8 TOMÁS; Protocol Last Admin: 06/28/18 09:43 Dose: 100 mls/hr Ipratropium [place] (Atrovent) 0.5 mg IH RQ6 TOMÁS Last Admin: 06/28/18 07:39 Dose: 0.5 mg Lactulose (Enulose) 20 gm PO TID TOMÁS Levalbuterol HCl (Xopenex) 1.25 mg INH RQ6 TOMÁS Last Admin: 06/28/18 07:39 Dose: 1.25 mg Levalbuterol HCl (Xopenex) 0.63 mg INH RQ2 PRN PRN Reason: Shortness of Breath Last Admin: 06/28/18 05:43 Dose: 0.63 mg Lorazepam (Ativan) 1 mg IVP Q6 PRN PRN Reason: Agitation Last Admin: 06/27/18 13:45 Dose: 1 mg Methylprednisolone (Solu-Medrol) 40 mg IVP DAILY [facility] Last Admin: 06/28/18 09:44 Dose: 40 mg Metoprolol Tartrate (Lopressor) 50 mg PO Q12 [facility] Last Admin: 06/28/18 09:42 Dose: Not Given Morphine Sulfate (Morphine) 4 mg IVP Q4 PRN PRN Reason: Pain, moderate (4-7) Last Admin: 06/27/18 21:04 Dose: 4 mg Ondansetron HCl (Zofran Inj) 4 mg IVP Q6 PRN PRN Reason: Nausea/Vomiting Last Admin: 06/20/18 01:57 Dose: 4 mg - Labs Labs: 06/27/18 05:30 06/27/18 05:30 PT 25.6 Seconds (9.8-13.1) H 06/28/18 08:53 INR 2.3 06/28/18 08:53 - Constitutional Appears: Non-toxic, Confused, Cachectic, Chronically Ill - Head Exam Head Exam: NORMOCEPHALIC - Eye Exam Eye Exam: PERRL - ENT Exam ENT Exam: Mucous Membranes Dry - Neck Exam Neck Exam: absent: Lymphadenopathy - Respiratory Exam Respiratory Exam: Decreased Breath Sounds, Rhonchi - Cardiovascular Exam Cardiovascular Exam: REGULAR RHYTHM, +S1, +S2 - GI/Abdominal Exam GI & Abdominal Exam: Distended, Soft. absent: Tenderness - Rectal Exam Rectal Exam: Deferred - Exam Exam: NORMAL INSPECTION - Extremities Exam Extremities Exam: absent: Pedal Edema - Back Exam Back Exam: absent: CVA tenderness (L), CVA tenderness (R) - Neurological Exam Neurological Exam: Altered - Psychiatric Exam Psychiatric exam: Depressed - Skin Skin Exam: Dry Assessment and Plan (1) ACS (acute coronary syndrome) Status: Acute (2) Acute respiratory failure with hypoxia Status: Acute (3) COPD (chronic obstructive pulmonary disease) Status: Acute (4) Pneumonia Status: Acute (5) Renal failure (ARF), acute on chronic Status: Acute (6) Myelodysplasia (myelodysplastic syndrome) Status: Chronic (7) Disseminated aspergillosis Status: Acute - Assessment and Plan (Free Text) Assessment: cont antifungal rx for aspergillosis in setting of MDS ( dx at [facility] ) blood products as per Heme poor prognosis Plan: no family for DNR orders
--- NOTE | 2018-06-28 10:41 | CP.PCM.PN ---
Subjective - Date & Time of Evaluation Date of Evaluation: 06/28/18 Time of Evaluation: 10:35 - Subjective Subjective: Pt is still very agitated at night. His platelet count has not gone up inspite of the transfusions. WBC is 6.0 and hgb 8.7gms. Platelets 9K. His LFT are better but still very high, and BUN and creatinine are also elevated. I saw his peripheral smear,and there are some scitzocytes but not too many. Her presentation however could be secondary to TTP. Discussed with environmental protection specialist and shank carrier that it may be worth trying a plasmapheresis or two. If no improvement ,will discuss with his next of kin re supportive care only Objective - Vital Signs/Intake and Output Vital Signs (last 24 hours): Temp Pulse Resp BP Pulse Ox 98 F 66 10 L 122/57 L 100 06/28/18 08:00 06/28/18 10:00 06/28/18 10:00 06/28/18 10:00 06/28/18 10:00 Intake and Output: 06/28/18 06/28/18 06:59 18:59 Intake Total 759 Output Total 200 Balance 559 - Medications Medications: Current Medications Aspirin (Aspirin Chewable) 81 mg PO DAILY [facility] Last Admin: 06/23/18 10:12 Dose: Not Given Furosemide (Lasix) 40 mg IVP BID [facility] Last Admin: 06/28/18 09:42 Dose: 40 mg Guaifenesin (Robitussin) 100 mg PO Q4 PRN PRN Reason: Cough Last Admin: 06/26/18 08:48 Dose: 100 mg Haloperidol Lactate (Haldol) 5 mg IVP Q6 PRN PRN Reason: Agitation Last Admin: 06/27/18 11:20 Dose: 5 mg Voriconazole 300 mg/ Sodium (Chloride) 250 mls @ 125 mls/hr IVPB Q12 [facility]; Protocol Stop: 07/07/18 23:59 Last Admin: 06/28/18 09:43 Dose: 125 mls/hr Cefepime HCl 1 gm/ Sodium (Chloride) 100 mls @ 100 mls/hr IVPB Q8 [facility]; Protocol Last Admin: 06/28/18 09:43 Dose: 100 mls/hr Ipratropium [place] (Atrovent) 0.5 mg IH RQ6 [facility] Last Admin: 06/28/18 07:39 Dose: 0.5 mg Lactulose (Enulose) 20 gm PO TID [facility] Levalbuterol HCl (Xopenex) 1.25 mg INH RQ6 [facility] Last Admin: 06/28/18 07:39 Dose: 1.25 mg Levalbuterol HCl (Xopenex) 0.63 mg INH RQ2 PRN PRN Reason: Shortness of Breath Last Admin: 06/28/18 05:43 Dose: 0.63 mg Lorazepam (Ativan) 1 mg IVP Q6 PRN PRN Reason: Agitation Last Admin: 06/27/18 13:45 Dose: 1 mg Methylprednisolone (Solu-Medrol) 40 mg IVP DAILY [facility] Last Admin: 06/28/18 09:44 Dose: 40 mg Metoprolol Tartrate (Lopressor) 50 mg PO Q12 [facility] Last Admin: 06/28/18 09:42 Dose: Not Given Morphine Sulfate (Morphine) 4 mg IVP Q4 PRN PRN Reason: Pain, moderate (4-7) Last Admin: 06/27/18 21:04 Dose: 4 mg Ondansetron HCl (Zofran Inj) 4 mg IVP Q6 PRN PRN Reason: Nausea/Vomiting Last Admin: 06/20/18 01:57 Dose: 4 mg - Labs Labs: 06/27/18 05:30 06/27/18 05:30 PT 25.6 Seconds (9.8-13.1) H 06/28/18 08:53 INR 2.3 06/28/18 08:53
--- NOTE | 2018-06-28 12:40 | CP.PCM.PN ---
Subjective - Date & Time of Evaluation Date of Evaluation: 06/28/18 Time of Evaluation: 12:39 - Subjective Subjective: Mr. Farmer is 78 yo wm with pmh/o MDS, cad, s/p CABG about 15 yrs ago, hypothyroidism, CHF, COPD was admitted to [facility] for about 2 months as per pt's family. who was discharged about 2 weks ago, was presented to ER on with cc/o severe cough, sob, cough associated with yellow sputum for few days. s/p CABLE C[employer]TER [employer] SW[employer]ER, pt was transferred to iCU. renal consult is requested for worsening renal function since admission, pt was in resp. distress and intubated on 06/20/2018, pt also developed met. acidosis, resp.acidosis and severe hyperkalemia, s/p rt FV catheter placement by icu attending s/p HD x2 on thursday and thursday, then pt fulled out his fv catheter. pt is confused, agitated and pt's renal function is deteriorating with hyperkalemia, restarted on hemodialysis after rt IJV cate cath, s/p hd last week and thursday. pt is awake, confused, less agitated, pt's plateles are still low even after multiple transfusions, few schistocytes on peripheral smear Objective - Vital Signs/Intake and Output Vital Signs (last 24 hours): Temp Pulse Resp BP Pulse Ox 98 F 66 10 L 122/57 L 100 06/28/18 08:00 06/28/18 10:00 06/28/18 10:00 06/28/18 10:00 06/28/18 10:00 Intake and Output: 06/28/18 06/28/18 06:59 18:59 Intake Total 759 350 Output Total 200 Balance 559 350 - Medications Medications: Current Medications Aspirin (Aspirin Chewable) 81 mg PO DAILY [facility] Last Admin: 06/23/18 10:12 Dose: Not Given Furosemide (Lasix) 40 mg IVP BID [facility] Last Admin: 06/28/18 09:42 Dose: 40 mg Guaifenesin (Robitussin) 100 mg PO Q4 PRN PRN Reason: Cough Last Admin: 06/26/18 08:48 Dose: 100 mg Haloperidol Lactate (Haldol) 5 mg IVP Q6 PRN PRN Reason: Agitation Last Admin: 06/27/18 11:20 Dose: 5 mg Voriconazole 300 mg/ Sodium (Chloride) 250 mls @ 125 mls/hr IVPB Q12 [facility]; Protocol Stop: 07/07/18 23:59 Last Admin: 06/28/18 09:43 Dose: 125 mls/hr Cefepime HCl 1 gm/ Sodium (Chloride) 100 mls @ 100 mls/hr IVPB Q8 [facility]; Protocol Last Admin: 06/28/18 09:43 Dose: 100 mls/hr Ipratropium [place] (Atrovent) 0.5 mg IH RQ6 [facility] Last Admin: 06/28/18 07:39 Dose: 0.5 mg Lactulose (Enulose) 20 gm PO TID [facility] Levalbuterol HCl (Xopenex) 1.25 mg INH RQ6 [facility] Last Admin: 06/28/18 07:39 Dose: 1.25 mg Levalbuterol HCl (Xopenex) 0.63 mg INH RQ2 PRN PRN Reason: Shortness of Breath Last Admin: 06/28/18 05:43 Dose: 0.63 mg Lorazepam (Ativan) 1 mg IVP Q6 PRN PRN Reason: Agitation Last Admin: 06/27/18 13:45 Dose: 1 mg Methylprednisolone (Solu-Medrol) 40 mg IVP DAILY [facility] Last Admin: 06/28/18 09:44 Dose: 40 mg Metoprolol Tartrate (Lopressor) 50 mg PO Q12 [facility] Last Admin: 06/28/18 09:42 Dose: Not Given Morphine Sulfate (Morphine) 4 mg IVP Q4 PRN PRN Reason: Pain, moderate (4-7) Last Admin: 06/27/18 21:04 Dose: 4 mg Ondansetron HCl (Zofran Inj) 4 mg IVP Q6 PRN PRN Reason: Nausea/Vomiting Last Admin: 06/20/18 01:57 Dose: 4 mg - Labs Labs: 06/27/18 05:30 06/27/18 05:30 PT 25.6 Seconds (9.8-13.1) H 06/28/18 08:53 INR 2.3 06/28/18 08:53 - Constitutional Appears: Well, No Acute Distress - Head Exam Head Exam: ATRAUMATIC, NORMOCEPHALIC - Eye Exam Eye Exam: EOMI, Normal appearance, PERRL - ENT Exam ENT Exam: Mucous Membranes Dry - Neck Exam Neck Exam: Full ROM, Normal Inspection - Respiratory Exam Respiratory Exam: Clear to Ausculation Bilateral, NORMAL BREATHING PATTERN - Cardiovascular Exam Cardiovascular Exam: REGULAR RHYTHM, +S1, +S2 - GI/Abdominal Exam GI & Abdominal Exam: Soft, Normal Bowel Sounds - Rectal Exam Rectal Exam: Deferred - Neurological Exam Neurological Exam: Awake Additional comments: confused, not following commands - Skin Skin Exam: Normal Color, Warm Assessment and Plan - Assessment and Plan (Free Text) Assessment: Mr. Farmer is 78 yo wm with pmh/o MDS, cad, s/p CABG about 15 yrs ago, hypothyroidism, CHF, COPD was admitted to [facility] for about 2 months as per pt's family. who discharged about 2 weks ago was presedted to ER on with cc/o severe cough, sob, cough [id number] yellow sputum for few days. s/p intubation with worsening renal function , hyperkalemia 1. ROSE on ckd-4 2. s/p Hyperkalemia 3. Acute resp. failure 4. s/p intubation 5. Acute exaccerbation of COPD 6. MDS 7. Anemia 8. Thrombocytopenia r/o TTP c/w HD 3 x aweek f/u with hematology for possible plasmapheresis Dr. Donaldson will try to contact [facility] Agree with business center attendant, benefits outweigh the risks d/w Dr. Adelso Donaldson this morning in rounds
--- NOTE | 2018-06-28 14:32 | CP.CCUPN ---
CCU Subjective - Physician Review Events Since Last Encounter (Free Text): 06/28/18 14:31 encephalopathic. CCU Objective - Vital Signs / Intake & Output Vital Signs (Last 4 hours): Vital Signs Temp Pulse Resp BP Pulse Ox 06/28/18 12:00 97.8 F 70 9 L 138/70 100 Intake and Output (Last 8hrs): Intake & Output 06/27/18 06/28/18 06/28/18 22:59 06:59 14:59 Intake Total 759 350 Output Total 200 Balance 559 350 Weight 170 lb 6.677 oz Intake: Intake, Piggyback 350 350 Blood Product 359 Apheresis Plts Acda Lr 0 Irr Unit [id number] Other 50 Apheresis Plts Acda Lr 50 Irr Unit [id number] Output: Urine 200 Urethral (Gallego) 200 - Physical Exam Physical Exam Limitations: Positive for: Altered Mental Status Head: Positive for: Atraumatic, Normocephalic Pupils: Positive for: PERRL, Sluggish Extroacular Muscles: Positive for: EOMI Conjunctiva: Positive for: Normal. Negative for: Injected, Icteric Ears: Positive for: Normal Mouth: Positive for: Moist Mucous Membranes Pharnyx: Positive for: Normal Nose (Internal): Positive for: Normal Inspection Neck: Positive for: Normal Range of Motion, Trachea Midline. Negative for: Meningeal Signs, MIDLINE TENDERNESS, Paraspinal Tenderness, JVD, Lymphadenopathy, Bruit, Other Respiratory/Chest: Positive for: Decreased Breath Sounds, Rales, Rhonchi. Negative for: Clear to Auscultation, Respiratory Distress, Accessory Muscle Use, Wheezes, Tachypneic, Tender to Palpation Cardiovascular: Positive for: Regular Rate and Rhythm, Normal S1, S2, Peripheal Pulses Present. Negative for: Murmurs, Irregular Rhythm Abdomen: Positive for: Distention. Negative for: Tenderness, Peritoneal Signs Upper Extremity: Positive for: Normal Inspection Lower Extremity: Positive for: Normal Inspection Neurological: Positive for: Other (non verbal) - Medications Active Medications: Active Medications Generic Name Dose Route Start Last Admin Trade Name Freq PRN Reason Stop Dose Admin Aspirin 81 mg 06/20/18 09:00 06/23/18 10:12 Aspirin Chewable PO Not Given DAILY [facility] Guaifenesin 100 mg 06/19/18 21:47 06/26/18 08:48 Robitussin PO 100 mg Q4 PRN Administration Cough Haloperidol Lactate 5 mg 06/23/18 18:15 06/27/18 11:20 Haldol IVP 5 mg Q6 PRN Administration Agitation Voriconazole 300 mg/ Sodium 250 mls @ 125 mls/hr 06/26/18 21:00 06/28/18 09:43 Chloride IVPB 07/07/18 23:59 125 mls/hr Q12 [facility] Administration Protocol Cefepime HCl 1 gm/ Sodium 100 mls @ 100 mls/hr 06/25/18 17:00 06/28/18 09:43 Chloride IVPB 100 mls/hr Q8 [facility] Administration Protocol Ipratropium [place] 0.5 mg 06/28/18 02:00 06/28/18 13:17 Atrovent IH 0.5 mg RQ6 [facility] Administration Lactulose 20 gm 06/28/18 13:00 06/28/18 12:56 Enulose PO 20 gm TID [facility] Administration Levalbuterol HCl 1.25 mg 06/28/18 02:00 06/28/18 13:18 Xopenex INH 1.25 mg RQ6 [facility] Administration Levalbuterol HCl 0.63 mg 06/27/18 21:44 06/28/18 05:43 Xopenex INH 0.63 mg RQ2 PRN Administration Shortness of Breath Lorazepam 1 mg 06/26/18 20:33 06/27/18 13:45 Ativan IVP 1 mg Q6 PRN Administration Agitation Metoprolol Tartrate 50 mg 06/19/18 22:00 06/28/18 09:42 Lopressor PO Not Given Q12 [facility] Morphine Sulfate 4 mg 06/26/18 20:32 06/28/18 12:55 Morphine IVP 4 mg Q4 PRN Administration Pain, moderate (4-7) Ondansetron HCl 4 mg 06/20/18 01:16 06/20/18 01:57 Zofran Inj IVP 4 mg Q6 PRN Administration Nausea/Vomiting - Patient Studies Lab Studies: Lab Studies 06/28/18 06/27/18 06/23/18 Range/Units 08:53 05:30 15:22 PT 25.6 H (9.8-13.1) Seconds INR 2.3 Hepatitis A IgM Ab Negative (NEGATIVE) Hep Bs Antigen Negative (NEGATIVE) Hep B Core IgM Ab Negative (NEGATIVE) Hepatitis C Antibody Negative (NEGATIVE) Listeria Antibody <1:8 Laboratory Results - last 24 hr 06/23/18 06/27/18 06/28/18 15:22 05:30 08:53 PT 25.6 H INR 2.3 Hepatitis A IgM Ab Negative Hep Bs Antigen Negative Hep B Core IgM Ab Negative Hepatitis C Antibody Negative Listeria Antibody <1:8 Review of Systems - Review of Systems Systems not reviewed;Unavailable: Altered Mental Status Critical Care Progress Note - Nutrition Nutrition: Nutrition Category Date Time Status NPO Diet [DIET] Diets 06/21/18 Breakfast Active Assessment/Plan (1) Renal failure (ARF), acute on chronic Assessment and plan: 78yo M. PMHx COPD, CHF. Neuro: alert, not oriented to person, place or time. Head CT to r/o stroke. Pulm: no acute issues, breathing spontaneously on room air CV: hemodynamically stable Hem: severely thrombocytopenic, considering TTP. Renal: acute renal failure needing dialysis. Will perform plasmapharesis for suspected TTP. Endo: no acute issues GI: NPO, Nepro@20, goal 55. Free H2O flushes 100ml q8h. ID: Cefepime IV q8h. DVT proph - heparin sq GI proph - not currently indicated gallego for strict I/O's during acute illness Code status - full code Critical Care Time spent 35 minutes Multi-disciplinary rounds were performed with house staff, nursing, speech therapy, respiratory therapy, pharmacy and nutrition with integrated input from the primary team/attending and other consulting services. The documented time is cumulative and includes review of patient data/exams/labs/chart review and examination of the patient on rounds and throughout the day; time is exclusive of any procedures or teaching time. Current Visit: Yes Status: Acute Priority: High Comment: - Stage 4 - Started on HD - IV Lasix given - f/u repeat bun/cr
--- NOTE | 2018-06-28 15:32 | CT ---
Date of service: 06/28/2018 PROCEDURE: CT HEAD WITHOUT CONTRAST. HISTORY: r/o stroke COMPARISON: Noncontrast head CT 04/22/2018. TECHNIQUE: Axial computed tomography images were obtained through the head/brain without intravenous contrast. Radiation dose: Total exam DLP = 970.88 mGy-cm. This CT exam was performed using one or more of the following dose reduction techniques: Automated exposure control, adjustment of the mA and/or kV according to patient size, and/or use of iterative reconstruction technique. FINDINGS: HEMORRHAGE: No intracranial hemorrhage. BRAIN: Good corticomedullary differentiation is seen. Reiterated diffuse cerebral atrophy and chronic microangiopathy. No suspicious extra-axial fluid collection is identified and the midline brain anatomy appears grossly nonfocal as imaged. No mass effect identified. VENTRICLES: Unremarkable. No hydrocephalus. CALVARIUM: Unremarkable. PARANASAL SINUSES: Unremarkable as visualized. No significant inflammatory changes. MASTOID AIR CELLS: Minimal mastoid effusions reiterated, right greater than left sides. OTHER FINDINGS: None. IMPRESSION: Age related neuro degenerative changes are identified without acute intracranial findings as discussed above. No significant interval change compared prior head CT 04/22/2018. Follow up CT or MRI are available if clinically warranted.
[2018-06-28 15:48] LABS: ALB/GLOB RATIO 0.8 (1.0-2.1)
[2018-06-28 15:49] LABS: BILIRUBIN,DIRECT 4.8 mg/ml (0.0-0.4)
[2018-06-29] MEDS: Cefepime 1 GM in Sodium Chloride 0.9% 100 ML IVPB SCH ×2 (00:30→12:05)
[2018-06-29] MEDS: Levalbuterol 1.25 MG/3 ML Inhal Soln UD INH SCH ×4 (01:58→19:22)
[2018-06-29] MEDS: Ipratropium 0.02% Inhal Soln (0.5 mg/2.5 ml) UD IH SCH ×4 (01:58→19:22)
[2018-06-29 06:07] LABS: HEMOGLOBIN 8.8 g/dL (12.0-18.0); MEAN CELL VOLUME 89.5 fl (80.0-94.0); MEAN CORPUSCULAR HEMOGLOBIN 30.7 pg (27.0-31.0); MEAN CORPUSCULAR HGB CONC 34.3 g/dL (33.0-37.0); RBC 2.87 Mil/uL (4.40-5.90); RED CELL DISTRIBUTION WIDTH 17.5 % (11.5-14.5)
[2018-06-29 06:45] LABS: ALT/SGPT 1162 U/L (21-72); GFR NON-AFRICAN AMERICAN 11
[2018-06-29 06:46] LABS: ALB/GLOB RATIO 0.7 (1.0-2.1); ALBUMIN 2.8 g/dL (3.5-5.0); AST/SGOT 414 U/L (17-59); BILIRUBIN,DIRECT 4.3 mg/ml (0.0-0.4); BLOOD UREA NITROGEN > 120 mg/dl (9-20); CALCIUM 9.6 mg/dL (8.4-10.2)
[2018-06-29 08:40] LABS: INR 2.1; PROTHROMBIN TIME 23.9 Seconds (9.8-13.1)
[2018-06-29 09:24] LABS: ABG ALLEN TEST YES; ARTERIAL BLOOD GAS HCO3 17.8 mmol/L (21-28); ARTERIAL BLOOD GAS HEMOGLOBIN 8.9 g/dL (11.7-17.4); ARTERIAL BLOOD GAS O2 CAPACITY 12.2 mL/dL (16-24); ARTERIAL BLOOD GAS O2 CONTENT 11.7 ML/dL (15-23); ARTERIAL BLOOD GAS O2 SAT 96.2 % (95-98); ARTERIAL BLOOD GAS PCO2 43 mm/Hg (35-45); ARTERIAL BLOOD GAS PH 7.23 (7.35-7.45); ARTERIAL BLOOD GAS PO2 66 mm/Hg (80-100); ARTERIAL BLOOD GAS TCO2 19.3 mmol/L (22-28)
--- NOTE | 2018-06-29 10:27 | CP.PCM.PN ---
Subjective - Date & Time of Evaluation Date of Evaluation: 06/29/18 Time of Evaluation: 09:00 - Subjective Subjective: GI Fellow PGY 5 Progress Note Pt seen and examined at bedside, pt is still delirious, unable to answer questions. No abdominal pain on exam. + BM in days. Pt does have NGT. ROS: A 12pt ROS was unable to be obtained due to AMS. Objective - Vital Signs/Intake and Output Vital Signs (last 24 hours): Temp Pulse Resp BP Pulse Ox 97.6 F 88 12 140/70 99 06/29/18 08:00 06/29/18 08:00 06/29/18 08:00 06/29/18 08:00 06/29/18 08:00 Intake and Output: 06/29/18 06/29/18 06:59 18:59 Intake Total 1290 Output Total 120 Balance 1170 - Medications Medications: Current Medications Aspirin (Aspirin Chewable) 81 mg PO DAILY [facility] Last Admin: 06/23/18 10:12 Dose: Not Given Guaifenesin (Robitussin) 100 mg PO Q4 PRN PRN Reason: Cough Last Admin: 06/26/18 08:48 Dose: 100 mg Haloperidol Lactate (Haldol) 5 mg IVP Q6 PRN PRN Reason: Agitation Last Admin: 06/27/18 11:20 Dose: 5 mg Voriconazole 300 mg/ Sodium (Chloride) 250 mls @ 125 mls/hr IVPB Q12 [facility]; Prot ocol Stop: 07/07/18 23:59 Last Admin: 06/28/18 21:31 Dose: 125 mls/hr Cefepime HCl 1 gm/ Sodium (Chloride) 100 mls @ 100 mls/hr IVPB Q8 [facility]; Protocol Last Admin: 06/29/18 00:30 Dose: 100 mls/hr Ipratropium [place] (Atrovent) 0.5 mg IH RQ6 [facility] Last Admin: 06/29/18 08:14 Dose: 0.5 mg Levalbuterol HCl (Xopenex) 1.25 mg INH RQ6 [facility] Last Admin: 06/29/18 08:15 Dose: 1.25 mg Levalbuterol HCl (Xopenex) 0.63 mg INH RQ2 PRN PRN Reason: Shortness of Breath Last Admin: 06/28/18 05:43 Dose: 0.63 mg Metoprolol Tartrate (Lopressor) 50 mg PO Q12 [facility] Last Admin: 06/28/18 21:23 Dose: 50 mg Morphine Sulfate (Morphine) 4 mg IVP Q4 PRN PRN Reason: Pain, moderate (4-7) Last Admin: 06/29/18 07:54 Dose: 4 mg Ondansetron HCl (Zofran Inj) 4 mg IVP Q6 PRN PRN Reason: Nausea/Vomiting Last Admin: 06/20/18 01:57 Dose: 4 mg - Labs Labs: 06/29/18 04:20 06/29/18 04:20 PT 23.9 Seconds (9.8-13.1) H 06/29/18 08:25 INR 2.1 06/29/18 08:25 - Constitutional Appears: Toxic, Confused, Chronically Ill - Head Exam Head Exam: ATRAUMATIC, NORMAL INSPECTION, NORMOCEPHALIC - ENT Exam ENT Exam: Mucous Membranes Dry - Respiratory Exam Respiratory Exam: Rhonchi - Cardiovascular Exam Cardiovascular Exam: Tachycardia, +S1, +S2 - GI/Abdominal Exam GI & Abdominal Exam: Soft, Normal Bowel Sounds. absent: Distended, Guarding, Tenderness, Organomegaly - Extremities Exam Extremities Exam: Pedal Edema - Psychiatric Exam Psychiatric exam: Agitated - Skin Skin Exam: Dry, Intact, Normal Color, Warm Assessment and Plan - Assessment and Plan (Free Text) Assessment: 1. Elevated LFTs and INR 2. Delirium possible Hepatic encephalopathy 3. VDRF s/p extubation 4. COPD Exacerbation 5. Myelodysplastic Syndrome with severe thrombocytopenia 6. ARF s/p HD 7. PNA 8. AECHF 9. Elevated troponin Plan: -Continue supportive care in ICU -Acute Liver failure with LFT/INR trending down -Elevated LFTs multifactorial from Drug induced liver injury while on abx/antifungal/steroids and congestive hepatopathy with CHF/fluid overload, and well as hypotension with SBP 170s-->115 -Monitor LFTS and INR daily -Abd US with patent portal flow -Pt completed IV Vit K 10mg for 3 days -s/p IV NAC for three doses -Hepatitis profile negative -Acetaminophen level negative -Avoid hepatotoxic agents -Delirium possible Hepatic encephalopathy in setting of DEANA -Lactulose via NGT for 3 BM daily -Nutritional support -Optimize cardiac function and fluid status -Avoid hypotension -Transfuse as needed for MDS, hematology following -Please call with any questions or concerns
--- NOTE | 2018-06-29 10:31 | CP.PCM.PN ---
Subjective - Date & Time of Evaluation Date of Evaluation: 06/29/18 Time of Evaluation: 07:00 - Subjective Subjective: confused moaning NAD Objective - Vital Signs/Intake and Output Vital Signs (last 24 hours): Temp Pulse Resp BP Pulse Ox 97.6 F 88 12 140/70 99 06/29/18 08:00 06/29/18 08:00 06/29/18 08:00 06/29/18 08:00 06/29/18 08:00 Intake and Output: 06/29/18 06/29/18 06:59 18:59 Intake Total 1290 Output Total 120 Balance 1170 - Medications Medications: Current Medications Aspirin (Aspirin Chewable) 81 mg PO DAILY [facility] Last Admin: 06/23/18 10:12 Dose: Not Given Guaifenesin (Robitussin) 100 mg PO Q4 PRN PRN Reason: Cough Last Admin: 06/26/18 08:48 Dose: 100 mg Haloperidol Lactate (Haldol) 5 mg IVP Q6 PRN PRN Reason: Agitation Last Admin: 06/27/18 11:20 Dose: 5 mg Voriconazole 300 mg/ Sodium (Chloride) 250 mls @ 125 mls/hr IVPB Q12 [facility]; Protocol Stop: 07/07/18 23:59 Last Admin: 06/28/18 21:31 Dose: 125 mls/hr Cefepime HCl 1 gm/ Sodium (Chloride) 100 mls @ 100 mls/hr IVPB Q8 [facility]; Protocol Last Admin: 06/29/18 00:30 Dose: 100 mls/hr Ipratropium [address] (Atrovent) 0.5 mg IH RQ6 [facility] Last Admin: 06/29/18 08:14 Dose: 0.5 mg Levalbuterol HCl (Xopenex) 1.25 mg INH RQ6 [facility] Last Admin: 06/29/18 08:15 Dose: 1.25 mg Levalbuterol HCl (Xopenex) 0.63 mg INH RQ2 PRN PRN Reason: Shortness of Breath Last Admin: 06/28/18 05:43 Dose: 0.63 mg Metoprolol Tartrate (Lopressor) 50 mg PO Q12 [facility] Last Admin: 06/28/18 21:23 Dose: 50 mg Morphine Sulfate (Morphine) 4 mg IVP Q4 PRN PRN Reason: Pain, moderate (4-7) Last Admin: 06/29/18 07:54 Dose: 4 mg Ondansetron HCl (Zofran Inj) 4 mg IVP Q6 PRN PRN Reason: Nausea/Vomiting Last Admin: 06/20/18 01:57 Dose: 4 mg - Labs Labs: 06/29/18 04:20 06/29/18 04:20 PT 23.9 Seconds (9.8-13.1) H 06/29/18 08:25 INR 2.1 06/29/18 08:25 - Constitutional Appears: Non-toxic, Chronically Ill - Head Exam Head Exam: NORMOCEPHALIC - Eye Exam Eye Exam: PERRL - ENT Exam ENT Exam: Mucous Membranes Dry - Neck Exam Neck Exam: absent: Lymphadenopathy - Respiratory Exam Respiratory Exam: Decreased Breath Sounds - Cardiovascular Exam Cardiovascular Exam: REGULAR RHYTHM - GI/Abdominal Exam GI & Abdominal Exam: Distended, Soft Assessment and Plan (1) ACS (acute coronary syndrome) Status: Acute (2) Acute respiratory failure with hypoxia Status: Acute (3) COPD (chronic obstructive pulmonary disease) Status: Acute (4) Pneumonia Status: Acute (5) Renal failure (ARF), acute on chronic Status: Acute (6) Myelodysplasia (myelodysplastic syndrome) Status: Chronic (7) Disseminated aspergillosis Status: Acute - Assessment and Plan (Free Text) Assessment: for plasmapheresis
--- NOTE | 2018-06-29 11:25 | CP.CCUPN ---
<Tita Moseley - Last Filed: 06/29/18 11:49> CCU Subjective - Physician Review Subjective (Free Text): Opens eyes to voice,moaning, unable to follow commands. CCU Objective - Vital Signs / Intake & Output Vital Signs (Last 4 hours): Vital Signs Temp Pulse Resp BP Pulse Ox 06/29/18 08:00 97.6 F 88 12 140/70 99 Intake and Output (Last 8hrs): Intake & Output 06/28/18 06/29/18 06/29/18 22:59 06:59 14:59 Intake Total 935 840 Output Total 320 120 Balance 615 720 Intake: IV 200 Intake, Piggyback 600 200 Tube Feeding 285 440 Free Water Flush 50 Output: Urine 20 20 Urethral (Rosas) 20 20 Stool 300 100 - Physical Exam Head: Positive for: Atraumatic, Normocephalic Pupils: Positive for: PERRL, Sluggish Extroacular Muscles: Positive for: EOMI Conjunctiva: Positive for: Normal. Negative for: Injected, Icteric Ears: Positive for: Normal Mouth: Positive for: Moist Mucous Membranes Pharnyx: Positive for: Normal Nose (Internal): Positive for: Normal Inspection Neck: Positive for: Normal Range of Motion, Trachea Midline. Negative for: Meningeal Signs, MIDLINE TENDERNESS, Paraspinal Tenderness, JVD, Lymphadenopathy, Bruit, Other Respiratory/Chest: Positive for: Decreased Breath Sounds, Rales, Rhonchi. Negative for: Clear to Auscultation, Respiratory Distress, Accessory Muscle Use, Wheezes, Tachypneic, Tender to Palpation Cardiovascular: Positive for: Regular Rate and Rhythm, Normal S1, S2, Peripheal Pulses Present. Negative for: Murmurs, Irregular Rhythm Abdomen: Positive for: Distention. Negative for: Tenderness, Peritoneal Signs Upper Extremity: Positive for: Normal Inspection Lower Extremity: Positive for: Normal Inspection Neurological: Positive for: Other (non verbal) - Medications Active Medications: Active Medications Generic Name Dose Route Start Last Admin Trade Name Freq PRN Reason Stop Dose Admin Aspirin 81 mg 06/20/18 09:00 06/23/18 10:12 Aspirin Chewable PO Not Given DAILY TOMÁS Guaifenesin 100 mg 06/19/18 21:47 06/26/18 08:48 Robitussin PO 100 mg Q4 PRN Administration Cough Haloperidol Lactate 5 mg 06/23/18 18:15 06/27/18 11:20 Haldol IVP 5 mg Q6 PRN Administration Agitation Voriconazole 300 mg/ Sodium 250 mls @ 125 mls/hr 06/26/18 21:00 06/28/18 21:31 Chloride IVPB 07/07/18 23:59 125 mls/hr Q12 TOMÁS Administration Protocol Cefepime HCl 1 gm/ Sodium 100 mls @ 100 mls/hr 06/29/18 11:15 Chloride IVPB DAILY TOMÁS Protocol Ipratropium [place] 0.5 mg 06/28/18 02:00 06/29/18 08:14 Atrovent IH 0.5 mg RQ6 TOMÁS Administration Levalbuterol HCl 1.25 mg 06/28/18 02:00 06/29/18 08:15 Xopenex INH 1.25 mg RQ6 TOMÁS Administration Levalbuterol HCl 0.63 mg 06/27/18 21:44 06/28/18 05:43 Xopenex INH 0.63 mg RQ2 PRN Administration Shortness of Breath Metoprolol Tartrate 50 mg 06/19/18 22:00 06/28/18 21:23 Lopressor PO 50 mg Q12 TOMÁS Administration Morphine Sulfate 4 mg 06/26/18 20:32 06/29/18 07:54 Morphine IVP 4 mg Q4 PRN Administration Pain, moderate (4-7) Ondansetron HCl 4 mg 06/20/18 01:16 06/20/18 01:57 Zofran Inj IVP 4 mg Q6 PRN Administration Nausea/Vomiting - Patient Studies Lab Studies: Lab Studies 06/29/18 06/29/18 06/29/18 Range/Units 08:27 08:25 04:20 WBC (4.8-10.8) K/uL RBC (4.40-5.90) Mil/uL Hgb (12.0-18.0) g/dL Hct (35.0-51.0) % MCV (80.0-94.0) fl MCH (27.0-31.0) pg MCHC (33.0-37.0) g/dL RDW (11.5-14.5) % Plt Count (130-400) K/uL PT 23.9 H (9.8-13.1) Seconds INR 2.1 pCO2 43 (35-45) mm/Hg pO2 66 L (80-100) mm/Hg HCO3 17.8 L (21-28) mmol/L ABG pH 7.23 L (7.35-7.45) ABG Total CO2 19.3 L (22-28) mmol/L ABG O2 Saturation 96.2 (95-98) % ABG O2 Content 11.7 L (15-23) ML/dL ABG Base Excess -9.0 L (-2.0-3.0) mmol/L ABG Hemoglobin 8.9 L (11.7-17.4) g/dL ABG Carboxyhemoglobin 2.2 H (0.5-1.5) % POC ABG HHb (Measured) 3.7 (0.0-5.0) % ABG Methemoglobin 1.5 (0.0-3.0) % ABG O2 Capacity 12.2 L (16-24) mL/dL Abdirizak Test Yes A-a O2 Difference 94.0 mm/Hg Hgb O2 Saturation 92.5 L (95.0-98.0) % FiO2 30.0 % Blood Gas Comments 3l/m nc Sodium 149 H (132-148) mmol/l Potassium 4.0 (3.6-5.0) MMOL/L Chloride 112 H (98-107) mmol/L Carbon Dioxide 19 L (22-30) mmol/L Anion Gap 22 H (10-20) BUN > 120 H* D (9-20) mg/dl Creatinine 5.3 H (0.8-1.5) mg/dl Est GFR ( Amer) 13 Est GFR (Non-Af Amer) 11 Random Glucose 123 H (75-110) mg/dL Calcium 9.6 (8.4-10.2) mg/dL Total Bilirubin 4.6 H (0.2-1.3) mg/dl Direct Bilirubin 4.3 H (0.0-0.4) mg/ml AST 414 H D (17-59) U/L ALT 1162 H (21-72) U/L Alkaline Phosphatase 96 (38-126) U/L Total Protein 6.8 (6.3-8.2) G/DL Albumin 2.8 L (3.5-5.0) g/dL Globulin 4.0 H (2.2-3.9) gm/dL Albumin/Globulin Ratio 0.7 L (1.0-2.1) 06/29/18 06/28/18 Range/Units 04:20 15:00 WBC 6.0 (4.8-10.8) K/uL RBC 2.87 L (4.40-5.90) Mil/uL Hgb 8.8 L (12.0-18.0) g/dL Hct 25.7 L (35.0-51.0) % MCV 89.5 (80.0-94.0) fl MCH 30.7 (27.0-31.0) pg MCHC 34.3 (33.0-37.0) g/dL RDW 17.5 H (11.5-14.5) % Plt Count 6 L* (130-400) K/uL PT (9.8-13.1) Seconds INR pCO2 (35-45) mm/Hg pO2 (80-100) mm/Hg HCO3 (21-28) mmol/L ABG pH (7.35-7.45) ABG Total CO2 (22-28) mmol/L ABG O2 Saturation (95-98) % ABG O2 Content (15-23) ML/dL ABG Base Excess (-2.0-3.0) mmol/L ABG Hemoglobin (11.7-17.4) g/dL ABG Carboxyhemoglobin (0.5-1.5) % POC ABG HHb (Measured) (0.0-5.0) % ABG Methemoglobin (0.0-3.0) % ABG O2 Capacity (16-24) mL/dL Abdirizak Test A-a O2 Difference mm/Hg Hgb O2 Saturation (95.0-98.0) % FiO2 % Blood Gas Comments Sodium (132-148) mmol/l Potassium (3.6-5.0) MMOL/L Chloride (98-107) mmol/L Carbon Dioxide (22-30) mmol/L Anion Gap (10-20) BUN (9-20) mg/dl Creatinine (0.8-1.5) mg/dl Est GFR ( Amer) Est GFR (Non-Af Amer) Random Glucose (75-110) mg/dL Calcium (8.4-10.2) mg/dL Total Bilirubin 5.4 H (0.2-1.3) mg/dl Direct Bilirubin 4.8 H (0.0-0.4) mg/ml AST 725 H D (17-59) U/L ALT 1566 H (21-72) U/L Alkaline Phosphatase 87 (38-126) U/L Total Protein 6.9 (6.3-8.2) G/DL Albumin 3.0 L (3.5-5.0) g/dL Globulin 3.9 (2.2-3.9) gm/dL Albumin/Globulin Ratio 0.8 L (1.0-2.1) Laboratory Results - last 24 hr 06/28/18 06/29/18 06/29/18 15:00 04:20 04:20 WBC 6.0 RBC 2.87 L Hgb 8.8 L Hct 25.7 L MCV 89.5 MCH 30.7 MCHC 34.3 RDW 17.5 H Plt Count 6 L* PT INR pCO2 pO2 HCO3 ABG pH ABG Total CO2 ABG O2 Saturation ABG O2 Content ABG Base Excess ABG Hemoglobin ABG Carboxyhemoglobin POC ABG HHb (Measured) ABG Methemoglobin ABG O2 Capacity Abdirizak Test A-a O2 Difference Hgb O2 Saturation FiO2 Blood Gas Comments Sodium 149 H Potassium 4.0 Chloride 112 H Carbon Dioxide 19 L Anion Gap 22 H BUN > 120 H* D Creatinine 5.3 H Est GFR ( Amer) 13 Est GFR (Non-Af Amer) 11 Random Glucose 123 H Calcium 9.6 Total Bilirubin 5.4 H 4.6 H Direct Bilirubin 4.8 H 4.3 H AST 725 H D 414 H D ALT 1566 H 1162 H Alkaline Phosphatase 87 96 Total Protein 6.9 6.8 Albumin 3.0 L 2.8 L Globulin 3.9 4.0 H Albumin/Globulin Ratio 0.8 L 0.7 L 06/29/18 06/29/18 08:25 08:27 WBC RBC Hgb Hct MCV MCH MCHC RDW Plt Count PT 23.9 H INR 2.1 pCO2 43 pO2 66 L HCO3 17.8 L ABG pH 7.23 L ABG Total CO2 19.3 L ABG O2 Saturation 96.2 ABG O2 Content 11.7 L ABG Base Excess -9.0 L ABG Hemoglobin 8.9 L ABG Carboxyhemoglobin 2.2 H POC ABG HHb (Measured) 3.7 ABG Methemoglobin 1.5 ABG O2 Capacity 12.2 L Abdirizak Test Yes A-a O2 Difference 94.0 Hgb O2 Saturation 92.5 L FiO2 30.0 Blood Gas Comments 3l/m nc Sodium Potassium Chloride Carbon Dioxide Anion Gap BUN Creatinine Est GFR ( Amer) Est GFR (Non-Af Amer) Random Glucose Calcium Total Bilirubin Direct Bilirubin AST ALT Alkaline Phosphatase Total Protein Albumin Globulin Albumin/Globulin Ratio Critical Care Progress Note - Nutrition Nutrition: Nutrition Category Date Time Status NPO Diet [DIET] Diets 06/21/18 Breakfast Active Assessment/Plan - Assessment and Plan (Free Text) Assessment: 78 yo old Male with PMHx of HTN, CKD-4, Myelodysplastic Syndrome, CHF, Asthma and COPD with hx of recent discharge from [facility] for treatment of Aspergelliosis PNU admitted for Hypoxic respiratory failure 2/2 to COPD exacerbation vs HCAP (s/p extubation), Delirium, CHF, Pulmonary edema 2/2 to Acute renal failure, Thrombocytpenia, severe transamintitis. Concerns for TTP, pending arrangements for Plasmaphoresis as per Dr. Donaldson. #Delirium -Intermittently agitated -Etiology unknown -Neuro consulted -Head CT no acute findings, generalized atrophy (06/28/18) #Cardiovascular -Hemodynamically stable #Pulmonology -stable, saturating well on 3L NC -C/W bronchodilators GI# -Transaminitis improved #Heme -Thrombocytopenia worsened, 6K today (despite multiple platelet transfusions), few shistocytes on peripheral smear concerning for TTP -Plan for Plasmaphoresis today thru [facility]. 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 (see records form [facility]) -MRSA positive; precautions in place -C/W Voriconazole and Cefepime -ID on board #Nephro -ROSE, Worsening kidney function, Crea 5.3 today -HD 3x weekly -Nephro on board #FEN -NG tube feedings #DVT ppx, SCD's for now #Code Status- Full <Jorge Mills - Last Filed: 06/29/18 14:17> CCU Objective - Vital Signs / Intake & Output Vital Signs (Last 4 hours): Vital Signs Temp Pulse Resp BP Pulse Ox 06/29/18 13:09 12 06/29/18 12:04 99 H 134/61 06/29/18 12:00 97.3 F L 90 10 L 134/61 97 Intake and Output (Last 8hrs): Intake & Output 06/28/18 06/29/18 06/29/18 22:59 06:59 14:59 Intake Total 935 840 Output Total 320 120 Balance 615 720 Intake: IV 200 Intake, Piggyback 600 200 Tube Feeding 285 440 Free Water Flush 50 Output: Urine 20 20 Urethral (Rosas) 20 20 Stool 300 100 - Medications Active Medications: Active Medications Generic Name Dose Route Start Last Admin Trade Name Freq PRN Reason Stop Dose Admin Aspirin 81 mg 06/20/18 09:00 06/23/18 10:12 Aspirin Chewable PO Not Given DAILY TOMÁS Guaifenesin 100 mg 06/19/18 21:47 06/26/18 08:48 Robitussin PO 100 mg Q4 PRN Administration Cough Haloperidol Lactate 5 mg 06/23/18 18:15 06/29/18 12:05 Haldol IVP 5 mg Q6 PRN Administration Agitation Voriconazole 300 mg/ Sodium 250 mls @ 125 mls/hr 06/26/18 21:00 06/29/18 12:05 Chloride IVPB 07/07/18 23:59 125 mls/hr Q12 TOMÁS Administration Protocol Cefepime HCl 1 gm/ Sodium 100 mls @ 100 mls/hr 06/29/18 11:15 06/29/18 12:05 Chloride IVPB 100 mls/hr DAILY TOMÁS Administration Protocol Ipratropium [place] 0.5 mg 06/28/18 02:00 06/29/18 13:31 Atrovent IH 0.5 mg RQ6 TOMÁS Administration Levalbuterol HCl 1.25 mg 06/28/18 02:00 06/29/18 13:31 Xopenex INH 1.25 mg RQ6 TOMÁS Administration Levalbuterol HCl 0.63 mg 06/27/18 21:44 06/28/18 05:43 Xopenex INH 0.63 mg RQ2 PRN Administration Shortness of Breath Metoprolol Tartrate 50 mg 06/19/18 22:00 06/29/18 12:04 Lopressor PO 50 mg Q12 TOMÁS Administration Morphine Sulfate 4 mg 06/26/18 20:32 06/29/18 07:54 Morphine IVP 4 mg Q4 PRN Administration Pain, moderate (4-7) Ondansetron HCl 4 mg 06/20/18 01:16 06/20/18 01:57 Zofran Inj IVP 4 mg Q6 PRN Administration Nausea/Vomiting - Patient Studies Lab Studies: Microbiology Studies 06/28/18 08:56 Ova and Parasite Concentrate Exam - Final Stool Lab Studies 06/29/18 06/29/18 06/29/18 Range/Units 11:34 08:27 08:25 WBC (4.8-10.8) K/uL RBC (4.40-5.90) Mil/uL Hgb (12.0-18.0) g/dL Hct (35.0-51.0) % MCV (80.0-94.0) fl MCH (27.0-31.0) pg MCHC (33.0-37.0) g/dL RDW (11.5-14.5) % Plt Count (130-400) K/uL Manual Plt Count 11 L* (130-400) K/uL PT 23.9 H (9.8-13.1) Seconds INR 2.1 pCO2 43 (35-45) mm/Hg pO2 66 L (80-100) mm/Hg HCO3 17.8 L (21-28) mmol/L ABG pH 7.23 L (7.35-7.45) ABG Total CO2 19.3 L (22-28) mmol/L ABG O2 Saturation 96.2 (95-98) % ABG O2 Content 11.7 L (15-23) ML/dL ABG Base Excess -9.0 L (-2.0-3.0) mmol/L ABG Hemoglobin 8.9 L (11.7-17.4) g/dL ABG Carboxyhemoglobin 2.2 H (0.5-1.5) % POC ABG HHb (Measured) 3.7 (0.0-5.0) % ABG Methemoglobin 1.5 (0.0-3.0) % ABG O2 Capacity 12.2 L (16-24) mL/dL Abdirizak Test Yes A-a O2 Difference 94.0 mm/Hg Hgb O2 Saturation 92.5 L (95.0-98.0) % FiO2 30.0 % Blood Gas Comments 3l/m nc Sodium (132-148) mmol/l Potassium (3.6-5.0) MMOL/L Chloride (98-107) mmol/L Carbon Dioxide (22-30) mmol/L Anion Gap (10-20) BUN (9-20) mg/dl Creatinine (0.8-1.5) mg/dl Est GFR ( Amer) Est GFR (Non-Af Amer) Random Glucose (75-110) mg/dL Calcium (8.4-10.2) mg/dL Total Bilirubin (0.2-1.3) mg/dl Direct Bilirubin (0.0-0.4) mg/ml AST (17-59) U/L ALT (21-72) U/L Alkaline Phosphatase (38-126) U/L Total Protein (6.3-8.2) G/DL Albumin (3.5-5.0) g/dL Globulin (2.2-3.9) gm/dL Albumin/Globulin Ratio (1.0-2.1) 06/29/18 06/29/18 06/28/18 Range/Units 04:20 04:20 15:00 WBC 6.0 (4.8-10.8) K/uL RBC 2.87 L (4.40-5.90) Mil/uL Hgb 8.8 L (12.0-18.0) g/dL Hct 25.7 L (35.0-51.0) % MCV 89.5 (80.0-94.0) fl MCH 30.7 (27.0-31.0) pg MCHC 34.3 (33.0-37.0) g/dL RDW 17.5 H (11.5-14.5) % Plt Count 6 L* (130-400) K/uL Manual Plt Count (130-400) K/uL PT (9.8-13.1) Seconds INR pCO2 (35-45) mm/Hg pO2 (80-100) mm/Hg HCO3 (21-28) mmol/L ABG pH (7.35-7.45) ABG Total CO2 (22-28) mmol/L ABG O2 Saturation (95-98) % ABG O2 Content (15-23) ML/dL ABG Base Excess (-2.0-3.0) mmol/L ABG Hemoglobin (11.7-17.4) g/dL ABG Carboxyhemoglobin (0.5-1.5) % POC ABG HHb (Measured) (0.0-5.0) % ABG Methemoglobin (0.0-3.0) % ABG O2 Capacity (16-24) mL/dL Abdirizak Test A-a O2 Difference mm/Hg Hgb O2 Saturation (95.0-98.0) % FiO2 % Blood Gas Comments Sodium 149 H (132-148) mmol/l Potassium 4.0 (3.6-5.0) MMOL/L Chloride 112 H (98-107) mmol/L Carbon Dioxide 19 L (22-30) mmol/L Anion Gap 22 H (10-20) BUN > 120 H* D (9-20) mg/dl Creatinine 5.3 H (0.8-1.5) mg/dl Est GFR ( Amer) 13 Est GFR (Non-Af Amer) 11 Random Glucose 123 H (75-110) mg/dL Calcium 9.6 (8.4-10.2) mg/dL Total Bilirubin 4.6 H 5.4 H (0.2-1.3) mg/dl Direct Bilirubin 4.3 H 4.8 H (0.0-0.4) mg/ml AST 414 H D 725 H D (17-59) U/L ALT 1162 H 1566 H (21-72) U/L Alkaline Phosphatase 96 87 (38-126) U/L Total Protein 6.8 6.9 (6.3-8.2) G/DL Albumin 2.8 L 3.0 L (3.5-5.0) g/dL Globulin 4.0 H 3.9 (2.2-3.9) gm/dL Albumin/Globulin Ratio 0.7 L 0.8 L (1.0-2.1) Laboratory Results - last 24 hr 06/28/18 06/29/18 06/29/18 15:00 04:20 04:20 WBC 6.0 RBC 2.87 L Hgb 8.8 L Hct 25.7 L MCV 89.5 MCH 30.7 MCHC 34.3 RDW 17.5 H Plt Count 6 L* Manual Plt Count PT INR pCO2 pO2 HCO3 ABG pH ABG Total CO2 ABG O2 Saturation ABG O2 Content ABG Base Excess ABG Hemoglobin ABG Carboxyhemoglobin POC ABG HHb (Measured) ABG Methemoglobin ABG O2 Capacity Abdirizak Test A-a O2 Difference Hgb O2 Saturation FiO2 Blood Gas Comments Sodium 149 H Potassium 4.0 Chloride 112 H Carbon Dioxide 19 L Anion Gap 22 H BUN > 120 H* D Creatinine 5.3 H Est GFR ( Amer) 13 Est GFR (Non-Af Amer) 11 Random Glucose 123 H Calcium 9.6 Total Bilirubin 5.4 H 4.6 H Direct Bilirubin 4.8 H 4.3 H AST 725 H D 414 H D ALT 1566 H 1162 H Alkaline Phosphatase 87 96 Total Protein 6.9 6.8 Albumin 3.0 L 2.8 L Globulin 3.9 4.0 H Albumin/Globulin Ratio 0.8 L 0.7 L 06/29/18 06/29/18 06/29/18 08:25 08:27 11:34 WBC RBC Hgb Hct MCV MCH MCHC RDW Plt Count Manual Plt Count 11 L* PT 23.9 H INR 2.1 pCO2 43 pO2 66 L HCO3 17.8 L ABG pH 7.23 L ABG Total CO2 19.3 L ABG O2 Saturation 96.2 ABG O2 Content 11.7 L ABG Base Excess -9.0 L ABG Hemoglobin 8.9 L ABG Carboxyhemoglobin 2.2 H POC ABG HHb (Measured) 3.7 ABG Methemoglobin 1.5 ABG O2 Capacity 12.2 L Abdirizak Test Yes A-a O2 Difference 94.0 Hgb O2 Saturation 92.5 L FiO2 30.0 Blood Gas Comments 3l/m nc Sodium Potassium Chloride Carbon Dioxide Anion Gap BUN Creatinine Est GFR ( Amer) Est GFR (Non-Af Amer) Random Glucose Calcium Total Bilirubin Direct Bilirubin AST ALT Alkaline Phosphatase Total Protein Albumin Globulin Albumin/Globulin Ratio Critical Care Progress Note - Nutrition Nutrition: Nutrition Category Date Time Status NPO Diet [DIET] Diets 06/21/18 Breakfast Active Assessment/Plan (1) Renal failure (ARF), acute on chronic Current Visit: Yes Status: Acute Priority: High Comment: - Stage 4 - Started on HD - IV Lasix given - f/u repeat bun/cr Attending/Attestation - Attestation I have personally seen and examined this patient.: Yes I have fully participated in the care of the patient.: Yes I have reviewed all pertinent clinical information: Yes Notes (Text): 06/29/18 13:50 I have seen and examined the patient. Medical records, lab studies, and imaging were reviewed by me and a management plan was formulated on multidisciplinary rounds with resident Dr. Moseley. I agree with their above documented assessment and plan. Patient is still obtunded. Head CT shows only old microangiopathic changes. Hypoxic on ABG, will start on high flow nasal cannula. Attempting plasmapharesis for suspected TTP. Thrombocytopenia is getting worse. There is no family to make decisions for the patient, only a friend who does not have POA. Dr. Epps, Hem/Onc, and I are in agreement to try plasmapharesis to help improve the clinical course of this patient, hopefully for his benefit. Critical Care Time 35 minutes. Multi-disciplinary rounds were performed with house staff, nursing, speech therapy, respiratory therapy, pharmacy and nutrition with integrated input from the primary team/attending and other consulting services. The documented time is cumulative and includes review of patient data/exams/labs/chart review and examination of the patient on rounds and throughout the day; time is exclusive of any procedures or teaching time.
--- NOTE | 2018-06-29 11:25 | RAD ---
Date of service: 06/29/2018 HISTORY: chest portable COMPARISON: 06/27/2018 FINDINGS: LUNGS: Increasing opacity at right base suspicious for developing pneumonia. No abnormal opacity elsewhere. PLEURA: No significant pleural effusion identified, no pneumothorax apparent. CARDIOVASCULAR: Heart size grossly normal. Sternotomy wires noted. No congestive change. Nasogastric tube, right tunneled central venous dialysis catheter and right PICC catheter are all grossly unchanged. OSSEOUS STRUCTURES: No significant abnormalities. VISUALIZED UPPER ABDOMEN: Normal. OTHER FINDINGS: None. IMPRESSION: Possible developing pneumonia at right lung base.
--- NOTE | 2018-06-29 11:39 | CP.PCM.PN ---
Subjective - Date & Time of Evaluation Date of Evaluation: 06/29/18 Time of Evaluation: 11:32 - Subjective Subjective: Pt's condition is deteriorating even further, His creatinine is 5.3 and platelets are 6K. Contacted the [facility] services and they will be here for a plasmapheresis at least one try to see if there is any improvement. If there is no improvement, will talk to the neice for a DNR. Objective - Vital Signs/Intake and Output Vital Signs (last 24 hours): Temp Pulse Resp BP Pulse Ox 97.6 F 88 12 140/70 99 06/29/18 08:00 06/29/18 08:00 06/29/18 08:00 06/29/18 08:00 06/29/18 08:00 Intake and Output: 06/29/18 06/29/18 06:59 18:59 Intake Total 1290 Output Total 120 Balance 1170 - Medications Medications: Current Medications Aspirin (Aspirin Chewable) 81 mg PO DAILY TOMÁS Last Admin: 06/23/18 10:12 Dose: Not Given Guaifenesin (Robitussin) 100 mg PO Q4 PRN PRN Reason: Cough Last Admin: 06/26/18 08:48 Dose: 100 mg Haloperidol Lactate (Haldol) 5 mg IVP Q6 PRN PRN Reason: Agitation Last Admin: 06/27/18 11:20 Dose: 5 mg Voriconazole 300 mg/ Sodium (Chloride) 250 mls @ 125 mls/hr IVPB Q12 TOMÁS; Protocol Stop: 07/07/18 23:59 Last Admin: 06/28/18 21:31 Dose: 125 mls/hr Cefepime HCl 1 gm/ Sodium (Chloride) 100 mls @ 100 mls/hr IVPB DAILY TOMÁS; Protocol Ipratropium [place] (Atrovent) 0.5 mg IH RQ6 TOMÁS Last Admin: 06/29/18 08:14 Dose: 0.5 mg Levalbuterol HCl (Xopenex) 1.25 mg INH RQ6 TOMÁS Last Admin: 06/29/18 08:15 Dose: 1.25 mg Levalbuterol HCl (Xopenex) 0.63 mg INH RQ2 PRN PRN Reason: Shortness of Breath Last Admin: 06/28/18 05:43 Dose: 0.63 mg Metoprolol Tartrate (Lopressor) 50 mg PO Q12 TOMÁS Last Admin: 06/28/18 21:23 Dose: 50 mg Morphine Sulfate (Morphine) 4 mg IVP Q4 PRN PRN Reason: Pain, moderate (4-7) Last Admin: 06/29/18 07:54 Dose: 4 mg Ondansetron HCl (Zofran Inj) 4 mg IVP Q6 PRN PRN Reason: Nausea/Vomiting Last Admin: 06/20/18 01:57 Dose: 4 mg - Labs Labs: 06/29/18 04:20 06/29/18 04:20 PT 23.9 Seconds (9.8-13.1) H 06/29/18 08:25 INR 2.1 06/29/18 08:25
--- NOTE | 2018-06-29 12:05 | CP.PCM.PN ---
Subjective - Date & Time of Evaluation Date of Evaluation: 06/29/18 Time of Evaluation: 12:04 - Subjective Subjective: pt is drowsy, not following commands, for possible plasmapheresis today as per crap shooter Objective - Vital Signs/Intake and Output Vital Signs (last 24 hours): Temp Pulse Resp BP Pulse Ox 97.6 F 88 12 140/70 99 06/29/18 08:00 06/29/18 08:00 06/29/18 08:00 06/29/18 08:00 06/29/18 08:00 Intake and Output: 06/29/18 06/29/18 06:59 18:59 Intake Total 1290 Output Total 120 Balance 1170 - Medications Medications: Current Medications Aspirin (Aspirin Chewable) 81 mg PO DAILY TOMÁS Last Admin: 06/23/18 10:12 Dose: Not Given Guaifenesin (Robitussin) 100 mg PO Q4 PRN PRN Reason: Cough Last Admin: 06/26/18 08:48 Dose: 100 mg Haloperidol Lactate (Haldol) 5 mg IVP Q6 PRN PRN Reason: Agitation Last Admin: 06/27/18 11:20 Dose: 5 mg Voriconazole 300 mg/ Sodium (Chloride) 250 mls @ 125 mls/hr IVPB Q12 TOMÁS; Protocol Stop: 07/07/18 23:59 Last Admin: 06/28/18 21:31 Dose: 125 mls/hr Cefepime HCl 1 gm/ Sodium (Chloride) 100 mls @ 100 mls/hr IVPB DAILY TOMÁS; Protocol Ipratropium [place] (Atrovent) 0.5 mg IH RQ6 TOMÁS Last Admin: 06/29/18 08:14 Dose: 0.5 mg Levalbuterol HCl (Xopenex) 1.25 mg INH RQ6 TOMÁS Last Admin: 06/29/18 08:15 Dose: 1.25 mg Levalbuterol HCl (Xopenex) 0.63 mg INH RQ2 PRN PRN Reason: Shortness of Breath Last Admin: 06/28/18 05:43 Dose: 0.63 mg Metoprolol Tartrate (Lopressor) 50 mg PO Q12 [facility] Last Admin: 06/28/18 21:23 Dose: 50 mg Morphine Sulfate (Morphine) 4 mg IVP Q4 PRN PRN Reason: Pain, moderate (4-7) Last Admin: 06/29/18 07:54 Dose: 4 mg Ondansetron HCl (Zofran Inj) 4 mg IVP Q6 PRN PRN Reason: Nausea/Vomiting Last Admin: 06/20/18 01:57 Dose: 4 mg - Labs Labs: 06/29/18 04:20 06/29/18 04:20 PT 23.9 Seconds (9.8-13.1) H 06/29/18 08:25 INR 2.1 06/29/18 08:25 - Constitutional Appears: No Acute Distress - Head Exam Head Exam: ATRAUMATIC, NORMAL INSPECTION, NORMOCEPHALIC - Eye Exam Eye Exam: EOMI, Normal appearance, PERRL - ENT Exam ENT Exam: Mucous Membranes Dry - Neck Exam Neck Exam: Normal Inspection - Respiratory Exam Respiratory Exam: Clear to Ausculation Bilateral, NORMAL BREATHING PATTERN - Cardiovascular Exam Cardiovascular Exam: REGULAR RHYTHM, +S1, +S2 - GI/Abdominal Exam GI & Abdominal Exam: Soft, Normal Bowel Sounds - Extremities Exam Additional comments: no edema of legs - Neurological Exam Neurological Exam: Altered Additional comments: drowsy, not following commands, b/l UE restrained - Skin Skin Exam: Normal Color Assessment and Plan - Assessment and Plan (Free Text) Assessment: Mr. Farmer is 78 yo wm with pmh/o MDS, cad, s/p CABG about 15 yrs ago, hypothyroidism, CHF, COPD was admitted to [facility] for about 2 months as per pt's family. who discharged about 2 weks ago was presedted to ER on with cc/o severe cough, sob, cough [id number] yellow sputum for few days. s/p intubation with worsening renal function , hyperkalemia 1. ROES on ckd-4 2. s/p Hyperkalemia 3. Acute resp. failure 4. s/p intubation and extubation 5. Acute exaccerbation of COPD 6. MDS 7. Anemia 8. Thrombocytopenia r/o TTP c/w HD 3 x a week, for hd today for possible plasmapheresis today as per crap shooter d/w Dr. Adelso Donaldson this morning in rounds over all prognosis is poor
--- NOTE | 2018-06-29 12:46 | PQF ---
PROVIDER RESPONSE TEXT: Provider was unable to determine a response for this query. REVIEWER QUERY TEXT: Conflicting Documentation Clarification Please clarify if NSTEMI is ruled in or ruled out. Conflicting documentation, see below. 06/[address] Pedraza: Consider NSTEMI 06/[address] Perkins: Patient has known CAD s/p CABG. His troponin is elevated but in the setting of renal failure cannot be interpreted. His presentation is not indicative of Acut e Coronary Syndrome 06/21 [employer] Technician: Acute coronary syndrome: EKG done showed no acute changes A single mention or documentation of multiple diagnoses for the same clinical presentation appears in the record. Please clarify the diagnosis/diagnoses. Please also document if the condition is: -- Confirmed and current -- Confirmed, treated and resolved -- Ruled out -- Other, please specify The patient's Clinical Indicators include: EKG: Sinus tachycardia, ST and T wave abnormality consider lateral ischemia. Troponin 0.0430, ( normal ) , 0/296, 0.399, 0.694 all elevated Medication: Aspirin, Lopressor Query created by: Cheryl Bond on 06/24/2018 7:01 AM Electronically signed by: Enrrique Howard 06/29/2018 12:42 PM
--- NOTE | 2018-06-29 12:46 | PQF ---
PROVIDER RESPONSE TEXT: Hcap bacteria unknown REVIEWER QUERY TEXT: Pneumonia Specificity 2 ( TWO ) Queries: 1) Please clarify if Pneumonia is ruled in for this admission. 2) Please clarify the type/causative organism ( Includes probable or suspected ) HCAP, HAP and CAP represent the method of acquisition and not the specific type of pneumonia. Pneumonia is documented in the Medical Record. Please specify the type of pneumonia and the causative organism (includes probable or suspected) Such as: Type: -- Aspiration pneumonia (please also specify the aspirate) -- Bacterial (please document suspected or probable organism) -- Bronchopneumonia (please document suspected or probable organism) -- Interstitial pneumonia -- Organizing pneumonia / BOOP -- Pneumonia with influenza, yelitza flu, or H1N1 flu -- RSV -- Tuberculosis, pulmonary -- Viral -- Other, please specify The patient's Clinical Indicators include: Recent admission 2 weeks for Pneumonia. Now presents with a productive cough and SOB. + COPD exacerba tion WBC 1.1 , TEMP 98.2 CXR: Persistent chronic infiltrate left lung. Rx: IVAB Vancomycin and Zosyn Query created by: Cheryl Bond on 06/24/2018 7:00 AM Electronically signed by: Enrrique Howard 06/29/2018 12:42 PM
--- NOTE | 2018-06-29 13:02 | CP.PCM.PN ---
Subjective - Date & Time of Evaluation Date of Evaluation: 06/29/18 Time of Evaluation: 11:00 - Subjective Subjective: patient seen and examined at bedside. discussed with nursing staff and aqueduct and reservoir keeper. will attempt plasmapheresis. grave prognosis. will need to consider hospice eval. Objective - Vital Signs/Intake and Output Vital Signs (last 24 hours): Temp Pulse Resp BP Pulse Ox 97.3 F L 99 H 10 L 134/61 97 06/29/18 12:00 06/29/18 12:04 06/29/18 12:00 06/29/18 12:04 06/29/18 12:00 Intake and Output: 06/29/18 06/29/18 06:59 18:59 Intake Total 1290 Output Total 120 Balance 1170 - Medications Medications: Current Medications Aspirin (Aspirin Chewable) 81 mg PO DAILY TOMÁS Last Admin: 06/23/18 10:12 Dose: Not Given Guaifenesin (Robitussin) 100 mg PO Q4 PRN PRN Reason: Cough Last Admin: 06/26/18 08:48 Dose: 100 mg Haloperidol Lactate (Haldol) 5 mg IVP Q6 PRN PRN Reason: Agitation Last Admin: 06/29/18 12:05 Dose: 5 mg Voriconazole 300 mg/ Sodium (Chloride) 250 mls @ 125 mls/hr IVPB Q12 TOMÁS; Protocol Stop: 07/07/18 23:59 Last Admin: 06/29/18 12:05 Dose: 125 mls/hr Cefepime HCl 1 gm/ Sodium (Chloride) 100 mls @ 100 mls/hr IVPB DAILY TOMÁS; Protocol Last Admin: 06/29/18 12:05 Dose: 100 mls/hr Ipratropium [place] (Atrovent) 0.5 mg IH RQ6 TOMÁS Last Admin: 06/29/18 08:14 Dose: 0.5 mg Levalbuterol HCl (Xopenex) 1.25 mg INH RQ6 TOMÁS Last Admin: 06/29/18 08:15 Dose: 1.25 mg Levalbuterol HCl (Xopenex) 0.63 mg INH RQ2 PRN PRN Reason: Shortness of Breath Last Admin: 06/28/18 05:43 Dose: 0.63 mg Metoprolol Tartrate (Lopressor) 50 mg PO Q12 TOMÁS Last Admin: 06/29/18 12:04 Dose: 50 mg Morphine Sulfate (Morphine) 4 mg IVP Q4 PRN PRN Reason: Pain, moderate (4-7) Last Admin: 06/29/18 07:54 Dose: 4 mg Ondansetron HCl (Zofran Inj) 4 mg IVP Q6 PRN PRN Reason: Nausea/Vomiting Last Admin: 06/20/18 01:57 Dose: 4 mg - Labs Labs: 06/29/18 04:20 06/29/18 04:20 PT 23.9 Seconds (9.8-13.1) H 06/29/18 08:25 INR 2.1 06/29/18 08:25 - Constitutional Appears: Chronically Ill - Respiratory Exam Respiratory Exam: NORMAL BREATHING PATTERN - Cardiovascular Exam Cardiovascular Exam: +S1, +S2 - Skin Skin Exam: Normal Color, Warm Assessment and Plan - Assessment and Plan (Free Text) Assessment: 78 yo with multiple medical conditions currently with severe thrombocytopenia and lethargic. heme evaluating for plasmapheresis consider hospice eval appreciate psych social worker recommendations c/w plan as ordered
[2018-06-29] MEDS ORDERED: DiphenhydrAMINE 50 mg/ml Inj IVP ONE (16:51)
[2018-06-29] MEDS ORDERED: Calcium Gluconate 4.65 mEq/10 ml Inj IV ONE (16:51)
--- NOTE | 2018-06-29 18:45 | PQF ---
PROVIDER RESPONSE TEXT: The patient has acute on chronic diastolic dysfunction REVIEWER QUERY TEXT: CHF Acuity and Type Congestive Heart Failure is documented in the Medical Record. Please document the TYPE and ACUITY (in cludes probable or suspected) Such as: Type: -- Systolic -- Diastolic -- Combined -- Other, please specify Acuity: -- Acute -- Chronic -- Acute on chronic -- Other, please specify Also please document the underlying cause of the CHF (includes probable or suspected) The patient's Clinical Indicators include: PMH of CHF. ECHO: The systolic function is severely impaired. The estimated ejection fraction is 25-30% Transmi tral Doppler flow pattern is Grade II-pseudonormal filling dynamics. The left atrium is mildly dilated. Mild to moderate aortic regurgitation is present. There is moderate to severe mitral valve regurgitation. There is mild tricuspid valve regurgitation n oted. RVSP is calculated at 45 mm Hg. Medication: Lasix IV, Lopressor Query created by: Cheryl Bond on 06/22/2018 1:20 PM Electronically signed by: Trniy Perkins MD 06/29/2018 6:41 PM
[2018-06-30] MEDS: Levalbuterol 1.25 MG/3 ML Inhal Soln UD INH SCH ×3 (01:09→13:19)
[2018-06-30] MEDS: Ipratropium 0.02% Inhal Soln (0.5 mg/2.5 ml) UD IH SCH ×3 (01:09→13:18)
[2018-06-30 05:55] LABS: HEMOGLOBIN 8.6 g/dL (12.0-18.0); MEAN CELL VOLUME 88.8 fl (80.0-94.0); MEAN CORPUSCULAR HEMOGLOBIN 30.3 pg (27.0-31.0); MEAN CORPUSCULAR HGB CONC 34.2 g/dL (33.0-37.0); RBC 2.83 Mil/uL (4.40-5.90); RED CELL DISTRIBUTION WIDTH 17.2 % (11.5-14.5); WHITE BLOOD COUNT 3.1 K/uL (4.8-10.8)
[2018-06-30 06:11] LABS: BILIRUBIN,DIRECT 3.1 mg/ml (0.0-0.4)
[2018-06-30 07:17] LABS: ALB/GLOB RATIO 0.9 (1.0-2.1)
--- NOTE | 2018-06-30 08:40 | CON ---
DATE: 06/29/2018 NEUROLOGY CONSULTATION Neurology consult called by [facility] attending, Dr. Mills. HISTORY OF PRESENT ILLNESS: Mr. Romeo is a 78-year-old male who has a history of acute respiratory failure, COPD who was admitted to the hospital on 06/18/2018 with shortness of breath, dyspnea, COPD, CHF, and pneumonia. He was treated for pneumonia and was doing well on the floor and actually had a PICC line placed on 06/24/2018. When on 06/24/2018, post-PICC line, he had rapid response due to respiratory distress and was transferred to ICU. He underwent hemodialysis along close interval, and he was monitored in the ICU. He was awake. He was alert, oriented x3. However, he was pancytopenic, and he is also being treated for MDS . He came to have hemodialysis and consult was called today for mental status which is not improving. On examination today, the patient is groaning, is not following commands and is not intubated. PAST MEDICAL HISTORY: Of note, the patient has following past medical history: Dementia, COPD, hemodialysis, ESRD, bilateral PNA, MDS, pancytopenia. He is now being treated for dementia. He is not on any home medications to treat this disorder. MEDICATIONS: Currently, he is on following medications: Aspirin, Ceftin, guaifenesin, Haldol, albuterol, metoprolol, ondansetron, and voriconazole. IMAGING DATA: No new imaging has been done as of yet. PHYSICAL EXAMINATION: NEUROLOGIC: His neurologic exam is as follows. He is awake. He is not alert, looked confused. He is not following commands. He is now oriented to person, time, and place. He grunts to sternal rub, moving all extremities equally. There is no facial asymmetry. Pupils are equal, round, and reactive to light. . There is no clear verbal output; however, he does groan . Motor: He is moving all extremities equally. Sensory is not accurate. Gait not tested. Reflexes are +2 to upper and lower bilaterally. Of note, he is on contact isolation. LABORATORY DATA: Labs are as follows: White count 6, hemoglobin 8.8, hematocrit 25.7, platelets 6 and now 11. Sodium 149, chloride 112, BUN 120, creatinine 53. AST 414, ALT 1062. Hepatitis panel was done and is not positive. IMPRESSION AND PLAN: This is a 78-year-old male with toxic metabolic encephalopathy. He did not have any focal findings suggestive of stroke. He is not having any findings suggestive of herpes encephalitis. I would recommend bedside electroencephalogram in the morning if available. Thank you for this interesting consult. Our team will follow. Sylvie Boothe MD
--- NOTE | 2018-06-30 10:21 | CP.PCM.PN ---
Subjective - Date & Time of Evaluation Date of Evaluation: 06/30/18 Time of Evaluation: 09:00 - Subjective Subjective: GI Fellow PGY5 Progress Note Pt seen and evaluated at bedside, lethargic, unresponsive, delirious. No change. Tolerating TF, +BM. ROS: A 12pt ROS was unable to be obtained due to AMS. Objective - Vital Signs/Intake and Output Vital Signs (last 24 hours): Temp Pulse Resp BP Pulse Ox 97.6 F 79 15 175/78 H 99 06/30/18 08:00 06/30/18 08:00 06/30/18 08:00 06/30/18 08:00 06/30/18 08:00 Intake and Output: 06/30/18 06/30/18 06:59 18:59 Intake Total 1110 Output Total 1000 Balance 110 - Medications Medications: Current Medications Aspirin (Aspirin Chewable) 81 mg PO DAILY TOMÁS Last Admin: 06/23/18 10:12 Dose: Not Given Guaifenesin (Robitussin) 100 mg PO Q4 PRN PRN Reason: Cough Last Admin: 06/26/18 08:48 Dose: 100 mg Haloperidol Lactate (Haldol) 5 mg IVP Q6 PRN PRN Reason: Agitation Last Admin: 06/29/18 12:05 Dose: 5 mg Voriconazole 300 mg/ Sodium (Chloride) 250 mls @ 125 mls/hr IVPB Q12 TOMÁS; Protocol Stop: 07/07/18 23:59 Last Admin: 06/30/18 00:41 Dose: 125 mls/hr Cefepime HCl 1 gm/ Sodium (Chloride) 100 mls @ 100 mls/hr IVPB DAILY TOMÁS; Protocol Last Admin: 06/29/18 12:05 Dose: 100 mls/hr Ipratropium [place] (Atrovent) 0.5 mg IH RQ6 TOMÁS Last Admin: 06/30/18 07:48 Dose: 0.5 mg Levalbuterol HCl (Xopenex) 1.25 mg INH RQ6 TOMÁS Last Admin: 06/30/18 07:48 Dose: 1.25 mg Levalbuterol HCl (Xopenex) 0.63 mg INH RQ2 PRN PRN Reason: Shortness of Breath Last Admin: 06/28/18 05:43 Dose: 0.63 mg Metoprolol Tartrate (Lopressor) 50 mg PO Q12 TOMÁS Last Admin: 06/30/18 00:42 Dose: 50 mg Morphine Sulfate (Morphine) 4 mg IVP Q6 PRN PRN Reason: Pain, severe (8-10) Morphine Sulfate (Morphine) 2 mg IVP Q6 PRN PRN Reason: Pain, moderate (4-7) Last Admin: 06/30/18 06:32 Dose: 2 mg Ondansetron HCl (Zofran Inj) 4 mg IVP Q6 PRN PRN Reason: Nausea/Vomiting Last Admin: 06/20/18 01:57 Dose: 4 mg - Labs Labs: 06/30/18 04:20 06/30/18 06:02 PT 23.9 Seconds (9.8-13.1) H 06/29/18 08:25 INR 2.1 06/29/18 08:25 - Constitutional Appears: Agitated, Confused, Chronically Ill - Head Exam Head Exam: ATRAUMATIC, NORMAL INSPECTION, NORMOCEPHALIC - ENT Exam ENT Exam: Mucous Membranes Dry - Cardiovascular Exam Cardiovascular Exam: Tachycardia, +S1, +S2 - GI/Abdominal Exam GI & Abdominal Exam: Soft, Normal Bowel Sounds. absent: Distended, Firm, Tenderness - Psychiatric Exam Psychiatric exam: Agitated - Skin Skin Exam: Dry, Intact, Normal Color, Warm Assessment and Plan - Assessment and Plan (Free Text) Assessment: 1. Elevated LFTs and INR 2. Delirium possible Hepatic encephalopathy 3. VDRF s/p extubation 4. COPD Exacerbation 5. Myelodysplastic Syndrome with severe thrombocytopenia 6. ARF s/p HD 7. PNA 8. AECHF 9. Elevated troponin Plan: -Continue supportive care in ICU -Elevated LFTs multifactorial from Drug induced liver injury while on abx/antifungal/steroids and congestive hepatopathy with CHF/fluid overload, and well as hypotension -Monitor LFTS and INR daily, trending down -Abd US with patent portal flow -s/p IV Vit K 10mg for 3 days -s/p IV NAC for three doses -Hepatitis profile negative -Acetaminophen level negative -Avoid hepatotoxic agents -Delirium possible Hepatic encephalopathy -Lactulose via NGT for 3 BM daily -Nutritional support -Optimize cardiac function and fluid status -Avoid hypotension -Transfuse as needed for MDS, hematology following -Please call with any questions or concerns
[2018-06-30] MEDS: Cefepime 1 GM in Sodium Chloride 0.9% 100 ML IVPB SCH (10:40)
--- NOTE | 2018-06-30 10:49 | CP.CCUPN ---
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 Poor prognosis. Received Plasmaphoresis. Opens eyes to voice,moaning, unable to follow commands. Discussed poor prognosis with niece and family friend. Recommending shifting treatment focus to comfort care measures given failed improvement with all interventions and family agreed. CCU Objective - Vital Signs / Intake & Output Vital Signs (Last 4 hours): Vital Signs Temp Pulse Resp BP Pulse Ox 06/30/18 08:00 97.6 F 79 15 175/78 H 99 Intake and Output (Last 8hrs): Intake & Output 06/29/18 06/30/18 06/30/18 22:59 06:59 14:59 Intake Total 1380 790 Output Total 250 1000 Balance 1130 -210 Intake: Intake, Piggyback 400 250 Tube Feeding 880 440 Free Water Flush 100 100 Output: Urine 50 50 Urethral (Rosas) 50 50 Stool 200 950 - Physical Exam Physical Exam Limitations: Positive for: Altered Mental Status (obtunded with intermittent periods of moaning ) Head: Positive for: Atraumatic, Normocephalic Pupils: Positive for: PERRL, Sluggish Extroacular Muscles: Positive for: EOMI Conjunctiva: Positive for: Normal. Negative for: Injected, Icteric Ears: Positive for: Normal Mouth: Positive for: Moist Mucous Membranes Pharnyx: Positive for: Normal Nose (Internal): Positive for: Normal Inspection Neck: Positive for: Normal Range of Motion, Trachea Midline. Negative for: Meningeal Signs, MIDLINE TENDERNESS, Paraspinal Tenderness, JVD, Lymphadenopathy, Bruit, Other Respiratory/Chest: Positive for: Decreased Breath Sounds, Rales, Rhonchi. Negative for: Clear to Auscultation, Respiratory Distress, Accessory Muscle Use, Wheezes, Tachypneic, Tender to Palpation Cardiovascular: Positive for: Regular Rate and Rhythm, Normal S1, S2, Peripheal Pulses Present. Negative for: Murmurs, Irregular Rhythm Abdomen: Positive for: Distention. Negative for: Tenderness, Peritoneal Signs Upper Extremity: Positive for: Normal Inspection Lower Extremity: Positive for: Normal Inspection Neurological: Positive for: Other (non verbal) - Medications Active Medications: Active Medications Generic Name Dose Route Start Last Admin Trade Name Freq PRN Reason Stop Dose Admin Aspirin 81 mg 06/20/18 09:00 06/23/18 10:12 Aspirin Chewable PO Not Given DAILY TOÁMS Guaifenesin 100 mg 06/19/18 21:47 06/26/18 08:48 Robitussin PO 100 mg Q4 PRN Administration Cough Haloperidol Lactate 5 mg 06/23/18 18:15 06/29/18 12:05 Haldol IVP 5 mg Q6 PRN Administration Agitation Voriconazole 300 mg/ Sodium 250 mls @ 125 mls/hr 06/26/18 21:00 06/30/18 10:42 Chloride IVPB 07/07/18 23:59 125 mls/hr Q12 TOMÁS Administration Protocol Cefepime HCl 1 gm/ Sodium 100 mls @ 100 mls/hr 06/29/18 11:15 06/30/18 10:40 Chloride IVPB 100 mls/hr DAILY TOMÁS Administration Protocol Ipratropium [place] 0.5 mg 06/28/18 02:00 06/30/18 07:48 Atrovent IH 0.5 mg RQ6 TOMÁS Administration Levalbuterol HCl 1.25 mg 06/28/18 02:00 06/30/18 07:48 Xopenex INH 1.25 mg RQ6 TOMÁS Administration Levalbuterol HCl 0.63 mg 06/27/18 21:44 06/28/18 05:43 Xopenex INH 0.63 mg RQ2 PRN Administration Shortness of Breath Metoprolol Tartrate 50 mg 06/19/18 22:00 06/30/18 00:42 Lopressor PO 50 mg Q12 TOMÁS Administration Morphine Sulfate 4 mg 06/30/18 06:11 06/30/18 10:41 Morphine IVP 4 mg Q6 PRN Administration Pain, severe (8-10) Morphine Sulfate 2 mg 06/30/18 06:11 06/30/18 06:32 Morphine IVP 2 mg Q6 PRN Administration Pain, moderate (4-7) Ondansetron HCl 4 mg 06/20/18 01:16 06/20/18 01:57 Zofran Inj IVP 4 mg Q6 PRN Administration Nausea/Vomiting - Patient Studies Lab Studies: Microbiology Studies 06/28/18 08:56 Ova and Parasite Concentrate Exam - Final Stool Lab Studies 06/30/18 06/30/18 06/30/18 Range/Units 06:02 04:20 04:20 WBC 3.1 L (4.8-10.8) K/uL RBC 2.83 L (4.40-5.90) Mil/uL Hgb 8.6 L (12.0-18.0) g/dL Hct 25.2 L (35.0-51.0) % MCV 88.8 (80.0-94.0) fl MCH 30.3 (27.0-31.0) pg MCHC 34.2 (33.0-37.0) g/dL RDW 17.2 H (11.5-14.5) % Plt Count 5 L* (130-400) K/uL Manual Plt Count (130-400) K/uL Sodium 145 (132-148) mmol/l Potassium 3.3 L (3.6-5.0) MMOL/L Chloride 106 (98-107) mmol/L Carbon Dioxide 26 (22-30) mmol/L Anion Gap 16 (10-20) BUN 85 H (9-20) mg/dl Creatinine 3.2 H (0.8-1.5) mg/dl Est GFR ( Amer) 23 Est GFR (Non-Af Amer) 19 Random Glucose 129 H (75-110) mg/dL Calcium 9.0 (8.4-10.2) mg/dL Total Bilirubin 3.7 H 3.7 H (0.2-1.3) mg/dl Direct Bilirubin 3.1 H (0.0-0.4) mg/ml AST 133 H 134 H D (17-59) U/L ALT 399 H 390 H D (21-72) U/L Alkaline Phosphatase 85 83 (38-126) U/L Lactate Dehydrogenase (313-618) U/L Total Protein 6.4 6.2 L (6.3-8.2) G/DL Albumin 3.0 L 3.0 L (3.5-5.0) g/dL Globulin 3.3 3.1 (2.2-3.9) gm/dL Albumin/Globulin Ratio 0.9 L 1.0 (1.0-2.1) Aspergillus flavus Ab (Negative) Aspergill fumigatus Ab (Negative) Aspergillus niger Ab (Negative) 06/29/18 06/29/18 06/24/18 Range/Units 14:20 11:34 16:12 WBC (4.8-10.8) K/uL RBC (4.40-5.90) Mil/uL Hgb (12.0-18.0) g/dL Hct (35.0-51.0) % MCV (80.0-94.0) fl MCH (27.0-31.0) pg MCHC (33.0-37.0) g/dL RDW (11.5-14.5) % Plt Count (130-400) K/uL Manual Plt Count 11 L* (130-400) K/uL Sodium (132-148) mmol/l Potassium (3.6-5.0) MMOL/L Chloride (98-107) mmol/L Carbon Dioxide (22-30) mmol/L Anion Gap (10-20) BUN (9-20) mg/dl Creatinine (0.8-1.5) mg/dl Est GFR ( Amer) Est GFR (Non-Af Amer) Random Glucose (75-110) mg/dL Calcium (8.4-10.2) mg/dL Total Bilirubin (0.2-1.3) mg/dl Direct Bilirubin (0.0-0.4) mg/ml AST (17-59) U/L ALT (21-72) U/L Alkaline Phosphatase (38-126) U/L Lactate Dehydrogenase 1001 H (313-618) U/L Total Protein (6.3-8.2) G/DL Albumin (3.5-5.0) g/dL Globulin (2.2-3.9) gm/dL Albumin/Globulin Ratio (1.0-2.1) Aspergillus flavus Ab Negative (Negative) Aspergill fumigatus Ab Negative (Negative) Aspergillus niger Ab Negative (Negative) Laboratory Results - last 24 hr 06/24/18 06/29/18 06/29/18 16:12 11:34 14:20 WBC RBC Hgb Hct MCV MCH MCHC RDW Plt Count Manual Plt Count 11 L* Sodium Potassium Chloride Carbon Dioxide Anion Gap BUN Creatinine Est GFR ( Amer) Est GFR (Non-Af Amer) Random Glucose Calcium Total Bilirubin Direct Bilirubin AST ALT Alkaline Phosphatase Lactate Dehydrogenase 1001 H Total Protein Albumin Globulin Albumin/Globulin Ratio Aspergillus flavus Ab Negative Aspergill fumigatus Ab Negative Aspergillus niger Ab Negative 06/30/18 06/30/18 06/30/18 04:20 04:20 06:02 WBC 3.1 L RBC 2.83 L Hgb 8.6 L Hct 25.2 L MCV 88.8 MCH 30.3 MCHC 34.2 RDW 17.2 H Plt Count 5 L* Manual Plt Count Sodium 145 Potassium 3.3 L Chloride 106 Carbon Dioxide 26 Anion Gap 16 BUN 85 H Creatinine 3.2 H Est GFR ( Amer) 23 Est GFR (Non-Af Amer) 19 Random Glucose 129 H Calcium 9.0 Total Bilirubin 3.7 H 3.7 H Direct Bilirubin 3.1 H AST 134 H D 133 H ALT 390 H D 399 H Alkaline Phosphatase 83 85 Lactate Dehydrogenase Total Protein 6.2 L 6.4 Albumin 3.0 L 3.0 L Globulin 3.1 3.3 Albumin/Globulin Ratio 1.0 0.9 L Aspergillus flavus Ab Aspergill fumigatus Ab Aspergillus niger Ab Critical Care Progress Note - Nutrition Nutrition: Nutrition Category Date Time Status NPO Diet [DIET] Diets 06/21/18 Breakfast Active Assessment/Plan - Assessment and Plan (Free Text) Assessment: 8 yo old Male with PMHx of HTN, CKD-4, Myelodysplastic Syndrome, CHF, Asthma and COPD with hx of recent discharge from [facility] for treatment of Aspergelliosis PNU admitted for Hypoxic respiratory failure 2/2 to COPD exacerbation vs HCAP (s/p extubation), Delirium, CHF, Pulmonary edema 2/2 to Acute renal failure, Severe Thrombocytpenia, transamintitis. Received Plasmaphoresis yesterday for concerns of TTP, however platelet count worse this morning. Poor prognosis, no improvements despite various interventions. Discussed with Dr. Donaldson (tugger operator/oncologist) who aggrees with poor prognosis and shifting focus to comfort care. Hospice consultation placed by primary team. #Delirium -Intermittently agitated, no change in mental status -Etiology unknown -Neuro consulted -Head CT no acute findings, generalized atrophy (06/28/18) #Cardiovascular -Hemodynamically stable #Pulmonology -stable, saturating well high flow FIO2 40 -C/W bronchodilators GI# -Transaminitis improving #Heme -Thrombocytopenia worsened, 5K today, few shistocytes on peripheral smear concerning for TTP. 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 Abel Moseley; and I agree with her outline of plans and management documented below as discussed on AM rounds reflecting my review of all applicable clinical data, and participation in the care of the patient throughout the day in ICU; today, June 30, 2018.
[2018-06-30 10:52] LABS: INR 1.5; PROTHROMBIN TIME 16.9 Seconds (9.8-13.1)
--- NOTE | 2018-06-30 11:18 | CP.PCM.PN ---
Subjective - Date & Time of Evaluation Date of Evaluation: 06/30/18 Time of Evaluation: 11:03 - Subjective Subjective: Pt is still non respohsive., lethargic and delirious. The renal and LFT are still very much elevated. Platelets have not improved. A plasmapheresis done did not show any change. I had a long talk with the pt's closest friends and his niece who he stays with re his condition and the total lack of response to any treatment, his delirium and system shut down. Also the fact that all his treating physicians agree with this. His friends finally agree that they too see that there is no improvement so they have agreed to a DNR and DNI. Pt has no other relatives except a ex that the ICU staff was unable to reach.The pt had not spoken to them in 12 yrs. Will discontinue the blood tests, and dialysis and other treatments . I discu ssed this with home health scheduler Dr Meng and we both agree that pt should be on supportive care only,.May consider inpatient hospice. Objective - Vital Signs/Intake and Output Vital Signs (last 24 hours): Temp Pulse Resp BP Pulse Ox 97.6 F 83 15 162/83 H 99 06/30/18 08:00 06/30/18 10:59 06/30/18 08:00 06/30/18 10:59 06/30/18 08:00 Intake and Output: 06/30/18 06/30/18 06:59 18:59 Intake Total 1110 Output Total 1000 Balance 110 - Medications Medications: Current Medications Aspirin (Aspirin Chewable) 81 mg PO DAILY TOMÁS Last Admin: 06/23/18 10:12 Dose: Not Given Guaifenesin (Robitussin) 100 mg PO Q4 PRN PRN Reason: Cough Last Admin: 06/26/18 08:48 Dose: 100 mg Haloperidol Lactate (Haldol) 5 mg IVP Q6 PRN PRN Reason: Agitation Last Admin: 06/29/18 12:05 Dose: 5 mg Voriconazole 300 mg/ Sodium (Chloride) 250 mls @ 125 mls/hr IVPB Q12 TOMÁS; Protocol Stop: 07/07/18 23:59 Last Admin: 06/30/18 10:42 Dose: 125 mls/hr Cefepime HCl 1 gm/ Sodium (Chloride) 100 mls @ 100 mls/hr IVPB DAILY TOMÁS; Protocol Last Admin: 06/30/18 10:40 Dose: 100 mls/hr Ipratropium [place] (Atrovent) 0.5 mg IH RQ6 TOMÁS Last Admin: 06/30/18 07:48 Dose: 0.5 mg Levalbuterol HCl (Xopenex) 1.25 mg INH RQ6 TOMÁS Last Admin: 06/30/18 07:48 Dose: 1.25 mg Levalbuterol HCl (Xopenex) 0.63 mg INH RQ2 PRN PRN Reason: Shortness of Breath Last Admin: 06/28/18 05:43 Dose: 0.63 mg Metoprolol Tartrate (Lopressor) 50 mg PO Q12 TOMÁS Last Admin: 06/30/18 10:59 Dose: 50 mg Morphine Sulfate (Morphine) 4 mg IVP Q6 PRN PRN Reason: Pain, severe (8-10) Last Admin: 06/30/18 10:41 Dose: 4 mg Morphine Sulfate (Morphine) 2 mg IVP Q6 PRN PRN Reason: Pain, moderate (4-7) Last Admin: 06/30/18 06:32 Dose: 2 mg Ondansetron HCl (Zofran Inj) 4 mg IVP Q6 PRN PRN Reason: Nausea/Vomiting Last Admin: 06/20/18 01:57 Dose: 4 mg - Labs Labs: 06/30/18 04:20 06/30/18 06:02 PT 16.9 Seconds (9.8-13.1) H D 06/30/18 10:43 INR 1.5 06/30/18 10:43
--- NOTE | 2018-06-30 12:45 | CP.PCM.PN ---
Subjective - Date & Time of Evaluation Date of Evaluation: 06/30/18 Time of Evaluation: 09:00 - Subjective Subjective: failed plasmapheresis DNR in effect will sign off Objective - Vital Signs/Intake and Output Vital Signs (last 24 hours): Temp Pulse Resp BP Pulse Ox 97.6 F 71 13 117/55 L 96 06/30/18 12:00 06/30/18 12:00 06/30/18 12:00 06/30/18 12:00 06/30/18 12:00 Intake and Output: 06/30/18 06/30/18 06:59 18:59 Intake Total 1110 Output Total 1000 Balance 110 - Medications Medications: Current Medications Aspirin (Aspirin Chewable) 81 mg PO DAILY TOMÁS Last Admin: 06/23/18 10:12 Dose: Not Given Guaifenesin (Robitussin) 100 mg PO Q4 PRN PRN Reason: Cough Last Admin: 06/26/18 08:48 Dose: 100 mg Haloperidol Lactate (Haldol) 5 mg IVP Q6 PRN PRN Reason: Agitation Last Admin: 06/29/18 12:05 Dose: 5 mg Voriconazole 300 mg/ Sodium (Chloride) 250 mls @ 125 mls/hr IVPB Q12 TOMÁS; Protocol Stop: 07/07/18 23:59 Last Admin: 06/30/18 10:42 Dose: 125 mls/hr Cefepime HCl 1 gm/ Sodium (Chloride) 100 mls @ 100 mls/hr IVPB DAILY TOM[facility]; Protocol Last Admin: 06/30/18 10:40 Dose: 100 mls/hr Ipratropium [place] (Atrovent) 0.5 mg IH RQ6 TOMÁS Last Admin: 06/30/18 07:48 Dose: 0.5 mg Levalbuterol HCl (Xopenex) 1.25 mg INH RQ6 TOM[facility] Last Admin: 06/30/18 07:48 Dose: 1.25 mg Levalbuterol HCl (Xopenex) 0.63 mg INH RQ2 PRN PRN Reason: Shortness of Breath Last Admin: 06/28/18 05:43 Dose: 0.63 mg Metoprolol Tartrate (Lopressor) 50 mg PO Q12 TOM[facility]S Last Admin: 06/30/18 10:59 Dose: 50 mg Morphine Sulfate (Morphine) 4 mg IVP Q6 PRN PRN Reason: Pain, severe (8-10) Last Admin: 06/30/18 10:41 Dose: 4 mg Morphine Sulfate (Morphine) 2 mg IVP Q6 PRN PRN Reason: Pain, moderate (4-7) Last Admin: 06/30/18 06:32 Dose: 2 mg Ondansetron HCl (Zofran Inj) 4 mg IVP Q6 PRN PRN Reason: Nausea/Vomiting Last Admin: 06/20/18 01:57 Dose: 4 mg - Labs Labs: 06/30/18 04:20 06/30/18 06:02 PT 16.9 Seconds (9.8-13.1) H D 06/30/18 10:43 INR 1.5 06/30/18 10:43 - Constitutional Appears: Confused, Cachectic, Chronically Ill - Head Exam Head Exam: NORMOCEPHALIC - Eye Exam Eye Exam: absent: Scleral icterus - ENT Exam ENT Exam: Mucous Membranes Dry - Neck Exam Neck Exam: absent: Lymphadenopathy - Respiratory Exam Respiratory Exam: Decreased Breath Sounds - Cardiovascular Exam Cardiovascular Exam: REGULAR RHYTHM - GI/Abdominal Exam GI & Abdominal Exam: Distended, Soft Assessment and Plan (1) ACS (acute coronary syndrome) Status: Acute (2) Acute respiratory failure with hypoxia Status: Acute (3) COPD (chronic obstructive pulmonary disease) Status: Acute (4) Pneumonia Status: Acute (5) Renal failure (ARF), acute on chronic Status: Acute (6) Myelodysplasia (myelodysplastic syndrome) Status: Chronic (7) Disseminated aspergillosis Status: Acute
[2018-06-30 16:06] VITALS: BP 135/47; PULSE 96; TEMP 97.9; O2SAT 90
[2018-06-30 16:20] VITALS: RESP 13
--- NOTE | 2018-06-30 20:23 | CP.PCM.PRO ---
Pronouncement of Note - Clinical Findings Physical Exam: No Response Verbal/Painful Stimuli, Absent Peripheral Puls es{Carotid & Femoral}, Absent Heart & Breath Sounds, No Pupillary Light Reflex, No Corneal Reflex, Pupils Fixed & Dilated, Absence of Vital Signs - Pronouncement Time Time of Pronouncement of : 19:20 - Notifications Pronouncement Notifications: Family Notified, Atending Notified Pump Technician Notified: No - Autopsy Autopsy Requested: No - [place]: [id number] Additional Comments: The patient was DNR in Hospice.
[2018-07-01] MEDS: Ipratropium 0.02% Inhal Soln (0.5 mg/2.5 ml) UD IH SCH (01:20)
[2018-07-01] MEDS: Levalbuterol 1.25 MG/3 ML Inhal Soln UD INH SCH (01:20)
== END 2018-06-30 19:20 | DRG 208 ==
LOC: H.ER 11:03 → H.ERHOLD 13:55 → H.TEL 17:17 → H.ICU/CCU 20:21
PROVIDERS: ADMIT Family Medicine; ATTEND Family Medicine
PROC: 3E02340 Introduction of Influenza Vaccine into Muscle, Percutaneous Approach (ICD-10-PCS; 2018-06-19)
PROC: 5A1945Z Respiratory Ventilation, 24-96 Consecutive Hours (ICD-10-PCS; principal; 2018-06-20)
PROC: 0BH18EZ Insertion of Endotracheal Airway into Trachea, Via Natural or Artificial Opening Endoscopic (ICD-10-PCS; 2018-06-20)
PROC: 06HY33Z Insertion of Infusion Device into Lower Vein, Percutaneous Approach (ICD-10-PCS; 2018-06-20)
PROC: 5A1D70Z Performance of Urinary Filtration, Intermittent, Less than 6 Hours Per Day (ICD-10-PCS; 2018-06-20)
PROC: 30233N1 Transfusion of Nonautologous Red Blood Cells into Peripheral Vein, Percutaneous Approach (ICD-10-PCS; 2018-06-21)
PROC: 5A19054 Respiratory Ventilation, Single, Nonmechanical (ICD-10-PCS; 2018-06-22)
PROC: 02HV33Z Insertion of Infusion Device into Superior Vena Cava, Percutaneous Approach (ICD-10-PCS; 2018-06-23)
PROC: B518ZZA Fluoroscopy of Superior Vena Cava, Guidance (ICD-10-PCS; 2018-06-23)
PROC: 3E04329 Introduction of Other Anti-infective into Central Vein, Percutaneous Approach (ICD-10-PCS; 2018-06-23)
PROC: 05HM33Z Insertion of Infusion Device into Right Internal Jugular Vein, Percutaneous Approach (ICD-10-PCS; 2018-06-24)
PROC: B543ZZA Ultrasonography of Right Jugular Veins, Guidance (ICD-10-PCS; 2018-06-24)
PROC: 30233R1 Transfusion of Nonautologous Platelets into Peripheral Vein, Percutaneous Approach (ICD-10-PCS; 2018-06-26)
PROC: 30233K1 Transfusion of Nonautologous Frozen Plasma into Peripheral Vein, Percutaneous Approach (ICD-10-PCS; 2018-06-27)
PROC: 6A551Z3 Pheresis of Plasma, Multiple (ICD-10-PCS; 2018-06-29)
DX: J96.01 Acute respiratory failure with hypoxia (principal); J15.9 Unspecified bacterial pneumonia; I50.33 Acute on chronic diastolic (congestive) heart failure; K72.00 Acute and subacute hepatic failure without coma; G92 Toxic encephalopathy; M31.1 Thrombotic microangiopathy; N17.9 Acute kidney failure, unspecified; N18.4 Chronic kidney disease, stage 4 (severe); I13.0 Hypertensive heart and chronic kidney disease with heart failure and stage 1 through stage 4 chronic kidney disease, or unspecified chronic kidney disease; J44.1 Chronic obstructive pulmonary disease with (acute) exacerbation; D61.818 Other pancytopenia; B44.7 Disseminated aspergillosis; E87.2 Acidosis; I24.9 Acute ischemic heart disease, unspecified; Z99.11 Dependence on respirator [ventilator] status; D46.Z Other myelodysplastic syndromes; E87.5 Hyperkalemia; I25.10 Atherosclerotic heart disease of native coronary artery without angina pectoris; E03.9 Hypothyroidism, unspecified; E78.5 Hyperlipidemia, unspecified; E78.00 Pure hypercholesterolemia, unspecified; F03.90 Unspecified dementia, unspecified severity, without behavioral disturbance, psychotic disturbance, mood disturbance, and anxiety; F41.9 Anxiety disorder, unspecified; Z66 Do not resuscitate; Z23 Encounter for immunization; Z99.2 Dependence on renal dialysis; Z78.1 Physical restraint status; Z95.1 Presence of aortocoronary bypass graft; Z95.5 Presence of coronary angioplasty implant and graft; Z74.01 Bed confinement status; Z87.891 Personal history of nicotine dependence; Z87.01 Personal history of pneumonia (recurrent)